=== PATIENT | female | born 2000 | race Caucasian/White ===

== ENCOUNTER 2022-08-25 10:37 | Emergency (ER) | payer OTHER, SELFPAY ==
[2022-08-25 10:38] VITALS: BP 126/92; PULSE 85; RESP 18; TEMP 36.5; O2SAT 100; BMI 42.9
[2022-08-25 10:46] VITALS: BMI 40.7
[2022-08-25 10:56] VITALS: BP 126/92; PULSE 77; O2SAT 99
[2022-08-25 11:07] LABS: Coronavirus 19, PCR Not Detected (NotDetected); Influenza A, PCR Not Detected (NotDetected); Influenza B, PCR Not Detected (NotDetected)
[2022-08-25 11:31] VITALS: BP 127/83; PULSE 64; O2SAT 98
--- NOTE | 2022-08-25 11:37 | PC.NURSE ---
DR. ADAMS AT BEDSIDE
--- NOTE | 2022-08-25 11:50 | XR_ITS ---
FINAL REPORT CLINICAL HISTORY: cough FINDINGS: PORTABLE CHEST The heart is normal in size. The mediastinum is unremarkable. The lungs are clear. There is no pneumothorax. IMPRESSION: No acute process. Reviewed, Interpreted and Dictated by Bola Kahn MD Transcribed by Jesusita Gama Authenticated and [facility]
--- NOTE | 2022-08-25 11:53 | HMH.EDGENADL ---
Discharge Plan Disposition Patient Disposition: Home, Self-Care Condition: Good Referrals Follow up/Referrals: Provider,Referral, [Primary Care Provider] - See instructions Activity Restrictions/Add. Instructions Additional Instructions/Restrictions: Tylenol or ibuprofen for pain or fever. Rest and drink plenty of fluids. Full respiratory panel result is pending, call back to the emergency department in 4 to 6 hours for results. Follow-up with primary care provider if not improving in 4 to 5 days. Clinical Impressions Clinical Impression: Upper respiratory infection, viral Stand Alone Forms Stand Alone Forms: Work/School Release Instructions Patient Instructions: DI for Viral Upper Respiratory Infection -- Adult Discharge ED Provider: Bijan Mccullough General Adult HPI General Chief complaint: Upper Respiratory Infection Stated complaint: Cough, fever Time Seen by Provider: 08/25/22 11:34 Mode of Arrival: Ambulatory Limitations: No Limitations Description of Symptoms (Recalled from ER Triage Doc. by RN): PT REPORTS COUGH, FEVER AND WATERY EYES THAT STARTED LAST NIGHT History of Present Illness HPI narrative: Patient states that she started getting sick last night. She has a cough which was mild initially but has worsened. She is coughing up some green mucus. She feels feverish, but has not taken her temperature. Has watery eyes. Sore throat only from coughing, no pain with swallowing. No earache. No body aches. Slight headache. Slight anterior chest pain. No shortness of breath. No vomiting or diarrhea. No known exposures. Related Data Allergies Allergy/AdvReac Type Severity Reaction Status Date / Time No Known Allergies Allergy Verified 08/25/22 10:51 [facility] Disclaimer: The information contained in this section may have been updated after the patient was seen, as this information can be updated by other users. Social History Smoking Status: Never smoker ROS Obtained: Yes Systems reviewed as appropriate & no additional complaints except as documented Constitutional Constitutional: Denies body ache, Reports fever(s) (Subjective), Reports headache(s) and Denies weakness ENT Ears, Nose, Mouth, and Throat: Reports headache(s), Denies nasal discharge and Reports sore throat (Only with cough) Cardiovascular Cardiovascular: Reports chest pain Respiratory Respiratory: Denies shortness of breath, Reports cough and Reports cough with sputum production Gastrointestinal Gastrointestingal: Denies abdominal pain, constipation, diarrhea or vomiting Genitourinary Female Genitourinary: Denies difficulty voiding, Denies dysuria and Denies flank pain Musculoskeletal Musculoskeletal: Denies numbness Neurologic Neurologic: Reports headache(s), Denies numbness and Denies weakness Physical Exam General General appearance: alert and in no apparent distress Head Head exam: atraumatic and normocephalic Eye Eye exam: Present normal appearance and EOMI ENT ENT exam: Present normal oropharynx, mucous membranes moist and TM's normal bilaterally Neck Neck exam: Present normal inspection and trachea midline Chest Chest inspection: Present normal inspection and symmetric chest wall rise Respiratory Respiratory exam: Present normal lung sounds bilaterally; Absent respiratory distress Cardiovascular Cardiovascular exam: Present regular rate, normal rhythm and normal heart sounds Abdominal Exam Abdominal exam: Present soft and normal bowel sounds; Absent distention, tenderness, guarding, rebound or rigidity Extremities Exam Extremities exam: Present normal inspection Neurological Exam Neurological exam: Present alert and oriented X3 Psychiatric Psychiatric exam: Present normal affect and normal mood Skin Skin exam: Present warm and dry Medical Decision Making Wilman Inquiry Pt receiving controlled substance: No Vital Signs: 08/25/22 10:38 08/25/22 10:56 08/25/22 11:31 Temperature 97.7 F
--- NOTE | 2022-08-25 11:57 | PC.NURSE ---
rad notified of xray order
[2022-08-25 12:08] LABS: Microscopic, Urine URINE MICROSCOPIC (MICROSCOPIC)
[2022-08-25 12:16] LABS: Urine Pregnancy, HCG Qual. Negative (Negative)
[2022-08-25 12:17] LABS: Appearance,Urine CLEAR (Clear); Bilirubin,Urine Negative (Negative); Blood, Urine 3+ (Negative); Color,Urine YELLOW (Yellow); Glucose,Urine (UA) Negative (Negative); Ketones,Urine Negative (Negative); Leukocyte Esterase,Urine 1+ (Negative); Nitrate,Urine Negative (Negative); Protein,Urine Negative (Negative); Specific Gravity, Urine 1.015 (1.005-1.030); Urobilinogen,Urine 0.2 EU/dl (0.2)
[2022-08-25 12:30] LABS: Bacteria,Urine 1+ /lpf
--- NOTE | 2022-08-25 12:37 | PC.NURSE ---
XR AT BEDSIDE
[2022-08-25 12:52] LABS: Adenovirus,PCR Not Detected (NotDetected); Bordetella Pertussis Not Detected (NotDetected); Chlamydophila Pneumoniae, PCR Not Detected (NotDetected); Coronavirus 19, PCR Not Detected (NotDetected); Coronavirus 229E Not Detected (NotDetected); Coronavirus NL63 Not Detected (NotDetected); Coronavirus OC43 Not Detected (NotDetected); Coronovirus HKU1,PCR Not Detected (NotDetected); Human Metapneumovirus Not Detected (NotDetected); Influenza A, PCR Not Detected (NotDetected); Influenza AH1, 2009 Not Detected (NotDetected); Influenza AH1, PCR Not Detected (NotDetected); Influenza AH3,PCR Not Detected (NotDetected); Influenza B, PCR Not Detected (NotDetected); Mycoplasma Pneumoniae, PCR Not Detected (NotDetected); Parainfluenza 1, PCR Not Detected (NotDetected); Parainfluenza 2, PCR Not Detected (NotDetected); Parainfluenza 3, PCR Not Detected (NotDetected); Parainfluenza 4, PCR Not Detected (NotDetected); Respiratory Syncytial Virus Not Detected (NotDetected); Rhinovirus/Enterovirus Not Detected (NotDetected)
[2022-08-25 13:05] VITALS: BP 108/65; PULSE 66; RESP 17; TEMP 37; O2SAT 100
== END 2022-08-25 13:05 | disposition home or self-care (01) ==
PROVIDERS: Emergency Provider Emergency Medicine
DX: J06.9 Acute upper respiratory infection, unspecified (principal); R50.9 Fever, unspecified; Z20.822 Contact with and (suspected) exposure to COVID-19
CPT/HCPCS: 71045; 81001; 81025; 87086; 87581; 87632; 87798; 99283; 99284; C9803; U0003; U0005

== ENCOUNTER 2022-10-25 21:30 | Emergency (ER) | payer OTHER, SELFPAY ==
[2022-10-25 21:31] VITALS: BP 130/87; PULSE 86; RESP 17; TEMP 36.8; O2SAT 98; BMI 45.4
[2022-10-25 21:39] VITALS: BP 130/87; PULSE 102; O2SAT 100
[2022-10-25 21:44] LABS: Coronavirus 19, PCR Not Detected (NotDetected); Influenza A, PCR Not Detected (NotDetected); Influenza B, PCR Not Detected (NotDetected)
--- NOTE | 2022-10-25 21:57 | HMH.EDGENADL ---
Discharge Plan Disposition Patient Disposition: Home, Self-Care Prescriptions Prescriptions: New cephalexin [cephalexin] 500 mg capsule 500 mg PO TID Qty: 21 0RF Referrals Follow up/Referrals: Provider,Referral, [Primary Care Provider] - See instructions Clinical Impressions Clinical Impression: Pharyngitis Instructions Patient Instructions: Sore Throat Discharge ED Provider: Montez BlackmonED)Fuad General Adult HPI General Chief complaint: PAIN Stated complaint: sore throat Time Seen by Provider: 10/25/22 21:57 Mode of Arrival: Ambulatory Source of Information: Patient and Medical Record Limitations: No Limitations Description of Symptoms (Recalled from ER Triage Doc. by RN): 21 F presents with a sore throat for 1 day. Denies fever, chills, or other cold like symptoms. History of Present Illness HPI narrative: sore throat with no cough or rash x 1 day Onset (ago): day(s) Severity: moderate Associated symptoms: denies other symptoms Related Data Previous Rx's Medication Instructions Recorded cephalexin 500 mg capsule 500 mg PO TID #21 caps 10/25/22 Allergies Allergy/AdvReac Type Severity Reaction Status Date / Time No Known Allergies Allergy Verified 08/25/22 10:51 [facility] Disclaimer: The information contained in this section may have been updated after the patient was seen, as this information can be updated by other users. Medical History (Updated 10/25/22 @ 22:18 by Fuad Herrmann (ED)MD) No significant past medical history Surgical History (Updated 10/25/22 @ 21:40 by Richard Mccartney RN) History of cholecystectomy History of tonsillectomy [place] teeth extracted Social History Smoking Status: Never smoker alcohol intake: never current occupational status: employed Travel in the last 8 weeks: None ROS Obtained: Yes All systems reviewed & no additional complaints except as documented Physical Exam General General appearance: alert Head Head exam: normocephalic Eye Eye exam: Present PERRL and EOMI; Absent scleral icterus ENT ENT exam: Present mucous membranes moist and TM's normal bilaterally Expanded ENT Exam Throat exam: Present tonsillar erythema; Absent tonsillar exudate, R peritonsillar mass, L peritonsillar mass or muffled voice Neck Neck exam: Present trachea midline; Absent meningismus Respiratory Respiratory exam: Absent respiratory distress Cardiovascular Cardiovascular exam: Present regular rate Extremities Exam Extremities exam: Present full ROM Neurological Exam Neurological exam: Present alert and CN II-XII intact Skin Skin exam: Absent rash Medical Decision Making Medical Records Medical records reviewed: Yes I reviewed the patient's medical records. Wilman Inquiry Pt receiving controlled substance: No Vital Signs: 10/25/22 21:31 10/25/22 21:39 10/25/22 22:00 Temperature 98.3 F Temperature Source Oral Pulse Rate 102 H 106 H Pulse Rate [Left] 86 Respiratory Rate 17 Blood Pressure 130/87 135/86 Blood Pressure [Right Arm] 130/87 Blood Pressure Mean [Right Arm] 101 Blood Pressure Source [Right Arm] Automatic Cuff Blood Pressure Position [Right Arm] Sitting 02 Sat by Pulse Oximetry 98 100 99 Oxygen Delivery Method Room Air Lab Data Lab results reviewed: Yes I reviewed the patient's lab results. Lab Results 10/25/22 21:38: Group A Strep Rapid Negative 10/25/22 21:38: SARS-CoV-2 (PCR) Not detected, Influenza A Untype (PCR) Not detected, Influenza Type B (PCR) Not detected Orders (Tests/Meds): ORDERS Category Date Time Status Rapid PCR Covid and Flu A/B Stat Lab 10/25/22 21:38 Completed Strep Scrn Group A (Rapid) Stat Lab 10/25/22 21:38 Completed Strep Screen Confirmation Stat Micro 10/25/22 21:38 Received Medical Decision Narrative: acute pharyngitis with no abscess or rash with neg screen Critical Care Time Critical Care Time Critical Care Time: No Attestati
[2022-10-25 21:58] LABS: Strep Scrn Group A (Rapid) Negative (Negative)
[2022-10-25 22:00] VITALS: BP 135/86; PULSE 106; O2SAT 99
[2022-10-25 22:53] VITALS: BP 134/82; PULSE 100; RESP 16; TEMP 36.8; O2SAT 100
== END 2022-10-25 22:54 | disposition home or self-care (01) ==
PROVIDERS: Emergency Provider Emergency Medicine
DX: J02.9 Acute pharyngitis, unspecified (principal); Z90.49 Acquired absence of other specified parts of digestive tract; Z20.822 Contact with and (suspected) exposure to COVID-19
CPT/HCPCS: 87430; 99283; 99284; C9803; U0003; U0005

== ENCOUNTER → 2023-02-25 16:43 | Outpatient (CLI) | payer OTHER, SELFPAY ==
[2023-02-25 12:12] LABS: Microscopic, Urine URINE MICROSCOPIC (MICROSCOPIC)
[2023-02-25 12:24] LABS: Basophils % 0.4 % (0.1-2.0); Eosinophils # 0.1 K/mm3 (0.0-0.4); Eosinophils % 1.6 % (0.1-12.0); Hematocrit 40.2 % (37.0-47.0); Hemoglobin 13.3 g/dL (12.2-16.2); Lymphocytes # 2.4 K/mm3 (0.7-4.5); Lymphocytes % 29.2 % (10-50); Mean Corpuscular Hemoglobin 26.5 pg (27.0-31.2); Mean Corpuscular Volume 80.2 fl (81-99); Mean Platelet Volume 8.7 fl (7.4-10.4); Monocytes # 0.3 K/mm3 (0.1-1.0); Monocytes % 3.7 % (1.7-9.3); Neutrophils # 5.4 K/mm3 (1.8-7.8); Neutrophils % 65.1 % (37.0-80.0); Platelet Count 340 K/mm3 (142-424); Red Blood Count 5.01 M/mm3 (4.20-5.40); Red Cell Distribution Width 14.4 % (11.5-17.5); White Blood Count 8.3 K/mm3 (4.8-10.8)
[2023-02-25 12:25] LABS: Appearance,Urine CLEAR (Clear); Blood, Urine 3+ (Negative); Color,Urine YELLOW (Yellow); Glucose,Urine (UA) Negative (Negative); Ketones,Urine Negative (Negative); Leukocyte Esterase,Urine TRACE (Negative); Nitrate,Urine Negative (Negative); PH,Urine 7.5 (5.0-8.5); Protein,Urine 1+ (Negative)
[2023-02-25 12:39] LABS: Bilirubin,Urine 1+ (Negative)
[2023-02-25 12:40] LABS: Bacteria,Urine Trace /lpf; RBC,Urine TNTC #/hpf (0-3); Squamous Epithelial Cell,Urine Occasional #/hpf (0-5); WBC,Urine Occasional #/hpf (0-3)
[2023-02-25 12:53] LABS: Alanine Aminotransferase 25 U/L (12-78); Albumin Level 4.7 g/dl (3.5-5.0); Albumin/Globulin Ratio 1.5 (1.1-1.8); Alkaline Phosphatase 99 U/L (38-126); Anion Gap 15.4 mEq/L (5-15); Aspartate Amino Transferase 26 U/L (14-36); Bilirubin,Total 0.6 mg/dl (0.2-1.3); Blood Urea Nitrogen 6 mg/dl (7-17); Calcium 9.5 mg/dl (8.4-10.2); Carbon Dioxide 25 mmol/L (22.0-30.0); Chloride 104 mmol/L (98-107); Chol/HDL Ratio 2.9 (1-3.5); Cholesterol 197 mg/dl (140-200); Estimated Glomerular Filt Rate 152 ml/min (>60); GFR (African American) 183 ML/MIN (>60); Globulin 3.1 g/dL (1.3-3.2); Glucose 83 mg/dl (74-100); HDL Cholesterol 68 mg/dl (40-60); Potassium 4.4 mmoL/L (3.5-5.1); Sodium 140 mmol/L (136-145); Total Protein,Serum 7.8 g/dl (6.3-8.2); Triglycerides 114 mg/dl (30-150); VLDL Cholesterol 23 mg/dL (0-40)
[2023-02-25 13:04] LABS: Direct LDL Cholesterol 96.79 mg/dL (100-129)
[2023-02-25 13:05] LABS: Hemoglobin A1C 5.6 % (4.0-6.0)
[2023-02-25 13:08] LABS: 25-OH Vitamin D, Total 18.7 ng/mL (30-100)
[2023-02-25 13:55] LABS: Vitamin B12 276 pg/mL (239-931)
[2023-02-26 20:10] LABS: Neisseria gonorrhoeae, NAA Negative (Negative)
== END ==
PROVIDERS: PCP Nurse Practitioner Family; Visit Provider Nurse Practitioner Family
DX: Z00.00 Encounter for general adult medical examination without abnormal findings (principal); R30.9 Painful micturition, unspecified; E55.9 Vitamin D deficiency, unspecified; R53.83 Other fatigue; E66.01 Morbid (severe) obesity due to excess calories; Z68.42 Body mass index [BMI] 45.0-49.9, adult; Z11.8 Encounter for screening for other infectious and parasitic diseases; Z13.1 Encounter for screening for diabetes mellitus; Z13.220 Encounter for screening for lipoid disorders
CPT/HCPCS: 80053; 80061; 81001; 82306; 82607; 83036; 84443; 85025; 87086; 87491; 87591

== ENCOUNTER 2023-03-11 19:01 | Emergency (ER) | payer OTHER, SELFPAY ==
[2023-03-11 19:04] VITALS: BP 145/109; PULSE 118; RESP 18; TEMP 36.8; O2SAT 98; BMI 46.3
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
[2023-03-11 19:54] VITALS: BP 134/91; PULSE 114; RESP 18; TEMP 36.8
== END 2023-03-11 20:07 | disposition home or self-care (01) ==
PROVIDERS: Emergency Provider Emergency Medicine; PCP Nurse Practitioner Family
DX: S16.1XXA Strain of muscle, fascia and tendon at neck level, initial encounter (principal); R51.9 Headache, unspecified; R11.0 Nausea; V43.62XA Car passenger injured in collision with other type car in traffic accident, initial encounter; F32.A Depression, unspecified
CPT/HCPCS: 99283

== ENCOUNTER → 2023-03-15 16:51 | Outpatient (CLI) | payer OTHER, SELFPAY ==
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
== END ==
PROVIDERS: PCP Nurse Practitioner Family; Visit Provider Nurse Practitioner Family
DX: M54.2 Cervicalgia (principal)
CPT/HCPCS: 72050

== ENCOUNTER → 2023-04-08 10:23 | Outpatient (CLI) | payer OTHER, SELFPAY ==
--- NOTE | 2023-04-08 10:34 | XR_ITS ---
FINAL REPORT CLINICAL HISTORY: Rt wrist pain COMPARISON: None FINDINGS: RIGHT WRIST Three views demonstrate no acute fracture or dislocation. The visualized joint spaces are normally aligned. The soft tissues are unremarkable. IMPRESSION: No acute bony abnormality. Reviewed, Interpreted and Dictated by Feliz Patrick III, MD Transcribed by Genoveva Holder Authenticated and [facility]
== END ==
PROVIDERS: PCP Nurse Practitioner Family; Visit Provider Orthopaedic Surgery
DX: M67.431 Ganglion, right wrist (principal)
CPT/HCPCS: 73110

== ENCOUNTER → 2023-05-24 23:15 | Outpatient (CLI) | payer OTHER, SELFPAY | PROVIDERS: PCP Nurse Practitioner Family; Visit Provider Nurse Practitioner Family | DX: J02.9 Acute pharyngitis, unspecified (principal) | CPT/HCPCS: 87070 ==

== ENCOUNTER → 2023-05-26 09:29 | Outpatient (CLI) | payer OTHER, SELFPAY ==
--- NOTE | 2023-05-26 09:42 | ECG_ITS ---
APPROVED REPORT Exam: Resting ECG HR:78 bpm ECG Measurements Heart Rate 78 AXES NM 144 P 25 QRSd 92 QRS 75 QT 357 T 37 QTc 390 Conclusion SINUS RHYTHM WITH SINUS ARRHYTHMIA NORMAL ECG UNCONFIRMED REPORT Electronically signed by : Last Recinos MD 05/27/2023 07:31:48
[2023-05-26 09:52] LABS: MANUAL DIFFERENTIAL MANUAL DIFFERENTIAL (MANUAL DIFF)
--- NOTE | 2023-05-26 10:01 | XR_ITS ---
FINAL REPORT CLINICAL HISTORY: congestion COMPARISON: 08/25/2022 FINDINGS: Two views of the chest were obtained. The heart size and pulmonary vascularity are within normal limits. The mediastinum is normal. No acute pulmonary abnormality is identified. There is no pneumothorax. The bony thorax is intact. IMPRESSION: No active cardiopulmonary disease. Reviewed, Interpreted and Dictated by Feliz Patrick III, MD Transcribed by Genoveva Holder Authenticated and . [facility]
[2023-05-26 10:12] LABS: Basophils % 0.3 % (0.1-2.0); Eosinophils # 0.1 K/mm3 (0.0-0.4); Eosinophils % 1.1 % (0.1-12.0); Hematocrit 41.8 % (37.0-47.0); Hemoglobin 13.6 g/dL (12.2-16.2); Lymphocytes # 3.1 K/mm3 (0.7-4.5); Mean Corpuscular HGB Conc 32.5 g/dL (31.8-35.4); Mean Corpuscular Hemoglobin 26.9 pg (27.0-31.2); Mean Corpuscular Volume 82.8 fl (81-99); Mean Platelet Volume 8.2 fl (7.4-10.4); Monocytes # 0.2 K/mm3 (0.1-1.0); Monocytes % 2.9 % (1.7-9.3); Neutrophils # 4.7 K/mm3 (1.8-7.8); Neutrophils % 57.7 % (37.0-80.0); Platelet Count 315 K/mm3 (142-424); Red Blood Count 5.05 M/mm3 (4.20-5.40); Red Cell Distribution Width 14.6 % (11.5-17.5); White Blood Count 8.1 K/mm3 (4.8-10.8)
[2023-05-26 10:47] LABS: Alanine Aminotransferase 33 U/L (12-78); Albumin Level 4.2 g/dl (3.5-5.0); Albumin/Globulin Ratio 1.4 (1.1-1.8); Alkaline Phosphatase 92 U/L (38-126); Anion Gap 12.4 mEq/L (5-15); Aspartate Amino Transferase 33 U/L (14-36); Bilirubin,Total 0.3 mg/dl (0.2-1.3); Blood Urea Nitrogen 14 mg/dl (7-17); Calcium 9.1 mg/dl (8.4-10.2); Carbon Dioxide 27 mmol/L (22.0-30.0); Chloride 103 mmol/L (98-107); Estimated Glomerular Filt Rate 123 ml/min (>60); GFR (African American) 149 ML/MIN (>60); Globulin 3.1 g/dL (1.3-3.2); Glucose 106 mg/dl (74-100); Potassium 4.4 mmoL/L (3.5-5.1); Sodium 138 mmol/L (136-145); Total Protein,Serum 7.3 g/dl (6.3-8.2)
[2023-05-26 11:36] LABS: Eosinophils % 1 % (0-3); Lymphocytes % 38 % (10-50); Monocytes % 5 % (2-9); Neutrophils % 55 % (42-76); Total Cells Counted 100
[2023-05-26 11:37] LABS: Platelet Estimate Normal; RBC Morphology Normal
== END ==
PROVIDERS: PCP Nurse Practitioner Family; Visit Provider Orthopaedic Surgery
DX: Z01.818 Encounter for other preprocedural examination (principal); M67.431 Ganglion, right wrist
CPT/HCPCS: 36415; 71046; 80053; 85007; 85014; 85018; 85048; 85049; 93005

== ENCOUNTER 2023-06-01 11:19 | Day surgery (SDC) | payer OTHER, SELFPAY ==
[2023-06-01] VITALS (8 sets, daily range): BP systolic 113–140; BP diastolic 68–89; PULSE 68–96; RESP 16–18; TEMP 36.4–36.6; O2SAT 97–100; BMI 46.5
[2023-06-01 11:43] LABS: Urine Pregnancy, HCG Qual. Negative (Negative)
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
--- NOTE | 2023-06-01 14:16 | P.OP_ITS ---
Date of procedure: 06/01/23 Pre-op Diagnosis:: Right wrist dorsal ganglion cyst Post-op Diagnosis:: Right wrist dorsal ganglion cyst Procedure performed:: Right wrist dorsal ganglion cyst excision Surgeon:: Madhu Calvin MD Hourly Caregiver(s):: None ICE DELIVERY DRIVER:: Other Anesthesia: local and LMA Estimated blood loss (mL): 0 Clinical Note:: Penelope is a pleasant 22-year-old female dealing with right dorsal wrist pain and swelling over the past couple months secondary to a ganglion cyst. A cortisone injection only helped for a few days. We discussed all the risks, benefits and alternatives to right wrist dorsal ganglion cyst excision and she agreed to proceed. Surgical consent form was signed. Operative findings:: Right wrist dorsal ganglion cyst off the scapholunate joint Operative note:: The patient was seen in the preoperative holding area. The right wrist was marked to confirm the correct operative site. She received Ancef 2 g IV prophylactic antibiotics within 1 hour of incision time. She was brought back to the OR. General anesthesia induced without difficulty. Nonsterile tourniquet applied to the right arm. Right upper extremity prepped and draped in the usual sterile fashion. Timeout formed to confirm right wrist dorsal ganglion cyst excision on patient Penelope Christina. The right extremity was exsanguinated with an Esmarch. Tourniquet was inflated to 250 mmHg. I made a horizontal incision with a 15 blade scalpel centered over the dorsal wrist ganglion cyst. This was carried down through subcutaneous tissue. The cyst was identified. Tenotomy scissors were used to dissected around the cyst along with Ragnell retractors. The cyst came off the scapholunate joint. Extensor tendons were protected with the Ragnell retractors. The cyst was excised off the dorsal aspect the scapholunate joint. About 1 x 1 cm in size. Consistent with a ganglion cyst in appearance so was not sent to pathology. Dorsal aspect of the scapholunate capsule where the cyst stalk came off was cauterized with bipolar electrocautery to help prevent cyst recurrence. Bipolar also used in the subcutaneous tissue to maintain adequate hemostasis. At this time with the wound was irrigated with sterile saline. We then proceeded with closure. The dermis was closed with interrupted 3-0 Vicryl suture. The skin was closed with a running 4-0 Monocryl subcuticular suture. We then applied Dermabond. Then a sterile dressing with 4 x 4, soft roll and a 3 inch J Carlos bandage. Tourniquet was deflated at 18 minutes. Transferred to recovery in stable condition. All sponge and needle counts correct x2. Postoperative plan: Plan to discharge home from recovery. Okay to remove the soft dressing in a few days but keep the dorsal wrist incision clean and dry until her follow-up appointment. Hydrocodone 5/325 mg to take as needed for pain. We will see her back in the office on 06/23. Tourniquet time (min): 18 Condition: stable Disposition: PACU Specimens:: Right dorsal wrist ganglion cyst. Not sent to pathology. Complications:: None
--- NOTE | 2023-06-01 14:26 | EXP.ANES.I ---
[facility] Anesthesia Record Part I Anesthesia Record I Intake, IV Amount: 500 Hydration: Adequate Estimated blood loss (mL): 5 Urine output (mL): 0 Blood Products used (#): none Blood Pressure: 140/78 SaO2: 98 Pulse Rate: 96 Airway Patency: Patent Respiratory Rate: 16 Temperature: 97.5 F Patient is:: Awake and Stable Stable to PACU at:: 14:22
--- NOTE | 2023-06-02 08:19 | EXP.ANES.II ---
[facility] Anesthesia Record Part II Anesthesia Record Part II Discharge Time: 14:47 Destination: Surgical Day Care (OP Surgery) PACU nurse assessment reviewed?: Yes Patient Condition:: Good Anesthesia Complications:: None Swallowing reflex intact?: Yes Airway Patency: Patent Cyanosis?: No Blood Pressure: 131/68 SaO2: 97 Respiratory Rate: 18 Pulse Rate: 74 Temperature: 97.5 F Mental Status: Alert & Oriented Pain level:: 0 Nausea and/or vomitting:: None Intake, IV Amount: 500 Hydration: Adequate
[2023-06-02 08:20] VITALS: BP 131/68; PULSE 74; RESP 18; TEMP 36.4; O2SAT 97
== END 2023-06-01 15:16 | disposition home or self-care (01) ==
PROVIDERS: PCP Nurse Practitioner Family; Visit Provider Orthopaedic Surgery
PROC: (CPT 25111; principal; 2023-06-01 13:00)
DX: M67.431 Ganglion, right wrist (principal); M25.531 Pain in right wrist
CPT/HCPCS: 25111; 81025; 96374; J2405

== ENCOUNTER → 2023-07-26 23:59 | Outpatient (CLI) | payer OTHER, SELFPAY ==
[2023-07-26 17:29] LABS: Adenovirus,PCR Not Detected (NotDetected); Coronavirus 19, PCR Not Detected (NotDetected); Coronavirus 229E Not Detected (NotDetected); Coronavirus NL63 Not Detected (NotDetected); Coronavirus OC43 Not Detected (NotDetected); Coronovirus HKU1,PCR Not Detected (NotDetected); Human Metapneumovirus Not Detected (NotDetected); Influenza A, PCR Not Detected (NotDetected); Influenza AH1, 2009 Not Detected (NotDetected); Influenza AH1, PCR Not Detected (NotDetected); Influenza AH3,PCR Not Detected (NotDetected); Influenza B, PCR Not Detected (NotDetected); Parainfluenza 1, PCR Not Detected (NotDetected); Parainfluenza 2, PCR Not Detected (NotDetected); Parainfluenza 3, PCR Not Detected (NotDetected); Parainfluenza 4, PCR Not Detected (NotDetected); Rhinovirus/Enterovirus Not Detected (NotDetected)
[2023-07-26 21:05] LABS: Respiratory Syncytial Virus Detected (NotDetected)
== END ==
PROVIDERS: PCP Nurse Practitioner Family; Visit Provider Nurse Practitioner Family
DX: R35.0 Frequency of micturition (principal); J02.9 Acute pharyngitis, unspecified; B95.0 Streptococcus, group A, as the cause of diseases classified elsewhere; B96.89 Other specified bacterial agents as the cause of diseases classified elsewhere; B97.4 Respiratory syncytial virus as the cause of diseases classified elsewhere
CPT/HCPCS: 87070; 87086; 87632; 87635

== ENCOUNTER 2023-10-08 09:15 | Emergency (ER) | payer OTHER, SELFPAY ==
[2023-10-08 09:15] VITALS: BP 147/90; PULSE 86; RESP 16; TEMP 36.6; O2SAT 97; BMI 48.2
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
[2023-10-08] MEDS: ONDANSETRON 4MG ODT 4 MG SL (09:40)
[2023-10-08 10:01] LABS: Coronavirus 19, PCR Not Detected (NotDetected); Influenza A, PCR Not Detected (NotDetected); Influenza B, PCR Not Detected (NotDetected)
[2023-10-08 10:01] LABS: Strep Scrn Group A (Rapid) Negative (Negative)
[2023-10-08 10:21] VITALS: BP 128/76; PULSE 84; RESP 14; TEMP 36.6
== END 2023-10-08 10:16 | disposition home or self-care (01) ==
PROVIDERS: Emergency Provider Emergency Medicine; PCP Nurse Practitioner Family
DX: R05.1 Acute cough (principal); R07.0 Pain in throat; R11.0 Nausea; Z20.818 Contact with and (suspected) exposure to other bacterial communicable diseases; Z20.828 Contact with and (suspected) exposure to other viral communicable diseases
CPT/HCPCS: 87430; 87636; 99283

== ENCOUNTER 2023-10-18 15:59 | Emergency (ER) | payer OTHER, SELFPAY ==
[2023-10-18 16:01] VITALS: BP 154/94; PULSE 105; RESP 16; TEMP 36.7; O2SAT 100; BMI 48.2
[2023-10-18] MEDS: IBUPROFEN 400 MG TABLET 800 MG PO (16:48)
[2023-10-18] MEDS: DEXAMETHASONE 4MG TABLET 10 MG PO (16:48)
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
[2023-10-18 16:52] LABS: Influenza A, PCR Not Detected (NotDetected); Influenza B, PCR Not Detected (NotDetected)
[2023-10-18 17:24] LABS: Coronavirus 19, PCR Detected (NotDetected)
[2023-10-18 17:29] VITALS: BP 140/86; PULSE 96; O2SAT 97
--- NOTE | 2023-10-18 17:53 | PC.NURSE ---
I called lab to check on the strep swab. Gerber states it will be done in two minutes.
[2023-10-18 17:54] LABS: Strep Scrn Group A (Rapid) Negative (Negative)
[2023-10-18 18:46] VITALS: BP 140/86; PULSE 96; RESP 18; TEMP 36.7; O2SAT 97
== END 2023-10-18 18:47 | disposition home or self-care (01) ==
PROVIDERS: Emergency Provider Student in an Organized Health Care Education/Training Program; PCP Nurse Practitioner Family
DX: U07.1 COVID-19 (principal); J02.9 Acute pharyngitis, unspecified; R50.9 Fever, unspecified; R05.9 Cough, unspecified
CPT/HCPCS: 87430; 87636; 99283

== ENCOUNTER 2024-04-19 12:57 | Outpatient (POV) | payer BC, OTHER, SELFPAY ==
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
[2024-04-19 14:39] VITALS: BP 134/86; PULSE 98; RESP 18; O2SAT 100; BMI 49.9
== END 2024-04-19 23:59 | disposition home or self-care (01) ==
PROVIDERS: PCP Nurse Practitioner Family; Visit Provider Nurse Practitioner Family
DX: M79.7 Fibromyalgia (principal); M54.50 Low back pain, unspecified; M54.2 Cervicalgia
CPT/HCPCS: 99202; G0463

== ENCOUNTER 2024-05-24 13:08 | Outpatient (CLI) | payer OTHER, SELFPAY ==
--- NOTE | 2024-05-24 13:17 | XR_ITS ---
FINAL REPORT CLINICAL HISTORY: left ankle pain and swelling COMPARISON: None FINDINGS: LEFT ANKLE Three views demonstrate no acute fracture or dislocation. The visualized joint spaces are normally aligned. The soft tissues are unremarkable. IMPRESSION: No acute bony abnormality. Reviewed, Interpreted and Dictated by Rodney Beth MD Transcribed by Genoveva Holder Authenticated and . [facility]
--- NOTE | 2024-05-24 13:17 | XR_ITS ---
FINAL REPORT TECHNIQUE: Chest PA & Lateral CLINICAL HISTORY: Shortness of breath x1 month COMPARISON: 05/26/2023 FINDINGS: 2 views of the chest were performed. The heart size is normal. The mediastinum is within normal limits. There is no acute cardiopulmonary process. There are no pleural effusions. There is no pneumothorax. The bony thorax appears intact. IMPRESSION: No acute cardiopulmonary process. Reviewed, Interpreted and Dictated by Rodney Beth MD Transcribed by Brittany Roach Authenticated and [facility]
[2024-05-24 13:49] LABS: Basophils # 0.1 K/mm3 (0-0.2); Basophils % 0.8 % (0.1-2.0); Eosinophils # 0.1 K/mm3 (0.0-0.4); Eosinophils % 1.2 % (0.1-12.0); Hematocrit 42.1 % (37.0-47.0); Hemoglobin 13.5 g/dL (12.2-16.2); Lymphocytes # 3.2 K/mm3 (0.7-4.5); Lymphocytes % 30.4 % (10-50); Mean Corpuscular HGB Conc 32.1 g/dL (31.8-35.4); Mean Corpuscular Hemoglobin 27.2 pg (27.0-31.2); Mean Corpuscular Volume 84.6 fl (81-99); Mean Platelet Volume 7.7 fl (7.4-10.4); Monocytes # 0.4 K/mm3 (0.1-1.0); Monocytes % 3.5 % (1.7-9.3); Neutrophils # 6.7 K/mm3 (1.8-7.8); Neutrophils % 64.1 % (37.0-80.0); Platelet Count 338 K/mm3 (142-424); Red Blood Count 4.97 M/mm3 (4.20-5.40); Red Cell Distribution Width 14.5 % (11.5-17.5); White Blood Count 10.5 K/mm3 (4.8-10.8)
[2024-05-24 14:48] LABS: Hemoglobin A1C 5.8 % (4.0-6.0)
[2024-05-24 20:18] LABS: Adenovirus,PCR Not Detected (NotDetected); Bordetella Pertussis Not Detected (NotDetected); Chlamydophila Pneumoniae, PCR Not Detected (NotDetected); Coronavirus 19, PCR Not Detected (NotDetected); Coronavirus 229E Not Detected (NotDetected); Coronavirus NL63 Not Detected (NotDetected); Coronavirus OC43 Not Detected (NotDetected); Coronovirus HKU1,PCR Not Detected (NotDetected); Human Metapneumovirus Not Detected (NotDetected); Influenza A, PCR Not Detected (NotDetected); Influenza AH1, 2009 Not Detected (NotDetected); Influenza AH1, PCR Not Detected (NotDetected); Influenza AH3,PCR Not Detected (NotDetected); Influenza B, PCR Not Detected (NotDetected); Microscopic, Urine URINE MICROSCOPIC (MICROSCOPIC); Mycoplasma Pneumoniae, PCR Not Detected (NotDetected); Parainfluenza 1, PCR Not Detected (NotDetected); Parainfluenza 2, PCR Not Detected (NotDetected); Parainfluenza 3, PCR Not Detected (NotDetected); Parainfluenza 4, PCR Not Detected (NotDetected); Respiratory Syncytial Virus Not Detected (NotDetected); Rhinovirus/Enterovirus Not Detected (NotDetected)
[2024-05-24 20:46] LABS: Alanine Aminotransferase 28 U/L (12-78); Albumin Level 4.5 g/dl (3.5-5.0); Albumin/Globulin Ratio 1.6 (1.1-1.8); Alkaline Phosphatase 82 U/L (38-126); Anion Gap 9.2 mEq/L (5-15); Aspartate Amino Transferase 29 U/L (14-36); Bilirubin,Total 0.7 mg/dl (0.2-1.3); Blood Urea Nitrogen 8 mg/dl (7-17); Calcium 9.7 mg/dl (8.4-10.2); Carbon Dioxide 29 mmol/L (22.0-30.0); Chloride 102 mmol/L (98-107); Chol/HDL Ratio 2.7 (1-3.5); Cholesterol 191 mg/dl (140-200); Estimated Glomerular Filt Rate 150 ml/min (>60); GFR (African American) 182 ML/MIN (>60); Globulin 2.9 g/dL (1.3-3.2); Glucose 79 mg/dl (74-100); HDL Cholesterol 72 mg/dl (40-60); Potassium 4.2 mmoL/L (3.5-5.1); Sodium 136 mmol/L (136-145); Total Protein,Serum 7.4 g/dl (6.3-8.2); Triglycerides 159 mg/dl (30-150); VLDL Cholesterol 32 mg/dL (0-40)
[2024-05-24 21:03] LABS: 25-OH Vitamin D, Total 26.1 ng/mL (30-100); Free T4 (Free Thyroxine) 1.06 ng/dl (0.78-2.19)
[2024-05-24 21:18] LABS: Thyroid Stimulating Hormone 1.13 uIU/mL (0.465-4.68)
[2024-05-24 21:37] LABS: Vitamin B12 339 pg/mL (239-931)
[2024-05-24 21:38] LABS: Appearance,Urine SL CLOUDY (Clear); Bilirubin,Urine Negative (Negative); Blood, Urine Negative (Negative); Color,Urine YELLOW (Yellow); Glucose,Urine (UA) Negative (Negative); Ketones,Urine Negative (Negative); Leukocyte Esterase,Urine Negative (Negative); Nitrate,Urine Negative (Negative); PH,Urine 8.5 (5.0-8.5); Protein,Urine Negative (Negative)
[2024-05-24 21:46] LABS: Bacteria,Urine 1+ /lpf; WBC,Urine Occasional #/hpf (0-3)
[2024-05-24 21:47] LABS: HIV (1&2) Antibody Rapid NONREACTIVE (NONREACTIVE)
[2024-05-24 22:16] LABS: Iron 57 ug/dL (37-170)
[2024-05-24 22:25] LABS: Total Iron Binding Capacity 400 ug/dL (265-497)
[2024-05-24 22:30] LABS: Direct LDL Cholesterol 87.01 mg/dL (100-129)
[2024-05-24 22:58] LABS: Ferritin 18.4 ng/ml (6.24-137)
== END 2024-05-24 23:59 | disposition home or self-care (01) ==
LOC: LAB 14:30
PROVIDERS: PCP Nurse Practitioner Family; Visit Provider Nurse Practitioner Family
DX: M25.472 Effusion, left ankle (principal); M25.572 Pain in left ankle and joints of left foot; R06.00 Dyspnea, unspecified; Z68.43 Body mass index [BMI] 50.0-59.9, adult; E55.9 Vitamin D deficiency, unspecified; B97.89 Other viral agents as the cause of diseases classified elsewhere; J98.8 Other specified respiratory disorders; R53.83 Other fatigue; Z13.1 Encounter for screening for diabetes mellitus; I10 Essential (primary) hypertension; R60.0 Localized edema; Z11.4 Encounter for screening for human immunodeficiency virus [HIV]; R42 Dizziness and giddiness; R51.9 Headache, unspecified; E61.1 Iron deficiency; R73.03 Prediabetes; M79.7 Fibromyalgia
CPT/HCPCS: 36415; 71046; 73610; 80050; 80053; 80061; 81001; 82306; 82607; 82728; 83036; 83540; 83550; 84439; 84443; 85025; 87086; 87265; 87389; 87486; 87581; 87632; 87635

== ENCOUNTER 2024-05-30 14:53 | Outpatient (CLI) | payer OTHER, SELFPAY | END 2024-05-30 23:59 | disposition home or self-care (01) | LOC: RT 14:54 | PROVIDERS: PCP Nurse Practitioner Family; Visit Provider Nurse Practitioner Family | DX: R06.00 Dyspnea, unspecified (principal) | CPT/HCPCS: 94060 ==

== ENCOUNTER 2024-09-12 14:27 | Outpatient (POV) | payer OTHER, SELFPAY ==
[2024-09-12 14:30] VITALS: BP 167/98; PULSE 98; RESP 16; O2SAT 96; BMI 48.4
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
== END 2024-09-12 23:59 | disposition home or self-care (01) ==
PROVIDERS: PCP Nurse Practitioner Family; Visit Provider Nurse Practitioner Family
DX: M79.7 Fibromyalgia (principal)
CPT/HCPCS: 99212; G0463

== ENCOUNTER 2024-10-11 14:56 | Outpatient (POV) | payer OTHER, SELFPAY ==
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
[2024-10-11 15:44] VITALS: BP 137/64; PULSE 85; RESP 18; O2SAT 96; BMI 48.4
== END 2024-10-11 23:59 | disposition home or self-care (01) ==
PROVIDERS: PCP Nurse Practitioner Family; Visit Provider Nurse Practitioner Family
DX: M79.7 Fibromyalgia (principal)
CPT/HCPCS: 99212; G0463

== ENCOUNTER 2024-10-25 16:44 | Outpatient (CLI) | payer OTHER, SELFPAY | END 2024-10-25 23:59 | disposition home or self-care (01) | LOC: LAB.DROPOF 16:45 | PROVIDERS: PCP Nurse Practitioner Family; Visit Provider Nurse Practitioner Family | DX: N39.0 Urinary tract infection, site not specified (principal) | CPT/HCPCS: 87086 ==

== ENCOUNTER 2024-11-08 16:53 | Emergency (ER) | payer OTHER, SELFPAY ==
[2024-11-08 17:10] VITALS: BP 123/82; PULSE 93; RESP 18; TEMP 36.4; O2SAT 100; BMI 44.1
[2024-11-08 17:45] VITALS: BP 128/78; PULSE 83; RESP 18; TEMP 36.6; O2SAT 98
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
[2024-11-08] MEDS: ONDANSETRON 4MG ODT 4 MG SL (18:32)
== END 2024-11-08 19:09 | disposition home or self-care (01) ==
PROVIDERS: Emergency Provider Emergency Medicine; PCP Nurse Practitioner Family
DX: R11.2 Nausea with vomiting, unspecified (principal); R19.7 Diarrhea, unspecified; R05.9 Cough, unspecified; Z20.828 Contact with and (suspected) exposure to other viral communicable diseases
CPT/HCPCS: 99283; Q0162

== ENCOUNTER 2024-11-10 08:28 | Outpatient (CLI) | payer OTHER, SELFPAY ==
--- NOTE | 2024-11-10 08:29 | FL_ITS ---
FINAL REPORT CLINICAL HISTORY: NAUSEA AND VOMITING FT: 1:46 153.50 MGY FINDINGS: UPPER GI EXAM HISTORY: Epigastric pain with nausea and vomiting PROCEDURE: The patient ingested barium. Effervescent crystals were also administered. 17 spot and overhead films were obtained. FINDINGS: No esophageal stricture is identified. There is no hiatal hernia. The patient is status post gastric bbypass. The gastric pouch empties appropriately. No obstruction or extravasation of contrast is identified. No gastroesophageal reflux was demonstrated during the exam. Fluoro time: 1 minute 46 seconds Radiation exposure in Reference air Kerma: 153.50 mGy. IMPRESSION: Postoperative changes of gastric bypass. Otherwise, unremarkable exam. Films reviewed , interpreted and dictated by Dr. Kahn. Transcribed by Pelon Morris PA-C. Reviewed, Interpreted and Dictated by Bola Kahn MD Transcribed by ANAIS Oreilly Authenticated and [facility]
[2024-11-10] MEDS: BARIUM SULFATE(LIQUID E-Z-PAQUE);355ML BOTTLE 355 ML PO (09:06)
[2024-11-10] MEDS: BARIUM SULFATE (E-Z-HD 340GM);135ML BOTTLE 135 ML PO (09:06)
== END 2024-11-10 23:59 | disposition home or self-care (01) ==
LOC: RAD 08:28
PROVIDERS: PCP Nurse Practitioner Family; Visit Provider Physician Assistant
DX: R11.2 Nausea with vomiting, unspecified (principal)
CPT/HCPCS: 74246

== ENCOUNTER 2024-12-14 10:45 | Emergency (ER) | payer OTHER, SELFPAY ==
[2024-12-14 10:55] VITALS: BP 136/86; PULSE 78; RESP 18; TEMP 36.9; O2SAT 98; BMI 41.5
--- OUTSIDE RECORDS SUMMARY | 2024-12-14 11:02 | XMS_ITS | Continuity of Care Document ---
Author Organization [facility] Phone Care Team Providers Care Senior Sales Associate Name Role Phone DEANNA BENSON Admitting DEANNA BENSON Primary Attending KARLOS CHESTER Primary Care Unavailable DEANNA BENSON Unavailable MARY JANE MAST Surgeon Unavailable DEANNA BENSON Surgeon ALLERGIES AND ADVERSE REACTIONS ALLERGIES AND ADVERSE REACTIONS Code System Allergy Substance Adverse Reaction Date Reaction (Severity) Comment Status Reported By Updated By No Known Allergies [id number] on October 16, 2024 12:35:39 PM UTC ASSESSMENTS Morbid obesity ; FAMILY HISTORY RELATION: Father Status: Cause of : Unknown Age at : Unknown SNOMED-CT Diagnosis Age At Onset Information not available RELATION: Mother Status: LIVING SNOMED-CT Diagnosis Age At Onset [id number] Chronic obstructive pulmonary di sease [id number] Asthma [id number] H/O: depression PROBLEMS PATIENT PROBLEMS Code Description/Comments Category Status Upda kinsey By [id number] Morbid obesity active [id number] on October 11, 2024 7:33:58 PM UTC RESULTS Patient: RENÉ Leavitt Date of : [birth year] 5 LABORATORY RESULTS ORDER 400: URINE T EST (LOINC: 2105-10) ORDER DATE: October 13, 2024 3:20:00 PM UTC Specimen Source: URINE Specimen Type: Urine specime n PERFORMING LAB: [address] [id number] Result Comment: Final Result Date: October 16, 2024 12:07:00 PM UTC (TECH: SHG) LOINC TEST FLAG RESULT REFERENCE RANGE UPDA KINSEY BY 2105-10 Choriogonadotropin ( test) [Presence] in Urine N NEGATIVE NEGATIVE October 16, 2024 12:07:00 PM UTC (TECH: SHG) 05581-1 Reagent Lot number N [id number] F ebruary 2024 12:07:00 PM UTC (TECH: SHG) 44859-9 Choriogonadotropin [Units/volume] in Serum or Plasma N --2024October 16, 2024 12:07:00 PM UTC (TECH: SHG) 34007-7 Internal control result N OK POSITI VE October 16, 2024 12:07:00 PM UTC (TECH: SHG) ORDER 500: GLUCOSE BEDSIDE T ESTING (LOINC: 74242-9) ORDER DATE: October 16, 2024 12:23:00 PM UTC Specimen Source: WHOLE BLOOD Specimen Type: Whole blood s ample PERFORMING LAB: [address] [id number] Result Comment: October 16, 2024 12:30:00 PM UTC Test performed by: [id number] ; Instrument: [id number] Final Result Date: October 16, 2024 12:30:00 PM UTC LOINC TEST FLAG RESULT [place] [address]-7 Glucose [Mass/volume] in Capillary blood by Glucometer H 107 mg/dl 70 mg/dl - 105 mg/dl October 16, 2024 12:30:00 PM UTC ORDER 1300: HGB AND HCT ([place] NC: 81809-6) ORDER DATE: October 16, 2024 12:38:00 PM UTC Specimen Source: EDTA Specimen Type: Blood specime n with EDTA PERFORMING LAB: [address] [id number] Result Comment: Final Result Date: October 16, 2024 6:08:00 PM UTC (TECH: KAC) LOINC TEST FLAG RESULT REFERENCE RANGE UPDA KINSEY BY 718-7 Hemoglobin [Mass/volume] in Blood N 12.9 gm/dl 12.5 gm/dl - 16.0 gm/dl October 16, 2024 6:08:00 PM UTC (TECH: KAC) 78037-7 Hematocrit [Volume Fraction] of Blood N 39.6 % 37.0 % - 47.0 % October 16, 2024 6:08:00 PM UTC (TECH: KAC) ORDER 1401: CBC AUTO W DIFF (LOINC: 45527-1) ORDER DATE: October 16, 2024 12:38:00 PM UTC Specimen Source: EDTA Specimen Type: Blood specime n with EDTA PERFORMING LAB: [facility] [address] [facility] [id number] Result Comment: Final Result Date: October 17, 2024 10:49:00 AM UTC (TECH: AAC) LOINC TEST FLAG RESULT REFERENCE RANGE UPDA KINSEY BY 6690-2 Leukocytes [#/volume] in Blood by Automated count N 10.5 K/ul 4.0 K/ul - 10.5 K/ul October 17, 2024 10:49:00 AM UTC (TECH: AAC) 789-8 Erythrocytes [#/volume] in Blood by Automated count N 4.6 M/mm3 4.2 M/mm3 - 6.4 M/mm3 October 17, 2024 10:49:00 AM UTC (TECH: AAC) 718-7 Hemoglobin [Mass/volume] in Blood N 12.9 gm/dl 12.5 gm/dl - 16.0 gm/dl October 17, 2024 10:49:00 AM UTC (TECH: AAC) 58197-1 Hematocrit [Volume Fraction] of Blood N 39.4 % 37.0 % - 47.0 % October 17, 2024 10:49:00 AM UTC (TECH: AAC) 787-2 Erythrocyte mean corpuscular volume [Entitic volume] by Automated count N 86.4 fl 78 fl - 100 fl October 17, 2024 10:49:00 AM UTC (TECH: AAC) 785-6 Erythrocyte mean corpuscular hemoglobin [Entitic mass] by Automated count N 28.3 pg 27 pg - 31 pg October 17, 2024 10:49:00 AM UTC (TECH: AAC) 786-4 Erythrocyte mean corpuscular hemoglobin concentration [Mass/volume] by Automated count N 32.7 g/dl 32 g/dl - 36 g/dl October 17, 2024 10:49:00 AM UTC (TECH: AAC) 52473-3 Erythrocyte distribution width [Ratio] H 14.4 % 11.5 % - 14.0 % October 17, 2024 10:49:00 AM UTC (TECH: AAC) 777-3 Platelets [#/volume] in Blood by Automated count N 240 K/ul 150 K/ul - 450 K/ul October 17, 2024 10:49:00 AM UTC (TECH: AAC) 66918-0 Platelet mean volume [Entitic volume] in Blood by Automated count H 11.7 fl 6 fl - 9.5 fl October 17, 2024 10:49:00 AM UTC (TECH: AAC) 34582-3 Neutrophils/100 leukocytes in Blood H 84.7 % 43 % - 65 % October 17, 2024 10:49:00 AM UTC (TECH: AAC) 736-9 Lymphocytes/100 leukocytes in Blood by Automated count L 9.4 % 20.5 % - 45.5 % October 17, 2024 10:49:00 AM UTC (TECH: AAC) 5905-5 Monocytes/100 leukocytes in Blood by Automated count L 4.7 % 5.5 % - 11.7 % October 17, 2024 10:49:00 AM UTC (TECH: AAC) 713-8 Eosinophils/100 leukocytes in Blood by Automated count L 0.8 % 0.9 % - 2.9 % October 17, 2024 10:49:00 AM UTC (TECH: AAC) 706-2 Basophils/100 leukocytes in Blood by Automated count L 0.1 % 0.2 % - 1.0 % October 17, 2024 10:49:00 AM UTC (TECH: AAC) 44175-2 Immature granulocytes/100 leukocytes in Blood by Automated count N 0.3 % 0.0 % - 0.8 % October 17, 2024 10:49:00 AM UTC (TECH: AAC) 72745-2 Nucleated cells [#/volume] in Blood N 0.0 % October 17, 2024 10:49:00 AM UTC (TECH: AAC) 77336-9 Neutrophils [#/volume] in Blood H 8.9 K/uL 2.2 K/uL - 4.8 K/uL October 17, 2024 10:49:00 AM UTC (TECH: AAC) 731-0 Lymphocytes [#/volume] in Blood by Automated count L 1.0 CELL/MCL 1.3 CELL/MCL - 2.9 CELL/MCL October 17, 2024 10:49:00 AM UTC (TECH: AAC) 742-7 Monocytes [#/volume] in Blood by Automated count N 0.5 CELL/MCL 0.3 CELL/MCL - 0.8 CELL/MCL October 17, 2024 10:49:00 AM UTC (TECH: AAC) 711-2 Eosinophils [#/volume] in Blood by Automated count N 0.1 CELL/MCL 0 CELL/MCL - 0.2 CELL/MCL October 17, 2024 10:49:00 AM [facility] (TECH: AAC) 704-7 Basophils [#/volume] in Blood by Automated count N 0.0 CELL/MCL 0.0 CELL/MCL - 1.0 CELL/MCL October 17, 2024 10:49:00 AM [place] (TECH: AAC) 58992-3 Immature granulocytes [#/volume] in Blood N 0.03 K/ul October 17, 2024 10:49:00 AM [place] (TECH: AAC) 84805-7 Nucleated cells [#/volume] in Blood N 0.00 K/uL October 17, 2024 10:49:00 AM [facility] (TECH: [employer]) 09725-5 Manual Differential panel - Blood N NO October 17, 2024 10:49:00 AM [facility] (TECH: [employer]) ORDER 1501: COMP METABOLIC P KATARINA (LOINC: 95109-5) ORDER DATE: October 16, 2024 12:38:00 PM [facility] Specimen Source: PLASMA Specimen Type: Plasma specim en PERFORMING LAB: [address] [id number] Result Comment: Final Result Date: October 17, 2024 11:10:00 AM [facility] (TECH: [employer]) LOINC TEST FLAG RESULT REFERENCE RANGE UPDA KINSEY BY 2951-2 Sodium [Moles/volume ] in Serum or Plasma N 138 mmol/L 136 mmol/L - 145 mmol/L October 17, 2024 11:10:00 AM [place] (TECH: SHG) 2823-3 Potassium [Moles/vol ume] in Serum or Plasma N 4.1 mmol/L 3.6 mmol/L - 5.0 mmol/L October 17, 2024 11:10:00 AM [place] (TECH: SHG) 5-0 Chloride [Moles/volu me] in Serum or Plasma N 102 mmol/L 98 mmol/L - 107 mmol/L October 17, 2024 11:10:00 AM [place] (TECH: SHG) 2027-9 Carbon dioxide, tota l [Moles/volume] in Serum or Plasma N 26.8 mmol/L 21.0 mmol/L - 32.0 mmol/L October 17, 2024 11:10:00 AM [place] (TECH: [employer]) 50759-7 Anion gap in Blood N 13.3 F ebruary 2024 11:10:00 AM UTC (TECH: [employer]) 2345-7 Glucose [Mass/volume ] in Serum or Plasma H 129 mg/dl 70 mg/dl - 120 mg/dl October 17, 2024 11:10:00 AM UTC (TECH: [employer]) 6299-2 Urea nitrogen [Mass/volume] in Blood N 7 mg/dL 7 mg/dL - 18 mg/dL 2024 11:10:00 AM [place] (TECH: [employer]) 78152-3 Creatinine [Moles/vo lume] in Blood N 0.6 mg/dL 0.6 mg/dL - 1.3 mg/dL October 17, 2024 11:10:00 AM [facility] ([employer] Keyboard: [employer]) 80569-2 Glomerular filtratio n rate/1.73 sq M.predicted by Creatinine-based formula (MDRD) N 128 mlpermin 60 mlpermin October 17, 2024 11:10:00 AM [facility] (TECH: [employer]) 2885-2 Protein [Mass/volume ] in Serum or Plasma N 6.9 g/dl 6.4 g/dl - 8.2 g/dl October 17, 2024 11:10:00 AM [facility] (TECH: [employer]) 1751-7 Albumin [Mass/volume ] in Serum or Plasma L 3.3 g/dl 3.4 g/dl - 5.0 g/dl October 17, 2024 11:10:00 AM UTC (TECH: [employer]) 2336-6 Globulin [Mass/volum e] in Serum N 3.6 October 17, 2024 11:10:00 AM [place] (TECH: [employer]) 1759-0 Albumin/Globulin [Ma ss Ratio] in Serum or Plasma N 0.9 0.7 - 2 2024 11:10:00 AM UTC (TECH: [employer]) 08508-0 Calcium [Mass/volume ] in Serum or Plasma N 9.3 mg/dl 8.5 mg/dl - 10.5 mg/dl October 17, 2024 11:10:00 AM [facility] ([employer]: [employer]) 1975-2 Bilirubin.total [Mass/volume] in Serum or Plasma N 0.80 mg/dL 0.10 mg/dL - 1.00 mg/dL October 17, 2024 11:10:00 AM [facility] ([employer]: [employer]) 1920-8 Aspartate aminotransferase [Enzymatic activity/volume] in Serum or Plasma H 55 U/L 0 U/L - 37 U/L October 17, 2024 11:10:00 AM [facility] ([employer]: [employer]) 1742-6 Alanine aminotransfe rase [Enzymatic activity/volume] in Serum or Plasma H 96 U/L 0 U/L - 65 U/L October 17, 2024 11:10:00 AM [facility] ([employer]: [employer]) 6768-6 Alkaline phosphatase [Enzymatic activity/volume] in Serum or Plasma N 61 U/L 46 U/L - 116 U/L October 17, 2024 11:10:00 AM [facility] ([employer]: [employer]) LABORATORY NARRATIVE RESULTS Information is not available RADIOLOGY RESULTS Information is not available PATHOLOGY NARRATIVE RESULTS ORDER 1800: PATHOLOGY SPECIM EN (LOINC: 94234-0) ORDER DATE: October 16, 2024 3:52:00 PM [place] Specimen Source: PATH Specimen Type: Refer to path ology laboratory PERFORMING LAB: [address] [id number] Final Result Date: October 18, 2024 5:02:00 PM UT TEST: PATHOLOGY SPECIMEN MICROBIOLOGY RESULTS No Micro Labs/Results Exist for Patient BLOOD ADMIN RESULTS Information is not available TREATMENT PLAN DISCHARGE MEDICATIONS Status RXNORM Medication Dose Route Frequency Dates Comments U pdated By Continued 798954 DULoxetine HCl Oral Capsule Delayed Release Particles 30 MG 1 TAB ORAL ONCE DAILY Prescribe d: October 17, 2024 1:06:22 PM [place] [id number] on October 17, 2024 1:06:22 PM [facility] Continued 504760 Omeprazole Oral Capsule Delayed Release 20 MG 20 MG ORAL ONCE DAILY Prescribe d: October 17, 2024 1:06:22 PM [facility] [id number] on October 17, 2024 1:06:22 PM [facility] Continued 984072 Vitamin D3 Oral Capsule 50 MCG (1999) 1 TAB ORAL ONCE DAILY Prescribe d: October 17, 2024 1:06:22 PM [facility] [id number] on October 17, 2024 1:06:22 PM [facility] Continued 226480 hydroCHLOROt hiazide Oral Tablet 12.5 MG 1 TAB ORAL ONCE DAILY Prescribe d: October 17, 2024 1:06:22 PM [facility] [id number] on October 17, 2024 1:06:22 PM [facility] Continued 523108 Iron (Ferrous Sulfate) Oral Tablet 325 (65 Fe) MG 1 TAB ORAL TWICE A DAY Prescribe d: October 17, 2024 1:06:22 PM [facility] [id number] on October 17, 2024 1:06:22 PM [facility] Continued 901356 Pregabalin Oral Capsule 50 MG 1 TAB ORAL TWICE A DAY Prescribe d: October 17, 2024 1:06:22 PM [facility] [id number] on October 17, 2024 1:06:22 PM [facility] Continued 5369262 Nurtec Oral Tablet Disintegrati ng 75 MG 1 TAB SUBLINGUAL NEEDED Prescribe d: October 17, 2024 1:06:22 PM [facility] [id number] on October 17, 2024 1:06:22 PM [facility] PATIENT OPEN ORDERS Code System Description Frequency Occurrences Priority Start Date Ordering Physician Updated By Patient open order informati on is not available. SCHEDULED PROCEDURES Code System Description Status Scheduled Date Upd ated By Patient scheduled procedure information is not available. MEDICATIONS HOME MEDICATIONS Status RXNORM [facility] Medication Dose Route Frequency Dates Comments Reported By Updated By Active 96950 40462 1 Vitamin D3 Oral Capsule 50 MCG (1999 UT) 1.0 TAB ORAL DAILY Last Dose: 2024 12:00: 00 PM [facility] PATIENT [id number] on October 16, 2024 12:53:20 PM [facility] Active 40222 97116 2 Iron (Ferrous Sulfate) Oral Tablet 325 (65 Fe) MG 1.0 TAB ORAL BID Last Dose: 2024 12:00: 00 PM [facility] PATIENT [id number] on October 16, 2024 12:52:45 PM [facility] Active 923031 80804 46798 1 hydroCHLOROt hiazide Oral Tablet 12.5 MG 1.0 TAB ORAL DAILY Last Dose: 2024 12:00: 00 PM [facility] PATIENT [id number] on October 16, 2024 12:52:35 PM [facility] Active 360554 17713 44202 5 DULoxetine HCl Oral Capsule Delayed Release Particles 30 MG 1.0 TAB ORAL DAILY Last Dose: 2024 12:00: 00 PM [facility] PATIENT [id number] on October 16, 2024 12:52:25 PM UT Active 0112065 01954 87992 2 Nurtec Oral Tablet Disintegrati ng 75 MG 1.0 TAB SUBLIN GUAL PRN Last Dose: 2024 12:00: 00 PM [facility] PATIENT [id number] on October 17, 2024 1:05:14 PM UT Active 582455 83541 19460 0 Pregabalin Oral Capsule 50 MG 1.0 TAB ORAL BID Last Dose: 2024 12:00: 00 PM [facility] PATIENT [id number] on October 16, 2024 12:53:11 PM [facility] DISCHARGE MEDICATIONS Status RXNORM [facility] Medication Dose Route Frequency Dates Comments Physician Updated By Continue d 575117 2763 8011 005 DULoxetine HCl Oral Capsule Delayed Release Particles 30 MG 1.0 TAB ORAL ONCE DAILY Prescr ibed: 2024 1:06:2 2 PM [facility] FITO MANZO [id number] on October 17, 2024 1:06:22 PM UTC Continue d 540819 6483 5011 832 Omeprazole Oral Capsule Delayed Release 20 MG 20.0 MG ORAL ONCE DAILY Prescr ibed: 2024 1:06:2 2 PM [facility] FITO MANZO [id number] on October 17, 2024 1:06:22 PM UTC Continue d 910001 5101 2017 621 Vitamin D3 Oral Capsule 50 MCG (1999 UT) 1.0 TAB ORAL ONCE DAILY Prescr ibed: 2024 1:06:2 2 PM [facility] FITO MANZO [id number] on October 17, 2024 1:06:22 PM UT Continue d 071931 9036 8282 011 hydroCHLORO thiazide Oral Tablet 12.5 MG 1.0 TAB ORAL ONCE DAILY Prescr ibed: 2024 1:06:2 2 PM [place] FITO MANZO [id number] on October 17, 2024 1:06:22 PM UTC Continue d 819714 8072 4004 252 Iron (Ferrous Sulfate) Oral Tablet 325 (65 Fe) MG 1.0 TAB ORAL TWICE A DAY Prescr ibed: 2024 1:06:2 2 PM UTC PILMilton William ANAIS [id number] on October 17, 2024 1:06:22 PM UTC Continue d 700806 4053 8029 290 Pregabalin Oral Capsule 50 MG 1.0 TAB ORAL TWICE A DAY Prescr ibed: 2024 1:06:2 2 PM UTC PILMiltno William ANAIS [id number] on October 17, 2024 1:06:22 PM UTC Continue d 2522340 7261 8300 002 Nurtec Oral Tablet Disintegrat ing 75 MG 1.0 TAB SUBLIN GUAL NEEDED Prescr ibed: 2024 1:06:2 2 PM UTC PILMilton William ANAIS [id number] on October 17, 2024 1:06:22 PM [place] INPATIENT MEDICATIONS Status RXNORM NDC Medication Dose Route Frequency Rat e Quantity Dates Comments Physician Updated By Kaleb inued 946623 7453 8011 704 LACTATED RINGERS SOLN 1000. 0 ML INTRAV ENOUS ONE TIME ADMINISTRA TION (UNSCHEDUL ED) 150.0 ML/HR Start: 2024 7:33:0 0 PM UTC End: 2024 5:08:1 6 PM UT OBIE HANEY SSTCLAIR on October 16, 2024 5:08:00 PM UTC Discont inued 8640428 0014 3914 025 ceFAZolin (ANCEF) 3 GM SOLR 3.0 GM INTRAV ENOUS ONE TIME ADMINISTRA TION (UNSCHEDUL ED) 200.0 ML/HR Start: 2024 7:33:0 0 PM UTC End: 2024 12:36: 21 PM UTC OBIE HANEY [id number] on October 16, 2024 12:36:00 PM UTC Discont inued 2733026 6279 9710 167 sodium chloride 0.9% SOLN 100.0 ML INTRAV ENOUS ONE TIME ADMINISTRA TION (UNSCHEDUL ED) 200.0 ML/HR Start: 2024 7:33:0 0 PM UTC End: 2024 12:36: 21 PM UTC OBIE EDWARD LYNDON [id number] on October 16, 2024 12:36:00 PM UTC Discont inued 390121 4862 8092 355 pantoprazol e (PROTONIX) 40 MG SOLR 40.0 MG INTRAV ENOUS ONE TIME ADMINISTRA TION (UNSCHEDUL ED) Start: 2024 7:33:0 0 PM UTC End: 2024 12:36: 21 PM UTC OBIE EDWARD LYNDON [id number] on October 16, 2024 12:36:00 PM UTC Discont inued 612811 [id number] 5854 9173 782 SCOPOLAMINE 1 MG/3DAYS PT72 1.0 MG TOPICA L ONE TIME ADMINISTRA TION (UNSCHEDUL ED) Start: 2024 7:33:0 0 PM UTC End: 2024 12:36: 21 PM UTC OBIE EDWARD LYNDON [id number] on October 16, 2024 12:36:00 PM UTC Discont inued 632920 5802 3081 210 simethicone (MYLICON) 80 MG CHEW 80.0 MG ORAL ONE TIME ADMINISTRA TION (UNSCHEDUL ED) Start: 2024 7:33:0 0 PM UTC End: 2024 12:36: 22 PM UTC OBIE EDWARD LYNDON [id number] on October 16, 2024 12:36:00 PM UTC Discont inued 073113 1356 5128 023 LOVENOX 40 MG/0.4 ML SOLN 40.0 MG SUBCUT ANEOUS ONE TIME ADMINISTRA TION (UNSCHEDUL ED) Start: 2024 7:33:0 0 PM UTC End: 2024 12:36: 20 PM UTC OBIE EDWARD LYNDON [id number] on October 16, 2024 12:36:00 PM UTC Discont inued 9907 3618 331 acetaminoph en (TYLENOL) 500 MG TABS 1000. 0 MG ORAL ONE TIME ADMINISTRA TION (UNSCHEDUL ED) Start: 2024 7:33:0 0 PM UTC End: 2024 12:36: 22 PM UTC OBIE HANEY [id number] on October 16, 2024 12:36:00 PM UTC Discont inued 901515 8738 3716 601 celeCOXIB (CeleBREX) 200 MG CAPS 400.0 MG ORAL ONE TIME ADMINISTRA TION (UNSCHEDUL ED) Start: Februa 2024 7:33:0 0 PM UTC End: Februa 2024 12:36: 22 PM UTC OBIE HANEY [id number] on October 16, 2024 12:36:00 PM UTC Discont inued 730116 0713 8011 704 LACTATED RINGERS SOLN 1000. 0 ML INTRAV ENOUS ONE TIME ADMINISTRA TION (UNSCHEDUL ED) 25.0 ML/HR Start: Februa 2024 1:55:0 0 PM UTC End: ua 2024 12:36: 22 PM UTC STACI Murdock [id number] on October 16, 2024 12:36:00 PM UTC Discont inued 289367 4978 8011 704 LACTATED RINGERS SOLN 1000. 0 ML INTRAV ENOUS ONE TIME ONLY (PACU) 25.0 ML/HR Start: ua 2024 1:55:0 0 PM UTC End: ua 2024 5:08:1 4 PM UTC STACI Murdock SSTCLAIR on October 16, 2024 5:08:00 PM UTC Discont inued 4981522 0040 9117 630 meperidine (DEMEROL) 25 MG/ML SOLN 12.5 MG INTRAV ENOUS NEEDED (PACU) Start: ua 2024 1:55:0 0 PM UTC End: Februa 2024 5:08:2 0 PM UTC STACI Murdock SSTCLAIR on October 16, 2024 5:08:00 PM UTC Discont inued 5590364 0040 9117 630 meperidine (DEMEROL) 25 MG/ML SOLN 25.0 MG INTRAV ENOUS NEEDED (PACU) Start: ua 2024 1:55:0 0 PM UTC End: Februa 2024 5:08:1 8 PM UTC STACI Murdock SSTCLAIR on October 16, 2024 5:08:00 PM UTC Discont inued 0467862 6332 3080 811 fentaNYL (SUBLIMAZE) 50 MCG/ML SOSY 25.0 MCG INTRAV ENOUS EVERY 5 MINUTES NEEDED (PACU) Start: ua 2024 1:55:0 0 PM UTC End: Februa 2024 5:08:1 0 PM UTC STACI Murdock SSTCLAIR on October 16, 2024 5:08:00 PM UTC Discont inued 8441619 6332 3080 811 fentaNYL (SUBLIMAZE) 50 MCG/ML SOSY 50.0 MCG INTRAV ENOUS EVERY 5 MINUTES NEEDED (PACU) Start: ua 2024 1:55:0 0 PM UTC End: Februa 2024 5:08:4 4 PM UTC STACI Murdock SSTCLAIR on October 16, 2024 5:08:00 PM UTC Discont inued 3969209 5575 9426 401 HYDROmorpho ne (DILAUDID) 0.5 MG/0.5ML SOLN 0.5 MG INTRAV ENOUS EVERY 10 MINUTES NEEDED (PACU) Start: 2024 1:55:0 0 PM UTC End: ua 2024 5:08:1 2 PM UTC STACI Murdock SSTCLAIR on October 16, 2024 5:08:00 PM UTC Discont inued 8035692 5854 9128 331 HYDROmorpho ne (DILAUDID) 1 MG/ML SOLN 1.0 MG INTRAV ENOUS EVERY 10 MINUTES NEEDED (PACU) Start: ua 2024 1:55:0 0 PM UTC End: ua 2024 5:08:1 1 PM UTC STACI Murdock SSTCLAIR on October 16, 2024 5:08:00 PM UTC Discont inued 7946886 4226 8016 250 PERCOCET 5-325 MG TABS 1.0 TAB ORAL ONE TIME ADMINISTRA TION (UNSCHEDUL ED) Start: 2024 1:55:0 0 PM UTC End: ua 2024 5:08:2 8 PM UTC STACI Murdock SSTCLAIR on October 16, 2024 5:08:00 PM UTC Discont inued 8170277 2741 8012 599 PERCOCET 5-325 MG TABS 2.0 TAB ORAL ONE TIME ADMINISTRA TION (UNSCHEDUL ED) Start: Februa 2024 1:55:0 0 PM UTC End: Februa 2024 5:08:2 7 PM UTC STACI Murdock SSTCLAIR on October 16, 2024 5:08:00 PM UTC Discont inued 4557359 6921 5613 000 ondansetron (ZOFRAN) INJ 4 MG/2 ML SOLN 4.0 MG INTRAV ENOUS NEEDED (PACU) Start: Februa 2024 1:55:0 0 PM UTC End: Februa 2024 5:08:2 5 PM UTC STACI Murdock SSTCLAIR on October 16, 2024 5:08:00 PM UTC Discont inued 9184191 0051 7970 201 droperidol (INAPSINE) 2.5 MG/ML SOLN 0.625 MG INTRAV ENOUS NEEDED (PACU) Start: Februa 2024 1:55:0 0 PM UTC End: Februa 2024 5:08:4 3 PM UTC STACI Murdock SSTCLAIR on October 16, 2024 5:08:00 PM UTC Discont inued 1786168 0051 7970 201 droperidol (INAPSINE) 2.5 MG/ML SOLN 1.25 MG INTRAV ENOUS NEEDED (PACU) Start: Februa 2024 1:55:0 0 PM UTC End: Februa 2024 5:08:4 1 PM UTC STACI Murdock SSTCLAIR on October 16, 2024 5:08:00 PM UTC Discont inued 7925092 9299 3041 112 midazolam (VERSED) 2 MG/2 ML SOLN 1.0 MG INTRAV ENOUS EVERY FIVE MINUTES NEEDED Start: Februa 2024 1:55:0 0 PM UTC End: Februa 2024 5:08:2 3 PM UTC STACI Murdock SSTCLAIR on October 16, 2024 5:08:00 PM UTC Discont inued 5811788 1907 3041 112 midazolam (VERSED) 2 MG/2 ML SOLN 2.0 MG INTRAV ENOUS NEEDED (PACU) Start: 2024 1:55:0 0 PM UTC End: 2024 5:08:2 2 PM UTC STACI Murdock SSTCLAIR on October 16, 2024 5:08:00 PM UTC Discont inued 058751 9828 1092 825 promethazin e (PHENERGAN) 25 MG/ML SOLN 12.5 MG INTRAV ENOUS NEEDED (PACU) Start: 2024 1:55:0 0 PM UTC End: 2024 5:08:3 6 PM UTC STACI Murdock SSTCLAIR on October 16, 2024 5:08:00 PM UTC Discont inued XXXX XXX0 011 promethazin e (PHENERGAN) 12.5 MG GEL 12.5 MG TOPICA L NEEDED (PACU) Start: 2024 1:55:0 0 PM UTC End: 2024 5:08:3 4 PM UTC STACI Murdock SSTCLAIR on October 16, 2024 5:08:00 PM UTC Discont inued 4326 4979 102 indocyanine green (IC GREEN) 25 MG SOLR 25.0 MG INTRAV ENOUS ONE TIME ONLY (SCHEDULED DOSE) Start: 2024 12:34: 00 PM UTC End: 2024 12:34: 00 PM UTC KELLEY Chen INTERFAC ED on October 16, 2024 12:35:00 PM UTC Discont inued 713567 2846 5038 281 DULoxetine (CYMBALTA) 30 MG CPEP 30.0 MG ORAL ONCE DAILY Start: 2024 1:06:2 2 PM UTC End: 2024 1:06:2 2 PM UTC AL William [id number] on October 17, 2024 5:58:00 PM UTC Discont inued [id number] 501 hydroCHLORO thiazide 12.5 MG TABS 12.5 MG ORAL ONCE DAILY Start: 2024 1:06:2 2 PM UTC End: 2024 1:06:2 2 PM UTC AL LACY M [id number] on October 17, 2024 5:58:00 PM UTC Discont inued [id number] 8011 704 LACTATED RINGERS SOLN 1000. 0 ML INTRAV ENOUS CONT 100.0 ML/HR Start: 2024 12:36: 00 PM UTC End: 2024 1:06:2 2 PM UTC AL LACY M [id number] on October 17, 2024 5:58:00 PM UTC Discont inued [id number] 546 sodium chloride 0.9% FLUSH 10 ML SOLN 10.0 ML INTRAV ENOUS NEEDED Start: 2024 12:36: 00 PM UTC End: 2024 1:06:2 2 PM UTC AL LACY M [id number] on October 17, 2024 5:58:00 PM UTC Discont inued [id number] [id number] 331 HYDROmorpho ne (DILAUDID) 1 MG/ML SOLN 1.0 MG INTRAV ENOUS EVERY TWO HOURS NEEDED Start: 2024 12:36: 00 PM UTC End: 2024 5:30:0 0 PM UTC AL LACY M [id number] on October 18, 2024 5:25:00 AM UTC Discont inued [id number] 061 acetaminoph en (TYLENOL) 500 MG TABS 500.0 MG ORAL EVERY SIX HOURS Start: 2024 9:00:0 0 PM UTC End: 2024 1:06:2 2 PM UTC AL LACY M [id number] on October 17, 2024 5:58:00 PM UTC Discont inued [id number] 2010 210 gabapentin (NEURONTIN) 300 MG CAPS 300.0 MG ORAL THREE TIMES A DAY Start: 2024 7:00:0 0 PM UTC End: 2024 1:06:2 2 PM UTC AL LACY M [id number] on October 17, 2024 5:58:00 PM UTC Discont inued [id number] 9147 3716 601 celeCOXIB (CeleBREX) 200 MG CAPS 200.0 MG ORAL TWICE A DAY Start: 2024 2:00:0 0 AM UTC End: 2024 1:06:2 2 PM UTC AL LACY M [id number] on October 17, 2024 5:58:00 PM UTC Discont inued [id number] [id number] 000 ondansetron (ZOFRAN) INJ 4 MG/2 ML SOLN 4.0 MG INTRAV ENOUS EVERY SIX HOURS NEEDED Start: 2024 12:36: 00 PM UTC End: 2024 1:06:2 2 PM UTC AL LACY M [id number] on October 17, 2024 5:58:00 PM UTC Discont inued [id number] 5022 442 prochlorper azine (COMPAZINE) 10 MG/2 ML SOLN 5.0 MG INTRAV ENOUS EVERY FOUR HOURS NEEDED Start: 2024 12:36: 00 PM UTC End: 2024 1:06:2 2 PM UTC AL LACY M [id number] on October 17, 2024 5:58:00 PM UTC Discont inued [id number] 0221 1092 825 promethazin e (PHENERGAN) 25 MG/ML SOLN 12.5 MG INTRAV ENOUS EVERY FOUR HOURS NEEDED Start: 2024 12:36: 00 PM UTC End: 2024 1:06:2 2 PM UTC AL LACY M [id number] on October 17, 2024 5:58:00 PM UTC Discont inued [id number] 4681 3016 501 dexamethaso ne (DECADRON) 4 MG/ML SOLN 4.0 MG INTRAV ENOUS EVERY SIX HOURS Start: 2024 10:00: 00 PM UTC End: 2024 1:06:2 2 PM UTC AL LACY M [id number] on October 18, 2024 5:25:00 AM UTC Discont inued [id number] 3854 023 LOVENOX 40 MG/0.4 ML SOLN 40.0 MG SUBCUT ANEOUS EVERY TWELVE HOURS Start: 2024 1:06:2 2 PM UTC End: 2024 1:06:2 2 PM UTC AL LACY M [id number] on October 17, 2024 5:58:00 PM UTC Discont inued [id number] 9326 7950 101 albuterol (VENTOLIN) 2.5 MG/3 ML NEBU 2.5 MG INHALE D EVERY SIX HOURS NEEDED (RESPIRATO RY) Start: 2024 12:36: 00 PM UTC End: 2024 1:06:2 2 PM UTC AL LACY M [id number] on October 17, 2024 5:58:00 PM UTC Discont inued [id number] 1159 8092 355 pantoprazol e (PROTONIX) 40 MG SOLR 40.0 MG INTRAV ENOUS EVERY 24 HOURS Start: 2024 12:30: 00 PM UTC End: 2024 1:06:2 2 PM UTC AL LACY M [id number] on October 17, 2024 5:58:00 PM UTC Discont inued [id number] 7591 3066 401 diphenhydrA MINE (BENADRYL) 50 MG/ML SOLN 25.0 MG INTRAV ENOUS EVERY FOUR HOURS NEEDED Start: 2024 12:36: 00 PM UTC End: 2024 1:06:2 2 PM UTC AL LACY M [id number] on October 17, 2024 5:58:00 PM UTC Discont inued [id number] 1294 7003 125 cyanocobala min (VITAMIN B-12) 1000 MCG/ML SOLN 1000. 0 MCG INTRAM USCULA R ONE TIME ADMINISTRA TION (UNSCHEDUL ED) Start: 2024 12:36: 00 PM UTC End: 2024 1:06:2 2 PM UTC AL LACY M [id number] on October 17, 2024 1:36:00 PM UTC Discont inued [id number] 8365 3061 401 hydrALAZINE (APRESOLINE ) 20 MG/ML SOLN 10.0 MG INTRAV ENOUS EVERY SIX HOURS NEEDED Start: 2024 12:36: 00 PM UTC End: 2024 1:06:2 2 PM UTC AL LACY M [id number] on October 17, 2024 5:58:00 PM UTC Discont inued XXXX XXX0 014 PATIENT SPECIFIC MEDICATION 1 EA MISC 1.0 DOS ORAL NEEDED Start: 2024 12:36: 00 PM UTC End: 2024 1:06:2 2 PM UTC AL LACY M [id number] on October 17, 2024 5:58:00 PM UTC Discont inued [id number] 4097 3913 925 ceFAZolin (ANCEF) 2 GM SOLR 2.0 GM INTRAV ENOUS EVERY EIGHT HOURS 100.0 ML/HR Start: 2024 10:00: 00 PM UTC End: 2024 1:06:2 2 PM UTC AL LACY M [id number] on October 18, 2024 5:25:00 AM UTC Discont inued [id number] 9287 8055 311 sodium chloride 0.9% MB+ SOLN 50.0 ML INTRAV ENOUS EVERY EIGHT HOURS 100.0 ML/HR Start: 2024 10:00: 00 PM UTC End: 2024 1:06:2 2 PM UTC AL LACY M [id number] on October 18, 2024 5:25:00 AM UTC Discont inued [id number] 4626 9909 332 PACU - fentaNYL (SUBLIMAZE) 100 MCG/2ML SOLN 100.0 MCG INTRAV ENOUS ONE TIME ONLY (SCHEDULED DOSE) Start: 2024 2:59:0 0 PM UTC End: 2024 2:59:0 0 PM UTC KELLEY Chen INTERFAC ED on October 16, 2024 3:01:00 PM UTC Discont inued [id number] 5515 0016 830 bupivacaine PF 0.25% SOLN 30.0 ML EPIDUR AL ONE TIME ONLY (SCHEDULED DOSE) Start: 2024 3:01:0 0 PM UTC End: 2024 3:01:0 0 PM UTC BENSON DEANNA F INTERFAC ED on October 16, 2024 3:02:00 PM UTC Discont inued [id number] 1732 3017 905 buprenorphi ne (BUPRENEX) 0.3 MG/ML SOLN 0.3 MG INTRAV ENOUS ONE TIME ONLY (SCHEDULED DOSE) Start: 2024 3:01:0 0 PM UTC End: 2024 3:01:0 0 PM UTC BENSON DEANNA F INTERFAC ED on October 16, 2024 3:02:00 PM UTC Discont inued [id number] 9846 6542 515 sugammadex (BRIDION) 500 MG/5ML SOLN 500.0 MG INTRAV ENOUS ONE TIME ONLY (SCHEDULED DOSE) Start: 2024 3:01:0 0 PM UTC End: 2024 3:01:0 0 PM UTC BENSON DEANNA F INTERFAC ED on October 16, 2024 3:02:00 PM UTC Discont inued [id number] 2733 9069 901 PROPOFOL 200 MG/20ML EMUL 400.0 MG INTRAV ENOUS ONE TIME ONLY (SCHEDULED DOSE) 16.667 MG/HR Start: 2024 8:46:0 0 PM UTC End: 2024 8:49:0 4 PM UTC BENSON DEANNA F [id number] on October 16, 2024 8:49:00 PM UTC Discont inued [id number] 3667 5615 000 ONDANSETRON HCL 4 MG/2ML SOLN 4.0 MG INTRAV ENOUS ONE TIME ONLY (SCHEDULED DOSE) 0.167 MG/HR Start: 2024 8:46:0 0 PM UTC End: 2024 8:49:0 4 PM UTC BENSON DEANNA F [id number] on October 16, 2024 8:49:00 PM UTC Discont inued [id number] 6085 3042 610 ROCURONIUM BROMIDE 100 MG/10ML 100.0 MG INTRAV ENOUS ONE TIME ONLY (SCHEDULED DOSE) 4.167 MG/HR Start: 2024 8:46:0 0 PM UTC End: 2024 8:49:0 4 PM UTC KELLEY HUERTA F [id number] on October 16, 2024 8:49:00 PM UTC Discont inued [id number] 2529 9622 902 QUELICIN 20 MG/ML SOLN 200.0 MG INTRAV ENOUS ONE TIME ONLY (SCHEDULED DOSE) 8.333 MG/HR Start: 2024 8:46:0 0 PM UTC End: 2024 8:49:0 4 PM UTC KELLEY HUERTA F [id number] on October 16, 2024 8:49:00 PM UTC Discont inued [id number] 5733 4230 202 LIDOCAINE HCL 2 % SOLN 2.0 ML ONE TIME ONLY (SCHEDULED DOSE) 0.083 ML/HR Start: 2024 8:47:0 0 PM UTC End: 2024 8:49:0 4 PM UTC KELLEY HUERTA F [id number] on October 16, 2024 8:49:00 PM UTC Discont inued [id number] 0788 5623 105 ceFAZolin (ANCEF) 2 GM SOLR 2.0 GM INTRAV ENOUS ONE TIME ONLY (SCHEDULED DOSE) Start: 2024 10:51: 00 PM UTC End: 2024 10:51: 00 PM UTC KELLEY DEANNA F INTERFAC ED on October 16, 2024 10:53:00 PM UTC Discont inued [id number] 0262 5623 105 ceFAZolin (ANCEF) 2 GM SOLR 2.0 GM INTRAV ENOUS ONE TIME ONLY (SCHEDULED DOSE) Start: 2024 5:20:0 0 AM UTC End: 2024 5:20:0 0 AM UTC KELLEY DEANNA F INTERFAC ED on October 17, 2024 5:21:00 AM UTC SOCIAL HISTORY SOCIAL HISTORY SNOMED-CT Social History Element Description Effective Dates Offered Cessation Comment UpdatedBy [id number] Historical Tobacco smoking status Never Smoked [id number] on September 11, 2024 8:11:26 PM UTC SOCIAL HISTORY - Gender Sex: Female SOCIAL HISTORY - Status : status i nformation is not available Intention in Next Year: intention information is not available SOCIAL HISTORY - Sexual Behavior Sexual Orientation Gender Identity SNOMED-CT Description SNO MED -CT Description Activity Level No of Partners Partner Type UpdatedBy Information is not available VITAL SIGNS PATIENT VITAL SIGNS This section displays the mo st recent value for each vital sign as of October 19, 2024 3:19:14 PM [place] Loinc Code [place] [address]-4 Blood glucose monitors October 16, 2024 12:50:00 PM UTC 107.0 mg/dL [id number] on October 16, 2024 12:51:08 PM UT 8302-2 Body height October 16 12:50:24 PM UTC 170.18 cm (67.0 in) [id number] on October 16, 2024 12:50:[place] [address]-3 Body mass index (BMI ) [Ratio] October 16, 2024 12:50:24 PM UTC 47.684 kg/m2 [id number] on October 16, 2024 12:50:24 PM UT 3140-1 Body Surface Area Derived From Formula October 16, 2024 12:50:24 PM UTC 2.4174 m2 [id number] on October 16, 2024 12:50:[place] [address]-5 Body weight Measured September 12:50:24 PM UTC 138.1 kg (304.0 lb) [id number] on October 16, 2024 12:50:24 PM UT 8462-4 Diastolic blood pressure October 17, 2024 1:10:00 PM UTC 84.0 mm[Hg] [id number] on October 17, 2024 1:46:53 PM UT 8867-4 Heart rate October 17 1:10:00 PM UTC 57 /min [id number] on October 17, 2024 1:46:53 PM UT 8478-0 Mean blood pressure October 17, 2024 4:56:00 AM UTC 66.0 mm[Hg] [id number] on October 17, 2024 4:57:[place] [address]-2 Oxygen saturation in Arterial blood by Pulse oximetry October 17, 2024 1:10:00 PM UT 98.0 % [id number] on October 17, 2024 1:46:53 PM UT 9279-1 Respiratory rate October 17 1:10:00 PM UTC 18 /min [id number] on October 17, 2024 1:46:53 PM UTC 8480-6 Systolic blood pressure October 17, 2024 1:10:00 PM UTC 132.0 mm[Hg] [id number] on October 17, 2024 1:46:53 PM UTC 34309-1 Vital capacity [Volume] Respiratory system by Spirometry October 17, 2024 9:21:00 AM UTC 1500.0 ml [id number] on October 17, 2024 9:23:53 AM UTC PEDIATRIC GROWTH CHART - VITAL SIGNS This section displays Head C ircumference Percentile, Weight for Length Percentile and BMI Percentile Loinc Code Pediatric Measure Age (Months) Result Updat ed By No Pediatric Growth Chart Pe rcentile Information Available. PROCEDURES PATIENT PROCEDURES CODE SYSTEM DESCRIPTION STATUS PERFORMED DATE UPD ATED BY [id number] SNOMED-CT Laparoscopic duo denal switch completed October 16, 2024 5:00:00 AM UTC [id number] on October 16, 2024 4:03:45 PM UTC PROCEDURE NOTE Note Title [facility] - Post Procedur e Note Date Of Service October 16, 2024 4: 03:30 PM UTC Created By [id number] on October 16, 2024 4:03:30 PM UTC Signed By [id number] on October 16, 2024 4:04:56 PM UTC Procedure / Surgery Performed Laparoscopic duodenal switch Robotic assisted Performed by KELLEY MOYA Pre-Procedure Diagnosis Morbid obesity Post- Procedure Diagnosis Morbid obesity Procedure Description / Findings NDICATIONS: This is a 23-year-old female , who has a history of a morbid obesity. They have elizabeth with morbid obesity for 7 years. They are current BMI is 49.8 with a height of 67 inand a weight of 318 lb. There coexisting comorbidities are hypertension. They are currently a nonsmoker, no current drug abuse and no current alcohol abuse. And age appropriate psychological consultation was completed. Nutritional evaluation, therapy and counseling have been completed. Including micronutrient measurements and treatment of insufficiencies and deficiencies. Initial comprehensive diet and exercise patterns with steps to modify problem eating behaviors have been completed. They currently have support from their primary care provider. The patient has undergone extensive Education and made aware of the process and the follow-up required and this has been documented. Preoperative evaluation and medical clearances have been obtained. Cardiac clearance was performed by Dr. Robles and low risk was assigned. Glycemic control evaluation has been completed. Pulmonary evaluation has been completed. PSG evaluations/sleep apnea evaluation has been completed. After all the appropriate steps were followed they were scheduled for Robotic-assisted duodenal switch. OPERATION: After all risks, complications, alternatives were explained to the patient, agreed upon. Written informed consent was obtained for the patient. The patient was properly identified in the preoperative holding area. The patient was taken to the operating room and placed in supine position for the induction of general endotracheal anesthesia. The patient was prepped and draped in a sterile fashion over the abdominal region. An 11-blade scalpel was used to make a small incision near the umbilicus and an Optiview trocar was used to gain direct access into the intraabdominal cavity. CO2 insufflation was initiated creating pneumoperitoneum. Then, the laparoscope was placed in the abdomen and accessory trocars were placed in a standard fashion under direct visualization. A Kelsey retractor was placed in the subxiphoid position and used to retract the liver in a cephalad direction and attached to the [employer] Building [employer] Superintendent at the bedside. The robot was brought in over the left side of the patient and docked in a standard fashion. I left the operative field and manned the operative console. I 1st looked down in the pelvis and identified the cecum and ileocecal junction. I grasped the terminal ileum and carefully measured 300 cm from the terminal ileum to determine the common channel. Once I reached this point 2-0 Vicryl was used to tack the loop of ileum to the gastrocolic ligament in 2 places to make sure that it would not twist and remain oriented appropriately. At this point Utilizing table motion, the patient was then placed in reverse Trendelenburg and slightly rotated to the right. A 40 albanian ViSiGi decompression tube was advanced along the lesser curve of the stomach down towards the pylorus stopping approximately 3-4 cm away from the pylorus and placed on suction and locked by Anesthesia. There was no gross evidence of hiatal hernia. The short vessels from the gastroepiploic swore divided with the vessel sealer mobilizing the greater curvature the stomach. I continued this all the way up to the angle of Hiss. Next, the short vessels on the greater curvature of the stomach were divided with a vessel sealer to enter the lesser sac. This was continued up toward the angle of His and carried down towards the pylorus. The remaining short gastrics and the phrenogastric vessels were divided as well to completely mobilize the posterior aspect of the upper portion of the stomach and expose the left cari. Next I focused my attention down towards the duodenum to complete the mobilization in preparation for the duodenal division. I divided the remaining short vessels coming off the gastroepiploic to allow the gastroepiploic vessel to fall down I continued dividing the attachments from the inferior edge of the pylorus and proximal duodenum off of the pancreas until I reached the area flush with the gastroduodenal artery coming down. I then could see the short duodenal branches coming off the lateral aspect of the GDA. Retracting the duodenum laterally in a right angle position allowed me to easily get in behind the short duodenal branches with short bursts of energy to seal and dividing these with the vessel sealer taking me up to the avascular window behind the super duodenal branches. I then confirmed my window by dissecting to the left and never posterior to prevent any iatrogenic injury to vital structures. Once I confirmed my window open I was able to proceed towards the sleeve. At this point I focused back to completing the sleeve I made sure that the visigi tube was in the appropriate location and there was no angulation at the angularis incisor up. The robotic SureForm stapler was used to create the sleeve with a combination of blue and white loads based on tissue assessment. There was adequate width at the area of the angularis incisura and the staple line was nice and straight and there was no kinking, torsing, or twisting of the staple line. After the specimen was set over to the side, a 2-0 absorbable V-Loc was used to imbricate the upper portion of the staple line and then used to buttress the omentum to this portion as well as remaining portion of the staple line to keep the sleeve nice and straight utilizing the omentum that had previously been removed. Now that the sleeve had been completed a white load sure Form was brought in placed in the window across the duodenum at least 3+ cm distal to the pylorus. It was closed I looked posteriorly to make sure I had not incorporated any posterior structures and inverted only and I had not. The stapler was fired transecting the duodenum distal to the pylorus. At this point I then reflected the cut proximal duodenum up sealed and divided the super duodenal branches and carefully worked up to the base of the right gastric artery once this was confirmed it was sealed and divided maintaining collateral flow to the entire specimen from the left gastric. This allowed the sleeve to straighten completely down towards the lower abdomen. Next I cut the 2 Vicryl sutures that was holding the loop of ileum up to the gastrocolic ligament and easily brought this up to meet the distal aspect of the transected duodenum. 3-0 6 in absorbable V lock was used to create a 2 layered hand-sewn anastomosis for the duodenoileostomy. The 1st layer incorporated the staple line of the duodenum to the posterior aspect of the loop of ileum I then utilized scissors and cautery and opened up the duodenum approximately 2 cm in size as well as at the apex of the loop of the ileum to become my anastomosis. Next the 3-0 absorbable V lock was used in a running fashion to approximate full-thickness posterior layer next another 3-0 absorbable V lock was used to reapproximate the anterior full-thickness layer and it was tied to the posterior suture. Finally the last 2-0 absorbable V lock was used in a seromuscular fashion to imbricate the anterior portion of the anastomosis and it was tied to the original 1st stitch completing the 2 layered hand-sewn anastomosis. And anti obstruction stitch was placed with the 2-0 Ethibond suturing the distal antrum to the biliopancreatic limb tacking it up to avoid food going into the wrong limb. At this point the tube was advanced per anesthesia with it off of suction down to just above the pylorus and previously mixed ICG with saline was injected via the tube for a total of 100 cc to rule out a leak at the anastomosis. Utilizing a Ray-Jim and checking the Ray-Jim afterwards to see if any dye had extravasated there was no evidence of anastomotic leak and the tube was placed on suction to remove the dye. The ViSiGi tube was removed at this time. A 3 g applicator of Jean Claude was placed along the staple line with good saturation. No evidence of bleed through. I scrubbed back in the operative field. The Kelsey retractor was removed. The stomach was removed from the stapler trocar site and that the fascial defect was closed with an 0 PDS utilizing a Rico-Kameron. A 4-0 Monocryl and Dermabond was used to close the skin at the remaining incisions. All sponge counts, needle counts, instrument counts were correct and patient was taken to recovery room in stable condition per Anesthesia. Anesthesia Type General anesthesia Specimens Portion of stomach Estimated Blood Loss Minimal Complications None Electronically signed by KELLEY MOYA on [facility] Problems Concern Status Health Concern problem infor mation not available. Smoking Status Status Years Used Consumed packs p er day Health Concern smoking histo ry information not available. Family History Concern Status Health Concern family histor y information not available. ENCOUNTERS ENCOUNTER INFORMATION Reason for Visit ROBOTIC DUODENAL SWI [facility] Admission October 16, 2024 11:34:[address] [id number] Discharge October 17, 2024 5:30:00 PM [facility] DISCHARGED TO HOME OR SELF CARE ENCOUNTER DIAGNOSES Notes information is not zohreh ilable. Code System Diagnosis Onset Date Diagnosis information is not available. ABSTRACT DIAGNOSES Code System Diagnosis Updated By E66.01 ICD10 MORBID (SEVERE) OBESITY DUE TO EXCESS CALORIES [id number] on October 19, 2024 3:17:53 PM [facility] E66.01 ICD10 MORBID (SEVERE) OBESITY DUE TO EXCESS CALORIES [id number] on October 19, 2024 3:17:53 PM [facility] Z68.42 ICD10 BODY MASS INDEX [BMI] 45.0-49.9, ADULT [id number] on October 19, 2024 3:17:53 PM [facility] I10 ICD10 ESSENTIAL (PRIMARY) HYPERTEN DUNIA [id number] on October 19, 2024 3:17:53 PM [facility] M79.7 ICD10 FIBROMYALGIA [id number] on 2024 3:17:53 PM [facility] G43.909 ICD10 MIGRAINE, UNSPEC IFIED, NOT INTRACTABLE, WITHOUT STATUS MIGRAINOSUS [id number] on October 19, 2024 3:17:53 PM [facility] F32.A ICD10 DEPRESSION, UNSPECIFIED [id number] on October 19, 2024 3:17:53 PM [facility] F41.9 ICD10 ANXIETY DISORDER, UNSPECIFIE D [id number] on October 19, 2024 3:17:53 PM [facility] R73.03 ICD10 PREDIABETES [id number] on 2024 3:17:53 PM [place] Z90.49 ICD10 ACQUIRED ABSENCE OF OTHER SPECIFIED PARTS OF DIGESTIVE TRACT [id number] on October 19, 2024 3:17:53 PM UT Z79.899 ICD10 OTHER HULL MOLDER (CURRENT) DRUG THERAPY [id number] on October 19, 2024 3:17:53 PM [place] CARE TEAM Care Senior Sales Associate Role DEANNA BENSON Admitting DEANNA BENSON Primary Attending KARLOS CHESTER Primary Care DEANNA BENSON Referring MARY JANE MAST Surgeon DEANNA BENSON Surgeon [facility] DISCHARGE INSTRUCTION DISCHARGE INSTRUCTION Encounter [id number] Admit Date October 16, 2024 11 :34:00 AM UT Discharge Date October 17, 2024 5: 30:00 PM [facility] PATIENT EDUCATION SUMMARY Patient/Visit Information: Patient Name: MOHINI MERRITT Diag: Attending Caregiver: KELLEY Chen Discharge Instruction Sheets Provided: BEFAST-Stroke Warning Signs COVID-19 CDC-EN Discharge Information Fall Prevention in Hospitals and in the Home [facility] Pain and Responsible Opioid (Pain Medication) Management [facility] - Bariatric Surgery [facility] - Stage I Diet KYNECT- HELP Medication Side Effects Suicide - Managing your Feelings Patient Instructions: Followup Appointments/Instructions: CONSULTATION NOTE CONSULTATION NOTE Note Title Nutrition Consult/Fo llow-up Progress Note Date Of Service October 17, 2024 1: 30:42 PM UT Created By [id number] on October 17, 2024 1:30:42 PM UTC Signed By [id number] on October 17, 2024 1:31:16 PM UT Nutritional Comments: RDN rounded on pt this AM s/p TORI-S. Pt reports doing well. Tolerating PO liquids. Ambulating often. Provided patient with stage 1 clear liquid diet and vitamins to start taking or purchase including: MVI, Fe, Ca, vitB complex, and dry Lali and D. Provided handout reminder about post-op class and f/u on Wednesday10/24/2024; was informed that class is 1 hour followed by visit with provider. Advised pt to continue clear liquids through POD#7 then begin full liquids on POD#8 continuing through POD#14. Encouraged to start tracking calories and protein with an dot or pen/paper. Advised to get 85 g protein/day and 64 oz. caffeine-free, un-carbonated beverages. RDN addressed pt questions. Verbally agreeable to recommendations. RDN available PRN for assistance. Electronically signed by BETTY Meza RD on 0831 CARE TEAM CARE interpreter for the deaf Role on Team Status Start Date End Date Update d By KEZIA HINTON CRNA Surgeon normal October 16, 2024 2:18:00 PM UTC October 17, 2024 5:30:00 PM UTC [id number] on October 19, 2024 3:18:35 PM UTC KELLEY MOYA Surgeon normal October 16, 2024 11:34:00 AM UTC October 17, 2024 5:30:00 PM UTC [id number] on October 19, 2024 3:18:35 PM UTC NEMO EVERETT PCP normal October 02 4:47:25 PM UTC October 17, 2024 5:30:00 PM UTC [id number] on October 19, 2024 3:18:35 PM UT KELLEY MOYA Referring normal October 02, 2024 4:47:25 PM UTC October 17, 2024 5:30:00 PM UTC [id number] on October 19, 2024 3:18:35 PM UT KELLEY MOYA Attending normal October 02, 2024 4:47:25 PM UTC October 17, 2024 5:30:00 PM UTC [id number] on October 19, 2024 3:18:35 PM UT KELLEY MOYA Admitting normal October 02, 2024 4:47:25 PM UTC October 17, 2024 5:30:00 PM UTC [id number] on October 19, 2024 3:18:35 PM UTC
--- OUTSIDE RECORDS SUMMARY | 2024-12-14 11:02 | XMS_ITS | Continuity of Care Document ---
Author Organization [place] - [facility] Address [address] [place] [address] Care Team Providers Care Cover Marker Name Role Phone KARLOS CHESTER Primary Care Provider Assessment Encounter Date Assessment Date Assessment LastModified by Organization Details LastModified Time 11/17/2024 11/17/2024 A total of 10 minutes was spent with the pt today. ??? Recommendations: 1. Try going to the dollar tree to find cheaper items to try 2. Add MVI to a spoonful of applesauce to get down 3. Try doing 1-2 bites of food every 1-2 hours to help reduce nausea and to get in calories and protein 4. Try to track foods that you are able to keep down 5. F/U as needed ??? Pt doing well overall. Addressed concerns today. Pt was reassured at today's visit. Pt verbally agreed to recommendations and goals. Denied further questions/concerns . Pt reports that social studies teacher did reach out to her but there are not any other options available in her area. Provided pt with some ensure clear samples because she can keep those down. ??? RDN will monitor weight loss, labs, meds, and lifestyle modifications. Will f/up as scheduled or PRN. [email or web address] Not available 11/17/2024 09:58:18 Plan of Treatment Reminders Order Date Submit Date Provider Last Modified By Organization Details Last Modified Time Details Appointments SURGERY 15 2024 11:45A M KALI HAMILTON MD Not available Not available Not available Lab None recorded . Referral None recorded . Procedures None recorded . Surgeries None recorded . Imaging None recorded . Medication Orders None recorded . Patient TargetsNo targets recorded. Patient InstructionsNo instructions recorded. Reason for Referral None Reported. Results Created Date Observation Date Name Description Value Unit Range Abnormal Flag Note LastModifiedBy Organization Detail LastModifiedTime 11/11/19 25 11/10/2024 RF, upper gastr ointe yadira l tract , w/ air, w/ contr ast PO No observ ation record ed. [facility] [address], [place], [address], 11/14/2024 15:11:14 11/11/19 25 11/10/2024 RF, upper gastr ointe yadira l tract , w/ air, w/ contr ast PO No observ ation record ed. [facility] (Scheduling) [address], [place], [address], 11/14/2024 15:11:15 11/11/19 25 11/10/2024 RF, upper gastr ointe yadira l tract , w/ air, w/ contr ast PO No observ ation record ed. [email or web address] [facility] (Scheduling) [address], [place], [address], 11/10/2024 14:58:54 Result Notes None recorded. Problems Name Problem SNOMED Code Status Onset Date Resolution Date Notes Provider Name and Address Organization Details Recorded Time Essential hypertensi on 77551033 Active 2023 RON Azar [address], [place], [address] , [place] [facility] & [place] 12:30:28 Obesity 262025764 Active [address], [place], [address] , [place] [facility] & [place] 12:30:50 Disorder of function of stomach 042877235 Active [address], [place], [address] , [place] [facility] & [place] 11/12/202 4 12:30:50 Impaired glucose tolerance 6413485 Active 2023 RON Azar [address], [place], [address] , [place] [facility] - [place] & [place] 4 12:31:02 Postoperat nicholas pain 813113250 Active 2024 RON Azar [address], [place], [address] , [place] [facility] - [place] & [place] 5 08:04:37 Contact dermatitis 20227201 Active 2024 RON Azar [address], [place], [address] , [place] [facility] - [place] & [place] 5 10:32:01 Nausea 635341985 Active 2024 RON Azar [address], [place], [address] , [place] [facility] [place] & [place] 5 09:06:20 Nausea and vomiting 22916637 Active 2024 RON Azar [address], [place], [address] , [place] [facility] [place] & [place] 5 10:19:41 Bilious vomiting 00406511 Active 2024 RON Azar [address], [place], [address] , [place] [facility] [place] & [place] 5 09:06:37 Mild dehydratio n 6999170368163 Active 2024 RON Azar [address], [place], [address] , [place] [facility] [place] & [place] 5 09:09:44 Intentiona l weight loss 347381226 Active 2024 RON Azar [address], [place], [address] , [place] [facility] [place] & [place] 5 09:06:38 Body mass index 40+ - severely obese 846133125 Active [address], [place], [address] , [place] [facility] [place] & [place] 5 09:07:05 Severe obesity 8392647205157 [address], [place], [address] , [place] [facility] & [place] 5 09:07:24 Nutritiona l deficiency state 81044217 Active [address], [place], [address] , [place] [facility] & [place] 5 10:04:26 Epigastric pain 93583793 Active [address], [place], [address] , [place] [facility] & [place] 5 10:16:35 Paresthesi a of upper limb 66235476 Active [address], [place], [address] , [place] [facility] & [place] 4 15:38:11 Problem Notes None recorded. Procedures Surgical History Date Name Laterality Status Provider Name and Address Organization Details Recorded Time 10/16/19 25 procedure on duodenum completed Parris GUHTRIE - [facility] & [place] 11/09/2024 08:47:34 12/09/19 24 EMG/ Nerve Conduction Study completed DO [address], [place], [address], [place] [facility] & [place] 12/09/2023 15:38:[address] completed [address], [place], [address], [place] [facility] & [place] 07/04/2024 12:57:53 extraction of wisdom tooth completed Parris Martinez [facility] & [place] 07/03/2024 15:07:44 Tonsillectomy completed Parris Torres [place] - [facility] & [place] 07/03/2024 15:07:52 procedure on ganglion cyst completed Stephanie Castro [place] - [facility] & [place] 10/04/2024 07:53:08 Imaging Results None recorded. Procedure Notes None recorded. Medical Equipment None Reported. Allergies No known drug allergies Medications Name Sig Start Date Stop Date Status Note LastModified by Organization Details LastModified Time amantadine HCl 100 mg tablet 07/04 completed Not Available Not Available Not Available amoxicillin 500 mg capsule TAKE 1 CAPSULE BY MOUTH TWICE DAILY FOR 7 DAYS 07/04 completed Not Available Not Available Not Available sucralfate 1 gram tablet TAKE 1 TABLET BY MOUTH 4 TIMES DAILY active Not Available Not Available No t Available ondansetron 8 mg disintegrat ing tablet DISSOLVE 1 TABLET IN MOUTH TWICE DAILY active Not Available Not Available No t Available thiamine HCl (vitamin B1) 100 mg/mL injection solution 200mg IM today in office 2024 active Not Available Not Available Not Avai lable Compazine 5 mg tablet Take 1 tablet 3 times a day by oral route. 2024 active Not Available Not Available Not Avai lable cyanocobala min (vit B-12) 1,000 mcg/mL injection solution 1ml IM in office today 2024 active Not Available Not Available Not Avai lable ferrous sulfate 325 mg (65 mg iron) tablet Take 1 tablet twice a day by oral route. active Not Available Not Available No t Available hydrochloro thiazide 12.5 mg capsule Take 1 capsule every day by oral route. 08/01 completed Not Available Not Available Not Available omeprazole 20 mg capsule,del ayed release TAKE 1 CAPSULE BY MOUTH ONCE DAILY active Not Available Not Available No t Available celecoxib 100 mg capsule TAKE 1 CAPSULE BY MOUTH TWICE DAILY FOR 7 DAYS 11/09 completed Not Available Not Available Not Available bromphenira mine-pseudo ephedrine-D M 2 mg-30 mg-10 mg/5 mL oral syrup TAKE 10 ML BY MOUTH EVERY 4 TO 6 HOURS NEEDED FOR COUGH 07/04 completed Not Available Not Available Not Available ondansetron 4 mg disintegrat ing tablet 12/01 completed Not Available Not Available Not Available oxycodone 5 mg tablet TAKE 1 TABLET BY MOUTH EVERY 6 HOURS NEEDED FOR SEVERE PAIN 07/04 completed Not Available Not Available Not Available nitrofurant oin monohydrate /macrocryst als 100 mg capsule 12/01 completed Not Available Not Available Not Available duloxetine 30 mg capsule,del ayed release active Not Available Not Available Not Available pregabalin 25 mg capsule TAKE 1 CAPSULE BY MOUTH TWICE DAILY 07/04 completed Not Available Not Available Not Available pregabalin 50 mg capsule TAKE 1 CAPSULE BY MOUTH TWICE DAILY 10/04 completed Not Available Not Available Not Available pregabalin 75 mg capsule active Not Available Not Available Not Available Vitamin D 50mcg qd 07/04 completed Not Available Not Available Not Available Vitamin D3 active Not Available Not Av ailable Not Available multivitami n active Not Available Not Available Not Available hydrochloro thiazide 12.5 mg tablet active Not Available Not Available Not Available cholecalcif pretty (vitamin D3) 1,250 mcg (50,000 unit) capsule 10/04 completed Not Available Not Available Not Available cholecalcif pretty (vitamin D3) 50 mcg (2,000 unit) capsule TAKE 1 CAPSULE BY MOUTH ONCE DAILY 07/04 completed Not Available Not Available Not Available Nurtec ODT 75 mg disintegrat ing tablet active Not Available Not Available N ot Available Vitals Date Recorded Body height Body mass index (BMI) Body weight Heart rate Body temperature Systolic blood pressure Diastolic blood pressure Provider Name and Address Organization Details Last Updated DateTime 5 170.18 cm 42.1 kg/m2 669304. 55 g 126 /min 97.7 [degF] 151 mm[Hg] 103 mm[Hg] Jessica Mcnally [facility] & [place] 5 09:02:32 Social History Question Answer Notes LastModified by Organizat ion Details LastModified Time Tobacco Smoking Status Never Smoker Parris neely, [facility] & [place] 07/03/2024 15:12:10 What Is Your Level Of Alcohol Consumption? Occasional [email or web address] Information not available 07/03/2024 What Is Your Level Of Caffeine Consumption? Occasional [email or web address] Information not available 07/04/2024 Do You Use Any Illicit Or Recreational Drugs? No [email or web address] Information not available 07/03/2024 Sex: Female Functional Status None recorded. Mental Status None recorded. Family History Relationship Description Onset Age of this Age Resolved Age Notes LastModified by Organization Details LastModified Time Father Hypertensive disorder [email or web address] Not available 06/2024 15:12:25 Father Hypercholest [email or web address] Not available 06/2024 15:12:51 Mother Hypertensive disorder [email or web address] Not available 06/2024 15:12:25 Mother Hypercholest erolemia [email or web address] Not available 06/2024 15:12:51 Mother Asthma [email or web address] Not availabl e 07/04/2024 13:49:15 Mother Chronic obstructive pulmonary disease [email or web address] Not available 06/2024 15:13:21 Maternal Grandmother Hypertensive disorder [email or web address] Not available 06/2024 15:12:25 Maternal Grandmother Chronic obstructive pulmonary disease [email or web address] Not available 06/2024 15:13:21 Maternal Grandfather Malignant tumor of lung [email or web address] Not available 06/23 13:49:15 Brother Asthma [email or web address] Not availab le 07/04/2024 13:49:15 Sister Asthma [email or web address] Not availabl e 07/04/2024 13:49:15 Medical History Condition Response Coronary Artery Disease N Other Y Depression Y Anxiety Disorder Y Headaches Y Kidney Disease N Bleeding Disorder N Pulmonary Embolism N Deep Vein Thrombosis N Liver Disease N Diabetes Y Reflux/GERD Y Heart Disease N Hypertension Y Gynecological HistoryNo gynecological history recorded. Obstetrics History GPAL:G 0 P 0 0 0 0 Past Encounters Encounter ID Performer Location Encounter Start Date Encounter Closed Date Diagnosis/Indication Diagnosis SNOMED-CT Code Diagnosis ICD10 Code Diagnosis Note [id number] [facility] [address] [place] [address] 10/24/2024 07:55:40 10/24/2024 10:33:45 History of gastrectomy 326759943 Z90.3 Encouraged patient to continue focus on intake of adequate protein and hydration. Advised minimum 70 g of protein and 800 calories. Patient is to continue incentive spirometer for another 5-7 days Encouraged ambulation Patient is to start bariatric approved vitamin Follow up 3 weeks Contact dermatitis 31344 004 L25.9 Likely from surgical glue. Patient advised to keep area clean. She may apply Benadryl cream or calamine lotion. Advised she take Zyrtec q.a.m. and Benadryl q.p.m.. Advised she avoid scratching these areas. She is report any worsening symptoms. [id number] RON Azar [facility] [address] [place] [address] 11/09/2024 08:34:40 11/09/2024 14:27:44 Nausea and vomiting 38050507 R11.2 Long discussion today regarding adherence to advise diet kami n. Would advise patient is spend the next 3-4 days on stage I and slowly progress into stage II IIIDiscuss ed very small amounts 2 oz at a time. We will have dietitian meet with patient again today for dietary education. Patient is to use Zofran to help with p.o. intake.Carmen thorne is advised to increase omeprazole to b.i.d.. We will add Carafate q.i.d.. Patient is instructed to crush these pills and makes slurryWe will order UGI to further evaluate - pt request [facility].Alexander bowen is advised to call or go to the ED for any acute worsening of abdominal symptoms.Alexander bowen is to keep scheduled follow-up 11/17/2024 Mild dehydration 1000356 119 108 E86.0 Patient will have to a L normal saline IV rehydratio n today in office. History of gastrectomy 510196130 Z90.3 s/p TORI-s 10/16/24 [id number] RON Azar [facility] [address] [place] [address] 11/17/2024 08:51:00 11/17/2024 09:41:49 Disorder of function of stomach 949859225 K31.89 Long discussion with patient regarding fatigue and nausea specifical ly related to caloric intake. I will refill Zofran. Patient advised she is to use this medication to facilitate p.o. intake. Advised 4 oz p.o. each hour. 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 Will have patient return to clinic 2 weeks. She is to call for any worsening symptoms Essential hypertension 62257439 I10 Stop monitor and discussed with PCP Impaired g lucose tolerance 1277911 R73.03 History of gastrectomy 827390344 Z90.3 We discussed diet and the importance of adequate protein. Encouraged patient to continue focus on adequate protein/ca lories/hyd ration. Advised minimum 800 to a 1000 calories and 70 g of protein.Ron benjamin is to see dietitian today for typical 1 month postoperat nicholas dietary support.Co ntinue PPI and vitamins.E ncouraged routine exercise. Advised exercising such that maintain target HR x 20 min 3dy/wkFoll ow-up 2wk Patient is status post bariatric surgery and at increased risk for vitamin deficienci es and malnutriti on. Bariatric vitamin panel ordered today. Patient will be contacted to correct any vitamin deficienci es. At [facility] ed risk of nutritional deficit 879580961 Z91.89 Severe obesity 798425661 1 [address]104 E66.813 E66.01 Z68.[id number] [facility] [address] [place] [address] 11/17/2024 09:37:00 11/17/2024 10:29:59 Diet education 59666771 Z71.3 Health Concerns Section Related Observation LastModified by Organization Detai ls LastModified Time None Recorded Concern Status LastModified by Organization Details LastModified Time None Recorded Payers Encounter Date Sequence Insurance Name Policy Number Policy Sanchez Covered Member ID Sanchez Member ID Guarantor Name 11/17/2024 1 [facility] ([place]AC[place] - [place]MO) MARY Christina [id number] [place] Christina Notes Date Note Type Note Provider Name and Address Organization Details Recorded Time 11/17/2024 text/html Patient presents today for one-month follow-up s/p Tori-s 10/16/24Se has been ill cough and body aches - daughter tested positive for flu. PT reports was struggling with nausea - she states she has been doing better but this am had dry heaves. She has been taking zofran. Reports 40-50g/dy protein intake and hydration- near 50oz. Daily Calories - not tracking but suspects less than 500. She reports fatigue. She reports concerns to return to work. 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 She states she has no money for different vitamins.Heartburn /gastroesophageal reflux: she is taking omeprazole.She reports constipation. Pt Denies : abdominal pain, prandial issues Nausea, Vomiting, bladder issuesTotal Weight loss 35lbElevated BP today - pt has not been taking HCTZ. She has not seen PCP since surgery. @11/09/24 Patient presents today as sick visit. She is s/p Tori-s 10/16/24Patient states she went to [facility] ED last night for nausea and vomiting. She states they did very little for her. She was given a prescription for Zofran. She tells me no fluids or imaging was done.She states she has been vomiting for 3-4 days. She does admit to eating grilled chicken in blood egg at the end of last week. This would have been week to postop and is ahead of advised diet progression schedule. Patient now feels like she is severely dehydrated. She is reporting dry mucosa and decreased urination. She is struggling to keep anything down including water. @ 1wk Patient is doing well. Tolerating PO intake w/out issue. Getting 40-50g/dy protein. Pt reports good hydration. -64 oz daily. She reports good urine output. She has had bowel movement and is having flatus. Taking recommended vitamins and PPI.Pt Denies : abdominal pain, prandial issues Nausea, Vomiting, bowel or bladder issuesShe does report erythema and itching at each incision site likely related to contact dermatitis from glue. She has been taking oral Benadryl and using Benadryl cream. She has removed glue from each incision.Path benign RON Azar [address], [place], [address], [facility] - [place] - [place] & [place] 11/17/2024 09:31:49 11/17/2024 text/html RDN met w/ pt fo r 1month f/up s/p TORI-Melany . Pt weight at MD Consult: 301.4#Current Weight: 268.5#Total Weight Change: -32.9# Notes on weight: desires continued weight loss at this time Signs/SymptomsN/V/ C/D: nausea, constipation and dry heaves - taking zofranwas previously having vomiting - came in last week for IV fluids Meds and labs reviewed.Notes - taking MVI with struggles with swallowing - has no money to purchase other vitamins Physical activity: none - has fatigue Tracking meal intakes: not tracking Est. daily kcal intake: unsure but probably < 500 Est. daily protein intake: 40-50 Est. daily fluid intake: 50 oz Meal Frequency/Pattern: tomato soup, any type of soup, potato soupdid like the ensure clear Drinks: water Foods Not Tolerated: chocolate flavor and cheese Additional notes/concerns: doesn't qualify for food stamps ISRAEL HERNÁNDEZ, RD [address], [place], [address], [place] [facility] - [place] & [place] 11/17/2024 09:58:38 OBGyn Episode No OBEpisode recorded.
--- OUTSIDE RECORDS SUMMARY | 2024-12-14 11:02 | XMS_ITS | Continuity of Care Document ---
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 Plan of Treatment Reminders Order Date Submit Date Provider Last Modified By Organization Details Last Modified Time Details Appointments SURGERY 15 2024 11:45A M KALI HAMILTON MD Not available Not available Not available Lab folate, serum 2024 025 [facility], [address], [address], [place], [address], 11/24/2024 18:36:58 prealbumi n, serum 2024 025 [facility], [address], [address], [place], [address], 11/24/2024 18:37:01 thiamine, QN, blood 2024 025 [facility], [address], [address], [place], [address], 11/24/2024 18:37:00 methylmal jeffrey, QN, serum or plasma 2024 025 [facility], [address], [address], [place], [address], 11/24/2024 18:37:00 CBC w/ auto diff 2024 025 [facility], [address], [address], [place], [address], 11/24/2024 18:36:56 CMP, serum or plasma 2024 025 [facility], [address], [address], [place], [address], 11/24/2024 18:36:57 iron + TIBC + ferritin, serum 2024 025 [facility], [address], [address], [place], [address], 11/24/2024 18:36:55 vitamin D, 25-hydrox y, total, serum 2024 025 [facility], [address], [address], [place], [address], 11/24/2024 18:36:59 vitamin E, serum 2024 025 [facility], [address], [address], [place], [address], 11/24/2024 18:36:57 vitamin A (retinol) , serum 2024 025 [facility], [address], [address], [place], [address], 11/24/2024 18:36:59 TSH + free T4, serum 2024 025 [facility], [address], [address], [place], [address], 11/24/2024 18:36:55 Referral None recorded. Procedures None recorded. Surgeries None recorded. Imaging None recorded. Medication Orders ondansetr on 8 mg disintegr ating tablet 2024 025 [facility], [address], [place], [address], 11/17/2024 09:24:21 Patient TargetsNo targets recorded. Patient InstructionsNo instructions recorded. Reason for Referral None Reported. Results Created Date Observation Date Name Description Value Unit Range Abnormal Flag Note LastModifiedBy Organization Detail LastModifiedTime 11/11/19 25 11/10/2024 RF, upper gastr ointe yadira l tract , w/ air, w/ contr ast PO No observ ation record ed. [facility] [address], [place], [address], 11/14/2024 15:11:14 11/11/19 25 11/10/2024 RF, upper gastr ointe yadira l tract , w/ air, w/ contr ast PO No observ ation record ed. [facility] (Scheduling) [address], [place], [address], 11/14/2024 15:11:15 11/11/19 25 11/10/2024 RF, upper gastr ointe yadira l tract , w/ air, w/ contr ast PO No observ ation record ed. [email or web address] [facility] (Scheduling) [address], [place], [address], 11/10/2024 14:58:54 Result Notes None recorded. Problems Name Problem SNOMED Code Status Onset Date Resolution Date Notes Provider Name and Address Organization Details Recorded Time Essential hypertensi on 63451491 Active [address], [place], [address] , [place] - [facility] - [place] & [place] 4 12:30:28 Obesity 703559895 Active [address], [place], [address] , [place] [facility] [place] & [place] 4 12:30:50 Disorder of function of stomach 137151812 Active 2023 [address], [place], [address] , [place] [facility] [place] & [place] 4 12:30:50 Impaired glucose tolerance 7278411 Active 2023 [address], [place], [address] , [place] [facility] [place] & [place] 4 12:31:02 Postoperat nicholas pain 813441616 Active 2024 [address] [facility], [place], [address] , [place] [facility] [place] & [place] 5 08:04:37 Contact dermatitis 65074252 Active 2024 R[address] Az[address] [facility], [place], [address] , [place] [facility] [place] & [place] 5 10:32:01 Nausea 913204893 Active 2024 [address] [facility], [place], [address] , [place] [facility] [place] & [place] 5 09:06:20 Nausea and vomiting 85939922 Active 2024 [address] [facility], [place], [address] , [place] [facility] [place] & [place] 5 10:19:41 Bilious vomiting 27231393 Active 2024 [address] [facility], [place], [address] , [place] [facility] [place] & [place] 5 09:06:37 Mild dehydratio n 7486351125285 Active 2024 [address] [facility], [place], [address] , [place] [facility] [place] & [place] 5 09:09:44 Intentiona l weight loss 633367519 Active [address], [place], [address] , [place] & [place] 5 09:06:38 Body mass index 40+ - severely obese 676003281 Active 2024 [address], [place], [address] , [place] [facility] & [place] 5 09:07:05 Severe obesity 1119770481077 4 Active [address], [place], [address] , [place] [facility] & [place] 5 09:07:24 Nutritiona l deficiency state 16040731 Active 2024 [address], [place], [address] , [place] [facility] & [place] 5 10:04:26 Epigastric pain 62942321 Active 2024 [address], [place], [address] , [place] [facility] & [place] 5 10:16:35 Paresthesi a of upper limb 81613186 Active 2023 Raquel Guillen DO [address] , [place], [address] , [place] & [place] 4 15:38:11 Problem Notes None recorded. Procedures Surgical History Date Name Laterality Status Provider Name and Address Organization Details Recorded Time 10/16/19 25 procedure on duodenum completed Parris Torres [place] & [place] 11/09/2024 08:47:34 12/09/19 24 EMG/ Nerve Conduction Study completed Raquel Guillen DO [address], [place], [address], [place] [facility] 12/09/2023 15:38:[address], [place], [address], [facility] & [place] 07/04/2024 12:57:53 extraction of wisdom tooth completed Parris Torres [place] [facility] & [place] 07/03/2024 15:07:44 Tonsillectomy completed Parris GUTHRIE [facility] & [place] 07/03/2024 15:07:52 procedure on ganglion cyst completed Stephanie Castro [facility] & [place] 10/04/2024 07:53:08 Imaging Results None recorded. Procedure [...] Updated DateTime 5 170.18 cm 42.1 kg/m2 835106. 55 g 126 /min 97.7 [degF] 151 mm[Hg] 103 mm[Hg] Jessica Mcnally [facility] & [place] 5 09:02:32 Social History Question Answer Notes LastModified by Organizat ion Details LastModified Time Tobacco Smoking Status Never Smoker Parris neely, [facility] & [place] 07/03/2024 15:12:10 What Is Your Level Of Alcohol Consumption? Occasional [email or web address] Information not available 07/03/2024 What Is Your Level Of Caffeine Consumption? Occasional [email or web address] Information not available 07/04/2024 Do You Use Any Illicit Or Recreational Drugs? No [email or web address] Information not available 07/03/2024 Sex: Female Functional Status None recorded. Mental Status None recorded. Family History Relationship Description Onset Age of this Age Resolved Age Notes LastModified by Organization Details LastModified Time Father Hypertensive disorder [email or web address] Not available 06/2024 15:12:25 Father Hypercholest erolemia [email or web address] Not available 06/2024 15:12:51 Mother Hypertensive disorder [email or web address] Not available 06/2024 15:12:25 Mother Hypercholest erolemia [email or web address] Not available 06/2024 15:12:51 Mother Asthma [email or web address] Not availabl e 07/04/2024 13:49:15 Mother Chronic obstructive pulmonary disease [email or web address] Not available 06/2024 15:13:21 Maternal Grandmother Hypertensive disorder [email or web address] Not available 06/2024 15:12:25 Maternal Grandmother Chronic obstructive pulmonary disease [email or web address] Not available 06/2024 15:13:21 Maternal Grandfather Malignant tumor of lung [email or web address] Not available 06/23 13:49:15 Brother Asthma Not availab le 07/04/2024 13:49:15 Sister Asthma [email or web address] Not availabl e 07/04/2024 13:49:15 Medical History Condition Response Diabetes Y Anxiety Disorder Y Coronary Artery Disease N Bleeding Disorder N Other Y Depression Y Reflux/GERD Y Liver Disease N Heart Disease N Pulmonary Embolism N Headaches Y Deep Vein Thrombosis N Hypertension Y Kidney Disease N Gynecological HistoryNo gynecological history recorded. Obstetrics History GPAL:G 0 P 0 0 0 0 Past Encounters Encounter ID Performer Location Encounter Start Date Encounter Closed Date Diagnosis/Indication Diagnosis SNOMED-CT Code Diagnosis ICD10 Code Diagnosis Note [id number] [facility] [address] [facility] [address] [place], [place] [address] 10/24/2024 07:55:40 10/24/2024 10:33:45 History of gastrectomy 456427670 Z90.3 Encouraged patient to continue focus on intake of adequate protein and hydration. Advised minimum 70 g of protein and 800 calories. Patient is to continue incentive spirometer for another 5-7 days Encouraged ambulation Patient is to start bariatric approved vitamin Follow up 3 weeks Contact dermatitis 21649 004 L25.9 Likely from surgical glue. Patient advised to keep area clean. She may apply Benadryl cream or calamine lotion. Advised she take Zyrtec q.a.m. and Benadryl q.p.m.. Advised she avoid scratching these areas. She is report any worsening symptoms. [id number] [facility] [address] [facility] [address] [facility] [place] [address] 11/09/2024 08:34:40 11/09/2024 14:27:44 Nausea and vomiting 44781323 R11.2 Long discussion today regarding adherence to advise diet gloriaio n. Would advise patient is spend the [...] UGI to further evaluate - pt request [facility].Alexander bowen is advised to call or go to the ED for any acute worsening of abdominal symptoms.Alexnader bowen is to keep scheduled follow-up 11/17/2024 Mild dehydration 2253683 119 108 E86.0 Patient will have to a L normal saline IV rehydratio n today in office. History of gastrectomy 837652974 Z90.3 s/p TORI-s 10/16/24 [id number] [facility] n [facility] [address] [facility] [address] [place] [address] 11/17/2024 08:51:00 11/17/2024 09:41:49 Disorder of function of stomach 511504987 K31.89 Long discussion with patient regarding fatigue [...] call for any worsening symptoms Essential hypertension 49770284 I10 Stop monitor and discussed with PCP Impaired g lucose tolerance 2206413 R73.03 History of gastrectomy 799524401 Z90.3 We discussed diet and the importance [...] any vitamin deficienci es. At [facility] ed risk of nutritional deficit 563100257 Z91.89 Severe obesity 959995182 1 9104 E66.813 E66.01 Z68.[id number] [facility] s and Adv Surg [address] [facility] [address] [place] [address] 11/17/2024 09:37:00 11/17/2024 10:29:59 Diet education 89002525 Z71.3 Health Concerns Section Related Observation LastModified by Organization Detai ls LastModified Time None Recorded Concern Status LastModified by Organization Details LastModified Time None Recorded Payers Encounter Date Sequence Insurance Name Policy Number Policy Sanchez Covered Member ID Sanchez Member ID Guarantor Name 11/17/2024 1 [facility] ([facility] [facility]PLAC[facility] - HMO) MARY Christina [id number] Penelope Christina Notes Date Note Type Note Provider [...] to return to work. 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 [...] incision.Path benign [facility] [address], [place], [address], [facility] & [place] 11/17/2024 09:31:49 11/17/2024 text/html RDN met w/ pt fo r 1month f/up s/p TORI-S . Pt weight at MD Consult: 301.4#Current [...] notes/concerns: doesn't qualify for food stamps [address], [place], [address], [facility] & [place] 11/17/2024 09:58:38 OBGyn Episode No OBEpisode recorded.
--- OUTSIDE RECORDS SUMMARY | 2024-12-14 11:02 | XMS_ITS | Data Portability ---
Author Organization [facility] Address [address] [place] [id number] Care Team Providers Care Filtering Machine Tender Name Role Phone KARLOS CHESTER Primary Care Provider Assessment Encounter Date Assessment Date Assessment LastModified by Organization Details LastModified Time 10/24/2024 10/24/2024 The patient is doing well. The patient is instructed to continue their vitamins as directed. They are to continue advancing their diet as directed. They may start exercising but keep lifting less than 25 pounds for 2 more weeks. I will see them back in 3 weeks or one month from surgery. We will order their first set of labs at that time. I summarized the expectations for the upcoming year. We will check labs at their one month visit from surgery, 3 months from surgery as well as at 6, 9, and 12 months from surgery. These labs will be ordered on the day of their appointment. They have the option to come to the appointment fasting and labs can be drawn that day at the hospital. If not, I expect these labs to be drawn within the week of ordering them. If they choose to have them drawn at another institution they are to make sure that the labs are sent to my office. These labs will be reviewed once received and the patient will be called with any significant abnormalities and how they should be addressed. If they would like a copy of their labs they are welcome to request these and we will send a copy to them. If they're labs and vitamin levels are adequate at 12 months then they will need lab checks every 6mth-12mth. They consent to understand this plan and agree to comply. [email or web address] Not available 10/24/2024 07:57:27 11/17/2024 11/17/2024 A total of 10 minutes [...] Denied further questions/concerns . Pt reports that director social welfare did reach out to her but there are not any other options available in her area. Provided pt with some ensure clear samples because she can keep those down. ??? RDN will monitor weight loss, labs, meds, and lifestyle modifications. Will f/up as scheduled or PRN. Not available 11/17/2024 09:58:18 Plan of Treatment Reminders Order Date Submit Date Provider Last Modified By Organization Details Last Modified Time Details Appointments SURGER Y 15 2024 11:45A M KALI RUBI MD Not available Not available Not available Lab magnes ium, serum or plasma 2024 025 [facility], [address] [place] [address], [id number], 12/08/2024 04:11:53 phosph orus, serum or plasma 2024 025 [facility], [address] [place] [address], [id number], 12/08/2024 04:11:53 CBC w/ auto diff 2024 025 [facility], [address], [address], [place], [address], 12/02/2024 03:38:32 CMP, serum or plasma 2024 025 [facility], [address], [address], [place], [address], 12/02/2024 03:38:33 folate , serum 2024 025 [facility], [address], [address], [place], [address], 11/24/2024 18:36:58 prealb umin, serum 2024 025 [facility], [address], [address], [place], [address], 11/24/2024 18:37:01 thiami ne, QN, blood 2024 025 [facility], [address], [address], [place], [address], 11/24/2024 18:37:00 methyl malona te, QN, serum or plasma 2024 025 [facility], [address], [address], [place], [address], 11/24/2024 18:37:00 CBC w/ auto diff 2024 025 [facility], [address], [address], [place], [address], 11/24/2024 18:36:56 CMP, serum or plasma 2024 025 [facility], [address], [address], [place], [address], 11/24/2024 18:36:57 iron + TIBC + ferrit in, serum 2024 025 [facility], [address], [address], [place], [address], 11/24/2024 18:36:55 vitami n D, 25-hyd maida, total, serum 2024 025 [facility], [address], [address], [place], [address], 11/24/2024 18:36:59 vitami n E, serum 2024 025 [facility], [address], [address], [place], [address], 11/24/2024 18:36:57 vitami n A (retin ol), serum 2024 025 [facility], [address], [address], [place], [address], 11/24/2024 18:36:59 TSH + free T4, serum 2024 025 [facility], [address], [address], [place], [address], 11/24/2024 18:36:55 Referral None record ed. Procedures None record ed. Surgeries esopha gogast roduod enosco py (SURG) 2024 025 Kali Rubi MD, [address], [address], [place], [address], 12/01/2024 13:23:56 Imaging RF, upper gastro intest inal tract, w/ air, w/ contra st PO 2024 025 [facility] (Scheduling), [address], [place], [address], 11/10/2024 12:55:13 Medication Orders thiami ne HCl (vitam in B1) 100 mg/mL inject ion soluti on 2024 025 [email or web address] Not available 12/01/2024 10:25:48 cyanoc obalam in (vit B-12) 1,000 mcg/mL inject ion soluti on 2024 025 [email or web address] Not available 12/01/2024 10:24:52 Compaz ine 5 mg tablet 2024 025 [facility], [address], [address], 12/01/2024 10:20:25 ondans etron 8 mg disint egrati ng tablet 2024 025 [facility], [address], [address], 11/17/2024 09:24:21 Carafa te 1 gram tablet 2024 025 [facility], [address], [address], 11/09/2024 09:15:26 Patient TargetsNo targets recorded. Patient InstructionsNo instructions recorded. Reason for Referral None Reported. Results Created Date Observation Date Name Description Value Unit Range Abnormal Flag Note LastModifiedBy Organization Detail LastModifiedTime 10/04/19 25 10/05/2024 CBC WITH DIFFE RENTI AL/PL ATELE T WBC 9.1 x10e3 /uL 3.4-10 .8 normal Not Available [facility] ([facility]) [address] [place], [address], 10/05/2024 06:37:27 10/04/19 25 10/05/2024 CBC WITH DIFFE RENTI AL/PL ATELE T RBC 5.31 x10e6 /uL 3.77-5 .28 above high normal Not Available [facility] ([facility]) [address] [place], [address], 10/05/2024 06:37:27 10/04/19 25 10/05/2024 CBC WITH DIFFE RENTI AL/PL ATELE T hemoglobin 14.5 g/dL 11.1-1 5.9 normal Not Available [facility] ([facility]) [address] [place], [address], 10/05/2024 06:37:27 10/04/19 25 10/05/2024 CBC WITH DIFFE RENTI AL/PL ATELE T hematocrit 44.7 % 34.0-4 6.6 normal Not Available [facility] ([facility]) [address] [place], [address], 10/05/2024 06:37:27 10/04/19 25 10/05/2024 CBC WITH DIFFE RENTI AL/PL ATELE T MCV 84 fL 79-97 normal Not Available [facility] ([facility]) [address] [facility], [place], [address], 10/05/2024 06:37:27 10/04/19 25 10/05/2024 CBC WITH DIFFE RENTI AL/PL ATELE T MCH 27.3 pg 26.6-3 3.0 normal Not Available [facility] ([facility]) [address] [facility], [place], [address], 10/05/2024 06:37:27 10/04/19 25 10/05/2024 CBC WITH DIFFE RENTI AL/PL ATELE T MCHC 32.4 g/dL 31.5-3 5.7 normal Not Available [facility] ([facility]) [address] [place], [address], 10/05/2024 06:37:27 10/04/19 25 10/05/2024 CBC WITH DIFFE RENTI AL/PL ATELE T RDW 13.5 % 11.7-1 5.4 Not Available [facility] ([facility]) [address] [place], [address], 10/05/2024 06:37:27 10/04/19 25 10/05/2024 CBC WITH DIFFE RENTI AL/PL ATELE T platelets 369 x10e3 /uL 150-45 0 normal Not Available [facility] ([facility]) [address] [place], [address], 10/05/2024 06:37:27 10/04/19 25 10/05/2024 CBC WITH DIFFE RENTI AL/PL ATELE T neutrophils 55 % not estab. normal Not Available [facility] ([facility]) [address] [facility], [place], [address], 10/05/2024 06:37:27 10/04/19 25 10/05/2024 CBC WITH DIFFE RENTI AL/PL ATELE T lymphs 39 % not estab. normal Not Available [facility] ([facility]) [address] [facility], [place], [address], 10/05/2024 06:37:27 10/04/19 25 10/05/2024 CBC WITH DIFFE RENTI AL/PL ATELE T monocytes 5 % not estab. normal Not Available [facility] ([facility]) [address] [place], [address], 10/05/2024 06:37:27 10/04/19 25 10/05/2024 CBC WITH DIFFE RENTI AL/PL ATELE T eos 1 % not estab. normal Not Available [facility] ([facility]) [address] [place], [address], 10/05/2024 06:37:27 10/04/19 25 10/05/2024 CBC WITH DIFFE RENTI AL/PL ATELE T basos 0 % not estab. normal Not Available [facility] ([facility]) [address] [facility], [place], [address], 10/05/2024 06:37:27 10/04/19 25 10/05/2024 CBC WITH DIFFE RENTI AL/PL ATELE T immature cells [employer] Not Available [facility] ([facility]) [address] [place], [address], 10/05/2024 06:37:27 10/04/19 25 10/05/2024 CBC WITH DIFFE RENTI AL/PL ATELE T neutrophils (absolute) 5.0 x10e3 /uL 1.4-7. 0 normal Not Available [facility] ([facility]) [address] [place], [address], 10/05/2024 06:37:27 10/04/19 25 10/05/2024 CBC WITH DIFFE RENTI AL/PL ATELE T lymphs (absolute) 3.5 x10e3 /uL 0.7-3. 1 above high normal Not Available [facility] ([facility]) [address] [place], [address], 10/05/2024 06:37:27 10/04/19 25 10/05/2024 CBC WITH DIFFE RENTI AL/PL ATELE T monocytes(ab solute) 0.4 x10e3 /uL 0.1-0. 9 normal Not Available [facility] ([facility]) [address] [place], [address], 10/05/2024 06:37:27 10/04/19 25 10/05/2024 CBC WITH DIFFE RENTI AL/PL ATELE T eos (absolute) 0.1 x10e3 /uL 0.0-0. 4 normal Not Available [facility] ([facility]) [address] [place], [address], 10/05/2024 06:37:27 10/04/19 25 10/05/2024 CBC WITH DIFFE RENTI AL/PL ATELE T baso (absolute) 0.0 x10e3 /uL 0.0-0. 2 normal Not Available [facility] ([facility]) [address] [place], [address], 10/05/2024 06:37:27 10/04/19 25 10/05/2024 CBC WITH DIFFE RENTI AL/PL ATELE T immature granulocytes 0 % not estab. Not Available [facility] ([facility]) [address] [place], [address], 10/05/2024 06:37:27 10/04/19 25 10/05/2024 CBC WITH DIFFE RENTI AL/PL ATELE T immature grans (abs) 0.0 x10e3 /uL 0.0-0. 1 Not Available [facility] ([facility]) [address] [facility], [place], [address], 10/05/2024 06:37:27 10/04/19 25 10/05/2024 CBC WITH DIFFE RENTI AL/PL ATELE T NRBC [employer] Not Available [facility] ([facility]) [address] [facility], [place], [address], 10/05/2024 06:37:27 10/04/19 25 10/05/2024 CBC WITH DIFFE RENTI AL/PL ATELE T hematology comments: [employer] Not Available [facility] ([facility]) [address] [facility], [place], [address], 10/05/2024 06:37:27 10/04/19 25 10/05/2024 COMP. METAB OLIC PANEL (14) glucose 87 mg/dL 70-99 normal Not Available [facility] ([facility]) [address] [place], [address], 10/05/2024 06:37:29 10/04/19 25 10/05/2024 COMP. METAB OLIC PANEL (14) BUN 8 mg/dL 6-20 normal Not Available [facility] ([facility]) [address] [place], [address], 10/05/2024 06:37:29 10/04/19 25 10/05/2024 COMP. METAB OLIC PANEL (14) creatinine 0.65 mg/dL 0.57-1 .00 normal Not Available [facility] ([facility]) [address] [facility], [place], [address], 10/05/2024 06:37:29 10/04/19 25 10/05/2024 COMP. METAB OLIC PANEL (14) eGFR 125 mL/mi n/1.7 3 >59 normal Not Available [facility] ([facility]) [address] [facility] [place], [address], 10/05/2024 06:37:29 10/04/19 25 10/05/2024 COMP. METAB OLIC PANEL (14) BUN/creatini ne ratio 12 9-23 normal Not Available [facility] ([facility]) [address] [facility] [place], [address], 10/05/2024 06:37:29 10/04/19 25 10/05/2024 COMP. METAB OLIC PANEL (14) sodium 140 mmol/ L 134-14 4 normal Not Available [facility] ([facility]) [address] [facility] [place], [address], 10/05/2024 06:37:29 10/04/19 25 10/05/2024 COMP. METAB OLIC PANEL (14) potassium 5.0 mmol/ L 3.5-5. 2 normal Not Available [facility] ([facility]) [address] [facility] [place], [address], 10/05/2024 06:37:29 10/04/19 25 10/05/2024 COMP. METAB OLIC PANEL (14) chloride 100 mmol/ L 96-106 normal Not Available [facility] ([facility]) [address] [facility] [place], [address], 10/05/2024 06:37:29 10/04/19 25 10/05/2024 COMP. METAB OLIC PANEL (14) carbon dioxide, total 23 mmol/ L 20-29 normal Not Available [facility] ([facility]) [address] [facility] [place], [address], 10/05/2024 06:37:29 10/04/19 25 10/05/2024 COMP. METAB OLIC PANEL (14) calcium 10.2 mg/dL 8.7-10 .2 normal Not Available [facility] ([facility]) [address] [facility], [place], [address], 10/05/2024 06:37:29 10/04/19 25 10/05/2024 COMP. METAB OLIC PANEL (14) protein, total 7.7 g/dL 6.0-8. 5 normal Not Available [facility] ([facility]) [address] [place], [address], 10/05/2024 06:37:29 10/04/19 25 10/05/2024 COMP. METAB OLIC PANEL (14) albumin 4.7 g/dL 4.0-5. 0 normal Not Available [facility] ([facility]) [address] [facility] [place], [address], 10/05/2024 06:37:29 10/04/19 25 10/05/2024 COMP. METAB OLIC PANEL (14) globulin, total 3.0 g/dL 1.5-4. 5 Not Available [facility] ([facility]) [address] [place], [address], 10/05/2024 06:37:29 10/04/19 25 10/05/2024 COMP. METAB OLIC PANEL (14) bilirubin, total 0.7 mg/dL 0.0-1. 2 normal Not Available [facility] ([facility]) [address] [facility] [place], [address], 10/05/2024 06:37:29 10/04/19 25 10/05/2024 COMP. METAB OLIC PANEL (14) alkaline phosphatase 94 IU/L 44-121 normal Not Available [facility] ([facility]) [address] [facility] [place], [address], 10/05/2024 06:37:29 10/04/19 25 10/05/2024 COMP. METAB OLIC PANEL (14) AST (SGOT) 18 IU/L 0-40 normal Not Available [facility] ([facility]) [address] [facility], [place], [address], 10/05/2024 06:37:29 10/04/19 25 10/05/2024 COMP. METAB OLIC PANEL (14) ALT (SGPT) 22 IU/L 0-32 normal Not Available [facility] ([facility]) [address] [facility], [place], [address], 10/05/2024 06:37:29 11/18/19 25 11/18/2024 FE+TI BC+FE R iron bind.cap.(TI BC) 310 ug/dL 250-45 0 normal Not Available [facility] ([facility]) [address] [facility], [place], [address], 11/24/2024 18:36:54 11/18/19 25 11/18/2024 FE+TI BC+FE R UIBC 230 ug/dL 131-42 5 normal Not Available [facility] ([facility]) [address] [facility], [place], [address], 11/24/2024 18:36:54 11/18/19 25 11/18/2024 FE+TI BC+FE R iron 80 ug/dL 27-159 normal Not Available [facility] ([facility]) [address] [place], [address], 11/24/2024 18:36:54 11/18/19 25 11/18/2024 FE+TI BC+FE R iron saturation 26 % 15-55 normal Not Available [facility] ([facility]) [address] [place], [address], 11/24/2024 18:36:54 11/18/19 25 11/18/2024 FE+TI BC+FE R ferritin 482 NG/mL 15-150 above high normal Not Available [facility] ([facility]) [address] [place], [address], 11/24/2024 18:36:54 11/18/19 25 11/18/2024 TSH+F REE T4 TSH 2.210 uIU/m L 0.450- 4.500 normal Not Available [facility] ([facility]) [address] [place], [address], 11/24/2024 18:36:55 11/18/1911/18/2024 TSH+F REE T4 T4,free(dire ct) 1.44 NG/dL 0.82-1 .77 normal Not Available [facility] ([facility]) [address] [place], [address], 11/24/2024 18:36:55 11/18/1911/18/2024 CBC WITH DIFFE RENTI AL/PL ATELE T WBC 5.0 x10e3 /uL 3.4-10 .8 normal Not Available [facility] ([facility]) [address] [place], [address], 11/24/2024 18:36:56 11/18/1911/18/2024 CBC WITH DIFFE RENTI AL/PL ATELE T RBC 5.41 x10e6 /uL 3.77-5 .28 above high normal Not Available [facility] ([facility]) [address] [place], [address], 11/24/2024 18:36:56 11/18/1911/18/2024 CBC WITH DIFFE RENTI AL/PL ATELE T hemoglobin 15.3 g/dL 11.1-1 5.9 normal Not Available [facility] ([facility]) [address] [place], [address], 11/24/2024 18:36:56 11/18/1911/18/2024 CBC WITH DIFFE RENTI AL/PL ATELE T hematocrit 45.0 % 34.0-4 6.6 normal Not Available [facility] ([facility]) [address] [place], [address], 11/24/2024 18:36:56 11/18/19 11/18/2024 CBC WITH DIFFE RENTI AL/PL ATELE T MCV 83 fL 79-97 normal Not Available [facility] ([facility]) [address] [place], [address], 11/24/2024 18:36:56 11/18/19 25 11/18/2024 CBC WITH DIFFE RENTI AL/PL ATELE T MCH 28.3 pg 26.6-3 3.0 normal Not Available [facility] ([facility]) [address] [place], [address], 11/24/2024 18:36:56 11/18/1911/18/2024 CBC WITH DIFFE RENTI AL/PL ATELE T MCHC 34.0 g/dL 31.5-3 5.7 normal Not Available [facility] ([facility]) [address] [place], [address], 11/24/2024 18:36:56 11/18/19 25 11/18/2024 CBC WITH DIFFE RENTI AL/PL ATELE T RDW 15.0 % 11.7-1 5.4 Not Available [facility] ([facility]) [address] [place], [address], 11/24/2024 18:36:56 11/18/19 25 11/18/2024 CBC WITH DIFFE RENTI AL/PL ATELE T platelets 168 x10e3 /uL 150-45 0 normal Not Available [facility] ([facility]) [address] [place], [address], 11/24/2024 18:36:56 11/18/19 25 11/18/2024 CBC WITH DIFFE RENTI AL/PL ATELE T neutrophils 58 % not estab. normal Not Available [facility] ([facility]) [address] [place], [address], 11/24/2024 18:36:56 11/18/19 25 11/18/2024 CBC WITH DIFFE RENTI AL/PL ATELE T lymphs 32 % not estab. normal Not Available [facility] ([facility]) [address] [place], [address], 11/24/2024 18:36:56 11/18/19 25 11/18/2024 CBC WITH DIFFE RENTI AL/PL ATELE T monocytes 9 % not estab. normal Not Available [facility] ([facility]) [address] [place], [address], 11/24/2024 18:36:56 11/18/19 25 11/18/2024 CBC WITH DIFFE RENTI AL/PL ATELE T eos 1 % not estab. normal Not Available [facility] ([facility]) [address] [facility], [place], [address], 11/24/2024 18:36:56 11/18/1911/18/2024 CBC WITH DIFFE RENTI AL/PL ATELE T basos 0 % not estab. normal Not Available [facility] ([facility]) [address] [place], [address], 11/24/2024 18:36:56 11/18/19 25 11/18/2024 CBC WITH DIFFE RENTI AL/PL ATELE T immature cells [employer] Not Available [facility] ([facility]) [address] [place], [address], 11/24/2024 18:36:56 11/18/1911/18/2024 CBC WITH DIFFE RENTI AL/PL ATELE T neutrophils (absolute) 2.9 x10e3 /uL 1.4-7. 0 normal Not Available [facility] ([facility]) [address] [place], [address], 11/24/2024 18:36:56 11/18/19 25 11/18/2024 CBC WITH DIFFE RENTI AL/PL ATELE T lymphs (absolute) 1.6 x10e3 /uL 0.7-3. 1 normal Not Available [facility] ([facility]) [address] [facility], [place], [address], 11/24/2024 18:36:56 11/18/19 25 11/18/2024 CBC WITH DIFFE RENTI AL/PL ATELE T monocytes(ab solute) 0.5 x10e3 /uL 0.1-0. 9 normal Not Available [facility] ([facility]) [address] [facility], [place], [address], 11/24/2024 18:36:56 11/18/19 25 11/18/2024 CBC WITH DIFFE RENTI AL/PL ATELE T eos (absolute) 0.0 x10e3 /uL 0.0-0. 4 normal Not Available [facility] ([facility]) [address] [facility], [place], [address], 11/24/2024 18:36:56 11/18/19 25 11/18/2024 CBC WITH DIFFE RENTI AL/PL ATELE T baso (absolute) 0.0 x10e3 /uL 0.0-0. 2 normal Not Available [facility] ([facility]) [address] [facility], [place], [address], 11/24/2024 18:36:56 11/18/19 25 11/18/2024 CBC WITH DIFFE RENTI AL/PL ATELE T immature granulocytes 0 % not estab. Not Available [facility] ([facility]) [address] [place], [address], 11/24/2024 18:36:56 11/18/19 25 11/18/2024 CBC WITH DIFFE RENTI AL/PL ATELE T immature grans (abs) 0.0 x10e3 /uL 0.0-0. 1 Not Available [facility] ([facility]) [address] [facility], [place], [address], 11/24/2024 18:36:56 11/18/19 25 11/18/2024 CBC WITH DIFFE RENTI AL/PL ATELE T NRBC [employer] Not Available [facility] ([facility]) [address] [facility], [place], [address], 11/24/2024 18:36:56 11/18/19 25 11/18/2024 CBC WITH DIFFE RENTI AL/PL ATELE T hematology comments: [employer] Not Available [facility] ([facility]) [address] [facility], [place], [address], 11/24/2024 18:36:56 11/18/19 25 11/18/2024 COMP. METAB OLIC PANEL (14) glucose 106 mg/dL 70-99 above high normal Not Available [facility] ([facility]) [address] [facility], [place], [address], 11/24/2024 18:36:57 11/18/19 25 11/18/2024 COMP. METAB OLIC PANEL (14) BUN 6 mg/dL 6-20 normal Not Available [facility] ([facility]) [address] [facility], [place], [address], 11/24/2024 18:36:57 11/18/19 25 11/18/2024 COMP. METAB OLIC PANEL (14) creatinine 0.56 mg/dL 0.57-1 .00 below low normal Not Available [facility] ([facility]) [address] [facility], [place], [address], 11/24/2024 18:36:57 11/18/19 25 11/18/2024 COMP. METAB OLIC PANEL (14) eGFR 129 mL/mi n/1.7 3 >59 normal Not Available [facility] ([facility]) [address] [place], [address], 11/24/2024 18:36:57 11/18/19 25 11/18/2024 COMP. METAB OLIC PANEL (14) BUN/creatini ne ratio 11 9-23 normal Not Available [facility] ([facility]) [address] [facility], [place], [address], 11/24/2024 18:36:57 11/18/19 25 11/18/2024 COMP. METAB OLIC PANEL (14) sodium 135 mmol/ L 134-14 4 normal Not Available [facility] ([facility]) [address] [facility] [place], [address], 11/24/2024 18:36:57 11/18/19 25 11/18/2024 COMP. METAB OLIC PANEL (14) potassium 3.7 mmol/ L 3.5-5. 2 normal Not Available [facility] ([facility]) [address] [facility] [place], [address], 11/24/2024 18:36:57 11/18/19 25 11/18/2024 COMP. METAB OLIC PANEL (14) chloride 98 mmol/ L 96-106 normal Not Available [facility] ([facility]) [address] [facility], [place], [address], 11/24/2024 18:36:57 11/18/19 25 11/18/2024 COMP. METAB OLIC PANEL (14) carbon dioxide, total 18 mmol/ L 20-29 below low normal Not Available [facility] ([facility]) [address] [facility] [place], [address], 11/24/2024 18:36:57 11/18/19 25 11/18/2024 COMP. METAB OLIC PANEL (14) calcium 9.6 mg/dL 8.7-10 .2 normal Not Available [facility] ([facility]) [address] [facility] [place], [address], 11/24/2024 18:36:57 11/18/19 25 11/18/2024 COMP. METAB OLIC PANEL (14) protein, total 7.1 g/dL 6.0-8. 5 normal Not Available [facility] ([facility]) [address] [facility] [place], [address], 11/24/2024 18:36:57 11/18/19 25 11/18/2024 COMP. METAB OLIC PANEL (14) albumin 4.3 g/dL 4.0-5. 0 normal Not Available [facility] ([facility] [address] [facility] [place], [address], 11/24/2024 18:36:57 11/18/19 25 11/18/2024 COMP. METAB OLIC PANEL (14) globulin, total 2.8 g/dL 1.5-4. 5 Not Available [facility] ([facility]) [address] [facility] [place], [address], 11/24/2024 18:36:57 11/18/19 25 11/18/2024 COMP. METAB OLIC PANEL (14) bilirubin, total 0.8 mg/dL 0.0-1. 2 normal Not Available [facility] ([facility]) [address] [facility] [place], [address], 11/24/2024 18:36:57 11/18/19 25 11/18/2024 COMP. METAB OLIC PANEL (14) alkaline phosphatase 91 IU/L 44-121 normal Not Available [facility] ([facility]) [address] [place] [place], [address], 11/24/2024 18:36:57 11/18/19 25 11/18/2024 COMP. METAB OLIC PANEL (14) AST (SGOT) 40 IU/L 0-40 normal Not Available [facility] [facility] [address] [place] [place], [address], 11/24/2024 18:36:57 11/18/19 25 11/18/2024 COMP. METAB OLIC PANEL (14) ALT (SGPT) 48 IU/L 0-32 above high normal Not Available [facility] ([facility]) [address] [facility] [place], [address], 11/24/2024 18:36:57 11/18/19 25 11/24/2024 VITAM IN E vitamin E(alpha tocopherol) 5.6 mg/L 5.9-19 .4 below low normal Not Available [facility] ([facility]) [address] [facility], [place], [address], 11/24/2024 18:36:57 11/18/19 25 11/24/2024 VITAM IN E vitamin E(gamma tocopherol) 1.7 mg/L 0.7-4. 9 Refer ence inter vals for alpha and gamma -toco phero l deter mined from [facility] tion Exami natio n Surve y, 2004- 2005. Indiv idual s with alpha -toco phero l level s less than 5.0 mg/L are consi dered vitam in E defic ient. Not Available [facility] ([facility]) [address] [facility], [place], [address], 11/24/2024 18:36:57 11/18/19 25 11/18/2024 FOLAT E (FOLI C ACID) , SERUM folate (folic acid), serum 6.5 NG/mL >3.0 normal A serum folat e matt ntrat ion of less than 3.1 ng/mL is consi dered to repre sent clini abby defic iency . Not Available [facility] ([facility]) [address] [facility], [place], [address], 11/24/2024 18:36:58 11/18/1911/24/2024 VITAM IN A, SERUM vitamin A 20.4 ug/dL 18.9-5 7.3 Refer ence inter vals for vitam in A deter mined from [facility] inter nal studi es. Indiv idual s with vitam in A less than 20 ug/dL are consi dered vitam in A defic ient and those with serum matt ntrat ions less than 10 ug/dL are consi dered sever tim defic ient. This test was devel oped and its perfo rmanc e irvin cteri stics deter mined by [facility]. It has not been clear ed or appro birgit by the Food and Drug Admin istra tion. Not Available [facility] ([facility]) [address] [facility], [place], [address], 11/24/2024 18:36:58 11/18/19 25 11/18/2024 VITAM IN D, 25-HY DROXY vitamin D, 25-hydroxy 35.7 NG/mL 30.0-1 00.0 Vitam in D defic iency has been defin ed by the Insti tute of Medic ine and an Endoc rine Socie ty pract ice guide line as a level of serum 25-OH vitam in D less than 20 ng/mL (1,2) . The Endoc rine Socie ty went on to furth er defin e vitam in D insuf ficie ncy as a level betwe en 21 and 29 ng/mL (2). 1. IOM (Inst itute of Medic ine). 2009. Dieta ry refer ence intak es for calci um and D. Lucretia pleitez [place]: The [facility] . 2. Reinaldo moreno MF, Eileen mccann [place], David off-F davina i LILLY, et al. Evalu ation , treat ment, and preve ntion of vitam in D defic iency : an Endoc rine Socie ty clini abby pract ice guide line. JCEM. 2010; 96(7) :1911 -30. Not Available [facility] ([facility]) [address] [facility], [place], [address], 11/24/2024 18:36:59 11/18/19 25 11/23/2024 VITAM IN B1 (THIA MINE) , BLOOD vit. B1, whole blood 82.0 nmol/ L 66.5-2 00.0 Not Available [facility] ([facility]) [address] [facility], [place], [address], 11/24/2024 18:37:00 11/18/19 25 11/22/2024 METHY LMALO JAREK ACID, SERUM methylmaloni c acid, serum 60 nmol/ L 0-378 Not Available [facility] ([facility]) [address] [place], [address], 11/24/2024 18:37:00 11/18/19 25 11/18/2024 PREAL BUMIN prealbumin 15 mg/dL 14-35 Not Available [facility] ([facility]) [address] [facility], [place], [address], 11/24/2024 18:37:01 12/02/19 25 12/02/2024 CBC WITH DIFFE RENTI AL/PL ATELE T WBC 8.4 x10e3 /uL 3.4-10 .8 normal Not Available [facility] ([facility]) [address] [place], [address], 12/02/2024 03:38:32 12/02/19 25 12/02/2024 CBC WITH DIFFE RENTI AL/PL ATELE T RBC 4.94 x10e6 /uL 3.77-5 .28 normal Not Available [facility] ([facility]) [address] [place], [address], 12/02/2024 03:38:32 12/02/19 25 12/02/2024 CBC WITH DIFFE RENTI AL/PL ATELE T hemoglobin 14.3 g/dL 11.1-1 5.9 normal Not Available [facility] ([facility]) [address] [place], [address], 12/02/2024 03:38:32 12/02/19 25 12/02/2024 CBC WITH DIFFE RENTI AL/PL ATELE T hematocrit 41.7 % 34.0-4 6.6 normal Not Available [facility] ([facility]) [address] [place], [address], 12/02/2024 03:38:32 12/02/19 25 12/02/2024 CBC WITH DIFFE RENTI AL/PL ATELE T MCV 84 fL 79-97 normal Not Available [facility] ([facility]) [address] [place], [address], 12/02/2024 03:38:32 12/02/19 25 12/02/2024 CBC WITH DIFFE RENTI AL/PL ATELE T MCH 28.9 pg 26.6-3 3.0 normal Not Available [facility] ([facility]) [address] [place], [address], 12/02/2024 03:38:32 12/02/19 25 12/02/2024 CBC WITH DIFFE RENTI AL/PL ATELE T MCHC 34.3 g/dL 31.5-3 5.7 normal Not Available [facility] ([facility]) [address] [facility], [place], [address], 12/02/2024 03:38:32 12/02/19 25 12/02/2024 CBC WITH DIFFE RENTI AL/PL ATELE T RDW 14.5 % 11.7-1 5.4 Not Available [facility] ([facility]) [address] [place], [address], 12/02/2024 03:38:32 12/02/19 25 12/02/2024 CBC WITH DIFFE RENTI AL/PL ATELE T platelets 171 x10e3 /uL 150-45 0 normal Not Available [facility] ([facility]) [address] [place], [address], 12/02/2024 03:38:32 12/02/19 25 12/02/2024 CBC WITH DIFFE RENTI AL/PL ATELE T neutrophils 72 % not estab. normal Not Available [facility] ([facility]) [address] [facility], [place], [address], 12/02/2024 03:38:32 12/02/19 25 12/02/2024 CBC WITH DIFFE RENTI AL/PL ATELE T lymphs 21 % not estab. normal Not Available [facility] ([facility]) [address] [place], [address], 12/02/2024 03:38:32 12/02/19 25 12/02/2024 CBC WITH DIFFE RENTI AL/PL ATELE T monocytes 6 % not estab. normal Not Available [facility] ([facility]) [address] [facility], [place], [address], 12/02/2024 03:38:32 12/02/19 25 12/02/2024 CBC WITH DIFFE RENTI AL/PL ATELE T eos 1 % not estab. normal Not Available [facility] ([facility]) [address] [facility], [place], [address], 12/02/2024 03:38:32 12/02/19 25 12/02/2024 CBC WITH DIFFE RENTI AL/PL ATELE T basos 0 % not estab. normal Not Available [facility] ([facility]) [address] [facility], [place], [address], 12/02/2024 03:38:32 12/02/19 25 12/02/2024 CBC WITH DIFFE RENTI AL/PL ATELE T immature cells [employer] Not Available [facility] ([facility]) [address] [place], [address], 12/02/2024 03:38:32 12/02/19 25 12/02/2024 CBC WITH DIFFE RENTI AL/PL ATELE T neutrophils (absolute) 6.0 x10e3 /uL 1.4-7. 0 normal Not Available [facility] ([facility]) [address] [place], [address], 12/02/2024 03:38:32 12/02/19 25 12/02/2024 CBC WITH DIFFE RENTI AL/PL ATELE T lymphs (absolute) 1.8 x10e3 /uL 0.7-3. 1 normal Not Available [facility] ([facility]) [address] [facility], [place], [address], 12/02/2024 03:38:32 12/02/19 25 12/02/2024 CBC WITH DIFFE RENTI AL/PL ATELE T monocytes(ab solute) 0.5 x10e3 /uL 0.1-0. 9 normal Not Available [facility] ([facility]) [address] [facility], [place], [address], 12/02/2024 03:38:32 12/02/19 25 12/02/2024 CBC WITH DIFFE RENTI AL/PL ATELE T eos (absolute) 0.1 x10e3 /uL 0.0-0. 4 normal Not Available [facility] ([facility]) [address] [facility], [place], [address], 12/02/2024 03:38:32 12/02/19 25 12/02/2024 CBC WITH DIFFE RENTI AL/PL ATELE T baso (absolute) 0.0 x10e3 /uL 0.0-0. 2 normal Not Available [facility] ([facility]) [address] [facility], [place], [address], 12/02/2024 03:38:32 12/02/19 25 12/02/2024 CBC WITH DIFFE RENTI AL/PL ATELE T immature granulocytes 0 % not estab. Not Available [facility] ([facility]) [address] [place], [address], 12/02/2024 03:38:32 12/02/19 25 12/02/2024 CBC WITH DIFFE RENTI AL/PL ATELE T immature grans (abs) 0.0 x10e3 /uL 0.0-0. 1 Not Available [facility] ([facility]) [address] [facility], [place], [address], 12/02/2024 03:38:32 12/02/19 25 12/02/2024 CBC WITH DIFFE RENTI AL/PL ATELE T NRBC [employer] Not Available [facility] ([facility]) [address] [facility], [place], [address], 12/02/2024 03:38:32 12/02/19 25 12/02/2024 CBC WITH DIFFE KLAUS AL/PL ATELE T hematology comments: [employer] Not Available [facility] ([facility]) [address] [facility], [place], [address], 12/02/2024 03:38:32 12/02/19 25 12/02/2024 COMP. METAB OLIC PANEL (14) glucose 96 mg/dL 70-99 normal Not Available [facility] ([facility]) [address] [facility] [place], [address], 12/02/2024 03:38:33 12/02/19 25 12/02/2024 COMP. METAB OLIC PANEL (14) BUN 5 mg/dL 6-20 below low normal Not Available [facility] ([facility]) [address] [facility], [place], [address], 12/02/2024 03:38:33 12/02/19 25 12/02/2024 COMP. METAB OLIC PANEL (14) creatinine 0.53 mg/dL 0.57-1 .00 below low normal Not Available [facility] ([facility]) [address] [facility] [place], [address], 12/02/2024 03:38:33 12/02/19 25 12/02/2024 COMP. METAB OLIC PANEL (14) eGFR 131 mL/mi n/1.7 3 >59 normal Not Available [facility] ([facility]) [address] [facility] [place], [address], 12/02/2024 03:38:33 12/02/19 25 12/02/2024 COMP. METAB OLIC PANEL (14) BUN/creatini ne ratio 9 9-23 normal Not Available [facility] ([facility]) [address] [place], [address], 12/02/2024 03:38:33 12/02/19 25 12/02/2024 COMP. METAB OLIC PANEL (14) sodium 136 mmol/ L 134-14 4 normal Not Available [facility] ([facility]) [address] [facility] [place], [address], 12/02/2024 03:38:33 12/02/19 25 12/02/2024 COMP. METAB OLIC PANEL (14) potassium 4.5 mmol/ L 3.5-5. 2 normal Not Available [facility] ([facility]) [address] [facility] [place], [address], 12/02/2024 03:38:33 12/02/19 25 12/02/2024 COMP. METAB OLIC PANEL (14) chloride 101 mmol/ L 96-106 normal Not Available [facility] ([facility]) [address] [facility], [place], [address], 12/02/2024 03:38:33 12/02/19 25 12/02/2024 COMP. METAB OLIC PANEL (14) carbon dioxide, total 20 mmol/ L 20-29 normal Not Available [facility] ([facility]) [address] [facility] [place], [address], 12/02/2024 03:38:33 12/02/19 25 12/02/2024 COMP. METAB OLIC PANEL (14) calcium 9.5 mg/dL 8.7-10 .2 normal Not Available [facility] ([facility]) [address] [facility] [place], [address], 12/02/2024 03:38:33 12/02/19 25 12/02/2024 COMP. METAB OLIC PANEL (14) protein, total 6.6 g/dL 6.0-8. 5 normal Not Available [facility] ([facility]) [address] [facility] [place], [address], 12/02/2024 03:38:33 12/02/19 25 12/02/2024 COMP. METAB OLIC PANEL (14) albumin 4.1 g/dL 4.0-5. 0 normal Not Available [facility] ([facility]) [address] [facility] [place], [address], 12/02/2024 03:38:33 12/02/19 25 12/02/2024 COMP. METAB OLIC PANEL (14) globulin, total 2.5 g/dL 1.5-4. 5 Not Available [facility] ([facility]) [address] [facility] [place], [address], 12/02/2024 03:38:33 12/02/19 25 12/02/2024 COMP. METAB OLIC PANEL (14) bilirubin, total 1.6 mg/dL 0.0-1. 2 above high normal Not Available [facility] ([facility]) [address] [facility] [place], [address], 12/02/2024 03:38:33 12/02/19 25 12/02/2024 COMP. METAB OLIC PANEL (14) alkaline phosphatase 83 IU/L 44-121 normal Not Available [facility] ([facility]) [address] [facility] [place], [address], 12/02/2024 03:38:33 12/02/19 25 12/02/2024 COMP. METAB OLIC PANEL (14) AST (SGOT) 46 IU/L 0-40 above high normal Not Available [facility] ([facility]) [address] [facility] [place], [address], 12/02/2024 03:38:33 12/02/19 25 12/02/2024 COMP. METAB OLIC PANEL (14) ALT (SGPT) 59 IU/L 0-32 above high normal Not Available [facility] ([facility]) [address] [facility] [place], [address], 12/02/2024 03:38:33 11/11/19 25 11/10/2024 RF, upper gastr ointe yadira l tract , w/ air, w/ contr ast PO No observ ation record ed. [facility] [address], [place], [address], 11/14/2024 15:11:14 11/11/19 25 11/10/2024 RF, upper gastr ointe yadira l tract , w/ air, w/ contr ast PO No observ ation record ed. [facility] (Scheduling) [address], [place], [address], 11/14/2024 15:11:15 11/11/19 25 11/10/2024 RF, upper gastr ointe yadira l tract , w/ air, w/ contr ast PO No observ ation record ed. [email or web address] [facility] (Scheduling) [address], [place], [address], 11/10/2024 14:58:54 Result Notes None recorded. Problems Name Problem SNOMED Code Status Onset Date Resolution Date Notes Provider Name and Address Organization Details Recorded Time Essential hypertensi on 47600505 Active [address], [place], [address] , [facility] - [facility] & [place] 4 12:30:28 Obesity 992005543 Active [address], [place], [address] , [place] - [facility] & [place] 4 12:30:50 Disorder of function of stomach 290113017 Active [address], [place], [address] , [place] - [facility] & [place] 4 12:30:50 Impaired glucose tolerance 0226373 Active [address], [place], [address] , [place] - [facility] - [place] & [place] 4 12:31:02 Postoperat nicholas pain 358002135 Active [address], [place], [address] , [place] - [facility] - [place] & [place] 5 08:04:37 Contact dermatitis 70268992 Active [address], [place], [address] , [place] - [facility] - [place] & [place] 5 10:32:01 Nausea 835631556 Active [address], [place], [address] , [place] - [facility] - [place] & [place] 5 09:06:20 Nausea and vomiting 19179810 Active [address], [place], [address] , [place] - [facility] - [place] & [place] 5 10:19:41 Bilious vomiting 94083753 Active [address], [place], [address] , [place] - [facility] - [place] & [place] 5 09:06:37 Mild dehydratio n 4695452250914 Active [address], [place], [address] , [place] - [facility] - [place] & [place] 5 09:09:44 Intentiona l weight loss 542720787 Active [address], [place], [address] , [place] - [facility] & [place] 5 09:06:38 Body mass index 40+ - severely obese 124287460 Active [address], [place], [address] , [place] - [facility] - [place] & [place] 5 09:07:05 Severe obesity 2677527226472 4 Active [address], [place], [address] , [place] - [facility] - [place] & [place] 5 09:07:24 Nutritiona l deficiency state 80489001 Active [address], [place], [address] , [place] - [facility] - [place] & [place] 5 10:04:26 Epigastric pain 27866077 Active [address], [place], [address] , [place] - [facility] - [place] & [place] 5 10:16:35 Paresthesi a of upper limb 69819857 Active [address], [place], [address] , [place] - [facility] - [place] & [place] 4 15:38:11 Problem Notes None recorded. Procedures Surgical History Date Name Laterality Status Provider Name and Address Organization Details Recorded Time 10/16/19 25 procedure on duodenum completed Parris GUTHRIE - [facility] & [place] 11/09/2024 08:47:34 12/09/19 24 EMG/ Nerve Conduction Study completed DO [address], [place], [address], [place] - [facility] - [place] & [place] 12/09/2023 15:38:04 [address] completed [address], [place], [address], [place] - [facility] - [place] & [place] 07/04/2024 12:57:53 extraction of wisdom tooth completed Parris GUTHRIE - [facility] & [place] 07/03/2024 15:07:44 Tonsillectomy completed Parris Martinez [facility] & [place] 07/03/2024 15:07:52 procedure on ganglion cyst completed Stephanie Castro [place] - [facility] - [place] & [place] 10/04/2024 07:53:08 Imaging Results Imaging Date Name Status LastModified by Organization Details LastModified Time 11/10/2024 RF, upper gastrointestinal tract, w/ air, w/ contrast PO completed [facility] [address], [place], [address], 11/14/2024 15:11:14 11/10/2024 RF, upper gastrointestinal tract, w/ air, w/ contrast PO completed [facility] (Scheduling) [address], [place], [place], [address], 11/14/2024 15:11:15 11/10/2024 RF, upper gastrointestinal tract, w/ air, w/ contrast PO completed [email or web address] [place] [address] (Scheduling) [address], [place], [address], 11/10/2024 14:58:54 Procedure Notes None recorded. Medical Equipment None [...] height Body mass index (BMI) Body weight Body temperature Heart rate Systolic blood pressure Diastolic blood pressure Provider Name and Address Organization Details Last Updated DateTime 5 170.18 cm 44.4 kg/m2 670843. 44 g 97.7 [degF] 125 /min 144 mm[Hg] 99 mm[Hg] Stephanie Castro [facility] & [place] 5 08:01:28 Date Recorded Body height Body mass index (BMI) Body weight Body temperature Heart rate Systolic blood pressure Diastolic blood pressure Provider Name and Address Organization Details Last Updated DateTime 5 170.18 cm 43 kg/m2 974975. 11 g 97.5 [degF] 92 /min 147 mm[Hg] 98 mm[Hg] Parris Torres [facility] & [place] 5 08:47:54 Date Recorded Body height Body mass index (BMI) Body weight Heart rate Body temperature Systolic blood pressure Diastolic blood pressure Provider Name and Address Organization Details Last Updated DateTime 5 170.18 cm 42.1 kg/m2 720236. 55 g 126 /min 97.7 [degF] 151 mm[Hg] 103 mm[Hg] Jessica Mcnally [facility] & [place] 5 09:02:32 Date Recorded Body height Body temperature Heart rate Body mass index (BMI) Body weight Systolic blood pressure Diastolic blood pressure Provider Name and Address Organization Details Last Updated DateTime 5 170.18 cm 97.3 [degF] 96 /min 41.5 kg/m2 889293. 98 g 120 mm[Hg] 84 mm[Hg] Lorne Presley litzy [facility] & [place] 5 09:49:02 Social History Question Answer Notes LastModified by Organizat ion Details LastModified Time Tobacco Smoking Status Never Smoker Parris Torres [facility] & [place] 07/03/2024 15:12:10 What Is Your Level Of Alcohol Consumption? Occasional [email or web address] Information not available 07/03/2024 What Is Your Level Of Caffeine Consumption? Occasional Information not available 07/04/2024 Do You Use Any Illicit Or Recreational Drugs? No [email or web address] Information not available 07/03/2024 Sex: Female Functional Status None recorded. Mental Status None recorded. Family History Relationship Description Onset Age of this Age Resolved Age Notes LastModified by Organization Details LastModified Time Father Hypertensive disorder [email or web address] Not available 06/2024 15:12:25 Father Hypercholest erolemia [email or web address] Not available 06/2024 15:12:51 Mother Hypertensive disorder Not available 06/2024 15:12:25 Mother Hypercholest erolemia [email or web address] Not available 06/2024 15:12:51 Mother Asthma [email or web address] Not availabl e 07/04/2024 13:49:15 Mother Chronic obstructive pulmonary disease [email or web address] Not available 06/2024 15:13:21 Maternal Grandmother Hypertensive disorder [email or web address] Not available 06/2024 15:12:25 Maternal Grandmother Chronic obstructive pulmonary disease [email or web address] Not available 06/2024 15:13:21 Maternal Grandfather Malignant tumor of lung [email or web address] Not available 06/23 13:49:15 Brother Asthma [email or web address] Not availab le 07/04/2024 13:49:15 Sister Asthma [email or web address] Not availabl e 07/04/2024 13:49:15 Medical History Condition Response Anxiety Disorder Y Diabetes Y Coronary Artery Disease N Other Y Bleeding Disorder N Depression Y Reflux/GERD Y Liver Disease N Heart Disease N Pulmonary Embolism N Deep Vein Thrombosis N Headaches Y Hypertension Y Kidney Disease N Gynecological HistoryNo gynecological history recorded. Obstetrics History GPAL:G 0 P 0 0 0 0 Past Encounters Encounter ID Performer Location Encounter Start Date Encounter Closed Date Diagnosis/Indication Diagnosis SNOMED-CT Code Diagnosis ICD10 Code Diagnosis Note [id number] DO [facility] [address] [place] [address] 12/09/2023 15:31:14 12/09/2023 16:01:57 Paresthesia of upper limb 46343337 R20.2 [id number] [facility] [address] [place] [address] 07/04/2024 11:29:18 07/04/2024 14:10:15 Obesity 977135734 E66.9 The patient will be scheduled for the following. Initial intake lab work, cardiac clearance, and EGD. All risks complicati ons and alternativ es of the upper endoscopy were discussed with the patient and agreed upon. These include but are not limited to, over sedation, bleeding, perforatio n. Patient will be educated by the surgical weight loss team regarding if any medical managed weight loss will be required and they will follow this according to their recommenda tions. patient will follow-up in office after all testing has been completed Disorder o f function of stomach 862390367 K31.89 Pre-surger y evaluation 004110955 Z01.818 Obesity screening 066342 005 Z13.89 Essential hypertension 62826789 I10 Impaired g lucose tolerance 8678374 R73.[id number] [facility] [address] [facility] [address] [place] [address] 07/04/2024 13:49:08 07/04/2024 14:22:02 Dietary management surveillance 521342548 Z71.3 Completed nutrition evaluation and education with patient. Education provided:- Importance of not skipping meals and eating every 2-4 hours.- Meeting protein goals based on recommende d surgery.-B egin reducing the amount of carbonated , caffeinate d, and sugary beverages consumed.- Encouraged getting in 64 oz. of fluids daily-Impo rtance of physical activity to help maintain muscle mass and to have successful weight loss-Impor tance of tracking calories and protein with a smartphone dot-Encour aged trying different protein shakes. Handouts provided: Surgical weight loss manual with nutrition education regarding protein, fruits, vegetables , grains, dairy, fats/oil, cooking methods, sample meal plan, and sample mix and match pairings, and exercise. Specific surgical manual provided to patient based on recommende d surgery. [id number] Forest Mena MD [facility] [address] [facility] [address] [place] [address] 08/01/2024 09:01:56 08/01/2024 09:49:38 Preoperative cardiovascular examination 031565344 Z01.810 23-year-ol d female sent for preoperati ve cardiovasc ular evaluation for weight loss surgery. She is physically active asymptomat ic can do more than 6 METs with no limitation s. EKG normal sinus rhythm. She can proceed with the surgery as low risk patient for moderate risk procedure from the cardiovasc ular standpoint . Obesity 111256438 E66.9 obesity body mass index 49.8. For weight loss surgery. Recommend sleep apnea evaluation . Essential hypertension 10764774 I10 hypertensi on on hydrochlor othiazide. Recommend switching to beta mathew because she is in the childbeari ng age. Patient declined at this time. She understand s the possible side effects of hydrochlor othiazide. [id number] [address] [facility] [address] [place] [address] [address] [place] [address] 08/08/2024 12:37:07 08/08/2024 13:20:53 Dietary management surveillance 478380213 Z71.3 [id number] KALI RUBI MD [facility] [address] [place] [address] [address] [place] [address] 10/04/2024 07:39:52 10/04/2024 14:13:26 Morbid obesity [id number] E66.01 Pre-surger y evaluation [id number] Z01.818 Postoperative pain 79175 9007 G89.18 pt will continue pregabalin post operativel y Essential hypertension 61442424 I10 Impaired g lucose tolerance 4881091 R73.03 [id number] RON Azar [facility] Bariatric s and Adv Surg [address] [place] [address] [address] [place] [address] 10/24/2024 07:55:40 10/24/2024 10:33:45 History of gastrectomy [id number] Z90.3 Encouraged patient to continue focus on intake of adequate protein and hydration. Advised minimum 70 g of protein and 800 calories. Patient is to continue incentive spirometer for another 5-7 days Encouraged ambulation Patient is to start bariatric approved vitamin Follow up 3 weeks Contact dermatitis 19187 004 L25.9 Likely from surgical glue. Patient advised to keep area clean. She may apply Benadryl cream or calamine lotion. Advised she take Zyrtec q.a.m. and Benadryl q.p.m.. Advised she avoid scratching these areas. She is report any worsening symptoms. [id number] RON Azar [facility] [address] [facility] [address] [place] [address] 11/09/2024 08:34:40 11/09/2024 14:27:44 Nausea and vomiting [id number] R11.2 Long discussion today regarding adherence to [...] UGI to further evaluate - pt request [facility].Alexander bowen is advised to call or go to the ED for any acute worsening of abdominal symptoms.Alexander bowen is to keep scheduled follow-up 11/17/2024 Mild dehydration 5624788 119 108 E86.0 Patient will have to a L normal saline IV rehydratio n today in office. History of gastrectomy [id number] Z90.3 s/p TORI-s 10/16/24 [id number] RON Azar [facility] Adv Surg [address] [facility] [address] [place] [address] 3 11/17/2024 08:51:00 11/17/2024 09:41:49 Disorder of function of stomach 938592896 K31.89 Long discussion with patient regarding fatigue [...] call for any worsening symptoms Essential hypertension 85322352 I10 Stop monitor and discussed with PCP Impaired g lucose tolerance 6711314 R73.03 History of gastrectomy 014796344 Z90.3 We discussed diet and the importance [...] to correct any vitamin deficienci es. At [facility] risk of nutritional deficit [id number] Z91.89 Severe obesity 453612029 1 9104 E66.813 E66.01 Z68.[id number] [facility] Bariatric s and Adv Surg [address] [place] [address] [address] [place] [address] 11/17/2024 09:37:00 11/17/2024 10:29:59 Diet education 35832183 Z71.3 [id number] RON Azar [facility] Bariatric s and Adv Surg [address] [place] [address] [address] [place] [address] 12/01/2024 09:40:04 12/01/2024 10:22:02 Nausea and vomiting 99063930 R11.2 Long discussion with patient regarding fatigue and nausea specifical ly related to caloric intake.Carmen thorne will be prescribed Compazine. Patient advised she is to use this medication to facilitate p.o. intake. Encouraged patient to continue focus on p.o. intake, constantly sip on fluids/abby ories/prot ein in order to get an minimal amounts.Ron benjamin is to continue vitamin supplement ation. We will give patient B1 and B12 injection today.We are checking labs today and will follow up patientPla n follow-up 2-3 weeks after EGD has been resulted Nutritiona l deficiency state [id number] E63.9 Encouraged patient see focus on p.o. intake. Advised she continue small frequent sips of protein drinks. History of gastrectomy [id number] Z90.3 s/p Tori-s 10/16/24 with continued struggles including nausea vomiting p.o. intake.Carmen thonre had upper GIPatient will be scheduled for upper endoscopy for further evaluation Epigastric pain 89461678 R10.13 Advised patient to continue omeprazole . We will increase this to b.i.d.. Patient is to open capsule intake on full of applesauce or yogurt. Encouraged patient to be diligent with q.i.d. Carafate intake. Advised she can crush this pill or dissolve in liquid. Explained this medication is to help with healing and is treatment for gastritis/ esophagiti s concerns Patient will be scheduled for upper endoscopy to further evaluate ongoing symptoms.A ll risks complicati ons alternativ es to upper endoscopy were discussed patient today. He is include but limited to over-sedat ion perforatio n bleeding. Patient agrees to proceed with EGDWe will follow up with patient after EGD has been resulted.P atient is advised to go to this [place] ED for any acute worsening symptoms Health Concerns Section Related Observation LastModified by Organization Detai ls LastModified Time None Recorded Concern Status LastModified by Organization Details LastModified Time None Recorded Advance Directives Directive None Recorded Payers Encounter Date Sequence Insurance Name Policy Number Policy Sanchez Covered Member ID Sanchez Member ID Guarantor Name 10/24/2024 1 [facility] [place] Penelope N Christina [id number] Penelope Christina 11/09/2024 1 [facility] [id number] Penelope N Christina [id number] Penelope Christina 11/17/2024 1 [facility] [place] Penelope N Christina [id number] Penelope Christina 11/17/2024 1 [facility] [employer] [place] Penelope N Christina [id number] Penleope Christina 12/01/2024 1 [facility] [place] Penelope N Christina [id number] Penelope Christina Notes Date Note Type Note Provider Name and Address Organization Details Recorded Time 10/24/2024 text/html Patient presents for 1wk Post-Op Check s/p Tori-s 10/16/24 Patient is doing well. Tolerating PO intake w/out issue. Getting 740-50g/dy protein. Pt reports good hydration. -64 oz [...] cream. She has removed glue from each incision.Shiva archuletaPt is happy with their quality of life after Weight loss Surgery. RON Azar [address], [place], [address], [facility] - [place] - [place] & [place] 10/24/2024 10:34:38 11/09/2024 text/html Patient presents today as sick visit. She is s/p Tori-s 10/16/24Patient states she went to [facility] ED last night for nausea [...] well. Tolerating PO intake w/out issue. Getting 740-50g/dy protein. Pt reports good hydration. -64 oz [...] cream. She has removed glue from each incision.RON Arshad [address], [place], [address], [place] - [place] - [place] & [place] 11/09/2024 13:41:24 11/17/2024 text/html Patient presents today for one-month [...] to return to work. 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 She states she has no money for different vitamins.Heartburn/ gastroesophageal reflux: she is taking omeprazole.She reports constipation. Pt Denies : abdominal pain, prandial issues Nausea, Vomiting, bladder issuesTotal Weight loss 35lbElevated BP today - pt has not been taking HCTZ. She has not seen PCP since surgery. @11/09/24 Patient presents today as sick visit. She is s/p Tori-s 10/16/24Patient states she went to [facility] ED last night for nausea [...] incision.Path benign RON Azar [address], [place], [address], [facility] & [place] 11/17/2024 09:31:49 11/17/2024 text/html RDN met w/ pt fo r 1month f/up s/p TORI-S . Pt weight at MD Consult: 301.4#Current Weight: 268.5#Total Weight Change: -32.9# Notes on weight: desires continued weight loss at this time Signs/SymptomsN/V/C /D: nausea, constipation and dry heaves - taking [...] doesn't qualify for food stamps ISRAEL HERNÁNDEZ, YAMINI [address], [place], [address], [facility] & [place] 11/17/2024 09:58:38 12/01/2024 text/html Patient presents today for sick visit s/p Tori-s 10/16// UGI (Read as ERIN [facility]OS[facility]) No stricture identified no hiatal hernia normal findings, no reflux seen.Patient returns to clinic today. She states she was doing well until approximately 2-3 days ago and started vomiting again She does tell me she tolerated peanut butter protein shake yogurt and cottage cheese yesterday. She did vomit last evening. She reports more vomiting at night. She does admits to eating right before going to bed. She is using Zofran and this helps sometimes and sometimes it does not. Patient reports epigastric pain and pressure and frequent eructation. She denies hematemesis. Patient states she has quit her job due to issues status post weight loss surgeryShe has not tracking carbs calories and protein. She is taking gummy multivitamin.Jade grullon has lost 36 lb since surgery. Current BMI is 41.5 @1mth post op - She has been ill cough and body aches [...] to return to work. 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 She states she has no money for different vitamins.Heartburn/ gastroesophageal reflux: she is taking omeprazole.She reports constipation. Pt Denies : abdominal pain, prandial issues Nausea, Vomiting, bladder issuesTotal Weight loss 35lbElevated BP today - pt has not been taking HCTZ. She has not seen PCP since surgery. @11/09/24 Patient presents today as sick visit. She is s/p Tori-s 10/16/24Patient states she went to [facility] ED last night for nausea [...] glue from each incision.Path benign RON Azar [address], [place], [address], [facility] - [facility] - [place] & [place] 12/01/2024 10:37:51 OBGyn Episode No OBEpisode recorded.
[2024-12-14 11:16] LABS: Urine Pregnancy, HCG Qual. Positive (Negative)
[2024-12-14 12:27] LABS: Microscopic, Urine URINE MICROSCOPIC (MICROSCOPIC)
[2024-12-14 12:29] LABS: Basophils % 0.2 % (0.1-2.0); Eosinophils % 0.6 % (0.1-12.0); Hematocrit 37.6 % (37.0-47.0); Lymphocytes # 1.9 K/mm3 (0.7-4.5); Lymphocytes % 29.6 % (10-50); Mean Corpuscular HGB Conc 34.6 g/dL (31.8-35.4); Mean Corpuscular Hemoglobin 29.3 pg (27.0-31.2); Mean Corpuscular Volume 84.7 fl (81-99); Mean Platelet Volume 12.1 fl (7.4-10.4); Monocytes # 0.4 K/mm3 (0.1-1.0); Monocytes % 5.5 % (1.7-9.3); Neutrophils % 63.9 % (37.0-80.0); Nucleated Red Blood Cells # 0 10^3/uL; Nucleated Red Blood Cells % 0 %; Platelet Count 204 K/mm3 (142-424); Red Blood Count 4.44 M/mm3 (4.20-5.40); Red Cell Distribution Width 15.1 % (11.5-17.5); Red Cell Distribution Width-SD 45.9 fL; White Blood Count 6.3 K/mm3 (4.8-10.8)
[2024-12-14 12:36] LABS: Appearance,Urine CLEAR (Clear); Blood, Urine Negative (Negative); Color,Urine YELLOW (Yellow); Glucose,Urine (UA) Negative (Negative); Ketones,Urine 1+ (Negative); Leukocyte Esterase,Urine TRACE (Negative); Nitrate,Urine POSITIVE (Negative); PH,Urine 5.5 (5.0-8.5); Protein,Urine TRACE (Negative); Specific Gravity, Urine >= 1.030 (1.005-1.030)
[2024-12-14 12:43] LABS: Alanine Aminotransferase 29 U/L (12-78); Albumin Level 3.7 g/dl (3.5-5.0); Albumin/Globulin Ratio 1.4 (1.1-1.8); Alkaline Phosphatase 70 U/L (38-126); Anion Gap 11.7 mEq/L (5-15); Aspartate Amino Transferase 28 U/L (14-36); Blood Urea Nitrogen 3 mg/dl (7-17); Calcium 9.1 mg/dl (8.4-10.2); Carbon Dioxide 22 mmol/L (22.0-30.0); Chloride 107 mmol/L (98-107); Creatinine Clearance Estimated 276 mL/min (50-200); Estimated Glomerular Filt Rate 269 ml/min (>60); GFR (African American) 325 ML/MIN (>60); Globulin 2.7 g/dL (1.3-3.2); Glucose 103 mg/dl (74-100); Hepatitis C Ab Qual. W/ RFX NEGATIVE (Negative); Potassium 3.7 mmoL/L (3.5-5.1); Sodium 137 mmol/L (136-145); Total Protein,Serum 6.4 g/dl (6.3-8.2)
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
[2024-12-14 12:52] LABS: Bilirubin,Urine 2+ (Negative)
[2024-12-14 12:53] LABS: Amorphous Sediment,Urine 4+ /lpf; Bacteria,Urine Trace /lpf; WBC,Urine Occasional #/hpf (0-3)
[2024-12-14 13:03] LABS: HCG,Quantitative 43793 mIU/ml (0-5.42)
[2024-12-14] MEDS: PRENATAL MULTIVITAMIN W/IRON 1 EACH PO (13:17)
[2024-12-14] MEDS: CEFDINIR 300MG CAPSULE 300 MG PO (13:17)
[2024-12-14 14:07] VITALS: BP 132/78; PULSE 80; RESP 18; TEMP 36.7; O2SAT 98
== END 2024-12-14 14:09 | disposition home or self-care (01) ==
PROVIDERS: Emergency Provider Emergency Medicine; PCP Nurse Practitioner Family
DX: O23.41 Unspecified infection of urinary tract in pregnancy, first trimester (principal); R11.2 Nausea with vomiting, unspecified; R19.7 Diarrhea, unspecified; Z3A.12 12 weeks gestation of pregnancy
CPT/HCPCS: 80053; 81001; 81025; 84702; 85025; 86803; 87086; 87088; 99284

== ENCOUNTER 2024-12-14 15:01 | Outpatient (CLI) | payer OTHER, SELFPAY ==
--- NOTE | 2024-12-14 14:45 | US_ITS ---
PROCEDURE INFORMATION: Exam: US First Trimester, Transabdominal and US , Transvaginal Exam date and time: 12/14/2024 3:10 PM Age: 24 years old Clinical indication: Screening exam; Other: Viability , vomiting; ; Additional info: Needs stat for dates and viability TECHNIQUE: Imaging protocol: Real-time transabdominal obstetrical ultrasound of the maternal pelvis and a first trimester , less than 14 weeks 0 days, with image documentation. Transvaginal imaging was used for better evaluation of the fetus, adnexa, and/or cervix. COMPARISON: No relevant prior studies available. FINDINGS: GESTATION: Gestation: Single intrauterine gestation. Yolk sac is nonvisualized.. Embryo/ cardiac activity (BPM): 174 bpm Extra-embryonic membranes/Placenta: Large complex fluid collection with internal septations and debris noted around the entire gestational sac suggesting subchorionic hemorrhage. This is difficult to measured due to the extensive nature. The largest component superiorly measures approximately 4.2 x 2.2 cm. Largest component anteriorly measures 5.1 x 1.2 cm. Largest component inferiorly measures 5.3 x 1.6 cm. Amniotic/Chorionic fluid: Amniotic and extra-amniotic fluid are normal for gestational age. BIOMETRY: Gestational age (AUA): 11 w 3 d Estimated due date (AUA): 07/02/2025 [place] rump length (CRL): 44.7 mm. EGA (CRL) is 11 w 3 d MATERNAL: Uterus: Unremarkable. Cervix: Unremarkable. Endocervical canal is closed. Right ovary/adnexa: Obscured by lack of adequate acoustic window. Left ovary/adnexa: Obscured by lack of adequate acoustic window. Intraperitoneal space: No intraperitoneal free fluid. IMPRESSION: 1. Single live IUP with ultrasound age of 11 weeks and 3 days with corresponding CAYLA 07/02/2025. 2. Large complex subchorionic hemorrhage extending around most of the gestational sac as detailed above. Advise follow-up to ensure resolution or assess for progression. 3. No other acute findings. Ovaries nonvisualized.
--- OUTSIDE RECORDS SUMMARY | 2024-12-14 15:04 | XMS_ITS | Continuity of Care Document ---
Author Organization [place] - [place] - [place] & [facility]urg Address [address] [place] [address] Care Team Providers Care Cake Puncher Name Role Phone KARLOS CHESTER Primary Care Provider Assessment No assessment recorded. Plan of Treatment Reminders Order Date Submit Date Provider Last Modified By Organization Details Last Modified Time Details Appointments SURGERY 15 2024 11:45A M KALI HAMILTON MD Not available Not available Not available Lab None recorded. Referral None recorded. Procedures None recorded. Surgeries None recorded. Imaging RF, upper gastroint estinal tract, w/ air, w/ contrast PO 2024 025 [facility] (Scheduling), [address], [place], [address], 11/10/2024 12:55:13 Medication Orders Carafate 1 gram tablet 2024 025 [facility], [address], [place], [address], 11/09/2024 09:15:26 Patient TargetsNo targets recorded. Patient InstructionsNo instructions recorded. Reason for Referral None Reported. Results Created Date Observation Date Name Description Value Unit Range Abnormal Flag Note LastModifiedBy Organization Detail LastModifiedTime 11/11/1911/10/2024 RF, upper gastr ointe yadira l tract , w/ air, w/ contr ast PO No observ ation record ed. [facility] [address], [place], [address], 11/14/2024 15:11:14 11/11/19 25 11/10/2024 RF, upper gastr ointe yadira l tract , w/ air, w/ contr ast PO No observ ation record ed. [facility] (Scheduling) [address], [place], [address], 11/14/2024 15:11:15 11/11/19 25 11/10/2024 RF, upper gastr ointe yadira l tract , w/ air, w/ contr ast PO No observ ation record ed. [email or web address] [facility] (Scheduling) [address], [place], [address], 11/10/2024 14:58:54 Result Notes None recorded. Problems Name Problem SNOMED Code Status Onset Date Resolution Date Notes Provider Name and Address Organization Details Recorded Time Essential hypertensi on 80959950 Active [address], [place], [address] , [place] - [facility] & [place] 4 12:30:28 Obesity 578070673 Active [address], [place], [address] , [place] [facility] & [place] 4 12:30:50 Disorder of function of stomach 959495055 Active [address], [place], [address] , [place] [facility] & [place] 4 12:30:50 Impaired glucose tolerance 9872679 Active [address], [place], [address] , [place] - [facility] & [place] 4 12:31:02 Postoperat nicholsa pain 605663480 Active [address], [place], [address] , [place] & [place] 5 08:04:37 Contact dermatitis 61824458 Active [address] , [place], [address] , [place] [facility] & [place] 5 10:32:01 Nausea 755841133 Active [address], [place], [address] , [place] [facility] [place] & [place] 5 09:06:20 Nausea and vomiting 45162229 Active [address], [place], [address] , [place] [facility] & [place] 5 10:19:41 Bilious vomiting 77051849 Active [address], [place], [address] , [place] [facility] & [place] 5 09:06:37 Mild dehydratio n 8589007566223 Active [address] , [place], [address] , [place] [facility] & [place] 5 09:09:44 Intentiona l weight loss 171580211 Active [address], [place], [address] , [place] [facility] & [place] 5 09:06:38 Body mass index 40+ - severely obese 642808263 Active [address], [place], [address] , [place] [facility] & [place] 5 09:07:05 Severe obesity 0720194024355 4 Active [address], [place], [address] , [place] [facility] & [place] 5 09:07:24 Nutritiona l deficiency state 43449748 Active [address], [place], [address] , [facility] - [facility] & [place] 5 10:04:26 Epigastric pain 31773342 Active [address], [place], [address] , [facility] - [facility] & [place] 5 10:16:35 Paresthesi a of upper limb 60247059 Active [address], [place], [address] , [facility] - [facility] & [place] 4 15:38:11 Problem Notes None recorded. Procedures Surgical History Date Name Laterality Status Provider Name and Address Organization Details Recorded Time 10/16/19 25 procedure on duodenum completed Parris Torres [facility] & [place] 11/09/2024 08:47:34 12/09/19 24 EMG/ Nerve Conduction Study completed DO [address], [place], [address], [facility] - [facility] & [place] 12/09/2023 15:38:04 Cholecystectomy completed [address], [place], [address], [facility] - [facility] & [place] 07/04/2024 12:57:53 extraction of wisdom tooth completed Parris Torres [place] - [facility] & [place] 07/03/2024 15:07:44 Tonsillectomy completed Parris Torres [facility] & [place] 07/03/2024 15:07:52 procedure on ganglion cyst completed Stephanie Castro [facility] & [place] 10/04/2024 07:53:08 Imaging Results None recorded. Procedure [...] Updated DateTime 5 170.18 cm 43 kg/m2 716085. 11 g 97.5 [degF] 92 /min 147 mm[Hg] 98 mm[Hg] Parris Torres [facility] & [place] 5 08:47:54 Social History Question Answer Notes LastModified by Organizat ion Details LastModified Time Tobacco Smoking Status Never Smoker Parris Torres [facility] & [place] 07/03/2024 15:12:10 What Is Your Level Of Alcohol Consumption? Occasional [email or web address] Information not available 07/03/2024 What Is Your Level Of Caffeine Consumption? Occasional [email or web address] Information not available 07/04/2024 Do You Use Any Illicit Or Recreational Drugs? No [email or web address] Information not available 07/03/2024 Sex: Female Functional Status None recorded. Mental Status None recorded. Family History Relationship Description Onset Age of this Age Resolved Age Notes LastModified by Organization Details LastModified Time Father Hypertensive disorder Not available 06/2024 15:12:25 Father Hypercholest erolemia [email or web address] Not available 06/2024 15:12:51 Mother Hypertensive disorder [email or web address] Not available 06/2024 15:12:25 Mother Hypercholest erolemia [email or web address] Not available 06/2024 15:12:51 Mother Asthma [email or web address] Not availabl e 07/04/2024 13:49:15 Mother Chronic obstructive pulmonary disease [email or web address] Not available 06/2024 15:13:21 Maternal Grandmother Hypertensive disorder [id number] Not available 06/2024 15:12:25 Maternal Grandmother Chronic obstructive pulmonary disease [email or web address] Not available 06/2024 15:13:21 Maternal Grandfather Malignant tumor of lung [email or web address] Not available 06/23 13:49:15 Brother Asthma [email or web address] Not availab le 07/04/2024 13:49:15 Sister Asthma [email or web address] Not availabl e 07/04/2024 13:49:15 Medical History [...] SNOMED-CT Code Diagnosis ICD10 Code Diagnosis Note [id number] ANAIS Azar [facility] [address] [facility] [address] [place] [address] 10/24/2024 07:55:40 10/24/2024 10:33:45 History of gastrectomy 069773038 Z90.3 Encouraged patient to continue focus on intake of adequate protein and hydration. Advised minimum 70 g of protein and 800 calories. Patient is to continue incentive spirometer for another 5-7 days Encouraged ambulation Patient is to start bariatric approved vitamin Follow up 3 weeks Contact dermatitis 98002 004 L25.9 Likely from surgical glue. Patient advised to keep area clean. She may apply Benadryl cream or calamine lotion. Advised she take Zyrtec q.a.m. and Benadryl q.p.m.. Advised she avoid scratching these areas. She is report any worsening symptoms. [id number] ANAIS Azar [facility] [address] [place] [address] 11/09/2024 08:34:40 11/09/2024 14:27:44 Nausea and vomiting 96160525 R11.2 Long discussion today regarding adherence to advise diet progressyamila n. Would advise patient is spend the [...] UGI to further evaluate - pt request [facility].Alexander bowen is advised to call or go to the ED for any acute worsening of abdominal symptoms.Alexander bowen is to keep scheduled follow-up 11/17/2024 Mild dehydration 1209812 119 108 E86.0 Patient will have to a L normal saline IV rehydratio n today in office. History of gastrectomy 206573005 Z90.3 s/p TORI-s 10/16/24 Health Concerns Section Related Observation LastModified by Organization Detai ls LastModified Time None Recorded Concern Status LastModified by Organization Details LastModified Time None Recorded Payers Encounter Date Sequence Insurance Name Policy Number Policy Sanchez Covered Member ID Sanchez Member ID Guarantor Name 11/09/2024 1 [facility] ([place] - [place] Penelope Chrisitna [id number] Penelope Christina Notes Date Note Type Note Provider Name and Address Organization Details Recorded Time 11/09/2024 text/html Patient presents today as sick visit. She is s/p Tori-s 10/16/24Patient states she went to [facility] ED last night for nausea and vomiting. [...] has removed glue from each incision.Path benign AyleenANAIS Darby [address], [place], [address], [facility] - [facility] - [place] & [place] 11/09/2024 13:41:24 OBGyn Episode No OBEpisode recorded.
--- OUTSIDE RECORDS SUMMARY | 2024-12-14 15:04 | XMS_ITS | Continuity of Care Document ---
Author Organization [place] - NT [facility] Address [address] [place] [address] Care Team Providers Care Logging Operations Inspector Name Role Phone KARLOS CHESTER Primary Care Provider Assessment No assessment recorded. Plan of Treatment Reminders Order Date Submit Date Provider Last Modified By Organization Details Last Modified Time Details Appointments SURGER Y 15 2024 11:45A M KALI RUBI MD Not available Not available Not available Lab magnes ium, serum or plasma 2024 025 [facility], [address] [place] [address], [address], 12/08/2024 04:11:53 phosph orus, serum or plasma 2024 025 [facility], [address] [place] [address], [address], 12/08/2024 04:11:53 CBC w/ auto diff 2024 025 [facility], [address], [address], [place], [address], 12/02/2024 03:38:32 CMP, serum or plasma 2024 025 [facility], [address], [address], [place], [address], 12/02/2024 03:38:33 Referral None record ed. Procedures None record ed. Surgeries esopha gogast roduod enosco py (SURG) 2024 025 [email or web address] Kali Rubi MD, [address], [facility] [address], [place], [address], 12/01/2024 13:23:56 Imaging None record ed. Medication Orders thiami ne HCl (vitam in B1) 100 mg/mL inject ion soluti on 2024 025 [email or web address] Not available 12/01/2024 10:25:48 cyanoc obalam in (vit B-12) 1,000 mcg/mL inject ion soluti on 2024 025 [email or web address] Not available 12/01/2024 10:24:52 Compaz ine 5 mg tablet [address] [facility]91, [address], [place], [address], 12/01/2024 10:20:25 Patient TargetsNo targets recorded. Patient InstructionsNo instructions recorded. Reason for Referral None Reported. Results Created Date Observation Date Name Description Value Unit Range Abnormal Flag Note LastModifiedBy Organization Detail LastModifiedTime 11/11/1911/10/2024 RF, upper gastr ointe yadira l tract , w/ air, w/ contr ast PO No observ ation record ed. [facility] [address], [place], [address], 11/14/2024 15:11:14 11/11/19 25 11/10/2024 RF, upper gastr ointe yadira l tract , w/ air, w/ contr ast PO No observ ation record ed. [facility] (Scheduling) [address], [place], [address], 11/14/2024 15:11:15 11/11/19 25 11/10/2024 RF, upper gastr ointe yadira l tract , w/ air, w/ contr ast PO No observ ation record ed. [email or web address] [facility]) [address], [place], [address], 11/10/2024 14:58:54 Result Notes None recorded. Problems Name Problem SNOMED Code Status Onset Date Resolution Date Notes Provider Name and Address Organization Details Recorded Time Essential hypertensi on 61483479 Active [address], [place], [address] , [place] - [facility] - [place] & [place] 4 12:30:28 Obesity 738565349 Active [address], [place], [address] , [place] - [facility] [place] & [place] 4 12:30:50 Disorder of function of stomach 706245440 Active [address], [place], [address] , [place] [facility] & [place] 4 12:30:50 Impaired glucose tolerance 1768619 Active [address], [place], [address] , [place] [facility] & [place] 4 12:31:02 Postoperat nicholas pain 368868830 Active [address], [place], [address] , [place] [facility] [place] & [place] 5 08:04:37 Contact dermatitis 34919483 Active [address], [place], [address] , [place] & [place] 5 10:32:01 Nausea 251519686 Active [address], [place], [address] , [place] & [place] 5 09:06:20 Nausea and vomiting 25343208 Active 2024 [address], [place], [address] , [place] [facility] & [place] 5 10:19:41 Bilious vomiting 24363504 Active 2024 [address], [place], [address] , [place] & [place] 5 09:06:37 Mild dehydratio n 2126477145532 Active [address], [place], [address] , [place] [facility] & [place] 5 09:09:44 Intentiona l weight loss 289615588 Active [address], [place], [address] , [place] & [place] 5 09:06:38 Body mass index 40+ - severely obese 196035743 Active [address], [place], [address] , [place] [facility] & [place] 5 09:07:05 Severe obesity 9636684323179 4 Active [address], [place], [address] , [place] [facility] 5 09:07:24 Nutritiona l deficiency state 94740905 Active [address], [place], [address] , [place] [facility] & [place] 5 10:04:26 Epigastric pain 56008907 Active [address], [place], [address] , [place] & [place] 10:16:35 Paresthesi a of upper limb 80986544 Active 2023 Raquel Guillen DO [address], [place], [address] , [facility] & [place] 15:38:11 Problem Notes None recorded. Procedures Surgical History Date Name Laterality Status Provider Name and Address Organization Details Recorded Time 10/16/19 procedure on duodenum completed Parris Torres [facility] & [place] 11/09/2024 08:47:34 12/09/19 24 EMG/ Nerve Conduction Study completed Raquel Guillen DO [address], [place], [address], [facility] & [place] 12/09/2023 15:38:04 Cholecystectomy completed RON Azar [address], [place], [address], [facility] & [place] 07/04/2024 12:57:53 extraction of wisdom tooth completed Parris Torres [facility] & [place] 07/03/2024 15:07:44 Tonsillectomy completed Parris Torres [facility] & [place] 07/03/2024 15:07:52 procedure on ganglion cyst completed Stephanie Castro [facility] & [place] 10/04/2024 07:53:08 Imaging Results None recorded. Procedure [...] completed Not Available Not Available Not Available [facility] ODT 75 mg disintegrat ing tablet active Not Available Not Available N ot Available Vitals Date Recorded Body height Body temperature Heart rate Body mass index (BMI) Body weight Systolic blood pressure Diastolic blood pressure Provider Name and Address Organization Details Last Updated DateTime 5 170.18 cm 97.3 [degF] 96 /min 41.5 kg/m2 893912. 98 g 120 mm[Hg] 84 mm[Hg] Lorne Sharp-Bec litzy [facility] & [place] 5 09:49:02 Social History Question Answer Notes LastModified by Organizat ion Details LastModified Time Tobacco Smoking Status Never Smoker Parris Torres [facility], [facility] & [place] 07/03/2024 15:12:10 What Is Your Level Of Alcohol Consumption? Occasional [email or web address] Information not available 07/03/2024 What Is Your Level Of Caffeine Consumption? Occasional Information not available 07/04/2024 Do You Use Any Illicit Or Recreational Drugs? No [email or web address] Information not available 07/03/2024 Sex: Female Functional Status None recorded. Mental Status None recorded. Family History Relationship Description Onset Age of this Age Resolved Age Notes LastModified by Organization Details LastModified Time Father Hypertensive disorder [email or web address] Not available 06/2024 15:12:25 Father Hypercholest erolemia [email or web address] Not available 06/2024 15:12:51 Mother Hypertensive disorder [email or web address] Not available 06/2024 15:12:25 Mother Hypercholest erolemia [id number] Not available 06/2024 15:12:51 Mother Asthma [email or web address] Not availabl e 07/04/2024 13:49:15 Mother Chronic obstructive pulmonary disease [email or web address] Not available 06/2024 15:13:21 Maternal Grandmother Hypertensive disorder Not available 06/2024 15:12:25 Maternal Grandmother Chronic obstructive pulmonary disease [email or web address] Not available 06/2024 15:13:21 Maternal Grandfather Malignant tumor of lung [email or web address] Not available 06/23 13:49:15 Brother Asthma [email or web address] Not availab le 07/04/2024 13:49:15 Sister Asthma [email or web address] Not availabl e 07/04/2024 13:49:15 Medical History [...] SNOMED-CT Code Diagnosis ICD10 Code Diagnosis Note [id number] RON Azar [facility] [address] [facility] [address] [place] [address] 11/09/2024 08:34:40 11/09/2024 14:27:44 Nausea and vomiting 68908777 R11.2 Long discussion today regarding adherence to advise diet progressio n. Would advise patient is spend the [...] UGI to further evaluate - pt request [facility].Alexander bowen is advised to call or go to the ED for any acute worsening of abdominal symptoms.Alexander bowen is to keep scheduled follow-up 11/17/2024 Mild dehydration 0255049 119 108 E86.0 Patient will have to a L normal saline IV rehydratio n today in office. History of gastrectomy 358639403 Z90.3 s/p TORI-s 10/16/24 [id number] RON [facility] [address] [facility] [address] [place] [address] 11/17/2024 08:51:00 11/17/2024 09:41:49 Disorder of function of stomach 715416640 K31.89 Long discussion with patient regarding fatigue [...] call for any worsening symptoms Essential hypertension 13527776 I10 Stop monitor and discussed with PCP Impaired g lucose tolerance 4554540 R73.03 History of gastrectomy 607739594 Z90.3 We discussed diet and the importance [...] any vitamin deficienci es. At [facility] ed risk of nutritional deficit 693027276 Z91.89 Severe obesity 970757091 1 [address]104 E66.813 E66.01 Z68.[id number] [facility] S[facility] [address] [facility] [address] [facility] [place], [place] [address] 11/17/2024 09:37:00 11/17/2024 10:29:59 Diet education 11080594 Z71.3 [id number] RON Azar [facility] [address] [facility] [address] [place], [place] [address] 12/01/2024 09:40:04 12/01/2024 10:22:02 Nausea and vomiting 64304345 R11.2 Long discussion with patient regarding fatigue [...] has been resulted Nutritiona l deficiency state 30903277 E63.9 Encouraged patient see focus on p.o. intake. Advised she continue small frequent sips of protein drinks. History of gastrectomy 931394498 Z90.3 s/p Tori-s 10/16/24 with continued struggles including nausea vomiting p.o. intake.Carmen thorne had upper GIPatient will be scheduled for upper endoscopy for further evaluation Epigastric pain 99949121 R10.13 Advised patient to continue omeprazole . [...] up with patient after EGD has been resulted.Alexander andrés is advised to go to this [place] ED for any acute worsening symptoms Health Concerns Section Related Observation LastModified by Organization Detai ls LastModified Time None Recorded Concern Status LastModified by Organization Details LastModified Time None Recorded Payers Encounter Date Sequence Insurance Name Policy Number Policy Sanchez Covered Member ID Sanchez Member ID Guarantor Name 12/01/[address] [facility] ([id number] Penelope Christina [id number] Penelope Christina Notes Date Note Type Note Provider Name and Address Organization Details Recorded Time 12/01/2024 text/html Patient presents today for sick visit s/p Tori-s 10/16// UGI (Read as [facility]) No stricture identified no hiatal hernia normal [...] to return to work. 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
--- OUTSIDE RECORDS SUMMARY | 2024-12-14 15:04 | XMS_ITS | Continuity of Care Document ---
Author Organization [place] - [facility] Bariatrics and Adv Surg Address [address] [place] [address] Care Team Providers Care Theatrical Dresser Name Role Phone KARLOS CHESTER Primary Care Provider [phone] Assessment Encounter Date Assessment Date Assessment LastModified [...] understand this plan and agree to comply. [email or web address] Not available 10/24/2024 07:57:27 Plan of Treatment Reminders Order Date Submit [...] ast PO No observ ation record ed. Psychiatric [address], [place], [address], 11/14/2024 15:11:14 11/11/19 25 11/10/2024 RF, upper gastr ointe yadira l tract , w/ air, w/ contr ast PO No observ ation record ed. [facility] (Scheduling) [address], [place], [address], 11/14/2024 15:11:15 11/11/19 25 11/10/2024 RF, upper gastr ointe yadira l tract , w/ air, w/ contr ast PO No observ ation record ed. [email or web address] [facility] (Scheduling) [address], [place], [address], 11/10/2024 14:58:54 Result Notes None recorded. Problems Name Problem SNOMED Code Status Onset Date Resolution Date Notes Provider Name and Address Organization Details Recorded Time Essential hypertensi on 44781871 Active 2023 ANAIS Azar [address], [place], [address] , [facility] & [place] 12:30:28 Obesity 022533641 Active [address], [place], [address] , [facility] & [place] 4 12:30:50 Disorder of function of stomach 581675245 Active [address], [place], [address] , [place] [facility] - [place] & [place] 4 12:30:50 Impaired glucose tolerance 0031521 Active [address], [place], [address] , [place] [facility] - [place] & [place] 4 12:31:02 Postoperat nicholas pain 997849975 Active [address], [place], [address] , [place] [facility] - [place] & [place] 5 08:04:37 Contact dermatitis 20111914 Active [address], [place], [address] , [place] [facility] [place] & [place] 5 10:32:01 Nausea 126794895 Active [address], [place], [address] , [place] [facility] [place] & [place] 5 09:06:20 Nausea and vomiting 82705898 Active [address], [place], [address] , [place] [facility] & [place] 5 10:19:41 Bilious vomiting 23122854 Active [address], [place], [address] , [place] [facility] [place] & [place] 5 09:06:37 Mild dehydratio n 1647571354227 Active [address], [place], [address] , [place] [facility] [place] & [place] 5 09:09:44 Intentiona l weight loss 951678930 Active 2024 ANAIS Azar [address], [place], [address] , [place] [facility] & [place] 5 09:06:38 Body mass index 40+ - severely obese 852887167 Active [address], [place], [address] , [place] [facility] & [place] 5 09:07:05 Severe obesity 8348334802206 4 [address], [place], [address] , [facility] - [facility] & [place] 5 09:07:24 Nutritiona l deficiency state 12839673 Active [address], [place], [address] , [place] [facility] & [place] 5 10:04:26 Epigastric pain 82916357 Active [address], [place], [address] , [facility] - [facility] & [place] 5 10:16:35 Paresthesi a of upper limb 68384738 Active [address], [place], [address] , [place] [facility] & [place] 4 15:38:11 Problem Notes None recorded. Procedures Surgical History Date Name Laterality Status Provider Name and Address Organization Details Recorded Time 10/16/19 25 procedure on duodenum completed Parris Torres [place] - [facility] & [place] 11/09/2024 08:47:34 12/09/19 24 EMG/ Nerve Conduction Study completed DO [address], [place], [address], [place] [facility] & [place] 12/09/2023 15:38:04 Cholecystectomy completed ANAIS Azar [address] [facility], [place], [address], [facility] - [facility] - [place] & [place] 07/04/2024 12:57:53 extraction of wisdom tooth completed Parris Torres [place] [facility] & [place] 07/03/2024 15:07:44 [place] [facility] [place] [facility] [place] 07/03/2024 15:07:52 procedure on ganglion cyst completed Stephanie Castro [place] - [facility] & [place] 10/04/2024 07:53:08 Imaging Results None recorded. Procedure [...] Updated DateTime 5 170.18 cm 44.4 kg/m2 241729. 44 g 97.7 [degF] 125 /min 144 mm[Hg] 99 mm[Hg] Stephanie Castro [place] - [facility] - [place] & [place] 5 08:01:28 Social History Question Answer Notes LastModified by Organizat ion Details LastModified Time Tobacco Smoking Status Never Smoker Parris Torres [facility], [place] - [facility] & [place] 07/03/2024 15:12:10 What Is Your Level Of Alcohol Consumption? Occasional [email or web address] Information not available 07/03/2024 What Is Your Level Of Caffeine Consumption? Occasional [email or web address] Information not available 07/04/2024 Do You Use Any Illicit Or Recreational Drugs? No [email or web address] Information not available 07/03/2024 Sex: Female Functional Status None recorded. Mental Status None recorded. Family History Relationship Description Onset Age of this Age Resolved Age Notes LastModified by Organization Details LastModified Time Father Hypertensive disorder [email or web address] Not available 06/2024 15:12:25 Father Hypercholest erolemia [email or web address] Not available 06/2024 15:12:51 Mother Hypertensive disorder Not available 06/2024 15:12:25 Mother Hypercholest [email or web address] Not available 06/2024 15:12:51 Mother Asthma [email or web address] Not availabl e 07/04/2024 13:49:15 Mother Chronic obstructive pulmonary disease [email or web address] Not available 06/2024 15:13:21 Maternal Grandmother Hypertensive disorder [email or web address] Not available 06/2024 15:12:25 Maternal Grandmother Chronic obstructive pulmonary disease [email or web address] Not available 06/2024 15:13:21 Maternal Grandfather Malignant tumor of lung [email or web address] Not available 06/23 13:49:15 Brother Asthma [email or web address] Not availab le 07/04/2024 13:49:15 Sister Asthma Not availabl e 07/04/2024 13:49:15 Medical History [...] SNOMED-CT Code Diagnosis ICD10 Code Diagnosis Note [id number] KALI HAMILTON MD [facility] n Bariatric s and Adv Surg [address] [place] [address] 10/04/2024 07:39:52 10/04/2024 14:13:26 Morbid obesity 301616425 E66.01 Pre-surger y evaluation 167783336 Z01.818 Postoperative pain 41911 9007 G89.18 pt will continue pregabalin post operativel y Essential hypertension 77830073 I10 Impaired g lucose tolerance 2837727 R73.03 [id number] ANAIS Azar [facility] Bariatric s and Adv Surg [address] [place] [address] 10/24/2024 07:55:40 10/24/2024 10:33:45 History of gastrectomy 603313078 Z90.3 Encouraged patient to continue focus on intake of adequate protein and hydration. Advised minimum 70 g of protein and 800 calories. Patient is to continue incentive spirometer for another 5-7 days Encouraged ambulation Patient is to start bariatric approved vitamin Follow up 3 weeks Contact dermatitis 55734 004 L25.9 Likely from surgical glue. Patient advised to keep area clean. She may apply Benadryl cream or calamine lotion. Advised she take Zyrtec q.a.m. and Benadryl q.p.m.. Advised she avoid scratching these areas. She is report any worsening symptoms. Health Concerns Section Related Observation LastModified by Organization Detai ls LastModified Time None Recorded Concern Status LastModified by Organization Details LastModified Time None Recorded Payers Encounter Date Sequence Insurance Name Policy Number Policy Sanchez Covered Member ID Sanchez Member ID Guarantor Name 10/24/2024 1 [facility] ([place] REPLAC[place] - HMO) MARY Christina [id number] Penelope Christina Notes Date Note Type Note Provider Name and Address Organization Details Recorded Time 10/24/2024 text/html Patient presents for 1wk Post-Op Check s/p Jem-s 10/16/24 Patient is doing well. Tolerating PO [...] quality of life after Weight loss Surgery. ANAIS Azar [address], [place], [address], [facility] - [place] - [place] & [place] 10/24/2024 10:34:38 OBGyn Episode No OBEpisode recorded.
== END 2024-12-14 23:59 | disposition home or self-care (01) ==
LOC: RAD 15:02
PROVIDERS: PCP Nurse Practitioner Family; Visit Provider Obstetrics & Gynecology
DX: O36.80X0 Pregnancy with inconclusive fetal viability, not applicable or unspecified (principal); O21.9 Vomiting of pregnancy, unspecified; Z3A.11 11 weeks gestation of pregnancy
CPT/HCPCS: 76801

== ENCOUNTER 2024-12-28 12:44 | Outpatient (CLI) | payer OTHER, SELFPAY ==
--- OUTSIDE RECORDS SUMMARY | 2024-12-28 12:46 | XMS_ITS | Data Portability ---
Author Organization [facility] - [facility] & MONA Berry ADMIN Address [address] [place] [id number] Care Team Providers Care Road Boss Name Role Phone KARLOS CHESTER Primary Care Provider Assessment Encounter Date Assessment Date Assessment LastModified by Organization Details LastModified Time 11/17/2024 11/17/2024 A total of 10 minutes was spent with the pt today. ??? Recommendations: 1. Try going to the [employer] tree to find cheaper items to try [...] Denied further questions/concerns . Pt reports that perinatal social worker did reach out to her but there are not any other options available in her area. Provided pt with some ensure clear samples because she can keep those down. ??? RDN will monitor weight loss, labs, meds, and lifestyle modifications. Will f/up as scheduled or PRN. [email or web address] Not available 11/17/2024 09:58:18 12/27/2024 12/27/2024 A total of 15 minutes was spent with the pt today. Total weight gain for BMI >30 11-18 lbs ??? Recommendations: 1. Eat fix to six small meals and snacks daily 2. Focus on getting a protein with each meal and snack 3. Add in 2 cups of cow's milk daily 4. No liquids with meals 5. Increase calories to 350 per day starting at week 14 6. Aim for 90+ grams of protein and 64 fluid oz, try to get in 2187-8071 calories starting now 7. Use [employer] dot to track 8. Take vitamins as directed by OB 9. Choose higher calorie protein supplements with 350 or 500 kcal 10. F/U every 6 weeks ??? Pt doing well overall. Addressed concerns today. Pt was reassured at today's visit. Pt verbally agreed to recommendations and goals. Denied further questions/concerns . ??? RDN will monitor weight loss, labs, meds, and lifestyle modifications. Will f/up as scheduled or PRN. [email or web address] Not available 12/27/2024 11:07:23 Plan of Treatment Reminders Order Date Submit Date Provider Last Modified By Organization Details Last Modified Time Details Appointments OV EST 20 2024 10:00A M RON Azar Not available Not available Not available OV EST 20 2024 10:20A M IS[address] Not available Not available Not available OV EST 20 2024 01:20P M RON Azar Not available Not available Not available OV EST 20 2024 01:40P M ISRAEL [address] RD Not available Not available Not available Lab magnesium , serum or plasma 2024 025 [facility], [address] [place] [address], [address], 12/08/2024 04:11:53 phosphoru s, serum or plasma 2024 025 [facility], [address] [place] [address], [address], 12/08/2024 04:11:53 CBC w/ auto diff 2024 025 [facility], [address], [address], [place], [address], 12/02/2024 03:38:32 CMP, serum or plasma 2024 025 [facility], [address], [address], [place], [address], 12/02/2024 03:38:33 folate, serum 2024 025 [facility], [address], [address], [place], [address], 11/24/2024 18:36:58 prealbumi n, serum 2024 025 [facility], [address], [address], [place], [address], 11/24/2024 18:37:01 thiamine, QN, blood 2024 025 [facility], [address], [address], [place], [address], 11/24/2024 18:37:00 methylmal jeffrey, QN, serum or plasma 2024 025 [facility], [address], [address], [place], [address], 11/24/2024 18:37:00 CBC w/ auto diff 2024 025 [facility], [address], [address], [place], [address], 11/24/2024 18:36:56 CMP, serum or plasma 2024 025 [facility], [address], [address], [place], [address], 11/24/2024 18:36:57 iron + TIBC + ferritin, serum 2024 025 [facility], [address], [address], [place], [address], 11/24/2024 18:36:55 vitamin D, 25-hydrox y, total, serum 2024 025 [facility], [address], [address], [place], [address], 11/24/2024 18:36:59 vitamin E, serum 2024 025 [facility], [address], [address], [place], [address], 11/24/2024 18:36:57 vitamin A (retinol) , serum 2024 025 [facility], [address], [address], [place], [address], 11/24/2024 18:36:59 TSH + free T4, serum 2024 025 [facility], [address], [address], [place], [address], 11/24/2024 18:36:55 Referral None recorded. Procedures None recorded. Surgeries esophagog astroduod enoscopy (SURG) 2024 025 earl Rubi MD, [address], [address], [place], [address], 12/15/2024 11:34:18 Imaging None recorded. Medication Orders thiamine HCl (vitamin B1) 100 mg/mL injection solution 2024 025 [email or web address] Not available 12/27/2024 09:50:37 cyanocoba yves (vit B-12) 1,000 mcg/mL injection solution 2024 025 [email or web address] Not available 12/27/2024 09:50:09 Compazine 5 mg tablet 2024 025 [facility] 595, [address], [address], 12/01/2024 10:20:25 ondansetr on 8 mg disintegr ating tablet 2024 025 [facility], [address], [place], [address], 11/17/2024 09:24:21 Patient TargetsNo targets recorded. Patient InstructionsNo instructions recorded. Reason for Referral None Reported. Results Created Date Observation Date Name Description Value Unit Range Abnormal Flag Note LastModifiedBy Organization Detail LastModifiedTime 11/18/1911/18/2024 FE+TI BC+FE R iron bind.cap.(TI BC) 310 ug/dL 250-45 0 normal Not Available [facility] ([facility]) [address] [place], [address], 11/24/2024 18:36:54 11/18/1911/18/2024 FE+TI BC+FE R UIBC 230 ug/dL 131-42 5 normal Not Available [facility] ([facility]) [address] [place], [address], 11/24/2024 18:36:54 11/18/1911/18/2024 FE+TI BC+FE R iron 80 ug/dL 27-159 normal Not Available [facility] ([facility]) [address] [place], [address], 11/24/2024 18:36:54 11/18/1911/18/2024 FE+TI BC+FE R iron saturation 26 % 15-55 normal Not Available [facility] ([facility]) [address] [place], [address], 11/24/2024 18:36:54 11/18/1911/18/2024 FE+TI BC+FE R ferritin 482 NG/mL 15-150 above high normal Not Available [facility] ([facility]) [address] [place], [address], 11/24/2024 18:36:54 11/18/1911/18/2024 TSH+F REE T4 TSH 2.210 uIU/m L 0.450- 4.500 normal Not Available [facility] ([facility]) [address] [place], [address], 11/24/2024 18:36:55 11/18/1911/18/2024 TSH+F REE T4 T4,free(dire ct) 1.44 NG/dL 0.82-1 .77 normal Not Available [facility] ([facility]) [address] [place], [address], 11/24/2024 18:36:55 11/18/1911/18/2024 CBC WITH DIFFE RENTI AL/PL ATELE T WBC 5.0 x10e3 /uL 3.4-10 .8 normal Not Available [facility] ([facility]) [address] [place], [address], 11/24/2024 18:36:56 11/18/1911/18/2024 CBC WITH DIFFE RENTI AL/PL ATELE T RBC 5.41 x10e6 /uL 3.77-5 .28 above high normal Not Available [facility] ([facility]) [address] [place], [address], 11/24/2024 18:36:56 11/18/1911/18/2024 CBC WITH DIFFE RENTI AL/PL ATELE T hemoglobin 15.3 g/dL 11.1-1 5.9 normal Not Available [facility] ([facility]) [address] [place], [address], 11/24/2024 18:36:56 11/18/1911/18/2024 CBC WITH DIFFE RENTI AL/PL ATELE T hematocrit 45.0 % 34.0-4 6.6 normal Not Available [facility] ([facility]) [address] [place], [address], 11/24/2024 18:36:56 11/18/19 25 11/18/2024 CBC WITH DIFFE RENTI AL/PL ATELE T MCV 83 fL 79-97 normal Not Available [facility] ([facility]) [address] [place], [address], 11/24/2024 18:36:56 11/18/19 25 11/18/2024 CBC WITH DIFFE RENTI AL/PL ATELE T MCH 28.3 pg 26.6-3 3.0 normal Not Available [facility] ([facility]) [address] [place], [address], 11/24/2024 18:36:56 11/18/19 25 11/18/2024 CBC WITH DIFFE RENTI AL/PL ATELE T MCHC 34.0 g/dL 31.5-3 5.7 normal Not Available [facility] ([facility]) [address] [place], [address], 11/24/2024 18:36:56 11/18/19 25 11/18/2024 CBC WITH DIFFE RENTI AL/PL ATELE T RDW 15.0 % 11.7-1 5.4 Not Available [facility] ([facility]) [address] [place], [address], 11/24/2024 18:36:56 11/18/19 25 11/18/2024 CBC WITH DIFFE RENTI AL/PL ATELE T platelets 168 x10e3 /uL 150-45 0 normal Not Available [facility] ([facility]) [address] [place], [address], 11/24/2024 18:36:56 11/18/19 25 11/18/2024 CBC WITH DIFFE RENTI AL/PL ATELE T neutrophils 58 % not estab. normal Not Available [facility] ([facility]) [address] [place], [address], 11/24/2024 18:36:56 11/18/19 25 11/18/2024 CBC WITH DIFFE RENTI AL/PL ATELE T lymphs 32 % not estab. normal Not Available [facility] ([facility]) [address] [place], [address], 11/24/2024 18:36:56 11/18/19 25 11/18/2024 CBC WITH DIFFE RENTI AL/PL ATELE T monocytes 9 % not estab. normal Not Available [facility] ([facility]) [address] [place], [address], 11/24/2024 18:36:56 11/18/19 25 11/18/2024 CBC WITH DIFFE RENTI AL/PL ATELE T eos 1 % not estab. normal Not Available [facility] ([facility]) [address] [facility], [place], [address], 11/24/2024 18:36:56 11/18/19 25 11/18/2024 CBC WITH DIFFE RENTI AL/PL ATELE T basos 0 % not estab. normal Not Available [facility] ([facility]) [address] [place], [address], 11/24/2024 18:36:56 11/18/19 25 11/18/2024 CBC WITH DIFFE RENTI AL/PL ATELE T immature cells MARQUETRY WORKER Not Available [facility] ([facility]) [address] [place], [address], 11/24/2024 18:36:56 11/18/19 25 11/18/2024 CBC WITH DIFFE RENTI AL/PL ATELE T neutrophils (absolute) 2.9 x10e3 /uL 1.4-7. 0 normal Not Available [facility] ([facility]) [address] [place], [address], 11/24/2024 18:36:56 11/18/19 25 11/18/2024 CBC WITH DIFFE RENTI AL/PL ATELE T lymphs (absolute) 1.6 x10e3 /uL 0.7-3. 1 normal Not Available [facility] ([facility]) [address] [facility], [place], [address], 11/24/2024 18:36:56 11/18/19 25 11/18/2024 CBC WITH DIFFE RENTI AL/PL ATELE T monocytes(ab solute) 0.5 x10e3 /uL 0.1-0. 9 normal Not Available [facility] ([facility]) [address] [facility], [place], [address], 11/24/2024 18:36:56 11/18/19 25 11/18/2024 CBC WITH DIFFE RENTI AL/PL ATELE T eos (absolute) 0.0 x10e3 /uL 0.0-0. 4 normal Not Available [facility] ([facility]) [address] [facility], [place], [address], 11/24/2024 18:36:56 11/18/19 25 11/18/2024 CBC WITH DIFFE RENTI AL/PL ATELE T baso (absolute) 0.0 x10e3 /uL 0.0-0. 2 normal Not Available [facility] ([facility]) [address] [facility], [place], [address], 11/24/2024 18:36:56 11/18/19 25 11/18/2024 CBC WITH DIFFE RENTI AL/PL ATELE T immature granulocytes 0 % not estab. Not Available [facility] ([facility]) [address] [facility], [place], [address], 11/24/2024 18:36:56 11/18/19 25 11/18/2024 CBC WITH DIFFE RENTI AL/PL ATELE T immature grans (abs) 0.0 x10e3 /uL 0.0-0. 1 Not Available [facility] ([facility]) [address] [facility], [place], [address], 11/24/2024 18:36:56 11/18/19 25 11/18/2024 CBC WITH DIFFE RENTI AL/PL ATELE T NRBC MARQUETRY WORKER Not Available [facility] ([facility]) [address] [facility], [place], [address], 11/24/2024 18:36:56 11/18/19 25 11/18/2024 CBC WITH DIFFE KLAUS BENDER/KELLE ATELE T hematology comments: MARQUETRY WORKER Not Available [facility] ([facility]) [address] [facility], [place], [address], 11/24/2024 18:36:56 11/18/19 25 11/18/2024 COMP. METAB OLIC PANEL (14) glucose 106 mg/dL 70-99 above high normal Not Available [facility] ([facility]) [address] [facility], [place], [address], 11/24/2024 18:36:57 11/18/19 25 11/18/2024 COMP. METAB OLIC PANEL (14) BUN 6 mg/dL 6-20 normal Not Available [facility] ([facility]) [address] [facility], [place], [address], 11/24/2024 18:36:57 11/18/19 25 11/18/2024 COMP. METAB OLIC PANEL (14) creatinine 0.56 mg/dL 0.57-1 .00 below low normal Not Available [facility] ([facility]) [address] [facility], [place], [address], 11/24/2024 18:36:57 11/18/19 25 11/18/2024 COMP. METAB OLIC PANEL (14) eGFR 129 mL/mi n/1.7 3 >59 normal Not Available [facility] ([facility]) [address] [facility] [place], [address], 11/24/2024 18:36:57 11/18/19 25 11/18/2024 COMP. METAB OLIC PANEL (14) BUN/creatini ne ratio 11 9-23 normal Not Available [facility] ([facility]) [address] [facility], [place], [address], 11/24/2024 18:36:57 11/18/19 25 11/18/2024 COMP. METAB OLIC PANEL (14) sodium 135 mmol/ L 134-14 4 normal Not Available [facility] ([facility]) [address] [place], [address], 11/24/2024 18:36:57 11/18/19 25 11/18/2024 COMP. METAB OLIC PANEL (14) potassium 3.7 mmol/ L 3.5-5. 2 normal Not Available [facility] ([facility]) [address] [place], [address], 11/24/2024 18:36:57 11/18/19 25 11/18/2024 COMP. METAB OLIC PANEL (14) chloride 98 mmol/ L 96-106 normal Not Available [facility] ([facility]) [address] [place], [address], 11/24/2024 18:36:57 11/18/19 25 11/18/2024 COMP. METAB OLIC PANEL (14) carbon dioxide, total 18 mmol/ L 20-29 below low normal Not Available [facility] ([facility]) [address] [place], [address], 11/24/2024 18:36:57 11/18/19 25 11/18/2024 COMP. METAB OLIC PANEL (14) calcium 9.6 mg/dL 8.7-10 .2 normal Not Available [facility] ([facility]) [address] [place], [address], 11/24/2024 18:36:57 11/18/19 25 11/18/2024 COMP. METAB OLIC PANEL (14) protein, total 7.1 g/dL 6.0-8. 5 normal Not Available [facility] ([facility]) [address] [place], [address], 11/24/2024 18:36:57 11/18/19 25 11/18/2024 COMP. METAB OLIC PANEL (14) albumin 4.3 g/dL 4.0-5. 0 normal Not Available [facility] ([facility]) [address] [facility] [place] [place], [address], 11/24/2024 18:36:57 11/18/19 25 11/18/2024 COMP. METAB OLIC PANEL (14) globulin, total 2.8 g/dL 1.5-4. 5 Not Available [facility] ([facility]) [address] [facility] [place] [place], [address], 11/24/2024 18:36:57 11/18/19 25 11/18/2024 COMP. METAB OLIC PANEL (14) bilirubin, total 0.8 mg/dL 0.0-1. 2 normal Not Available [facility] ([facility]) [address] [facility] [place] [place], [address], 11/24/2024 18:36:57 11/18/19 25 11/18/2024 COMP. METAB OLIC PANEL (14) alkaline phosphatase 91 IU/L 44-121 normal Not Available [facility] ([facility]) [address] [facility] [place], [address], 11/24/2024 18:36:57 11/18/19 25 11/18/2024 COMP. METAB OLIC PANEL (14) AST (SGOT) 40 IU/L 0-40 normal Not Available [facility] ([facility]) [address] [facility] [place], [address], 11/24/2024 18:36:57 11/18/19 25 11/18/2024 COMP. METAB OLIC PANEL (14) ALT (SGPT) 48 IU/L 0-32 above high normal Not Available [facility] ([facility]) [address] [facility] [place] [place], [address], 11/24/2024 18:36:57 11/18/19 25 11/24/2024 VITAM IN E vitamin E(alpha tocopherol) 5.6 mg/L 5.9-19 .4 below low normal Not Available [facility] ([facility]) [address] [facility], [place], [address], 11/24/2024 18:36:57 11/18/19 25 11/24/2024 VITAM IN [...] in E defic ient. Not Available [facility] ([facility]) [address] [facility], [place], [address], 11/24/2024 18:36:57 11/18/19 25 11/18/2024 FOLAT E (FOLI C ACID) , SERUM folate (folic acid), serum 6.5 NG/mL >3.0 normal A serum folat e matt ntrat ion of less than 3.1 ng/mL is consi dered to repre sent clini abby defic iency . Not Available [facility] ([facility]) [address] [facility], [place], [address], 11/24/2024 18:36:58 11/18/19 25 11/24/2024 VITAM IN A, SERUM vitamin A 20.4 [...] Drug Admin istra tion. Not Available [facility] ([facility]) [address] [facility], [place], [address], 11/24/2024 18:36:58 11/18/19 25 11/18/2024 VITAM IN [...] IOM (Inst itute of Medic ine). 2009. Brucea ry refer ence isabel es for calci um and D. Lucretia pleitez [place]: The [facility]ade [facility] Press . 2. Reinaldo moreno [place], Eileen mccann [place], David off-F errar i LILLY, et al. Evalu ation , treat ment, and preve ntion of vitam in D defic iency : an Endoc rine Socie ty clini abby pract ice guide line. JCEM. 2010; 96(7) :1911 -30. Not Available [facility] ([facility]) [address] [facility], [place], [address], 11/24/2024 18:36:59 11/18/19 25 11/23/2024 VITAM IN B1 (THIA MINE) , BLOOD vit. B1, whole blood 82.0 nmol/ L 66.5-2 00.0 Not Available [facility] ([facility]) [address] [facility], [place], [address], 11/24/2024 18:37:00 11/18/19 25 11/22/2024 METHY LMALO JAREK ACID, SERUM methylmaloni c acid, serum 60 nmol/ L 0-378 Not Available [facility] ([facility]) [address] [facility], [place], [address], 11/24/2024 18:37:00 11/18/19 25 11/18/2024 PREAL BUMIN prealbumin 15 mg/dL 14-35 Not Available [facility] ([facility]) [address] [facility], [place], [address], 11/24/2024 18:37:01 12/02/19 25 12/02/2024 CBC WITH DIFFE RENTI AL/PL ATELE T WBC 8.4 x10e3 /uL 3.4-10 .8 normal Not Available [facility] ([facility]) [address] [facility], [place], [address], 12/02/2024 03:38:32 12/02/19 25 12/02/2024 CBC WITH DIFFE RENTI AL/PL ATELE T RBC 4.94 x10e6 /uL 3.77-5 .28 normal Not Available [facility] ([facility]) [address] [place], [address], 12/02/2024 03:38:32 12/02/19 25 12/02/2024 CBC WITH DIFFE RENTI AL/PL ATELE T hemoglobin 14.3 g/dL 11.1-1 5.9 normal Not Available [facility] ([facility]) [address] [facility], [place], [address], 12/02/2024 03:38:32 12/02/19 25 12/02/2024 CBC WITH DIFFE RENTI AL/PL ATELE T hematocrit 41.7 % 34.0-4 6.6 normal Not Available [facility] ([facility]) [address] [place], [address], 12/02/2024 03:38:32 12/02/19 25 12/02/2024 CBC WITH DIFFE RENTI AL/PL ATELE T MCV 84 fL 79-97 normal Not Available [facility] ([facility]) [address] [facility], [place], [address], 12/02/2024 03:38:32 12/02/19 25 12/02/2024 CBC WITH DIFFE RENTI AL/PL ATELE T MCH 28.9 pg 26.6-3 3.0 normal Not Available [facility] ([facility]) [address] [facility], [place], [address], 12/02/2024 03:38:32 12/02/19 25 12/02/2024 CBC WITH DIFFE RENTI AL/PL ATELE T MCHC 34.3 g/dL 31.5-3 5.7 normal Not Available [facility] ([facility]) [address] [facility], [place], [address], 12/02/2024 03:38:32 12/02/19 25 12/02/2024 CBC WITH DIFFE RENTI AL/PL ATELE T RDW 14.5 % 11.7-1 5.4 Not Available [facility] ([facility]) [address] [place], [address], 12/02/2024 03:38:32 12/02/19 25 12/02/2024 CBC WITH DIFFE RENTI AL/PL ATELE T platelets 171 x10e3 /uL 150-45 0 normal Not Available [facility] ([facility]) [address] [place], [address], 12/02/2024 03:38:32 12/02/19 25 12/02/2024 CBC WITH DIFFE RENTI AL/PL ATELE T neutrophils 72 % not estab. normal Not Available [facility] ([facility]) [address] [place], [address], 12/02/2024 03:38:32 12/02/19 25 12/02/2024 CBC WITH DIFFE RENTI AL/PL ATELE T lymphs 21 % not estab. normal Not Available [facility] ([facility]) [address] [place], [address], 12/02/2024 03:38:32 12/02/19 25 12/02/2024 CBC WITH DIFFE RENTI AL/PL ATELE T monocytes 6 % not estab. normal Not Available [facility] ([facility]) [address] [facility], [place], [address], 12/02/2024 03:38:32 12/02/19 25 12/02/2024 CBC WITH DIFFE RENTI AL/PL ATELE T eos 1 % not estab. normal Not Available [facility] ([facility]) [address] [place], [address], 12/02/2024 03:38:32 12/02/19 25 12/02/2024 CBC WITH DIFFE RENTI AL/PL ATELE T basos 0 % not estab. normal Not Available [facility] ([facility]) [address] [facility], [place], [address], 12/02/2024 03:38:32 12/02/19 25 12/02/2024 CBC WITH DIFFE RENTI AL/PL ATELE T immature cells MARQUETRY WORKER Not Available [facility] ([facility]) [address] [place], [address], 12/02/2024 03:38:32 12/02/19 25 12/02/2024 CBC WITH DIFFE RENTI AL/PL ATELE T neutrophils (absolute) 6.0 x10e3 /uL 1.4-7. 0 normal Not Available [facility] ([facility]) [address] [place], [address], 12/02/2024 03:38:32 12/02/19 25 12/02/2024 CBC WITH DIFFE RENTI AL/PL ATELE T lymphs (absolute) 1.8 x10e3 /uL 0.7-3. 1 normal Not Available [facility] ([facility]) [address] [place], [address], 12/02/2024 03:38:32 12/02/19 25 12/02/2024 CBC WITH DIFFE RENTI AL/PL ATELE T monocytes(ab solute) 0.5 x10e3 /uL 0.1-0. 9 normal Not Available [facility] ([facility]) [address] [facility], [place], [address], 12/02/2024 03:38:32 12/02/19 25 12/02/2024 CBC WITH DIFFE RENTI AL/PL ATELE T eos (absolute) 0.1 x10e3 /uL 0.0-0. 4 normal Not Available [facility] ([facility]) [address] [place], [address], 12/02/2024 03:38:32 12/02/19 25 12/02/2024 CBC WITH DIFFE RENTI AL/PL ATELE T baso (absolute) 0.0 x10e3 /uL 0.0-0. 2 normal Not Available [facility] ([facility]) [address] [place], [address], 12/02/2024 03:38:32 12/02/19 25 12/02/2024 CBC WITH DIFFE RENTI AL/PL ATELE T immature granulocytes 0 % not estab. Not Available [facility] ([facility]) [address] [place], [address], 12/02/2024 03:38:32 12/02/19 25 12/02/2024 CBC WITH DIFFE RENTI AL/PL ATELE T immature grans (abs) 0.0 x10e3 /uL 0.0-0. 1 Not Available [facility] ([facility]) [address] [place], [address], 12/02/2024 03:38:32 12/02/19 25 12/02/2024 CBC WITH DIFFE RENTI AL/PL ATELE T NRBC MARQUETRY WORKER Not Available [facility] ([facility]) [address] [facility], [place], [address], 12/02/2024 03:38:32 12/02/19 25 12/02/2024 CBC WITH DIFFE KLAUS AL/KELLE ALVARES T hematology comments: MARQUETRY WORKER Not Available [facility] ([facility]) [address] [facility], [place], [address], 12/02/2024 03:38:32 12/02/19 25 12/02/2024 COMP. METAB OLIC PANEL (14) glucose 96 mg/dL 70-99 normal Not Available [facility] ([facility]) [address] [facility] [place] [place], [address], 12/02/2024 03:38:33 12/02/19 25 12/02/2024 COMP. METAB OLIC PANEL (14) BUN 5 mg/dL 6-20 below low normal Not Available [facility] ([facility]) [address] [facility], [place], [address], 12/02/2024 03:38:33 12/02/19 25 12/02/2024 COMP. METAB OLIC PANEL (14) creatinine 0.53 mg/dL 0.57-1 .00 below low normal Not Available [facility] ([facility]) [address] [facility], [place], [address], 12/02/2024 03:38:33 12/02/19 25 12/02/2024 COMP. METAB OLIC PANEL (14) eGFR 131 mL/mi n/1.7 3 >59 normal Not Available [facility] ([facility]) [address] [facility], [place], [address], 12/02/2024 03:38:33 12/02/19 25 12/02/2024 COMP. METAB OLIC PANEL (14) BUN/creatini ne ratio 9 9-23 normal Not Available [facility] ([facility]) [address] [facility], [place], [address], 12/02/2024 03:38:33 12/02/19 25 12/02/2024 COMP. METAB OLIC PANEL (14) sodium 136 mmol/ L 134-14 4 normal Not Available [facility] Lab) [address] [facility] [place], [address], 12/02/2024 03:38:33 12/02/19 25 12/02/2024 COMP. METAB OLIC PANEL (14) potassium 4.5 mmol/ L 3.5-5. 2 normal Not Available [facility] ([facility]) [address] [facility] [place], [address], 12/02/2024 03:38:33 12/02/19 25 12/02/2024 COMP. METAB OLIC PANEL (14) chloride 101 mmol/ L 96-106 normal Not Available [facility] ([facility]) [address] [facility] [place], [address], 12/02/2024 03:38:33 12/02/19 25 12/02/2024 COMP. METAB OLIC PANEL (14) carbon dioxide, total 20 mmol/ L 20-29 normal Not Available [facility] ([facility]) [address] [place], [address], 12/02/2024 03:38:33 12/02/19 25 12/02/2024 COMP. METAB OLIC PANEL (14) calcium 9.5 mg/dL 8.7-10 .2 normal Not Available [facility] ([facility]) [address] [place], [address], 12/02/2024 03:38:33 12/02/19 25 12/02/2024 COMP. METAB OLIC PANEL (14) protein, total 6.6 g/dL 6.0-8. 5 normal Not Available [facility] ([facility]) [address] [facility] [place], [address], 12/02/2024 03:38:33 12/02/19 25 12/02/2024 COMP. METAB OLIC PANEL (14) albumin 4.1 g/dL 4.0-5. 0 normal Not Available [facility] ([facility]) [address] [place], [address], 12/02/2024 03:38:33 12/02/19 25 12/02/2024 COMP. METAB OLIC PANEL (14) globulin, total 2.5 g/dL 1.5-4. 5 Not Available [facility] ([facility]) [address] [place], [address], 12/02/2024 03:38:33 12/02/19 25 12/02/2024 COMP. METAB OLIC PANEL (14) bilirubin, total 1.6 mg/dL 0.0-1. 2 above high normal Not Available [facility] ([facility]) [address] [place], [address], 12/02/2024 03:38:33 12/02/19 25 12/02/2024 COMP. METAB OLIC PANEL (14) alkaline phosphatase 83 IU/L 44-121 normal Not Available [facility] ([facility]) [address] [place], [address], 12/02/2024 03:38:33 12/02/19 25 12/02/2024 COMP. METAB OLIC PANEL (14) AST (SGOT) 46 IU/L 0-40 above high normal Not Available [facility] ([facility]) [address] [place], [address], 12/02/2024 03:38:33 12/02/19 25 12/02/2024 COMP. METAB OLIC PANEL (14) ALT (SGPT) 59 IU/L 0-32 above high normal Not Available [facility] ([facility]) [address] [place], [address], 12/02/2024 03:38:33 11/11/19 25 11/10/2024 RF, upper gastr ointe yadira l tract , w/ air, w/ contr ast PO No observ ation record ed. [facility] [address], [place], [address], 11/14/2024 15:11:14 11/11/19 25 11/10/2024 RF, upper gastr ointe yadira l tract , w/ air, w/ contr ast PO No observ ation record ed. [facility] (Scheduling) [address], [place], [address], 11/14/2024 15:11:15 11/11/19 25 11/10/2024 RF, upper gastr ointe yadira l tract , w/ air, w/ contr ast PO No observ ation record ed. [email or web address] [facility] (Scheduling) [address], [place], [address], 11/10/2024 14:58:54 Result Notes None recorded. Problems Name Problem SNOMED Code Status Onset Date Resolution Date Notes Provider Name and Address Organization Details Recorded Time Essential hypertStephen L. LaFrance Pharmacyi on 68177449 Active [address], [place], [address] , [facility] [place] 12:30:28 Obesity 477558939 Active [address], [place], [address] , [place] - [facility] [place] 4 12:30:50 Disorder of function of stomach 727607750 Active [address], [place], [address] , [place] - [facility] [place] 4 12:30:50 Impaired glucose tolerance 9590385 Active [address], [place], [address] , [place] [facility] [place] 4 12:31:02 Postoperat nichoals pain 692922791 Active [address], [place], [address] , [place] [facility] [place] [facility] [place] 5 08:04:37 Contact dermatitis 15128743 Active [address], [place], [address] , [place] [facility] [place] [facility] [place] 5 10:32:01 Nausea 140545454 Active [address], [place], [address] , [place] [facility] [place] [facility] [place] 5 09:06:20 Nausea and vomiting 46519666 Active [address], [place], [address] , [place] [facility] [place] [facility] [place] 5 10:19:41 Bilious vomiting 69110453 Active [address], [place], [address] , [place] [facility] [place] [facility] [place] 5 09:06:37 Mild dehydratio n 2259100477627 Active [address], [place], [address] , [place] [facility] [place] [facility] [place] 5 09:09:44 Intentiona l weight loss 333631299 Active [address], [place], [address] , [place] [facility] [place] [facility] [place] 5 09:06:38 Body mass index 40+ - severely obese 157765724 Active [address], [place], [address] , [place] [facility] [place] [facility] [place] 5 09:07:05 Severe obesity 1303801287258 4 Active [address], [place], [address] , [place] [facility] [place] 5 09:07:24 Nutritiona l deficiency state 18778200 Active [address], [place], [address] , [place] [facility] [place] 5 10:04:26 Epigastric pain 54843206 Active [address], [place], [address] , [place] [facility] [place] 5 10:16:35 Gestation period, 13 weeks 50993848 Active [address], [place], [address] , [facility] - [facility] [place] 5 10:26:24 Paresthesi a of upper limb 23918232 Active [address], [place], [address] , [facility] - [facility] [place] 4 15:38:11 Problem Notes None recorded. Procedures Surgical History Date Name Laterality Status Provider Name and Address Organization Details Recorded Time 10/16/19 25 procedure on duodenum completed Parris Torres CT - [facility] [place] 11/09/2024 08:47:34 12/09/19 24 EMG/ Nerve Conduction Study completed DO [address], [place], [address], [place] [facility] [place] 12/09/2023 15:38:04 [address] completed [address], [place], [address], [place] [facility] [place] 07/04/2024 12:57:53 extraction of wisdom tooth completed Parris Torres CT - [facility] [place] 07/03/2024 15:07:44 Tonsillectomy completed Parris Brian [facility] & [place] 07/03/2024 15:07:52 procedure on ganglion cyst completed Stephanie Castro [facility] [place] 10/04/2024 07:53:08 Imaging Results Imaging Date Name Status LastModified by Organization Details LastModified Time 11/10/2024 RF, upper gastrointestinal tract, w/ air, w/ contrast PO completed [facility] [address], [place], [address], 11/14/2024 15:11:14 11/10/2024 RF, upper gastrointestinal tract, w/ air, w/ contrast PO completed [facility] (Scheduling) [address], [place], [address], 11/14/2024 15:11:15 11/10/2024 RF, upper gastrointestinal tract, w/ air, w/ contrast PO completed [email or web address] [place] [address] (Scheduling) [address], [place], [address], 11/10/2024 14:58:54 Procedure Notes None recorded. Medical [...] 1 TABLET BY MOUTH 4 TIMES DAILY 12/27 completed Not Available Not Available Not Available metronidazo le 500 mg tablet TAKE 1 TABLET BY MOUTH TWICE DAILY FOR 7 DAYS 12/27 completed Not Available Not Available Not Available ondansetron 8 mg disintegrat ing tablet DISSOLVE 1 TABLET IN MOUTH TWICE DAILY active Not Available Not Available No t Available thiamine HCl (vitamin B1) 100 mg/mL injection solution 200mg IM today in office 12/27 completed Not Available Not Available Not Available Compazine 5 mg tablet Take 1 tablet 3 times a day by oral route. 2024 active Not Available Not Available Not Avai labmarcelino cyanocobala min (vit B-12) 1,000 mcg/mL injection solution 1ml IM in office today 12/27 completed Not Available Not Available Not Available ferrous sulfate 325 mg (65 mg iron) tablet Take 1 tablet twice a day by oral route. 12/27 completed Not Available Not Available Not Available hydrochloro thiazide 12.5 mg capsule Take [...] completed Not Available Not Available Not Available cefdinir 300 mg capsule TAKE 1 CAPSULE BY MOUTH TWICE DAILY FOR 7 DAYS 12/27 completed Not Available Not Available Not Available metoclopram barry 10 mg tablet TAKE 1 TABLET BY MOUTH EVERY 6 HOURS NEEDED FOR NAUSEA AND VOMITING 12/27 completed Not Available Not Available Not Available oxycodone 5 mg tablet TAKE 1 TABLET BY MOUTH EVERY 6 HOURS NEEDED FOR SEVERE PAIN 07/04 completed Not Available Not Available Not Available azithromyci n 500 mg tablet TAKE 2 TABLETS BY MOUTH A ONE TIME DOSE active Not Available Not Available No t Available nitrofurant oin monohydrate /macrocryst als 100 mg capsule 12/01 completed Not Available Not Available Not Available duloxetine 30 mg capsule,del ayed release 12/27 completed Not Available Not Available Not Available pregabalin 25 mg capsule TAKE 1 CAPSULE BY MOUTH TWICE DAILY 07/04 completed Not Available Not Available Not Available pregabalin 50 mg capsule TAKE 1 CAPSULE BY MOUTH TWICE DAILY 10/04 completed Not Available Not Available Not Available pregabalin 75 mg capsule 12/27 completed Not Available Not Available Not Available Vitamin D 50mcg qd 07/04 completed Not Available Not Available Not Available Vitamin D3 12/27 completed Not Available Not Available Not Available multivitami n active Not Available Not Available Not Available hydrochloro thiazide 12.5 mg tablet 12/27 completed Not Available Not Available Not Available cholecalcif pretty (vitamin D3) 1,250 mcg (50,000 unit) capsule 10/04 completed Not Available Not Available Not Available cholecalcif pretty (vitamin D3) 50 mcg (2,000 unit) capsule TAKE 1 CAPSULE BY MOUTH ONCE DAILY 07/04 completed Not Available Not Available Not Available Nurtec ODT 75 mg disintegrat ing tablet 12/27 completed Not Available Not Available Not Available Vitals Date Recorded Body height Body mass index (BMI) Body weight Heart rate Body temperature Systolic blood pressure Diastolic blood pressure Provider Name and Address Organization Details Last Updated DateTime 5 170.18 cm 42.1 kg/m2 919283. 55 g 126 /min 97.7 [degF] 151 mm[Hg] 103 mm[Hg] Jessica Mcnally [facility] [place] 5 09:02:32 Date Recorded Body height Body temperature Heart rate Body mass index (BMI) Body weight Systolic blood pressure Diastolic blood pressure Provider Name and Address Organization Details Last Updated DateTime 5 170.18 cm 97.3 [degF] 96 /min 41.5 kg/m2 335486. 98 g 120 mm[Hg] 84 mm[Hg] Lorne mcghee [facility] [place] 5 09:49:02 Date Recorded Body height Body temperature Heart rate Body mass index (BMI) Body weight Systolic blood pressure Diastolic blood pressure Provider Name and Address Organization Details Last Updated DateTime 5 170.18 cm 97.1 [degF] 91 /min 40.5 kg/m2 421510. 35 g 141 mm[Hg] 100 mm[Hg] Stephanie Castro [facility] [place] 5 09:49:04 Social History Question Answer Notes LastModified by Organizat ion Details LastModified Time Tobacco Smoking Status Never Smoker Parris Torres [facility], [place] - [facility] & [place] 07/03/2024 15:12:10 What Is Your Level Of Alcohol Consumption? Occasional [email or web address] Information not available 07/03/2024 What Is Your Level Of Caffeine Consumption? Occasional [email or web address] Information not available 07/04/2024 Do You Use Any Illicit Or Recreational Drugs? No [email or web address] Information not available 07/03/2024 Sex: Female Functional Status None recorded. Mental Status None recorded. Family History Relationship Description Onset Age of this Age Resolved Age Notes LastModified by Organization Details LastModified Time Father Hypertensive disorder [email or web address] Not available 06/2024 15:12:25 Father Hypercholest erolemia [email or web address] Not available 06/2024 15:12:51 Mother Hypertensive disorder [email or web address] Not available 06/2024 15:12:25 Mother Hypercholest erolemia [email or web address] Not available 06/2024 15:12:51 Mother Asthma [email or web address] Not availabl e 07/04/2024 13:49:15 Mother Chronic obstructive pulmonary disease Not available 06/2024 15:13:21 Maternal Grandmother Hypertensive disorder [email or web address] Not available 06/2024 15:12:25 Maternal Grandmother Chronic obstructive pulmonary disease [email or web address] Not available 06/2024 15:13:21 Maternal Grandfather Malignant neoplasm of lung [email or web address] Not available 06/23 13:49:15 Brother Asthma [email or web address] Not availab le 07/04/2024 13:49:15 Sister Asthma [email or web address] Not availabl e 07/04/2024 13:49:15 Medical History [...] SNOMED-CT Code Diagnosis ICD10 Code Diagnosis Note [id number] DO [facility] [address] [place] [address] 12/09/2023 15:31:14 12/09/2023 16:01:57 Paresthesia of upper limb 13623491 R20.2 [id number] RON Azar [facility] [address] [place] [address] [address] [place] [address] 07/04/2024 11:29:18 07/04/2024 14:10:15 Obesity 394007770 E66.9 The patient will be scheduled for [...] completed Disorder o f function of stomach 899467842 K31.89 Pre-surger y evaluation 068268552 Z01.818 Obesity screening 349359 005 Z13.89 Essential hypertension 44081680 I10 Impaired g lucose tolerance 9747231 R73.[id number] [facility] and Adv Surg [address] [facility] [address] [place] [address] 07/04/2024 13:49:08 07/04/2024 14:22:02 Dietary management surveillance 616126812 Z71.3 Completed nutrition evaluation and education with [...] to patient based on recommende d surgery. [id number] Forest Mena MD [facility] [address] [facility] [place] [address] 08/01/2024 09:01:56 08/01/2024 09:49:38 Preoperative cardiovascular examination 121363990 Z01.810 23-year-ol d female sent for preoperati ve cardiovasc ular evaluation for weight loss surgery. She is physically active asymptomat ic can do more than 6 METs with no limitation s. EKG normal sinus rhythm. She can proceed with the surgery as low risk patient for moderate risk procedure from the cardiovasc ular standpoint . Obesity 534360721 E66.9 obesity body mass index 49.8. For weight loss surgery. Recommend sleep apnea evaluation . Essential hypertension 49433555 I10 hypertensi on on hydrochlor othiazide. Recommend switching to beta mathew because she is in the childbeari ng age. Patient declined at this time. She understand s the possible side effects of hydrochlor othiazide. [id number] [address] [facility]ariat[facility] s and Adv Surg [address] [facility] [address] [place] [address] 08/08/2024 12:37:07 08/08/2024 13:20:53 Dietary management surveillance 268010030 Z71.3 [id number] KALI RUBI MD [facility]ariat[facility] and Adv Surg [address] [facility] [address] [place] [address] 10/04/2024 07:39:52 10/04/2024 14:13:26 Morbid obesity 427756686 E66.01 Pre-surger y evaluation 164236643 Z01.818 Postoperative pain 21626 9007 G89.18 pt will continue pregabalin post operativel y Essential hypertension 06200052 I10 Impaired g lucose tolerance 0852140 R73.03 [id number] RON Azar [facility] Bariatric s and Adv Surg [address] [facility] [address] [place] [address] 10/24/2024 07:55:40 10/24/2024 10:33:45 History of gastrectomy 801915535 Z90.3 Encouraged patient to continue focus on intake of adequate protein and hydration. Advised minimum 70 g of protein and 800 calories. Patient is to continue incentive spirometer for another 5-7 days Encouraged ambulation Patient is to start bariatric approved vitamin Follow up 3 weeks Contact dermatitis 29126 004 L25.9 Likely from surgical glue. Patient advised to keep area clean. She may apply Benadryl cream or calamine lotion. Advised she take Zyrtec q.a.m. and Benadryl q.p.m.. Advised she avoid scratching these areas. She is report any worsening symptoms. [id number] RON [facility] [facility] [address] [facility] [address] [place] [address] 11/09/2024 08:34:40 11/09/2024 14:27:44 Nausea and vomiting 29380734 R11.2 Long discussion today regarding adherence to [...] UGI to further evaluate - pt request [facility].Alexander bowen is advised to call or go to the ED for any acute worsening of abdominal symptoms.Alexander bowen is to keep scheduled follow-up 11/17/2024 Mild dehydration 8556221 119 108 E86.0 Patient will have to a L normal saline IV rehydratio n today in office. History of gastrectomy 652045152 Z90.3 s/p TORI-s 10/16/24 [id number] RON Azar n [facility] [address] [facility] [address] [place] [address] 11/17/2024 08:51:00 11/17/2024 09:41:49 Disorder of function of stomach 749114656 K31.89 Long discussion with patient regarding fatigue [...] call for any worsening symptoms Essential hypertension 59197734 I10 Stop monitor and discussed with PCP Impaired g lucose tolerance 0981020 R73.03 History of gastrectomy 535888716 Z90.3 We discussed diet and the importance [...] to correct any vitamin deficienci es. At [facility] risk of nutritional deficit 464359203 Z91.89 Severe obesity 467109496 1 [address]104 E66.813 E66.01 Z68.[id number] [facility] samira Bariatric s [facility] Adv Surg [address] [facility] [address] [place] [address] 11/17/2024 09:37:00 11/17/2024 10:29:59 Diet education 31660188 Z71.3 [id number] RON Azar [facility] [address] [facility] [address] [place] [address] 12/01/2024 09:40:04 12/01/2024 10:22:02 Nausea and vomiting 03069984 R11.2 Long discussion with patient regarding fatigue [...] checking labs today and will follow up patientJaquan n follow-up 2-3 weeks after EGD has been resulted Nutritiona l deficiency state 89643791 E63.9 Encouraged patient see focus on p.o. intake. Advised she continue small frequent sips of protein drinks. History of gastrectomy 785476807 Z90.3 s/p Tori-s 10/16/24 with continued struggles including nausea vomiting p.o. intake.Carmen thorne had upper GIPatient will be scheduled for upper endoscopy for further evaluation Epigastric pain 40882783 R10.13 Advised patient to continue omeprazole . [...] andrés is advised to go to this [place] ED for any acute worsening symptoms [id number] [address] [facility] [address] [facility] [address] [place] [address] 12/27/2024 09:45:05 12/27/2024 11:07:46 Diet education 24115653 Z71.3 [id number] [facility]ON Azar [facility] [address] [facility] [address] [place] [address] 12/27/2024 09:47:12 12/27/2024 12:24:19 Gestation period, 13 weeks 41271940 Z3A.[address] Guillen today.Advi sed to continue vitamins. Next labs due January 2025Pt has appt with bounty hunter today to discuss caloric need. Advise minimal 2863-4111 calories daily and 90 g proteinPt has high density finishing operator appt today in [place] to establish carePt given copy of recent labs to share with OB History of gastrectomy 193221261 Z90.3 s/p Tori-s 10/16/24Fol lowup with labs January 2025 Health Concerns Section Related Observation LastModified by Organization Detai ls LastModified Time None Recorded Concern Status LastModified by Organization Details LastModified Time None Recorded Advance Directives Directive None Recorded Payers Insurance Date Sequence Insurance Name Policy Number Policy Sanchez Covered Member ID Sanchez Member ID Guarantor Name 06/21/2024 1 [facility] [place] Penelope Samira Christina [id number] Penelope Hall Christina 11/06/2024 [facility] Penelope Samira Christina [id number] Penelope Hall [place] 06/21/2024 2 [place]) [id number] Penelope Christina [id number] Penelope Isabel Christina 08/01/2024 1 [facility] [place] Pen[place] Isabel Christina [id number] Penelope Christina 12/24/2024 1 [facility] Penelope Samira Christina [id number] Penelope Christina Notes Date Note Type Note [...] to return to work. 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 She states she has no money for different vitamins.Heartburn/g astroesophageal reflux: she is taking omeprazole.She reports constipation. Pt Denies : abdominal pain, prandial issues Nausea, Vomiting, bladder issuesTotal Weight loss 35lbElevated BP today - pt has not been taking HCTZ. She has not seen PCP since surgery. @11/09/24 Patient presents today as sick visit. She is s/p Ellen 10/16/24Patient states she went to [facility] ED last night for nausea [...] has removed glue from each incision.Path benign AyleenRON Darby [address], [place], [address], [place] - [facility] [place] [facility] [place] 11/17/2024 09:31:49 11/17/2024 text/html RDN met w/ pt fo r 1month f/up s/p ELLEN . Pt weight at MD Consult: 301.4#Current Weight: 268.5#Total Weight Change: -32.9# Notes on weight: desires continued weight loss at this time Signs/SymptomsN/V/C/ D: nausea, constipation and dry heaves - taking [...] for food stamps ISRAEL HERNÁNDEZ, RD [address], [place], [address], [place] [facility] [place] [facility] [place] 11/17/2024 09:58:38 12/01/2024 text/html Patient presents today for sick visit s/p Tori-s 10/16// UGI (Read as ERIN [facility]) No stricture identified no hiatal hernia [...] calories and protein. She is taking gummy multivitamin.Patient has lost 36 lb since surgery. Current [...] to return to work. 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 She states she has no money for different vitamins.Heartburn/g astroesophageal reflux: she is taking omeprazole.She reports constipation. Pt Denies : abdominal pain, prandial issues Nausea, Vomiting, bladder issuesTotal Weight loss 35lbElevated BP today - pt has not been taking HCTZ. She has not seen PCP since surgery. @11/09/24 Patient presents today as sick visit. She is s/p Tori-s 10/16/24Patient states she went to [facility] ED last night for nausea [...] glue from each incision.Path benign RON Azar [address], [place], [address], [place] [facility] [place] & [place] 12/01/2024 10:37:51 12/27/2024 text/html Patient presente d for EGD on 12/14/2024 and was found to be . Please see phone case documentation regarding this.Patient gives history of having issues with infertility requiring fertility treatments to become in the past. She did not feel like she could become . She reports unprotected intercourse 10/06/2024. Urine test was negative date of surgery 02/24/2025Patient reports she is now 11 with she did see OB and has been referred to high-risk OB. She has has appointment with high-risk OB later this afternoon.Patient has had some nausea she feels like is related to antibiotic use. She was prescribed antibiotic for UTI by OB. She reports 1 episode of vomiting. She has Zofran RXShe reports near 70g protein and 1200 calories.She is now on pre vitamins. Labs 11/18/23 show slight vit E def @12/01/24 OV -Patient presents today for sick visit s/p Tori-s 10/16/ UGI (Read as [facility]) No stricture identified no hiatal hernia [...] calories and protein. She is taking gummy multivitamin.Patient has lost 36 lb since surgery. Current [...] to return to work. 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 She states she has no money for different vitamins.Heartburn/g astroesophageal reflux: she is taking omeprazole.She reports constipation. Pt Denies : abdominal pain, prandial issues Nausea, Vomiting, bladder issuesTotal Weight loss 35lbElevated BP today - pt has not been taking HCTZ. She has not seen PCP since surgery. @11/09/24 Patient presents today as sick visit. She is s/p Tori-s 10/16/24Patient states she went to [facility] ED last night for nausea [...] glue from each incision.Path benign RON Azar [address], [place], [address], [facility] - [place] - [place] & [place] 12/27/2024 10:31:49 12/27/2024 text/html RDN met w/ pt fo r f/up s/p ELLEN. Pt is now 12 weeks . Pt weight at MD Consult: 301.4#Current Weight: 258.7#Total Weight Change: -42.7# Notes on weight: Signs/SymptomsN/V/C/ D: nausea and vomiting some, diarrhea some Meds and labs reviewed.Notes - Physical activity: none Tracking meal intakes: has not been tracking Est. daily kcal intake: unsure Est. daily protein intake: unsure Est. daily fluid intake: unsure Meal Frequency/Pattern: feels hungry every 30 minutes and eating once every hourmorning: sausage burritosnacklunchdin ner: 3 course mealprotein shakes sometimes - corepowerdoing regular chocolate milk Drinks: body armor, water, sprite zero to help nausea Foods Not Tolerated: none noted Additional notes/concerns: Able to get food stamps and getting WIC, KT[employer], housing assistance ISRAEL HERNÁNDEZ, [address], [place], [address], [facility] - [place] & [place] 12/27/2024 11:07:36 OBGyn Episode No OBEpisode recorded.
--- OUTSIDE RECORDS SUMMARY | 2024-12-28 12:46 | XMS_ITS | Continuity of Care Document ---
Author Organization [facility] Address [address] [place] [address] Care Team Providers Care Art Therapy Specialist Name Role Phone KARLOS CHESTER Primary Care Provider [phone] Assessment No assessment recorded. Plan of Treatment Reminders Order Date Submit Date Provider Last Modified By Organization Details Last Modified Time Details Appointments OV EST 025 10:00AM RON Azar Not available Not available Not available OV EST 025 10:20AM ISRAEL HERNÁNDEZ RD Not available Not available Not available OV EST 025 01:20PM RON Azar Not available Not available Not available OV EST 025 01:40PM ISRAEL HERNÁNDEZ RD Not available Not available Not available Lab None record ed. Referral None record ed. Procedures None record ed. Surgeries None record ed. Imaging None record ed. Medication Orders None record ed. Patient TargetsNo targets recorded. Patient InstructionsNo instructions recorded. Reason for Referral None Reported. Problems Name Problem SNOMED Code Status Onset Date Resolution Date Notes Provider Name and Address Organization Details Recorded Time Essential hypertensi on 24403601 Active 2023 RON Azar [address], [place], [address] , [facility] & [place] 4 12:30:28 Obesity 796381613 Active 2023 RON Azar [address], [place], [address] , [facility] & [place] 4 12:30:50 Disorder of function of stomach 058555352 Active 2023 RON Azar [address], [place], [address] , [place] - [facility] - [place] & [place] 4 12:30:50 Impaired glucose tolerance 2445995 Active 2023 RON Azar [address], [place], [address] , [place] [facility] - [place] & [place] 4 12:31:02 Postoperat nicholas pain 451089009 Active 2024 RON Azar [address], [place], [address] , [place] [facility] - [place] & [place] 5 08:04:37 Contact dermatitis 30046743 Active 2024 RON Azar [address], [place], [address] , [place] [facility] [place] & [place] 5 10:32:01 Nausea 052530628 Active 2024 RON Azar [address], [place], [address] , [place] [facility] - [place] & [place] 5 09:06:20 Nausea and vomiting 20964189 Active 2024 RON Azar [address], [place], [address] , [place] [facility] - [place] & [place] 5 10:19:41 Bilious vomiting 13733395 Active 2024 RON Azar [address], [place], [address] , [place] [facility] - [place] & [place] 5 09:06:37 Mild dehydratio n 0602345741097 Active 2024 RON Azar [address], [place], [address] , [place] [facility] - [place] & [place] 5 09:09:44 Intentiona l weight loss 152586989 Active 2024 RON Azar [address], [place], [address] , [place] - [facility] & [place] 5 09:06:38 Body mass index 40+ - severely obese 034949999 Active 2024 RON Azar [address], [place], [address] , [place] - [facility] & [place] 5 09:07:05 Severe obesity 1786038894043 4 Active 2024 RON Azar [address], [place], [address] , [place] [facility] & [place] 5 09:07:24 Nutritiona l deficiency state 23334178 Active 2024 RON Azar [address], [place], [address] , [place] [facility] & [place] 5 10:04:26 Epigastric pain 48328287 Active 2024 RON Azar [address], [place], [address] , [place] [facility] & [place] 5 10:16:35 Gestation period, 13 weeks 48594995 Active 2024 RON Azar [address], [place], [address] , [place] [facility] & [place] 5 10:26:24 Paresthesi a of upper limb 03136420 Active 2023 Raquel Guillen DO [address], [place], [address] , [place] - [facility] & [place] 4 15:38:11 Problem Notes None recorded. Procedures Surgical History Date Name Laterality Status Provider Name and Address Organization Details Recorded Time 10/16/19 25 procedure on duodenum completed Parris Torres [place] - [facility] & [place] 11/09/2024 08:47:34 12/09/19 24 EMG/ Nerve Conduction Study completed Raquel Guillen DO [address], [place], [address], [facility] & [place] 12/09/2023 15:38:04 Cholecystectomy completed RON Azar [address], [place], [address], [facility] & [place] 07/04/2024 12:57:53 extraction of wisdom tooth completed Parris Torres [facility] & [place] 07/03/2024 15:07:44 Tonsillectomy completed Parris Torres [facility] & [place] 07/03/2024 15:07:52 procedure on ganglion cyst completed Stephanie Castro [facility] & [place] 10/04/2024 07:53:08 Imaging Results [...] Center ODT 75 mg disintegrat ing tablet 12/27 completed Not Available Not Available Not Available Vitals Date Recorded Body height Body temperature Heart rate Body mass index (BMI) Body weight Systolic blood pressure Diastolic blood pressure Provider Name and Address Organization Details Last Updated DateTime 5 170.18 cm 97.1 [degF] 91 /min 40.5 kg/m2 244016. 35 g 141 mm[Hg] 100 mm[Hg] Stephanie Castro [facility] & [place] 5 09:49:04 Social History Question Answer Notes LastModified by Organizat ion Details LastModified Time Tobacco Smoking Status Never Smoker Parris Torres [facility] & [place] 07/03/2024 15:12:10 What Is Your Level Of Alcohol Consumption? Occasional [email or web address] Information not available 07/03/2024 What Is Your Level Of Caffeine Consumption? Occasional [email or web address] Information not available 07/04/2024 Do You Use Any Illicit Or Recreational Drugs? No [email or web address] Information not available 07/03/2024 Sex: Female Functional Status None recorded. Mental Status None recorded. Family History Relationship Description Onset Age of this Age Resolved Age Notes LastModified by Organization Details LastModified Time Father Hypertensive disorder [email or web address] Not available 06/2024 15:12:25 Father Hypercholest erolemia [email or web address] Not available 06/2024 15:12:51 Mother Hypertensive disorder [email or web address] Not available 06/2024 15:12:25 Mother Hypercholest erolemia [email or web address] Not available 06/2024 15:12:51 Mother Asthma [email or web address] Not availabl e 07/04/2024 13:49:15 Mother Chronic obstructive pulmonary disease [email or web address] Not available 06/2024 15:13:21 Maternal Grandmother Hypertensive disorder [email or web address] Not available 06/2024 15:12:25 Maternal Grandmother Chronic obstructive pulmonary disease Not available 06/2024 15:13:21 Maternal Grandfather Malignant neoplasm of lung [email or web address] Not available 06/23 13:49:15 Brother Asthma [email or web address] Not availab le 07/04/2024 13:49:15 Sister Asthma [email or web address] Not availabl e 07/04/2024 13:49:15 Medical History [...] SNOMED-CT Code Diagnosis ICD10 Code Diagnosis Note [id number] RON Azar [facility] [address] [facility] [address] [place] [address] 12/01/2024 09:40:04 12/01/2024 10:22:02 Nausea and vomiting 61724145 R11.2 Long discussion with patient regarding fatigue [...] has been resulted Nutritiona l deficiency state 71798181 E63.9 Encouraged patient see focus on p.o. intake. Advised she continue small frequent sips of protein drinks. History of gastrectomy 443658105 Z90.3 s/p Tori-s 10/16/24 with continued struggles including nausea vomiting p.o. intake.Carmen thorne had upper GIPatient will be scheduled for upper endoscopy for further evaluation Epigastric pain 82359398 R10.13 Advised patient to continue omeprazole . [...] atient is advised to go to this [place] ED for any acute worsening symptoms [id number] [address] [facility] [address] [facility] [address] [place] [address] 12/27/2024 09:45:05 12/27/2024 11:07:46 Diet education 61852690 Z71.3 [id number] RON Azar [facility] [address] [facility] [address] [place] [address] 12/27/2024 09:47:12 12/27/2024 12:24:19 Gestation period, 13 weeks 04959067 Z3A.[address] Guillen today.Advi sed to continue vitamins. Next labs due January 2025Pt has appt with emergency room technician today to discuss caloric need. Advise minimal 6281-7446 calories daily and 90 g proteinPt has high school professional appt today in [place] to establish carePt given copy of recent labs to share with OB History of gastrectomy 827031123 Z90.3 s/p Tori-s 10/16/24Fol lowup with labs January 2025 Health Concerns Section Related Observation LastModified by Organization Detai ls LastModified Time None Recorded Concern Status LastModified by Organization Details LastModified Time None Recorded Payers Encounter Date Sequence Insurance Name Policy Number Policy Sanchez Covered Member ID Sanchez Member ID Guarantor Name 12/27/2024 1 [facility] ([place] REPLAC[place] - [place]MO[place] KYNATHANIEL Christina [id number] Penelope Christina Notes Date Note Type Note Provider Name and Address Organization Details Recorded Time 12/27/2024 text/html Patient presente d for EGD on 12/14/2024 and was found to be . Please see phone case documentation regarding this.Patient gives history of having issues with infertility requiring fertility treatments to become in the past. She did not feel like she could become . She reports unprotected intercourse 10/06/2024. Urine test was negative date of surgery 10/16/2024Patient reports she is now 11 with she [...] Tori-s 10/16/ UGI (Read as ERIN HOPSON [facility]) No stricture identified no hiatal hernia [...] to return to work. 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 Pt is now 12 weeks . Pt [...] KTAP, housing assistance ISRAEL HERNÁNDEZ, [address], [place], [address], [facility] - [place] & [place] 12/27/2024 11:07:36 OBGyn Episode No OBEpisode recorded.
--- OUTSIDE RECORDS SUMMARY | 2024-12-28 12:46 | XMS_ITS | Continuity of Care Document ---
Author Organization [place] - [facility] Address [address] [facility] [address] [place] [address] Care Team Providers Care Clinical Project Leader Name Role Phone KARLOS CHESTER Primary Care Provider Assessment Encounter Date Assessment Date Assessment LastModified by Organization Details LastModified Time 12/27/2024 12/27/2024 A total of 15 minutes [...] 64 fluid oz, try to get in 3335-9296 calories starting now 7. Use [employer] dot to track 8. Take vitamins as [...] f/up as scheduled or PRN. Not available 12/27/2024 11:07:23 Plan of Treatment Reminders Order Date Submit Date Provider Last Modified By Organization Details Last Modified Time Details Appointments OV EST 20 025 10:00AM RON Azar Not available Not [...] Organization Details Recorded Time Essential hypertensi on 01372802 Active 2023 RON Azar [address], [place], [address] , [place] - [facility] - [place] & [place] 4 12:30:28 Obesity 259009449 Active 2023 RON Azar [address], [place], [address] , [place] - [facility] - [place] & [place] 4 12:30:50 Disorder of function of stomach 815767297 Active 2023 RON Azar [address], [place], [address] , [place] - [facility] - [place] & [place] 4 12:30:50 Impaired glucose tolerance 6929292 Active 2023 RON Azar [address], [place], [address] , [place] - [facility] - [place] & [place] 4 12:31:02 Postoperat nicholas pain 074395265 Active 2024 RON Azar [address], [place], [address] , [place] - [facility] - [place] & [place] 5 08:04:37 Contact dermatitis 62691018 Active 2024 RON Azar [address], [place], [address] , [place] - [facility] & [place] 5 10:32:01 Nausea 996082263 Active 2024 RON Azar [address], [place], [address] , [place] - [facility] - [place] & [place] 5 09:06:20 Nausea and vomiting 25551037 Active 2024 RON Azar [address], [place], [address] , [place] [facility] - [place] & [place] 5 10:19:41 Bilious vomiting 18072142 Active 2024 RON Azar [address], [place], [address] , [place] - [facility] - [place] & [place] 5 09:06:37 Mild dehydratio n 5355836435837 Active 2024 RON Azar [address], [place], [address] , [place] - [facility] - [place] & [place] 5 09:09:44 Intentiona l weight loss 249230543 Active 2024 RON Azar [address], [place], [address] , [place] - [facility] - [place] & [place] 5 09:06:38 Body mass index 40+ - severely obese 359345523 Active 2024 RON Azar [address], [place], [address] , [place] [facility] - [place] & [place] 5 09:07:05 Severe obesity 0696523983233 4 Active 2024 RON Azar [address], [place], [address] , [place] [facility] - [place] & [place] 5 09:07:24 Nutritiona l deficiency state 87759897 Active 2024 RON Azar [address], [place], [address] , [place] [facility] - [place] & [place] 5 10:04:26 Epigastric pain 46738282 Active 2024 RON Azar [address], [place], [address] , [facility] - [facility] & [place] 5 10:16:35 Gestation period, 13 weeks 83637607 Active 2024 RON Azar [address], [place], [address] , [facility] - [facility] & [place] 5 10:26:24 Paresthesi a of upper limb 16057041 Active 2023 Raquel Guillen DO [address], [place], [address] , [facility] - [facility] & [place] 4 15:38:11 Problem Notes None recorded. Procedures Surgical History Date Name Laterality Status Provider Name and Address Organization Details Recorded Time 10/16/19 25 [facility]enum [facility] & [place] 11/09/2024 08:47:34 12/09/19 24 EMG/ Nerve Conduction Study completed Raquel Guillen DO [address], [place], [address], [place] - [facility] & [place] 12/09/2023 15:38:04 Cholecystectomy completed RON Azar [address], [place], [address], [place] - [facility] & [place] 07/04/2024 12:57:53 extraction of wisdom tooth completed Parris GUTHRIE - [facility] & [place] 07/03/2024 15:07:44 Tonsillectomy completed Parris Martinez [facility] & [place] 07/03/2024 15:07:52 procedure on ganglion cyst completed Stephanie Castro [facility] & [place] 10/04/2024 07:53:08 Imaging Results None [...] cm 97.1 [degF] 91 /min 40.5 kg/m2 571198. 35 g 141 mm[Hg] 100 mm[Hg] Stephanie Castro [facility] & [place] 5 09:49:04 Social History Question Answer Notes LastModified by Organizat ion Details LastModified Time Tobacco Smoking Status Never Smoker Parris neely, [facility] & [place] 07/03/2024 15:12:10 What Is Your Level Of Alcohol Consumption? Occasional [email or web address] Information not available 07/03/2024 What Is Your Level Of Caffeine Consumption? Occasional Information not available 07/04/2024 Do You Use Any Illicit Or Recreational Drugs? No Information not available 07/03/2024 Sex: Female Functional Status None recorded. Mental Status None recorded. Family History Relationship Description Onset Age of this Age Resolved Age Notes LastModified by Organization Details LastModified Time Father Hypertensive disorder [email or web address] Not available 06/2024 15:12:25 Father Hypercholest erolemia [email or web address] Not available 06/2024 15:12:51 Mother Hypertensive disorder Not available 06/2024 15:12:25 Mother Hypercholest erolemia [email or web address] Not available 06/2024 15:12:51 Mother Asthma [email or web address] Not availabl e 07/04/2024 13:49:15 Mother Chronic obstructive pulmonary disease [email or web address] Not available 06/2024 15:13:21 Maternal Grandmother Hypertensive disorder [email or web address] Not available 06/2024 15:12:25 Maternal Grandmother Chronic obstructive pulmonary disease [email or web address] Not available 06/2024 15:13:21 Maternal Grandfather Malignant neoplasm of lung [email or web address] Not available 06/23 13:49:15 Brother Asthma [email or web address] Not availab le 07/04/2024 13:49:15 Sister Asthma [email or web address] Not availabl e 07/04/2024 13:49:15 Medical History Condition Response Coronary Artery Disease N Other Y Depression Y Deep Vein Thrombosis N Diabetes Y Anxiety Disorder Y Bleeding Disorder N Reflux/GERD Y Liver Disease N Heart Disease N Pulmonary Embolism N Headaches Y Hypertension Y Kidney Disease N Gynecological HistoryNo gynecological history recorded. Obstetrics History GPAL:G 0 P 0 0 0 0 Past Encounters Encounter ID Performer Location Encounter Start Date Encounter Closed Date Diagnosis/Indication Diagnosis SNOMED-CT Code Diagnosis ICD10 Code Diagnosis Note [id number] RON Azar [facility] [address] [facility] [address] [place] [address] 12/01/2024 09:40:04 12/01/2024 10:22:02 Nausea and vomiting 27708565 R11.2 Long discussion with patient regarding fatigue and nausea specifical ly related to caloric intake.Camren thorne will be prescribed Compazine. Patient advised [...] has been resulted Nutritiona l deficiency state 54204145 E63.9 Encouraged patient see focus on p.o. intake. Advised she continue small frequent sips of protein drinks. History of gastrectomy 099257754 Z90.3 s/p Tori-s 10/16/24 with continued struggles including nausea vomiting p.o. intake.Carmen thorne had upper GIPatient will be scheduled for upper endoscopy for further evaluation Epigastric pain 02480679 R10.13 Advised patient to continue omeprazole . [...] with patient after EGD has been resulted.P douglasient is advised to go to this [place] ED for any acute worsening symptoms [id number] YAMINI MILLERw n Bariatric s and Adv Surg [address] [facility] [address] [place] [address] 12/27/2024 09:45:05 12/27/2024 11:07:46 Diet education 27359001 Z71.3 [id number] RON Azar n [facility] [address] [facility] [address] [place] [address] 12/27/2024 09:47:12 12/27/2024 12:24:19 Gestation period, 13 weeks 70219398 Z3A.[address] Guillen today.Advi sed to continue vitamins. Next labs due January 2025Pt has appt with enterostomal nurse today to discuss caloric need. Advise minimal 1228-1063 calories daily and 90 g proteinPt has high school learning support teacher appt today in [place] to establish carePt given copy of recent labs to share with OB History of gastrectomy 872592634 Z90.3 s/p Tori-s 10/16/24Fol lowup with labs January 2025 Health Concerns Section Related Observation LastModified by Organization Detai ls LastModified Time None Recorded Concern Status LastModified by Organization Details LastModified Time None Recorded Payers Encounter Date Sequence Insurance Name Policy Number Policy Sanchez Covered Member ID Sanchez Member ID Guarantor Name 12/27/[address] [facility] ([place]AC[place] - [place]) [id number] Penelope Christina [id number] Penelope Christina Notes Date Note Type Note [...] and 1200 calories.She is now on pre debra vitamins. Labs 11/18/23 show slight vit E def @12/01/24 OV -Patient presents today for sick visit s/p Tori-s 10/16/ UGI (Read as ERIN HOPSON [facility]) No stricture identified no hiatal hernia normal [...] to return to work. 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
--- OUTSIDE RECORDS SUMMARY | 2024-12-28 12:46 | XMS_ITS | Continuity of Care Document ---
Author Organization [place] - [facility] & [facility] Surg Address [address] [facility] [facility] [address] [address] [place] [address] Care Team Providers Care Ceramics Engineer Name Role Phone KARLOS CHESTER Primary Care Provider [phone] Assessment Encounter Date Assessment Date Assessment LastModified [...] further questions/concerns . Pt reports that social sciences lecturer did reach out to her but there are not any other options available in her area. Provided pt with some ensure clear samples because she can keep those down. ??? RDN will monitor weight loss, labs, meds, and lifestyle modifications. Will f/up as scheduled or PRN. [email or web address] Not available 11/17/2024 09:58:18 Plan of Treatment Reminders Order Date Submit Date Provider Last Modified By Organization Details Last Modified Time Details Appointments OV EST 20 025 10:00AM RON Azar Not available Not available Not available OV EST 20 025 10:20AM [address]EL H[address]Z [address] Not available Not available Not available OV EST 20 025 01:20PM RON Azar Not available Not [...] ast PO No observ ation record ed. [facility] [address], [place], [address], 11/14/2024 15:11:14 11/11/19 25 11/10/2024 RF, upper gastr ointe yadira l tract , w/ air, w/ contr ast PO No observ ation record ed. [facility] (Scheduling) [address], [place], [address], 11/14/2024 15:11:15 11/11/19 25 11/10/2024 RF, upper gastr ointe yadira l tract , w/ air, w/ contr ast PO No observ ation record ed. [email or web address] (Scheduling) [address], [place], [address], 11/10/2024 14:58:54 Result Notes None recorded. Problems Name Problem SNOMED Code Status Onset Date Resolution Date Notes Provider Name and Address Organization Details Recorded Time Essential hypertensi on 77380344 Active 2023 RON Azar [address], [place], [address] , [facility] - [place] & [place] 12:30:28 Obesity 920674003 Active [address], [place], [address] , [place] - [facility] - [place] & [place] 4 12:30:50 Disorder of function of stomach 131699425 Active [address], [place], [address] , [place] [facility] & [place] 4 12:30:50 Impaired glucose tolerance 0675059 Active [address], [place], [address] , [place] [facility] & [place] 4 12:31:02 Postoperat nicholas pain 461555833 Active [address], [place], [address] , [place] - [facility] - [place] & [place] 5 08:04:37 Contact dermatitis 15434186 Active [address], [place], [address] , [place] [facility] & [place] 5 10:32:01 Nausea 798705659 Active [address], [place], [address] , [place] [facility] 5 09:06:20 Nausea and vomiting 99080696 Active [address], [place], [address] , [place] [facility] & [place] 5 10:19:41 Bilious vomiting 42808590 Active [address], [place], [address] , [place] [facility] [facility] & [place] 5 09:06:37 Mild dehydratio n 9783852763832 Active [address], [place], [address] , [place] & [place] 5 09:09:44 Intentiona l weight loss 521165733 Active 2024 RON Azar [address], [place], [address] , [place] [facility] [facility] & [place] 5 09:06:38 Body mass index 40+ - severely obese 050440337 Active [address], [place], [address] , [place] [facility] [facility] & [place] 5 09:07:05 Severe obesity 2012213646533 4 [address], [place], [address] , [place] [facility] [facility] & [place] 5 09:07:24 Nutritiona l deficiency state 33002070 Active 2024 RON Azar [address], [place], [address] , [place] [facility] [facility] & [place] 5 10:04:26 Epigastric pain 27793834 Active 2024 RON Azar [address], [place], [address] , [place] [facility] [facility] & [place] 5 10:16:35 Gestation period, 13 weeks 11217442 Active [address], [place], [address] , [place] [facility] [facility] & [place] 5 10:26:24 Paresthesi a of upper limb 16286337 Active 2023 Raquel Guillen DO [address], [place], [address] , [place] [facility] [facility] & [place] 4 15:38:11 Problem Notes None recorded. Procedures Surgical History Date Name Laterality Status Provider Name and Address Organization Details Recorded Time 10/16/19 25 procedure on duodenum completed Parris Torres [facility] & [place] 11/09/2024 08:47:34 12/09/19 24 EMG/ Nerve Conduction Study completed Raquel Guillen DO [address], [place], [address], [facility] & [place] 12/09/2023 15:38:04 Cholecystectomy completed RON Azar [address], [place], [address], [facility] & [place] 07/04/2024 12:57:53 extraction of wisdom tooth completed Parris Torres [facility] & [place] 07/03/2024 15:07:44 Tonsillectomy completed Parris Torres [facility] & [place] 07/03/2024 15:07:52 procedure on ganglion cyst completed Stephanie Castro [facility] & [place] 10/04/2024 07:53:08 Imaging Results None recorded. Procedure [...] completed Not Available Not Available Not Available [facility] mg disintegrat ing tablet 12/27 completed Not Available Not Available Not Available Vitals Date Recorded Body height Body mass index (BMI) Body weight Heart rate Body temperature Systolic blood pressure Diastolic blood pressure Provider Name and Address Organization Details Last Updated DateTime 170.18 cm 42.1 kg/m2 086470. 55 g 126 /min 97.7 [degF] 151 mm[Hg] 103 mm[Hg] Jessica Mcnally [facility] & [place] 09:02:32 Social History Question Answer Notes LastModified by Organizat ion Details LastModified Time Tobacco Smoking Status Never Smoker Parris Brian [facility], [facility] & [place] 07/03/2024 15:12:10 What Is Your Level Of Alcohol Consumption? Occasional [email or web address] Information not available 07/03/2024 What Is Your Level Of Caffeine Consumption? Occasional [email or web address] Information not available 07/04/2024 Do You Use Any Illicit Or Recreational Drugs? No [email or web address] Information not available 07/03/2024 Sex: Female Functional Status None recorded. Mental Status None recorded. Family History Relationship Description Onset Age of this Age Resolved Age Notes LastModified by Organization Details LastModified Time Father Hypertensive disorder [email or web address] Not available 06/2024 15:12:25 Father Hypercholest erolemia [email or web address] Not available 06/2024 15:12:51 Mother Hypertensive disorder [email or web address] Not available 06/2024 15:12:25 Mother Hypercholest erolemia [email or web address] Not available 06/2024 15:12:51 Mother Asthma [email or web address] Not availabl e 07/04/2024 13:49:15 Mother Chronic obstructive pulmonary disease Not available 06/2024 15:13:21 Maternal Grandmother Hypertensive disorder [email or web address] Not available 06/2024 15:12:25 Maternal Grandmother Chronic obstructive pulmonary disease Not available 06/2024 15:13:21 Maternal Grandfather Malignant neoplasm of lung [email or web address] Not available 06/23 13:49:15 Brother Asthma [email or web address] Not availab le 07/04/2024 13:49:15 Sister Asthma [email or web address] Not availabl e 07/04/2024 13:49:15 Medical History Condition Response Diabetes Y Anxiety Disorder Y Coronary Artery Disease N Other Y [...] SNOMED-CT Code Diagnosis ICD10 Code Diagnosis Note [id number] RON Azar [facility] [address] [place] [address] [address] [place] [address] 10/24/2024 07:55:40 10/24/2024 10:33:45 History of gastrectomy 373145744 Z90.3 Encouraged patient to continue focus on intake of adequate protein and hydration. Advised minimum 70 g of protein and 800 calories. Patient is to continue incentive spirometer for another 5-7 days Encouraged ambulation Patient is to start bariatric approved vitamin Follow up 3 weeks Contact dermatitis 29268 004 L25.9 Likely from surgical glue. Patient advised to keep area clean. She may apply Benadryl cream or calamine lotion. Advised she take Zyrtec q.a.m. and Benadryl q.p.m.. Advised she avoid scratching these areas. She is report any worsening symptoms. [id number] RON Azar [facility] [address] [facility] [address] [place] [address] 11/09/2024 08:34:40 11/09/2024 14:27:44 Nausea and vomiting 65249253 R11.2 Long discussion today regarding adherence to [...] UGI to further evaluate - pt request [facility].Alexander bowen is advised to call or go to the ED for any acute worsening of abdominal symptoms.Alexander bowen is to keep scheduled follow-up 11/17/2024 Mild dehydration 7227284 119 108 E86.0 Patient will have to a L normal saline IV rehydratio n today in office. History of gastrectomy 299200794 Z90.3 s/p TORI-s 10/16/24 [id number] RON Azar [facility] [address] [facility] [address] [place] [address] 11/17/2024 08:51:00 11/17/2024 09:41:49 Disorder of function of stomach 122921613 K31.89 Long discussion with patient regarding fatigue [...] call for any worsening symptoms Essential hypertension 82274913 I10 Stop monitor and discussed with PCP Impaired g lucose tolerance 8106546 R73.03 History of gastrectomy 360809416 Z90.3 We discussed diet and the importance [...] to correct any vitamin deficienci es. At [facility] risk of nutritional deficit 133375019 Z91.89 Severe obesity 384054236 1 [address]104 E66.813 E66.01 Z68.[id number] [facility] [address] [facility] [place] [address] 11/17/2024 09:37:00 11/17/2024 10:29:59 Diet education 92277710 Z71.3 Health Concerns Section Related Observation LastModified by Organization Detai ls LastModified Time None Recorded Concern Status LastModified by Organization Details LastModified Time None Recorded Payers Encounter Date Sequence Insurance Name Policy Number Policy Sanchez Covered Member ID Sanchez Member ID Guarantor Name 11/17/2024 1 [facility] ([place]PLAC[place] - [place]MO) MARY Christina [id number] Penelope Christina Notes Date Note Type Note [...] to return to work. 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
--- OUTSIDE RECORDS SUMMARY | 2024-12-28 12:47 | XMS_ITS | Continuity of Care Document ---
Author Organization [facility] Bariatrics and Adv Surg Address [address] [place] [address] Care Team Providers Care Primary Products Inspectors Name Role Phone KARLOS CHESTER Primary Care Provider Assessment No assessment recorded. Plan of Treatment Reminders Order Date Submit Date Provider Last Modified By Organization Details Last Modified Time Details Appointments OV EST 2024 10:00A M RON Azar Not available Not available Not available OV EST 20 2024 10:20A M [address] Not available Not available Not available OV EST 20 2024 01:20P M RON Azar Not available Not available Not available OV EST 20 2024 01:40P M [address] Not available Not available Not available Lab magnesium , serum or plasma 2024 025 [facility], [address] [place] [address], [address], 12/08/2024 04:11:53 phosphoru s, serum or plasma 2024 025 [facility], [address] [place] [address], [address], 12/08/2024 04:11:53 CBC w/ auto diff 2024 025 [facility], [address], [address], [place], [address], 12/02/2024 03:38:32 CMP, serum or plasma 2024 025 [facility], [address], [address], [place], [address], 12/02/2024 03:38:33 Referral None recorded. Procedures None recorded. Surgeries esophagog astroduod enoscopy (SURG) 2024 025 earl Rubi MD, [address], [place], [address], 12/15/2024 11:34:18 Imaging None recorded. Medication Orders thiamine HCl (vitamin B1) 100 mg/mL injection solution 2024 025 [email or web address] Not available 12/27/2024 09:50:37 cyanocoba yves (vit B-12) 1,000 mcg/mL injection solution 2024 025 [email or web address] Not available 12/27/2024 09:50:09 Compazine 5 mg tablet 2024 025 [facility], [address], [place], [address], 12/01/2024 10:20:25 Patient TargetsNo targets recorded. Patient InstructionsNo instructions recorded. Reason for Referral None Reported. Results Created Date Observation Date Name Description Value Unit Range Abnormal Flag Note LastModifiedBy Organization Detail LastModifiedTime 11/11/1911/10/2024 RF, upper gastr ointe yadira l tract , w/ air, w/ contr ast PO No observ ation record ed. [facility] [address], [place], [address], 11/14/2024 15:11:14 11/11/19 25 11/10/2024 RF, upper gastr ointe yadira l tract , w/ air, w/ contr ast PO No observ ation record ed. [facility] (Scheduling) [address], [place], [address], 11/14/2024 15:11:15 11/11/19 25 11/10/2024 RF, upper gastr ointe yadira l tract , w/ air, w/ contr ast PO No observ ation record ed. [email or web address] [facility] [address], [place], [address], 11/10/2024 14:58:54 Result Notes None recorded. Problems Name Problem SNOMED Code Status Onset Date Resolution Date Notes Provider Name and Address Organization Details Recorded Time Essential hypertensi on 96029047 Active [address], [place], [address] , [place] [facility] - [place] & [place] 4 12:30:28 Obesity 632627815 Active [address], [place], [address] , [place] [facility] & [place] 4 12:30:50 Disorder of function of stomach 293312719 Active [address], [place], [address] , [place] [facility] 4 12:30:50 Impaired glucose tolerance 7744866 Active [address], [place], [address] , [place] 4 12:31:02 Postoperat nicholas pain 393633875 Active [address], [place], [address] , [place] [facility] 5 08:04:37 Contact dermatitis 22924123 Active [address], [place], [address] , [place] [facility] 5 10:32:01 Nausea 999955633 Active 2024 RON Azar [address], [place], [address] , [place] 5 09:06:20 Nausea and vomiting 01134602 Active 2024 RON Az[address], [place], [address] , [place] 5 10:19:41 Bilious vomiting 96153408 Active 2024 RON Azar [address], [place], [address] , [place] 5 09:06:37 Mild dehydratio n 3981232736126 Active 2024 RON Azar [address], [place], [address] , [place] 5 09:09:44 Intentiona l weight loss 166800729 Active 2024 RON Azar [address], [place], [address] , [place] 5 09:06:38 Body mass index 40+ - severely obese 962534630 Active 2024 RON Azar [address], [place], [address] , [place] 5 09:07:05 Severe obesity 7159925511228 4 Active 2024 RON Azar [address], [place], [address] , [place] 5 09:07:24 Nutritiona l deficiency state 90641580 Active 2024 RON Azar [address], [place], [address] , [place] 5 10:04:26 Epigastric pain 32051802 Active 2024 RON Azar [address], [place], [address] , [facility] - [facility] & [place] 5 10:16:35 Gestation period, 13 weeks 69525726 Active 2024 RON Azar [address], [place], [address] , [facility] - [facility] & [place] 5 10:26:24 Paresthesi a of upper limb 38669019 Active 2023 Raquel Guillen DO [address], [place], [address] , [facility] - [facility] & [place] 4 15:38:11 Problem Notes None recorded. Procedures Surgical History Date Name Laterality Status Provider Name and Address Organization Details Recorded Time 10/16/19 25 procedure on duodenum completed Parris Torres [facility] & [place] 11/09/2024 08:47:34 12/09/19 24 EMG/ Nerve Conduction Study completed Raquel Guillen DO [address], [place], [address], [place] [facility] & [place] 12/09/2023 15:38:04 Cholecystectomy completed RON Azar [address], [place], [address], [place] [facility] & [place] 07/04/2024 12:57:53 extraction of wisdom tooth completed Parris GUTHRIE - [facility] & [place] 07/03/2024 15:07:44 Tonsillectomy completed Parris GUTHRIE - [facility] & [place] 07/03/2024 15:07:52 procedure on ganglion cyst completed Stephanie Castro [facility] & [place] 10/04/2024 07:53:08 Imaging Results None recorded. Procedure [...] cm 97.3 [degF] 96 /min 41.5 kg/m2 397756. 98 g 120 mm[Hg] 84 mm[Hg] Lorne mcghee [facility] & [place] 5 09:49:02 Social History Question Answer Notes LastModified by Organizat ion Details LastModified Time Tobacco Smoking Status Never Smoker Parris neely, [facility] & [place] 07/03/2024 15:12:10 What Is Your Level Of Alcohol Consumption? Occasional [email or web address] Information not available 07/03/2024 What Is Your Level Of Caffeine Consumption? Occasional [email or web address] Information not available 07/04/2024 Do You Use Any Illicit Or Recreational Drugs? No [email or web address] Information not available 07/03/2024 Sex: Female Functional Status None recorded. Mental Status None recorded. Family History Relationship Description Onset Age of this Age Resolved Age Notes LastModified by Organization Details LastModified Time Father Hypertensive disorder [email or web address] Not available 06/2024 15:12:25 Father Hypercholest erolemia [email or web address] Not available 06/2024 15:12:51 Mother Hypertensive disorder [email or web address] Not available 06/2024 15:12:25 Mother Hypercholest erolemia Not available 06/2024 15:12:51 Mother Asthma [email or web address] Not availabl e 07/04/2024 13:49:15 Mother Chronic obstructive pulmonary disease Not available 06/2024 15:13:21 Maternal Grandmother Hypertensive disorder [email or web address] Not available 06/2024 15:12:25 Maternal Grandmother Chronic obstructive pulmonary disease [email or web address] Not available 06/2024 15:13:21 Maternal Grandfather Malignant neoplasm of lung [email or web address] Not available 06/23 13:49:15 Brother Asthma [email or web address] Not availab le 07/04/2024 13:49:15 Sister Asthma [email or web address] Not availabl e 07/04/2024 13:49:15 Medical History [...] SNOMED-CT Code Diagnosis ICD10 Code Diagnosis Note [id number] RON Azar [facility] [address] [place] [address] 11/09/2024 08:34:40 11/09/2024 14:27:44 Nausea and vomiting 62599840 R11.2 Long discussion today regarding adherence to advise diet kami [place]. Would advise patient is spend the next [...] UGI to further evaluate - pt request [facility].Alexander bowen is advised to call or go to the ED for any acute worsening of abdominal symptoms.Alexander bowen is to keep scheduled follow-up 11/17/2024 Mild dehydration 1310711 119 108 E86.0 Patient will have to a L normal saline IV rehydratio n today in office. History of gastrectomy 087687274 Z90.3 s/p TORI-s 10/16/24 [id number] RON Azar [facility] [address] [place] [address] 11/17/2024 08:51:00 11/17/2024 09:41:49 Disorder of function of stomach 334694207 K31.89 Long discussion with patient regarding fatigue [...] call for any worsening symptoms Essential hypertension 09150733 I10 Stop monitor and discussed with PCP Impaired g lucose tolerance 3249420 R73.03 History of gastrectomy 185961746 Z90.3 We discussed diet and the importance [...] to correct any vitamin deficienci es. At [facility] risk of nutritional deficit 742416906 Z91.89 Severe obesity 733680307 1 9104 E66.813 E66.01 Z68.[id number] [facility] Adv Surg [address] [place] [address] [address] [place] [address] 11/17/2024 09:37:00 11/17/2024 10:29:59 Diet education 50848489 Z71.3 [id number] RNO Azar [facility] [address] [place] [address] [address] [place] [address] 12/01/2024 09:40:04 12/01/2024 10:22:02 Nausea and vomiting 24219500 R11.2 Long discussion with patient regarding fatigue [...] has been resulted Nutritiona l deficiency state 58546475 E63.9 Encouraged patient see focus on p.o. intake. Advised she continue small frequent sips of protein drinks. History of gastrectomy 311353835 Z90.3 s/p Tori-s 10/16/24 with continued struggles including nausea vomiting p.o. intake.Carmen thorne had upper GIPatient will be scheduled for upper endoscopy for further evaluation Epigastric pain 23997575 R10.13 Advised patient to continue omeprazole . [...] atient is advised to go to this [place] ED for any acute worsening symptoms Health Concerns Section Related Observation LastModified by Organization Detai ls LastModified Time None Recorded Concern Status LastModified by Organization Details LastModified Time None Recorded Payers Encounter Date Sequence Insurance Name Policy Number Policy Sanchez Covered Member ID Sanchez Member ID Guarantor Name 12/01/2024 1 [facility] (MEDICAID REPLACEMENT - [place]MO) [place] Penelope Valdov[place]oston [id number] Penelope Christina Notes Date Note Type Note Provider Name and Address Organization Details Recorded Time 12/01/2024 text/html Patient presents today for sick visit s/p Tori-s 10/16// UGI (Read as ERIN HOPSON [facility]) No stricture identified no hiatal hernia normal [...] to return to work. 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 [...] incision.Path benign RON Azar [address], [place], [address], [facility] - [place] - [place] & [place] 12/01/2024 10:37:51 OBGyn Episode No OBEpisode recorded.
--- OUTSIDE RECORDS SUMMARY | 2024-12-28 12:47 | XMS_ITS | Continuity of Care Document ---
Author Organization [facility] Address [address] [place] [address] Care Team Providers Care Security Checker Name Role Phone KARLOS CHESTER Primary Care [...] serum 2024 025 [facility], [address], [address], [place], [address], 11/24/2024 18:36:58 prealbumi n, serum 2024 025 [facility], [address], [address], [place], [address], 11/24/2024 18:37:01 thiamine, QN, blood 2024 025 [facility], [address], [address], [place], [address], 11/24/2024 18:37:00 methylmal jeffrey, QN, serum or plasma 2024 025 [facility], [address], [address], [place], [address], 11/24/2024 18:37:00 CBC w/ auto diff 2024 025 [facility], [address], [address], [place], [address], 11/24/2024 18:36:56 CMP, serum or plasma 2024 025 [facility], [address], [address], [place], [address], 11/24/2024 18:36:57 iron + TIBC + ferritin, serum 2024 025 [facility], [address], [address], [place], [address], 11/24/2024 18:36:55 vitamin D, 25-hydrox y, total, serum 2024 025 [facility], [address], [address], [place], [address], 11/24/2024 18:36:59 vitamin E, serum 2024 025 [facility], [address], [address], [place], [address], 11/24/2024 18:36:57 vitamin A (retinol) , serum 2024 025 [facility], [address], [address], [place], [address], 11/24/2024 18:36:59 TSH + free T4, serum 2024 025 [facility], [address], [address], [place], [address], 11/24/2024 18:36:55 Referral None recorded. Procedures None recorded. Surgeries None recorded. Imaging None recorded. Medication Orders ondansetr on 8 mg disintegr ating tablet 2024 025 [facility], [address], [place], [address], 11/17/2024 09:24:21 Patient TargetsNo targets recorded. Patient InstructionsNo instructions recorded. Reason for Referral None Reported. Results Created Date Observation Date Name Description Value Unit Range Abnormal Flag Note LastModifiedBy Organization Detail LastModifiedTime 11/11/1911/10/2024 RF, upper gastr ointe yadira l tract , w/ air, w/ contr ast PO No observ ation record ed. [facility] [address], [place], [address], 11/14/2024 15:11:14 11/11/19 25 11/10/2024 RF, upper gastr ointe yadira l tract , w/ air, w/ contr ast PO No observ ation record ed. [facility] (Scheduling) [address], [place], [address], 11/14/2024 15:11:15 11/11/19 25 11/10/2024 RF, upper gastr ointe yadira l tract , w/ air, w/ contr ast PO No observ ation record ed. [email or web address] [facility] (Scheduling) [address], [place], [address], 11/10/2024 14:58:54 Result Notes None recorded. Problems Name Problem SNOMED Code Status Onset Date Resolution Date Notes Provider Name and Address Organization Details Recorded Time Essential hypertensi on 65245006 Active 2023 RON Azar [address], [place], [address] , [facility] & [place] 11/12/202 4 12:30:28 Obesity 729893286 Active 2023 RON Azar [address], [place], [address] , [place] - [facility] [place] & [place] 4 12:30:50 Disorder of function of stomach 385738010 Active 2023 RON Azar [address], [place], [address] , [place] [facility] [place] & [place] 4 12:30:50 Impaired glucose tolerance 5444489 Active 2023 RON Azar [address], [place], [address] , [place] [facility] [place] & [place] 4 12:31:02 Postoperat nicholas pain 092487445 Active 2024 RON Azar [address], [place], [address] , [place] [facility] [place] & [place] 5 08:04:37 Contact dermatitis 56236503 Active 2024 RON Azar [address], [place], [address] , [place] [facility] [place] & [place] 5 10:32:01 Nausea 287408940 Active 2024 RON Azar [address], [place], [address] , [place] [facility] [place] & [place] 5 09:06:20 Nausea and vomiting 00888462 Active 2024 RON Azar [address], [place], [address] , [place] [facility] [place] & [place] 5 10:19:41 Bilious vomiting 29900135 Active [address], [place], [address] , [place] [facility] [place] & [place] 5 09:06:37 Mild dehydratio n 7962716983954 Active 2024 RON Azar [address], [place], [address] , [place] [facility] [place] & [place] 5 09:09:44 Intentiona l weight loss 666516342 Active 2024 RON Azar [address], [place], [address] , [place] [facility] [place] & [place] 5 09:06:38 Body mass index 40+ - severely obese 577087527 Active 2024 RON Azar [address], [place], [address] , [place] [facility] [place] & [place] 5 09:07:05 Severe obesity 3656021574301 4 Active 2024 RON Azar [address], [place], [address] , [place] [facility] [place] & [place] 5 09:07:24 Nutritiona l deficiency state 40525978 Active 2024 RON Azar [address], [place], [address] , [place] [facility] [place] & [place] 5 10:04:26 Epigastric pain 11723876 Active 2024 RON Azar [address], [place], [address] , [place] [facility] [place] & [place] 5 10:16:35 Gestation period, 13 weeks 50970611 Active 2024 RON Azar [address], [place], [address] , [place] [facility] [place] & [place] 5 10:26:24 Paresthesi a of upper limb 08929970 Active 2023 Raquel Guillen DO [address], [place], [address] , [place] [facility] [place] & [place] 15:38:11 Problem Notes None recorded. Procedures Surgical History Date Name Laterality Status Provider Name and Address Organization Details Recorded Time 10/16/19 procedure on duodenum completed Parris Torres [facility] & [place] 11/09/2024 08:47:34 12/09/19 24 EMG/ Nerve Conduction Study completed Raquel Guillen DO [address], [place], [address], [facility] & [place] 12/09/2023 15:38:04 Cholecystectomy completed RON Azar [address], [place], [address], [facility] & [place] 07/04/2024 12:57:53 extraction of wisdom tooth completed Parris Torres [facility] & [place] 07/03/2024 15:07:44 Tonsillectomy completed Parris Torres [facility] & [place] 07/03/2024 15:07:52 procedure on ganglion cyst completed Stephanie Castro [facility] & [place] 10/04/2024 07:53:08 Imaging Results None recorded. Procedure [...] completed Not Available Not Available Not Available [facility] ODT 75 mg disintegrat ing tablet 12/27 completed Not Available Not Available Not Available Vitals Date Recorded Body height Body mass index (BMI) Body weight Heart rate Body temperature Systolic blood pressure Diastolic blood pressure Provider Name and Address Organization Details Last Updated DateTime 170.18 cm 42.1 kg/m2 558029. 55 g 126 /min 97.7 [degF] 151 mm[Hg] 103 mm[Hg] [facility] 09:02:32 Social History Question Answer Notes LastModified by Organizat ion Details LastModified Time Tobacco Smoking Status Never Smoker Parris Torres [facility] & [place] 07/03/2024 15:12:10 What Is Your Level Of Alcohol Consumption? Occasional [email or web address] Information not available 07/03/2024 What Is Your Level Of Caffeine Consumption? Occasional [email or web address] Information not available 07/04/2024 Do You Use Any Illicit Or Recreational Drugs? No [email or web address] Information not available 07/03/2024 Sex: Female Functional Status None recorded. Mental Status None recorded. Family History Relationship Description Onset Age of this Age Resolved Age Notes LastModified by Organization Details LastModified Time Father Hypertensive disorder [email or web address] Not available 06/2024 15:12:25 Father Hypercholest erolemia [email or web address] Not available 06/2024 15:12:51 Mother Hypertensive disorder [email or web address] Not available 06/2024 15:12:25 Mother Hypercholest erolemia Not available 06/2024 15:12:51 Mother Asthma [email or web address] Not availabl e 07/04/2024 13:49:15 Mother Chronic obstructive pulmonary disease Not available 06/2024 15:13:21 Maternal Grandmother Hypertensive disorder [email or web address] Not available 06/2024 15:12:25 Maternal Grandmother Chronic obstructive pulmonary disease [email or web address] Not available 06/2024 15:13:21 Maternal Grandfather Malignant neoplasm of lung [email or web address] Not available 06/23 13:49:15 Brother Asthma [email or web address] Not availab le 07/04/2024 13:49:15 Sister Asthma [email or web address] Not availabl e 07/04/2024 13:49:15 Medical History [...] SNOMED-CT Code Diagnosis ICD10 Code Diagnosis Note [id number] RON [facility]arw n [facility] [address] [facility] [address] [facility] [place] [address] 10/24/2024 07:55:40 10/24/2024 10:33:45 History of gastrectomy 269465090 Z90.3 Encouraged patient to continue focus on intake of adequate protein and hydration. Advised minimum 70 g of protein and 800 calories. Patient is to continue incentive spirometer for another 5-7 days Encouraged ambulation Patient is to start bariatric approved vitamin Follow up 3 weeks Contact dermatitis 00505 004 L25.9 Likely from surgical glue. Patient advised to keep area clean. She may apply Benadryl cream or calamine lotion. Advised she take Zyrtec q.a.m. and Benadryl q.p.m.. Advised she avoid scratching these areas. She is report any worsening symptoms. [id number] RON zAar n [facility] [address] [facility] [address] [facility] [place] [address] 11/09/2024 08:34:40 11/09/2024 14:27:44 Nausea and vomiting 71242711 R11.2 Long discussion today regarding adherence to [...] UGI to further evaluate - pt request [facility].Alexander bowen is advised to call or go to the ED for any acute worsening of abdominal symptoms.Alexander bowen is to keep scheduled follow-up 11/17/2024 Mild dehydration 4262827 119 108 E86.0 Patient will have to a L normal saline IV rehydratio n today in office. History of gastrectomy 436216494 Z90.3 s/p TORI-s 10/16/24 [id number] RON Azar [facility] Bariatric s and Adv Surg [address] [place] [address] 11/17/2024 08:51:00 11/17/2024 09:41:49 Disorder of function of stomach 910594063 K31.89 Long discussion with patient regarding fatigue [...] call for any worsening symptoms Essential hypertension 75553618 I10 Stop monitor and discussed with PCP Impaired g lucose tolerance 8565414 R73.03 History of gastrectomy 693838833 Z90.3 We discussed diet and the importance [...] to correct any vitamin deficienci es. At [facility] risk of nutritional deficit 691385303 Z91.89 Severe obesity 925487909 1 [address]104 E66.813 E66.01 Z68.[id number] [facility] Bariat[facility] s and Adv Surg [address] [place] [address] 11/17/2024 09:37:00 11/17/2024 10:29:59 Diet education 87619352 Z71.3 Health Concerns Section Related Observation LastModified by Organization Detai ls LastModified Time None Recorded Concern Status LastModified by Organization Details LastModified Time None Recorded Payers Encounter Date Sequence Insurance Name Policy Number Policy Sanchez Covered Member ID Sanchez Member ID Guarantor Name 11/17/2024 1 [facility] (MEDICAID [facility]PLACEMENT - HMO) MARY Christina [id number] Penelope Christina Notes Date Note Type Note [...] to return to work. 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
--- OUTSIDE RECORDS SUMMARY | 2024-12-28 12:47 | XMS_ITS | Continuity of Care Document ---
Author Organization [place] - [place] [facility] Address [address] [place] [address] Care Team Providers Care Cadmium Burner Name Role Phone KARLOS CHESTER Primary Care Provider [phone] Assessment No assessment recorded. Plan of Treatment Reminders Order Date Submit Date Provider Last Modified By Organization Details Last Modified Time Details Appointments OV EST 2024 10:00A M ANAIS Azar Not available Not available Not available OV EST 2024 10:20A M [address] Not available Not available Not available OV EST 20 2024 01:20P M ANAIS Azar Not available Not available Not available OV EST 20 2024 01:40P M [address] Not available Not available Not available Lab None recorded. Referral None recorded. Procedures None recorded. Surgeries None recorded. Imaging RF, upper gastroint estinal tract, w/ air, w/ contrast PO 2024 025 [facility] ([facility] [address], [place], [address], 11/10/2024 12:55:13 Medication Orders Carafate [address] gram tablet [address] [facility], [address], [place], [address], 12/27/2024 09:50:53 Patient TargetsNo targets recorded. Patient InstructionsNo instructions recorded. Reason for Referral None Reported. Results Created Date Observation Date Name Description Value Unit Range Abnormal Flag Note LastModifiedBy Organization Detail LastModifiedTime 11/11/19 25 11/10/2024 RF, upper gastr ointe yadira l tract , w/ air, w/ contr ast PO No observ ation record ed. [facility] [address], [place], [address], 11/14/2024 15:11:14 11/11/19 25 11/10/2024 RF, upper gastr ointe yadira l tract , w/ air, w/ contr ast PO No observ ation record ed. [facility] (Scheduling) [address], [place], [address], 11/14/2024 15:11:15 11/11/19 25 11/10/2024 RF, upper gastr ointe yadira l tract , w/ air, w/ contr ast PO No observ ation record ed. [email or web address] [facility] (Scheduling) [address], [place], [address], 11/10/2024 14:58:54 Result Notes None recorded. Problems Name Problem SNOMED Code Status Onset Date Resolution Date Notes Provider Name and Address Organization Details Recorded Time Essential hypertensi on 23544299 Active [address], [place], [address] , [place] [facility] & [place] 4 12:30:28 Obesity 801716622 Active [address], [place], [address] , [place] - [facility] - [place] & [place] 4 12:30:50 Disorder of function of stomach 440666647 Active [address], [place], [address] , [place] [facility] [place] & [place] 4 12:30:50 Impaired glucose tolerance 9970383 Active [address], [place], [address] , [place] [facility] [place] & [place] 4 12:31:02 Postoperat nicholas pain 888555778 Active 2024 ANAIS Azar [address] [facility], [place], [address] , [place] [facility] [place] & [place] 5 08:04:37 Contact dermatitis 20914121 Active 2024 ANAIS Azar [address] [facility], [place], [address] , [place] [facility] [place] & [place] 5 10:32:01 Nausea 207042981 Active 2024 ANAIS Azar [facility], [place], [address] , [place] [facility] [place] & [place] 5 09:06:20 Nausea and vomiting 69466388 Active 2024 ANAIS Azar [address], [place], [address] , [place] [facility] [place] & [place] 5 10:19:41 Bilious vomiting 94595203 Active 2024 ANAIS Azar [address] [facility], [place], [address] , [place] [facility] [place] & [place] 5 09:06:37 Mild dehydratio n 1382687438861 [facility] [place], [address] , [place] [facility] - [place] & [place] 5 09:09:44 Intentiona l weight loss 796525127 [facility] [place], [address] , [place] [facility] - [place] & [place] 5 09:06:38 Body mass index 40+ - severely obese 264352624 Active [address], [place], [address] , [place] [facility] [place] & [place] 5 09:07:05 Severe obesity 4893910719713 4 Active 2024 ANAIS Azar [address], [place], [address] , [place] [facility] [place] & [place] 5 09:07:24 Nutritiona l deficiency state 06532516 Active 2024 ANAIS Azar [address], [place], [address] , [place] [facility] [place] & [place] 5 10:04:26 Epigastric pain 13799944 Active 2024 ANAIS Azar [address], [place], [address] , [place] [facility] [place] & [place] 5 10:16:35 Gestation period, 13 weeks 11279306 Active 2024 ANAIS Azar [address], [place], [address] , [place] [facility] [facility] & [place] 5 10:26:24 Paresthesi a of upper limb 96216898 Active 2023 Raquel Guillen DO [address] , [place], [address] , [place] [facility] [facility] & [place] 4 15:38:11 Problem Notes None recorded. Procedures Surgical History Date Name Laterality Status Provider Name and Address Organization Details Recorded Time 10/16/19 25 procedure on duodenum completed Parris Torres [place] [facility] [facility] & [place] 11/09/2024 08:47:34 12/09/19 24 EMG/ Nerve Conduction Study completed DO [address], [place], [address], [place] [facility] - [place] & [place] 12/09/2023 15:38:[address] completed [address], [place], [address], [facility] & [place] 07/04/2024 12:57:53 extraction of wisdom tooth completed Parris Torres [facility] & [place] 07/03/2024 15:07:44 Tonsillectomy completed Parris Torres [facility] & [place] 07/03/2024 15:07:52 procedure on ganglion cyst completed Stephanie Castro [facility] & [place] 10/04/2024 07:53:08 Imaging Results None [...] Nurtec ODT 75 mg disintegrat ing tablet 05/07 /2025 completed Not Available Not Available Not Available Vitals Date Recorded Body height Body mass index (BMI) Body weight Body temperature Heart rate Systolic blood pressure Diastolic blood pressure Provider Name and Address Organization Details Last Updated DateTime 5 170.18 cm 43 kg/m2 634983. 11 g 97.5 [degF] 92 /min 147 mm[Hg] 98 mm[Hg] Parris Torres [facility] & [place] 5 08:47:54 Social History Question Answer Notes LastModified by Organizat ion Details LastModified Time Tobacco Smoking Status Never Smoker Parris Torres null, [facility] & [place] 07/03/2024 15:12:10 What Is Your Level Of Alcohol Consumption? Occasional [email or web address] Information not available 07/03/2024 What Is Your Level Of Caffeine Consumption? Occasional [email or web address] Information not available 07/04/2024 Do You Use Any Illicit Or Recreational Drugs? No [email or web address] Information not available 07/03/2024 Sex: Female Functional Status None recorded. Mental Status None recorded. Family History Relationship Description Onset Age of this Age Resolved Age Notes LastModified by Organization Details LastModified Time Father Hypertensive disorder [email or web address] Not available 06/2024 15:12:25 Father Hypercholest erolemia [email or web address] Not available 06/2024 15:12:51 Mother Hypertensive disorder [email or web address] Not available 06/2024 15:12:25 Mother Hypercholest erolemia [email or web address] Not available 06/2024 15:12:51 Mother Asthma [email or web address] Not availabl e 07/04/2024 13:49:15 Mother Chronic obstructive pulmonary disease [email or web address] Not available 06/2024 15:13:21 Maternal Grandmother Hypertensive disorder [email or web address] Not available 06/2024 15:12:25 Maternal Grandmother Chronic obstructive pulmonary disease Not available 06/2024 15:13:21 Maternal Grandfather Malignant neoplasm of lung Not available 06/23 13:49:15 Brother Asthma [email or web address] Not availab le 07/04/2024 13:49:15 Sister Asthma [email or web address] Not availabl e 07/04/2024 13:49:15 Medical History [...] SNOMED-CT Code Diagnosis ICD10 Code Diagnosis Note [id number] ANAIS Azar [facility] Bariat[facility] s and Adv Surg [address] [place] [address] [address] [place] [address] 10/24/2024 07:55:40 10/24/2024 10:33:45 History of gastrectomy 607491654 Z90.3 Encouraged patient to continue focus on intake of adequate protein and hydration. Advised minimum 70 g of protein and 800 calories. Patient is to continue incentive spirometer for another 5-7 days Encouraged ambulation Patient is to start bariatric approved vitamin Follow up 3 weeks Contact dermatitis 39715 004 L25.9 Likely from surgical glue. Patient advised to keep area clean. She may apply Benadryl cream or calamine lotion. Advised she take Zyrtec q.a.m. and Benadryl q.p.m.. Advised she avoid scratching these areas. She is report any worsening symptoms. [id number] [facility] [address] [facility] [address] [place] [address] 11/09/2024 08:34:40 11/09/2024 14:27:44 Nausea and vomiting 14599791 R11.2 Long discussion today regarding adherence to [...] UGI to further evaluate - pt request [facility].P andrés is advised to call or go to the ED for any acute worsening of abdominal symptoms.Alexander bowen is to keep scheduled follow-up 11/17/2024 Mild dehydration 2106060 119 108 E86.0 Patient will have to a L normal saline IV rehydratio n today in office. History of gastrectomy 188092851 Z90.3 s/p TORI-s 10/16/24 Health Concerns Section Related Observation LastModified by Organization Detai ls LastModified Time None Recorded Concern Status LastModified by Organization Details LastModified Time None Recorded Payers Encounter Date Sequence Insurance Name Policy Number Policy Sanchez Covered Member ID Sanchez Member ID Guarantor Name 11/09/2024 1 [facility] (MED[place]ID REPLACEMENT - HMO) MARY [place] [id number] Penelope Christina Notes Date Note Type Note Provider Name and Address Organization Details Recorded Time 11/09/2024 text/html Patient presents today as sick visit. She is s/p Tori-s 10/16/24Patient states she went to [facility] ED last night for nausea [...] has removed glue from each incision.Path benign ANAIS Azar [address], [place], [address], [facility] - [place] & [place] 11/09/2024 13:41:24 OBGyn Episode No OBEpisode recorded.
--- NOTE | 2024-12-28 13:00 | US_ITS ---
PROCEDURE: US OB <= 14 WEEKS FETUS CLINICAL INDICATION: 2 weeks; growth and viability COMPARISON: US US OB <= 14 WEEKS FETUS from 12/14/2024 FINDINGS: Transvaginal sonographic images of the pelvis were obtained. From her last menstrual period she is 13weeks 2days. An intrauterine gestational sac is present with a pole with a crown-rump length of 7.27cm This correlates to a gestational age of 13weeks 3days. heart tones are present with an FHR of 158bpm. Yolk sac is no longer seen. Subchorionic hemorrhage is still seen and appear smaller in size. It no longer completely surrounds the gestational sac. There is ground-glass appearance to the subchorionic hemorrhage. It appears to be a resolving hematoma. It measures 5.0 cm by 2.8 cm. The ovaries are not visualized today. IMPRESSION: 1. Viable fetus within the uterine cavity. There has been good interval growth of the fetus over the last 2 weeks. 2. There continues to be a hematoma in the superior aspect of the uterus. The hematoma seems to be smaller and no longer completely surrounds a gestational sac. The fluid within the subchorionic hemorrhage has a ground-glass appearance consistent with a resolving hematoma. 3. Ovaries were not visualized today. 4. Suggest continued follow-up to see the resolution of this subchorionic hemorrhage. Dictated by: Gerber Mcgrath MD 12/29/2024 08:13 Gerber Mcgrath MD in OV 12/29/2024 08:13
== END 2024-12-28 23:59 | disposition home or self-care (01) ==
LOC: RAD 12:45
PROVIDERS: PCP Nurse Practitioner Family; Visit Provider Obstetrics & Gynecology
DX: Z36.89 Encounter for other specified antenatal screening (principal); Z33.1 Pregnant state, incidental; Z3A.13 13 weeks gestation of pregnancy
CPT/HCPCS: 76801

== ENCOUNTER 2024-12-31 00:13 | Emergency (ER) | payer OTHER, SELFPAY ==
--- OUTSIDE RECORDS SUMMARY | 2024-12-31 00:18 | XMS_ITS | Continuity of Care Document ---
Author Organization [place] - [facility] & [facility] Bariatrics and Adv Surg Address [address] [facility] [address] [place] [address] Care Team Providers Care Product Communications Manager Name Role Phone KARLOS CHESTER Primary Care [...] further questions/concerns . Pt reports that social media assistant did reach out to her but there [...] Modified Time Details Appointments OV EST 025 01:20PM RON Azar Not [...] ast PO No observ ation record ed. [facility] [address], [place], [address], 11/14/2024 15:11:14 11/11/19 25 11/10/2024 RF, upper gastr ointe yadira l tract , w/ air, w/ contr ast PO No observ ation record ed. [facility] (Scheduling) [address], [place], [address], 11/14/2024 15:11:15 11/11/19 25 11/10/2024 RF, upper gastr ointe yadira l tract , w/ air, w/ contr ast PO No observ ation record ed. [email or web address] [facility] (Scheduling) [address], [place], [address], 11/10/2024 14:58:54 Result Notes None recorded. Problems Name Problem SNOMED Code Status Onset Date Resolution Date Notes Provider Name and Address Organization Details Recorded Time Essential hypertensi on 87490426 Active [address], [place], [address] , [place] - [facility] & [place] 4 12:30:28 Obesity 015931542 Active [address], [place], [address] , [place] [facility] & [place] 4 12:30:50 Disorder of function of stomach 229720709 Active [address], [place], [address] , [place] [facility] & [place] 4 12:30:50 Impaired glucose tolerance 1228390 Active [address], [place], [address] , [place] [facility] & [place] 4 12:31:02 Postoperat nicholas pain 658291332 Active [address], [place], [address] , [place] [facility] & [place] 5 08:04:37 Contact dermatitis 24123920 Active [address], [place], [address] , [place] [facility] & [place] 5 10:32:01 Nausea 544575376 Active [address], [place], [address] , [place] [facility] & [place] 5 09:06:20 Nausea and vomiting 06998435 Active [address], [place], [address] , [place] [facility] & [place] 5 10:19:41 Bilious vomiting 06239359 Active [address], [place], [address] , [place] [facility] & [place] 5 09:06:37 Mild dehydratio n 7415117089277 Active [address], [place], [address] , [place] [facility] & [place] 5 09:09:44 Intentiona l weight loss 200472773 Active [address], [place], [address] , [place] [facility] & [place] 5 09:06:38 Body mass index 40+ - severely obese 472410278 Active 2024 [address], [place], [address] , [place] [facility] [place] & [place] 5 09:07:05 Severe obesity 0039183199669 4 Active 2024 [address], [place], [address] , [place] [facility] & [place] 5 09:07:24 Nutritiona l deficiency state 46521928 Active 2024 [address], [place], [address] , [place] [facility] & [place] 5 10:04:26 Epigastric pain 31651751 Active 2024 [address], [place], [address] , [place] [facility] & [place] 5 10:16:35 Gestation period, 13 weeks 90073065 Active 2024 [address], [place], [address] , [place] [facility] & [place] 5 10:26:24 Paresthesi a of upper limb 82464633 Active [address], [place], [address] , [place] [facility] [place] & [place] 4 15:38:11 Problem Notes None recorded. Procedures Surgical History Date Name Laterality Status Provider Name and Address Organization Details Recorded Time 10/16/19 25 procedure on duodenum completed Parris Torres [place] - [facility] - [place] & [place] 11/09/2024 08:47:34 12/09/19 24 EMG/ Nerve Conduction Study completed DO [address], [place], [address], [facility] & [place] 12/09/2023 15:38:04 Cholecystectomy completed RON Azar [address], [place], [address], [facility] & [place] 07/04/2024 12:57:53 extraction of wisdom tooth completed Parris Torres [facility] & [place] 07/03/2024 15:07:44 Tonsillectomy completed Parris Torres [facility] & [place] 07/03/2024 15:07:52 procedure on ganglion cyst completed Stephanie Castro [facility] & [place] 10/04/2024 07:53:08 Imaging Results None recorded. Procedure [...] completed Not Available Not Available Not Available [facility] ODT 75 mg disintegrat ing tablet 12/27 completed Not Available Not Available Not Available Vitals Date Recorded Body height Body mass index (BMI) Body weight Heart rate Body temperature Systolic blood pressure Diastolic blood pressure Provider Name and Address Organization Details Last Updated DateTime 5 170.18 cm 42.1 kg/m2 038662. 55 g 126 /min 97.7 [degF] 151 mm[Hg] 103 mm[Hg] Jessica Mcnally [facility] & [place] 5 09:02:32 Social History Question Answer Notes LastModified by Organizat ion Details LastModified Time Tobacco Smoking Status Never Smoker Parris Torres [facility], [facility] & [place] 07/03/2024 15:12:10 What Is Your Level Of Alcohol Consumption? Occasional [email or web address] Information not available 07/03/2024 What Is Your Level Of Caffeine Consumption? Occasional [email or web address] Information not available 07/04/2024 Do You Use Any Illicit Or Recreational Drugs? No [email or web address] Information not available 07/03/2024 Sex: Female Functional Status None recorded. Mental Status None recorded. Family History Relationship Description Onset Age of this Age Resolved Age Notes LastModified by Organization Details LastModified Time Father Hypertensive disorder [email or web address] Not available 06/2024 15:12:25 Father Hypercholest erolemia [email or web address] Not available 06/2024 15:12:51 Mother Hypertensive disorder [email or web address] Not available 06/2024 15:12:25 Mother Hypercholest erolemia Not available 06/2024 15:12:51 Mother Asthma [email or web address] Not availabl e 07/04/2024 13:49:15 Mother Chronic obstructive pulmonary disease [email or web address] Not available 06/2024 15:13:21 Maternal Grandmother Hypertensive disorder [email or web address] Not available 06/2024 15:12:25 Maternal Grandmother Chronic obstructive pulmonary disease [email or web address] Not available 06/2024 15:13:21 Maternal Grandfather Malignant neoplasm of lung Not available 06/23 13:49:15 Brother Asthma [email or web address] Not availab le 07/04/2024 13:49:15 Sister Asthma [email or web address] Not availabl e 07/04/2024 13:49:15 Medical History [...] SNOMED-CT Code Diagnosis ICD10 Code Diagnosis Note [id number] RON Azar [facility]ariat[facility] s and Adv Surg [address] [facility] [address] [place] [address] 10/24/2024 07:55:40 10/24/2024 10:33:45 History of gastrectomy 419023332 Z90.3 Encouraged patient to continue focus on intake of adequate protein and hydration. Advised minimum 70 g of protein and 800 calories. Patient is to continue incentive spirometer for another 5-7 days Encouraged ambulation Patient is to start bariatric approved vitamin Follow up 3 weeks Contact dermatitis 35975 004 L25.9 Likely from surgical glue. Patient advised to keep area clean. She may apply Benadryl cream or calamine lotion. Advised she take Zyrtec q.a.m. and Benadryl q.p.m.. Advised she avoid scratching these areas. She is report any worsening symptoms. [id number] RON Azar samira [facility]ariat[facility] s [facility] Adv Surg [address] [facility] [address] [place] [address] 11/09/2024 08:34:40 11/09/2024 14:27:44 Nausea and vomiting 08422450 R11.2 Long discussion today regarding adherence to [...] UGI to further evaluate - pt request James Perry.Alexander andrés is advised to call or go to the ED for any acute worsening of abdominal symptoms.Alexander bowen is to keep scheduled follow-up 11/17/2024 Mild dehydration 8672815 119 108 E86.0 Patient will have to a L normal saline IV rehydratio n today in office. History of gastrectomy 069769276 Z90.3 s/p TORI-s 10/16/24 [id number] RON Azar [facility] Adv S[facility] [address] [place] [address] 11/17/2024 08:51:00 11/17/2024 09:41:49 Disorder of function of stomach 287340334 K31.89 Long discussion with patient regarding fatigue [...] call for any worsening symptoms Essential hypertension 78817563 I10 Stop monitor and discussed with PCP Impaired g lucose tolerance 8837442 R73.03 History of gastrectomy 628151239 Z90.3 We discussed diet and the importance [...] to correct any vitamin deficienci es. At [facility] ed risk of nutritional deficit 629904240 Z91.89 Severe obesity 795935043 1 [address]104 E66.813 E66.01 Z68.[id number] [facility] Bariatric s and Adv Surg [address] [place] [address] 11/17/2024 09:37:00 11/17/2024 10:29:59 Diet education 14796266 Z71.3 Health Concerns Section Related Observation LastModified by Organization Detai ls LastModified Time None Recorded Concern Status LastModified by Organization Details LastModified Time None Recorded Payers Encounter Date Sequence Insurance Name Policy Number Policy Sanchez Covered Member ID Sanchez Member ID Guarantor Name 11/17/2024 1 [facility] (MEDICAID REPLACEMENT - HMO) [id number] Penelope Samira Christina [id number] Penelope Christina Notes Date Note Type Note [...] to return to work. 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
--- OUTSIDE RECORDS SUMMARY | 2024-12-31 00:18 | XMS_ITS | Continuity of Care Document ---
Author Organization [facility] & [facility] Bariatrics and Adv Surg Address [address] [place] [address] Care Team Providers Care Guide Tour Name Role Phone KARLOS CHESTER Primary Care [...] Organization Details Recorded Time Essential hypertensi on 19465229 Active 2023 RON [address], [place], [address] , [facility] & [place] 12:30:28 Obesity 851582064 Active 2023 RON [address], [place], [address] , [facility] & [place] 4 12:30:50 Disorder of function of stomach 262393039 Active 2023 [address], [place], [address] , [facility] - NT [facility] & [place] 4 12:30:50 Impaired glucose tolerance 6260444 Active 2023 RON [address], [place], [address] , [place] [facility] & [place] 4 12:31:02 Postoperat nicholas pain 888166742 Active [address], [place], [address] , [place] [facility] & [place] 5 08:04:37 Contact dermatitis 27154123 Active [address], [place], [address] , [place] [facility] & [place] 5 10:32:01 Nausea 404238594 Active [address], [place], [address] , [place] [facility] & [place] 5 09:06:20 Nausea and vomiting 41322810 Active [address], [place], [address] , [place] [facility] & [place] 5 10:19:41 Bilious vomiting 07780827 Active [address], [place], [address] , [place] [facility] & [place] 5 09:06:37 Mild dehydratio n 4119833461482 Active [address], [place], [address] , [place] [facility] & [place] 5 09:09:44 Intentiona l weight loss 965711962 Active [address], [place], [address] , [place] [facility] & [place] 5 09:06:38 Body mass index 40+ - severely obese 829103573 Active 2024 RON Azar [address], [place], [address] , [place] [facility] & [place] 5 09:07:05 Severe obesity 3941129642017 4 [address], [place], [address] , [place] [facility] [facility] & [place] 5 09:07:24 Nutritiona l deficiency state 74868503 Active [address], [place], [address] , [facility] - [facility] & [place] 5 10:04:26 Epigastric pain 91131286 Active [address], [place], [address] , [place] [facility] & [place] 5 10:16:35 Gestation period, 13 weeks 46591409 Active [address], [place], [address] , [place] [facility] [facility] & [place] 5 10:26:24 Paresthesi a of upper limb 85085874 Active [address], [place], [address] , [place] [facility] & [place] 4 15:38:11 Problem Notes None recorded. Procedures Surgical History Date Name Laterality Status Provider Name and Address Organization Details Recorded Time 10/16/19 25 procedure on duodenum completed Parris Torres [facility] & [place] 11/09/2024 08:47:34 12/09/19 24 EMG/ Nerve Conduction Study completed DO [address], [place], [address], [place] [facility] & [place] 12/09/2023 15:38:04 Cholecystectomy completed RON Azra [address] [facility], [place], [address], [facility] & [place] 07/04/2024 12:57:53 extraction of wisdom tooth completed Parris Torres [facility] & [place] 07/03/2024 15:07:44 Tonsillectomy completed Parris Torres [facility] & [place] 07/03/2024 15:07:52 procedure on ganglion cyst completed Stephanie Matthew [facility] & [place] 10/04/2024 07:53:08 Imaging [...] completed Not Available Not Available Not Available [facility] ODT 75 mg disintegrat ing tablet 12/27 completed Not Available Not Available Not Available Vitals Date Recorded Body height Body temperature Heart rate Body mass index (BMI) Body weight Systolic blood pressure Diastolic blood pressure Provider Name and Address Organization Details Last Updated DateTime 5 170.18 cm 97.1 [degF] 91 /min 40.5 kg/m2 953319. 35 g 141 mm[Hg] 100 mm[Hg] Stephanie Castro [facility] & [place] 5 09:49:04 Social History Question Answer Notes LastModified by Organizat ion Details LastModified Time Tobacco Smoking Status Never Smoker Parris Torres [facility] & [place] 07/03/2024 15:12:10 What Is Your Level Of Alcohol Consumption? Occasional [email or web address] Information not available 07/03/2024 What Is Your Level Of Caffeine Consumption? Occasional [email or web address] Information not available 07/04/2024 Do You Use Any Illicit Or Recreational Drugs? No [email or web address] Information not available 07/03/2024 Sex: Female Functional Status None recorded. Mental Status None recorded. Family History Relationship Description Onset Age of this Age Resolved Age Notes LastModified by Organization Details LastModified Time Father Hypertensive disorder [email or web address] Not available 06/2024 15:12:25 Father Hypercholest erolemia [email or web address] Not available 06/2024 15:12:51 Mother Hypertensive disorder [email or web address] Not available 06/2024 15:12:25 Mother Hypercholest erolemia [email or web address] Not available 06/2024 15:12:51 Mother Asthma [email or web address] Not availabl e 07/04/2024 13:49:15 Mother Chronic obstructive pulmonary disease [email or web address] Not available 06/2024 15:13:21 Maternal Grandmother Hypertensive disorder [email or web address] Not available 06/2024 15:12:25 Maternal Grandmother Chronic obstructive pulmonary disease Not available 06/2024 15:13:21 Maternal Grandfather Malignant neoplasm of lung [email or web address] Not available 06/23 13:49:15 Brother Asthma [email or web address] Not availab le 07/04/2024 13:49:15 Sister Asthma [email or web address] Not availabl e 07/04/2024 13:49:15 Medical History [...] SNOMED-CT Code Diagnosis ICD10 Code Diagnosis Note [id number] RON Azar [facility] Adv S[facility] [address] [facility] [address] [facility] [place] [address] 12/01/2024 09:40:04 12/01/2024 10:22:02 Nausea and vomiting 97186071 R11.2 Long discussion with patient regarding fatigue [...] has been resulted Nutritiona l deficiency state 78072484 E63.9 Encouraged patient see focus on p.o. intake. Advised she continue small frequent sips of protein drinks. History of gastrectomy 770867877 Z90.3 s/p Tori-s 10/16/24 with continued struggles including nausea vomiting p.o. intake.Carmen thorne had upper GIPatient will be scheduled for upper endoscopy for further evaluation Epigastric pain 75357366 R10.13 Advised patient to continue omeprazole . [...] atient is advised to go to this [facility] for any acute worsening symptoms [id number] [facility] Bariatric s and Adv Surg [address] [facility] [address] [place] [address] 12/27/2024 09:45:05 12/27/2024 11:07:46 Diet education 03218523 Z71.3 [id number] RON Azar [facility] Bariatric s and Adv Surg [address] [place] [address] 12/27/2024 09:47:12 12/27/2024 12:24:19 Gestation period, 13 weeks 74798485 Z3A.[address] Guillen today.Advi sed to continue vitamins. Next labs due January 2025Pt has appt with lead quality control technician today to discuss caloric need. Advise minimal 8679-5776 calories daily and 90 g proteinPt has electrical high tension tester appt today [place] to establish carePt given copy of recent labs to share with OB History of gastrectomy 080943112 Z90.3 s/p Tori-s 10/16/24Fol lowup with labs January 2025 Health Concerns Section Related Observation LastModified by Organization Detai ls LastModified Time None Recorded Concern Status LastModified by Organization Details LastModified Time None Recorded Payers Encounter Date Sequence Insurance Name Policy Number Policy Sanchez Covered Member ID Sanchez Member ID Guarantor Name 12/27/2024 1 [facility] ([place] - [place] MARY Christina [id number] Penelope Christina Notes Date Note Type Note [...] Tori-s 10/16/ UGI (Read as [facility]) No stricture identified no hiatal hernia [...] to return to work. 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 [...] s/p Tori-s 10/16/24Patient states she went to [facility] ED last night for nausea and [...] from each incision.Path benign RON Azar [address] [facility], [place], [address], [place] [facility] - [place] & [place] 12/27/2024 10:31:49 12/27/2024 text/html RDN met w/ [...] minutes and eating once every hourmorning: sausage burritovalentinadin ner: 3 course mealprotein shakes sometimes - corepowerdoing regular chocolate milk Drinks: body armor, water, sprite zero to help nausea Foods Not Tolerated: none noted Additional notes/concerns: Able to get food stamps and getting WIC, [place], housing assistance [address], [address], [place], [address], [facility] - [place] & [place] 12/27/2024 11:07:36 OBGyn Episode No OBEpisode recorded.
--- OUTSIDE RECORDS SUMMARY | 2024-12-31 00:19 | XMS_ITS | Continuity of Care Document ---
Author Organization [facility] Address [address] [facility] [place] [address] Care Team Providers Care Manager Utilization Management Name Role Phone KARLOS CHESTER Primary Care Provider Assessment No assessment recorded. Plan of Treatment Reminders Order Date Submit Date Provider Last Modified By Organization Details Last Modified Time Details Appointments OV EST 2024 01:20P M RON Azar Not available Not available Not available OV EST 2024 01:40P M [address] Not available Not available Not available Lab magnesium , serum or plasma 2024 025 [facility], [address] [place] [address], [id number], 12/08/2024 04:11:53 phosphoru s, serum or plasma 2024 025 [facility], [address] [place] [address], [address], 12/08/2024 04:11:53 CBC w/ auto diff 2024 025 [facility], [address], [place], [address], 12/02/2024 03:38:32 CMP, serum or plasma 2024 025 [facility], [address], [place], [address], 12/02/2024 03:38:33 Referral None recorded. Procedures None recorded. Surgeries esophagog astroduod enoscopy (SURG) 2024 025 earl Rubi MD, [address], [place], [address], 12/15/2024 11:34:18 Imaging None recorded. Medication Orders thiamine HCl (vitamin B1) 100 mg/mL injection solution 2024 025 [email or web address] Not available 12/27/2024 09:50:37 cyanocoba yves (vit B-12) 1,000 mcg/mL injection solution 2024 025 Not available 12/27/2024 09:50:09 Compazine 5 mg tablet 2024 025 [facility], [address], [place], [address], 12/01/2024 10:20:25 Patient TargetsNo targets recorded. Patient InstructionsNo instructions recorded. Reason for Referral None Reported. Results Created Date Observation Date Name Description Value Unit Range Abnormal Flag Note LastModifiedBy Organization Detail LastModifiedTime 11/11/1911/10/2024 RF, upper gastr ointe yadira l tract , w/ air, w/ contr ast PO No observ ation record ed. [facility] [address], [place], [address], 11/14/2024 15:11:14 11/11/19 25 11/10/2024 RF, upper gastr ointe yadira l tract , w/ air, w/ contr ast PO No observ ation record ed. [facility] (Scheduling) [address], [place], [address], 11/14/2024 15:11:15 11/11/19 25 11/10/2024 RF, upper gastr ointe yadira l tract , w/ air, w/ contr ast PO No observ ation record ed. [email or web address] [facility]) [address], [place], [address], 11/10/2024 14:58:54 Result Notes None recorded. Problems Name Problem SNOMED Code Status Onset Date Resolution Date Notes Provider Name and Address Organization Details Recorded Time Essential hypertensi on 94523749 Active [address], [place], [address] , [place] - [facility] - [place] & [place] 4 12:30:28 Obesity 331965897 Active [address], [place], [address] , [place] [facility] [place] & [place] 4 12:30:50 Disorder of function of stomach 148825830 Active [address], [place], [address] , [place] & [place] 4 12:30:50 Impaired glucose tolerance 7431117 Active [address], [place], [address] , [place] [facility] & [place] 4 12:31:02 Postoperat nicholas pain 004353299 Active [address], [place], [address] , [place] [facility] [place] & [place] 5 08:04:37 Contact dermatitis 57927793 Active [address], [place], [address] , [place] [facility] & [place] 5 10:32:01 Nausea 758714659 Active [address], [place], [address] , [place] & [place] 5 09:06:20 Nausea and vomiting 64252003 Active 2024 RON [address], [place], [address] , [place] & [place] 5 10:19:41 Bilious vomiting 84593769 Active 2024 RON [address], [place], [address] , [place] & [place] 5 09:06:37 Mild dehydratio n 9956677567114 Active [address], [place], [address] , [place] & [place] 5 09:09:44 Intentiona l weight loss 354372985 Active [address], [place], [address] , [place] 5 09:06:38 Body mass index 40+ - severely obese 953544618 Active 2024 RON [address], [place], [address] , [place] 5 09:07:05 Severe obesity 1191431376106 4 [address], [place], [address] , [place] & [place] 5 09:07:24 Nutritiona l deficiency state 27564791 Active [address], [place], [address] , [place] 5 10:04:26 Epigastric pain 29987742 Active [address], [place], [address] , [place] & [place] 5 10:16:35 Gestation period, 13 weeks 49520139 Active 2024 RON [address], [facility] [address] , [facility] & [place] 5 10:26:24 Paresthesi a of upper limb 77729559 Active 2023 Raquel Guillen DO [address], [facility] [address] , [facility] & [place] 4 15:38:11 Problem Notes None recorded. Procedures Surgical History Date Name Laterality Status Provider Name and Address Organization Details Recorded Time 10/16/19 25 procedure on duodenum completed Parris Torres [facility] & [place] 11/09/2024 08:47:34 12/09/19 24 EMG/ Nerve Conduction Study completed Raquel Guillen DO [address], [facility] [address], [facility] & [place] 12/09/2023 15:38:04 Cholecystectomy completed RON Azar [address], [facility] [address], [facility] & [place] 07/04/2024 12:57:53 extraction of wisdom tooth completed Parris Torres [facility] & [place] 07/03/2024 15:07:44 Tonsillectomy completed Parris GUTHRIE [facility] & [place] 07/03/2024 15:07:52 procedure on ganglion cyst completed Stephanie Castro [facility] & [place] 10/04/2024 07:53:08 Imaging Results None recorded. Procedure [...] cm 97.3 [degF] 96 /min 41.5 kg/m2 042705. 98 g 120 mm[Hg] 84 mm[Hg] Lorne Hernández-Bec litzy [facility][1] 5 09:49:02 Social History Question Answer Notes LastModified by Organizat ion Details LastModified Time Tobacco Smoking Status Never Smoker Parris neely, [facility] & [place] 07/03/2024 15:12:10 What Is Your Level Of Alcohol Consumption? Occasional [email or web address] Information not available 07/03/2024 What Is Your Level Of Caffeine Consumption? Occasional [email or web address] Information not available 07/04/2024 Do You Use Any Illicit Or Recreational Drugs? No [email or web address] Information not available 07/03/2024 Sex: Female Functional Status None recorded. Mental Status None recorded. Family History Relationship Description Onset Age of this Age Resolved Age Notes LastModified by Organization Details LastModified Time Father Hypertensive disorder [email or web address] Not available 06/2024 15:12:25 Father Hypercholest erolemia [email or web address] Not available 06/2024 15:12:51 Mother Hypertensive disorder [email or web address] Not available 06/2024 15:12:25 Mother Hypercholest erolemia [email or web address] Not available 06/2024 15:12:51 Mother Asthma [email or web address] Not availabl e 07/04/2024 13:49:15 Mother Chronic obstructive pulmonary disease [email or web address] Not available 06/2024 15:13:21 Maternal Grandmother Hypertensive disorder [email or web address] Not available 06/2024 15:12:25 Maternal Grandmother Chronic obstructive pulmonary disease [email or web address] Not available 06/2024 15:13:21 Maternal Grandfather Malignant neoplasm of lung [email or web address] Not available 06/23 13:49:15 Brother Asthma [email or web address] Not availab le 07/04/2024 13:49:15 Sister Asthma [email or web address] Not availabl e 07/04/2024 13:49:15 Medical History [...] SNOMED-CT Code Diagnosis ICD10 Code Diagnosis Note [id number] [facility] [address] [place], [place] [address] 11/09/2024 08:34:40 11/09/2024 14:27:44 Nausea and vomiting 67791258 R11.2 Long discussion today regarding adherence to advise diet progressio n. Would advise patient is spend the next 3-4 days on stage I and slowly progress into stage II IIIDiscuss ed very small amounts 2 oz at a time. We will have dietitian meet with patient again today for dietary education. Patient is to use Zofran to help with p.o. intake.Carmen mati is advised to increase omeprazole to b.i.d.. We will add Carafate q.i.d.. Patient is instructed to crush these pills and makes slurryWe will order UGI to further evaluate - pt request [facility].Alexander bowen is advised to call or go to the ED for any acute worsening of abdominal symptoms.Alexander bowen is to keep scheduled follow-up 11/17/2024 Mild dehydration 2035322 119 108 E86.0 Patient will have to a L normal saline IV rehydratio n today in office. History of gastrectomy 135265257 Z90.3 s/p TORI-s 10/16/24 [id number] RON Azar [facility] [address] [place] [address] 11/17/2024 08:51:00 11/17/2024 09:41:49 Disorder of function of stomach 939253720 K31.89 Long discussion with patient regarding fatigue [...] call for any worsening symptoms Essential hypertension 15356638 I10 Stop monitor and discussed with PCP Impaired g lucose tolerance 2122522 R73.03 History of gastrectomy 556148033 Z90.3 We discussed diet and the importance [...] to correct any vitamin deficienci es. At [facility] risk of nutritional deficit 573804536 Z91.89 Severe obesity 737780321 1 [address]104 E66.813 E66.01 Z68.[id number] [facility] [address] [facility] [address] [place] [address] 11/17/2024 09:37:00 11/17/2024 10:29:59 Diet education 17840127 Z71.3 [id number] RON Azar [facility] [address] [facility] [address] [place] [address] 12/01/2024 09:40:04 12/01/2024 10:22:02 Nausea and vomiting 44303674 R11.2 Long discussion with patient regarding fatigue [...] has been resulted Nutritiona l deficiency state 51107855 E63.9 Encouraged patient see focus on p.o. intake. Advised she continue small frequent sips of protein drinks. History of gastrectomy 866671434 Z90.3 s/p Tori-s 10/16/24 with continued struggles including nausea vomiting p.o. intake.Carmen thorne had upper GIPatient will be scheduled for upper endoscopy for further evaluation Epigastric pain 03862570 R10.13 Advised patient to continue omeprazole . [...] with patient after EGD has been resulted.P andrés is advised to go to this [place] ED for any acute worsening symptoms Health Concerns Section Related Observation LastModified by Organization Detai ls LastModified Time None Recorded Concern Status LastModified by Organization Details LastModified Time None Recorded Payers Encounter Date Sequence Insurance Name Policy Number Policy Sanchez Covered Member ID Sanchez Member ID Guarantor Name 12/01/2024 1 [facility] ([place]AC[place] - [place] [id number] Penelope Christina [id number] Penelope Jimenezle Christina Notes Date Note Type Note Provider Name and Address Organization Details Recorded Time 12/01/2024 text/html Patient presents today for sick visit s/p Tori-s 10/16// UGI (Read as ERIN HOPSON [facility]) No stricture identified no hiatal hernia [...] to return to work. 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 [...] incision.Path benign RON Azar [address], [place], [address], [place] [facility] [place] & [place] 12/01/2024 10:37:51 OBGyn Episode No OBEpisode recorded.
--- OUTSIDE RECORDS SUMMARY | 2024-12-31 00:19 | XMS_ITS | Continuity of Care Document ---
Author Organization [facility] Address [address] [place] [address] Care Team Providers Care Infrastructure Design Engineer Name Role Phone KARLOS CHESTER Primary Care Provider [phone] Assessment No assessment recorded. Plan of Treatment Reminders Order Date Submit Date Provider Last Modified By Organization Details Last Modified Time Details Appointments OV EST 2024 01:20P M RON Azar Not available Not available Not available OV EST 2024 01:40P M [address] Not available Not available Not available Lab folate, serum 2024 025 [place] [facility], [address], [address], [place], [address], 11/24/2024 18:36:58 prealbumi n, serum 2024 025 [place] [facility], [address], [address], [place], [address], 11/24/2024 18:37:01 thiamine, QN, blood 2024 025 [place] [facility], [address], [address], [place], [address], 11/24/2024 18:37:00 methylmal jeffrey, QN, serum or plasma 2024 025 [place] [facility], [address], [address], [place], [address], 11/24/2024 18:37:00 CBC w/ auto diff 2024 025 [place] [facility], [address], [address], [place], [address], 11/24/2024 18:36:56 CMP, serum or plasma 2024 025 [place] [facility], [address], [address], [place], [address], 11/24/2024 18:36:57 iron + TIBC + ferritin, serum 2024 025 [place] [facility], [address], [address], [place], [address], 11/24/2024 18:36:55 vitamin D, 25-hydrox y, total, serum 2024 025 [place] [facility], [address], [address], [place], [address], 11/24/2024 18:36:59 vitamin E, serum 2024 025 [place] [facility], [address], [address], [place], [address], 11/24/2024 18:36:57 vitamin A (retinol) , serum 2024 025 [place] [facility], [address], [address], [place], [address], 11/24/2024 18:36:59 TSH + free T4, serum 2024 025 [place] [facility], [address], [address], [place], [address], 11/24/2024 18:36:55 Referral None recorded. Procedures None recorded. Surgeries None recorded. Imaging None recorded. Medication Orders ondansetr on 8 mg disintegr ating tablet 2024 025 [facility], [address], [place], [address], 11/17/2024 09:24:21 Patient TargetsNo targets recorded. Patient InstructionsNo instructions recorded. Reason for Referral None Reported. Results Created Date Observation Date Name Description Value Unit Range Abnormal Flag Note LastModifiedBy Organization Detail LastModifiedTime 11/11/1911/10/2024 RF, upper gastr ointe yadira l tract , w/ air, w/ contr ast PO No observ ation record ed. [facility] [address], [place], [address], 11/14/2024 15:11:14 11/11/19 25 11/10/2024 RF, upper gastr ointe yadira l tract , w/ air, w/ contr ast PO No observ ation record ed. [facility] (Scheduling) [address], [place], [address], 11/14/2024 15:11:15 11/11/19 25 11/10/2024 RF, upper gastr ointe yadira l tract , w/ air, w/ contr ast PO No observ ation record ed. [email or web address] [facility] (Scheduling) [address], [place], [address], 11/10/2024 14:58:54 Result Notes None recorded. Problems Name Problem SNOMED Code Status Onset Date Resolution Date Notes Provider Name and Address Organization Details Recorded Time Essential hypertensi on 25055112 Active 2023 RON Azar [address], [place], [address] , [facility] & [place] 12:30:28 Obesity 004460602 Active [address], [place], [address] , [facility] & [place] 4 12:30:50 Disorder of function of stomach 467113280 Active 2023 RON Azar [address], [place], [address] , [place] [facility] - [place] & [place] 4 12:30:50 Impaired glucose tolerance 7760397 Active 2023 RON Azar [address], [place], [address] , [place] [facility] [place] & [place] 4 12:31:02 Postoperat nicholas pain 228981905 Active [address], [place], [address] , [place] [facility] [place] & [place] 5 08:04:37 Contact dermatitis 58742129 Active [address], [place], [address] , [place] [facility] & [place] 5 10:32:01 Nausea 029734400 Active [address], [place], [address] , [place] [facility] [place] & [place] 5 09:06:20 Nausea and vomiting 34885547 Active [address], [place], [address] , [place] [facility] & [place] 5 10:19:41 Bilious vomiting 87746603 Active [address], [place], [address] , [place] [facility] & [place] 5 09:06:37 Mild dehydratio n 3777649728439 Active [address], [place], [address] , [place] [facility] & [place] 5 09:09:44 Intentiona l weight loss 528385385 Active 2024 RON Azar [address], [place], [address] , [facility] - [facility] & [place] 5 09:06:38 Body mass index 40+ - severely obese 810847095 Active 2024 RON Azar [address], [place], [address] , [place] [facility] & [place] 5 09:07:05 Severe obesity 2694332598077 [address], [place], [address] , [facility] - [facility] & [place] 5 09:07:24 Nutritiona l deficiency state 07853803 Active 2024 RON Azar [address], [address] , [facility] - [facility] & [place] 5 10:04:26 Epigastric pain 51617908 Active 2024 RON Azar [address] [place], [address] , [facility] - [facility] & [place] 5 10:16:35 Gestation period, 13 weeks 08144632 Active 2024 RON Azar [address], [place], [address] , [facility] - [facility] & [place] 5 10:26:24 Paresthesi a of upper limb 83547616 Active 2023 Raquel Guillen DO [address], [place], [address] , [facility] - [facility] & [place] 4 15:38:11 Problem Notes None recorded. Procedures Surgical History Date Name Laterality Status Provider Name and Address Organization Details Recorded Time 10/16/19 25 procedure on duodenum completed [facility] [place] 11/09/2024 08:47:34 12/09/19 24 EMG/ Nerve Conduction Study completed Raquel Guillen DO [address], [place], [address], [facility] & [place] 12/09/2023 15:38:04 Cholecystectomy completed RON Azar [address], [place], [address], [facility] & [place] 07/04/2024 12:57:53 extraction of wisdom tooth completed Parris Torres [facility] & [place] 07/03/2024 15:07:44 Tonsillectomy completed Parris Torres [facility] & [place] 07/03/2024 15:07:52 procedure on ganglion cyst completed Stephanie Castro [facility] & [place] 10/04/2024 07:53:08 Imaging Results None recorded. Procedure [...] completed Not Available Not Available Not Available [facility] mg disintegrat ing tablet 12/27 completed Not Available Not Available Not Available Vitals Date Recorded Body height Body mass index (BMI) Body weight Heart rate Body temperature Systolic blood pressure Diastolic blood pressure Provider Name and Address Organization Details Last Updated DateTime 5 170.18 cm 42.1 kg/m2 046764. 55 g 126 /min 97.7 [degF] 151 mm[Hg] 103 mm[Hg] Jessica Mcnally [facility] & [place] 09:02:32 Social History Question Answer Notes LastModified by Organizat ion Details LastModified Time Tobacco Smoking Status Never Smoker Parris Torres [facility] & [place] 07/03/2024 15:12:10 What Is Your Level Of Alcohol Consumption? Occasional Information not available 07/03/2024 What Is Your Level Of Caffeine Consumption? Occasional [email or web address] Information not available 07/04/2024 Do You Use Any Illicit Or Recreational Drugs? No [email or web address] Information not available 07/03/2024 Sex: Female Functional Status None recorded. Mental Status None recorded. Family History Relationship Description Onset Age of this Age Resolved Age Notes LastModified by Organization Details LastModified Time Father Hypertensive disorder [email or web address] Not available 06/2024 15:12:25 Father Hypercholest erolemia [email or web address] Not available 06/2024 15:12:51 Mother Hypertensive disorder [email or web address] Not available 06/2024 15:12:25 Mother Hypercholest erolemia [email or web address] Not available 06/2024 15:12:51 Mother Asthma [email or web address] Not availabl e 07/04/2024 13:49:15 Mother Chronic obstructive pulmonary disease [email or web address] Not available 06/2024 15:13:21 Maternal Grandmother Hypertensive disorder [email or web address] Not available 06/2024 15:12:25 Maternal Grandmother Chronic obstructive pulmonary disease [email or web address] Not available 06/2024 15:13:21 Maternal Grandfather Malignant neoplasm of lung [email or web address] Not available 06/23 13:49:15 Brother Asthma [email or web address] Not availab le 07/04/2024 13:49:15 Sister Asthma [email or web address] Not availabl e 07/04/2024 13:49:15 Medical History Condition Response Coronary Artery Disease N Other Y Depression Y Deep Vein Thrombosis N Anxiety Disorder Y Liver Disease N Headaches Y Kidney Disease N Diabetes Y Bleeding Disorder N Reflux/GERD Y Heart Disease N Pulmonary Embolism N Hypertension Y Gynecological HistoryNo gynecological history recorded. Obstetrics History GPAL:G 0 P 0 0 0 0 Past Encounters Encounter ID Performer Location Encounter Start Date Encounter Closed Date Diagnosis/Indication Diagnosis SNOMED-CT Code Diagnosis ICD10 Code Diagnosis Note [id number] RON [facility] [address] [facility] [address] [facility] [place] [address] 10/24/2024 07:55:40 10/24/2024 10:33:45 History of gastrectomy 323270881 Z90.3 Encouraged patient to continue focus on intake of adequate protein and hydration. Advised minimum 70 g of protein and 800 calories. Patient is to continue incentive spirometer for another 5-7 days Encouraged ambulation Patient is to start bariatric approved vitamin Follow up 3 weeks Contact dermatitis 70437 004 L25.9 Likely from surgical glue. Patient advised to keep area clean. She may apply Benadryl cream or calamine lotion. Advised she take Zyrtec q.a.m. and Benadryl q.p.m.. Advised she avoid scratching these areas. She is report any worsening symptoms. [id number] [facility]ON [facility] [address] [facility] [address] [place] [address] 11/09/2024 08:34:40 11/09/2024 14:27:44 Nausea and vomiting 61827960 R11.2 Long discussion today regarding adherence to advise diet gloriaio n. Would advise patient is spend the next 3-4 days on stage I and slowly progress into stage II IIIDiscuss ed very small amounts 2 oz at a time. We will have dietitian meet with patient again today for dietary education. Patient is to use Zofran to help with p.o. intake.Carmen sarabjitrachelle is advised to increase omeprazole to b.i.d.. We will add Carafate q.i.d.. Patient is instructed to crush these pills and makes slurryWe will order UGI to further evaluate - pt request [facility].Alexander bowen is advised to call or go to the ED for any acute worsening of abdominal symptoms.Alexander bowen is to keep scheduled follow-up 11/17/2024 Mild dehydration 1798189 119 108 E86.0 Patient will have to a L normal saline IV rehydratio n today in office. History of gastrectomy 497422275 Z90.3 s/p TORI-s 10/16/24 [id number] RON Azarvarsha [facility] [address] [place] [place] [address] 11/17/2024 08:51:00 11/17/2024 09:41:49 Disorder of function of stomach 566948098 K31.89 Long discussion with patient regarding fatigue [...] call for any worsening symptoms Essential hypertension 11808834 I10 Stop monitor and discussed with PCP Impaired g lucose tolerance 4198447 R73.03 History of gastrectomy 308907204 Z90.3 We discussed diet and the importance [...] to correct any vitamin deficienci es. At [facility] risk of nutritional deficit 091631639 Z91.89 Severe obesity 352336961 1 [address]104 E66.813 E66.01 Z68.[id number] [facility] [address] [place] [address] 11/17/2024 09:37:00 11/17/2024 10:29:59 Diet education 75157538 Z71.3 Health Concerns Section Related Observation LastModified by Organization Detai ls LastModified Time None Recorded Concern Status LastModified by Organization Details LastModified Time None Recorded Payers Encounter Date Sequence Insurance Name Policy Number Policy Sanchez Covered Member ID Sanchez Member ID Guarantor Name 11/17/2024 1 [facility] (MEDICAID REPLACEMENT - HMO) [facility] Penelope Christina [id number] Penelope Christina Notes Date Note Type Note [...] to return to work. 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
--- OUTSIDE RECORDS SUMMARY | 2024-12-31 00:19 | XMS_ITS | Continuity of Care Document ---
Author Organization [place] [facility] Address [address] [facility] [place] [address] Care Team Providers Care Poured Concrete Wall Technician Name Role Phone KARLOS CHESTER Primary Care Provider [phone] Assessment Encounter Date Assessment Date Assessment LastModified [...] 64 fluid oz, try to get in 4697-0522 calories starting now 7. Use [employer] dot to track 8. Take vitamins as [...] modifications. Will f/up as scheduled or PRN. [email or web address] Not available 12/27/2024 11:07:23 Plan of Treatment [...] Organization Details Recorded Time Essential hypertensi on 08772587 Active [address], [place], [address] , [place] [facility] & [place] 4 12:30:28 Obesity 128254910 Active [address], [facility] [address] , [place] [facility] & [place] 4 12:30:50 Disorder of function of stomach 212002816 Active [address], [facility] [address] , [place] [facility] & [place] 4 12:30:50 Impaired glucose tolerance 4269362 Active [address], [place], [address] , [place] [facility] & [place] 4 12:31:02 Postoperat nicholas pain 741563113 Active [address], [place], [address] , [place] [facility] & [place] 5 08:04:37 Contact dermatitis 86297246 Active 2024 [place], [address] , [place] [facility] [facility] & [place] 5 10:32:01 Nausea 918514965 Active [address], [place], [address] , [place] [facility] [facility] & [place] 5 09:06:20 Nausea and vomiting 21871846 Active 2024 RON Azar [address], [place], [address] , [place] [facility] [place] & [place] 5 10:19:41 Bilious vomiting 47059190 Active [address], [place], [address] , [place] [facility] [place] & [place] 5 09:06:37 Mild dehydratio n 5047298328612 Active [address], [place], [address] , [place] [facility] [place] & [place] 5 09:09:44 Intentiona l weight loss 488601159 Active [address], [place], [address] , [place] [facility] [place] & [place] 5 09:06:38 Body mass index 40+ - severely obese 914911740 Active 2024 [place], [address] , [place] [facility] [place] & [place] 5 09:07:05 Severe obesity 5513046824240 [address], [place], [address] , [place] [facility] & [place] 5 09:07:24 Nutritiona l deficiency state 63228249 Active 2024 [place], [address] , [place] [facility] & [place] 5 10:04:26 Epigastric pain 42297470 Active [address], [place], [address] , [place] [facility] & [place] 5 10:16:35 Gestation period, 13 weeks 77904576 Active 2024 RON Azar [address], [facility] [address] , [facility] & [place] 5 10:26:24 Paresthesi a of upper limb 06730234 Active 2023 Raquel Guillen DO [address], [facility] [address] , [facility] & [place] 4 15:38:11 Problem Notes None recorded. Procedures Surgical History Date Name Laterality Status Provider Name and Address Organization Details Recorded Time 10/16/19 25 procedure on duodenum completed Parris Torres [facility] & [place] 11/09/2024 08:47:34 12/09/19 24 EMG/ Nerve Conduction Study completed Raquel Guillen DO [address], [facility] [address], [facility] & [place] 12/09/2023 15:38:04 Cholecystectomy completed RON Azar [address], [place], [address], [facility] & [place] 07/04/2024 12:57:53 extraction of wisdom tooth completed Parris Torres [facility] & [place] 07/03/2024 15:07:44 Tonsillectomy completed Parris Torres [facility] & [place] 07/03/2024 15:07:52 procedure on ganglion cyst completed Stephanie Castro [facility] & [place] 10/04/2024 07:53:08 Imaging Results None recorded. Procedure [...] cm 97.1 [degF] 91 /min 40.5 kg/m2 502764. 35 g 141 mm[Hg] 100 mm[Hg] Stephanie Castro [facility] 5 09:49:04 Social History Question Answer Notes LastModified by Organizat ion Details LastModified Time Tobacco Smoking Status Never Smoker Parris neely, [facility] & [place] 07/03/2024 15:12:10 What Is Your Level Of Alcohol Consumption? Occasional [email or web address] Information not available 07/03/2024 What Is Your Level Of Caffeine Consumption? Occasional [email or web address] Information not available 07/04/2024 Do You Use Any Illicit Or Recreational Drugs? No [email or web address] Information not available 07/03/2024 Sex: Female Functional Status None recorded. Mental Status None recorded. Family History Relationship Description Onset Age of this Age Resolved Age Notes LastModified by Organization Details LastModified Time Father Hypertensive disorder [email or web address] Not available 06/2024 15:12:25 Father Hypercholest erolemia [email or web address] Not available 06/2024 15:12:51 Mother Hypertensive disorder [email or web address] Not available 06/2024 15:12:25 Mother Hypercholest erolemia [email or web address] Not available 06/2024 15:12:51 Mother Asthma [email or web address] Not availabl e 07/04/2024 13:49:15 Mother Chronic obstructive pulmonary disease [email or web address] Not available 06/2024 15:13:21 Maternal Grandmother Hypertensive disorder [email or web address] Not available 06/2024 15:12:25 Maternal Grandmother Chronic obstructive pulmonary disease [email or web address] Not available 06/2024 15:13:21 Maternal Grandfather Malignant neoplasm of lung [email or web address] Not available 06/23 13:49:15 Brother Asthma [email or web address] Not availab le 07/04/2024 13:49:15 Sister Asthma [email or web address] Not availabl e 07/04/2024 13:49:15 Medical History [...] SNOMED-CT Code Diagnosis ICD10 Code Diagnosis Note [id number] [facility]ON [facility] [address] [facility] [address] [place] [address] 12/01/2024 09:40:04 12/01/2024 10:22:02 Nausea and vomiting 27600765 R11.2 Long discussion with patient regarding fatigue and nausea specifical ly related to caloric intake.Pat ient will be prescribed Compazine. Patient advised she is to use this medication to facilitate p.o. intake. Encouraged patient to continue focus on p.o. intake, constantly sip on fluids/abby ories/prot ein in order to get an minimal amounts.Ron benjamin is to continue vitamin supplement ation. We will give patient B1 and B12 injection today.We are checking labs today and will follow up Adelina [place] follow-up 2-3 weeks after EGD has been resulted Nutritiona l deficiency state 06009397 E63.9 Encouraged patient see focus on p.o. intake. Advised she continue small frequent sips of protein drinks. History of gastrectomy 161412209 Z90.3 s/p Tori-s 10/16/24 with continued struggles including nausea vomiting p.o. intake.Carmen thorne had upper GIPatient will be scheduled for upper endoscopy for further evaluation Epigastric pain 96364043 R10.13 Advised patient to continue omeprazole . [...] atient is advised to go to this [place] ED for any acute worsening symptoms [id number] [facility] [address] [address] [place] [address] 12/27/2024 09:45:05 12/27/2024 11:07:46 Diet education 38130650 Z71.3 [id number] RON Azar [facility] [address] [facility] [address] [place] [address] 12/27/2024 09:47:12 12/27/2024 12:24:19 Gestation period, 13 weeks 32400645 Z3A.[address] Guillen today.Advi sed to continue vitamins. Next labs due January 2025Pt has appt with cuprous chloride operator today to discuss caloric need. Advise minimal 4515-2233 calories daily and 90 g proteinPt has high scaler appt today in [place] to establish carePt given copy of recent labs to share with OB History of gastrectomy 108713026 Z90.3 s/p Tori-s 10/16/24Fol lowup with labs January 2025 Health Concerns Section Related Observation LastModified by Organization Detai ls LastModified Time None Recorded Concern Status LastModified by Organization Details LastModified Time None Recorded Payers Encounter Date Sequence Insurance Name Policy Number Policy Sanchez Covered Member ID Sanchez Member ID Guarantor Name 12/27/2024 1 [facility] ([place]EMENT - [place]) [place] Penelope [place] [employer] [id number] Penelope Christina Notes Date Note Type Note [...] Tori-s 10/16/ UGI (Read as [facility]) No stricture identified no hiatal [...] to return to work. 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 [...] has removed glue from each incision.Path benign Ayleen Ann, RON [address], [place], [address], [facility] & [place] 12/27/2024 10:31:49 12/27/2024 text/html RDN met w/ [...] [place], housing assistance ISRAEL HERN[address]Z [address], [place], [address], [facility] & [place] 12/27/2024 11:07:36 OBGyn Episode No OBEpisode recorded.
--- OUTSIDE RECORDS SUMMARY | 2024-12-31 00:19 | XMS_ITS | Data Portability ---
Author Organization [facility] - [facility] & MONA Berry ADMIN Address [address] [place] [id number] Care Team Providers Care Salesperson Neckties Name Role Phone KARLOS CHESTER Primary Care Provider Assessment Encounter Date Assessment Date Assessment LastModified by Organization Details LastModified Time 11/17/2024 11/17/2024 A total of 10 minutes was spent with the pt today. ??? Recommendations: 1. Try going to the [employer] tree to find cheaper items to try [...] further questions/concerns . Pt reports that social service liaison did reach out to her but there are not any other options available in her area. Provided pt with some ensure clear samples because she can keep those down. ??? RDN will monitor weight loss, labs, meds, and lifestyle modifications. Will f/up as scheduled or PRN. [email or web address] Not available 11/17/2024 09:58:18 12/27/2024 12/27/2024 A [...] 64 fluid oz, try to get in 4232-5572 calories starting now 7. Use [employer] dot to track 8. Take vitamins as [...] modifications. Will f/up as scheduled or PRN. [email or web address] Not available 12/27/2024 11:07:23 Plan of Treatment Reminders Order Date Submit Date Provider Last Modified By Organization Details Last Modified Time Details Appointments OV EST 2024 01:20P M RON Azar Not available Not available Not available OV EST 2024 01:40P M ISRAEL H[address]Z RD Not available Not available Not available Lab magnesium , serum or plasma 2024 025 [facility], [address] [place] [address], [address], 12/08/2024 04:11:53 phosphoru s, serum or plasma 2024 025 [facility], [address] [place] [address], [address], 12/08/2024 04:11:53 CBC w/ auto diff 2024 025 KE[facility] CANY[facility], [address], [address], [place], [address], 12/02/2024 03:38:32 CMP, serum or plasma 2024 025 KEAMS CANYON [facility], [address], [address], [place], [address], 12/02/2024 03:38:33 folate, serum 2024 025 KEAMS CANYON [facility], [address], [address], [place], [address], 11/24/2024 18:36:58 prealbumi n, serum 2024 025 [facility], [address], [address], [place], [address], 11/24/2024 18:37:01 thiamine, QN, blood 2024 025 [facility], [address], [address], [place], [address], 11/24/2024 18:37:00 methylmal jeffrey, QN, serum or plasma 2024 025 [facility], [address], [address], [place], [address], 11/24/2024 18:37:00 CBC w/ auto diff 2024 025 [facility], [address], [address], [place], [address], 11/24/2024 18:36:56 CMP, serum or plasma 2024 025 [facility], [address], [address], [place], [address], 11/24/2024 18:36:57 iron + TIBC + ferritin, serum 2024 025 [facility], [address], [address], [place], [address], 11/24/2024 18:36:55 vitamin D, 25-hydrox y, total, serum 2024 025 [facility], [address], [address], [place], [address], 11/24/2024 18:36:59 vitamin E, serum 2024 025 KEAMS CANYON [facility], [address], [address], [place], [address], 11/24/2024 18:36:57 vitamin A (retinol) , serum 2024 025 KEAMS CANYON [facility], [address], [address], [place], [address], 11/24/2024 18:36:59 TSH + free T4, serum 2024 025 KEAMS CANYON [facility], [address], [address], [place], [address], 11/24/2024 18:36:55 Referral None recorded. Procedures None recorded. Surgeries esophagog astroduod enoscopy (SURG) 2024 025 earl Rubi MD, [address] [place] [address], [address], [place], [address], 12/15/2024 11:34:18 Imaging None recorded. Medication Orders thiamine HCl (vitamin B1) 100 mg/mL injection solution 2024 025 [email or web address] Not available 12/27/2024 09:50:37 cyanocoba yves (vit B-12) 1,000 mcg/mL injection solution 2024 025 [email or web address] Not available 12/27/2024 09:50:09 Compazine 5 mg tablet 2024 025 [facility], [address] [place], [address], 12/01/2024 10:20:25 ondansetr on 8 mg disintegr ating tablet 2024 025 [facility], [address] [place], [address], 11/17/2024 09:24:21 Patient TargetsNo targets recorded. Patient InstructionsNo instructions recorded. Reason for Referral None Reported. Results Created Date Observation Date Name Description Value Unit Range Abnormal Flag Note LastModifiedBy Organization Detail LastModifiedTime 11/18/1911/18/2024 FE+TI BC+FE R iron bind.cap.(TI BC) 310 ug/dL 250-45 0 normal Not Available [facility] ([facility]) [address] [place], [address], 11/24/2024 18:36:54 11/18/1911/18/2024 FE+TI BC+FE R UIBC 230 ug/dL 131-42 5 normal Not Available [facility] ([facility]) [address] [place], [address], 11/24/2024 18:36:54 11/18/1911/18/2024 FE+TI BC+FE R iron 80 ug/dL 27-159 normal Not Available [facility] ([facility]) [address] [place], [address], 11/24/2024 18:36:54 11/18/1911/18/2024 FE+TI BC+FE R iron saturation 26 % 15-55 normal Not Available [facility] ([facility]) [address] [place], [address], 11/24/2024 18:36:54 11/18/1911/18/2024 FE+TI BC+FE R ferritin 482 NG/mL 15-150 above high normal Not Available [facility] ([facility]) [address] [place], [address], 11/24/2024 18:36:54 11/18/1911/18/2024 TSH+F REE T4 TSH 2.210 uIU/m L 0.450- 4.500 normal Not Available [facility] ([facility]) [address] [place], [address], 11/24/2024 18:36:55 11/18/19 25 11/18/2024 TSH+F REE T4 T4,free(dire ct) 1.44 NG/dL 0.82-1 .77 normal Not Available [facility] ([facility]) [address] [place], [address], 11/24/2024 18:36:55 11/18/19 25 11/18/2024 CBC WITH DIFFE RENTI AL/PL ATELE T WBC 5.0 x10e3 /uL 3.4-10 .8 normal Not Available [facility] ([facility]) [address] [place], [address], 11/24/2024 18:36:56 11/18/1911/18/2024 CBC WITH DIFFE RENTI AL/PL ATELE T RBC 5.41 x10e6 /uL 3.77-5 .28 above high normal Not Available [facility] ([facility]) [address] [place], [address], 11/24/2024 18:36:56 11/18/19 25 11/18/2024 CBC WITH DIFFE RENTI AL/PL ATELE T hemoglobin 15.3 g/dL 11.1-1 5.9 normal Not Available [facility] ([facility]) [address] [place], [address], 11/24/2024 18:36:56 11/18/1911/18/2024 CBC WITH DIFFE RENTI AL/PL ATELE T hematocrit 45.0 % 34.0-4 6.6 normal Not Available [facility] ([facility]) [address] [place], [address], 11/24/2024 18:36:56 11/18/19 25 11/18/2024 CBC WITH DIFFE RENTI AL/PL ATELE T MCV 83 fL 79-97 normal Not Available [facility] ([facility]) [address] [place], [address], 11/24/2024 18:36:56 11/18/19 25 11/18/2024 CBC WITH DIFFE RENTI AL/PL ATELE T MCH 28.3 pg 26.6-3 3.0 normal Not Available [facility] ([facility]) [address] [place], [address], 11/24/2024 18:36:56 11/18/19 25 11/18/2024 CBC WITH DIFFE RENTI AL/PL ATELE T MCHC 34.0 g/dL 31.5-3 5.7 normal Not Available [facility] ([facility]) [address] [place], [address], 11/24/2024 18:36:56 11/18/19 25 11/18/2024 CBC WITH DIFFE RENTI AL/PL ATELE T RDW 15.0 % 11.7-1 5.4 Not Available [facility] ([facility]) [address] [place], [address], 11/24/2024 18:36:56 11/18/19 25 11/18/2024 CBC WITH DIFFE RENTI AL/PL ATELE T platelets 168 x10e3 /uL 150-45 0 normal Not Available [facility] ([facility]) [address] [place], [address], 11/24/2024 18:36:56 11/18/19 25 11/18/2024 CBC WITH DIFFE RENTI AL/PL ATELE T neutrophils 58 % not estab. normal Not Available [facility] ([facility]) [address] [place], [address], 11/24/2024 18:36:56 11/18/19 25 11/18/2024 CBC WITH DIFFE RENTI AL/PL ATELE T lymphs 32 % not estab. normal Not Available [facility] ([facility]) [address] [place], [address], 11/24/2024 18:36:56 11/18/19 25 11/18/2024 CBC WITH DIFFE RENTI AL/PL ATELE T monocytes 9 % not estab. normal Not Available [facility] ([facility]) [address] [place], [address], 11/24/2024 18:36:56 11/18/19 25 11/18/2024 CBC WITH DIFFE RENTI AL/PL ATELE T eos 1 % not estab. normal Not Available [facility] ([facility]) [address] [place], [address], 11/24/2024 18:36:56 11/18/19 25 11/18/2024 CBC WITH DIFFE RENTI AL/PL ATELE T basos 0 % not estab. normal Not Available [facility] ([facility]) [address] [facility], [place], [address], 11/24/2024 18:36:56 11/18/19 25 11/18/2024 CBC WITH DIFFE RENTI AL/PL ATELE T immature cells CONGRESSIONAL REPRESENTATIVE Not Available [facility] ([facility]) [address] [place], [address], 11/24/2024 18:36:56 11/18/19 25 11/18/2024 CBC WITH DIFFE RENTI AL/PL ATELE T neutrophils (absolute) 2.9 x10e3 /uL 1.4-7. 0 normal Not Available [facility] ([facility]) [address] [place], [address], 11/24/2024 18:36:56 11/18/19 25 11/18/2024 CBC WITH DIFFE RENTI AL/PL ATELE T lymphs (absolute) 1.6 x10e3 /uL 0.7-3. 1 normal Not Available [facility] ([facility]) [address] [place], [address], 11/24/2024 18:36:56 11/18/19 25 11/18/2024 CBC WITH DIFFE RENTI AL/PL ATELE T monocytes(ab solute) 0.5 x10e3 /uL 0.1-0. 9 normal Not Available [facility] ([facility]) [address] [place], [address], 11/24/2024 18:36:56 11/18/19 25 11/18/2024 CBC WITH DIFFE RENTI AL/PL ATELE T eos (absolute) 0.0 x10e3 /uL 0.0-0. 4 normal Not Available [facility] ([facility]) [address] [facility], [place], [address], 11/24/2024 18:36:56 11/18/19 25 11/18/2024 CBC WITH DIFFE RENTI AL/PL ATELE T baso (absolute) 0.0 x10e3 /uL 0.0-0. 2 normal Not Available [facility] ([facility]) [address] [place], [address], 11/24/2024 18:36:56 11/18/19 25 11/18/2024 CBC WITH DIFFE RENTI AL/PL ATELE T immature granulocytes 0 % not estab. Not Available [facility] ([facility]) [address] [place], [address], 11/24/2024 18:36:56 11/18/19 25 11/18/2024 CBC WITH DIFFE RENTI AL/PL ATELE T immature grans (abs) 0.0 x10e3 /uL 0.0-0. 1 Not Available [facility] ([facility]) [address] [place], [address], 11/24/2024 18:36:56 11/18/19 25 11/18/2024 CBC WITH DIFFE RENTI AL/PL ATELE T NRBC CONGRESSIONAL REPRESENTATIVE Not Available [facility] ([facility]) [address] [place], [address], 11/24/2024 18:36:56 11/18/19 25 11/18/2024 CBC WITH DIFFE RENTI AL/PL ATELE T hematology comments: CONGRESSIONAL REPRESENTATIVE Not Available [facility] ([facility]) [address] [place], [address], 11/24/2024 18:36:56 11/18/19 25 11/18/2024 COMP. METAB OLIC PANEL (14) glucose 106 mg/dL 70-99 above high normal Not Available [facility] ([facility]) [address] [place], [address], 11/24/2024 18:36:57 11/18/19 25 11/18/2024 COMP. METAB OLIC PANEL (14) BUN 6 mg/dL 6-20 normal Not Available [facility] ([facility]) [address] [facility], [place], [address], 11/24/2024 18:36:57 11/18/19 25 11/18/2024 COMP. METAB OLIC PANEL (14) creatinine 0.56 mg/dL 0.57-1 .00 below low normal Not Available [facility] ([facility]) [address] [place], [address], 11/24/2024 18:36:57 11/18/19 25 11/18/2024 COMP. METAB OLIC PANEL (14) eGFR 129 mL/mi n/1.7 3 >59 normal Not Available [facility] ([facility]) [address] [place], [address], 11/24/2024 18:36:57 11/18/19 25 11/18/2024 COMP. METAB OLIC PANEL (14) BUN/creatini ne ratio 11 9-23 normal Not Available [facility] ([facility]) [address] [place], [address], 11/24/2024 18:36:57 11/18/19 25 11/18/2024 COMP. METAB OLIC PANEL (14) sodium 135 mmol/ L 134-14 4 normal Not Available [facility] ([facility]) [address] [place], [address], 11/24/2024 18:36:57 11/18/19 25 11/18/2024 COMP. METAB OLIC PANEL (14) potassium 3.7 mmol/ L 3.5-5. 2 normal Not Available [facility] ([facility]) [address] [place], [address], 11/24/2024 18:36:57 11/18/19 25 11/18/2024 COMP. METAB OLIC PANEL (14) chloride 98 mmol/ L 96-106 normal Not Available [facility] ([facility]) [address] [place], [address], 11/24/2024 18:36:57 11/18/19 25 11/18/2024 COMP. METAB OLIC PANEL (14) carbon dioxide, total 18 mmol/ L 20-29 below low normal Not Available [facility] ([facility]) [address] [place], [address], 11/24/2024 18:36:57 11/18/19 25 11/18/2024 COMP. METAB OLIC PANEL (14) calcium 9.6 mg/dL 8.7-10 .2 normal Not Available [facility] ([facility]) [address] [place], [address], 11/24/2024 18:36:57 11/18/19 25 11/18/2024 COMP. METAB OLIC PANEL (14) protein, total 7.1 g/dL 6.0-8. 5 normal Not Available [facility] ([facility]) [address] [facility] [place] [place], [address], 11/24/2024 18:36:57 11/18/19 25 11/18/2024 COMP. METAB OLIC PANEL (14) albumin 4.3 g/dL 4.0-5. 0 normal Not Available [facility] ([facility]) [address] [facility] [place], [address], 11/24/2024 18:36:57 11/18/19 25 11/18/2024 COMP. METAB OLIC PANEL (14) globulin, total 2.8 g/dL 1.5-4. 5 Not Available [facility] ([facility]) [address] [facility] [place], [address], 11/24/2024 18:36:57 11/18/19 25 11/18/2024 COMP. METAB OLIC PANEL (14) bilirubin, total 0.8 mg/dL 0.0-1. 2 normal Not Available [facility] ([facility]) [address] [facility] [place], [address], 11/24/2024 18:36:57 11/18/19 25 11/18/2024 COMP. METAB OLIC PANEL (14) alkaline phosphatase 91 IU/L 44-121 normal Not Available [facility] ([facility]) [address] [facility], [place], [address], 11/24/2024 18:36:57 11/18/19 25 11/18/2024 COMP. METAB OLIC PANEL (14) AST (SGOT) 40 IU/L 0-40 normal Not Available [facility] ([facility]) [address] [facility] [place], [address], 11/24/2024 18:36:57 11/18/19 25 11/18/2024 COMP. METAB OLIC PANEL (14) ALT (SGPT) 48 IU/L 0-32 above high normal Not Available [facility] ([facility]) [address] [facility] [place], [address], 11/24/2024 18:36:57 11/18/19 25 11/24/2024 VITAM IN E vitamin E(alpha tocopherol) 5.6 mg/L 5.9-19 .4 below low normal Not Available [facility] ([facility]) [address] [place], [address], 11/24/2024 18:36:57 11/18/19 25 11/24/2024 VITAM IN [...] in E defic ient. Not Available [facility] ([facility]) [address] [facility], [place], [address], 11/24/2024 18:36:57 11/18/19 25 11/18/2024 FOLAT E (FOLI C ACID) , SERUM folate (folic acid), serum 6.5 NG/mL >3.0 normal A serum folat e matt ntrat ion of less than 3.1 ng/mL is consi dered to repre sent clini abby defic iency . Not Available [facility] ([facility]) [address] [facility], [place], [address], 11/24/2024 18:36:58 11/18/19 25 11/24/2024 VITAM IN [...] Drug Admin istra tion. Not Available [facility] ([facility]) [address] [facility], [place], [address], 11/24/2024 18:36:58 11/18/19 25 11/18/2024 VITAM IN [...] Medic ine). 2009. Brucea ry refer ence intrani es for calci um and D. Lucretia pleitez [place]: [facility] . 2. Reinaldo moreno [place], Eileen mccann [place], David off-F errar i LILLY, et al. Evalu ation , treat ment, and preve ntion of vitam in D defic iency : an Endoc rine Socie ty clini abby pract ice guide line. JCEM. 2010; 96(7) :1911 -30. Not Available [facility] ([facility]) [address] [place], [address], 11/24/2024 18:36:59 11/18/19 25 11/23/2024 VITAM IN B1 (THIA MINE) , BLOOD vit. B1, whole blood 82.0 nmol/ L 66.5-2 00.0 Not Available [facility] ([facility]) [address] [place], [address], 11/24/2024 18:37:00 11/18/19 25 11/22/2024 METHY LMALO JAREK ACID, SERUM methylmaloni c acid, serum 60 nmol/ L 0-378 Not Available [facility] ([facility]) [address] [place], [address], 11/24/2024 18:37:00 11/18/19 25 11/18/2024 PREAL BUMIN prealbumin 15 mg/dL 14-35 Not Available [facility] ([facility]) [address] [place], [address], 11/24/2024 18:37:01 12/02/19 25 12/02/2024 CBC WITH DIFFE RENTI AL/PL ATELE T WBC 8.4 x10e3 /uL 3.4-10 .8 normal Not Available [facility] ([facility]) [address] [place], [address], 12/02/2024 03:38:32 12/02/19 25 12/02/2024 CBC WITH DIFFE RENTI AL/PL ATELE T RBC 4.94 x10e6 /uL 3.77-5 .28 normal Not Available [facility] ([facility]) [address] [place], [address], 12/02/2024 03:38:32 12/02/19 25 12/02/2024 CBC WITH DIFFE RENTI AL/PL ATELE T hemoglobin 14.3 g/dL 11.1-1 5.9 normal Not Available [facility] ([facility]) [address] [place], [address], 12/02/2024 03:38:32 12/02/19 25 12/02/2024 CBC WITH DIFFE RENTI AL/PL ATELE T hematocrit 41.7 % 34.0-4 6.6 normal Not Available [facility] ([facility]) [address] [place], [address], 12/02/2024 03:38:32 12/02/19 25 12/02/2024 CBC WITH DIFFE RENTI AL/PL ATELE T MCV 84 fL 79-97 normal Not Available [facility] ([facility]) [address] [place], [address], 12/02/2024 03:38:32 12/02/19 25 12/02/2024 CBC WITH DIFFE RENTI AL/PL ATELE T MCH 28.9 pg 26.6-3 3.0 normal Not Available [facility] ([facility]) [address] [facility], [place], [address], 12/02/2024 03:38:32 12/02/19 25 12/02/2024 CBC WITH DIFFE RENTI AL/PL ATELE T MCHC 34.3 g/dL 31.5-3 5.7 normal Not Available [facility] ([facility]) [address] [facility], [place], [address], 12/02/2024 03:38:32 12/02/19 25 12/02/2024 CBC WITH DIFFE RENTI AL/PL ATELE T RDW 14.5 % 11.7-1 5.4 Not Available [facility] ([facility]) [address] [facility], [place], [address], 12/02/2024 03:38:32 12/02/19 25 12/02/2024 CBC WITH DIFFE RENTI AL/PL ATELE T platelets 171 x10e3 /uL 150-45 0 normal Not Available [facility] ([facility]) [address] [facility], [place], [address], 12/02/2024 03:38:32 12/02/19 25 12/02/2024 CBC WITH DIFFE RENTI AL/PL ATELE T neutrophils 72 % not estab. normal Not Available [facility] ([facility]) [address] [facility], [place], [address], 12/02/2024 03:38:32 12/02/19 25 12/02/2024 CBC WITH DIFFE RENTI AL/PL ATELE T lymphs 21 % not estab. normal Not Available [facility] ([facility]) [address] [facility], [place], [address], 12/02/2024 03:38:32 12/02/19 25 12/02/2024 CBC WITH DIFFE RENTI AL/PL ATELE T monocytes 6 % not estab. normal Not Available [facility] ([facility]) [address] [place], [address], 12/02/2024 03:38:32 12/02/19 25 12/02/2024 CBC WITH DIFFE RENTI AL/PL ATELE T eos 1 % not estab. normal Not Available [facility] ([facility]) [address] [facility], [place], [address], 12/02/2024 03:38:32 12/02/19 25 12/02/2024 CBC WITH DIFFE RENTI AL/PL ATELE T basos 0 % not estab. normal Not Available [facility] ([facility]) [address] [facility], [place], [address], 12/02/2024 03:38:32 12/02/19 25 12/02/2024 CBC WITH DIFFE RENTI AL/PL ATELE T immature cells CONGRESSIONAL REPRESENTATIVE Not Available [facility] ([facility]) [address] [place], [address], 12/02/2024 03:38:32 12/02/19 25 12/02/2024 CBC WITH DIFFE RENTI AL/PL ATELE T neutrophils (absolute) 6.0 x10e3 /uL 1.4-7. 0 normal Not Available [facility] ([facility]) [address] [place], [address], 12/02/2024 03:38:32 12/02/19 25 12/02/2024 CBC WITH DIFFE RENTI AL/PL ATELE T lymphs (absolute) 1.8 x10e3 /uL 0.7-3. 1 normal Not Available [facility] ([facility]) [address] [place], [address], 12/02/2024 03:38:32 12/02/19 25 12/02/2024 CBC WITH DIFFE RENTI AL/PL ATELE T monocytes(ab solute) 0.5 x10e3 /uL 0.1-0. 9 normal Not Available [facility] ([facility]) [address] [facility], [place], [address], 12/02/2024 03:38:32 12/02/19 25 12/02/2024 CBC WITH DIFFE RENTI AL/PL ATELE T eos (absolute) 0.1 x10e3 /uL 0.0-0. 4 normal Not Available [facility] ([facility]) [address] [facility], [place], [address], 12/02/2024 03:38:32 12/02/19 25 12/02/2024 CBC WITH DIFFE RENTI AL/PL ATELE T baso (absolute) 0.0 x10e3 /uL 0.0-0. 2 normal Not Available [facility] ([facility]) [address] [facility], [place], [address], 12/02/2024 03:38:32 12/02/19 25 12/02/2024 CBC WITH DIFFE RENTI AL/PL ATELE T immature granulocytes 0 % not estab. Not Available [facility] ([facility]) [address] [facility], [place], [address], 12/02/2024 03:38:32 12/02/19 25 12/02/2024 CBC WITH DIFFE RENTI AL/PL ATELE T immature grans (abs) 0.0 x10e3 /uL 0.0-0. 1 Not Available [facility] ([facility]) [address] [facility], [place], [address], 12/02/2024 03:38:32 12/02/19 25 12/02/2024 CBC WITH DIFFE RENTI AL/PL ATELE T NRBC CONGRESSIONAL REPRESENTATIVE Not Available [facility] ([facility]) [address] [facility], [place], [address], 12/02/2024 03:38:32 12/02/19 25 12/02/2024 CBC WITH DIFFE RENTI AL/PL ATELE T hematology comments: CONGRESSIONAL REPRESENTATIVE Not Available [facility] ([facility]) [address] [facility] [place], [address], 12/02/2024 03:38:32 12/02/19 25 12/02/2024 COMP. METAB OLIC PANEL (14) glucose 96 mg/dL 70-99 normal Not Available [facility] ([facility]) [address] [facility] [place], [address], 12/02/2024 03:38:33 12/02/19 25 12/02/2024 COMP. METAB OLIC PANEL (14) BUN 5 mg/dL 6-20 below low normal Not Available [facility] ([facility]) [address] [facility] [place], [address], 12/02/2024 03:38:33 12/02/19 25 12/02/2024 COMP. METAB OLIC PANEL (14) creatinine 0.53 mg/dL 0.57-1 .00 below low normal Not Available [facility] ([facility]) [address] [facility] [place], [address], 12/02/2024 03:38:33 12/02/19 25 12/02/2024 COMP. METAB OLIC PANEL (14) eGFR 131 mL/mi n/1.7 3 >59 normal Not Available [facility] ([facility]) [address] [place], [address], 12/02/2024 03:38:33 12/02/19 25 12/02/2024 COMP. METAB OLIC PANEL (14) BUN/creatini ne ratio 9 9-23 normal Not Available [facility] ([facility]) [address] [place], [address], 12/02/2024 03:38:33 12/02/19 25 12/02/2024 COMP. METAB OLIC PANEL (14) sodium 136 mmol/ L 134-14 4 normal Not Available [facility] ([facility]) [address] [place], [address], 12/02/2024 03:38:33 12/02/19 25 12/02/2024 COMP. METAB OLIC PANEL (14) potassium 4.5 mmol/ L 3.5-5. 2 normal Not Available [facility] ([facility]) [address] [place], [address], 12/02/2024 03:38:33 12/02/19 25 12/02/2024 COMP. METAB OLIC PANEL (14) chloride 101 mmol/ L 96-106 normal Not Available [facility] ([facility]) [address] [place], [address], 12/02/2024 03:38:33 12/02/19 25 12/02/2024 COMP. METAB OLIC PANEL (14) carbon dioxide, total 20 mmol/ L 20-29 normal Not Available [facility] ([facility] [facility]) [address] [place], [address], 12/02/2024 03:38:33 12/02/19 25 12/02/2024 COMP. METAB OLIC PANEL (14) calcium 9.5 mg/dL 8.7-10 .2 normal Not Available [facility] ([facility]) [address] [facility] [place], [address], 12/02/2024 03:38:33 12/02/19 25 12/02/2024 COMP. METAB OLIC PANEL (14) protein, total 6.6 g/dL 6.0-8. 5 normal Not Available [facility] ([facility]) [address] [facility] [place], [address], 12/02/2024 03:38:33 12/02/19 25 12/02/2024 COMP. METAB OLIC PANEL (14) albumin 4.1 g/dL 4.0-5. 0 normal Not Available [facility] ([facility]) [address] [facility] [place], [address], 12/02/2024 03:38:33 12/02/19 25 12/02/2024 COMP. METAB OLIC PANEL (14) globulin, total 2.5 g/dL 1.5-4. 5 Not Available [facility] ([facility]) [address] [place], [address], 12/02/2024 03:38:33 12/02/19 25 12/02/2024 COMP. METAB OLIC PANEL (14) bilirubin, total 1.6 mg/dL 0.0-1. 2 above high normal Not Available [facility] ([facility]) [address] [place], [address], 12/02/2024 03:38:33 12/02/19 25 12/02/2024 COMP. METAB OLIC PANEL (14) alkaline phosphatase 83 IU/L 44-121 normal Not Available [facility] ([facility]) [address] [place], [address], 12/02/2024 03:38:33 12/02/19 25 12/02/2024 COMP. METAB OLIC PANEL (14) AST (SGOT) 46 IU/L 0-40 above high normal Not Available [facility] ([facility]) [address] [place], [address], 12/02/2024 03:38:33 12/02/19 25 12/02/2024 COMP. METAB OLIC PANEL (14) ALT (SGPT) 59 IU/L 0-32 above high normal Not Available [facility] ([facility]) [address] [place], [address], 12/02/2024 03:38:33 11/11/19 25 11/10/2024 RF, upper gastr ointe yadira l tract , w/ air, w/ contr ast PO No observ ation record ed. [facility] [address], [place], [address], 11/14/2024 15:11:14 11/11/19 25 11/10/2024 RF, upper gastr ointe yadira l tract , w/ air, w/ contr ast PO No observ ation record ed. [facility] (Scheduling) [address], [place], [address], 11/14/2024 15:11:15 11/11/19 25 11/10/2024 RF, upper gastr ointe yadira l tract , w/ air, w/ contr ast PO No observ ation record ed. [email or web address] [facility] (Scheduling) [address], [place], [address], 11/10/2024 14:58:54 Result Notes None recorded. Problems Name Problem SNOMED Code Status Onset Date Resolution Date Notes Provider Name and Address Organization Details Recorded Time Essential hypertensi on 15749913 Active [address], [place], [address] , [place] - [facility] & [place] 4 12:30:28 Obesity 353751622 Active [address], [place], [address] , [place] [facility] & [place] 4 12:30:50 Disorder of function of stomach 027335329 Active [address], [place], [address] , [place] [facility] & [place] 4 12:30:50 Impaired glucose tolerance 9713920 Active [address], [place], [address] , [place] [facility] & [place] 4 12:31:02 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 [address], [place], [address] , [place] [facility] - [place] & [place] 5 08:04:37 Contact dermatitis 70293070 Active [address] , [place], [address] , [place] [facility] [place] & [place] 5 10:32:01 Nausea 945053179 Active [address], [place], [address] , [place] [facility] & [place] 5 09:06:20 Nausea and vomiting 51421801 Active [address], [place], [address] , [place] [facility] [place] & [place] 5 10:19:41 Bilious vomiting 36531147 Active [address] [place], [address] , [place] [facility] & [place] 5 09:06:37 Mild dehydratio n 0760718100661 Active [address] [place], [address] , [place] [facility] [place] & [place] 5 09:09:44 Intentiona l weight loss 234150232 Active [address] [place], [address] , [place] [facility] & [place] 5 09:06:38 Body mass index 40+ - severely obese 669723270 Active [address] [place], [address] , [place] [facility] & [place] 5 09:07:05 Severe obesity 3251154005858 4 Active [address] [place], [address] , [place] [facility] & [place] 5 09:07:24 Nutritiona l deficiency state 75198502 Active [address], [place], [address] , [place] [facility] & [place] 5 10:04:26 Epigastric pain 02376727 Active [address], [place], [address] , [place] [facility] & [place] 5 10:16:35 Gestation period, 13 weeks 62616186 Active [address], [place], [address] , [place] [facility] & [place] 5 10:26:24 Paresthesi a of upper limb 89053395 Active [address], [place], [address] , [place] [facility] & [place] 4 15:38:11 Problem Notes None recorded. Procedures Surgical History Date Name Laterality Status Provider Name and Address Organization Details Recorded Time 10/16/19 25 procedure on duodenum completed Parris Torres [place] - [facility] & [place] 11/09/2024 08:47:34 12/09/19 24 EMG/ Nerve Conduction Study completed DO [address], [place], [address], [place] [facility] & [place] 12/09/2023 15:38:04 [address] completed [address], [place], [address], [place] [facility] & [place] 07/04/2024 12:57:53 extraction of wisdom tooth completed Parris GUTHRIE - [facility] & [place] 07/03/2024 15:07:44 Tonsillectomy completed Parris GUTHRIE - [facility] & [place] 07/03/2024 15:07:52 procedure on ganglion cyst completed Stephanie Castro [place] - [facility] - [place] & [place] 10/04/2024 07:53:08 Imaging Results Imaging Date Name Status LastModified by Organization Details LastModified Time 11/10/2024 RF, upper gastrointestinal tract, w/ air, w/ contrast PO completed [facility] [address], [place], [place], [address], 11/14/2024 15:11:14 11/10/2024 RF, upper gastrointestinal tract, w/ air, w/ contrast PO completed [facility] (Scheduling) [address], [place], [place], [address], 11/14/2024 15:11:15 11/10/2024 RF, upper gastrointestinal tract, w/ air, w/ contrast PO completed [id number] [place] [address] (Scheduling) [address], [place], [place], [address], 11/10/2024 14:58:54 Procedure Notes None recorded. Medical [...] completed Not Available Not Available Not Available [facility] disintegrat ing tablet 12/27 completed Not Available Not Available Not Available Vitals Date Recorded Body height Body mass index (BMI) Body weight Heart rate Body temperature Systolic blood pressure Diastolic blood pressure Provider Name and Address Organization Details Last Updated DateTime 5 170.18 cm 42.1 kg/m2 746233. 55 g 126 /min 97.7 [degF] 151 mm[Hg] 103 mm[Hg] Jessica Uli [facility] & [place] 5 09:02:32 Date Recorded Body height Body temperature Heart rate Body mass index (BMI) Body weight Systolic blood pressure Diastolic blood pressure Provider Name and Address Organization Details Last Updated DateTime 5 170.18 cm 97.3 [degF] 96 /min 41.5 kg/m2 825855. 98 g 120 mm[Hg] 84 mm[Hg] Lorne diazam [facility] & [place] 5 09:49:02 Date Recorded Body height Body temperature Heart rate Body mass index (BMI) Body weight Systolic blood pressure Diastolic blood pressure Provider Name and Address Organization Details Last Updated DateTime 5 170.18 cm 97.1 [degF] 91 /min 40.5 kg/m2 674082. 35 g 141 mm[Hg] 100 mm[Hg] Stephanie Castro [facility] & [place] 5 09:49:04 Social History Question Answer Notes LastModified by Organizat ion Details LastModified Time Tobacco Smoking Status Never Smoker Parris Torres [facility] & [place] 07/03/2024 15:12:10 What Is Your Level Of Alcohol Consumption? Occasional [email or web address] Information not available 07/03/2024 What Is Your Level Of Caffeine Consumption? Occasional Information not available 07/04/2024 Do You Use Any Illicit Or Recreational Drugs? No [email or web address] Information not available 07/03/2024 Sex: Female Functional Status None recorded. Mental Status None recorded. Family History Relationship Description Onset Age of this Age Resolved Age Notes LastModified by Organization Details LastModified Time Father Hypertensive disorder [email or web address] Not available 06/2024 15:12:25 Father Hypercholest erolemia [email or web address] Not available 06/2024 15:12:51 Mother Hypertensive disorder [email or web address] Not available 06/2024 15:12:25 Mother Hypercholest erolemia [email or web address] Not available 06/2024 15:12:51 Mother Asthma [email or web address] Not availabl e 07/04/2024 13:49:15 Mother Chronic obstructive pulmonary disease [email or web address] Not available 06/2024 15:13:21 Maternal Grandmother Hypertensive disorder [email or web address] Not available 06/2024 15:12:25 Maternal Grandmother Chronic obstructive pulmonary disease [email or web address] Not available 06/2024 15:13:21 Maternal Grandfather Malignant neoplasm of lung [email or web address] Not available 06/23 13:49:15 Brother Asthma [email or web address] Not availab le 07/04/2024 13:49:15 Sister Asthma [...] SNOMED-CT Code Diagnosis ICD10 Code Diagnosis Note [id number] DO RYAN Nugent [facility] Neurology [address] [place] [address] 12/09/2023 15:31:14 12/09/2023 16:01:57 Paresthesia of upper limb 57988854 R20.2 [id number] RON Azar [facility] Bariatric s and Adv Surg [address] [place] [address] 07/04/2024 11:29:18 07/04/2024 14:10:15 Obesity 126120277 E66.9 The patient will be scheduled for [...] completed Disorder o f function of stomach 452462679 K31.89 Pre-surger y evaluation 800425661 Z01.818 Obesity screening 794768 005 Z13.89 Essential hypertension 83950882 I10 Impaired g lucose tolerance 8465515 R73.[id number] [facility] Bariatric s and Adv Surg [address] [place] [address] 07/04/2024 13:49:08 07/04/2024 14:22:02 Dietary management surveillance 135580046 Z71.3 Completed nutrition evaluation and education with [...] to patient based on recommende d surgery. [id number] Forest Mena MD [place] [address] [facility] [place] [address] 08/01/2024 09:01:56 08/01/2024 09:49:38 Preoperative cardiovascular examination 381700119 Z01.810 23-year-ol d female sent for preoperati ve cardiovasc ular evaluation for weight loss surgery. She is physically active asymptomat ic can do more than 6 METs with no limitation s. EKG normal sinus rhythm. She can proceed with the surgery as low risk patient for moderate risk procedure from the cardiovasc ular standpoint . Obesity 105983170 E66.9 obesity body mass index 49.8. For weight loss surgery. Recommend sleep apnea evaluation . Essential hypertension 28901347 I10 hypertensi on on hydrochlor othiazide. Recommend switching to beta mathew because she is in the childbeari ng age. Patient declined at this time. She understand s the possible side effects of hydrochlor othiazide. [id number] [address] [facility] Bariatric s and Adv Surg [address] [place] [address] 08/08/2024 12:37:07 08/08/2024 13:20:53 Dietary management surveillance 514755267 Z71.3 [id number] KALI RUBI MD [facility] Bariatric s and Adv Surg [address] [place] [address] 10/04/2024 07:39:52 10/04/2024 14:13:26 Morbid obesity 331919765 E66.01 Pre-surger y evaluation 283578321 Z01.818 Postoperative pain 48154 9007 G89.18 pt will continue pregabalin post operativel y Essential hypertension 16125476 I10 Impaired g lucose tolerance 8048060 R73.03 [id number] RON Azar [facility] Bariatric s and Adv Surg [address] [place] [address] 10/24/2024 07:55:40 10/24/2024 10:33:45 History of gastrectomy 228312725 Z90.3 Encouraged patient to continue focus on intake of adequate protein and hydration. Advised minimum 70 g of protein and 800 calories. Patient is to continue incentive spirometer for another 5-7 days Encouraged ambulation Patient is to start bariatric approved vitamin Follow up 3 weeks Contact dermatitis 11921 004 L25.9 Likely from surgical glue. Patient advised to keep area clean. She may apply Benadryl cream or calamine lotion. Advised she take Zyrtec q.a.m. and Benadryl q.p.m.. Advised she avoid scratching these areas. She is report any worsening symptoms. [id number] RON Azar [place] [facility] [address] [facility] [address] [place] [address] 11/09/2024 08:34:40 11/09/2024 14:27:44 Nausea and vomiting 75367038 R11.2 Long discussion today regarding adherence to [...] UGI to further evaluate - pt request [facility].Alexander bowen is advised to call or go to the ED for any acute worsening of abdominal symptoms.Alexander bowen is to keep scheduled follow-up 11/17/2024 Mild dehydration 5675688 119 108 E86.0 Patient will have to a L normal saline IV rehydratio n today in office. History of gastrectomy 744877922 Z90.3 s/p TORI-s 10/16/24 [id number] RON Azar [facility] S[facility] [address] [facility] [address] [place] [address] 11/17/2024 08:51:00 11/17/2024 09:41:49 Disorder of function of stomach 378924821 K31.89 Long discussion with patient regarding fatigue [...] call for any worsening symptoms Essential hypertension 37676770 I10 Stop monitor and discussed with PCP Impaired g lucose tolerance 7378056 R73.03 History of gastrectomy 500892977 Z90.3 We discussed diet and the importance [...] to correct any vitamin deficienci es. At [facility] risk of nutritional deficit 253853713 Z91.89 Severe obesity 334910952 1 [address] E66.813 E66.01 Z68.[id number] [facility] Bariatric s and Adv Surg [address] [facility] [address] [place] [address] 11/17/2024 09:37:00 11/17/2024 10:29:59 Diet education 66402028 Z71.3 [id number] RON Azar [facility] Bariatric s and Adv Surg [address] [facility] [address] [place] [address] 12/01/2024 09:40:04 12/01/2024 10:22:02 Nausea and vomiting 88518387 R11.2 Long discussion with patient regarding fatigue [...] has been resulted Nutritiona l deficiency state 30149760 E63.9 Encouraged patient see focus on p.o. intake. Advised she continue small frequent sips of protein drinks. History of gastrectomy 005103213 Z90.3 s/p Tori-s 10/16/24 with continued struggles including nausea vomiting p.o. intake.Carmen thorne had upper GIPatient will be scheduled for upper endoscopy for further evaluation Epigastric pain 85954840 R10.13 Advised patient to continue omeprazole . [...] atient is advised to go to this [place] ED for any acute worsening symptoms [id number] [address] [facility] Bariatric [facility] and Adv Surg [address] [facility] [address] [facility] [address] 12/27/2024 09:45:05 12/27/2024 11:07:46 Diet education 97085130 Z71.3 [id number] RON Azar [facility] Bariat[facility] Adv Surg [address] [facility] [address] [place] [address] 12/27/2024 09:47:12 12/27/2024 12:24:19 Gestation period, 13 weeks 21952913 Z3A.[address] Guillen today.Advi sed to continue vitamins. Next labs due January 2025Pt has appt with white lead grinder today to discuss caloric need. Advise minimal 6634-1355 calories daily and 90 g proteinPt has junior high school principal appt today in [place] to establish carePt given copy of recent labs to share with OB History of gastrectomy 847544258 Z90.3 s/p Tori-s 10/16/24Fol lowup with labs January 2025 Health Concerns Section Related Observation LastModified by Organization Detai ls LastModified Time None Recorded Concern Status LastModified by Organization Details LastModified Time None Recorded Advance Directives Directive None Recorded Payers Insurance Date Sequence Insurance Name Policy Number Policy Sanchez Covered Member ID Sanchez Member ID Guarantor Name 06/21/2024 1 [facility] [place] Penelope N Christina [id number] Penelope Christina 11/06/2024 [facility] [id number] Penelope N Christina [id number] Penelope Christina 06/21/2024 2 [place] [id number] 1 Penelope Christina [id number] Penelope Isabel Christina 08/01/2024 1 [facility] [place] Penelope Valdov[place]oston [id number] Penelope Christina 12/24/2024 1 [facility] [place] Penelope N Christina [id number] Penelope Christina Notes Date Note Type Note [...] to return to work. 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 [...] s/p Tori-s 10/16/24Patient states she went to [facility] ED last night for nausea [...] glue from each incision.Path benign RON Azar [address], [place], [address], [facility] - [place] - [place] & [place] 11/17/2024 09:31:49 11/17/2024 text/html RDN [...] food stamps ISRAEL HERNÁNDEZ, RD [address], [place], [address], [facility] - [place] [facility] & [place] 11/17/2024 09:58:38 12/01/2024 text/html Patient presents today for sick visit s/p Tori-s 10/16// UGI (Read as ERIN HOPSON [facility]) No stricture identified no hiatal [...] to return to work. 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
--- OUTSIDE RECORDS SUMMARY | 2024-12-31 00:19 | XMS_ITS | Continuity of Care Document ---
Author Organization [place] - NT [facility] & [facility] Adv Surg Address [address] [place] [address] Care Team Providers Care Grain Roaster Name Role Phone KARLOS CHESTER Primary Care Provider [phone] Assessment No assessment recorded. Plan of Treatment Reminders Order Date Submit Date Provider Last Modified By Organization Details Last Modified Time Details Appointments OV EST 2024 01:20P M ANAIS Azar Not available Not available Not available OV EST 2024 01:40P M IS[address] Not available Not available Not available Lab None recorded. Referral None recorded. Procedures None recorded. Surgeries None recorded. Imaging RF, upper gastroint estinal tract, w/ air, w/ contrast PO 2024 025 [facility] ([facility]), [address], [place], [address], 11/10/2024 12:55:13 Medication Orders Carafate 1 gram tablet 2024 025 [facility], [address], [place], [address], 12/27/2024 09:50:53 Patient TargetsNo targets recorded. Patient InstructionsNo instructions recorded. Reason for Referral None Reported. Results Created Date Observation Date Name Description Value Unit Range Abnormal Flag Note LastModifiedBy Organization Detail LastModifiedTime 11/11/1911/10/2024 RF, upper gastr ointe yadira l tract , w/ air, w/ contr ast PO No observ ation record ed. [facility] [address], [place], [address], 11/14/2024 15:11:14 11/11/19 25 11/10/2024 RF, upper gastr ointe yadira l tract , w/ air, w/ contr ast PO No observ ation record ed. [facility] (Scheduling) [address], [place], [address], 11/14/2024 15:11:15 11/11/19 25 11/10/2024 RF, upper gastr ointe yadira l tract , w/ air, w/ contr ast PO No observ ation record ed. [email or web address] [facility] (Scheduling) [address], [place], [address], 11/10/2024 14:58:54 Result Notes None recorded. Problems Name Problem SNOMED Code Status Onset Date Resolution Date Notes Provider Name and Address Organization Details Recorded Time Essential hypertensi on 71083052 Active 2023 ANAIS Azar [address], [place], [address] , [place] - [facility] - [place] & [place] 4 12:30:28 Obesity 441480033 Active 2023 ANAIS Azar [address], [place], [address] , [place] - [facility] - [place] & [place] 4 12:30:50 Disorder of function of stomach 478369492 Active [address], [place], [address] , [place] - [facility] - [place] & [place] 4 12:30:50 Impaired glucose tolerance 0388045 Active [address], [place], [address] , [place] - [facility] - [place] & [place] 4 12:31:02 Postoperat nicholas pain 661769427 Active 2024 ANAIS Azar [address], [place], [address] , [place] [facility] [place] & [place] 5 08:04:37 Contact dermatitis 23432796 Active 2024 ANAIS Azar [address], [place], [address] , [place] [facility] [place] & [place] 5 10:32:01 Nausea 121837025 Active 2024 ANAIS Azar [address], [place], [address] , [place] [facility] - [place] & [place] 5 09:06:20 Nausea and vomiting 70000624 Active 2024 ANAIS Azar [address], [place], [address] , [place] - [facility] - [place] & [place] 5 10:19:41 Bilious vomiting 03594205 Active 2024 ANAIS Azar [address], [place], [address] , [place] - [facility] - [place] & [place] 5 09:06:37 Mild dehydratio n 0526330259409 Active 2024 ANAIS Azar [address] [facility], [place], [address] , [place] [facility] [place] & [place] 5 09:09:44 Intentiona l weight loss 111709095 Active 2024 ANAIS Azar [address], [place], [address] , [place] - [facility] - [place] & [place] 5 09:06:38 Body mass index 40+ - severely obese 277698880 Active 2024 ANAIS Azar [address], [place], [address] , [place] - [facility] - [place] & [place] 5 09:07:05 Severe obesity 3726800048046 4 Active 2024 ANAIS Azar [address], [place], [address] , [place] [facility] [place] & [place] 5 09:07:24 Nutritiona l deficiency state 56915386 Active 2024 ANAIS Azar [address], [place], [address] , [place] [facility] [place] & [place] 5 10:04:26 Epigastric pain 04371668 Active [address], [place], [address] , [place] [facility] & [place] 5 10:16:35 Gestation period, 13 weeks 84464514 Active [address], [place], [address] , [place] [facility] & [place] 5 10:26:24 Paresthesi a of upper limb 59668594 Active 2023 Raquel Guillen DO [address], [place], [address] , [place] - [facility] - [place] & [place] 4 15:38:11 Problem Notes None recorded. Procedures Surgical History Date Name Laterality Status Provider Name and Address Organization Details Recorded Time 10/16/19 25 procedure on duodenum completed Parris GUTHRIE - [facility] & [place] 11/09/2024 08:47:34 12/09/19 24 EMG/ Nerve Conduction Study completed DO [address], [place], [address], [place] - [facility] [place] & [place] 12/09/2023 15:38:[address] completed [address], [place], [address], [place] [facility] [place] & [place] 07/04/2024 12:57:53 extraction of wisdom tooth completed Parris GUTHRIE - [facility] - [place] & [place] 07/03/2024 15:07:44 Tonsillectomy completed Parris Torres [place] - [facility] & [place] 07/03/2024 15:07:52 procedure on ganglion cyst completed Stephanie Castro [facility] & [place] 10/04/2024 07:53:08 Imaging Results None recorded. Procedure [...] Updated DateTime 5 170.18 cm 43 kg/m2 619193. 11 g 97.5 [degF] 92 /min 147 mm[Hg] 98 mm[Hg] Parris Torres [facility] & [place] 08:47:54 Social History Question Answer Notes LastModified by Organizat ion Details LastModified Time Tobacco Smoking Status Never Smoker Parris Torres [facility], [facility] & [place] 07/03/2024 15:12:10 What Is Your Level Of Alcohol Consumption? Occasional [email or web address] Information not available 07/03/2024 What Is Your Level Of Caffeine Consumption? Occasional [email or web address] Information not available 07/04/2024 Do You Use Any Illicit Or Recreational Drugs? No [email or web address] Information not available 07/03/2024 Sex: Female Functional Status None recorded. Mental Status None recorded. Family History Relationship Description Onset Age of this Age Resolved Age Notes LastModified by Organization Details LastModified Time Father Hypertensive disorder [email or web address] Not available 06/2024 15:12:25 Father Hypercholest erolemia [email or web address] Not available 06/2024 15:12:51 Mother Hypertensive disorder [email or web address] Not available 06/2024 15:12:25 Mother Hypercholest erolemia [email or web address] Not available 06/2024 15:12:51 Mother Asthma [email or web address] Not availabl e 07/04/2024 13:49:15 Mother Chronic obstructive pulmonary disease [email or web address] Not available 06/2024 15:13:21 Maternal Grandmother Hypertensive disorder [id number] Not available 06/2024 15:12:25 Maternal Grandmother Chronic obstructive pulmonary disease [email or web address] Not available 06/2024 15:13:21 Maternal Grandfather Malignant neoplasm of lung [email or web address] Not available 06/23 13:49:15 Brother Asthma [email or web address] Not availab le 07/04/2024 13:49:15 Sister Asthma [email or web address] Not availabl e 07/04/2024 13:49:15 Medical History [...] SNOMED-CT Code Diagnosis ICD10 Code Diagnosis Note [id number] [facility] [address] [place] [address] 10/24/2024 07:55:40 10/24/2024 10:33:45 History of gastrectomy 334968389 Z90.3 Encouraged patient to continue focus on intake of adequate protein and hydration. Advised minimum 70 g of protein and 800 calories. Patient is to continue incentive spirometer for another 5-7 days Encouraged ambulation Patient is to start bariatric approved vitamin Follow up 3 weeks Contact dermatitis 15908 [id number] L25.9 Likely from surgical glue. Patient advised to keep area clean. She may apply Benadryl cream or calamine lotion. Advised she take Zyrtec q.a.m. and Benadryl q.p.m.. Advised she avoid scratching these areas. She is report any worsening symptoms. [id number] [facility] [address] [place] [address] 11/09/2024 08:34:40 11/09/2024 14:27:44 Nausea and vomiting 11238700 R11.2 Long discussion today regarding adherence to [...] UGI to further evaluate - pt request [facility].Alexander bowen is advised to call or go to the ED for any acute worsening of abdominal symptoms.P andrés is to keep scheduled follow-up 11/17/2024 Mild dehydration 0879578 119 108 E86.0 Patient will have to a L normal saline IV rehydratio n today in office. History of gastrectomy 668977256 Z90.3 s/p TORI-s 10/16/24 Health Concerns Section Related Observation LastModified by Organization Detai ls LastModified Time None Recorded Concern Status LastModified by Organization Details LastModified Time None Recorded Payers Encounter Date Sequence Insurance Name Policy Number Policy Sanchez Covered Member ID Sanchez Member ID Guarantor Name 11/09/2024 1 [facility] ([facility]ICAID REPLACEMENT - HMO) [id number] Penelope [place] Christina [id number] Penelope Christina Notes Date Note Type Note [...] glue from each incision.Path benign ANAIS Azar [address], [place], [address], [facility] - [facility] - [place] & [place] 11/09/2024 13:41:24 OBGyn Episode No OBEpisode recorded.
[2024-12-31 00:25] VITALS: BP 136/83; PULSE 105; RESP 16; TEMP 36.9; O2SAT 99; BMI 33.0
[2024-12-31 00:27] LABS: Appearance,Urine CLOUDY (Clear); Blood, Urine 3+ (Negative); Glucose,Urine (UA) Negative (Negative); Ketones,Urine 3+ (Negative); Leukocyte Esterase,Urine Negative (Negative); Microscopic, Urine URINE MICROSCOPIC (MICROSCOPIC); Nitrate,Urine Negative (Negative); PH,Urine 5.5 (5.0-8.5); Protein,Urine 2+ (Negative); Specific Gravity, Urine >= 1.030 (1.005-1.030)
[2024-12-31 00:28] LABS: Color,Urine Dark Yellow (Yellow)
[2024-12-31 00:30] LABS: Bilirubin,Urine 1+ (Negative)
[2024-12-31 00:38] LABS: Bacteria,Urine 1+ /lpf; RBC,Urine 50-100 #/hpf (0-3)
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
[2024-12-31 01:23] LABS: Basophils % 0.1 % (0.1-2.0); Eosinophils % 0.4 % (0.1-12.0); Hematocrit 37.3 % (37.0-47.0); Immature Granulocytes # 0.04 10^3uL; Immature Granulocytes % 0.4 %; Lymphocytes # 2.9 K/mm3 (0.7-4.5); Lymphocytes % 32.7 % (10-50); Mean Corpuscular HGB Conc 34.9 g/dL (31.8-35.4); Mean Corpuscular Volume 86.1 fl (81-99); Mean Platelet Volume 11.5 fl (7.4-10.4); Monocytes # 0.4 K/mm3 (0.1-1.0); Monocytes % 4.6 % (1.7-9.3); Neutrophils # 5.5 K/mm3 (1.8-7.8); Neutrophils % 61.8 % (37.0-80.0); Nucleated Red Blood Cells # 0 10^3/uL; Nucleated Red Blood Cells % 0 %; Platelet Count 219 K/mm3 (142-424); Red Blood Count 4.33 M/mm3 (4.20-5.40); Red Cell Distribution Width 14.5 % (11.5-17.5); Red Cell Distribution Width-SD 45.4 fL
[2024-12-31 01:34] LABS: Alanine Aminotransferase 54 U/L (12-78); Albumin Level 4.2 g/dl (3.5-5.0); Albumin/Globulin Ratio 1.4 (1.1-1.8); Alkaline Phosphatase 81 U/L (38-126); Anion Gap 9.7 mEq/L (5-15); Aspartate Amino Transferase 45 U/L (14-36); Bilirubin,Total 0.9 mg/dl (0.2-1.3); Blood Urea Nitrogen 6 mg/dl (7-17); Calcium 9.5 mg/dl (8.4-10.2); Carbon Dioxide 21 mmol/L (22.0-30.0); Chloride 107 mmol/L (98-107); Creatinine Clearance Estimated 313 mL/min (50-200); Estimated Glomerular Filt Rate 193 ml/min (>60); GFR (African American) 233 ML/MIN (>60); Globulin 2.9 g/dL (1.3-3.2); Glucose 86 mg/dl (74-100); Magnesium 1.9 mg/dl (1.6-2.3); Potassium 3.7 mmoL/L (3.5-5.1); Sodium 134 mmol/L (136-145); Total Protein,Serum 7.1 g/dl (6.3-8.2)
[2024-12-31 01:58] VITALS: BP 111/62; PULSE 62; RESP 14; TEMP 36.6; O2SAT 96
--- NOTE | 2025-01-03 10:51 | PC.NURSE ---
urine culture suggests contamination, ntd
== END 2024-12-31 02:03 | disposition home or self-care (01) ==
LOC: ER 00:17
PROVIDERS: Emergency Provider Emergency Medicine; PCP Nurse Practitioner Family
DX: O41.8X11 Other specified disorders of amniotic fluid and membranes, first trimester, fetus 1 (principal); O20.9 Hemorrhage in early pregnancy, unspecified; Z3A.13 13 weeks gestation of pregnancy
CPT/HCPCS: 80053; 81001; 83735; 85025; 86850; 87086; 99284

== ENCOUNTER 2025-01-02 15:36 | Outpatient (CLI) | payer OTHER, SELFPAY ==
--- OUTSIDE RECORDS SUMMARY | 2025-01-02 15:38 | XMS_ITS | Continuity of Care Document ---
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 Pt reports that social service assistant did reach out to her but there are not any other options available in her area. Provided pt with some ensure clear samples because she can keep those down. ??? RDN will monitor weight loss, labs, meds, and lifestyle modifications. Will f/up as scheduled or PRN. [email or web address] Not available 11/17/2024 09:58:18 Plan of Treatment [...] ast PO No observ ation record ed. [facility] [address], [place], [address], 11/14/2024 15:11:14 11/11/19 25 11/10/2024 RF, upper gastr ointe yadira l tract , w/ air, w/ contr ast PO No observ ation record ed. [facility] (Scheduling) [address], [place], [address], 11/14/2024 15:11:15 11/11/19 25 11/10/2024 RF, upper gastr ointe yadira l tract , w/ air, w/ contr ast PO No observ ation record ed. [email or web address] [facility] (Scheduling) [address], [place], [address], 11/10/2024 14:58:54 Result Notes None recorded. Problems Name Problem SNOMED Code Status Onset Date Resolution Date Notes Provider Name and Address Organization Details Recorded Time Essential hypertensi on 32455340 Active [address], [place], [address] , [place] [facility] & [place] 4 12:30:28 Obesity 158998027 Active [address], [place], [address] , [place] [facility] & [place] 4 12:30:50 Disorder of function of stomach 440304654 Active [address], [place], [address] , [place] [facility] & [place] 4 12:30:50 Impaired glucose tolerance 4987050 Active [address], [place], [address] , [place] [facility] & [place] 4 12:31:02 Postoperat nicholas pain 667898407 Active [address], [place], [address] , [place] [facility] & [place] 5 08:04:37 Contact dermatitis 39388905 Active [address], [place], [address] , [place] [facility] & [place] 5 10:32:01 Nausea 300904120 Active [address], [place], [address] , [place] [facility] [facility] & [place] 5 09:06:20 Nausea and vomiting 04932021 Active [address], [place], [address] , [place] [facility] [facility] & [place] 5 10:19:41 Bilious vomiting 13509186 Active [address], [place], [address] , [place] [facility] [facility] & [place] 5 09:06:37 Mild dehydratio n 3040798179031 Active [address], [place], [address] , [place] [facility] [facility] & [place] 5 09:09:44 Intentiona l weight loss 176191533 Active [address], [place], [address] , [place] [facility] 5 09:06:38 Body mass index 40+ - severely obese 134490321 Active 2024 [address], [place], [address] , [place] [facility] 5 09:07:05 Severe obesity 3779974604798 4 Active 2024 [address], [place], [address] , [place] [facility] 5 09:07:24 Nutritiona l deficiency state 51426019 Active [address]24 [address], [place], [address] , [place] [facility] 5 10:04:26 Epigastric pain 85494682 Active [address]24 [address], [place], [address] , [place] 5 10:16:35 Gestation period, 13 weeks 53314670 Active 2024 [address], [place], [address] , [place] [facility] 5 10:26:24 Paresthesi a of upper limb 53423846 Active [address], [place], [address] , [place] [facility] & [place] 4 15:38:11 Problem Notes None recorded. Procedures Surgical History Date Name Laterality Status Provider Name and Address Organization Details Recorded Time 10/16/19 25 procedure on duodenum completed Parris Torres [place] - [facility] - [place] & [place] 11/09/2024 08:47:34 12/09/19 24 EMG/ Nerve Conduction Study completed DO [address], [place], [address], [facility] & [place] 12/09/2023 15:38:04 Cholecystectomy completed RON Azar [address], [place], [address], [facility] & [place] 07/04/2024 12:57:53 extraction of wisdom tooth completed Parris Torres [facility] & [place] 07/03/2024 15:07:44 Tonsillectomy completed Parris Torres [facility] & [place] 07/03/2024 15:07:52 procedure on ganglion cyst completed Stephanie Castro [facility] & [place] 10/04/2024 07:53:08 Imaging Results None recorded. Procedure [...] completed Not Available Not Available [facility] mg disintegrat ing tablet 12/27 completed Not Available Not Available Not Available Vitals Date Recorded Body height Body mass index (BMI) Body weight Heart rate Body temperature Systolic blood pressure Diastolic blood pressure Provider Name and Address Organization Details Last Updated DateTime 5 170.18 cm 42.1 kg/m2 562773. 55 g 126 /min 97.7 [degF] 151 mm[Hg] 103 mm[Hg] Jessica Mcnally [facility] & [place] 5 09:02:32 Social History Question Answer Notes LastModified by Saavn Details LastModified Time Tobacco Smoking Status Never Smoker Parris Torres [facility], [facility] & [place] 07/03/2024 15:12:10 What Is Your Level Of Caffeine Consumption? Occasional [email or web address] Information not available 07/04/2024 Sex: Female Functional Status Question Answer Note LastModified by [employer] Details LastModified Time Do you use any illicit or recreational drugs? No [email or web address] Information not available 07/03/2024 What is your level of alcohol consumption? Occasional [email or web address] Information not available 07/03/2024 Mental Status None recorded. Family History Relationship Description Onset Age of this Age Resolved Age Notes LastModified by Organization Details LastModified Time Father Hypertensive disorder [email or web address] Not available 06/2024 15:12:25 Father Hypercholest erolemia Not available 06/2024 15:12:51 Mother Hypertensive disorder [email or web address] Not available 06/2024 15:12:25 Mother Hypercholest erolemia [email or web address] Not available 06/2024 15:12:51 Mother Asthma [email or web address] Not availabl e 07/04/2024 13:49:15 Mother Chronic obstructive pulmonary disease [email or web address] Not available 06/2024 15:13:21 Maternal Grandmother Hypertensive disorder Not available 06/2024 15:12:25 Maternal Grandmother Chronic obstructive pulmonary disease [email or web address] Not available 06/2024 15:13:21 Maternal Grandfather Malignant neoplasm of lung [email or web address] Not available 06/23 13:49:15 Brother Asthma [email or web address] Not availab le 07/04/2024 13:49:15 Sister Asthma [email or web address] Not availabl e 07/04/2024 13:49:15 Medical History [...] SNOMED-CT Code Diagnosis ICD10 Code [facility] [id number] [facility] [address] [place] [address] 10/24/2024 07:55:40 10/24/2024 10:33:45 History of gastrectomy 679303456 Z90.3 Encouraged patient to continue focus on intake of adequate protein and hydration. Advised minimum 70 g of protein and 800 calories. Patient is to continue incentive spirometer for another 5-7 days Encouraged ambulation Patient is to start bariatric approved vitamin Follow up 3 weeks Contact dermatitis 77772 004 L25.9 Likely from surgical glue. Patient advised to keep area clean. She may apply Benadryl cream or calamine lotion. Advised she take Zyrtec q.a.m. and Benadryl q.p.m.. Advised she avoid scratching these areas. She is report any worsening symptoms. [id number] [facility] [address] [place] [address] 11/09/2024 08:34:40 11/09/2024 14:27:44 Nausea and vomiting 35880129 R11.2 Long discussion today regarding adherence to [...] UGI to further evaluate - pt request [facility].Alexander bowen is advised to call or go to the ED for any acute worsening of abdominal symptoms.Alexander bowen is to keep scheduled follow-up 11/17/2024 Mild dehydration 1112585 119 108 E86.0 Patient will have to a L normal saline IV rehydratio n today in office. History of gastrectomy 451232682 Z90.3 s/p TORI-s 10/16/24 [id number] RON Azar [facility] Bariatric s and Adv Surg [address] [place] [address] 11/17/2024 08:51:00 11/17/2024 09:41:49 Disorder of function of stomach 631488518 K31.89 Long discussion with patient regarding fatigue [...] call for any worsening symptoms Essential hypertension 97123435 I10 Stop monitor and discussed with PCP Impaired g lucose tolerance 9330542 R73.03 History of gastrectomy 344947434 Z90.3 We discussed diet and the importance [...] to correct any vitamin deficienci es. At [facility] risk of nutritional deficit 143740539 Z91.89 Severe obesity 675796044 1 [address] E66.813 E66.01 Z68.[id number] [facility] samira Bariatric s and Adv Surg [address] [place] [address] 11/17/2024 09:37:00 11/17/2024 10:29:59 Diet education 19451374 Z71.3 Health Concerns Section Related Observation LastModified by Organization Detai ls LastModified Time None Recorded Concern Status LastModified by Organization Details LastModified Time None Recorded Payers Encounter Date Sequence Insurance Name Policy Number Policy Sanchez Covered Member ID Sanchez Member ID Guarantor Name 11/17/2024 1 [facility] ([place]ICA[place] REPLAC[place] - [place]MO[place] Penelope Christina [id number] Penelope Christina Notes Date Note Type Note [...] to return to work. 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
--- OUTSIDE RECORDS SUMMARY | 2025-01-02 15:39 | XMS_ITS | Continuity of Care Document ---
Author Organization [facility] & [facility] Bariatrics and Adv Surg Address [address] [place] [address] Care Team Providers Care Customer Services Coordinator Name Role Phone KARLOS CHESTER Primary Care [...] Organization Details Recorded Time Essential hypertensi on 12214241 Active [address]23 [address], [place], [address] , [facility] & [place] 12:30:28 Obesity 975603219 Active 2023 [address], [place], [address] , [facility] & [place] 4 12:30:50 Disorder of function of stomach 804581379 Active 2023 [address], [place], [address] , [facility] - [facility] & [place] 4 12:30:50 Impaired glucose tolerance 8483367 Active [address]23 [address], [place], [address] , [place] [facility] 4 12:31:02 Postoperat nicholas pain 996574909 Active [address], [place], [address] , [place] [facility] 5 08:04:37 Contact dermatitis 86621165 Active [address], [place], [address] , [place] [facility] 5 10:32:01 Nausea 413120515 Active [address], [place], [address] , [place] [facility] 5 09:06:20 Nausea and vomiting 57719167 Active [address], [place], [address] , [place] [facility] 5 10:19:41 Bilious vomiting 18015309 Active [address], [place], [address] , [place] [facility] 5 09:06:37 Mild dehydratio n 1398485111898 Active [address], [place], [address] , [place] [facility] 5 09:09:44 Intentiona l weight loss 235618477 Active [address], [place], [address] , [place] [facility] [facility] & [place] 5 09:06:38 Body mass index 40+ - severely obese 384389057 Active 2024 [address], [place], [address] , [place] [facility] [facility] & [place] 5 09:07:05 Severe obesity 6939680861710 4 Active [address], [place], [address] , [place] [facility] [facility] & [place] 5 09:07:24 Nutritiona l deficiency state 69537203 Active [address], [place], [address] , [facility] - [facility] & [place] 5 10:04:26 Epigastric pain 27459857 Active [address], [place], [address] , [place] [facility] [facility] & [place] 5 10:16:35 Gestation period, 13 weeks 78975306 Active [address], [place], [address] , [place] [facility] [facility] & [place] 5 10:26:24 Paresthesi a of upper limb 53943392 Active [address], [place], [address] , [place] [facility] [facility] & [place] 4 15:38:11 Problem Notes None recorded. Procedures Surgical History Date Name Laterality Status Provider Name and Address Organization Details Recorded Time 10/16/19 25 procedure on duodenum completed Parris Torres [facility] & [place] 11/09/2024 08:47:34 12/09/19 24 EMG/ Nerve Conduction Study completed DO [address], [place], [address], [place] [facility] & [place] 12/09/2023 15:38:04 Cholecystectomy completed RON [address]ar [address] [facility], [place], [address], [facility] & [place] 07/04/2024 12:57:53 extraction of wisdom tooth completed Parris Torres [facility] & [place] 07/03/2024 15:07:44 Tonsillectomy completed Parris Torres [facility] & [place] 07/03/2024 15:07:52 procedure on ganglion cyst completed Stephanie Matthew [facility] & [place] 10/04/2024 07:53:08 Imaging Results None [...] completed Not Available Not Available Not Available [facility] ODT 75 mg disintegrat ing tablet 12/27 completed Not Available Not Available Not Available Vitals Date Recorded Body height Body temperature Heart rate Body mass index (BMI) Body weight Systolic blood pressure Diastolic blood pressure Provider Name and Address Organization Details Last Updated DateTime 5 170.18 cm 97.1 [degF] 91 /min 40.5 kg/m2 163184. 35 g 141 mm[Hg] 100 mm[Hg] Stephanie Castro [facility] & [place] 5 09:49:04 Social History Question Answer Notes LastModified by [facility] Details LastModified Time Tobacco Smoking Status Never Smoker Parris Torres [facility], [facility] & [place] 07/03/2024 15:12:10 What Is Your Level Of Caffeine Consumption? Occasional [email or web address] Information not available 07/04/2024 Sex: Female Functional Status Question Answer Note LastModified by [facility] Details LastModified Time Do you use any illicit or recreational drugs? No [email or web address] Information not available 07/03/2024 What is your level of alcohol consumption? Occasional [email or web address] Information not available 07/03/2024 Mental Status None recorded. Family History Relationship Description Onset Age of this Age Resolved Age Notes LastModified by Organization Details LastModified Time Father Hypertensive disorder [email or web address] Not available 06/2024 15:12:25 Father Hypercholest erolemia [email or web address] Not available 06/2024 15:12:51 Mother Hypertensive disorder [id number] Not available 06/2024 15:12:25 Mother Hypercholest erolemia [email or web address] Not available 06/2024 15:12:51 Mother Asthma [email or web address] Not availabl e 07/04/2024 13:49:15 Mother Chronic obstructive pulmonary disease [email or web address] Not available 06/2024 15:13:21 Maternal Grandmother Hypertensive disorder [email or web address] Not available 06/2024 15:12:25 Maternal Grandmother Chronic obstructive pulmonary disease [id number] Not available 06/2024 15:13:21 Maternal Grandfather Malignant neoplasm of lung [email or web address] Not available 06/23 13:49:15 Brother Asthma [email or web address] Not availab le 07/04/2024 13:49:15 Sister Asthma [email or web address] Not availabl e 07/04/2024 13:49:15 Medical History [...] SNOMED-CT Code Diagnosis ICD10 Code Diagnosis Note [id number] RON Azar [facility]ariat[facility] and Adv Surg [address] [facility] [address] [place] [address] 12/01/2024 09:40:04 12/01/2024 10:22:02 Nausea and vomiting 80423847 R11.2 Long discussion with patient regarding fatigue [...] has been resulted Nutritiona l deficiency state 65866539 E63.9 Encouraged patient see focus on p.o. intake. Advised she continue small frequent sips of protein drinks. History of gastrectomy 689200684 Z90.3 s/p Tori-s 10/16/24 with continued struggles including nausea vomiting p.o. intake.Carmen thorne had upper GIPatient will be scheduled for upper endoscopy for further evaluation Epigastric pain 67831460 R10.13 Advised patient to continue omeprazole . [...] atient is advised to go to this [place] ED for any acute worsening symptoms [id number] [facility] Bariatric s and Adv Surg [address] [facility] [address] [place] [address] 12/27/2024 09:45:05 12/27/2024 11:07:46 Diet education 15949317 Z71.3 [id number] RON Azar [facility] Bariatric s and Adv Surg [address] [facility] [address] [place] [address] 12/27/2024 09:47:12 12/27/2024 12:24:19 Gestation period, 13 weeks 80314971 Z3A.[address] Guillen today.Advi sed to continue vitamins. Next labs due January 2025Pt has appt with track inspector today to discuss caloric need. Advise minimal 3179-9311 calories daily and [address] app[place] to establish carePt given copy of recent labs to share with OB History of gastrectomy 627235535 Z90.3 s/p Tori-s 10/16/24Fol lowup with labs January 2025 Health Concerns Section Related Observation LastModified by Organization Detai ls LastModified Time None Recorded Concern Status LastModified by Organization Details LastModified Time None Recorded Payers Encounter Date Sequence Insurance Name Policy Number Policy Sanchez Covered Member ID Sanchez Member ID Guarantor Name 12/27/2024 1 [facility] ([place] REPLACEMENT - HMO[place] MARY Christina [id number] Penelope Christina Notes Date Note Type Note [...] Tori-s 10/16/ UGI (Read as [facility]IN [facility]) No stricture identified no hiatal hernia [...] to return to work. 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 with [...] s/p Tori-s 10/16/24Patient states she went to [facility] ED last night for nausea and [...] from each incision.Path benign AyleenRON Darby [address], [place], [address], [place] [facility] [place] 12/27/2024 10:31:49 12/27/2024 text/html RDN [...] minutes and eating once every hourmorning: sausage jazmín ner: 3 course mealprotein shakes sometimes - corepowerdoing regular chocolate milk Drinks: body armor, water, sprite zero to help nausea Foods Not Tolerated: none noted Additional notes/concerns: Able to get food stamps and getting WIC, [place], housing assistance [address], [place], [address], [facility] [place] 12/27/2024 11:07:36 OBGyn Episode No OBEpisode recorded.
--- OUTSIDE RECORDS SUMMARY | 2025-01-02 15:39 | XMS_ITS | Continuity of Care Document ---
Author Organization [facility] Address [address] [place] [address] Care Team Providers Care Emergency Management Specialist Name Role Phone KARLOS CHESTER Primary [...] magnesium , serum or plasma 2024 025 [facility], [address] [place] [address], [id number], 12/08/2024 04:11:53 phosphoru s, serum or plasma 2024 025 [facility], [address] [place] [address], [id number], 12/08/2024 04:11:53 CBC w/ auto diff 2024 025 [facility], [address], [place], [address], 12/02/2024 03:38:32 CMP, serum or plasma 2024 025 [facility], [address], [place], [address], 12/02/2024 03:38:33 Referral None recorded. Procedures None recorded. Surgeries esophagog astroduod enoscopy (SURG) 2024 025 earl Rubi MD, [address], [place], [address], 12/15/2024 11:34:18 Imaging None recorded. Medication Orders thiamine HCl (vitamin B1) 100 mg/mL injection solution 2024 025 [email or web address] Not available 12/27/2024 09:50:37 cyanocoba yves (vit B-12) 1,000 mcg/mL injection solution 2024 025 [email or web address] Not available 12/27/2024 09:50:09 Compazine 5 mg tablet 2024 025 [facility], [address], [place], [address], 12/01/2024 10:20:25 Patient TargetsNo targets recorded. Patient InstructionsNo instructions recorded. Reason for Referral None Reported. Results Created Date Observation Date Name Description Value Unit Range Abnormal Flag Note LastModifiedBy Organization Detail LastModifiedTime 11/11/1911/10/2024 RF, upper gastr ointe yadira l tract , w/ air, w/ contr ast PO No observ ation record ed. [facility] [address], [place], [address], 11/14/2024 15:11:14 11/11/19 25 11/10/2024 RF, upper gastr ointe yadira l tract , w/ air, w/ contr ast PO No observ ation record ed. [facility] (Scheduling) [address], [place], [address], 11/14/2024 15:11:15 11/11/19 25 11/10/2024 RF, upper gastr ointe yadira l tract , w/ air, w/ contr ast PO No observ ation record ed. [email or web address] [facility]) [address], [place], [address], 11/10/2024 14:58:54 Result Notes None recorded. Problems Name Problem SNOMED Code Status Onset Date Resolution Date Notes Provider Name and Address Organization Details Recorded Time Essential hypertensi on 49516095 Active [address], [place], [address] , [place] - [facility] - [place] & [place] 4 12:30:28 Obesity 273432836 Active [address], [place], [address] , [place] [facility] [place] & [place] 4 12:30:50 Disorder of function of stomach 123235445 Active [address], [place], [address] , [place] [facility] [place] 4 12:30:50 Impaired glucose tolerance 8800404 Active [address], [place], [address] , [place] [facility] [place] 4 12:31:02 Postoperat nicholas pain 497601678 Active [address], [place], [address] , [place] [facility] [place] 5 08:04:37 Contact dermatitis 05441091 Active [address], [place], [address] , [place] [facility] [place] 5 10:32:01 Nausea 949574529 Active [address], [place], [address] , [place] [facility] [place] 5 09:06:20 Nausea and vomiting 15369847 Active [address], [place], [address] , [place] 5 10:19:41 Bilious vomiting 48600615 Active 2024 [address], [place], [address] , [place] [facility] [place] 5 09:06:37 Mild dehydratio n 6930005948308 Active [address], [place], [address] , [place] 5 09:09:44 Intentiona l weight loss 277846083 Active [address], [place], [address] , [place] 5 09:06:38 Body mass index 40+ - severely obese 066105709 Active 2024 [address], [place], [address] , [place] [facility] [place] 5 09:07:05 Severe obesity 8423001410432 4 [address], [place], [address] , [place] [facility] [place] 5 09:07:24 Nutritiona l deficiency state 58620936 Active [address], [place], [address] , [place] [facility] [place] 5 10:04:26 Epigastric pain 33140909 Active [address], [place], [address] , [place] 5 10:16:35 Gestation period, 13 weeks 40520792 Active 2024 [address], [facility] [address] , [facility] & [place] 5 10:26:24 Paresthesi a of upper limb 60058904 Active 2023 Raquel Guillen DO [address], [facility] [address] , [facility] & [place] 4 15:38:11 Problem Notes None recorded. Procedures Surgical History Date Name Laterality Status Provider Name and Address Organization Details Recorded Time 10/16/19 25 procedure on duodenum completed Parris Torres [facility] & [place] 11/09/2024 08:47:34 12/09/19 24 EMG/ Nerve Conduction Study completed Raquel Guillen DO [address], [facility] [address], [facility] & [place] 12/09/2023 15:38:04 Cholecystectomy completed RON Azar [address], [facility] [address], [facility] & [place] 07/04/2024 12:57:53 extraction of wisdom tooth completed Parris Torres [facility] & [place] 07/03/2024 15:07:44 Tonsillectomy completed Parris GUTHRIE [facility] & [place] 07/03/2024 15:07:52 procedure on ganglion cyst completed Stephanie Castro [facility] & [place] 10/04/2024 07:53:08 Imaging Results None recorded. Procedure [...] cm 97.3 [degF] 96 /min 41.5 kg/m2 808134. 98 g 120 mm[Hg] 84 mm[Hg] Lorne Hernández-Bec litzy [facility] 5 09:49:02 Social History Question Answer Notes LastModified by Organizat ion Details LastModified Time Tobacco Smoking Status Never Smoker Parris neely, [facility] 07/03/2024 15:12:10 What Is Your Level Of Caffeine Consumption? Occasional [email or web address] Information not available 07/04/2024 Sex: Female Functional Status Question Answer Note LastModified by Organizat ion Details LastModified Time Do you use any illicit or recreational drugs? No [email or web address] Information not available 07/03/2024 What is your level of alcohol consumption? Occasional [email or web address] Information not available 07/03/2024 Mental Status None recorded. Family History Relationship Description Onset Age of this Age Resolved Age Notes LastModified by Organization Details LastModified Time Father Hypertensive disorder [email or web address] Not available 06/2024 15:12:25 Father Hypercholest erolemia [email or web address] Not available 06/2024 15:12:51 Mother Hypertensive disorder [email or web address] Not available 06/2024 15:12:25 Mother Hypercholest erolemia [id number] Not available 06/2024 15:12:51 Mother Asthma Not availabl e 07/04/2024 13:49:15 Mother Chronic obstructive pulmonary disease [email or web address] Not available 06/2024 15:13:21 Maternal Grandmother Hypertensive disorder [email or web address] Not available 06/2024 15:12:25 Maternal Grandmother Chronic obstructive pulmonary disease [email or web address] Not available 06/2024 15:13:21 Maternal Grandfather Malignant neoplasm of lung [email or web address] Not available 06/23 13:49:15 Brother Asthma [email or web address] Not availab le 07/04/2024 13:49:15 Sister Asthma [email or web address] Not availabl e 07/04/2024 13:49:15 Medical History [...] SNOMED-CT Code Diagnosis ICD10 Code Diagnosis Note [id number] [facility] [address] [facility] [address] [place], [place] [address] 11/09/2024 08:34:40 11/09/2024 14:27:44 Nausea and vomiting 67382881 R11.2 Long discussion today regarding adherence to [...] further evaluate - pt request [facility].Alexander bowen is advised to call or go to the ED for any acute worsening of abdominal symptoms.Alexander bowen is to keep scheduled follow-up 11/17/2024 Mild dehydration 4930807 119 108 E86.0 Patient will have to a L normal saline IV rehydratio n today in office. History of gastrectomy 602415024 Z90.3 s/p TORI-s 10/16/24 [id number] [facility] [address] [facility] [address] [facility] [address] 11/17/2024 08:51:00 11/17/2024 09:41:49 Disorder of function of stomach 230602926 K31.89 Long discussion with patient regarding fatigue [...] call for any worsening symptoms Essential hypertension 28460998 I10 Stop monitor and discussed with PCP Impaired g lucose tolerance 9638546 R73.03 History of gastrectomy 073266441 Z90.3 We discussed diet and the importance [...] to correct any vitamin deficienci es. At [facility] risk of nutritional deficit 564501041 Z91.89 Severe obesity 004146075 1 [address]104 E66.813 E66.01 Z68.[id number] [facility] [address] [facility] [address] [place] [address] 11/17/2024 09:37:00 11/17/2024 10:29:59 Diet education 88287178 Z71.3 [id number] R[address] [facility] [address] [facility] [address] [place] [address] 12/01/2024 09:40:04 12/01/2024 10:22:02 Nausea and vomiting 27853391 R11.2 Long discussion with patient regarding fatigue [...] has been resulted Nutritiona l deficiency state 37764540 E63.9 Encouraged patient see focus on p.o. intake. Advised she continue small frequent sips of protein drinks. History of gastrectomy 382229849 Z90.3 s/p Tori-s 10/16/24 with continued struggles including nausea vomiting p.o. intake.Carmen thorne had upper GIPatient will be scheduled for upper endoscopy for further evaluation Epigastric pain 92289988 R10.13 Advised patient to continue omeprazole . [...] atient is advised to go to this [facility] ED for any acute worsening symptoms Health Concerns Section Related Observation LastModified by Organization Detai ls LastModified Time None Recorded Concern Status LastModified by Organization Details LastModified Time None Recorded Payers Encounter Date Sequence Insurance Name Policy Number Policy Sanchez Covered Member ID Sanchez Member ID Guarantor Name 12/01/2024 1 [facility] [id number] Penelope Christina [id number] Penelope Christina Notes Date Note Type Note Provider Name and Address Organization Details Recorded Time 12/01/2024 text/html Patient presents today for sick visit s/p Tori-s 10/16// UGI (Read as ERIN HOPSON [facility]) No stricture identified no hiatal [...] to return to work. 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 [...] glue from each incision.Path benign [address] [address], [place], [address], [place] [facility] [place] 12/01/2024 10:37:51 OBGyn Episode No OBEpisode recorded.
[2025-01-02 16:40] LABS: Basophils % 0.2 % (0.1-2.0); Eosinophils % 0.2 % (0.1-12.0); Hematocrit 38.1 % (37.0-47.0); Hemoglobin 13.1 g/dL (12.2-16.2); Immature Granulocytes # 0.06 10^3uL; Immature Granulocytes % 0.7 %; Lymphocytes # 2.5 K/mm3 (0.7-4.5); Lymphocytes % 31.3 % (10-50); Mean Corpuscular HGB Conc 34.4 g/dL (31.8-35.4); Mean Corpuscular Hemoglobin 29.6 pg (27.0-31.2); Mean Corpuscular Volume 86.2 fl (81-99); Mean Platelet Volume 11.2 fl (7.4-10.4); Monocytes # 0.4 K/mm3 (0.1-1.0); Monocytes % 5.2 % (1.7-9.3); Neutrophils % 62.4 % (37.0-80.0); Nucleated Red Blood Cells # 0 10^3/uL; Nucleated Red Blood Cells % 0 %; Platelet Count 245 K/mm3 (142-424); Red Blood Count 4.42 M/mm3 (4.20-5.40); Red Cell Distribution Width 14.6 % (11.5-17.5); Red Cell Distribution Width-SD 45.8 fL
[2025-01-02 17:48] LABS: HIV Combo NEGATIVE (Negative)
[2025-01-02 17:56] LABS: Hepatitis C Ab Qual. W/ RFX NEGATIVE (Negative)
[2025-01-03 08:24] LABS: Hepatitis B Surface Antigen Negative (Negative); Rubella Antibodies, IgG 4.81 index (Immune >0.99)
[2025-01-03 09:52] LABS: RPR W/RFX Titers Nonreactive (Nonreactive)
== END 2025-01-02 23:59 | disposition home or self-care (01) ==
LOC: LAB 15:37
PROVIDERS: PCP Nurse Practitioner Family; Visit Provider Obstetrics & Gynecology
DX: Z34.92 Encounter for supervision of normal pregnancy, unspecified, second trimester (principal); Z3A.14 14 weeks gestation of pregnancy; Z33.1 Pregnant state, incidental
CPT/HCPCS: 36415; 85025; 86592; 86762; 86803; 86850; 87340; 87389

== ENCOUNTER 2025-01-09 11:24 | Outpatient (CLI) | payer OTHER, SELFPAY ==
--- OUTSIDE RECORDS SUMMARY | 2025-01-09 11:26 | XMS_ITS | Continuity of Care Document ---
Author Organization [facility] Address [address] [place] [address] Care Team Providers Care Operations And Maintenance Supervisor Name Role Phone KARLOS CHESTER Primary Care Provider Assessment No assessment recorded. Plan of Treatment Reminders Order Date Submit Date Provider Last Modified By Organization Details Last Modified Time Details Appointments OV EST 2024 01:20P M RON Aazr Not available Not available Not available OV EST 2024 01:40P M IS[address]EL HERN[address]Z [address] Not available Not available Not available Lab folate, serum 2024 025 [facility], [address], [address], [place], [address], 11/24/2024 18:36:58 prealbumi n, serum 2024 025 [facility], [address], [address], [place], [address], 11/24/2024 18:37:01 thiamine, QN, blood 2024 025 [facility], [address], [address], [place], [address], 11/24/2024 18:37:00 methylmal jeffrey, QN, serum or plasma 2024 025 [facility], [address], [address], [place], [address], 11/24/2024 18:37:00 CBC w/ auto diff 2024 025 [facility], [address], [address], [place], [address], 11/24/2024 18:36:56 CMP, serum or plasma 2024 025 [facility], [address], [address], [place], [address], 11/24/2024 18:36:57 iron + TIBC + ferritin, serum 2024 025 [facility], [address], [address], [place], [address], 11/24/2024 18:36:55 vitamin D, 25-hydrox y, total, serum 2024 025 [facility], [address], [address], [place], [address], 11/24/2024 18:36:59 vitamin E, serum 2024 025 [facility], [address], [address], [place], [address], 11/24/2024 18:36:57 vitamin A (retinol) , serum 2024 025 [facility], [address], [address], [place], [address], 11/24/2024 18:36:59 TSH + free T4, serum 2024 025 [facility], [address], [address], [place], [address], 11/24/2024 18:36:55 Referral None recorded. Procedures None recorded. Surgeries None recorded. Imaging None recorded. Medication Orders ondansetr on 8 mg disintegr ating tablet 2024 025 [facility], [place], [address], 11/17/2024 09:24:21 Patient TargetsNo targets recorded. Patient InstructionsNo instructions recorded. Reason for Referral None Reported. Results Created Date Observation Date Name Description Value Unit Range Abnormal Flag Note LastModifiedBy Organization Detail LastModifiedTime 11/11/1911/10/2024 RF, upper gastr ointe yadira l tract , w/ air, w/ contr ast PO No observ ation record ed. [facility] [address], [place], [address], 11/14/2024 15:11:14 11/11/19 25 11/10/2024 RF, upper gastr ointe yadira l tract , w/ air, w/ contr ast PO No observ ation record ed. [facility] (Scheduling) [address], [place], [address], 11/14/2024 15:11:15 11/11/19 25 11/10/2024 RF, upper gastr ointe yadira l tract , w/ air, w/ contr ast PO No observ ation record ed. [facility] (Scheduling) [address], [place], [address], 11/10/2024 14:58:54 Result Notes None recorded. Problems Name Problem SNOMED Code Status Onset Date Resolution Date Notes Provider Name and Address Organization Details Recorded Time Essential hypertensi on 82014254 Active 2023 RON Azar [address], [place], [address] , [facility] & [place] 12:30:28 Obesity 779354783 Active [address], [place], [address] , [facility] & [place] 4 12:30:50 Disorder of function of stomach 579579421 Active 2023 RON Azar [address], [place], [address] , [place] [facility] [place] & [place] 4 12:30:50 Impaired glucose tolerance 3281636 Active 2023 RON Azar [address], [place], [address] , [place] [facility] [place] & [place] 4 12:31:02 Postoperat nicholas pain 665815662 Active [address], [place], [address] , [place] [facility] [place] & [place] 5 08:04:37 Contact dermatitis 13256082 Active [address], [place], [address] , [place] [facility] & [place] 5 10:32:01 Nausea 906736382 Active [address], [place], [address] , [place] [facility] [place] & [place] 5 09:06:20 Nausea and vomiting 68797278 Active [address], [place], [address] , [place] [facility] & [place] 5 10:19:41 Bilious vomiting 09052464 Active [address], [place], [address] , [place] [facility] & [place] 5 09:06:37 Mild dehydratio n 4517881168167 Active [address], [place], [address] , [place] [facility] & [place] 5 09:09:44 Intentiona l weight loss 951197139 Active 2024 RON Azar [address], [place], [address] , [facility] & [place] 5 09:06:38 Body mass index 40+ - severely obese 919751311 Active 2024 RON Azar [address], [place], [address] , [place] [facility] & [place] 5 09:07:05 Severe obesity 5759200615562 [address], [place], [address] , [facility] & [place] 5 09:07:24 Nutritiona l deficiency state 97952519 Active 2024 RON Azar [address], [address] , [facility] & [place] 5 10:04:26 Epigastric pain 93719362 Active 2024 RON Azar [address], [address] , [facility] & [place] 5 10:16:35 Gestation period, 13 weeks 68693484 Active 2024 RON Azar [address], [place], [address] , [facility] & [place] 5 10:26:24 Paresthesi a of upper limb 27152476 Active 2023 Raqule Guillen DO [address], [place], [address] , [facility] & [place] 4 15:38:11 Problem Notes None recorded. Procedures Surgical History Date Name Laterality Status Provider Name and Address Organization Details Recorded Time 10/16/19 25 procedure on duodenum completed Parris [facility] [place] 11/09/2024 08:47:34 12/09/19 24 EMG/ Nerve Conduction Study completed Raquel Guillen DO [address], [place], [address], [facility] & [place] 12/09/2023 15:38:04 Cholecystectomy completed RON Azar [address], [place], [address], [facility] & [place] 07/04/2024 12:57:53 extraction of wisdom tooth completed Parris Torres [facility] & [place] 07/03/2024 15:07:44 Tonsillectomy completed Parris Torres [facility] & [place] 07/03/2024 15:07:52 procedure on ganglion cyst completed Stephanie Castro [facility] & [place] 10/04/2024 07:53:08 Imaging Results None [...] Updated DateTime 5 170.18 cm 42.1 kg/m2 787529. 55 g 126 /min 97.7 [degF] 151 mm[Hg] 103 mm[Hg] Jessica Mcnally [facility] & [place] 5 09:02:32 Social History Question Answer Notes LastModified by [employer] Details LastModified Time Tobacco Smoking Status Never Smoker Parris Torres [facility], [facility] & [place] 07/03/2024 15:12:10 What Is Your Level Of Caffeine Consumption? Occasional [email or web address] Information not available 07/04/2024 Sex: Female Functional Status Question Answer Note LastModified by [employer] Details LastModified Time Do you use any illicit or recreational drugs? No [email or web address] Information not available 07/03/2024 What is your level of alcohol consumption? Occasional [email or web address] Information not available 07/03/2024 Mental Status None recorded. Family History Relationship Description Onset Age of this Age Resolved Age Notes LastModified by Organization Details LastModified Time Father Hypertensive disorder [email or web address] Not available 06/2024 15:12:25 Father Hypercholest erolemia [email or web address] Not available 06/2024 15:12:51 Mother Hypertensive disorder [email or web address] Not available 06/2024 15:12:25 Mother Hypercholest erolemia [id number] Not available 06/2024 15:12:51 Mother Asthma [email or web address] Not availabl e 07/04/2024 13:49:15 Mother Chronic obstructive pulmonary disease [email or web address] Not available 06/2024 15:13:21 Maternal Grandmother Hypertensive disorder [id number] Not available 06/2024 15:12:25 Maternal Grandmother Chronic obstructive pulmonary disease [email or web address] Not available 06/2024 15:13:21 Maternal Grandfather Malignant neoplasm of lung [id number] Not available 06/23 13:49:15 Brother Asthma [email or web address] Not availab le 07/04/2024 13:49:15 Sister Asthma [...] SNOMED-CT Code Diagnosis ICD10 Code Diagnosis Note [id number] [facility] [address] [place] [address] [address] [place] [address] 10/24/2024 07:55:40 10/24/2024 10:33:45 History of gastrectomy 668764665 Z90.3 Encouraged patient to continue focus on intake of adequate protein and hydration. Advised minimum 70 g of protein and 800 calories. Patient is to continue incentive spirometer for another 5-7 days Encouraged ambulation Patient is to start bariatric approved vitamin Follow up 3 weeks Contact dermatitis 76141 004 L25.9 Likely from surgical glue. Patient advised to keep area clean. She may apply Benadryl cream or calamine lotion. Advised she take Zyrtec q.a.m. and Benadryl q.p.m.. Advised she avoid scratching these areas. She is report any worsening symptoms. [id number] RON Azar [facility] [address] [place] [address] 11/09/2024 08:34:40 11/09/2024 14:27:44 Nausea and vomiting 21566378 R11.2 Long discussion today regarding adherence to [...] UGI to further evaluate - pt request [facility].Alexander bowen is advised to call or go to the ED for any acute worsening of abdominal symptoms.Alexander bowen is to keep scheduled follow-up 11/17/2024 Mild dehydration 3616549 119 108 E86.0 Patient will have to a L normal saline IV rehydratio n today in office. History of gastrectomy 026796262 Z90.3 s/p TORI-s 10/16/24 [id number] RON Azar [facility] [address] [address] [place] [address] 11/17/2024 08:51:00 11/17/2024 09:41:49 Disorder of function of stomach 043449108 K31.89 Long discussion with patient regarding fatigue [...] call for any worsening symptoms Essential hypertension 42994338 I10 Stop monitor and discussed with PCP Impaired g lucose tolerance 8194732 R73.03 History of gastrectomy 340369868 Z90.3 We discussed diet and the importance [...] correct any vitamin deficienci es. At [facility] risk of nutritional deficit 017285010 Z91.89 Severe obesity 847156021 1 [address]104 E66.813 E66.01 Z68.[id number] [facility] [address] [place] [address] 11/17/2024 09:37:00 11/17/2024 10:29:59 Diet education 08576037 Z71.3 Health Concerns Section Related Observation LastModified by Organization Detai ls LastModified Time None Recorded Concern Status LastModified by Organization Details LastModified Time None Recorded Payers Encounter Date Sequence Insurance Name Policy Number Policy Sanchez Covered Member ID Sanchez Member ID Guarantor Name 11/17/2024 1 [facility] ([place]PLAC[place] - [place]) [place] Penelope Christina [id number] Penelope Christina Notes Date Note Type Note [...] to return to work. 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
--- OUTSIDE RECORDS SUMMARY | 2025-01-09 11:27 | XMS_ITS | Continuity of Care Document ---
Author Organization [facility] Address [address] [facility] [address] [place] [address] Care Team Providers Care Brick Veneer Maker Name Role Phone KARLOS CHESTER Primary Care Provider [phone] Assessment No assessment recorded. Plan of Treatment Reminders Order Date Submit Date Provider Last Modified By Organization Details Last Modified Time Details Appointments OV EST 2024 01:20P M RON Azar Not available Not available Not available OV EST 2024 01:40P M ISRAEL HERNÁNDEZ RD Not available Not available Not available Lab magnesium , serum or plasma 2024 025 [facility], [address] [place] [address], [address], 12/08/2024 04:11:53 phosphoru s, serum or plasma 2024 025 [facility], [address] [place] [address], [address], 12/08/2024 04:11:53 CBC w/ auto diff 2024 025 [facility], [address], [place], [address], 12/02/2024 03:38:32 CMP, serum or plasma 2024 025 [facility], [address], [address], [place], [address], 12/02/2024 03:38:33 Referral None recorded. Procedures None recorded. Surgeries esophagog astroduod enoscopy (SURG) 2024 025 earl Rubi MD, [address], [address], [place], [address], 12/15/2024 11:34:18 Imaging None recorded. Medication Orders thiamine HCl (vitamin B1) 100 mg/mL injection solution 2024 025 [email or web address] Not available 12/27/2024 09:50:37 cyanocoba yves (vit B-12) 1,000 mcg/mL injection solution 2024 025 [email or web address] Not available 12/27/2024 09:50:09 Compazine 5 mg tablet 2024 025 [facility], [address], [place], [address], 12/01/2024 10:20:25 Patient TargetsNo targets recorded. Patient InstructionsNo instructions recorded. Reason for Referral None Reported. Results Created Date Observation Date Name Description Value Unit Range Abnormal Flag Note LastModifiedBy Organization Detail LastModifiedTime 11/11/1911/10/2024 RF, upper gastr ointe yadira l tract , w/ air, w/ contr ast PO No observ ation record ed. [facility] [address], [place], [address], 11/14/2024 15:11:14 11/11/19 25 11/10/2024 RF, upper gastr ointe yadira l tract , w/ air, w/ contr ast PO No observ ation record ed. [facility] (Scheduling) [address], [place], [address], 11/14/2024 15:11:15 11/11/19 25 11/10/2024 RF, upper gastr ointe yadira l tract , w/ air, w/ contr ast PO No observ ation record ed. [email or web address] [facility]) [address], [place], [address], 11/10/2024 14:58:54 Result Notes None recorded. Problems Name Problem SNOMED Code Status Onset Date Resolution Date Notes Provider Name and Address Organization Details Recorded Time Essential hypertensi on 06785090 Active [address], [place], [address] , [place] - [place] & [place] 4 12:30:28 Obesity 955521598 Active [address], [place], [address] , [place] 4 12:30:50 Disorder of function of stomach 903611180 Active [address], [place], [address] , [place] 4 12:30:50 Impaired glucose tolerance 8674961 Active [address], [place], [address] , [place] 4 12:31:02 Postoperat nicholas pain 953986801 Active [address], [place], [address] , [place] 5 08:04:37 Contact dermatitis 28878103 Active [address], [place], [address] , [place] 5 10:32:01 Nausea 128908226 Active [address], [place], [address] , [place] 5 09:06:20 Nausea and vomiting 67140543 Active 2024 RON Azar [address], [place], [address] , [place] 5 10:19:41 Bilious vomiting 47974659 Active 2024 RON Azar [address], [place], [address] , [place] 5 09:06:37 Mild dehydratio n 9970538800364 Active [address], [place], [address] , [place] 5 09:09:44 Intentiona l weight loss 979940582 Active [address], [place], [address] , [place] 5 09:06:38 Body mass index 40+ - severely obese 487884203 Active 2024 RON Azar [address], [place], [address] , [place] 5 09:07:05 Severe obesity 9398468297859 [address], [place], [address] , [place] 5 09:07:24 Nutritiona l deficiency state 46344915 Active [address], [place], [address] , [place] 5 10:04:26 Epigastric pain 72460974 Active [address], [place], [address] , [place] 5 10:16:35 Gestation period, 13 weeks 74075763 Active 2024 RON Azar [address], [facility] [address] , [facility] & [place] 5 10:26:24 Paresthesi a of upper limb 43287264 Active 2023 Raquel Guillen DO [address], [facility] [address] , [facility] & [place] 4 15:38:11 Problem Notes None recorded. Procedures Surgical History Date Name Laterality Status Provider Name and Address Organization Details Recorded Time 10/16/19 25 procedure on duodenum completed Parris Torres [facility] & [place] 11/09/2024 08:47:34 12/09/19 24 EMG/ Nerve Conduction Study completed Raquel Guillen DO [address], [facility] [address], [facility] & [place] 12/09/2023 15:38:04 Cholecystectomy completed RON Azar [address], [facility] [address], [facility] & [place] 07/04/2024 12:57:53 extraction of wisdom tooth completed Parris Torres [facility] & [place] 07/03/2024 15:07:44 Tonsillectomy completed Parris GUTHRIE [facility] & [place] 07/03/2024 15:07:52 procedure on ganglion cyst completed Stephanie Castro [facility] & [place] 10/04/2024 07:53:08 Imaging Results None recorded. Procedure [...] cm 97.3 [degF] 96 /min 41.5 kg/m2 788947. 98 g 120 mm[Hg] 84 mm[Hg] Lorne Hernández-Bec litzy [facility] 5 09:49:02 Social History Question Answer Notes LastModified by Organizat ion Details LastModified Time Tobacco Smoking Status Never Smoker Parris neely, [facility] 07/03/2024 15:12:10 What Is Your Level Of Caffeine Consumption? Occasional Information not available 07/04/2024 Sex: Female Functional Status Question Answer Note LastModified by Organizat ion Details LastModified Time Do you use any illicit or recreational drugs? No [email or web address] Information not available 07/03/2024 What is your level of alcohol consumption? Occasional [email or web address] Information not available 07/03/2024 Mental Status None recorded. Family History Relationship Description Onset Age of this Age Resolved Age Notes LastModified by Organization Details LastModified Time Father Hypertensive disorder Not available 06/2024 15:12:25 Father Hypercholest erolemia [email or web address] Not available 06/2024 15:12:51 Mother Hypertensive disorder [email or web address] Not available 06/2024 15:12:25 Mother Hypercholest erolemia [email or web address] Not available 06/2024 15:12:51 Mother Asthma [email or web address] Not availabl e 07/04/2024 13:49:15 Mother Chronic obstructive pulmonary disease [email or web address] Not available 06/2024 15:13:21 Maternal Grandmother Hypertensive disorder [id number] Not available 06/2024 15:12:25 Maternal Grandmother Chronic obstructive pulmonary disease [id number] Not available 06/2024 15:13:21 Maternal Grandfather Malignant neoplasm of lung [email or web address] Not available 06/23 13:49:15 Brother Asthma [email or web address] Not availab le 07/04/2024 13:49:15 Sister Asthma [email or web address] Not availabl e 07/04/2024 13:49:15 Medical History [...] SNOMED-CT Code Diagnosis ICD10 Code Diagnosis Note [id number] RON Azar [facility] [address] [facility] [address] [place], [place] [address] 11/09/2024 08:34:40 11/09/2024 14:27:44 Nausea and vomiting 16609333 R11.2 Long discussion today regarding adherence to [...] UGI to further evaluate - pt request [facility].Alexander bowen is advised to call or go to the ED for any acute worsening of abdominal symptoms.Alexander bowen is to keep scheduled follow-up 11/17/2024 Mild dehydration 5405337 119 108 E86.0 Patient will have to a L normal saline IV rehydratio n today in office. History of gastrectomy 321999542 Z90.3 s/p TORI-s 10/16/24 [id number] RON Azar [facility] [address] [facility] [address] [place] [address] 11/17/2024 08:51:00 11/17/2024 09:41:49 Disorder of function of stomach 125433752 K31.89 Long discussion with patient regarding fatigue [...] call for any worsening symptoms Essential hypertension 52707780 I10 Stop monitor and discussed with PCP Impaired g lucose tolerance 1092704 R73.03 History of gastrectomy 196072697 Z90.3 We discussed diet and the importance [...] any vitamin deficienci es. At [facility] risk of nutritional deficit 156922821 Z91.89 Severe obesity 395296223 1 [address]104 E66.813 E66.01 Z68.[id number] [facility] [address] [facility] [address] [place] [address] 11/17/2024 09:37:00 11/17/2024 10:29:59 Diet education 75462640 Z71.3 [id number] RON Azar [facility] [address] [facility] [address] [place] [address] 12/01/2024 09:40:04 12/01/2024 10:22:02 Nausea and vomiting 16885372 R11.2 Long discussion with patient regarding fatigue [...] has been resulted Nutritiona l deficiency state 88266082 E63.9 Encouraged patient see focus on p.o. intake. Advised she continue small frequent sips of protein drinks. History of gastrectomy 622224891 Z90.3 s/p Tori-s 10/16/24 with continued struggles including nausea vomiting p.o. intake.Carmen thorne had upper GIPatient will be scheduled for upper endoscopy for further evaluation Epigastric pain 21608571 R10.13 Advised patient to continue omeprazole . [...] atient is advised to go to this [place] ED for any acute worsening symptoms Health Concerns Section Related Observation LastModified by Organization Detai ls LastModified Time None Recorded Concern Status LastModified by Organization Details LastModified Time None Recorded Payers Encounter Date Sequence Insurance Name Policy Number Policy Sanchez Covered Member ID Sanchez Member ID Guarantor Name 12/01/2024 1 [facility] [place] (MED[place]PLAC[place] - [id number] Penelope Christina [id number] Penelope Christina Notes Date Note Type Note [...] to return to work. 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 ED last night for nausea and [...] glue from each incision.Path benign RON Azar [address], [place], [address], [place] 12/01/2024 10:37:51 OBGyn Episode No OBEpisode recorded.
[2025-01-09 12:17] LABS: Total Volume,Urine 240 mL (600-1600)
[2025-01-09 12:39] LABS: Total Protein 24 Hour,Urine 12 mg/24 hr (40-90); Total Protein,Urine Random < 5.0 mg/dL (0.0-12.0)
[2025-01-10 15:11] LABS: Protein, Total, Urine 17.9 mg/dL (Not Estab.)
== END 2025-01-09 23:59 | disposition home or self-care (01) ==
LOC: LAB 11:25
PROVIDERS: PCP Nurse Practitioner Family; Visit Provider Obstetrics & Gynecology
DX: O16.2 Unspecified maternal hypertension, second trimester (principal); Z3A.15 15 weeks gestation of pregnancy
CPT/HCPCS: 84155; 84156

== ENCOUNTER 2025-01-16 13:53 | Outpatient (CLI) | payer OTHER, SELFPAY ==
--- OUTSIDE RECORDS SUMMARY | 2025-01-16 13:55 | XMS_ITS | Continuity of Care Document ---
Author Organization [place] [facility] [facility] Address [address] [place] [address] Care Team Providers Care House Wirer Helper Name Role Phone KARLOS CHESTER Primary Care [...] Denied further questions/concerns . Pt reports that psychiatric social worker supervisor did reach out to her but there are not any other options available in her area. Provided pt with some ensure clear samples because she can keep those down. ??? RDN will monitor weight loss, labs, meds, and lifestyle modifications. Will f/up as scheduled or PRN. [email or web address] Not available 11/17/2024 09:58:18 Plan of Treatment [...] ast PO No observ ation record ed. [facility] [address], [place], [address], 11/14/2024 15:11:14 11/11/19 25 11/10/2024 RF, upper gastr ointe yadira l tract , w/ air, w/ contr ast PO No observ ation record ed. [facility] (Scheduling) [address], [place], [address], 11/14/2024 15:11:15 11/11/19 25 11/10/2024 RF, upper gastr ointe yadira l tract , w/ air, w/ contr ast PO No observ ation record ed. [email or web address] [facility] (Scheduling) [address], [place], [address], 11/10/2024 14:58:54 Result Notes None recorded. Problems Name Problem SNOMED Code Status Onset Date Resolution Date Notes Provider Name and Address Organization Details Recorded Time Essential hypertensi on 54154108 Active [address], [place], [address] , [place] [facility] & [place] 4 12:30:28 Obesity 119475024 Active [address], [place], [address] , [place] [facility] & [place] 4 12:30:50 Disorder of function of stomach 805560506 Active [address], [place], [address] , [place] 4 12:30:50 Impaired glucose tolerance 1570484 Active [address], [place], [address] , [place] 4 12:31:02 Postoperat nicholas pain 582562282 Active [address], [place], [address] , [place] 5 08:04:37 Contact dermatitis 01115222 Active [address], [place], [address] , [place] 5 10:32:01 Nausea 114594522 Active [address], [place], [address] , [place] [facility] & [place] 5 09:06:20 Nausea and vomiting 21240698 Active [address], [place], [address] , [place] [facility] & [place] 5 10:19:41 Bilious vomiting 44851877 Active [address], [place], [address] , [place] [facility] & [place] 5 09:06:37 Mild dehydratio n 5047211366665 Active [address], [place], [address] , [place] [facility] & [place] 5 09:09:44 Intentiona l weight loss 026217798 Active [address], [place], [address] , [place] 5 09:06:38 Body mass index 40+ - severely obese 521030193 Active 2024 [address], [place], [address] , [place] 5 09:07:05 Severe obesity 6425076246290 4 Active 2024 RON Azar [address], [place], [address] , [place] 5 09:07:24 Nutritiona l deficiency state 71845535 Active 2024 RON Azar [address], [place], [address] , [place] 5 10:04:26 Epigastric pain 34760180 Active 2024 RON [address], [place], [address] , [place] 5 10:16:35 Gestation period, 13 weeks 28478696 Active 2024 RON Az[address], [place], [address] , [place] 5 10:26:24 Paresthesi a of upper limb 00116858 Active [address], [place], [address] , [place] 4 15:38:11 Problem Notes None recorded. Procedures Surgical History Date Name Laterality Status Provider Name and Address Organization Details Recorded Time 10/16/19 25 procedure on duodenum completed Parris Torres [place] 11/09/2024 08:47:34 12/09/19 24 EMG/ Nerve Conduction Study completed DO [address], [place], [address], [facility] & [place] 12/09/2023 15:38:04 Cholecystectomy completed RON Azar [address], [place], [address], [facility] & [place] 07/04/2024 12:57:53 extraction of wisdom tooth completed Parris Torres [facility] & [place] 07/03/2024 15:07:44 Tonsillectomy completed Parris Torres [facility] & [place] 07/03/2024 15:07:52 procedure on ganglion cyst completed Stephanie Castro [facility] & [place] 10/04/2024 07:53:08 Imaging Results [...] completed Not Available Not Available Not Available [facility] ODT 75 mg disintegrat ing tablet 12/27 completed Not Available Not Available Not Available Vitals Date Recorded Body height Body mass index (BMI) Body weight Heart rate Body temperature Systolic And Diastolic Provider Name and Address Organization Details Last Updated DateTime 5 170.18 cm 42.1 kg/m2 000572. 55 g 126 /min 97.7 [degF] 151/103 mm[Hg] Jessica Mcnally [facility] & [place] 5 09:02:32 Social History Question Answer Notes LastModified by Pet[employer] Details LastModified Time Tobacco Smoking Status Never Smoker Parris Torres [facility], [facility] & [place] 07/03/2024 15:12:10 What Is Your Level Of Caffeine Consumption? Occasional [email or web address] Information not available 07/04/2024 Sex: Female Functional Status Question Answer Note LastModified by [employer] Details LastModified Time Do you use any illicit or recreational drugs? No [email or web address] Information not available 07/03/2024 What is your level of alcohol consumption? Occasional [email or web address] Information not available 07/03/2024 Mental Status None recorded. Family History Relationship Description Onset Age of this Age Resolved Age Notes LastModified by Organization Details LastModified Time Father Hypertensive disorder Not available 06/2024 15:12:25 Father Hypercholest erolemia [email or web address] Not available 06/2024 15:12:51 Mother Hypertensive disorder Not available 06/2024 15:12:25 Mother Hypercholest erolemia [email or web address] Not available 06/2024 15:12:51 Mother Asthma [email or web address] Not availabl e 07/04/2024 13:49:15 Mother Chronic obstructive pulmonary disease [email or web address] Not available 06/2024 15:13:21 Maternal Grandmother Hypertensive disorder [email or web address] Not available 06/2024 15:12:25 Maternal Grandmother Chronic obstructive pulmonary disease Not available 06/2024 15:13:21 Maternal Grandfather Malignant neoplasm of lung [email or web address] Not available 06/23 13:49:15 Brother Asthma [email or web address] Not availab le 07/04/2024 13:49:15 Sister Asthma [email or web address] Not availabl e 07/04/2024 13:49:15 Medical History [...] SNOMED-CT Code Diagnosis ICD10 Code Diagnosis [facility] [id number] [facility] [address] [facility] [address] [place] [address] 10/24/2024 07:55:40 10/24/2024 10:33:45 History of gastrectomy 037528333 Z90.3 Encouraged patient to continue focus on intake of adequate protein and hydration. Advised minimum 70 g of protein and 800 calories. Patient is to continue incentive spirometer for another 5-7 days Encouraged ambulation Patient is to start bariatric approved vitamin Follow up 3 weeks Contact dermatitis 28892 004 L25.9 Likely from surgical glue. Patient advised to keep area clean. She may apply Benadryl cream or calamine lotion. Advised she take Zyrtec q.a.m. and Benadryl q.p.m.. Advised she avoid scratching these areas. She is report any worsening symptoms. [id number] [facility] [address] [facility] [address] [place] [address] 11/09/2024 08:34:40 11/09/2024 14:27:44 Nausea and vomiting 00032582 R11.2 Long discussion today regarding adherence to [...] to keep scheduled follow-up 11/17/2024 Mild dehydration 4226201 119 108 E86.0 Patient will have to a L normal saline IV rehydratio n today in office. History of gastrectomy 351403794 Z90.3 s/p TORI-s 10/16/24 [id number] RON Azar [facility] [address] [place] [address] 11/17/2024 08:51:00 11/17/2024 09:41:49 Disorder of function of stomach 054988187 K31.89 Long discussion with patient regarding fatigue [...] call for any worsening symptoms Essential hypertension 71368573 I10 Stop monitor and discussed with PCP Impaired g lucose tolerance 9356440 R73.03 History of gastrectomy 384880210 Z90.3 We discussed diet and the importance [...] correct any vitamin deficienci es. At [facility] ed risk of nutritional deficit 718107126 Z91.89 Severe obesity 014923648 1 9104 E66.813 E66.01 Z68.41 [id number] YAMINI MILLER [facility] [address] [place], [place] [address] 11/17/2024 09:37:00 11/17/2024 10:29:59 Diet education 24046464 Z71.3 Health Concerns Section Related Observation LastModified by Organization Detai ls LastModified Time None Recorded Concern Status LastModified by Organization Details LastModified Time None Recorded Payers Encounter Date Sequence Insurance Name Policy Number Policy Sanchez Covered Member ID Sanchez Member ID Guarantor Name 11/17/2024 1 [facility] [id number] Penelope Christina [id number] Penelope Christina Notes Date Note Type Note [...] to return to work. 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
--- OUTSIDE RECORDS SUMMARY | 2025-01-16 13:55 | XMS_ITS | Continuity of Care Document ---
Author Organization [facility] Address [address] [place] [address] Care Team Providers Care Laborer [employer]arch [employer] Name Role Phone KARLOS CHESTER Primary Care [...] magnesium , serum or plasma 2024 025 [facility], [address] [place] [address], [address], 12/08/2024 04:11:53 phosphoru s, serum or plasma 2024 025 [facility], [address] [place] [address], [address], 12/08/2024 04:11:53 CBC w/ auto diff 2024 025 [facility], [address], [place], [address], 12/02/2024 03:38:32 CMP, serum or plasma 2024 025 [place], [address], [place], [address], 12/02/2024 03:38:33 Referral None recorded. Procedures None recorded. Surgeries esophagog astroduod enoscopy (SURG) 2024 025 earl Rubi MD, [address], [place], [address], 12/15/2024 11:34:18 Imaging None recorded. Medication Orders thiamine HCl (vitamin B1) 100 mg/mL injection solution 2024 025 [email or web address] Not available 12/27/2024 09:50:37 cyanocoba yves (vit B-12) 1,000 mcg/mL injection solution 2024 025 [email or web address] Not available 12/27/2024 09:50:09 Compazine 5 mg tablet 2024 025 [facility], [address], [place], [address], 12/01/2024 10:20:25 Patient TargetsNo targets recorded. Patient InstructionsNo instructions recorded. Reason for Referral None Reported. Results Created Date Observation Date Name Description Value Unit Range Abnormal Flag Note LastModifiedBy Organization Detail LastModifiedTime 11/11/1911/10/2024 RF, upper gastr ointe yadira l tract , w/ air, w/ contr ast PO No observ ation record ed. [facility] [address], [place], [address], 11/14/2024 15:11:14 11/11/19 25 11/10/2024 RF, upper gastr ointe yadira l tract , w/ air, w/ contr ast PO No observ ation record ed. [facility] (Scheduling) [address], [place], [address], 11/14/2024 15:11:15 11/11/19 25 11/10/2024 RF, upper gastr ointe yadira l tract , w/ air, w/ contr ast PO No observ ation record ed. [email or web address] [facility]) [address], [place], [address], 11/10/2024 14:58:54 Result Notes None recorded. Problems Name Problem SNOMED Code Status Onset Date Resolution Date Notes Provider Name and Address Organization Details Recorded Time Essential hypertensi on 59680820 Active [address], [place], [address] , [place] [facility] - [place] & [place] 4 12:30:28 Obesity 103440450 Active [address], [place], [address] , [place] [facility] [place] 4 12:30:50 Disorder of function of stomach 645699267 Active [address], [place], [address] , [place] [facility] [place] 4 12:30:50 Impaired glucose tolerance 7191700 Active [address], [place], [address] , [place] [place] 4 12:31:02 Postoperat nicholas pain 071054716 Active [address], [place], [address] , [place] [place] 5 08:04:37 Contact dermatitis 36636631 Active [address], [place], [address] , [place] [facility] [place] 5 10:32:01 Nausea 924746920 Active [address], [place], [address] , [place] 5 09:06:20 Nausea and vomiting 85305407 Active 2024 [address], [place], [address] , [place] [facility] 5 10:19:41 Bilious vomiting 06626434 Active 2024 [address], [place], [address] , [place] 5 09:06:37 Mild dehydratio n 1753703492420 Active [address], [place], [address] , [place] 5 09:09:44 Intentiona l weight loss 492364223 Active [address], [place], [address] , [place] 5 09:06:38 Body mass index 40+ - severely obese 024460769 Active 2024 [address], [place], [address] , [place] 5 09:07:05 Severe obesity 1616349933024 4 Active [address], [place], [address] , [place] 5 09:07:24 Nutritiona l deficiency state 54000907 Active [address], [place], [address] , [place] 5 10:04:26 Epigastric pain 62971444 Active [address], [place], [address] , [place] 5 10:16:35 Gestation period, 13 weeks 57775111 Active 2024 [address], [facility] [address] , [facility] & [place] 5 10:26:24 Paresthesi a of upper limb 17932621 Active 2023 Raquel Guillen DO [address], [facility] [address] , [facility] & [place] 4 15:38:11 Problem Notes None recorded. Procedures Surgical History Date Name Laterality Status Provider Name and Address Organization Details Recorded Time 10/16/19 25 procedure on duodenum completed Parris Torres [facility] & [place] 11/09/2024 08:47:34 12/09/19 24 EMG/ Nerve Conduction Study completed Raquel Guillen DO [address], [facility] [address], [facility] & [place] 12/09/2023 15:38:04 Cholecystectomy completed RON Azar [address], [facility] [address], [facility] & [place] 07/04/2024 12:57:53 extraction of wisdom tooth completed Parris Torres [facility] & [place] 07/03/2024 15:07:44 Tonsillectomy completed Parris GUTHRIE [facility] & [place] 07/03/2024 15:07:52 procedure on ganglion cyst completed Stephanie Castro [facility] & [place] 10/04/2024 07:53:08 Imaging [...] Body mass index (BMI) Body weight Systolic And Diastolic Provider Name and Address Organization Details Last Updated DateTime 5 170.18 cm 97.3 [degF] 96 /min 41.5 kg/m2 238312. 98 g 120/84 mm[Hg] Lorne Hernández-Bec litzy [facility] & [place] 5 09:49:02 Social History Question Answer Notes LastModified by Organizat ion Details LastModified Time Tobacco Smoking Status Never Smoker Parris [place]ely, [place] - [facility] & [place] 07/03/2024 15:12:10 What Is Your Level Of Caffeine Consumption? Occasional [email or web address] Information not available 07/04/2024 Sex: Female Functional Status Question Answer Note LastModified by Organizat ion Details LastModified Time Do you use any illicit or recreational drugs? No [email or web address] Information not available 07/03/2024 What is your level of alcohol consumption? Occasional [email or web address] Information not available 07/03/2024 Mental Status None recorded. Family History Relationship Description Onset Age of this Age Resolved Age Notes LastModified by Organization Details LastModified Time Father Hypertensive disorder [email or web address] Not available 06/2024 15:12:25 Father Hypercholest erolemia [email or web address] Not available 06/2024 15:12:51 Mother Hypertensive disorder [email or web address] Not available 06/2024 15:12:25 Mother Hypercholest erolemia [id number] Not available 06/2024 15:12:51 Mother Asthma [email or web address] Not availabl e 07/04/2024 13:49:15 Mother Chronic obstructive pulmonary disease [email or web address] Not available 06/2024 15:13:21 Maternal Grandmother Hypertensive disorder [email or web address] Not available 06/2024 15:12:25 Maternal Grandmother Chronic obstructive pulmonary disease [email or web address] Not available 06/2024 15:13:21 Maternal Grandfather Malignant neoplasm of lung [email or web address] Not available 06/23 13:49:15 Brother Asthma [email or web address] Not availab le 07/04/2024 13:49:15 Sister Asthma [email or web address] Not availabl e 07/04/2024 13:49:15 Medical History [...] SNOMED-CT Code Diagnosis ICD10 Code Diagnosis Note [id number] RON [facility] [address] [facility] [address] [place], [place] [address] 11/09/2024 08:34:40 11/09/2024 14:27:44 Nausea and vomiting 99590027 R11.2 Long discussion today regarding adherence to [...] UGI to further evaluate - pt request [facility].Alexander bowen is advised to call or go to the ED for any acute worsening of abdominal symptoms.Alexander bowen is to keep scheduled follow-up 11/17/2024 Mild dehydration 8643225 119 108 E86.0 Patient will have to a L normal saline IV rehydratio n today in office. History of gastrectomy 583283633 Z90.3 s/p TORI-s 10/16/24 [id number] RON [facility] [address] [facility] [place] [address] 11/17/2024 08:51:00 11/17/2024 09:41:49 Disorder of function of stomach 439041214 K31.89 Long discussion with patient regarding fatigue [...] call for any worsening symptoms Essential hypertension 91434991 I10 Stop monitor and discussed with PCP Impaired g lucose tolerance 4353288 R73.03 History of gastrectomy 685212508 Z90.3 We discussed diet and the importance [...] to correct any vitamin deficienci es. At [facility] risk of nutritional deficit 566964748 Z91.89 Severe obesity 963983796 1 [address] E66[address]813 E66.[address] Z68.[id number] [facility] [address] [place] [address] 11/17/2024 09:37:00 11/17/2024 10:29:59 Diet education 51402893 Z71.3 [id number] RON Azar [facility] [address] [facility] [place] [address] 12/01/2024 09:40:04 12/01/2024 10:22:02 Nausea and vomiting 39778928 R11.2 Long discussion with patient regarding fatigue [...] has been resulted Nutritiona l deficiency state 72825494 E63.9 Encouraged patient see focus on p.o. intake. Advised she continue small frequent sips of protein drinks. History of gastrectomy 716135009 Z90.3 s/p Tori-s 10/16/24 with continued struggles including nausea vomiting p.o. intake.Carmen thorne had upper GIPatient will be scheduled for upper endoscopy for further evaluation Epigastric pain 06918963 R10.13 Advised patient to continue omeprazole . [...] andrés is advised to go to this [place] ED for any acute worsening symptoms Health Concerns Section Related Observation LastModified by Organization Detai ls LastModified Time None Recorded Concern Status LastModified by Organization Details LastModified Time None Recorded Payers Encounter Date Sequence Insurance Name Policy Number Policy Sanchez Covered Member ID Sanchez Member ID Guarantor Name 12/01/2024 1 [facility] (MEDICAID REPLACEMENT - HMO) [id number] Penelope [place] Christina [id number] Penelope Christina Notes Date Note Type Note Provider Name and Address Organization Details Recorded Time 12/01/2024 text/html Patient presents today for sick visit s/p Tori-s 10/16// UGI (Read as ERIN HOPSON [facility]) No stricture identified no hiatal hernia [...] to return to work. 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 [...] incision.Path benign RON Az[address], [place], [address], [place] [facility] [place] 12/01/2024 10:37:51 OBGyn Episode No OBEpisode recorded.
--- OUTSIDE RECORDS SUMMARY | 2025-01-16 13:55 | XMS_ITS | Continuity of Care Document ---
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 Name Role Phone KARLOS CHESTER Primary Care [...] Organization Details Recorded Time Essential hypertensi on 00702906 Active 2023 [address], [place], [address] , [facility] & [place] 12:30:28 Obesity 313145569 Active 2023 [address], [place], [address] , [facility] & [place] 12:30:50 Disorder of function of stomach 642362914 Active 2023 [address], [place], [address] , [facility] - [facility] & [place] 4 12:30:50 Impaired glucose tolerance 4501859 Active 2023 [address], [place], [address] , [place] 4 12:31:02 Postoperat nicholas pain 155157221 Active [address], [place], [address] , [place] 5 08:04:37 Contact dermatitis 35589566 Active [address], [place], [address] , [place] 5 10:32:01 Nausea 464179745 Active [address], [place], [address] , [place] 5 09:06:20 Nausea and vomiting 47357028 Active [address], [place], [address] , [place] 5 10:19:41 Bilious vomiting 03050881 Active [address], [place], [address] , [place] 5 09:06:37 Mild dehydratio n 1653993170017 Active [address], [place], [address] , [place] 5 09:09:44 Intentiona l weight loss 653287949 Active [address], [place], [address] , [place] [facility] & [place] 5 09:06:38 Body mass index 40+ - severely obese 853495322 Active 2024 [address]ON [address], [place], [address] , [place] [facility] & [place] 5 09:07:05 Severe obesity 4982752314160 4 Active [address], [place], [address] , [place] [facility] & [place] 5 09:07:24 Nutritiona l deficiency state 62317866 Active [address], [place], [address] , [facility] - [facility] & [place] 5 10:04:26 Epigastric pain 69356276 Active [address], [place], [address] , [place] [facility] & [place] 5 10:16:35 Gestation period, 13 weeks 78615480 Active [address], [place], [address] , [place] [facility] [facility] & [place] 5 10:26:24 Paresthesi a of upper limb 74826543 Active [address], [place], [address] , [place] [facility] & [place] 4 15:38:11 Problem Notes None recorded. Procedures Surgical History Date Name Laterality Status Provider Name and Address Organization Details Recorded Time 10/16/19 25 procedure on duodenum completed Parris Torres [facility] & [place] 11/09/2024 08:47:34 12/09/19 24 EMG/ Nerve Conduction Study completed DO [address], [place], [address], [place] [facility] & [place] 12/09/2023 15:38:04 Cholecystectomy completed RON Azar [address] [facility], [place], [address], [facility] & [place] 07/04/2024 12:57:53 extraction of wisdom tooth completed Parris Torres [facility] & [place] 07/03/2024 15:07:44 Tonsillectomy completed Parris Torres [facility] & [place] 07/03/2024 15:07:52 procedure on ganglion cyst completed Stephanie Matthew [facility] & [place] 10/04/2024 07:53:08 Imaging Results None recorded. Procedure [...] completed Not Available Not Available Not Available [facility] ODT 75 mg disintegrat ing tablet 12/27 completed Not Available Not Available Not Available Vitals Date Recorded Body height Body temperature Heart rate Body mass index (BMI) Body weight Systolic And Diastolic Provider Name and Address Organization Details Last Updated DateTime 5 170.18 cm 97.1 [degF] 91 /min 40.5 kg/m2 067500. 35 g 141/100 mm[Hg] Stephanie Castro [facility] & [place] 5 09:49:04 Social History Question Answer Notes LastModified by [employer] Details LastModified Time Tobacco Smoking Status Never Smoker Parris Torres [facility], [facility] & [place] 07/03/2024 15:12:10 What Is Your Level Of Caffeine Consumption? Occasional [email or web address] Information not available 07/04/2024 Sex: Female Functional Status Question Answer Note LastModified by [employer] Details LastModified Time Do you use any illicit or recreational drugs? No [email or web address] Information not available 07/03/2024 What is your level of alcohol consumption? Occasional [email or web address] Information not available 07/03/2024 Mental Status None recorded. Family History Relationship Description Onset Age of this Age Resolved Age Notes LastModified by Organization Details LastModified Time Father Hypertensive disorder [email or web address] Not available 06/2024 15:12:25 Father Hypercholest erolemia [email or web address] Not available 06/2024 15:12:51 Mother Hypertensive disorder [email or web address] Not available 06/2024 15:12:25 Mother Hypercholest erolemia [email or web address] Not available 06/2024 15:12:51 Mother Asthma [email or web address] Not availabl e 07/04/2024 13:49:15 Mother Chronic obstructive pulmonary disease [email or web address] Not available 06/2024 15:13:21 Maternal Grandmother Hypertensive disorder [email or web address] Not available 06/2024 15:12:25 Maternal Grandmother Chronic obstructive pulmonary disease [email or web address] Not available 06/2024 15:13:21 Maternal Grandfather Malignant neoplasm of lung [email or web address] Not available 06/23 13:49:15 Brother Asthma [email or web address] Not availab le 07/04/2024 13:49:15 Sister Asthma [email or web address] Not availabl e 07/04/2024 13:49:15 Medical History [...] SNOMED-CT Code Diagnosis ICD10 Code Diagnosis Note [id number] RON [facility]ar [facility] [address] [facility] [address] [place] [address] 12/01/2024 09:40:04 12/01/2024 10:22:02 Nausea and vomiting 40909269 R11.2 Long discussion with patient regarding fatigue [...] has been resulted Nutritiona l deficiency state 77184297 E63.9 Encouraged patient see focus on p.o. intake. Advised she continue small frequent sips of protein drinks. History of gastrectomy 306371828 Z90.3 s/p Tori-s 10/16/24 with continued struggles including nausea vomiting p.o. intake.Carmen thorne had upper GIPatient will be scheduled for upper endoscopy for further evaluation Epigastric pain 74752058 R10.13 Advised patient to continue omeprazole . [...] atient is advised to go to this [place] ED for any acute worsening symptoms [id number] [facility] [address] [facility] [address] [place] [address] 12/27/2024 09:45:05 12/27/2024 11:07:46 Diet education 80168751 Z71.3 [id number] RON Azar [facility] [address] [facility] [address] [place] [address] 12/27/2024 09:47:12 12/27/2024 12:24:19 Gestation period, 13 weeks 36374252 Z3A.[address] Guillen today.Advi sed to continue vitamins. Next labs due January 2025Pt has appt with buyer renter today to discuss caloric need. Advise minimal 8391-0782 [address] daily and [address] app[place] to establish carePt given copy of recent labs to share with OB History of gastrectomy 296699690 Z90.3 s/p Tori-s 10/16/24Fol lowup with labs January 2025 Health Concerns Section Related Observation LastModified by Organization Detai ls LastModified Time None Recorded Concern Status LastModified by Organization Details LastModified Time None Recorded Payers Encounter Date Sequence Insurance Name Policy Number Policy Sanchez Covered Member ID Sanchez Member ID Guarantor Name 12/27/2024 1 [facility] (MEDICAID REPLACEMENT - HMO) MARY Christina [id number] Penelope Christina Notes Date Note Type Note [...] Tori-s 10/16/ UGI (Read as ERIN HOPSON [facility]) No stricture identified no hiatal hernia [...] to return to work. 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 [...] glue from each incision.Path benign RON Azar [address], [place], [address], [facility] - [place] - [place] & [place] 12/27/2024 10:31:49 12/27/2024 text/html RDN met w/ [...] 30 minutes and eating once every hourmorning: silvana noyola ner: 3 course mealprotein shakes sometimes - corepowerdoing regular chocolate milk Drinks: body armor, water, sprite zero to help nausea Foods Not Tolerated: none noted Additional notes/concerns: Able to get food stamps and getting WIC, [place], housing assistance [address]RAEL [address]ERN[address], [address], [place], [address], [facility] - [place] & [place] 12/27/2024 11:07:36 OBGyn Episode No OBEpisode recorded.
--- OUTSIDE RECORDS SUMMARY | 2025-01-16 13:55 | XMS_ITS | Data Portability ---
Author Organization [facility] - [facility] & MONA Berry ADMIN Address [address] [place] [id number] Care Team Providers Care Subassembly Supervisor Name Role Phone KARLOS CHESTER Primary Care Provider Assessment Encounter Date Assessment Date Assessment LastModified by Organization Details LastModified Time 11/17/2024 11/17/2024 A total of 10 minutes was spent with the pt today. ??? Recommendations: 1. Try going to the [employer] tree to find cheaper items to try [...] further questions/concerns . Pt reports that social welfare administrator did reach out to her but there are not any other options available in her area. Provided pt with some ensure clear samples because she can keep those down. ??? RDN will monitor weight loss, labs, meds, and lifestyle modifications. Will f/up as scheduled or PRN. [email or web address] Not available 11/17/2024 09:58:18 12/27/2024 12/27/2024 A [...] 64 fluid oz, try to get in 7194-4464 calories starting now 7. Use [employer] dot to track 8. Take vitamins as [...] modifications. Will f/up as scheduled or PRN. [email or web address] Not available 12/27/2024 11:07:23 Plan of Treatment Reminders Order Date Submit Date Provider Last Modified By Organization Details Last Modified Time Details Appointments OV EST 2024 01:20P M RON Azar Not available Not available Not available OV EST 2024 01:40P M IS[address]EL [address] Not available Not available Not available Lab magnesium , serum or plasma 2024 025 [facility], [address] [place] [address], [address], 12/08/2024 04:11:53 phosphoru s, serum or plasma 2024 025 [facility], [address] [place] [address], [address], 12/08/2024 04:11:53 CBC w/ auto diff 2024 025 [facility], [address], [address], [place], [address], 12/02/2024 03:38:32 CMP, serum or plasma 2024 025 [facility], [address], [address], [place], [address], 12/02/2024 03:38:33 folate, serum 2024 025 [facility], [address], [address], [place], [address], 11/24/2024 18:36:58 prealbumi n, serum 2024 025 [facility], [address], [address], [place], [address], 11/24/2024 18:37:01 thiamine, QN, blood 2024 025 [facility], [address], [address], [place], [address], 11/24/2024 18:37:00 methylmal jeffrey, QN, serum or plasma 2024 025 [facility], [address], [address], [place], [address], 11/24/2024 18:37:00 CBC w/ auto diff 2024 025 [facility], [address], [address], [place], [address], 11/24/2024 18:36:56 CMP, serum or plasma 2024 025 [facility], [address], [address], [place], [address], 11/24/2024 18:36:57 iron + TIBC + ferritin, serum 2024 025 [facility], [address], [address], [place], [address], 11/24/2024 18:36:55 vitamin D, 25-hydrox y, total, serum 2024 025 [facility], [address], [address], [place], [address], 11/24/2024 18:36:59 vitamin E, serum 2024 025 [facility], [address], [address], [place], [address], 11/24/2024 18:36:57 vitamin A (retinol) , serum 2024 025 [facility], [address], [address], [place], [address], 11/24/2024 18:36:59 TSH + free T4, serum 2024 025 [facility], [address], [address], [place], [address], 11/24/2024 18:36:55 Referral None recorded. Procedures None recorded. Surgeries esophagog astroduod enoscopy (SURG) 2024 025 earl Rubi MD, [address] [place] [address], [address], [place], [address], 12/15/2024 11:34:18 Imaging None recorded. Medication Orders thiamine HCl (vitamin B1) 100 mg/mL injection solution 2024 025 [email or web address] Not available 12/27/2024 09:50:37 cyanocoba yves (vit B-12) 1,000 mcg/mL injection solution 2024 025 [email or web address] Not available 12/27/2024 09:50:09 Compazine 5 mg tablet 2024 025 [facility], [address] [place], [address], 12/01/2024 10:20:25 ondansetr on 8 mg disintegr ating tablet 2024 025 [facility], [address] [place], [address], 11/17/2024 09:24:21 Patient TargetsNo targets recorded. Patient InstructionsNo instructions recorded. Reason for Referral None Reported. Results Created Date Observation Date Name Description Value Unit Range Abnormal Flag Note LastModifiedBy Organization Detail LastModifiedTime 11/18/1911/18/2024 FE+TI BC+FE R iron bind.cap.(TI BC) 310 ug/dL 250-45 0 normal Not Available [facility] ([facility]) [address] [place], [address], 11/24/2024 18:36:54 11/18/1911/18/2024 FE+TI BC+FE R UIBC 230 ug/dL 131-42 5 normal Not Available [facility] ([facility]) [address] [place], [address], 11/24/2024 18:36:54 11/18/1911/18/2024 FE+TI BC+FE R iron 80 ug/dL 27-159 normal Not Available [facility] ([facility]) [address] [place], [address], 11/24/2024 18:36:54 11/18/1911/18/2024 FE+TI BC+FE R iron saturation 26 % 15-55 normal Not Available [facility] ([facility]) [address] [place], [address], 11/24/2024 18:36:54 11/18/1911/18/2024 FE+TI BC+FE R ferritin 482 NG/mL 15-150 above high normal Not Available [facility] ([facility]) [address] [place], [address], 11/24/2024 18:36:54 11/18/1911/18/2024 TSH+F REE T4 TSH 2.210 uIU/m L 0.450- 4.500 normal Not Available [facility] ([facility]) [address] [place], [address], 11/24/2024 18:36:55 11/18/19 25 11/18/2024 TSH+F REE T4 T4,free(dire ct) 1.44 NG/dL 0.82-1 .77 normal Not Available [facility] ([facility]) [address] [place], [address], 11/24/2024 18:36:55 11/18/19 25 11/18/2024 CBC WITH DIFFE RENTI AL/PL ATELE T WBC 5.0 x10e3 /uL 3.4-10 .8 normal Not Available [facility] ([facility]) [address] [place], [address], 11/24/2024 18:36:56 11/18/1911/18/2024 CBC WITH DIFFE RENTI AL/PL ATELE T RBC 5.41 x10e6 /uL 3.77-5 .28 above high normal Not Available [facility] ([facility]) [address] [place], [address], 11/24/2024 18:36:56 11/18/19 25 11/18/2024 CBC WITH DIFFE RENTI AL/PL ATELE T hemoglobin 15.3 g/dL 11.1-1 5.9 normal Not Available [facility] ([facility]) [address] [place], [address], 11/24/2024 18:36:56 11/18/1911/18/2024 CBC WITH DIFFE RENTI AL/PL ATELE T hematocrit 45.0 % 34.0-4 6.6 normal Not Available [facility] ([facility]) [address] [place], [address], 11/24/2024 18:36:56 11/18/19 25 11/18/2024 CBC WITH DIFFE RENTI AL/PL ATELE T MCV 83 fL 79-97 normal Not Available [facility] ([facility]) [address] [place], [address], 11/24/2024 18:36:56 11/18/19 25 11/18/2024 CBC WITH DIFFE RENTI AL/PL ATELE T MCH 28.3 pg 26.6-3 3.0 normal Not Available [facility] ([facility]) [address] [place], [address], 11/24/2024 18:36:56 11/18/19 25 11/18/2024 CBC WITH DIFFE RENTI AL/PL ATELE T MCHC 34.0 g/dL 31.5-3 5.7 normal Not Available [facility] ([facility]) [address] [place], [address], 11/24/2024 18:36:56 11/18/19 25 11/18/2024 CBC WITH DIFFE RENTI AL/PL ATELE T RDW 15.0 % 11.7-1 5.4 Not Available [facility] ([facility]) [address] [place], [address], 11/24/2024 18:36:56 11/18/19 25 11/18/2024 CBC WITH DIFFE RENTI AL/PL ATELE T platelets 168 x10e3 /uL 150-45 0 normal Not Available [facility] ([facility]) [address] [place], [address], 11/24/2024 18:36:56 11/18/19 25 11/18/2024 CBC WITH DIFFE RENTI AL/PL ATELE T neutrophils 58 % not estab. normal Not Available [facility] ([facility]) [address] [place], [address], 11/24/2024 18:36:56 11/18/19 25 11/18/2024 CBC WITH DIFFE RENTI AL/PL ATELE T lymphs 32 % not estab. normal Not Available [facility] ([facility]) [address] [place], [address], 11/24/2024 18:36:56 11/18/19 25 11/18/2024 CBC WITH DIFFE RENTI AL/PL ATELE T monocytes 9 % not estab. normal Not Available [facility] ([facility]) [address] [place], [address], 11/24/2024 18:36:56 11/18/19 25 11/18/2024 CBC WITH DIFFE RENTI AL/PL ATELE T eos 1 % not estab. normal Not Available [facility] ([facility]) [address] [place], [address], 11/24/2024 18:36:56 11/18/19 25 11/18/2024 CBC WITH DIFFE RENTI AL/PL ATELE T basos 0 % not estab. normal Not Available [facility] ([facility]) [address] [facility], [place], [address], 11/24/2024 18:36:56 11/18/19 25 11/18/2024 CBC WITH DIFFE RENTI AL/PL ATELE T immature cells PHARMACY ACCOUNT DIRECTOR Not Available [facility] ([facility]) [address] [place], [address], 11/24/2024 18:36:56 11/18/19 25 11/18/2024 CBC WITH DIFFE RENTI AL/PL ATELE T neutrophils (absolute) 2.9 x10e3 /uL 1.4-7. 0 normal Not Available [facility] ([facility]) [address] [place], [address], 11/24/2024 18:36:56 11/18/19 25 11/18/2024 CBC WITH DIFFE RENTI AL/PL ATELE T lymphs (absolute) 1.6 x10e3 /uL 0.7-3. 1 normal Not Available [facility] ([facility]) [address] [place], [address], 11/24/2024 18:36:56 11/18/19 25 11/18/2024 CBC WITH DIFFE RENTI AL/PL ATELE T monocytes(ab solute) 0.5 x10e3 /uL 0.1-0. 9 normal Not Available [facility] ([facility]) [address] [place], [address], 11/24/2024 18:36:56 11/18/19 25 11/18/2024 CBC WITH DIFFE RENTI AL/PL ATELE T eos (absolute) 0.0 x10e3 /uL 0.0-0. 4 normal Not Available [facility] ([facility]) [address] [facility], [place], [address], 11/24/2024 18:36:56 11/18/19 25 11/18/2024 CBC WITH DIFFE RENTI AL/PL ATELE T baso (absolute) 0.0 x10e3 /uL 0.0-0. 2 normal Not Available [facility] ([facility]) [address] [place], [address], 11/24/2024 18:36:56 11/18/19 25 11/18/2024 CBC WITH DIFFE RENTI AL/PL ATELE T immature granulocytes 0 % not estab. Not Available [facility] ([facility]) [address] [place], [address], 11/24/2024 18:36:56 11/18/19 25 11/18/2024 CBC WITH DIFFE RENTI AL/PL ATELE T immature grans (abs) 0.0 x10e3 /uL 0.0-0. 1 Not Available [facility] ([facility]) [address] [place], [address], 11/24/2024 18:36:56 11/18/19 25 11/18/2024 CBC WITH DIFFE RENTI AL/PL ATELE T NRBC PHARMACY ACCOUNT DIRECTOR Not Available [facility] ([facility]) [address] [place], [address], 11/24/2024 18:36:56 11/18/19 25 11/18/2024 CBC WITH DIFFE RENTI AL/PL ATELE T hematology comments: PHARMACY ACCOUNT DIRECTOR Not Available [facility] ([facility]) [address] [place], [address], 11/24/2024 18:36:56 11/18/19 25 11/18/2024 COMP. METAB OLIC PANEL (14) glucose 106 mg/dL 70-99 above high normal Not Available [facility] ([facility]) [address] [place], [address], 11/24/2024 18:36:57 11/18/19 25 11/18/2024 COMP. METAB OLIC PANEL (14) BUN 6 mg/dL 6-20 normal Not Available [facility] ([facility]) [address] [facility], [place], [address], 11/24/2024 18:36:57 11/18/19 25 11/18/2024 COMP. METAB OLIC PANEL (14) creatinine 0.56 mg/dL 0.57-1 .00 below low normal Not Available [facility] ([facility]) [address] [place], [address], 11/24/2024 18:36:57 11/18/19 25 11/18/2024 COMP. METAB OLIC PANEL (14) eGFR 129 mL/mi n/1.7 3 >59 normal Not Available [facility] ([facility]) [address] [place], [address], 11/24/2024 18:36:57 11/18/19 25 11/18/2024 COMP. METAB OLIC PANEL (14) BUN/creatini ne ratio 11 9-23 normal Not Available [facility] ([facility]) [address] [place], [address], 11/24/2024 18:36:57 11/18/19 25 11/18/2024 COMP. METAB OLIC PANEL (14) sodium 135 mmol/ L 134-14 4 normal Not Available [facility] ([facility]) [address] [place], [address], 11/24/2024 18:36:57 11/18/19 25 11/18/2024 COMP. METAB OLIC PANEL (14) potassium 3.7 mmol/ L 3.5-5. 2 normal Not Available [facility] ([facility]) [address] [place], [address], 11/24/2024 18:36:57 11/18/19 25 11/18/2024 COMP. METAB OLIC PANEL (14) chloride 98 mmol/ L 96-106 normal Not Available [facility] ([facility]) [address] [place], [address], 11/24/2024 18:36:57 11/18/19 25 11/18/2024 COMP. METAB OLIC PANEL (14) carbon dioxide, total 18 mmol/ L 20-29 below low normal Not Available [facility] ([facility]) [address] [place], [address], 11/24/2024 18:36:57 11/18/19 25 11/18/2024 COMP. METAB OLIC PANEL (14) calcium 9.6 mg/dL 8.7-10 .2 normal Not Available [facility] ([facility]) [address] [place], [address], 11/24/2024 18:36:57 11/18/19 25 11/18/2024 COMP. METAB OLIC PANEL (14) protein, total 7.1 g/dL 6.0-8. 5 normal Not Available [facility] ([facility]) [address] [facility] [place], [address], 11/24/2024 18:36:57 11/18/19 25 11/18/2024 COMP. METAB OLIC PANEL (14) albumin 4.3 g/dL 4.0-5. 0 normal Not Available [facility] ([facility]) [address] [facility] [place], [address], 11/24/2024 18:36:57 11/18/19 25 11/18/2024 COMP. METAB OLIC PANEL (14) globulin, total 2.8 g/dL 1.5-4. 5 Not Available [facility] ([facility]) [address] [facility] [place], [address], 11/24/2024 18:36:57 11/18/19 25 11/18/2024 COMP. METAB OLIC PANEL (14) bilirubin, total 0.8 mg/dL 0.0-1. 2 normal Not Available [facility] ([facility]) [address] [facility] [place], [address], 11/24/2024 18:36:57 11/18/19 25 11/18/2024 COMP. METAB OLIC PANEL (14) alkaline phosphatase 91 IU/L 44-121 normal Not Available [facility] ([facility]) [address] [facility], [place], [address], 11/24/2024 18:36:57 11/18/19 25 11/18/2024 COMP. METAB OLIC PANEL (14) AST (SGOT) 40 IU/L 0-40 normal Not Available [facility] ([facility]) [address] [facility] [place], [address], 11/24/2024 18:36:57 11/18/19 25 11/18/2024 COMP. METAB OLIC PANEL (14) ALT (SGPT) 48 IU/L 0-32 above high normal Not Available [facility] ([facility]) [address] [facility] [place], [address], 11/24/2024 18:36:57 11/18/19 25 11/24/2024 VITAM IN E vitamin E(alpha tocopherol) 5.6 mg/L 5.9-19 .4 below low normal Not Available [facility] ([facility]) [address] [place], [address], 11/24/2024 18:36:57 11/18/19 25 11/24/2024 VITAM IN [...] E defic ient. Not Available [facility] ([facility]) [address] [facility], [place], [address], 11/24/2024 18:36:57 11/18/19 25 11/18/2024 FOLAT E (FOLI C ACID) , SERUM folate (folic acid), serum 6.5 NG/mL >3.0 normal A serum folat e matt ntrat ion of less than 3.1 ng/mL is consi dered to repre sent clini abby defic iency . Not Available [facility] ([facility]) [address] [facility], [place], [address], 11/24/2024 18:36:58 11/18/19 25 11/24/2024 VITAM IN [...] Admin istra tion. Not Available [facility] ([facility]) [address] [facility], [place], [address], 11/24/2024 18:36:58 11/18/19 25 11/18/2024 VITAM IN [...] um and D. Lucretia pleitez [place]: [facility] . 2. Reinaldo moreno MF, Eileen mccann [place], David off-F errar i LILLY, et al. Evalu ation , treat ment, and preve ntion of vitam in D defic iency : an Endoc rine Socie ty clini abby pract ice guide line. JCEM. 2010; 96(7) :1911 -30. Not Available [facility] ([facility]) [address] [place], [address], 11/24/2024 18:36:59 11/18/19 25 11/23/2024 VITAM IN B1 (THIA MINE) , BLOOD vit. B1, whole blood 82.0 nmol/ L 66.5-2 00.0 Not Available [facility] ([facility]) [address] [place], [address], 11/24/2024 18:37:00 11/18/19 25 11/22/2024 METHY LMALO JAREK ACID, SERUM methylmaloni c acid, serum 60 nmol/ L 0-378 Not Available [facility] ([facility]) [address] [place], [address], 11/24/2024 18:37:00 11/18/19 25 11/18/2024 PREAL BUMIN prealbumin 15 mg/dL 14-35 Not Available [facility] ([facility]) [address] [place], [address], 11/24/2024 18:37:01 12/02/19 25 12/02/2024 CBC WITH DIFFE RENTI AL/PL ATELE T WBC 8.4 x10e3 /uL 3.4-10 .8 normal Not Available [facility] ([facility]) [address] [place], [address], 12/02/2024 03:38:32 12/02/19 25 12/02/2024 CBC WITH DIFFE RENTI AL/PL ATELE T RBC 4.94 x10e6 /uL 3.77-5 .28 normal Not Available [facility] ([facility]) [address] [place], [address], 12/02/2024 03:38:32 12/02/19 25 12/02/2024 CBC WITH DIFFE RENTI AL/PL ATELE T hemoglobin 14.3 g/dL 11.1-1 5.9 normal Not Available [facility] ([facility]) [address] [place], [address], 12/02/2024 03:38:32 12/02/19 25 12/02/2024 CBC WITH DIFFE RENTI AL/PL ATELE T hematocrit 41.7 % 34.0-4 6.6 normal Not Available [facility] ([facility]) [address] [place], [address], 12/02/2024 03:38:32 12/02/19 25 12/02/2024 CBC WITH DIFFE RENTI AL/PL ATELE T MCV 84 fL 79-97 normal Not Available [facility] ([facility]) [address] [place], [address], 12/02/2024 03:38:32 12/02/19 25 12/02/2024 CBC WITH DIFFE RENTI AL/PL ATELE T MCH 28.9 pg 26.6-3 3.0 normal Not Available [facility] ([facility]) [address] [facility], [place], [address], 12/02/2024 03:38:32 12/02/19 25 12/02/2024 CBC WITH DIFFE RENTI AL/PL ATELE T MCHC 34.3 g/dL 31.5-3 5.7 normal Not Available [facility] ([facility]) [address] [facility], [place], [address], 12/02/2024 03:38:32 12/02/19 25 12/02/2024 CBC WITH DIFFE RENTI AL/PL ATELE T RDW 14.5 % 11.7-1 5.4 Not Available [facility] ([facility]) [address] [facility], [place], [address], 12/02/2024 03:38:32 12/02/19 25 12/02/2024 CBC WITH DIFFE RENTI AL/PL ATELE T platelets 171 x10e3 /uL 150-45 0 normal Not Available [facility] ([facility]) [address] [facility], [place], [address], 12/02/2024 03:38:32 12/02/19 25 12/02/2024 CBC WITH DIFFE RENTI AL/PL ATELE T neutrophils 72 % not estab. normal Not Available [facility] ([facility]) [address] [facility], [place], [address], 12/02/2024 03:38:32 12/02/19 25 12/02/2024 CBC WITH DIFFE RENTI AL/PL ATELE T lymphs 21 % not estab. normal Not Available [facility] ([facility]) [address] [facility], [place], [address], 12/02/2024 03:38:32 12/02/19 25 12/02/2024 CBC WITH DIFFE RENTI AL/PL ATELE T monocytes 6 % not estab. normal Not Available [facility] ([facility]) [address] [place], [address], 12/02/2024 03:38:32 12/02/19 25 12/02/2024 CBC WITH DIFFE RENTI AL/PL ATELE T eos 1 % not estab. normal Not Available [facility] ([facility]) [address] [facility], [place], [address], 12/02/2024 03:38:32 12/02/19 25 12/02/2024 CBC WITH DIFFE RENTI AL/PL ATELE T basos 0 % not estab. normal Not Available [facility] ([facility]) [address] [facility], [place], [address], 12/02/2024 03:38:32 12/02/19 25 12/02/2024 CBC WITH DIFFE RENTI AL/PL ATELE T immature cells PHARMACY ACCOUNT DIRECTOR Not Available [facility] ([facility]) [address] [place], [address], 12/02/2024 03:38:32 12/02/19 25 12/02/2024 CBC WITH DIFFE RENTI AL/PL ATELE T neutrophils (absolute) 6.0 x10e3 /uL 1.4-7. 0 normal Not Available [facility] ([facility]) [address] [place], [address], 12/02/2024 03:38:32 12/02/19 25 12/02/2024 CBC WITH DIFFE RENTI AL/PL ATELE T lymphs (absolute) 1.8 x10e3 /uL 0.7-3. 1 normal Not Available [facility] ([facility]) [address] [place], [address], 12/02/2024 03:38:32 12/02/19 25 12/02/2024 CBC WITH DIFFE RENTI AL/PL ATELE T monocytes(ab solute) 0.5 x10e3 /uL 0.1-0. 9 normal Not Available [facility] ([facility]) [address] [facility], [place], [address], 12/02/2024 03:38:32 12/02/19 25 12/02/2024 CBC WITH DIFFE RENTI AL/PL ATELE T eos (absolute) 0.1 x10e3 /uL 0.0-0. 4 normal Not Available [facility] ([facility]) [address] [facility], [place], [address], 12/02/2024 03:38:32 12/02/19 25 12/02/2024 CBC WITH DIFFE RENTI AL/PL ATELE T baso (absolute) 0.0 x10e3 /uL 0.0-0. 2 normal Not Available [facility] ([facility]) [address] [facility], [place], [address], 12/02/2024 03:38:32 12/02/19 25 12/02/2024 CBC WITH DIFFE RENTI AL/PL ATELE T immature granulocytes 0 % not estab. Not Available [facility] ([facility]) [address] [facility], [place], [address], 12/02/2024 03:38:32 12/02/19 25 12/02/2024 CBC WITH DIFFE RENTI AL/PL ATELE T immature grans (abs) 0.0 x10e3 /uL 0.0-0. 1 Not Available [facility] ([facility]) [address] [facility], [place], [address], 12/02/2024 03:38:32 12/02/19 25 12/02/2024 CBC WITH DIFFE RENTI AL/PL ATELE T NRBC PHARMACY ACCOUNT DIRECTOR Not Available [facility] ([facility]) [address] [facility], [place], [address], 12/02/2024 03:38:32 12/02/19 25 12/02/2024 CBC WITH DIFFE RENTI AL/PL ATELE T hematology comments: PHARMACY ACCOUNT DIRECTOR Not Available [facility] ([facility]) [address] [facility] [place], [address], 12/02/2024 03:38:32 12/02/19 25 12/02/2024 COMP. METAB OLIC PANEL (14) glucose 96 mg/dL 70-99 normal Not Available [facility] ([facility]) [address] [facility] [place], [address], 12/02/2024 03:38:33 12/02/19 25 12/02/2024 COMP. METAB OLIC PANEL (14) BUN 5 mg/dL 6-20 below low normal Not Available [facility] ([facility]) [address] [facility] [place], [address], 12/02/2024 03:38:33 12/02/19 25 12/02/2024 COMP. METAB OLIC PANEL (14) creatinine 0.53 mg/dL 0.57-1 .00 below low normal Not Available [facility] ([facility]) [address] [facility] [place], [address], 12/02/2024 03:38:33 12/02/19 25 12/02/2024 COMP. METAB OLIC PANEL (14) eGFR 131 mL/mi n/1.7 3 >59 normal Not Available [facility] ([facility]) [address] [place], [address], 12/02/2024 03:38:33 12/02/19 25 12/02/2024 COMP. METAB OLIC PANEL (14) BUN/creatini ne ratio 9 9-23 normal Not Available [facility] ([facility]) [address] [place], [address], 12/02/2024 03:38:33 12/02/19 25 12/02/2024 COMP. METAB OLIC PANEL (14) sodium 136 mmol/ L 134-14 4 normal Not Available [facility] ([facility]) [address] [facility] [place], [address], 12/02/2024 03:38:33 12/02/19 25 12/02/2024 COMP. METAB OLIC PANEL (14) potassium 4.5 mmol/ L 3.5-5. 2 normal Not Available [facility] ([facility]) [address] [place], [address], 12/02/2024 03:38:33 12/02/19 25 12/02/2024 COMP. METAB OLIC PANEL (14) chloride 101 mmol/ L 96-106 normal Not Available [facility] ([facility]) [address] [place], [address], 12/02/2024 03:38:33 12/02/19 25 12/02/2024 COMP. METAB OLIC PANEL (14) carbon dioxide, total 20 mmol/ L 20-29 normal Not Available [facility] ([facility]) [address] [place], [address], 12/02/2024 03:38:33 12/02/19 25 12/02/2024 COMP. METAB OLIC PANEL (14) calcium 9.5 mg/dL 8.7-10 .2 normal Not Available [facility] ([facility]) [address] [facility] [place], [address], 12/02/2024 03:38:33 12/02/19 25 12/02/2024 COMP. METAB OLIC PANEL (14) protein, total 6.6 g/dL 6.0-8. 5 normal Not Available [facility] ([facility]) [address] [facility] [place], [address], 12/02/2024 03:38:33 12/02/19 25 12/02/2024 COMP. METAB OLIC PANEL (14) albumin 4.1 g/dL 4.0-5. 0 normal Not Available [facility] ([facility]) [address] [facility] [place], [address], 12/02/2024 03:38:33 12/02/19 25 12/02/2024 COMP. METAB OLIC PANEL (14) globulin, total 2.5 g/dL 1.5-4. 5 Not Available [facility] ([facility]) [address] [place], [address], 12/02/2024 03:38:33 12/02/19 25 12/02/2024 COMP. METAB OLIC PANEL (14) bilirubin, total 1.6 mg/dL 0.0-1. 2 above high normal Not Available [facility] ([facility]) [address] [place], [address], 12/02/2024 03:38:33 12/02/19 25 12/02/2024 COMP. METAB OLIC PANEL (14) alkaline phosphatase 83 IU/L 44-121 normal Not Available [facility] ([facility]) [address] [place], [address], 12/02/2024 03:38:33 12/02/19 25 12/02/2024 COMP. METAB OLIC PANEL (14) AST (SGOT) 46 IU/L 0-40 above high normal Not Available [facility] ([facility]) [address] [place], [address], 12/02/2024 03:38:33 12/02/19 25 12/02/2024 COMP. METAB OLIC PANEL (14) ALT (SGPT) 59 IU/L 0-32 above high normal Not Available [facility] ([facility]) [address] [place], [address], 12/02/2024 03:38:33 11/11/19 25 11/10/2024 RF, upper gastr ointe yadira l tract , w/ air, w/ contr ast PO No observ ation record ed. [facility] [address], [place], [address], 11/14/2024 15:11:14 11/11/19 25 11/10/2024 RF, upper gastr ointe yadira l tract , w/ air, w/ contr ast PO No observ ation record ed. [facility] (Scheduling) [address], [place], [address], 11/14/2024 15:11:15 11/11/19 25 11/10/2024 RF, upper gastr ointe yadira l tract , w/ air, w/ contr ast PO No observ ation record ed. [email or web address] [facility] (Scheduling) [address], [place], [address], 11/10/2024 14:58:54 Result Notes None recorded. Problems Name Problem SNOMED Code Status Onset Date Resolution Date Notes Provider Name and Address Organization Details Recorded Time Essential hypertensi on 07812052 Active [address], [place], [address] , [place] - [facility] & [place] 4 12:30:28 Obesity 183718226 Active [address], [place], [address] , [place] [facility] [facility] & [place] 4 12:30:50 Disorder of function of stomach 305837232 Active [address], [place], [address] , [place] [facility] [facility] & [place] 4 12:30:50 Impaired glucose tolerance 7255218 Active [address], [place], [address] , [place] [facility] [facility] & [place] 4 12:31:02 Postoperat nicholas pain 448824599 Active [address], [place], [address] , [place] 5 08:04:37 Contact dermatitis 46567644 Active [address] , [place], [address] , [place] 5 10:32:01 Nausea 250076277 Active [address], [place], [address] , [place] [facility] & [place] 5 09:06:20 Nausea and vomiting 67809853 Active [address], [place], [address] , [place] 5 10:19:41 Bilious vomiting 83588787 Active [address] [place], [address] , [place] [facility] & [place] 5 09:06:37 Mild dehydratio n 7268634636396 Active [address] [place], [address] , [place] 5 09:09:44 Intentiona l weight loss 479358164 Active [address] [place], [address] , [place] [facility] & [place] 5 09:06:38 Body mass index 40+ - severely obese 493558567 Active [address] [place], [address] , [place] [facility] & [place] 5 09:07:05 Severe obesity 8175106409727 4 Active [address] [place], [address] , [place] [facility] [facility] & [place] 5 09:07:24 Nutritiona l deficiency state 67202522 Active [address], [place], [address] , [place] [facility] & [place] 5 10:04:26 Epigastric pain 11565591 Active [address], [place], [address] , [place] [facility] & [place] 5 10:16:35 Gestation period, 13 weeks 50815715 Active [address], [place], [address] , [place] [facility] & [place] 5 10:26:24 Paresthesi a of upper limb 62084316 Active [address], [place], [address] , [place] [facility] [facility] & [place] 4 15:38:11 Problem Notes None recorded. Procedures Surgical History Date Name Laterality Status Provider Name and Address Organization Details Recorded Time 10/16/19 25 procedure on duodenum completed Parris Torres CT - [facility] & [place] 11/09/2024 08:47:34 12/09/19 24 EMG/ Nerve Conduction Study completed DO [address], [place], [address], [place] [facility] & [place] 12/09/2023 15:38:04 [address] completed [address], [place], [address], [place] [facility] [facility] & [place] 07/04/2024 12:57:53 extraction of wisdom tooth completed Parris GUTHRIE - [facility] & [place] 07/03/2024 15:07:44 Tonsillectomy completed Parris GUTHRIE - [facility] & [place] 07/03/2024 15:07:52 procedure on ganglion cyst completed Stephanie Castro [place] - [facility] [place] 10/04/2024 07:53:08 Imaging Results [...] Updated DateTime 5 170.18 cm 42.1 kg/m2 873331. 55 g 126 /min 97.7 [degF] 151/103 mm[Hg] Jessica GUTHRIE - [facility] & [place] 5 09:02:32 Date Recorded Body height Body temperature Heart rate Body mass index (BMI) Body weight Systolic And Diastolic Provider Name and Address Organization Details Last Updated DateTime 5 170.18 cm 97.3 [degF] 96 /min 41.5 kg/m2 328001. 98 g 120/84 mm[Hg] Lorne [email or web address] [facility] & [place] 5 09:49:02 Date Recorded Body height Body temperature Heart rate Body mass index (BMI) Body weight Systolic And Diastolic Provider Name and Address Organization Details Last Updated DateTime 5 170.18 cm 97.1 [degF] 91 /min 40.5 kg/m2 455495. 35 g 141/100 mm[Hg] Stephanie Castro [facility] & [place] 5 09:49:04 Social History Question Answer Notes LastModified by [employer] Details LastModified Time Tobacco Smoking Status Never Smoker Parris Torres [facility], [facility] & [place] 07/03/2024 15:12:10 What Is Your Level Of Caffeine Consumption? Occasional [email or web address] Information not available 07/04/2024 Sex: Female Functional Status Question Answer Note LastModified by [employer] Details LastModified Time Do you use any illicit or recreational drugs? No [email or web address] Information not available 07/03/2024 What is your level of alcohol consumption? Occasional [email or web address] Information not available 07/03/2024 Mental Status None recorded. Family History Relationship Description Onset Age of this Age Resolved Age Notes LastModified by Organization Details LastModified Time Father Hypertensive disorder Not available 06/2024 15:12:25 Father Hypercholest erolemia [email or web address] Not available 06/2024 15:12:51 Mother Hypertensive disorder [email or web address] Not available 06/2024 15:12:25 Mother Hypercholest erolemia [email or web address] Not available 06/2024 15:12:51 Mother Asthma [email or web address] Not availabl e 07/04/2024 13:49:15 Mother Chronic obstructive pulmonary disease [email or web address] Not available 06/2024 15:13:21 Maternal Grandmother Hypertensive disorder [email or web address] Not available 06/2024 15:12:25 Maternal Grandmother Chronic obstructive pulmonary disease [email or web address] Not available 06/2024 15:13:21 Maternal Grandfather Malignant neoplasm of lung Not available 06/23 13:49:15 Brother Asthma [email or web address] Not availab le 07/04/2024 13:49:15 Sister Asthma [email or web address] Not availabl e 07/04/2024 13:49:15 Medical History [...] SNOMED-CT Code Diagnosis ICD10 Code Diagnosis Note [id number] DO Thao NugentZ [facility] [address] [facility],[address] [place] [address] 12/09/2023 15:31:14 12/09/2023 16:01:57 Paresthesia of upper limb 53535664 R20.2 [id number] RON Azar [facility] [address] [facility] [address] [place] [address] 07/04/2024 11:29:18 07/04/2024 14:10:15 Obesity 017784608 E66.9 The patient will be scheduled for [...] completed Disorder o f function of stomach 109365501 K31.89 Pre-surger y evaluation 125932875 Z01.818 Obesity screening 239278 005 Z13.89 Essential hypertension 48877538 I10 Impaired g lucose tolerance 2035623 R73.[id number] [facility] [address] [facility] [address] [place] [address] 07/04/2024 13:49:08 07/04/2024 14:22:02 Dietary management surveillance 234562317 Z71.3 Completed nutrition evaluation and education with [...] to patient based on recommende d surgery. [id number] Forest Mena MD [facility] [address] [place] [address] 08/01/2024 09:01:56 08/01/2024 09:49:38 Preoperative cardiovascular examination 034100000 Z01.810 23-year-ol d female sent for preoperati ve cardiovasc ular evaluation for weight loss surgery. She is physically active asymptomat ic can do more than 6 METs with no limitation s. EKG normal sinus rhythm. She can proceed with the surgery as low risk patient for moderate risk procedure from the cardiovasc ular standpoint . Obesity 978925394 E66.9 obesity body mass index 49.8. For weight loss surgery. Recommend sleep apnea evaluation . Essential hypertension 30592036 I10 hypertensi on on hydrochlor othiazide. Recommend switching to beta mathew because she is in the childbeari ng age. Patient declined at this time. She understand s the possible side effects of hydrochlor othiazide. [id number] [address] [facility] [address] [facility] [address] [place] [address] 08/08/2024 12:37:07 08/08/2024 13:20:53 Dietary management surveillance 899879075 Z71.3 [id number] KALI RUBI MD [facility] [address] [place] [address] [address] [place] [address] 10/04/2024 07:39:52 10/04/2024 14:13:26 Morbid obesity 898585726 E66.01 Pre-surger y evaluation 495905080 Z01.818 Postoperative pain 77992 9007 G89.18 pt will continue pregabalin post operativel y Essential hypertension 06568271 I10 Impaired g lucose tolerance 2680740 R73.03 [id number] RON Azar [facility] [address] [place] [address] [address] [place] [address] 10/24/2024 07:55:40 10/24/2024 10:33:45 History of gastrectomy 185407217 Z90.3 Encouraged patient to continue focus on intake of adequate protein and hydration. Advised minimum 70 g of protein and 800 calories. Patient is to continue incentive spirometer for another 5-7 days Encouraged ambulation Patient is to start bariatric approved vitamin Follow up 3 weeks Contact dermatitis 49134 004 L25.9 Likely from surgical glue. Patient advised to keep area clean. She may apply Benadryl cream or calamine lotion. Advised she take Zyrtec q.a.m. and Benadryl q.p.m.. Advised she avoid scratching these areas. She is report any worsening symptoms. [id number] RON Azar [facility] [address] [place] [address] [address] [place] [address] 11/09/2024 08:34:40 11/09/2024 14:27:44 Nausea and vomiting 57910985 R11.2 Long discussion today regarding adherence to [...] UGI to further evaluate - pt request [facility].Alexander bowen is advised to call or go to the ED for any acute worsening of abdominal symptoms.Alexander bowen is to keep scheduled follow-up 11/17/2024 Mild dehydration 4550484 119 108 E86.0 Patient will have to a L normal saline IV rehydratio n today in office. History of gastrectomy 281646905 Z90.3 s/p TORI-s 10/16/24 [id number] RON Azar [facility] [address] [place] [address] 11/17/2024 08:51:00 11/17/2024 09:41:49 Disorder of function of stomach 192173100 K31.89 Long discussion with patient regarding fatigue [...] call for any worsening symptoms Essential hypertension 26378199 I10 Stop monitor and discussed with PCP Impaired g lucose tolerance 3870935 R73.03 History of gastrectomy 001258129 Z90.3 We discussed diet and the importance [...] any vitamin deficienci es. At [facility] risk of nutritional deficit 936282799 Z91.89 Severe obesity 790942935 1 [address]104 E66.813 E66.01 Z68.[id number] [facility] [address] [place], [place] [address] 11/17/2024 09:37:00 11/17/2024 10:29:59 Diet education 22530351 Z71.3 [id number] RON Azar [facility] [address] [place], [place] [address] 12/01/2024 09:40:04 12/01/2024 10:22:02 Nausea and vomiting 34873994 R11.2 Long discussion with patient regarding fatigue [...] has been resulted Nutritiona l deficiency state 61088945 E63.9 Encouraged patient see focus on p.o. intake. Advised she continue small frequent sips of protein drinks. History of gastrectomy 494054560 Z90.3 s/p Tori-s 10/16/24 with continued struggles including nausea vomiting p.o. intake.Carmen thorne had upper GIPatient will be scheduled for upper endoscopy for further evaluation Epigastric pain 11234148 R10.13 Advised patient to continue omeprazole . [...] atient is advised to go to this [place] ED for any acute worsening symptoms [id number] [address] [facility] S[facility] [address] [place] [address] 12/27/2024 09:45:05 12/27/2024 11:07:46 Diet education 96742684 Z71.3 [id number] RON Azar [facility] [address] [place] [address] 12/27/2024 09:47:12 12/27/2024 12:24:19 Gestation period, 13 weeks 51644733 Z3A.[address] Guillen today.Advi sed to continue vitamins. Next labs due January 2025Pt has appt with inner tube inserter today to discuss caloric need. Advise minimal 8012-9940 calories daily and 90 g proteinPt has [employer] appt today in [place] to establish carePt given copy of recent labs to share with OB History of gastrectomy 291583717 Z90.3 s/p Tori-s 10/16/24Fol lowup with labs January 2025 Health Concerns Section Related Observation LastModified by Organization Detai ls LastModified Time None Recorded Concern Status LastModified by Organization Details LastModified Time None Recorded Advance Directives Directive None Recorded Payers Insurance Date Sequence Insurance Name Policy Number Policy Sanchez Covered Member ID Sanchez Member ID Guarantor Name 06/21/2024 1 [facility] Penelope Christina [id number] Penelope Christina 11/06/2024 [facility] (MED[place]AC[place] - [place]) [id number] Penelope Christina [id number] Penelope Christina 06/21/2024 2 [facility] [id number] 1 Penelope Christina [id number] Penelope Christina 08/01/2024 1 [facility] Penelope Christina [id number] Penelope Christina 12/24/2024 1 [facility] MARY Christina [id number] Penelope Christina Notes Date Note Type Note [...] to return to work. 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
--- NOTE | 2025-01-16 14:15 | US_ITS ---
PROCEDURE: US OB FOLLOW UP CLINICAL INDICATION: 3 weeks, growth; hematoma; cervical length COMPARISON: US US OB <= 14 WEEKS FETUS from 12/14/2024 US US OB <= 14 WEEKS FETUS from 12/28/2024 US from 12/31/2024 US US OB TRANSVAGINAL from 01/16/2025 FINDINGS: Transabdominal sonographic images of the pelvis were obtained. The following parameters are obtained: From her established due date she is 16weeks 1day Viable fetus in the cephalic presentation with a posterior placenta grade 1. A placental Molina is seen The the cervical measurements are seen in a separate ultrasound done earlier today. There appears to be a small separation of the amnion which is likely a resolving hematoma seen earlier in the . heart rate: 160bpm bpm. Average ultrasound age 16 weeks 2 days BPD: 16weeks 3days HC: 16weeks 1day AC: 16weeks 3days FL: 15weeks 6days HC/AC: 1.17 FL/BPD: 0.58 FL/AC: 0.19 Growth percentile: 36 Amniotic fluid: Subjectively appears normal No obvious anomalies evident. profile seen, stomach, bladder, kidneys, three-vessel cord, appear normal. IMPRESSION: 1. Viable fetus in the cephalic presentation with a posterior placenta grade 1. 2. From previous transvaginal ultrasound today the posterior placenta tip just covers the internal cervical os. 3. Subjectively the fluid appears within normal limits. 4. There has been good interval growth with the fetus currently 36 percentile. 5. There is a small resolving subchorionic hematoma. 6. Limited anatomical scan appears normal. Dictated by: Gerber Mcgrath MD 01/17/2025 07:13 Gerber Mcgrath MD in [place] 01/17/2025 07:13
--- NOTE | 2025-01-16 14:20 | US_ITS ---
PROCEDURE: US OB TRANSVAGINAL CLINICAL INDICATION: Cervical Check COMPARISON: US US OB <= 14 WEEKS FETUS from 12/14/2024 US US OB <= 14 WEEKS FETUS from 12/28/2024 FINDINGS: Transvaginal sonographic images of the cervix were obtained. The cervix measures 4.55 cm-4.73 cm The tip of the posterior placenta just covers the internal os. IMPRESSION: 1. The cervix is measured transvaginally and measures 4.55 cm-4.73 cm. 2. The placenta is posterior and just covers the internal os. 3. Suggest including a transvaginal ultrasound at the time of her anatomy scan. Dictated by: Gerber Mcgrath MD 01/17/2025 07:06 Gerber Mcgrath MD in [facility] 01/17/2025 07:06
== END 2025-01-16 23:59 | disposition home or self-care (01) ==
LOC: RAD 13:53
PROVIDERS: PCP Nurse Practitioner Family; Visit Provider Obstetrics & Gynecology
DX: O41.8X10 Other specified disorders of amniotic fluid and membranes, first trimester, not applicable or unspecified (principal); O09.291 Supervision of pregnancy with other poor reproductive or obstetric history, first trimester; O99.841 Bariatric surgery status complicating pregnancy, first trimester; O20.9 Hemorrhage in early pregnancy, unspecified; Z36.86 Encounter for antenatal screening for cervical length; Z3A.01 Less than 8 weeks gestation of pregnancy
CPT/HCPCS: 76816; 76817

== ENCOUNTER 2025-02-14 08:48 | Outpatient (CLI) | payer OTHER, SELFPAY ==
--- OUTSIDE RECORDS SUMMARY | 2017-04-29 08:24 | XMS_ITS | Continuity of Care Document ---
Author Organization [facility] Address [address] [place] [address] Phone Care Team Providers Care Evidence Technician Name Role Phone Bijan Jang DO Unavailable Unavailable Advance Directives Directive Yes / No Effective Date File Name No Information Encounters Encounter Description Practice Location Reason(s) For Visit Diagnoses Date Provider Providers Copied on Encounter [facility], [address], [place], [place], [id number], [place] tel:[phone] [address] [place] [address] No Information 7 Suhail Livingston. [address], [place], [address], [place]. tel:[phone] Family History Family Member Type Diagnosis Age At Onset No Information Immunizations Vaccine Date Status Comments Tdap (Adacel) administered Note: Tdap gi usha by [facility] ; Source: Other Registry Payers Payer name Insurance type Covered libertarian ID Authoriza tion(s) No Information Social History [...]
--- OUTSIDE RECORDS SUMMARY | 2025-02-14 08:50 | XMS_ITS | Continuity of Care Document ---
Author Organization [place] - NT [facility] Address [address] [facility] [place] [address] Care Team Providers Care Header Setup Operator Name Role Phone KARLOS CHESTER Primary Care Provider Assessment No assessment recorded. Plan of Treatment Reminders Order Date Submit Date Provider Last Modified By Organization Details Last Modified Time Details Appointments OV EST 20 2024 11:00A ANAIS Sinclair Not available Not available Not available Lab vitamin D, 25-hydro xy, total, serum 2024 025 [facility], [address], [address], [place], [address], 02/12/2025 04:16:31 copper, serum or plasma 2024 025 [facility], [address], [address], [place], [address], 02/12/2025 04:16:30 selenium , quantita tive, blood 2024 025 [facility], [address], [address], [place], [address], 02/12/2025 04:16:30 prealbum in, serum 2024 025 [facility], [address], [address], [place], [address], 02/12/2025 04:16:32 zinc, serum or plasma 2024 025 [facility], [address], [address], [place], [address], 02/12/2025 04:16:29 folate, serum 2024 025 [facility], [address], [address], [place], [address], 02/12/2025 04:16:29 thiamine , QN, blood 2024 025 [facility], [address], [address], [place], [address], 02/12/2025 04:16:29 methylma lonate, QN, serum or plasma 2024 025 [facility], [address], [address], [place], [address], 02/12/2025 04:16:29 iron + TIBC + ferritin , serum 2024 025 [facility], [address], [address], [place], [address], 02/12/2025 04:16:31 CBC w/ auto diff 2024 025 [facility], [address], [address], [place], [address], 02/12/2025 04:16:30 CMP, serum or plasma 2024 025 [facility], [address], [address], [place], [address], 02/12/2025 04:16:31 vitamin E, serum 2024 025 [facility], [address], [address], [place], [address], 02/12/2025 04:16:32 vitamin A (retinol ), serum 2024 025 [facility], [address], [address], [place], [address], 02/12/2025 04:16:32 TSH + free T4, serum 2024 025 [facility], [address], [address], [place], [address], 02/12/2025 04:16:32 Referral None recorded . Procedures None recorded . Surgeries None recorded . Imaging None recorded . Medication Orders None recorded . Patient TargetsNo targets recorded. Patient InstructionsNo instructions recorded. Reason for Referral None Reported. Problems Name Problem SNOMED Code Status Onset Date Resolution Date Notes Provider Name and Address Organization Details Recorded Time Essential hypertensi on 41732688 Active [address], [place], [address] , [place] [facility] [place] 4 12:30:28 Obesity 464357620 Active [address] , [place], [address] , [place] [facility] [place] 4 12:30:50 Disorder of function of stomach 359042951 Active [address], [place], [address] , [place] [facility] [place] 4 12:30:50 Impaired glucose tolerance 4053643 Active [address], [place], [address] , [place] [facility] [place] 4 12:31:02 Postoperat nicholas pain 746087142 Active [address] [place], [address] , [place] [facility] [place] [facility] [place] 5 08:04:37 Contact dermatitis 18894932 [facility] [place], [address] , [place] [facility] [facility] [place] 5 10:32:01 Nausea 830628682 Active 2024 [address] , [place], [address] , [place] [facility] [place] 5 09:06:20 Nausea and vomiting 06823749 Active 2024 [address] , [place], [address] , [place] [facility] [place] 5 10:19:41 Bilious vomiting 63001824 Active 20[place], [address] , [place] [facility] [place] 5 09:06:37 Mild dehydratio n 3986224239469 Active 20[place], [address] , [place] [facility] [place] 5 09:09:44 Intentiona l weight loss 321713596 Active [address], [address] , [place] [facility] [place] 5 09:06:38 Body mass index 40+ - severely obese 866131691 Active 20[place], [address] , [place] [facility] [place] 5 09:07:05 Severe obesity 0496440961652 4 Active [address] [place], [address] , [place] [facility] [place] 5 09:07:24 Nutritiona l deficiency state 31713872 Active 2024 [address], [place], [address] , [place] [facility] [place] 5 10:04:26 Epigastric pain 28726993 Active [address], [place], [address] , [place] [facility] [place] 5 10:16:35 Gestation period, 13 weeks 80257850 Active [address], [place], [address] , [place] [facility] [place] 5 10:26:24 Gestation period, 19 weeks 29370149 Active [address], [place], [address] , [place] [facility] [place] 5 13:38:05 Protein level - finding 970105683 Active 2024 ANA[address], [place], [address] , [place] [facility] [place] 5 13:39:22 Vitamin D deficiency 39181410 Active [address], [place], [address] , [place] [facility] [place] 5 13:40:16 Paresthesi a of upper limb 41372215 Active [address], [place], [address] , [place] [facility] [place] 4 15:38:11 Problem Notes None recorded. Procedures Surgical History Date Name Laterality Status Provider Name and Address Organization Details Recorded Time 10/16/19 25 procedure on duodenum completed Parris Torres [facility] & [place] 11/09/2024 08:47:34 12/09/19 24 EMG/ Nerve Conduction Study completed Raquel Guillen DO [address], [place], [address], [facility] & [place] 12/09/2023 15:38:04 Cholecystectomy completed ANAIS Azar [address], [place], [address], [facility] & [place] 07/04/2024 12:57:53 extraction of wisdom tooth completed Parris Torres [facility] & [place] 07/03/2024 15:07:44 Tonsillectomy completed Parris Torres [facility] & [place] 07/03/2024 15:07:52 procedure on ganglion cyst completed Stephanie Castro [facility] [place] 10/04/2024 07:53:08 Imaging Results None [...] TABLETS BY MOUTH A ONE TIME DOSE 02/05 completed Not Available Not Available Not Available [...] completed Not Available Not Available Not Available [facility] ODT 75 mg disintegrat ing tablet 12/27 completed Not Available Not Available Not Available Vitals Date Recorded Body height Body mass index (BMI) Body weight Body temperature Heart rate Systolic blood pressure Diastolic blood pressure Provider Name and Address Organization Details Last Updated DateTime 170.18 cm 38.1 kg/m2 753522. 66 g 97.9 [degF] 99 /min 134 mm[Hg] 89 mm[Hg] Parrisestrada Torres [facility] [place] 13:17:54 Social History Question Answer Notes LastModified by [employer] Details LastModified Time Tobacco Smoking Status Never Smoker Parris Torres [facility], [facility] & [place] 07/03/2024 15:12:10 What Is Your Level Of Caffeine Consumption? Occasional [email or web address] Information not available 07/04/2024 Sex: Female Functional Status Question Answer Note LastModified by [employer] Details LastModified Time Do you use any illicit or recreational drugs? No [email or web address] Information not available 07/03/2024 What is your level of alcohol consumption? Occasional Information not available 07/03/2024 Mental Status None recorded. Family History Relationship Description Onset Age of this Age Resolved Age Notes LastModified by Organization Details LastModified Time Father Hypertensive disorder [email or web address] Not available 06/2024 15:12:25 Father Hypercholest erolemia [id number] Not available 06/2024 15:12:51 Mother Hypertensive disorder [id number] Not available 06/2024 15:12:25 Mother Hypercholest erolemia [id number] Not available 06/2024 15:12:51 Mother Asthma Not availabl e 07/04/2024 13:49:15 Mother Chronic obstructive pulmonary disease [id number] Not available 06/2024 15:13:21 Maternal Grandmother Hypertensive disorder [id number] Not available 06/2024 15:12:25 Maternal Grandmother Chronic obstructive pulmonary disease [id number] Not available 06/2024 15:13:21 Maternal Grandfather Malignant neoplasm of lung [id number] Not available 06/23 13:49:15 Brother Asthma [email or web address] Not availab le 07/04/2024 13:49:15 Sister Asthma [email or web address] Not availabl e 07/04/2024 13:49:15 Medical History [...] SNOMED-CT Code Diagnosis ICD10 Code Diagnosis Note [id number] ANAIS Azar [facility] n Bariatric s and Adv Surg [address] [facility] [address] [place] [address] 02/05/2025 13:13:06 02/05/2025 13:59:10 Gestation period, 19 weeks 89551616 Z3A.19 is progressin g well. Patient has a follow-up with obstetrici an on 02/07/2025 We are drawing labs today and we shared these with her obstetrici an. Nausea 599514479 R11.0 Patient has prescripti on of Zofran. She is to use this as needed. Nutritiona l assessment 046333634 Z00.8 Encouraged patient track calories and protein. Advised 12-1500 calories and 80 g of protein daily.Evita ent declines dietitian visit todayPatie nt is to continue vitamin supplement ation. We are checking bariatric vitamin panel will contact patient to correct any deficienci es History of gastrectomy 416009342 Z90.3 Advised qid intake 50% protein 1584-6048 calories/d y less than 100 carbs/dy Patient is status post bariatric surgery and at increased risk for vitamin deficienci es and malnutriti on. Bariatric vitamin panel ordered today. Patient will be contacted to correct any vitamin deficienci es. [facility] risk of nutritional deficit 631101120 Z91.89 Protein le eugene - finding 379814812 R79.89 Vitamin D deficiency 347 38078 E55.9 Health Concerns Section Related Observation LastModified by Organization Billie sheehan LastModified Time None Recorded Concern Status LastModified by Organization Details LastModified Time None Recorded Payers Encounter Date Sequence Insurance Name Policy Number Policy Sanchez Covered Member ID Sanchez Member ID Guarantor Name 02/05/2025 1 [facility] ([place] Penelope Christina [id number] Penelope Christina Notes Date Note Type Note Provider Name and Address Organization Details Recorded Time 02/05/2025 text/html s/p Jem-s OB is Dr Faye Hartmann. 12/28/24 Ultrasound shows normally grown fetus with no abnormality seen. Single intrauterine with cardiac activity. Size consistent with dates. Amniotic fluid volume is normal. A large subchorionic hematoma is seen to extend from the leading edge of the placenta.Pt is off work due to high risk preg w/ large subchorionic hematoma TODAY: Overall patient states she is doing well. 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 OBS happy with current progressPatient states she has less nausea and is no longer vomiting. She has appetite and is eating approximately each hour. She reports over 1000 calories daily not truly tracking. She is likely not getting an enough protein. She reports good urine output. She is lost 15.5 lb since last office visit.She continues to take vitamins as recommended. Patient has previous history of vitamin-D deficiency. Recent labs show elevated ferritin. She is due for bariatric lab panel todayPatient continues to take omeprazolePatient does have frequent nausea. She states she has Zofran but takes this only in extreme cases as she does not want to take medication during . @12/27/24 OV -Patient presented for EGD on 12/14/2024 and was found [...] -Patient presents today for sick visit s/p Jem-s 10/16/ UGI (Read as [facility]) No stricture identified no hiatal [...] to return to work. 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 She states she has no money for different vitamins.Heartburn/gas troesophageal reflux: she is taking omeprazole.She reports constipation. Pt Denies : abdominal pain, prandial issues Nausea, Vomiting, bladder issuesTotal Weight loss 35lbElevated BP today - pt has not been taking HCTZ. She has not seen PCP since surgery. @11/09/24 Patient presents today as sick visit. She is s/p Jem-s 10/16/24[facility] [...] glue from each incision.Path benign ANAIS Azar [address], [place], [address], [place] [facility] & [place] 02/05/2025 13:49:27 OBGyn Episode No OBEpisode recorded.
--- OUTSIDE RECORDS SUMMARY | 2025-02-14 08:50 | XMS_ITS | Continuity of Care Document ---
Author Organization [place] [facility] Address [address] [place] [address] Care Team Providers Care Kosher Dietary Service Supervisor Name Role Phone KARLOS CHESTER Primary Care Provider [phone] Assessment Encounter Date Assessment Date Assessment LastModified by Organization Details LastModified Time 12/27/2024 12/27/2024 A total of 15 minutes was spent with the pt today. Total weight gain for BMI >30 11-18 lbs Recommendations: 1. Eat fix to six small meals and snacks daily 2. Focus on getting a protein with each meal and snack 3. Add in 2 cups of cow's milk daily 4. No liquids with meals 5. Increase calories to 350 per day starting at week 14 6. Aim for 90+ grams of protein and 64 fluid oz, try to get in 5351-2409 calories starting now 7. Use Beyond Verbal dot to track 8. Take vitamins as directed by OB 9. Choose higher calorie protein supplements with 350 or 500 kcal 10. F/U every 6 weeks Pt doing well overall. Addressed concerns today. Pt was reassured at today's visit. Pt verbally agreed to recommendations and goals. Denied further questions/concerns . RDN will monitor weight loss, labs, meds, and lifestyle modifications. Will f/up as scheduled or PRN. [email or web address] Not available 12/27/2024 11:07:23 Plan of Treatment Reminders Order Date Submit Date Provider Last Modified By Organization Details Last Modified Time Details Appointments OV EST 20 025 11:00AM RON Azar Not available Not available Not available Lab [...] Organization Details Recorded Time Essential hypertensi on 94306977 Active [address], [place], [address] , [place] [facility] [place] & [place] 4 12:30:28 Obesity 216412789 Active [address], [place], [address] , [place] [facility] [place] 4 12:30:50 Disorder of function of stomach 758831018 Active [address], [place], [address] , [place] [facility] [place] 4 12:30:50 Impaired glucose tolerance 5006144 Active [address], [place], [address] , [place] [facility] [place] 4 12:31:02 Postoperat nicholas pain 087680538 Active [address], [place], [address] , [place] [facility] [place] 5 08:04:37 Contact dermatitis 98588905 Active [address], [place], [address] , [place] [facility] [place] 5 10:32:01 Nausea 684717467 Active [address], [place], [address] , [place] [facility] [place] 5 09:06:20 Nausea and vomiting 63460893 Active [address], [place], [address] , [place] [facility] [place] & [place] 5 10:19:41 Bilious vomiting 77118965 Active 2024 RON Azar [address], [place], [address] , [place] [facility] [place] 5 09:06:37 Mild dehydratio n 5238494179783 Active 2024 RON Azar [address], [place], [address] , [place] [facility] [place] & [place] 5 09:09:44 Intentiona l weight loss 377417093 Active [address], [place], [address] , [place] [facility] [place] & [place] 5 09:06:38 Body mass index 40+ - severely obese 457937909 Active 2024 RON Azar [address], [place], [address] , [place] [facility] [place] 5 09:07:05 Severe obesity 8593305276154 4 Active 2024 RON Azar [address], [place], [address] , [place] [facility] [place] 5 09:07:24 Nutritiona l deficiency state 35042567 Active 2024 RON Az[address], [place], [address] , [place] [facility] [place] & [place] 5 10:04:26 Epigastric pain 52043656 Active 2024 RON Azar [address], [place], [address] , [place] [facility] [place] & [place] 5 10:16:35 Gestation period, 13 weeks 01368319 Active 2024 RON Azar [address], [place], [address] , [place] [facility] [place] 5 10:26:24 Gestation period, 19 weeks 91364097 Active 2024 RON Azar [address], [place], [address] , [place] [facility] [place] 5 13:38:05 Protein level - finding 228641053 Active 2024 RON Azar [address], [place], [address] , [place] [facility] [place] 13:39:22 Vitamin D deficiency 60646012 Active 2024 RON Azar [address], [place], [address] , [place] [facility] [place] 13:40:16 Paresthesi a of upper limb 76896095 Active 2023 Raquel Guillen DO [address] , [place], [address] , [place] [facility] [place] 15:38:11 Problem Notes None recorded. Procedures Surgical History Date Name Laterality Status Provider Name and Address Organization Details Recorded Time 10/16/19 25 procedure on duodenum completed Parris GUTHRIE - [facility] [place] 11/09/2024 08:47:34 12/09/19 24 EMG/ Nerve Conduction Study completed Raquel Guillen DO [address], [place], [address], [place] [facility] [place] 12/09/2023 15:38:[address], [place], [address], [place] [facility] [place] 07/04/2024 12:57:53 extraction of wisdom tooth completed Parris GUTHRIE - [facility] - [place] & [place] 07/03/2024 15:07:44 Tonsillectomy completed Parris Torres [place] [facility] [place] 07/03/2024 15:07:52 procedure on ganglion cyst completed Stephanie Castro [facility] & [place] 10/04/2024 07:53:08 Imaging Results None recorded. Procedure [...] Organization Details Last Updated DateTime 170.18 cm 97.1 [degF] 91 /min 40.5 kg/m2 098301. 35 g 141 mm[Hg] 100 mm[Hg] Stephanie Castro [facility] & [place] 09:49:04 Social History Question Answer Notes LastModified by Organizat ion Details LastModified Time Tobacco Smoking Status Never Smoker Parris Torres null, [facility] & [place] 07/03/2024 15:12:10 What Is Your Level Of Caffeine Consumption? Occasional [email or web address] Information not available 07/04/2024 Sex: Female Functional Status Question Answer Note LastModified by Organizat ion Details LastModified Time Do you use any illicit or recreational drugs? No [email or web address] Information not available 07/03/2024 What is your level of alcohol consumption? Occasional [email or web address] Information not available 07/03/2024 Mental Status None recorded. Family History Relationship Description Onset Age of this Age Resolved Age Notes LastModified by Organization Details LastModified Time Father Hypertensive disorder [email or web address] Not available 06/2024 15:12:25 Father Hypercholest erolemia [email or web address] Not available 06/2024 15:12:51 Mother Hypertensive disorder [email or web address] Not available 06/2024 15:12:25 Mother Hypercholest erolemia [email or web address] Not available 06/2024 15:12:51 Mother Asthma [email or web address] Not availabl e 07/04/2024 13:49:15 Mother Chronic obstructive pulmonary disease [email or web address] Not available 06/2024 15:13:21 Maternal Grandmother Hypertensive disorder [email or web address] Not available 06/2024 15:12:25 Maternal Grandmother Chronic obstructive pulmonary disease [email or web address] Not available 06/2024 15:13:21 Maternal Grandfather Malignant neoplasm of lung [email or web address] Not available 06/23 13:49:15 Brother Asthma [email or web address] Not availab le 07/04/2024 13:49:15 Sister Asthma [email or web address] Not availabl e 07/04/2024 13:49:15 Medical History [...] SNOMED-CT Code Diagnosis ICD10 Code Diagnosis Note [id number] [facility] [address] [place] [address] 12/01/2024 09:40:04 12/01/2024 10:22:02 Nausea and vomiting 92712302 R11.2 Long discussion with patient regarding fatigue [...] has been resulted Nutritiona l deficiency state 43828125 E63.9 Encouraged patient see focus on p.o. intake. Advised she continue small frequent sips of protein drinks. History of gastrectomy 694451832 Z90.3 s/p Tori-s 10/16/24 with continued struggles including nausea vomiting p.o. intake.Carmen thorne had upper GIPatient will be scheduled for upper endoscopy for further evaluation Epigastric pain 83835884 R10.13 Advised patient to continue omeprazole . [...] atient is advised to go to this [place] [facility] for any acute worsening symptoms [id number] [facility] [address] [place] [address] 12/27/2024 09:45:05 12/27/2024 11:07:46 Diet education 78420642 Z71.3 [id number] RON Azar [facility] [address] [facility] [place] [address] 12/27/2024 09:47:12 12/27/2024 12:24:19 Gestation period, 13 weeks [id number] Z3A.[address] Guillen today.Advi sed to continue vitamins. Next labs due January 2025Pt has appt with vp data today to discuss caloric need. Advise minimal 3977-1538 calories daily and 90 g proteinPt has high density talc coater operator app[place] to establish carePt given copy of recent labs to share with OB History of gastrectomy [id number] Z90.3 s/p Tori-s 10/16/24Fol lowup with labs January 2025 Health Concerns Section Related Observation LastModified by Organization Detai ls LastModified Time None Recorded Concern Status LastModified by Organization Details LastModified Time None Recorded Payers Encounter Date Sequence Insurance Name Policy Number Policy Sanchez Covered Member ID Sanchez Member ID Guarantor Name 12/27/2024 1 [facility] (MEDICAID REPLACEMENT - HMO) MARY Christina [id number] Penelope Christina Notes Date Note Type Note [...] Tori-s 10/16/ UGI (Read as ERIN HOP[facility]) No stricture identified no hiatal [...] to return to work. 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
--- OUTSIDE RECORDS SUMMARY | 2025-02-14 08:50 | XMS_ITS | Data Portability ---
Author Organization [facility] Address [address] [place] [id number] Care Team Providers Care Sound Engineer Audio Control Name Role Phone KARLOS CHESTER Primary Care Provider [phone] Assessment Encounter Date Assessment Date Assessment LastModified [...] 64 fluid oz, try to get in [id number] calories starting now 7. Use Cortexyme dot to track 8. Take vitamins as [...] Details Appointments OV EST 20 2024 11:00A M RON Azar Not available Not available Not available Lab vitamin D, 25-hydrox y, total, serum 2024 025 [facility], [address], [address], [place], [address], 02/12/2025 04:16:31 copper, serum or plasma 2024 025 [facility], [address], [address], [place], [address], 02/12/2025 04:16:30 selenium, quantitat nicholas, blood 2024 025 [facility], [address], [address], [place], [address], 02/12/2025 04:16:30 prealbumi n, serum 2024 025 [facility], [address], [address], [place], [address], 02/12/2025 04:16:32 zinc, serum or plasma 2024 025 [facility], [address], [address], [place], [address], 02/12/2025 04:16:29 folate, serum 2024 025 [facility], [address], [address], [place], [address], 02/12/2025 04:16:29 thiamine, QN, blood 2024 025 [facility], [address], [address], [place], [address], 02/12/2025 04:16:29 methylmal jeffrey, QN, serum or plasma 2024 025 [facility], [address], [address], [place], [address], 02/12/2025 04:16:29 iron + TIBC + ferritin, serum 2024 025 [facility], [address], [address], [place], [address], 02/12/2025 04:16:31 CBC w/ auto diff 2024 025 [facility], [address], [address], [place], [address], 02/12/2025 04:16:30 CMP, serum or plasma 2024 025 [facility], [address], [address], [place], [address], 02/12/2025 04:16:31 vitamin E, serum 2024 025 [facility], [address], [address], [place], [address], 02/12/2025 04:16:32 vitamin A (retinol) , serum 2024 025 [facility], [address], [address], [place], [address], 02/12/2025 04:16:32 TSH + free T4, serum 2024 025 [facility], [address], [address], [place], [address], 02/12/2025 04:16:32 magnesium , serum or plasma 2024 025 [facility], [address] [place] [address], [address], 12/08/2024 04:11:53 phosphoru s, serum or plasma 2024 025 [facility], [address] [place] [address], [address], 12/08/2024 04:11:53 CBC w/ auto diff 2024 025 [facility], [address], [address], [place], [address], 12/02/2024 03:38:32 CMP, serum or plasma 2024 025 [facility], [address], [address], [place], [address], 12/02/2024 03:38:33 folate, serum 2024 025 [facility], [address], [address], [place], [address], 11/24/2024 18:36:58 prealbumi n, serum 2024 025 [facility], [address], [address], [place], [address], 11/24/2024 18:37:01 thiamine, QN, blood 2024 025 [facility], [address], [address], [place], [address], 11/24/2024 18:37:00 methylmal jeffrey, QN, serum or plasma 2024 025 [facility], [address], [address], [place], [address], 11/24/2024 18:37:00 CBC w/ auto diff 2024 025 [facility], [address], [address], [place], [address], 11/24/2024 18:36:56 CMP, serum or plasma 2024 025 [facility], [address], [address], [place], [address], 11/24/2024 18:36:57 iron + TIBC + ferritin, serum 2024 025 [facility], [address], [address], [place], [address], 11/24/2024 18:36:55 vitamin D, 25-hydrox y, total, serum 2024 025 [facility], [address], [address], [place], [address], 11/24/2024 18:36:59 vitamin E, serum 2024 025 [facility], [address], [address], [place], [address], 11/24/2024 18:36:57 vitamin A (retinol) , serum 2024 025 [facility], [address], [address], [place], [address], 11/24/2024 18:36:59 TSH + free T4, serum 2024 025 [facility], [address], [address], [place], [address], 11/24/2024 18:36:55 Referral None recorded. Procedures None recorded. Surgeries esophagog astroduod enoscopy (SURG) 2024 025 earl Rubi MD, [address] [place] [address], [address], [place], [address], 12/15/2024 11:34:18 Imaging None recorded. Medication Orders thiamine HCl (vitamin B1) 100 mg/mL injection solution 2024 025 [email or web address] Not available 12/27/2024 09:50:37 cyanocoba yves (vit B-12) 1,000 mcg/mL injection solution 2024 025 Not available 12/27/2024 09:50:09 Compazine 5 mg tablet 2024 025 [facility], [address] [place], [address], 12/01/2024 10:20:25 ondansetr on 8 mg disintegr ating tablet 2024 025 [facility], [address] [place], [address], 11/17/2024 09:24:21 Patient TargetsNo targets recorded. Patient InstructionsNo instructions recorded. Reason for Referral None Reported. Results Created Date Observation Date Name Description Value Unit Range Abnormal Flag Note LastModifiedBy Organization Detail LastModifiedTime 11/18/1911/18/2024 FE+TI BC+FE R iron bind.cap.(TI BC) 310 ug/dL 250-45 0 normal Not Available [facility] ([facility]) [address] [place], [address], 11/24/2024 18:36:54 11/18/19 25 11/18/2024 FE+TI BC+FE R UIBC 230 ug/dL 131-42 5 normal Not Available [facility] ([facility]) [address] [place], [address], 11/24/2024 18:36:54 11/18/1911/18/2024 FE+TI BC+FE R iron 80 ug/dL 27-159 normal Not Available [facility] ([facility]) [address] [place], [address], 11/24/2024 18:36:54 11/18/19 25 11/18/2024 FE+TI BC+FE R iron saturation 26 % 15-55 normal Not Available [facility]) [address] [place], [address], 11/24/2024 18:36:54 11/18/1911/18/2024 FE+TI BC+FE R ferritin 482 NG/mL 15-150 above high normal Not Available [facility] ([facility]) [address] [place], [address], 11/24/2024 18:36:54 11/18/1911/18/2024 TSH+F REE T4 TSH 2.210 uIU/m L 0.450- 4.500 normal Not Available [facility] ([facility]) [address] [place], [address], 11/24/2024 18:36:55 11/18/1911/18/2024 TSH+F REE T4 T4,free(dire ct) 1.44 NG/dL 0.82-1 .77 normal Not Available [facility] ([facility]) [address] [place], [address], 11/24/2024 18:36:55 11/18/19 25 11/18/2024 CBC WITH DIFFE RENTI AL/PL ATELE T WBC 5.0 x10e3 /uL 3.4-10 .8 normal Not Available [facility] ([facility]) [address] [place], [address], 11/24/2024 18:36:56 11/18/1911/18/2024 CBC WITH DIFFE RENTI AL/PL ATELE T RBC 5.41 x10e6 /uL 3.77-5 .28 above high normal Not Available [facility] ([facility]) [address] [place], [address], 11/24/2024 18:36:56 11/18/1911/18/2024 CBC WITH DIFFE RENTI AL/PL ATELE T hemoglobin 15.3 g/dL 11.1-1 5.9 normal Not Available [facility] ([facility]) [address] [place], [address], 11/24/2024 18:36:56 11/18/1911/18/2024 CBC WITH DIFFE RENTI AL/PL ATELE T hematocrit 45.0 % 34.0-4 6.6 normal Not Available [facility] ([facility]) [address] [place], [address], 11/24/2024 18:36:56 11/18/19 25 11/18/2024 CBC WITH DIFFE RENTI AL/PL ATELE T MCV 83 fL 79-97 normal Not Available [facility] ([facility]) [address] [place], [address], 11/24/2024 18:36:56 11/18/1911/18/2024 CBC WITH DIFFE RENTI AL/PL ATELE T MCH 28.3 pg 26.6-3 3.0 normal Not Available [facility] ([facility]) [address] [place], [address], 11/24/2024 18:36:56 11/18/1911/18/2024 CBC WITH DIFFE RENTI AL/PL ATELE T MCHC 34.0 g/dL 31.5-3 5.7 normal Not Available [facility] ([facility]) [address] [place], [address], 11/24/2024 18:36:56 11/18/1911/18/2024 CBC WITH DIFFE RENTI AL/PL ATELE T RDW 15.0 % 11.7-1 5.4 Not Available [facility] ([facility]) [address] [place], [address], 11/24/2024 18:36:56 11/18/1911/18/2024 CBC WITH DIFFE RENTI AL/PL ATELE T platelets 168 x10e3 /uL 150-45 0 normal Not Available [facility] ([facility]) [address] [place], [address], 11/24/2024 18:36:56 11/18/19 25 11/18/2024 CBC WITH DIFFE RENTI AL/PL ATELE T neutrophils 58 % not estab. normal Not Available [facility] ([facility]) [address] [facility], [place], [address], 11/24/2024 18:36:56 11/18/19 25 11/18/2024 CBC WITH DIFFE RENTI AL/PL ATELE T lymphs 32 % not estab. normal Not Available [facility] ([facility]) [address] [facility], [place], [address], 11/24/2024 18:36:56 11/18/19 25 11/18/2024 CBC WITH DIFFE RENTI AL/PL ATELE T monocytes 9 % not estab. normal Not Available [facility] ([facility]) [address] [facility], [place], [address], 11/24/2024 18:36:56 11/18/19 25 11/18/2024 CBC WITH DIFFE RENTI AL/PL ATELE T eos 1 % not estab. normal Not Available [facility] ([facility]) [address] [facility], [place], [address], 11/24/2024 18:36:56 11/18/19 25 11/18/2024 CBC WITH DIFFE RENTI AL/PL ATELE T basos 0 % not estab. normal Not Available [facility] ([facility]) [address] [facility], [place], [address], 11/24/2024 18:36:56 11/18/19 25 11/18/2024 CBC WITH DIFFE RENTI AL/PL ATELE T immature cells SUMMER NANNY Not Available [facility] ([facility]) [address] [place], [address], 11/24/2024 18:36:56 11/18/19 25 11/18/2024 CBC WITH DIFFE RENTI AL/PL ATELE T neutrophils (absolute) 2.9 x10e3 /uL 1.4-7. 0 normal Not Available [facility] ([facility]) [address] [facility], [place], [address], 11/24/2024 18:36:56 11/18/19 25 11/18/2024 CBC WITH DIFFE RENTI AL/PL ATELE T lymphs (absolute) 1.6 x10e3 /uL 0.7-3. 1 normal Not Available [facility] ([facility]) [address] [facility], [place], [address], 11/24/2024 18:36:56 11/18/19 25 11/18/2024 CBC WITH DIFFE RENTI AL/PL ATELE T monocytes(ab solute) 0.5 x10e3 /uL 0.1-0. 9 normal Not Available [facility] ([facility]) [address] [facility], [place], [address], 11/24/2024 18:36:56 11/18/19 25 11/18/2024 CBC WITH DIFFE RENTI AL/PL ATELE T eos (absolute) 0.0 x10e3 /uL 0.0-0. 4 normal Not Available [facility] ([facility]) [address] [facility], [place], [address], 11/24/2024 18:36:56 11/18/19 25 11/18/2024 CBC WITH DIFFE RENTI AL/PL ATELE T baso (absolute) 0.0 x10e3 /uL 0.0-0. 2 normal Not Available [facility] ([facility]) [address] [place], [address], 11/24/2024 18:36:56 11/18/19 25 11/18/2024 CBC WITH DIFFE RENTI AL/PL ATELE T immature granulocytes 0 % not estab. Not Available [facility] ([facility]) [address] [place], [address], 11/24/2024 18:36:56 11/18/19 25 11/18/2024 CBC WITH DIFFE RENTI AL/PL ATELE T immature grans (abs) 0.0 x10e3 /uL 0.0-0. 1 Not Available [facility] ([facility]) [address] [facility], [place], [address], 11/24/2024 18:36:56 11/18/19 25 11/18/2024 CBC WITH DIFFE RENTI AL/PL ATELE T NRBC SUMMER NANNY Not Available [facility] ([facility]) [address] [facility], [place], [address], 11/24/2024 18:36:56 11/18/19 25 11/18/2024 CBC WITH DIFFE RENTI AL/PL ATELE T hematology comments: SUMMER NANNY Not Available [facility]) [address] [facility], [place], [address], 11/24/2024 18:36:56 11/18/19 25 11/18/2024 COMP. METAB OLIC PANEL (14) glucose 106 mg/dL 70-99 above high normal Not Available [facility] ([facility]) [address] [facility], [place], [address], 11/24/2024 18:36:57 11/18/19 25 11/18/2024 COMP. METAB OLIC PANEL (14) BUN 6 mg/dL 6-20 normal Not Available [facility] ([facility]) [address] [facility], [place], [address], 11/24/2024 18:36:57 11/18/19 25 11/18/2024 COMP. METAB OLIC PANEL (14) creatinine 0.56 mg/dL 0.57-1 .00 below low normal Not Available [facility] ([facility]) [address] [facility], [place], [address], 11/24/2024 18:36:57 11/18/19 25 11/18/2024 COMP. METAB OLIC PANEL (14) eGFR 129 mL/mi n/1.7 3 >59 normal Not Available [facility] ([facility]) [address] [place], [address], 11/24/2024 18:36:57 11/18/19 25 11/18/2024 COMP. METAB OLIC PANEL (14) BUN/creatini ne ratio 11 9-23 normal Not Available [facility]) [address] [facility] [place], [address], 11/24/2024 18:36:57 11/18/19 25 11/18/2024 COMP. METAB OLIC PANEL (14) sodium 135 mmol/ L 134-14 4 normal Not Available [facility] ([facility]) [address] [facility] [place], [address], 11/24/2024 18:36:57 11/18/19 25 11/18/2024 COMP. METAB OLIC PANEL (14) potassium 3.7 mmol/ L 3.5-5. 2 normal Not Available [facility] ([facility]) [address] [facility] [place], [address], 11/24/2024 18:36:57 11/18/19 25 11/18/2024 COMP. METAB OLIC PANEL (14) chloride 98 mmol/ L 96-106 normal Not Available [facility] ([facility]) [address] [facility] [place], [address], 11/24/2024 18:36:57 11/18/19 25 11/18/2024 COMP. METAB OLIC PANEL (14) carbon dioxide, total 18 mmol/ L 20-29 below low normal Not Available [facility] ([facility]) [address] [facility] [place], [address], 11/24/2024 18:36:57 11/18/19 25 11/18/2024 COMP. METAB OLIC PANEL (14) calcium 9.6 mg/dL 8.7-10 .2 normal Not Available [facility] ([facility]) [address] [facility], [place], [address], 11/24/2024 18:36:57 11/18/19 25 11/18/2024 COMP. METAB OLIC PANEL (14) protein, total 7.1 g/dL 6.0-8. 5 normal Not Available [facility] ([facility]) [address] [facility] [place], [address], 11/24/2024 18:36:57 11/18/19 25 11/18/2024 COMP. METAB OLIC PANEL (14) albumin 4.3 g/dL 4.0-5. 0 normal Not Available [facility] ([facility]) [address] [facility] [place], [address], 11/24/2024 18:36:57 11/18/19 25 11/18/2024 COMP. METAB OLIC PANEL (14) globulin, total 2.8 g/dL 1.5-4. 5 Not Available [facility] ([facility]) [address] [facility] [place], [address], 11/24/2024 18:36:57 11/18/19 25 11/18/2024 COMP. METAB OLIC PANEL (14) bilirubin, total 0.8 mg/dL 0.0-1. 2 normal Not Available [facility] ([facility]) [address] [facility] [place], [address], 11/24/2024 18:36:57 11/18/19 25 11/18/2024 COMP. METAB OLIC PANEL (14) alkaline phosphatase 91 IU/L 44-121 normal Not Available [facility] [address] [facility] [place], [address], 11/24/2024 18:36:57 11/18/19 25 11/18/2024 COMP. METAB OLIC PANEL (14) AST (SGOT) 40 IU/L 0-40 normal Not Available [facility] ([facility]) [address] [facility] [place], [address], 11/24/2024 18:36:57 11/18/19 25 11/18/2024 COMP. METAB OLIC PANEL (14) ALT (SGPT) 48 IU/L 0-32 above high normal Not Available [facility] ([facility]) [address] [facility], [place], [address], 11/24/2024 18:36:57 11/18/19 25 11/24/2024 VITAM IN E vitamin E(alpha tocopherol) 5.6 mg/L 5.9-19 .4 below low normal Not Available [facility] ([facility]) [address] [facility], [place], [address], 11/24/2024 18:36:57 11/18/19 25 11/24/2024 VITAM IN [...] in E defic ient. Not Available [facility] ([facility]) [address] [facility], [place], [address], 11/24/2024 18:36:57 11/18/19 25 11/18/2024 FOLAT E (FOLI C ACID) , SERUM folate (folic acid), serum 6.5 NG/mL >3.0 normal A serum folat e matt ntrat ion of less than 3.1 ng/mL is consi dered to repre sent clini abby defic iency . Not Available [facility] ([facility]) [address] [facility], [place], [address], 11/24/2024 18:36:58 11/18/19 25 11/24/2024 VITAM IN [...] Drug Admin istra tion. Not Available [facility] ([facility]) [address] [facility], [place], [address], 11/24/2024 18:36:58 11/18/1911/18/2024 VITAM IN D, 25-HY DROXY vitamin D, [...] um and D. Lucretia pleitez [place]: [facility] . 2. Reinaldo moreno [place], Eileen mccann [place], David off-F davina i LILLY, et al. Evalu ation , treat ment, and preve ntion of vitam in D defic iency : an Endoc rine Socie ty clini abby pract ice guide line. JCEM. 2010; 96(7) :1911 -30. Not Available [facility] ([facility]) [address] [facility], [place], [address], 11/24/2024 18:36:59 11/18/19 25 11/23/2024 VITAM IN B1 (THIA MINE) , BLOOD vit. B1, whole blood 82.0 nmol/ L 66.5-2 00.0 Not Available [facility] ([facility]) [address] [place], [address], 11/24/2024 18:37:00 11/18/19 25 11/22/2024 METHY LMALO JAREK ACID, SERUM methylmaloni c acid, serum 60 nmol/ L 0-378 Not Available [facility] ([facility]) [address] [place], [address], 11/24/2024 18:37:00 11/18/19 25 11/18/2024 PREAL BUMIN prealbumin 15 mg/dL 14-35 Not Available [facility] ([facility]) [address] [place], [address], 11/24/2024 18:37:01 12/02/19 25 12/02/2024 CBC WITH DIFFE RENTI AL/PL ATELE T WBC 8.4 x10e3 /uL 3.4-10 .8 normal Not Available [facility] ([facility]) [address] [place], [address], 12/02/2024 03:38:32 12/02/19 25 12/02/2024 CBC WITH DIFFE RENTI AL/PL ATELE T RBC 4.94 x10e6 /uL 3.77-5 .28 normal Not Available [facility] ([facility]) [address] [place], [address], 12/02/2024 03:38:32 12/02/19 25 12/02/2024 CBC WITH DIFFE RENTI AL/PL ATELE T hemoglobin 14.3 g/dL 11.1-1 5.9 normal Not Available [facility] ([facility]) [address] [place], [address], 12/02/2024 03:38:32 12/02/19 25 12/02/2024 CBC WITH DIFFE RENTI AL/PL ATELE T hematocrit 41.7 % 34.0-4 6.6 normal Not Available [facility] ([facility]) [address] [place], [address], 12/02/2024 03:38:32 12/02/19 25 12/02/2024 CBC WITH DIFFE RENTI AL/PL ATELE T MCV 84 fL 79-97 normal Not Available [facility] ([facility]) [address] [place], [address], 12/02/2024 03:38:32 12/02/19 25 12/02/2024 CBC WITH DIFFE RENTI AL/PL ATELE T MCH 28.9 pg 26.6-3 3.0 normal Not Available [facility] ([facility]) [address] [place], [address], 12/02/2024 03:38:32 12/02/19 25 12/02/2024 CBC WITH DIFFE RENTI AL/PL ATELE T MCHC 34.3 g/dL 31.5-3 5.7 normal Not Available [facility] ([facility]) [address] [place], [address], 12/02/2024 03:38:32 12/02/19 25 12/02/2024 CBC WITH DIFFE RENTI AL/PL ATELE T RDW 14.5 % 11.7-1 5.4 Not Available [facility] ([facility]) [address] [place], [address], 12/02/2024 03:38:32 12/02/19 25 12/02/2024 CBC WITH DIFFE RENTI AL/PL ATELE T platelets 171 x10e3 /uL 150-45 0 normal Not Available [facility] ([facility]) [address] [place], [address], 12/02/2024 03:38:32 12/02/19 25 12/02/2024 CBC WITH DIFFE RENTI AL/PL ATELE T neutrophils 72 % not estab. normal Not Available [facility] ([facility]) [address] [facility], [place], [address], 12/02/2024 03:38:32 12/02/19 25 12/02/2024 CBC WITH DIFFE RENTI AL/PL ATELE T lymphs 21 % not estab. normal Not Available [facility] ([facility]) [address] [facility], [place], [address], 12/02/2024 03:38:32 12/02/19 25 12/02/2024 CBC WITH DIFFE RENTI AL/PL ATELE T monocytes 6 % not estab. normal Not Available [facility] ([facility]) [address] [facility], [place], [address], 12/02/2024 03:38:32 12/02/19 25 12/02/2024 CBC WITH DIFFE RENTI AL/PL ATELE T eos 1 % not estab. normal Not Available [facility] ([facility]) [address] [facility], [place], [address], 12/02/2024 03:38:32 12/02/19 25 12/02/2024 CBC WITH DIFFE RENTI AL/PL ATELE T basos 0 % not estab. normal Not Available [facility] ([facility]) [address] [place], [address], 12/02/2024 03:38:32 12/02/19 25 12/02/2024 CBC WITH DIFFE RENTI AL/PL ATELE T immature cells SUMMER NANNY Not Available [facility] ([facility]) [address] [place], [address], 12/02/2024 03:38:32 12/02/19 25 12/02/2024 CBC WITH DIFFE RENTI AL/PL ATELE T neutrophils (absolute) 6.0 x10e3 /uL 1.4-7. 0 normal Not Available [facility] ([facility]) [address] [facility], [place], [address], 12/02/2024 03:38:32 12/02/19 25 12/02/2024 CBC WITH DIFFE RENTI AL/PL ATELE T lymphs (absolute) 1.8 x10e3 /uL 0.7-3. 1 normal Not Available [facility] ([facility]) [address] [facility], [place], [address], 12/02/2024 03:38:32 12/02/19 25 12/02/2024 CBC WITH DIFFE RENTI AL/PL ATELE T monocytes(ab solute) 0.5 x10e3 /uL 0.1-0. 9 normal Not Available [facility] ([facility]) [address] [facility], [place], [address], 12/02/2024 03:38:32 12/02/19 25 12/02/2024 CBC WITH DIFFE RENTI AL/PL ATELE T eos (absolute) 0.1 x10e3 /uL 0.0-0. 4 normal Not Available [facility] ([facility]) [address] [place], [address], 12/02/2024 03:38:32 12/02/19 25 12/02/2024 CBC WITH DIFFE RENTI AL/PL ATELE T baso (absolute) 0.0 x10e3 /uL 0.0-0. 2 normal Not Available [facility] ([facility]) [address] [place], [address], 12/02/2024 03:38:32 12/02/19 25 12/02/2024 CBC WITH DIFFE RENTI AL/PL ATELE T immature granulocytes 0 % not estab. Not Available [facility] ([facility]) [address] [facility], [place], [address], 12/02/2024 03:38:32 12/02/19 25 12/02/2024 CBC WITH DIFFE RENTI AL/PL ATELE T immature grans (abs) 0.0 x10e3 /uL 0.0-0. 1 Not Available [facility] ([facility]) [address] [facility], [place], [address], 12/02/2024 03:38:32 12/02/19 25 12/02/2024 CBC WITH DIFFE RENTI AL/PL ATELE T NRBC SUMMER NANNY Not Available [facility] ([facility]) [address] [facility], [place], [address], 12/02/2024 03:38:32 12/02/19 25 12/02/2024 CBC WITH DIFFE RENTI AL/PL ATELE T hematology comments: SUMMER NANNY Not Available [facility] [address] [facility], [place], [address], 12/02/2024 03:38:32 12/02/19 25 12/02/2024 COMP. METAB OLIC PANEL (14) glucose 96 mg/dL 70-99 normal Not Available [facility] ([facility]) [address] [facility], [place], [address], 12/02/2024 03:38:33 12/02/19 25 12/02/2024 COMP. METAB OLIC PANEL (14) BUN 5 mg/dL 6-20 below low normal Not Available [facility] ([facility]) [address] [place], [address], 12/02/2024 03:38:33 12/02/19 25 12/02/2024 COMP. METAB OLIC PANEL (14) creatinine 0.53 mg/dL 0.57-1 .00 below low normal Not Available [facility] ([facility]) [address] [place], [address], 12/02/2024 03:38:33 12/02/19 25 12/02/2024 COMP. METAB OLIC PANEL (14) eGFR 131 mL/mi n/1.7 3 >59 normal Not Available [facility] ([facility]) [address] [place], [address], 12/02/2024 03:38:33 12/02/19 25 12/02/2024 COMP. METAB OLIC PANEL (14) BUN/creatini ne ratio 9 9-23 normal Not Available [facility] ([facility]) [address] [place], [address], 12/02/2024 03:38:33 12/02/19 25 12/02/2024 COMP. METAB OLIC PANEL (14) sodium 136 mmol/ L 134-14 4 normal Not Available [facility] ([facility]) [address] [place], [address], 12/02/2024 03:38:33 12/02/19 25 12/02/2024 COMP. METAB OLIC PANEL (14) potassium 4.5 mmol/ L 3.5-5. 2 normal Not Available [facility] ([facility]) [address] [facility] [place], [address], 12/02/2024 03:38:33 12/02/19 25 12/02/2024 COMP. METAB OLIC PANEL (14) chloride 101 mmol/ L 96-106 normal Not Available [facility] ([facility]) [address] [facility] [place], [address], 12/02/2024 03:38:33 12/02/19 25 12/02/2024 COMP. METAB OLIC PANEL (14) carbon dioxide, total 20 mmol/ L 20-29 normal Not Available [facility] ([facility]) [address] [facility] [place], [address], 12/02/2024 03:38:33 12/02/19 25 12/02/2024 COMP. METAB OLIC PANEL (14) calcium 9.5 mg/dL 8.7-10 .2 normal Not Available [facility] ([facility]) [address] [facility] [place], [address], 12/02/2024 03:38:33 12/02/19 25 12/02/2024 COMP. METAB OLIC PANEL (14) protein, total 6.6 g/dL 6.0-8. 5 normal Not Available [facility] ([facility]) [address] [facility] [place], [address], 12/02/2024 03:38:33 12/02/19 25 12/02/2024 COMP. METAB OLIC PANEL (14) albumin 4.1 g/dL 4.0-5. 0 normal Not Available [facility] ([facility]) [address] [place], [address], 12/02/2024 03:38:33 12/02/19 25 12/02/2024 COMP. METAB OLIC PANEL (14) globulin, total 2.5 g/dL 1.5-4. 5 Not Available [facility] ([facility]) [address] [facility] [place], [address], 12/02/2024 03:38:33 12/02/19 25 12/02/2024 COMP. METAB OLIC PANEL (14) bilirubin, total 1.6 mg/dL 0.0-1. 2 above high normal Not Available [facility] ([facility]) [address] [facility] [place], [address], 12/02/2024 03:38:33 12/02/19 25 12/02/2024 COMP. METAB OLIC PANEL (14) alkaline phosphatase 83 IU/L 44-121 normal Not Available [facility]) [address] [facility] [place], [address], 12/02/2024 03:38:33 12/02/19 25 12/02/2024 COMP. METAB OLIC PANEL (14) AST (SGOT) 46 IU/L 0-40 above high normal Not Available [facility] ([facility]) [address] [facility] [place], [address], 12/02/2024 03:38:33 12/02/19 25 12/02/2024 COMP. METAB OLIC PANEL (14) ALT (SGPT) 59 IU/L 0-32 above high normal Not Available [facility] ([facility]) [address], [place], [address], 12/02/2024 03:38:33 11/11/19 25 11/10/2024 RF, upper gastr ointe yadira l tract , w/ air, w/ contr ast PO No observ ation record ed. [facility] [address], [place], [address], 11/14/2024 15:11:14 11/11/19 25 11/10/2024 RF, upper gastr ointe yadira l tract , w/ air, w/ contr ast PO No observ ation record ed. [facility] (Scheduling) [address], [place], [address], 11/14/2024 15:11:15 11/11/19 25 11/10/2024 RF, upper gastr ointe yadira l tract , w/ air, w/ contr ast PO No observ ation record ed. [email or web address] [facility] (Scheduling) [address], [place], [address], 11/10/2024 14:58:54 Result Notes None recorded. 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 2023 RON Azar [address], [place], [address] , [place] 4 12:30:50 Impaired glucose tolerance 8031995 Active 2023 RON Azar [address], [place], [address] , [place] 4 12:31:02 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 RON Azar [address], [place], [address] , [place] 5 08:04:37 Contact dermatitis 74770846 Active 2024 RON Azar [address] [facility], [place], [address] , [place] 5 10:32:01 Nausea 092451182 Active 2024 RON Azar [address] [facility], [place], [address] , [place] 5 09:06:20 Nausea and vomiting 36470933 Active 2024 RON Azar [address], [place], [address] , [place] 5 10:19:41 Bilious vomiting 07944406 Active 2024 RON Azar [address] [facility], [place], [address] , [place] 5 09:06:37 Mild dehydratio n 8815934949588 Active 2024 RON Azar [address] [facility], [place], [address] , [place] 5 09:09:44 Intentiona l weight loss 917185914 Active 2024 RON Azar [address], [place], [address] , [place] 5 09:06:38 Body mass index 40+ - severely obese 195398432 Active 2024 RON Azar [address], [place], [address] , [place] 5 09:07:05 Severe obesity 0835673708420 4 Active 2024 RON Azar [address], [place], [address] , [place] 5 09:07:24 Nutritiona l deficiency state 57776390 Active 2024 RON Azar [address], [place], [address] , [place] 5 10:04:26 Epigastric pain 77248846 Active 2024 RON Azar [address], [place], [address] , [place] 5 10:16:35 Gestation period, 13 weeks 41240130 Active 2024 RON Azar [address], [place], [address] , [place] 5 10:26:24 Gestation period, 19 weeks 03649024 Active 2024 RON Azar [address], [place], [address] , [place] 5 13:38:05 Protein level - finding 318013222 Active 2024 RON Azar [address], [place], [address] , [place] 5 13:39:22 Vitamin D deficiency 52857634 Active 2024 RON Azar [address], [place], [address] , [facility] & [place] 5 13:40:16 Paresthesi a of upper limb 47372511 Active 2023 Raquel Guillen DO [address] , [place], [address] , [facility] & [place] 15:38:11 Problem Notes None recorded. Procedures Surgical History Date Name Laterality Status Provider Name and Address Organization Details Recorded Time 10/16/19 25 procedure on duodenum completed Parris Torres [facility] & [place] 11/09/2024 08:47:34 12/09/19 24 EMG/ Nerve Conduction Study completed Raquel Guillen DO [address], [place], [address], [facility] & [place] 12/09/2023 15:38:04 Cholecystectomy completed RON Azar [address], [place], [address], [facility] & [place] 07/04/2024 12:57:53 extraction of wisdom tooth completed Parris Torres [facility] & [place] 07/03/2024 15:07:44 Tonsillectomy completed Parris Torres [facility] & [place] 07/03/2024 15:07:52 procedure on ganglion cyst completed Stephanie Castro [facility] & [place] 10/04/2024 07:53:08 Imaging Results None recorded. Procedure [...] Updated DateTime 5 170.18 cm 42.1 kg/m2 840894. 55 g 126 /min 97.7 [degF] 151 mm[Hg] 103 mm[Hg] Jessica Mcnally [facility] & [place] 5 09:02:32 Date Recorded Body height Body temperature Heart rate Body mass index (BMI) Body weight Systolic blood pressure Diastolic blood pressure Provider Name and Address Organization Details Last Updated DateTime 5 170.18 cm 97.3 [degF] 96 /min 41.5 kg/m2 515040. 98 g 120 mm[Hg] 84 mm[Hg] Lorne mcghee [facility] & [place] 5 09:49:02 Date Recorded Body height Body temperature Heart rate Body mass index (BMI) Body weight Systolic blood pressure Diastolic blood pressure Provider Name and Address Organization Details Last Updated DateTime 5 170.18 cm 97.1 [degF] 91 /min 40.5 kg/m2 703272. 35 g 141 mm[Hg] 100 mm[Hg] Stephanie Castro [facility] & [place] 5 09:49:04 Date Recorded Body height Body mass index (BMI) Body weight Body temperature Heart rate Systolic blood pressure Diastolic blood pressure Provider Name and Address Organization Details Last Updated DateTime 5 170.18 cm 38.1 kg/m2 748880. 66 g 97.9 [degF] 99 /min 134 mm[Hg] 89 mm[Hg] Parris Torres [facility] & [place] 5 13:17:54 Social History Question Answer Notes LastModified by [employer] Details LastModified Time Tobacco Smoking Status Never Smoker Parrisestrada Torres [facility] & [place] 07/03/2024 15:12:10 What Is Your Level Of Caffeine Consumption? Occasional [email or web address] Information not available 07/04/2024 Sex: Female Functional Status Question Answer Note LastModified by [email or web address] Details LastModified Time Do you use any illicit or recreational drugs? No Information not available 07/03/2024 What is your level of alcohol consumption? Occasional [email or web address] Information not available 07/03/2024 Mental Status None recorded. Family History Relationship Description Onset Age of this Age Resolved Age Notes LastModified by Organization Details LastModified Time Father Hypertensive disorder [email or web address] Not available 06/2024 15:12:25 Father Hypercholest erolemia [email or web address] Not available 06/2024 15:12:51 Mother Hypertensive disorder [email or web address] Not available 06/2024 15:12:25 Mother Hypercholest erolemia [email or web address] Not available 06/2024 15:12:51 Mother Asthma [email or web address] Not availabl e 07/04/2024 13:49:15 Mother Chronic obstructive pulmonary disease [email or web address] Not available 06/2024 15:13:21 Maternal Grandmother Hypertensive disorder Not available 06/2024 15:12:25 Maternal Grandmother Chronic obstructive pulmonary disease [email or web address] Not available 06/2024 15:13:21 Maternal Grandfather Malignant neoplasm of lung [email or web address] Not available 06/23 13:49:15 Brother Asthma [email or web address] Not availab le 07/04/2024 13:49:15 Sister Asthma [email or web address] Not availabl e 07/04/2024 13:49:15 Medical History [...] SNOMED-CT Code Diagnosis ICD10 Code Diagnosis Note [id number] Raquel DO Thao GuillenZ [facility] [address] [facility],[address] [place] [address] 12/09/2023 15:31:14 12/09/2023 16:01:57 Paresthesia of upper limb 02952438 R20.2 [id number] RON Azar [facility] [address] [place] [address] 07/04/2024 11:29:18 07/04/2024 14:10:15 Obesity 868565124 E66.9 The patient will be scheduled for [...] completed Disorder o f function of stomach 939768747 K31.89 Pre-surger y evaluation 950627020 Z01.818 Obesity screening 445060 005 Z13.89 Essential hypertension 97884244 I10 Impaired g lucose tolerance 0719831 R73.[id number] [facility] [address] [facility] [address] [place] [address] 07/04/2024 13:49:08 07/04/2024 14:22:02 Dietary management surveillance 171063798 Z71.3 Completed nutrition evaluation and education with [...] to patient based on recommende d surgery. [id number] Forest Mena MD [facility] [address] [facility] [address] [place] [address] 08/01/2024 09:01:56 08/01/2024 09:49:38 Preoperative cardiovascular examination 054531206 Z01.810 23-year-ol d female sent for preoperati ve cardiovasc ular evaluation for weight loss surgery. She is physically active asymptomat ic can do more than 6 METs with no limitation s. EKG normal sinus rhythm. She can proceed with the surgery as low risk patient for moderate risk procedure from the cardiovasc ular standpoint . Obesity 130781479 E66.9 obesity body mass index 49.8. For weight loss surgery. Recommend sleep apnea evaluation . Essential hypertension 10824769 I10 hypertensi on on hydrochlor othiazide. Recommend switching to beta mathew because she is in the childbeari ng age. Patient declined at this time. She understand s the possible side effects of hydrochlor othiazide. [id number] [address] [facility] [address] [facility] [address] [place] [address] 08/08/2024 12:37:07 08/08/2024 13:20:53 Dietary management surveillance 796254997 Z71.3 [id number] KALI RUBI MD [facility] [address] [place] [address] [address] [place] [address] 10/04/2024 07:39:52 10/04/2024 14:13:26 Morbid obesity 368106427 E66.01 Pre-surger y evaluation 454447990 Z01.818 Postoperative pain 70507 9007 G89.18 pt will continue pregabalin post operativel y Essential hypertension 49862699 I10 Impaired g lucose tolerance 1676523 R73.03 [id number] RON Azar [facility] [address] [place] [address] [address] [place] [address] 10/24/2024 07:55:40 10/24/2024 10:33:45 History of gastrectomy 801014521 Z90.3 Encouraged patient to continue focus on intake of adequate protein and hydration. Advised minimum 70 g of protein and 800 calories. Patient is to continue incentive spirometer for another 5-7 days Encouraged ambulation Patient is to start bariatric approved vitamin Follow up 3 weeks Contact dermatitis 69554 004 L25.9 Likely from surgical glue. Patient advised to keep area clean. She may apply Benadryl cream or calamine lotion. Advised she take Zyrtec q.a.m. and Benadryl q.p.m.. Advised she avoid scratching these areas. She is report any worsening symptoms. [id number] RON Azar [facility] [address] [place] [address] [address] [place] [address] 11/09/2024 08:34:40 11/09/2024 14:27:44 Nausea and vomiting 08372240 R11.2 Long discussion today regarding adherence to [...] to further evaluate - pt request [facility].Alexander bowen is advised to call or go to the ED for any acute worsening of abdominal symptoms.Alexander douglasmati is to keep scheduled follow-up 11/17/2024 Mild dehydration 6865993 119 108 E86.0 Patient will have to a L normal saline IV rehydratio n today in office. History of gastrectomy 004462504 Z90.3 s/p TORI-s 10/16/24 [id number] RON Azar [facility] [address] [facility] [place] [address] 11/17/2024 08:51:00 11/17/2024 09:41:49 Disorder of function of stomach 437917662 K31.89 Long discussion with patient regarding fatigue [...] call for any worsening symptoms Essential hypertension 06304878 I10 Stop monitor and discussed with PCP Impaired g lucose tolerance 0067837 R73.03 History of gastrectomy 078665317 Z90.3 We discussed diet and the importance [...] [facility] risk of nutritional deficit 934191465 Z91.89 Severe obesity 707802672 1 [address] E66.813 E66.01 Z68.[id number] [facility] [address] [facility] [address] [place] [address] 11/17/2024 09:37:00 11/17/2024 10:29:59 Diet education 58969871 Z71.3 [id number] RON Azar [facility] [address] [facility] [address] [facility] [place] [address] 12/01/2024 09:40:04 12/01/2024 10:22:02 Nausea and vomiting 29582109 R11.2 Long discussion with patient regarding fatigue [...] has been resulted Nutritiona l deficiency state 71693959 E63.9 Encouraged patient see focus on p.o. intake. Advised she continue small frequent sips of protein drinks. History of gastrectomy 366908883 Z90.3 s/p Tori-s 10/16/24 with continued struggles including nausea vomiting p.o. intake.Carmen thorne had upper GIPatient will be scheduled for upper endoscopy for further evaluation Epigastric pain 13358266 R10.13 Advised patient to continue omeprazole . [...] atient is advised to go to this [place] ED for any acute worsening symptoms [id number] [address] [facility] [address] [facility] [address] [facility] [place] [address] 12/27/2024 09:45:05 12/27/2024 11:07:46 Diet education 99972031 Z71.3 [id number] RON Azar [facility] [address] [facility] [address] [facility] [place] [address] 12/27/2024 09:47:12 12/27/2024 12:24:19 Gestation period, 13 weeks 46802090 Z3A.[address] Guillen today.Advi sed to continue vitamins. Next labs due January 2025Pt has appt with precision mechanical instrument maker today to discuss caloric need. Advise minimal 0749-5292 calories daily and 90 g proteinPt has high school music teacher appt today in [place] to establish carePt given copy of recent labs to share with OB History of gastrectomy 290936400 Z90.3 s/p Tori-s 10/16/24Fol lowup with labs January 2025 [id number] RON Azar [facility] [address] [facility] [address] [place] [address] 02/05/2025 13:13:06 02/05/2025 13:59:10 Gestation period, 19 weeks 17177728 Z3A.19 is progressin g well. Patient has a follow-up with obstetrici an on 02/07/2025 We are drawing labs today and we shared these with her obstetrici an. Nausea 768912432 R11.0 Patient has prescripti on of Zofran. She is to use this as needed. Nutritiona l assessment 177797563 Z00.8 Encouraged patient track calories and protein. Advised 12-1500 calories and 80 g of protein daily.Evita ent declines dietitian visit todayPatie nt is to continue vitamin supplement ation. We are checking bariatric vitamin panel will contact patient to correct any deficienci es History of gastrectomy 524990414 Z90.3 Advised qid intake 50% protein 3910-8850 calories/d y less than 100 carbs/dy Patient is status post bariatric surgery and at increased risk for vitamin deficienci es and malnutriti on. Bariatric vitamin panel ordered today. Patient will be contacted to correct any vitamin deficienci es. At [facility] risk of nutritional deficit 439170900 Z91.89 Protein le eugene - finding 408865302 R79.89 Vitamin D deficiency 347 41229 E55.9 Health Concerns Section Related Observation LastModified by Organization Detai ls LastModified Time None Recorded Concern Status LastModified by Organization Details LastModified Time None Recorded Advance Directives Directive None Recorded Payers Insurance Date Sequence Insurance Name Policy Number Policy Sanchez Covered Member ID Sanchez Member ID Guarantor Name 06/21/2024 1 [facility] [place] Penelope Christina [id number] Penelope Christina 11/06/2024 [place] Penelope Christina [id number] Penelope Christina 06/21/2024 2 [place] [id number] 1 Penelope Christina [id number] Penelope Christina 08/01/2024 1 [facility] [place] Penelope Christina [id number] Penelope Christina 02/02/2025 1 [facility] [place] Penelope Christina [id number] Penelope Christina Notes Date Note Type Note [...] to return to work. 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 Pt weight at MD Consult: 301.4#Current Weight: 268.5#Total Weight Change: -32.9# Notes on weight: desires continued weight loss at this time Signs/SymptomsN/V/C/D: nausea, constipation and dry heaves - taking [...] stamps ISRAEL HERNÁNDEZ, RD [address], [place], [address], [place] 11/17/2024 09:58:38 12/01/2024 text/html Patient presents today for sick visit s/p Tori-s 10/16// UGI (Read as ERIN HOPSON [facility]) No stricture identified no hiatal hernia [...] to return to work. 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 Pt is now 12 weeks . Pt weight at MD Consult: 301.4#Current Weight: 258.7#Total Weight Change: -42.7# Notes on weight: Signs/SymptomsN/V/C/D: nausea and vomiting some, diarrhea some Meds and labs reviewed.Notes - Physical activity: none Tracking meal intakes: has not been tracking Est. daily kcal intake: unsure Est. daily protein intake: unsure Est. daily fluid intake: unsure Meal Frequency/Pattern: feels hungry every 30 minutes and eating once every hourmorning: sausaadrian lara r: 3 course mealprotein shakes sometimes - corepowerdoing regular chocolate milk Drinks: body armor, water, sprite zero to help nausea Foods Not Tolerated: none noted Additional notes/concerns: Able to get food stamps and getting WIC, [employer], housing assistance ISRAEL HERNÁNDEZ, [address], [place], [address], [place] 12/27/2024 11:07:36 02/05/2025 text/html s/p Tori-s OB is Dr Faye Hartmann. 12/28/24 Ultrasound [...] she is doing well. She states her process description writer has her this the subchorionic hematoma is [...] presents today for sick visit s/p Tori-s / UGI (Read as ERIN HOPSON [facility]) No stricture identified no hiatal hernia [...] to return to work. 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
--- OUTSIDE RECORDS SUMMARY | 2025-02-14 08:50 | XMS_ITS | Encounter Summary ---
Author Organization [employer] P Address [facility] [place] [address] Phone Care Team Providers Care Cut In Station Operator Name Role Phone Karishma Torres MD Primary Care Provider [phone] Nola [place] MD Primary Care Provider Eben aBll MD Primary Care Provide r Encounter Details Date Type Department Care Team (Late st Contact Info) Description 04/19/2019 OB Documents [facility] [address], [place] [id number] [facility] [address] [place], [place] [address] Social History Tobacco Use Types Packs/Day Years Used Date Smoking Tobacco: Never Smokeless Tobacco: Never Alcohol Use Standard Drinks/Week Comments Never 0 (1 standard drink = 0.6 oz pur e alcohol) smirnoff ice twice per year Comments Yes Sex and Gender Information Value Date Recorded Sex Assigned at Not on file Legal Sex Female 1:44 PM EDT Gender Identity Female 07/21/2019 7:26 PM EST Sexual Orientation Not on file documented as of this encounter Plan of Treatment Not on file documented as of this encounter Visit Diagnoses Not on filedocumented in this encounter Additional Health Concerns Infection Onset Date Last Indicated Resolved Time COVID-19 Asymptomatic Screen 06/06/2020 06/06/2020 06/07/2020 8:29 AM EDT documented as of this encounter Care Teams Cut In Station Operator Relationship Specialty Start Date End Date Karishma Torres MD PCP - General Family Medicine 03/19/20 02/19/21 Nola [place] MD PCP - General Family Medicine 02/20/21 02/21/24 Eben Ball MD PCP - General Family Medicine 02/22/24 documented as of this encounter
--- OUTSIDE RECORDS SUMMARY | 2025-02-14 08:50 | XMS_ITS | Referral Summary ---
Author Organization [facility] Address [address] [place] [address] Phone Care Team Providers Care Hall Manager Name Role Phone Eben Ball MD Primary Care Provide r Allergies No known active allergies Medications Blood Pressure Monitoring (BLOOD PRESSURE MONITOR/L CUFF) [facility] Check blood pressure three times daily. Call if top number is equal or greater to 160 and/or bottom number is equal or greater to 100. 1 each 0 Active polyethylene glycol (MIRALAX) 17 GM/SCOOP POWD Take 17g in am and 17g in pm until stools are soft. May then reduce to 17g or 8g (1/2 scoop) daily to prevent constipation 578 g 1 1 Active Active Problems Problem Noted Date Diagnosed Date Low grade squamous intraepit helial lesion (LGSIL) on cervical Pap smear 02/08/2020 Overview (02/08/2020): Needs repeat co-testing January 2021 Contraception management 04/18/2019 Overview (10/11/2019): 10/11/2019-Pt declines control Morbid obesity with BMI of 40.0-44.9, adult 11/21 Overview (11/01/2019): 05/22/2019 discussed weight gain expectation 11-20lb this 11/01/2019 compliant with weekly BPP Resolved Problems Problem Noted Date Diagnosed Date Resolved Date examination follo wing vaginal delivery 12/20/2019 01/25/2020 Encounter for antepartum con sultation regarding 11/01/2019 12/20/2019 Constipation due to slow transit 10/11/2019 10/25/2019 Presence of lead-based paint in patient's environment 08/24/2019 10/25/2019 Overview (09/13/2019): 08/30/19 - Lead level normal Abdominal pain during pregna ncy in second trimester 07/21/2019 09/13/2019 Overview (07/21/2019): 07/21/2019 wet prep +BV - flagyl sent to pharmacy Not hydrating well- advised increase in hydration Nausea and vomiting 04/19/2019 09/13/19 Overview (05/22/2019): 04/19/2019-Pt c/o N/V 05/22/2019 still having N/V, has been taking B6, did not slat pickler Unisom bc no insurance, instructed pt to buy it OTC Supervision of high-risk pre gnancy, third trimester 04/18/2019 12/20/2019 Overview (11/20/2019): Candidate for centering? If yes, offered to patient? 04/19/2019-Information given, pt not given PNL: Blood type-B pos / Neg-ab , HIV-NR, TA-NR , HepB-NR , Rubella-IMM , UCx-MSF , UDS-Neg Pap / GCCT-Neg/Neg Aneuploidy/CF: Consents signed (date)-Pt had done with infertility. She will review the information GCT: 145 (3 hour GTT NL) GBS: Negative Tdap: 10/11/2019 Flu: denied 05/22/2019 Maternity consent signed (date): signed 10-26-19 Consent to blood transfusion: Delivery Plan: update route and timing by ~35wks ULTRASOUNDS: Dating by L=7 Anatomy: 20W6D, 440gm, C, 3VC, AP, MVP 5.3, Cx 32mm There is mild urinary dilation noted, with the left renal pelvis measuring 4.07 mm. There is no calyceal dilation noted. The renal parenchyma appears normal. There is no hydroureter noted. The bladder appears normal. Recommend a follow up scan at 34 weeks to reassess the renal anatomy and the need for imaging. There is mild urinary dilation noted, with the left renal pelvis measuring 4.07 mm. There is no calyceal dilation noted. The renal parenchyma appears normal. There is no hydroureter noted. The bladder appears normal. Recommend a follow up scan at 34 weeks to reassess the renal anatomy and the need for imaging. 10/24: 33w6d 2683(67) C 3VC AP MVP 7 BALDOMERO 21.6 BPP 10. No mention of abnormal renal anatomy Female infertility 12/05/2018 0 Overview (04/19/2019): 04/19/2019-Pt reports she has been going to an infertility specialist because she has been trying to conceive since she graduated . Elevated blood-pressure read ing, without diagnosis of hypertension 12/05/2018 12/20/2019 Overview (11/22/2019): 04/19/2019-Pt with elevated blood pressure. Retake 123/75 20: BP 153/88, 147/90: PE1 WNL, 24 hr TUP WNL 11/01/2019 130/78 11/15/19 129/91 and 126/86 11/22/19 139/88 Gestational hypertension wit hout significant proteinuria, affecting childbirth 2019 37 weeks gestation of 12/20/2019 Single live 12/20/2019 care and examinat ion immediately after delivery 12/20/2019 Immunizations Immunization Administration Dates Next Due Diphtheria, Tetanus and Pert ussis (DTaP), 5 antigens 09/02/2011,12/18/2002,07/06/2000,06/02,04/30/1999,02/03/1999 FLU VACCINE, 3 YRS AND OLDER 05/10/2013, 05/19/2012,06/12/2011,08/01,08/02/2008,08/04/2007 Hepatitis A, IM (19 and older) 12/08/2012,2011 Hepatitis B, Adult 07/24/1999,02/03/1999, 999 Hib PRP-T conjugate, IM (Act HIB, Hiberix) 05/11/2000,06/02/1999,04/30/1999,02/03 Human Papillomavirus 9-Karlie t (Gardasil 9) 12/08/2012,07/01/2012,05/31/2012 Influenza Whole, IM 06/05/2015,05/17/2014 Measles/Mumps/Rubella, SQ 12/18/2002,05/11/2000 Meningococcal Polysaccharide ACWY-135 DT-Conj (MENACTRA) 06/05/2015,05/31/2012 Poliovirus Inactivated, IM/SQ 12/18/2002 ,07/06/2000,04/30/1999,02/03 Tdap (Tetanus, Diphtheria & Pertussis) 5 Varicella, Live Attenuated (Varivax) 07/17/2009, 05/11/2000 Social History Tobacco Use Types Packs/Day Years Used Date Smoking Tobacco: Never Smokeless Tobacco: Never Tobacco Cessation:Counseling Given: No Alcohol Use Standard Drinks/Week Comments Yes 0 (1 standard drink = 0.6 oz pur e alcohol) smirnoff ice twice per year [place] Depression Scale Answer Date Recorded [place] Depression Scale Total 4 12/20/2019 The thought of harming myself has occurred to me . Never 12/20/2019 Food Insecurities Answer Date Recorded Worried about running out of food Not on file 09/12/2023 Food Bought Not on file 09/12/2023 Housing/Utilities Answer Date Recorded Worried about losing home Not on file 2023 Stayed outside house Not on file 09/12/2023 Unable to get utilities Not on file 09/12/19 Interpersonal Safety Answer Date Record ed Feel physically or emotionally unsafe where curr ently live Not on file 09/12/2023 Harm by anyone Not on file 09/12/2023 Emotionally Harmed Not on file 09/12/2023 Transportation Answer Date Recorded Worried about transportation Not on file Utilities Answer Date Recorded Worried about losing home Not on file 2023 Stayed outside house Not on file 12/25/2023 Unable to get utilities Not on file 12/25/19 24 Comments No Sex and Gender Information Value Date Recorded Sex Assigned at Not on file Legal Sex Female 1:44 PM EDT Gender Identity Female 07/21/2019 7:26 PM EST Sexual Orientation Not on file Last Filed Vital Signs Vital Sign Reading Time Taken Comments Blood Pressure 126/87 10/09/2021 2:12 PM EST Pulse 94 10/09/2021 2:12 PM EST Temperature 36.7 C (98 F) 10/09/2021 2:12 PM EST Respiratory Rate 18 10/09/2021 2:12 PM EST Oxygen Saturation 98% 12/04/2020 2:45 PM EDT Inhaled Oxygen Concentration - - Weight 130.6 kg (288 lb) 10/09/2021 2:12 PM EST Height 167.6 cm (5' 6 ) 10/09/2021 2:12 PM EST Body Mass Index 46.48 10/09/2021 2:12 PM EST Functional Status * Are you deaf or do you have serious difficulty hearing? Answer Date of Assessment Author No 06/05/2020 2:25 PM EDT Debbie Howell, Registered Nurse * Are you blind or do you have serious difficulty seeing, even when wearing glasses? Answer Date of Assessment Author No 06/05/2020 2:25 PM EDT Debbie Howell, Registered Nurse * Do you have serious difficulty walking or climbing stairs? (5 years old or older) Answer Date of Assessment Author No 06/05/2020 2:25 PM EDT Debbie Howell, Registered Nurse * Do you have difficulty dressing or bathing? (5 years old or older) Answer Date of Assessment Author No 06/05/2020 2:25 PM EDT Debbie Howell, Registered Nurse * Because of a physical, mental, or emotional condition, do you have difficulty doing errands alone such as visiting a doctor???s office or shopping? (15 years old or older) Answer Date of Assessment Author No 06/05/2020 2:25 PM EDT Debbie Howell, Registered Nurse Mental Status * Because of a physical, mental, or emotional condition, do you have serious difficulty concentrating, remembering, or making decisions? (5 years old or older) Answer Entry Date Author No 06/05/2020 2:25 PM EDT Debbie Howell, Registered Nurse Plan of Treatment Not on file Procedures Procedure Name Priority Date/Time Associated Diagnosis Comments CHLAMYDIA & GC RNA AMP Routine 10/09/2021 2:39 PM EST Vaginal itching CYTOLOGY BAKER BISCUIT Routine 01/25/2020 11:33 AM EDT Pap smear for cervical cancer screening from Last 3 Months or Most Recently Relevant to Health Maintenance Results * CHLAMYDIA & GC RNA AMP (10/09/2021 2:39 PM EST) SPECIMEN SOURCE Urine, Random CENTRAL RECEIVING SPECIMEN TYPE Urine CENTRA L RECEIVING C. TRACHOMATIS BY AMP RNA Not Detected Not Detected [facility] 2 N. GONORRHOEAE BY AMP RNA Not Detected Not Detected [facility] 2 Comment: (NOTE) Testing methodology is tile grinder mediated amplification (TMA) using the Aptima Combo 2 assay from [employer]. A negative result does not completely rule out a Chlamydia trachomatis or Neisseria gonorrhoeae infection due to potential inhibitors or levels present below the limit of detection by this assay. Results are dependent on proper collection and transport of specimen. This test is indicated for medical purposes only and should not be used for legal or forensic purposes. The performance characteristics of this assay were validated by the testing laboratory. This assay is FDA cleared to test the following specimens: clinician-collected endocervical, vaginal, male urethral swab specimens, rectal swabs, and throat/pharyngeal swabs; patient collected vaginal specimens within a clinic setting; Thin Prep Specimens in PreservCyt Solution; and first-stream, unpreserved male and female urine specimens. Detailed methodology is available upon request. Tested at: [facility], [address] [place] [address] Urine specimen (specimen) URINE SPECIMEN / Unknown 10/09/2021 2:39 PM EST 10/09/2021 8:49 PM EST Josué Silva Jr., MD BODY FLUIDS AND STOOLS ORDERABLES Final Result [facility] [address] [place] [address] [place] [id number] [place] [address] 2 * (ABNORMAL) CYTOLOGY BAKER BISCUIT (01/25/2020 11:33 AM EDT) CYTOLOGY-BAKER BISCUIT CYTOLOGY GYNECOLOGICAL REPORT Name: PENELOPE MERRITT#: [id number] Case #: [id number] Final Cytologic Diagnosis A. Cervical/Endocervic al thinprep pap: Adequacy: Satisfactory for evaluation, endocervical transformation zone component present. Interpretation: Epithelial cell abnormality: Low-grade squamous intraepithelial lesion. This specimen has been analyzed by the ThinPrep Imaging System ([employer] an automated imaging and review system, which assists the forensic anthropologist and/or pathologist in evaluation of cells on Thinprep Pap tests. Flavia Up Electronically Signed Out By Diana Guillen MD Source of Specimen(s) A: Cervical/Endocervic al thinprep pap Clinical History Date of Last Menstrual Period: 01/03/2020 Signed out at [facility], [address] [place] [address] [facility] Non-Formatted Report (A) [facility] 01/25/2020 11:3 3 AM EDT 01/26/2020 3:41 PM EDT Gordo Trejo MD PATHOLOGY/CYTOLOGY ORDERAB LES Final Result [facility] [address] [place] [address] from Last 3 Months or Most Recently Relevant to Health Maintenance Care Teams Hall Manager Relationship Specialty Start Date End Date Eben Ball MD PCP - General Family Medicine 02/22/24
--- OUTSIDE RECORDS SUMMARY | 2025-02-14 08:50 | XMS_ITS | Encounter Summary ---
Author Organization [facility] Address [facility] [place] [address] [address] Phone Care Team Providers Care Resin Maker Name Role Phone Karishma Torres MD Primary Care Provider [phone]- [phone] Nola Dowling MD Primary Care Provider Eben Ball MD Primary Care Provide r Encounter Details Date Type Department Care Team (Late st Contact Info) Description 11/04/2020 E-Visit [facility] [address] [facility] [address] [place] [address] Karishma [place] [id number] [place] [place] [address] RE: RE: Other Topic (See message) Social History Tobacco Use Types Packs/Day Years Used Date Smoking Tobacco: Never Smokeless Tobacco: Never Alcohol Use Standard Drinks/Week Comments Yes 0 (1 standard drink = 0.6 oz pur e alcohol) smirnoff ice twice per year [place] Depression Scale Answer Date Recorded [place] Depression Scale Total 4 12/20/2019 The thought of harming myself has occurred to me . Never 12/20/2019 Comments No Sex and Gender Information Value Date Recorded Sex Assigned at Not on file Legal Sex Female 1:44 PM EDT Gender Identity Female 07/21/2019 7:26 PM EST Sexual Orientation Not on file COVID-19 Exposure Response Date Recorded In the last month, have you been in contact with someone who was confirmed or suspected to have Coronavirus / COVID-19? Unable to assess 11/05/2020 11:21 AM EDT documented as of this encounter Functional Status * Are you deaf or do you have serious difficulty hearing? Answer Date of Assessment Author No 06/05/2020 2:25 PM EDT Debbie Howell Registered Nurse * Are you blind or do you have serious difficulty seeing, even when wearing glasses? Answer Date of Assessment Author No 06/05/2020 2:25 PM EDT Debbie Howell Registered Nurse * Do you have serious difficulty walking or climbing stairs? (5 years old or older) Answer Date of Assessment Author No 06/05/2020 2:25 PM EDT Debbie Howell Registered Nurse * Do you have difficulty dressing or bathing? (5 years old or older) Answer Date of Assessment Author No 06/05/2020 2:25 PM EDT Debbie Howell Registered Nurse * Because of a physical, mental, or emotional condition, do you have difficulty doing errands alone such as visiting a doctor???s office or shopping? (15 years old or older) Answer Date of Assessment Author No 06/05/2020 2:25 PM EDT Debbie Howell Registered Nurse documented as of this encounter Mental Status * Because of a physical, mental, or emotional condition, do you have serious difficulty concentrating, remembering, or making decisions? (5 years old or older) Answer Entry Date Author No 06/05/2020 2:25 PM EDT Debbie Howell Registered Nurse documented in this encounter Plan of Treatment Not on file documented as of this encounter Visit Diagnoses Not on filedocumented in this encounter Care Teams Resin Maker Relationship Specialty Start Date End Date Karishma Torres MD PCP - General Family Medicine 03/19/20 02/19/21 Nola Dowling MD PCP - General Family Medicine 02/20/21 02/21/24 Eben Ball MD PCP - General Family Medicine 02/22/24 documented as of this encounter
--- OUTSIDE RECORDS SUMMARY | 2025-02-14 08:50 | XMS_ITS | Clinical Summary ---
Author Organization [facility] Address [address] [place] [address] Phone Care Team Providers Care Process Environmental Technician Name Role Phone Eben Ball MD Primary Care Provide r Allergies No known active allergies Medications Blood Pressure Monitoring (BLOOD PRESSURE MONITOR/L CUFF) [facility] Check blood pressure three times daily. Call [...] N/V, has been taking B6, did not miner pick Unisom bc no insurance, instructed pt to [...] 5 Varicella, Live Attenuated (Varivax) 07/17/2009, 05/11/2000 Family History Medical History Relation Name Comments Asthma Brother Evaristo Dukes hypothyroidism Maternal Grandmother Depression Mother Laura Merritt Asthma Sister Charity Thomas Relation Name Status Comments Brother Evarsito Dukes Maternal Grandmother Mother Laura Merritt Sister Charity Thomas Social History Tobacco Use Types Packs/Day Years Used Date Smoking Tobacco: Never Smokeless Tobacco: Never Tobacco Cessation:Counseling Given: No Alcohol Use Standard Drinks/Week Comments Yes 0 (1 standard drink = 0.6 oz pur e alcohol) smirnoff ice twice per year [place] Depression Scale Answer Date Recorded [place] Depression Scale Total 4 12/20/2019 The thought [...] Mass Index 46.48 10/09/2021 2:12 PM EST Plan of Treatment Health Maintenance Due Date Last Done Comments Pap Screening 01/24/2023 01/25/2020 Influenza Vaccine (Season Ended) 2025 06/05/2015, 05/17/2014, 05/10/2013, Additional history exists DTap,Tdap,and Td (8 - Td or Tdap) 06/05/2025 06/05/2015, 09/02/2011, 09/02/2011, Additional history exists RSV Vaccine (60+ or ) (1 - 1-dose 75+ series) 2073 HPV Completed 12/08/2012, 11/0 04/2012, 05/31/2012 Meningococcal conjugate valent 4 (MCV4) Completed 06/05/2015, 05/31/2012 Chlamydia Screening Discontinued 10/09/2021, 12/04/2020, 01/25/2020, Additional history exists Meningococcal B (MenB) Aged Out No lo nger eligible based on patient's age to complete this topic Pneumococcal 0-49 Aged Out No longer eligible based on patient's age to complete this topic RSV Immunization (<20 months) Aged Out No longer eligible based on patient's age to complete this topic Procedures Procedure Name Priority Date/Time Associated Diagnosis Comments CHLAMYDIA & GC RNA AMP Routine 10/09/2021 2:39 PM EST Vaginal itching CYTOLOGY MASTER TECHNICIAN Routine 01/25/2020 11:33 AM EDT Pap smear for cervical cancer screening from Last 3 Months or Most Recently Relevant to Health Maintenance Results * CHLAMYDIA & GC RNA AMP (10/09/2021 2:39 PM EST) SPECIMEN SOURCE Urine, Random CENTRAL RECEIVING GS SPECIMEN TYPE Urine CENTRA L RECEIVING GS C. TRACHOMATIS BY AMP RNA Not Detected Not Detected [facility] 2 N. GONORRHOEAE BY AMP RNA Not Detected Not Detected [facility] 2 Comment: (NOTE) Testing methodology is integration analyst mediated amplification (TMA) using the Aptima Combo 2 assay from [employer]. A negative result does not completely rule [...] methodology is available upon request. Tested at: [facility], [address] [place] [address] Urine specimen (specimen) URINE SPECIMEN / Unknown 10/09/2021 2:39 PM EST 10/09/2021 8:49 PM EST us Josué Silva Jr., MD BODY FLUIDS AND STOOLS ORDERABLES Final Result [facility] [address] [place] [id number] [place] [address] 2 * (ABNORMAL) CYTOLOGY MASTER TECHNICIAN (01/25/2020 11:33 AM EDT) CYTOLOGY-MASTER TECHNICIAN CYTOLOGY GYNECOLOGICAL REPORT Name: PENELOPE MERRITT EPI#: [id number] Case #: [id number] Final Cytologic Diagnosis A. Cervical/Endocervic al thinprep pap: Adequacy: Satisfactory for evaluation, endocervical transformation zone component present. Interpretation: Epithelial cell abnormality: Low-grade squamous intraepithelial lesion. This specimen has been analyzed by the ThinPrep Imaging System ([employer] an automated imaging and review system, which assists the field pipe lines supervisor and/or pathologist in evaluation of cells on Thinprep Pap tests. Flavia Up Electronically Signed Out By Diana Guillen MD Source of Specimen(s) A: Cervical/Endocervic al thinprep pap Clinical History Date of Last Menstrual Period: 01/03/2020 Signed out at [facility], [address] [place] [address] [facility] Non-Formatted Report (A) [facility] 01/25/2020 11:3 3 AM EDT 01/26/2020 3:41 PM EDT Gordo Trejo MD PATHOLOGY/CYTOLOGY ORDERAB LES Final Result [facility] [address] [place] [id number] from Last 3 Months or Most Recently Relevant to Health Maintenance Advance Directives * Full Code (Latest Code Status on File) Date Activated Date Inactivated Comments 11/23/2019 12:21 AM 11/24/2019 2:14 PM * Full Code Date Activated Date Inactivated Comments 11/22/2019 10:21 AM 11/23/2019 12:20 AM Care Teams Process Environmental Technician Relationship Specialty Start Date End Date Eben Ball MD PCP - General Family Medicine 02/22/24
--- OUTSIDE RECORDS SUMMARY | 2025-02-14 08:50 | XMS_ITS | Encounter Summary ---
Author Organization [facility] Address [facility] [place] [address] Phone Care Team Providers Care Sparker And Patcher Name Role Phone Karishma Torres MD Primary Care Provider [phone]- [phone] Nola Dowling MD Primary Care Provider Eben Ball MD Primary Care Provide r Encounter Details Date Type Department Care Team (Late st Contact Info) Description 07/27/[address] [id number] Morgan Samaniego MD [facility] [id number] [place] [address] Social History Tobacco Use Types Packs/Day Years [...] documented as of this encounter Care Teams Sparker And Patcher Relationship Specialty Start Date End Date Karishma Torres MD PCP - General Family Medicine 03/19/20 02/19/21 Nola Dowling MD PCP - General Family Medicine 02/20/21 02/21/24 Eben Ball MD PCP - General Family Medicine 02/22/24 documented as of this encounter
--- OUTSIDE RECORDS SUMMARY | 2025-02-14 08:51 | XMS_ITS | Encounter Summary ---
Author Organization [facility] Address [facility] [place] [address] Phone Care Team Providers Care Lock Installer Name Role Phone Karishma Torres MD Primary Care Provider +1- [phone] Nola Dowling MD Primary Care Provider Eben Ball MD Primary Care Provide r Encounter Details Date Type Department Care Team (Late st Contact Info) Description 11/22/2019 OB Documents [facility] [address] [place], [place] [phone] [facility] [address] [place], [place] [id number] Social History Tobacco Use Types Packs/Day Years [...] or suspected to have Coronavirus / COVID-19? No / Unsure 11/23/2019 11:09 AM EDT documented as of this encounter Plan of Treatment Not on file documented as of this encounter Visit Diagnoses Not on filedocumented in this encounter Additional Health Concerns Infection Onset Date Last Indicated Resolved Time COVID-19 Asymptomatic Screen 06/06/2020 06/06/2020 06/07/2020 8:29 AM EDT documented as of this encounter Care Teams Lock Installer Relationship Specialty Start Date End Date Karishma Torres MD PCP - General Family Medicine 03/19/20 02/19/21 Nola Dowling MD PCP - General Family Medicine 02/20/21 02/21/24 Eben Ball MD PCP - General Family Medicine 02/22/24 documented as of this encounter
--- OUTSIDE RECORDS SUMMARY | 2025-02-14 08:51 | XMS_ITS | Continuity of Care Document ---
Author Organization [facility] & [facility]ariat[facility] and Adv Surg Address [address] [place] [address] Care Team Providers Care Day Trader Name Role Phone KARLOS CHESTER Primary Care [...] Organization Details Recorded Time Essential hypertensi on 93852890 Active 2023 RON Azar [address] , [place], [address] , [facility] & [place] 4 12:30:28 Obesity 662158411 Active 2023 RON Azar [address] , [place], [address] , [facility] [place] 4 12:30:50 Disorder of function of stomach 264977412 Active 2023 RON Azar [address], [place], [address] , [facility] [place] 4 12:30:50 Impaired glucose tolerance 0490031 Active 2023 RON Azar [address], [place], [address] , [place] [facility] [place] [facility] [place] 4 12:31:02 Postoperat nicholas pain 752121406 Active 2024 RON Azar [address], [place], [address] , [place] [facility] [place] [facility] [place] 5 08:04:37 Contact dermatitis 58117703 Active 2024 RON zAar [address], [place], [address] , [place] [facility] [place] [facility] [place] 5 10:32:01 Nausea 561468514 Active 2024 RON Azar [address], [place], [address] , [place] [facility] [place] [facility] [place] 5 09:06:20 Nausea and vomiting 68014675 Active 2024 RON Azar [address] , [place], [address] , [place] [facility] [place] [facility] [place] 5 10:19:41 Bilious vomiting 73264958 Active 2024 RON Azar [address] , [place], [address] , [place] [facility] [place] [facility] [place] 5 09:06:37 Mild dehydratio n 6586914695305 Active 2024 RON Azar [address] , [place], [address] , [place] [facility] [place] [facility] [place] 5 09:09:44 Intentiona l weight loss 001253402 Active 2024 RON Azar [address], [place], [address] , [place] [facility] [place] [facility] [place] 5 09:06:38 Body mass index 40+ - severely obese 710351424 Active 2024 RON Azar [address], [place], [address] , [place] [facility] [place] [facility] [place] 5 09:07:05 Severe obesity 9086977923158 4 Active 2024 RON Azar [address], [place], [address] , [place] [facility] [place] [facility] [place] 5 09:07:24 Nutritiona l deficiency state 01522939 Active 2024 RON Azar [address], [place], [address] , [place] [facility] [place] 5 10:04:26 Epigastric pain 36477036 Active 2024 RON Azar [address], [place], [address] , [place] [facility] [place] 5 10:16:35 Gestation period, 13 weeks 23133708 Active 2024 RON Azar [address], [place], [address] , [place] [facility] [place] 5 10:26:24 Gestation period, 19 weeks 29368091 Active 2024 RON Azar [address], [place], [address] , [place] [facility] [place] 5 13:38:05 Protein level - finding 749195359 Active 2024 RON Azar [address], [place], [address] , [place] [facility] [place] 5 13:39:22 Vitamin D deficiency 71908799 Active 2024 RON Azar [address], [place], [address] , [place] [facility] [place] 5 13:40:16 Paresthesi a of upper limb 10305885 Active 2023 Raquel Guillen DO [address], [place], [address] , [facility] & [place] 15:38:11 Problem Notes None recorded. Procedures Surgical History Date Name Laterality Status Provider Name and Address Organization Details Recorded Time 10/16/19 25 procedure on duodenum completed Parris Torres [facility] & [place] 11/09/2024 08:47:34 12/09/19 24 EMG/ Nerve Conduction Study completed Raquel Guillen DO [address], [place], [address], [facility] & [place] 12/09/2023 15:38:04 Cholecystectomy completed RNO Azar [address], [place], [address], [facility] & [place] 07/04/2024 12:57:53 extraction of wisdom tooth completed Parris Torres [facility] & [place] 07/03/2024 15:07:44 Tonsillectomy completed Parris Torres [facility] & [place] 07/03/2024 15:07:52 procedure on ganglion cyst completed Stephanie Castro [facility] [place] 10/04/2024 07:53:08 Imaging Results [...] active Not Available Not Available Not Avai clau cyanocobala min (vit B-12) 1,000 mcg/mL injection [...] cm 97.1 [degF] 91 /min 40.5 kg/m2 973336. 35 g 141 mm[Hg] 100 mm[Hg] Stephanie Castro [facility] 5 09:49:04 Social History Question Answer Notes LastModified by [employer] Details LastModified Time Tobacco Smoking Status Never Smoker Parris Torres [facility] 07/03/2024 15:12:10 What Is Your Level Of Caffeine Consumption? Occasional [email or web address] Information not available 07/04/2024 Sex: Female Functional Status Question Answer Note LastModified by Organizat [employer] Details LastModified Time Do you use any illicit or recreational drugs? No [email or web address] Information not available 07/03/2024 What is your level of alcohol consumption? Occasional [email or web address] Information not available 07/03/2024 Mental Status None recorded. Family History Relationship Description Onset Age of this Age Resolved Age Notes LastModified by Organization Details LastModified Time Father Hypertensive disorder [email or web address] Not available 06/2024 15:12:25 Father Hypercholest erolemia [email or web address] Not available 06/2024 15:12:51 Mother Hypertensive disorder [email or web address] Not available 06/2024 15:12:25 Mother Hypercholest erolemia [id number] Not available 06/2024 15:12:51 Mother Asthma [email or web address] Not availabl e 07/04/2024 13:49:15 Mother Chronic obstructive pulmonary disease [email or web address] Not available 06/2024 15:13:21 Maternal Grandmother Hypertensive disorder [email or web address] Not available 06/2024 15:12:25 Maternal Grandmother Chronic obstructive pulmonary disease [email or web address] Not available 06/2024 15:13:21 Maternal Grandfather Malignant neoplasm of lung [email or web address] Not available 06/23 13:49:15 Brother Asthma [email or web address] Not availab le 07/04/2024 13:49:15 Sister Asthma [...] SNOMED-CT Code Diagnosis ICD10 Code Diagnosis Note [id number] RON Azar [facility] [address] [place] [address] 12/01/2024 09:40:04 12/01/2024 10:22:02 Nausea and vomiting 48641105 R11.2 Long discussion with patient regarding fatigue [...] labs today and will follow up Adelina hogan follow-up 2-3 weeks after EGD has been resulted Nutritiona l deficiency state 15491583 E63.9 Encouraged patient see focus on p.o. intake. Advised she continue small frequent sips of protein drinks. History of gastrectomy 654792614 Z90.3 s/p Tori-s 10/16/24 with continued struggles including nausea vomiting p.o. intake.Carmen thorne had upper GIPatient will be scheduled for upper endoscopy for further evaluation Epigastric pain 71030908 R10.13 Advised patient to continue omeprazole . [...] atient is advised to go to this [facility] for any acute worsening symptoms [id number] [facility] Bariatric s and Adv Surg [address] [place] [address] [address] [place] [address] 12/27/2024 09:45:05 12/27/2024 11:07:46 Diet education 04480576 Z71.3 [id number] RON Azar [facility] Bariatric s and Adv Surg [address] [place] [address] [address] [place] [address] 12/27/2024 09:47:12 12/27/2024 12:24:19 Gestation period, 13 weeks 58180220 Z3A.[address] Guillen today.Advi sed to continue vitamins. Next labs due January 2025Pt has appt with eligibility manager today to discuss caloric need. Advise minimal 6784-7609 calories daily and 90 g proteinPt has high speed printer operator appt today [place] to establish carePt given copy of recent labs to share with OB History of gastrectomy 841019765 Z90.3 s/p Tori-s 10/16/24Fol lowup with labs January 2025 Health Concerns Section Related Observation LastModified by Organization Detai ls LastModified Time None Recorded Concern Status LastModified by Organization Details LastModified Time None Recorded Payers Encounter Date Sequence Insurance Name Policy Number Policy Sanchez Covered Member ID Sanchez Member ID Guarantor Name 12/27/2024 1 [facility] ([place] REPLAC[place] - [place]) [id number] Penelope Christina [id number] Penelope Christina Notes Date Note Type Note [...] Tori-s 10/16/ UGI (Read as ERIN HOP[facility]) No stricture identified no hiatal [...] to return to work. 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
--- OUTSIDE RECORDS SUMMARY | 2025-02-14 08:51 | XMS_ITS | Encounter Summary ---
Author Organization [facility] Address [facility] [place] [address] Phone Care Team Providers Care Mud Mill Tender Name Role Phone Karishma Torres MD Primary Care Provider [phone] Nola Dowling MD Primary Care Provider Eben Ball MD Primary Care Provide r Encounter Details Date Type Department Care Team (Late st Contact Info) Description 07/26/[address] [id number] Morgan Samaniego MD [facility] [id number] [place] [address] Social History Tobacco Use Types [...] documented as of this encounter Care Teams Mud Mill Tender Relationship Specialty Start Date End Date Karishma Torres MD PCP - General Family Medicine 03/19/20 02/19/21 Nola Dowling MD PCP - General Family Medicine 02/20/21 02/21/24 Eben Ball MD PCP - General Family Medicine 02/22/24 documented as of this encounter
--- OUTSIDE RECORDS SUMMARY | 2025-02-14 08:51 | XMS_ITS | Clinical Summary ---
Author Organization [facility] Address [address] [place] [address] Care Team Providers Care Service Desk Technician Name Role Phone [facility] Primary Care Provider Unav ailable Allergies No known active allergies Medications ibuprofen (ADVIL;MOTRIN) 400 MG tablet Take 1 tablet by mouth every 8 hours as needed for Pain 20 tablet 07/27/2021 Active Active Problems No known active problems Social History Tobacco Use Types Packs/Day Years Used Date Smoking Tobacco: Never Smokeless Tobacco: Never Alcohol Use Standard Drinks/Week Comments No 0 (1 standard drink = 0.6 oz pur e alcohol) Comments No Sex and Gender Information Value Date Recorded Sex Assigned at Not on file Legal Sex Female 7:28 PM EDT Gender Identity Not on file Sexual Orientation Not on file Last Filed Vital Signs Vital Sign Reading Time Taken Comments Blood Pressure 152/77 08/20/2021 1:37 PM EST Pulse 92 08/20/2021 1:37 PM EST Temperature 36.6 C (97.9 F) 08/20/2021 1:37 PM EST Respiratory Rate 18 08/20/2021 1:37 PM EST Oxygen Saturation 98% 08/20/2021 1:37 PM EST Inhaled Oxygen Concentration - - Weight 131.5 kg (290 lb) 08/20/2021 1:37 PM EST Height 170.2 cm (5' 7 ) 08/20/2021 1:37 PM EST Body Mass Index 45.42 08/20/2021 1:37 PM EST Plan of Treatment Not on file Insurance [facility] [place] Care Teams Service Desk Technician Relationship Specialty Start Date End Date [facility] PCP - General 07/29/21
--- NOTE | 2025-02-14 09:00 | US_ITS ---
PROCEDURE: US OB /MATERNAL DETAIL CLINICAL INDICATION: need in 4 wks; 20 week anatomy; placental location COMPARISON: US US OB <= 14 WEEKS FETUS from 12/14/2024 US US OB <= 14 WEEKS FETUS from 12/28/2024 US US OB TRANSVAGINAL from 01/16/2025 US OB FOLLOW UP from 01/16/2025 FINDINGS: Transabdominal sonographic images of the pelvis were obtained. From her established due date she is 20 weeks 2 days. Single viable intrauterine gestation. Cephalic position. Placenta: Posteriorplacenta grade 1. When measured transvaginally, the posterior placenta is 2.46 cm away from the internal os. The previously described subchorionic hemorrhage is now almost completely resolved There is an average amount of fluid. The cervix appears satisfactory. Closed and measuring 4.07 cm in length when measured transvaginally. Complete survey performed and was unremarkable on the submitted images as in PACS. No discrete anomalies identified on survey imaging by technologist. Active fetus. Three-vessel cord with satisfactory umbilical cord insertion. 4- chamber heart noted. Situs, aortic arch, LVOT not well visualized, RVOT, three-vessel view appear normal. Survey of brain & ventricles Unremarkable. Cerebellum, thalamus, choroid plexus, cisterna magna appear normal. Face and neck survey unremarkable. Profile, nasion, lips and nose appeared normal. Diaphragm and chest views unremarkable. Abdomen: Both kidneys noted and unremarkable. Stomach and bladder noted and satisfactory. Spine: Survey of the spine satisfactory with no anomalies identified nor imaged. Cervical, thoracic, lower spine appear normal. Both arms and legs noted. Amniotic Fluid: Adequate. MVP 3.12 cm Measurements: Average ultrasound age 20weeks 0 days. Estimated due date by ultrasound age 1107/04/2025. Estimated weight 330g BPD = 19weeks 4days HC = 19weeks 6days AC = 19weeks 6days FL = 20weeks 4days Growth Percentile= 70 Heart Rate = 150bpm Cerebellum = 20weeks 1day Humerus = 20weeks 2days HC/AC is 1.19 FL/BPD is 0.75 FL/AC is 0.23 IMPRESSION: 1. Viable fetus in the cephalic presentation with a posterior placenta grade 1. The placenta is 2.46 cm away from the internal os when seen transvaginally. 2. The fluid is within normal limits with an MVP 3.12 cm. 3. Anatomical scan appears normal. The LVOT was not well visualized and would suggest a repeat scan in 2-3 weeks. 4. There has been good growth with the fetus currently 78th percentile. Dictated by: Gerber Mcgrath MD 02/15/2025 03:29 Gerber Mcgrath MD in OV 02/15/2025 03:29
== END 2025-02-14 23:59 | disposition home or self-care (01) ==
LOC: RAD 08:48
PROVIDERS: PCP Nurse Practitioner Family; Visit Provider Obstetrics & Gynecology
DX: O16.2 Unspecified maternal hypertension, second trimester (principal); O99.842 Bariatric surgery status complicating pregnancy, second trimester; O43.892 Other placental disorders, second trimester; O09.292 Supervision of pregnancy with other poor reproductive or obstetric history, second trimester; O46.92 Antepartum hemorrhage, unspecified, second trimester; Z3A.20 20 weeks gestation of pregnancy
CPT/HCPCS: 76811; 76830

== ENCOUNTER 2025-03-07 15:56 | Outpatient (CLI) | payer OTHER, SELFPAY ==
--- OUTSIDE RECORDS SUMMARY | 2025-03-07 16:00 | XMS_ITS | Clinical Summary ---
Author Organization [facility] Address [address] [place] [address] Phone Care Team Providers Care Duco Polisher Name Role Phone Pcp, None MD Primary Care Provider Allergies No known active allergies Medications Blood Pressure Monitoring (BLOOD PRESSURE MONITOR/L CUFF) [facility] Check blood pressure three times daily. 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 No mention of abnormal renal anatomy Female infertility 12/05/2018 0 Overview (04/19/2019): 04/19/2019-Pt reports she has been going to an infertility specialist because she has been trying to conceive since she graduated . Elevated blood-pressure read ing, without diagnosis of hypertension 12/05/2018 12/20/2019 Overview (11/22/2019): 04/19/2019-Pt with elevated blood pressure. Retake 123/75 10-25-19: BP 153/88, 147/90: PE1 WNL, 24 hr [...] Charity Thomas Relation Name Status Comments Brother Evaristo Dukes Maternal Grandmother Mother Laura Merritt Sister Charity Thomas Social History Tobacco Use Types Packs/Day Years Used Date Smoking Tobacco: Never Smokeless Tobacco: Never Tobacco Cessation:Counseling Given: No Alcohol Use Standard Drinks/Week Comments Yes 0 (1 standard drink = 0.6 oz pur e alcohol) smirnoff ice twice per year Holden Depression Scale Answer Date Recorded Holden Depression Scale Total 4 12/20/2019 The thought [...] Comments Pap Screening 01/24/2023 01/25/2020 Influenza Vaccine (#1) 2025 5, 05/17/2014, 05/10/2013, Additional history exists DTap,Tdap,and Td [...] 10/09/2021 2:39 PM EST Vaginal itching CYTOLOGY COSTUMED CHARACTER ENTERTAINER Routine 01/25/2020 11:33 AM EDT Pap smear for cervical cancer screening from Last 3 Months or Most Recently Relevant to Health Maintenance Results * CHLAMYDIA & GC RNA AMP (10/09/2021 2:39 PM EST) SPECIMEN SOURCE Urine, Random CENTRAL RECEIVING SPECIMEN TYPE Urine CENTRA L RECEIVING C. TRACHOMATIS BY AMP RNA Not Detected Not Detected [facility] 2 N. GONORRHOEAE BY AMP RNA Not Detected Not Detected [facility] 2 Comment: (NOTE) Testing methodology is lead embedded software engineer mediated amplification (TMA) using the Aptima Combo 2 assay from [employer]. A negative result does not completely rule [...] methodology is available upon request. Tested at: [facility], [address] [place] [address] Urine specimen (specimen) URINE SPECIMEN / Unknown 10/09/2021 2:39 PM EST 10/09/2021 8:49 PM EST us Josué Silva Jr., MD BODY FLUIDS AND STOOLS ORDERABLES Final Result [facility] [id number] [place] [id number] [place] [address] 2 * (ABNORMAL) CYTOLOGY COSTUMED CHARACTER ENTERTAINER (01/25/2020 11:33 AM EDT) CYTOLOGY-COSTUMED CHARACTER ENTERTAINER CYTOLOGY GYNECOLOGICAL REPORT Name: PENELOPE MERRITT#: [id number] Case #: [id number] Final Cytologic Diagnosis A. Cervical/Endocervic al thinprep pap: Adequacy: Satisfactory for evaluation, endocervical transformation zone component present. Interpretation: Epithelial cell abnormality: Low-grade squamous intraepithelial lesion. This specimen has been analyzed by the ThinPrep Imaging System ([employer] an automated imaging and review system, which assists the hydrometer calibrator and/or pathologist in evaluation of cells on Thinprep Pap tests. Flavia Up Electronically Signed Out By Diana Guillen MD Source of Specimen(s) A: Cervical/Endocervic al thinprep pap Clinical History Date of Last Menstrual Period: 01/03/2020 Signed out at [facility], [address] [place] [address] [facility] Non-Formatted Report (A) [facility] 01/25/2020 11:3 3 AM EDT 01/26/2020 3:41 PM EDT Gordo Trejo MD PATHOLOGY/CYTOLOGY ORDERAB LES Final Result [facility] [address] [place], [place] [id number] from Last 3 Months or Most Recently Relevant to Health Maintenance Advance Directives * Full Code (Latest Code Status on File) Date Activated Date Inactivated Comments 11/23/2019 12:21 AM 11/24/2019 2:14 PM * Full Code Date Activated Date Inactivated Comments 11/22/2019 10:21 AM 11/23/2019 12:20 AM Care Teams Duco Polisher Relationship Specialty Start Date End Date Pcp, MD Nagi No Address [place], [place] PCP - General Internal Medicine 02/26/25
--- OUTSIDE RECORDS SUMMARY | 2025-03-07 16:00 | XMS_ITS | Encounter Summary ---
Author Organization [facility] Address [facility] [place] [address] Phone Care Team Providers Care Rabble Furnace Tender Name Role Phone Karishma Torres MD Primary Care Provider [phone]- [phone] Nola Dowling MD Primary Care Provider Eben Ball MD Primary Care Provide r Pcp, Nagi HERNANDEZ Primary Care Provider [phone] Encounter Details Date Type Department Care Team (Late st Contact Info) Description 07/26/[address] [address] Morgan Samaniego MD [address] [place], [place] [address]e [id number] [place] [address] Social History Tobacco Use Types [...] documented as of this encounter Care Teams Rabble Furnace Tender Relationship Specialty Start Date End Date Karishma Torres MD PCP - General Family Medicine 03/19/20 02/19/21 Nola Dowling MD PCP - General Family Medicine 02/20/21 02/21/24 Eben Ball MD PCP - General Family Medicine 02/22/24 02/25/25 PcpNagi MD No Address [place], [place] PCP - General Internal Medicine 02/26/25 documented as of this encounter
--- OUTSIDE RECORDS SUMMARY | 2025-03-07 16:00 | XMS_ITS | Continuity of Care Document ---
Author Organization [place] - [place] [facility] Address [address] [place] [address] Care Team Providers Care Edger Machine Setter Name Role Phone KARLOS CHESTER Primary Care Provider Assessment No assessment recorded. Plan of Treatment Reminders Order Date Submit Date Provider Last Modified By Organization Details Last Modified Time Details Appointments OV EST 20 2024 11:00A ANAIS Sinclair Not available Not available Not available Lab vitamin D, 25-hydro xy, total, serum 2024 025 [facility], [address], [address], [place], [address], 02/16/2025 18:37:46 copper, serum or plasma 2024 025 [facility], [address], [address], [place], [address], 02/16/2025 18:37:49 selenium , quantita tive, blood 2024 025 [facility], [address], [address], [place], [address], 02/16/2025 18:37:52 prealbum in, serum 2024 025 [facility], [address], [address], [place], [address], 02/16/2025 18:37:51 zinc, serum or plasma 2024 025 [facility], [address], [address], [place], [address], 02/16/2025 18:37:50 folate, serum 2024 025 [facility], [address], [address], [place], [address], 02/16/2025 18:37:44 thiamine , QN, blood 2024 025 [facility], [address], [address], [place], [address], 02/16/2025 18:37:47 methylma lonate, QN, serum or plasma 2024 025 [facility], [address], [address], [place], [address], 02/16/2025 18:37:48 iron + TIBC + ferritin , serum 2024 025 [facility], [address], [address], [place], [address], 02/16/2025 18:37:38 CBC w/ auto diff 2024 025 [facility], [address], [address], [place], [address], 02/16/2025 18:37:40 CMP, serum or plasma 2024 025 [facility], [address], [address], [place], [address], 02/16/2025 18:37:42 vitamin E, serum 2024 025 [facility], [address], [address], [place], [address], 02/16/2025 18:37:43 vitamin A (retinol ), serum 2024 025 [facility], [address], [address], [place], [address], 02/16/2025 18:37:45 TSH + free T4, serum 2024 025 [facility], [address], [address], [place], [address], 02/16/2025 18:37:39 Referral None recorded . Procedures None recorded . Surgeries None recorded . Imaging None recorded . Medication Orders None recorded . Patient TargetsNo targets recorded. Patient InstructionsNo instructions recorded. Reason for Referral None Reported. Problems Name Problem SNOMED Code Status Onset Date Resolution Date Notes Provider Name and Address Organization Details Recorded Time Essential hypertensi on 83665067 Active [address], [place], [address] , [place] [facility] [place] 4 12:30:28 Obesity 430408008 Active [address] , [place], [address] , [place] [facility] [facility] [place] 4 12:30:50 Disorder of function of stomach 246812119 Active [address], [place], [address] , [place] [facility] [facility] [place] 4 12:30:50 Impaired glucose tolerance 1375628 Active [address] [place], [address] , [place] [facility] [facility] [place] 4 12:31:02 Postoperat nicholas pain 011769456 Active [address], [address] , [place] [facility] [place] 5 08:04:37 Contact dermatitis 94869394 Active 2024 [address] [facility], [place], [address] , [place] [facility] [place] 5 10:32:01 Nausea 426211646 Active 2024 [address] , [place], [address] , [place] [facility] [facility] [place] 5 09:06:20 Nausea and vomiting 63190823 Active 2024 [address] , [place], [address] , [place] [facility] [facility] [place] 5 10:19:41 Bilious vomiting 86078009 Active 20[place], [address] , [place] [facility] [facility] [place] 5 09:06:37 Mild dehydratio n 7381990321570 Active 20[place], [address] , [place] [facility] [facility] [place] 5 09:09:44 Intentiona l weight loss 833771218 Active 20[place], [address] , [place] [facility] [place] 5 09:06:38 Body mass index 40+ - severely obese 355294522 Active 20[place], [address] , [place] [facility] [facility] [place] 5 09:07:05 Severe obesity 8624765533206 4 Active [address], [address] , [place] [facility] [facility] [place] 5 09:07:24 Nutritiona l deficiency state 33820316 Active 2024 A[address], [place], [address] , [place] [facility] [place] 5 10:04:26 Epigastric pain 78050933 Active [address], [place], [address] , [place] [facility] [place] 5 10:16:35 Gestation period, 13 weeks 04028240 Active [address], [place], [address] , [place] [facility] [place] 5 10:26:24 Gestation period, 19 weeks 97242443 Active [address], [place], [address] , [place] [facility] [place] 5 13:38:05 Protein level - finding 859586038 Active 2024 ANAIS [address], [place], [address] , [place] [facility] [place] 5 13:39:22 Vitamin D deficiency 64645694 Active [address], [place], [address] , [place] [facility] [place] 5 13:40:16 Paresthesi a of upper limb 03041680 Active [address], [place], [address] , [place] [facility] [facility] [place] 4 15:38:11 Problem Notes None recorded. Procedures Surgical History Date Name Laterality Status Provider Name and Address Organization Details Recorded Time 10/16/19 25 procedure on duodenum completed Parris Torres [facility] & [place] 11/09/2024 08:47:34 12/09/19 24 EMG/ Nerve Conduction Study completed Raquel Guillen DO [address], [place], [address], [facility] & [place] 12/09/2023 15:38:04 Cholecystectomy completed ANAIS Azar [address], [place], [address], [facility] & [place] 07/04/2024 12:57:53 extraction of wisdom tooth completed Parris Torres [facility] & [place] 07/03/2024 15:07:44 Tonsillectomy completed Parris Torres [facility] & [place] 07/03/2024 15:07:52 procedure on ganglion cyst completed Stephanie Castro [facility] & [place] 10/04/2024 07:53:08 Imaging [...] Body weight Body temperature Heart rate Systolic And Diastolic Provider Name and Address Organization Details Last Updated DateTime 170.18 cm 38.1 kg/m2 549266. 66 g 97.9 [degF] 99 /min 134/89 mm[Hg] Parrisestrada Torres [facility] [place] 13:17:54 Social History Question Answer Notes LastModified by [employer] Details LastModified Time Tobacco Smoking Status Never Smoker [facility]ris [facility], [facility] & [place] 07/03/2024 15:12:10 What Is Your Level Of Caffeine Consumption? Occasional [email or web address] Information not available 07/04/2024 Sex: Female Functional Status Question Answer Note LastModified by [employer] Details LastModified Time Do you use any illicit or recreational drugs? No [email or web address] Information not available 07/03/2024 What is your level of alcohol consumption? Occasional [email or web address] Information not available 07/03/2024 Mental Status None recorded. Family History Relationship Description Onset Age of this Age Resolved Age Notes LastModified by Organization Details LastModified Time Father Hypertensive disorder [email or web address] Not available 06/2024 15:12:25 Father Hypercholest erolemia [email or web address] Not available 06/2024 15:12:51 Mother Hypertensive disorder [email or web address] Not available 06/2024 15:12:25 Mother Hypercholest erolemia [email or web address] Not available 06/2024 15:12:51 Mother Asthma [email or web address] Not availabl e 07/04/2024 13:49:15 Mother Chronic obstructive pulmonary disease [email or web address] Not available 06/2024 15:13:21 Maternal Grandmother Hypertensive disorder [email or web address] Not available 06/2024 15:12:25 Maternal Grandmother Chronic obstructive pulmonary disease [email or web address] Not available 06/2024 15:13:21 Maternal Grandfather Malignant neoplasm of lung Not available 06/23 13:49:15 Brother Asthma [email or web address] Not availab le 07/04/2024 13:49:15 Sister Asthma [email or web address] Not availabl e 07/04/2024 13:49:15 Medical History [...] SNOMED-CT Code Diagnosis ICD10 Code Diagnosis Note [id number] ANAIS Azar [facility] Adv Surg [address] [place] [address] 02/05/2025 13:13:06 02/05/2025 13:59:10 Gestation period, 19 weeks 86350955 Z3A.19 is progressin g well. Patient has a follow-up with obstetrici an on 02/07/2025 We are drawing labs today and we shared these with her obstetrici an. Nausea 241051261 R11.0 Patient has prescripti on of Zofran. She is to use this as needed. Nutritiona l assessment 629358020 Z00.8 Encouraged patient track calories and protein. Advised 12-1500 calories and 80 g of protein daily.Evita ent declines dietitian visit todayPatie nt is to continue vitamin supplement ation. We are checking bariatric vitamin panel will contact patient to correct any deficienci es History of gastrectomy 323993956 Z90.3 Advised qid intake 50% protein 8754-0368 calories/d y less than 100 carbs/dy Patient is status post bariatric surgery and at increased risk for vitamin deficienci es and malnutriti on. Bariatric vitamin panel ordered today. Patient will be contacted to correct any vitamin deficienci es. At increas ed risk of nutritional deficit 760103370 Z91.89 Protein le eugene - finding 977083695 R79.89 Vitamin D deficiency 347 07598 E55.9 Health Concerns Section Related Observation LastModified by Organization Detai ls LastModified Time None Recorded Concern Status LastModified by Organization Details LastModified Time None Recorded Payers Encounter Date Sequence Insurance Name Policy Number Policy Sanchez Covered Member ID Sanchez Member ID Guarantor Name 02/05/2025 1 [facility] - [place] Penelope Christina [id number] Penelope Christina Notes Date Note Type Note [...] she is doing well. She states her assistant administrator has her this the subchorionic hematoma is [...] Jem-s 10/16/ UGI (Read as [facility]) No stricture identified no hiatal hernia [...] to return to work. 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
--- OUTSIDE RECORDS SUMMARY | 2025-03-07 16:00 | XMS_ITS | Encounter Summary ---
Author Organization [facility] Address [facility] [place] [address] [address] Phone Care Team Providers Care Tin Flopper Name Role Phone Karishma Torres MD Primary Care Provider [phone] Nola Dowling MD Primary Care Provider Eben Ball MD Primary Care Provide r Pcp, Nagi HERNANDEZ Primary Care Provider Encounter Details Date Type Department Care Team (Late st Contact Info) Description 07/27/[address] [address] Morgan Samaniego MD [address] [place], [place] [address]e [id number] [place] [address] Social History Tobacco Use Types [...] documented as of this encounter Care Teams Tin Flopper Relationship Specialty Start Date End Date Karishma Torres MD PCP - General Family Medicine 03/19/20 02/19/21 Nola Dowling MD PCP - General Family Medicine 02/20/21 02/21/24 Eben Ball MD PCP - General Family Medicine 02/22/24 02/25/25 PcpNagi MD No Address [place], [place] PCP - General Internal Medicine 02/26/25 documented as of this encounter
--- OUTSIDE RECORDS SUMMARY | 2025-03-07 16:00 | XMS_ITS | Encounter Summary ---
Author Organization [employer] [facility] Address [facility] [place] [address] Phone Care Team Providers Care Math And Science Instructor Name Role Phone Karishma Torres MD Primary Care Provider [phone] Nola Dowling MD Primary Care Provider Eben Ball MD Primary Care Provide r PcpNagi MD Primary Care Provider [phone] Encounter Details Date Type Department Care Team (Late st Contact Info) Description 11/22/2019 OB Documents [facility] Care Program [address] [place] [phone] [facility] [place] [address] Social History Tobacco Use Types Packs/Day Years [...] documented as of this encounter Care Teams Math And Science Instructor Relationship Specialty Start Date End Date Karishma Torres MD PCP - General Family Medicine 03/19/20 02/19/21 Nola Dowling MD PCP - General Family Medicine 02/20/21 02/21/24 Eben Ball MD PCP - General Family Medicine 02/22/24 02/25/25 Pcp, MD Nagi No Address [place], [place] PCP - General Internal Medicine 02/26/25 documented as of this encounter
--- OUTSIDE RECORDS SUMMARY | 2025-03-07 16:00 | XMS_ITS | Encounter Summary ---
Author Organization [facility] Address [facility] [place] [address] Phone Care Team Providers Care Rater Associate Name Role Phone Karishma Torres MD Primary Care Provider [phone]- [phone] Nola Dowling MD Primary Care Provider Eben Ball MD Primary Care Provide r PcpNagi MD Primary Care Provider [phone] Encounter Details Date Type Department Care Team (Late st Contact Info) Description 04/19/2019 OB Documents TH Care Program [address] [place] [phone] [facility], [facility] [place] [address] Social History Tobacco Use Types Packs/Day Years [...] documented as of this encounter Care Teams Rater Associate Relationship Specialty Start Date End Date Karishma Torres MD PCP - General Family Medicine 03/19/20 02/19/21 Nola Dowling MD PCP - General Family Medicine 02/20/21 02/21/24 Eben Ball MD PCP - General Family Medicine 02/22/24 02/25/25 PcpNagi MD No Address [place] PCP - General Internal Medicine 02/26/25 documented as of this encounter
--- OUTSIDE RECORDS SUMMARY | 2025-03-07 16:00 | XMS_ITS | Encounter Summary ---
Author Organization [facility] P Address [facility] [place] [address] Phone Care Team Providers Care Sawmilling Operator Name Role Phone Karishma Torres MD Primary Care Provider [phone]- [phone] Nola Dowling MD Primary Care Provider Eben Ball MD Primary Care Provide r Pcp, Nagi HERNANDEZ Primary Care Provider [phone] Encounter Details Date Type Department Care Team (Late st Contact Info) Description 11/04/2020 E-Visit [facility] - [address] [place] [address] [place] [id number] [place] [address] RE: RE: Other Topic (See message) Social History Tobacco Use Types Packs/Day Years Used Date Smoking Tobacco: Never Smokeless Tobacco: Never Alcohol Use Standard Drinks/Week Comments Yes 0 (1 standard drink = 0.6 oz pur e alcohol) smirnoff ice twice per year [place] Depression Scale Answer Date Recorded [place] Depression Scale Total 4 12/20/2019 The thought [...] 2:25 PM EDT Debbie Howell, Registered Nurse documented as of this encounter [...] on filedocumented in this encounter Care Teams Sawmilling Operator Relationship Specialty Start Date End Date Kraishma Torres MD PCP - General Family Medicine 03/19/20 02/19/21 Nola Dowling MD PCP - General Family Medicine 02/20/21 02/21/24 Eben Ball MD PCP - General Family Medicine 02/22/24 02/25/25 Pcp, MD Nagi No Address [place], [place] PCP - General Internal Medicine 02/26/25 documented as of this encounter
--- OUTSIDE RECORDS SUMMARY | 2025-03-07 16:00 | XMS_ITS | Clinical Summary ---
Author Organization [facility] Address [address] [place] [address] Care Team Providers Care Ceramics Artist Name Role Phone [facility] Primary Care Provider Unav ailable Allergies No [...] Plan of Treatment Not on file Insurance [facility] [place] Care Teams Ceramics Artist Relationship Specialty Start Date End Date [facility] PCP - General 07/29/21
--- OUTSIDE RECORDS SUMMARY | 2025-03-07 16:00 | XMS_ITS | Referral Summary ---
Author Organization [facility] Address [address] [place] [address] Phone Care Team Providers Care Field Artillery Cannoneer Name Role Phone Pcp, None MD Primary Care Provider [phone] Allergies No known active allergies Medications Blood Pressure Monitoring (BLOOD PRESSURE MONITOR/L CUFF) [place] Check blood pressure three times daily. Call [...] N/V, has been taking B6, did not hand picker [employer] bc no insurance, instructed pt to [...] e alcohol) smirnoff ice twice per year [place] Depression Scale Answer Date Recorded [place] Depression Scale Total 4 12/20/2019 The thought [...] 10/09/2021 2:39 PM EST Vaginal itching CYTOLOGY INVENTORY AND PRICING ASSOCIATE Routine 01/25/2020 11:33 AM EDT Pap smear for cervical cancer screening from Last 3 Months or Most Recently Relevant to Health Maintenance Results * CHLAMYDIA & GC RNA AMP (10/09/2021 2:39 PM EST) SPECIMEN SOURCE Urine, Random CENTRAL RECEIVING SPECIMEN TYPE Urine CENTRA L RECEIVING C. TRACHOMATIS BY AMP RNA Not Detected Not Detected [facility] 2 N. GONORRHOEAE BY AMP RNA Not Detected Not Detected [facility] 2 Comment: (NOTE) Testing methodology is audit tech mediated amplification (TMA) using the Aptima Combo 2 assay from [employer]. A negative result does not completely rule [...] upon request. Tested at: [facility], [address] [place] [address] Urine specimen (specimen) URINE SPECIMEN / Unknown 10/09/2021 2:39 PM EST 10/09/2021 8:49 PM EST Josué Silva Jr., MD BODY FLUIDS AND STOOLS ORDERABLES Final Result [facility] [address] [place] [address] CENTRAL RECEIVING [id number] [place] [address] 2 * (ABNORMAL) CYTOLOGY INVENTORY AND PRICING ASSOCIATE (01/25/2020 11:33 AM EDT) CYTOLOGY-INVENTORY AND PRICING ASSOCIATE CYTOLOGY GYNECOLOGICAL REPORT Name: EPNELOPE MERRITT#: [id number] Case #: [id number] Final Cytologic Diagnosis A. Cervical/Endocervic al thinprep pap: Adequacy: Satisfactory for evaluation, endocervical transformation zone component present. Interpretation: Epithelial cell abnormality: Low-grade squamous intraepithelial lesion. This specimen has been analyzed by the ThinPrep Imaging System ([employer] an automated imaging and review system, which assists the commissioning specialist and/or pathologist in evaluation of cells on Thinprep Pap tests. [facility] Electronically Signed Out By Diana Guillen MD Source of Specimen(s) A: Cervical/Endocervic al thinprep pap Clinical History Date of Last Menstrual Period: 01/03/2020 Signed out at [facility], [address] [place] [address] [facility] Non-Formatted Report (A) [facility] 01/25/2020 11:3 3 AM EDT 01/26/2020 3:41 PM EDT us Gordo Trejo MD PATHOLOGY/CYTOLOGY ORDERAB LES Final Result [facility] [address] [place] [address] from Last 3 Months or Most Recently Relevant to Health Maintenance Care Teams Field Artillery Cannoneer Relationship Specialty Start Date End Date Pcp, None, No Address [place], [place] PCP - General Internal Medicine 02/26/25
[2025-03-07 16:04] VITALS: BMI 38.0
[2025-03-07 16:10] VITALS: BP 116/72; PULSE 99; RESP 17; TEMP 37.2; O2SAT 100; BMI 37.9
[2025-03-07] MEDS: MVI, ADULT NO.1 WITH VIT K 10 ML, THIAMINE HCL 100 MG, MAGNESIUM SULFATE 2 GM in LACTAT... 125 ML IV (16:39)
[2025-03-07] MEDS: SODIUM CHLORIDE 0.9% 10ML FLUSH SYRINGE 10 ML IV (16:40)
[2025-03-07 16:54] LABS: Hematocrit 35.4 % (37.0-47.0); Hemoglobin 12.3 g/dL (12.2-16.2); Immature Granulocytes % 0.3 %; Mean Corpuscular HGB Conc 34.7 g/dL (31.8-35.4); Mean Corpuscular Hemoglobin 30.6 pg (27.0-31.2); Mean Corpuscular Volume 88.1 fl (81-99); Nucleated Red Blood Cells % 0 %; Platelet Count 243 K/mm3 (142-424); Red Blood Count 4.02 M/mm3 (4.20-5.40); Red Cell Distribution Width-SD 45.4 fL; White Blood Count 7.5 K/mm3 (4.8-10.8)
[2025-03-07 17:13] LABS: Albumin Level 3.9 g/dl (3.5-5.0); Albumin/Globulin Ratio 1.2 (1.1-1.8); Alkaline Phosphatase 77 U/L (38-126); Anion Gap 10.9 mEq/L (5-15); Bilirubin,Total 0.7 mg/dl (0.2-1.3); Blood Urea Nitrogen 6 mg/dl (7-17); Calcium 9.7 mg/dl (8.4-10.2); Carbon Dioxide 19 mmol/L (22.0-30.0); Chloride 108 mmol/L (98-107); Creatinine Clearance Estimated 360 mL/min (50-200); Creatinine,Serum 0.40 mg/dl (0.52-1.04); Estimated Glomerular Filt Rate 193 ml/min (>60); GFR (African American) 233 ML/MIN (>60); Globulin 3.2 g/dL (1.3-3.2); Glucose 96 mg/dl (74-100); Magnesium 1.6 mg/dl (1.6-2.3); Potassium 3.9 mmoL/L (3.5-5.1); Sodium 134 mmol/L (136-145); Total Protein,Serum 7.1 g/dl (6.3-8.2)
[2025-03-07 17:55] LABS: Alanine Aminotransferase 16 U/L (12-78); Aspartate Amino Transferase 32 U/L (14-36)
== END 2025-03-07 17:55 | disposition home or self-care (01) ==
LOC: OBOUT 15:58 → OB 15:58
PROVIDERS: PCP Nurse Practitioner Family; Visit Provider Obstetrics & Gynecology
DX: Z34.92 Encounter for supervision of normal pregnancy, unspecified, second trimester (principal); Z3A.23 23 weeks gestation of pregnancy
CPT/HCPCS: 80053; 83735; 85025; 96360; 99212; G0463; J3411; J3475; J7120

== ENCOUNTER 2025-03-08 14:23 | Outpatient (CLI) | payer OTHER, SELFPAY ==
--- OUTSIDE RECORDS SUMMARY | 2025-03-08 14:25 | XMS_ITS | Clinical Summary ---
Author Organization [facility] Address [address] [place] [address] Phone Care Team Providers Care Hospital Coder Name Role Phone Pcp, None MD Primary Care Provider [phone] Allergies No known active allergies Medications Blood Pressure Monitoring (BLOOD PRESSURE MONITOR/L CUFF) [facility] Check blood pressure three times daily. Call [...] e alcohol) smirnoff ice twice per year [place] Depression Scale Answer Date Recorded [place] Depression Scale Total 4 12/20/2019 The thought [...] 10/09/2021 2:39 PM EST Vaginal itching CYTOLOGY RESTORATION TECHNICIAN Routine 01/25/2020 11:33 AM EDT Pap smear for cervical cancer screening from Last 3 Months or Most Recently Relevant to Health Maintenance Results * CHLAMYDIA & GC RNA AMP (10/09/2021 2:39 PM EST) SPECIMEN SOURCE Urine, Random CENTRAL RECEIVING SPECIMEN TYPE Urine CENTRA L RECEIVING C. TRACHOMATIS BY AMP RNA Not Detected Not Detected [facility] 2 N. GONORRHOEAE BY AMP RNA Not Detected Not Detected [facility] 2 Comment: (NOTE) Testing methodology is cue worker mediated amplification (TMA) using the Aptima Combo 2 assay from [employer]. A negative result does not completely rule [...] methodology is available upon request. Tested at: [facility], [address] [place] [address] Urine specimen (specimen) URINE SPECIMEN / Unknown 10/09/2021 2:39 PM EST 10/09/2021 8:49 PM EST us Josué Silva Jr., MD BODY FLUIDS AND STOOLS ORDERABLES Final Result [facility] [address] [place] [id number] [place] [address] 2 * (ABNORMAL) CYTOLOGY RESTORATION TECHNICIAN (01/25/2020 11:33 AM EDT) CYTOLOGY-RESTORATION TECHNICIAN CYTOLOGY GYNECOLOGICAL REPORT Name: PENELOPE MERRITT#: [id number] Case #: [id number] Final Cytologic Diagnosis A. Cervical/Endocervic al thinprep pap: Adequacy: Satisfactory for evaluation, endocervical transformation zone component present. Interpretation: Epithelial cell abnormality: Low-grade squamous intraepithelial lesion. This specimen has been analyzed by the ThinPrep Imaging System ([employer] an automated imaging and review system, which assists the textile artist and/or pathologist in evaluation of cells on Thinprep Pap tests. Flavia Up Electronically Signed Out By Diana Guillen MD Source of Specimen(s) A: Cervical/Endocervic al thinprep pap Clinical History Date of Last Menstrual Period: 01/03/2020 Signed out at [facility], [address] [place] [address] [facility] Non-Formatted Report (A) [facility] 01/25/2020 11:3 3 AM EDT 01/26/2020 3:41 PM EDT Gordo Trejo MD PATHOLOGY/CYTOLOGY ORDERAB LES Final Result [facility] [address] [place], [place] [id number] from Last 3 Months or Most Recently Relevant to Health Maintenance Advance Directives * Full Code (Latest Code Status on File) Date Activated Date Inactivated Comments 11/23/2019 12:21 AM 11/24/2019 2:14 PM * Full Code Date Activated Date Inactivated Comments 11/22/2019 10:21 AM 11/23/2019 12:20 AM Care Teams Hospital Coder Relationship Specialty Start Date End Date Pcp, MD Nagi No Address [place], [place] PCP - General Internal Medicine 02/26/25
--- OUTSIDE RECORDS SUMMARY | 2025-03-08 14:25 | XMS_ITS | Encounter Summary ---
Author Organization [facility] SBO AND TP P Address [facility] [address] [place] [address] Phone Care Team Providers Care Diesel Engineer Name Role Phone Karishma Torres MD Primary Care Provider [phone] Nola Dowling MD Primary Care Provider Eben Ball MD Primary Care Provide r PcpNagi MD Primary Care Provider [phone] Encounter Details Date Type Department Care Team (Late st Contact Info) Description 11/22/2019 OB Documents [facility] Care Program [address] [place] [address] [phone] [facility] [place] [address] Social History Tobacco Use Types Packs/Day Years [...] documented as of this encounter Care Teams Diesel Engineer Relationship Specialty Start Date End Date Karishma Torres MD PCP - General Family Medicine 03/19/20 02/19/21 Nola Dowling MD PCP - General Family Medicine 02/20/21 02/21/24 Eben Ball MD PCP - General Family Medicine 02/22/24 02/25/25 Pcp, MD Nagi No Address [place], [place] PCP - General Internal Medicine 02/26/25 documented as of this encounter
--- OUTSIDE RECORDS SUMMARY | 2025-03-08 14:25 | XMS_ITS | Encounter Summary ---
Author Organization [facility] SBO AND TP P Address [facility] [place] [address] Phone Care Team Providers Care Floor Worker Name Role Phone Karishma Torres MD Primary Care Provider [phone] Nola Dowling MD Primary Care Provider Eben Ball MD Primary Care Provide r Pcp, Nagi HERNANDEZ Primary Care Provider Encounter Details Date Type Department Care Team (Late st Contact Info) Description 07/26/[address] [address] Morgan Samaniego MD [address] [place], [place] [address]e [id number] [place] [address] Social History Tobacco Use Types [...] documented as of this encounter Care Teams Floor Worker Relationship Specialty Start Date End Date Karishma Torres MD PCP - General Family Medicine 03/19/20 02/19/21 Nola Dowling MD PCP - General Family Medicine 02/20/21 02/21/24 Eben Ball MD PCP - General Family Medicine 02/22/24 02/25/25 PcpNagi MD No Address [place], [place] PCP - General Internal Medicine 02/26/25 documented as of this encounter
--- OUTSIDE RECORDS SUMMARY | 2025-03-08 14:25 | XMS_ITS | Encounter Summary ---
Author Organization [employer] SBO AND TP P Address [facility] [place] [address] Phone Care Team Providers Care Lock Stitch Channeler Name Role Phone Karishma Torres MD Primary Care Provider [phone] Nola Dowling MD Primary Care Provider Eben Ball MD Primary Care Provide r PcpNagi MD Primary Care Provider [phone] Encounter Details Date Type Department Care Team (Late st Contact Info) Description 04/19/2019 OB Documents TH Care Program [address] [place] [address] [phone] [facility], [facility] [place] [address] Social History Tobacco Use Types Packs/Day Years [...] as of this encounter Care Teams Lock Stitch Channeler Relationship Specialty Start Date End Date Karishma Torres MD PCP - General Family Medicine 03/19/20 02/19/21 Nola Dowling MD PCP - General Family Medicine 02/20/21 02/21/24 Eben Ball MD PCP - General Family Medicine 02/22/24 02/25/25 PcpNagi MD No Address [place], [place] PCP - General Internal Medicine 02/26/25 documented as of this encounter
--- OUTSIDE RECORDS SUMMARY | 2025-03-08 14:25 | XMS_ITS | Encounter Summary ---
Author Organization [facility] SBO AND TP P Address [facility] [place] [address] Phone Care Team Providers Care Farm Boss Name Role Phone Karishma Torres MD Primary Care Provider [phone] Nola Dowling MD Primary Care Provider Eben Ball MD Primary Care Provide r Pcp, Nagi HERNANDEZ Primary Care Provider [phone] Encounter Details Date Type Department Care Team (Late st Contact Info) Description 11/04/2020 E-Visit [facility] [address] [place] [address] [place] [id number] [place] [address] RE: RE: Other Topic (See message) Social History Tobacco Use Types Packs/Day Years Used Date Smoking Tobacco: Never Smokeless Tobacco: Never Alcohol Use Standard Drinks/Week Comments Yes 0 (1 standard drink = 0.6 oz pur e alcohol) smirnoff ice twice per year [place] Depression Scale Answer Date Recorded [place] Depression Scale Total 4 12/20/2019 The thought [...] on filedocumented in this encounter Care Teams Farm Boss Relationship Specialty Start Date End Date Karishma Torres MD PCP - General Family Medicine 03/19/20 02/19/21 Nola Dowling MD PCP - General Family Medicine 02/20/21 02/21/24 Eben Ball MD PCP - General Family Medicine 02/22/24 02/25/25 Pcp, MD Nagi No Address [place], [place] PCP - General Internal Medicine 02/26/25 documented as of this encounter
--- OUTSIDE RECORDS SUMMARY | 2025-03-08 14:25 | XMS_ITS | Encounter Summary ---
Author Organization [facility] SBO AND TP P Address [facility] [place] [address] Phone Care Team Providers Care Forepart Reducer Name Role Phone Karishma Torres MD Primary Care Provider [phone] Nola Dowling MD Primary Care Provider Eben Ball MD Primary Care Provide r Pcp, Nagi HERNANDEZ Primary Care Provider [phone] Encounter Details Date Type Department Care Team (Late st Contact Info) Description 07/27/[address] [address] Morgan Samaniego MD [address] [place], [place] [address]e [id number] [place] [address] Social History Tobacco Use Types [...] documented as of this encounter Care Teams Forepart Reducer Relationship Specialty Start Date End Date Karishma Torres MD PCP - General Family Medicine 03/19/20 02/19/21 Nola Dowling MD PCP - General Family Medicine 02/20/21 02/21/24 Eben Ball MD PCP - General Family Medicine 02/22/24 02/25/25 PcpNagi MD No Address [place], [place] PCP - General Internal Medicine 02/26/25 documented as of this encounter
--- OUTSIDE RECORDS SUMMARY | 2025-03-08 14:25 | XMS_ITS | Referral Summary ---
Author Organization [facility] Address [address] [place] [address] Phone Care Team Providers Care Group Marketing Vp Name Role Phone Pcp, None MD Primary Care Provider [phone] Allergies No known active allergies Medications Blood Pressure Monitoring (BLOOD PRESSURE MONITOR/L CUFF) [facility] Check blood pressure three times daily. 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 TRACHOMATIS BY AMP RNA Not Detected Not Detected [facility] 2 N. GONORRHOEAE BY AMP RNA Not Detected Not Detected [facility] 2 Comment: (NOTE) Testing methodology is plant director mediated amplification (TMA) using the Aptima Combo 2 assay from [employer]. A negative result does not completely rule [...] upon request. Tested at: [facility], [address] [place] [address] Urine specimen (specimen) URINE SPECIMEN / Unknown 10/09/2021 2:39 PM EST 10/09/2021 8:49 PM EST Josué Silva Jr., MD BODY FLUIDS AND STOOLS ORDERABLES Final Result [facility] [address] [place] [address] CENTRAL RECEIVING [id number] [place] [address] 2 * (ABNORMAL) CYTOLOGY SEX WORKER OR ESCORT (01/25/2020 11:33 AM EDT) CYTOLOGY-SEX WORKER OR ESCORT CYTOLOGY GYNECOLOGICAL REPORT Name: PENELOPE MERRITT#: [id number] Case #: [id number] Final Cytologic Diagnosis A. Cervical/Endocervic al thinprep pap: Adequacy: Satisfactory for evaluation, endocervical transformation zone component present. Interpretation: Epithelial cell abnormality: Low-grade squamous intraepithelial lesion. This specimen has been analyzed by the ThinPrep Imaging System ([employer] an automated imaging and review system, which assists the mobile home mechanic and/or pathologist in evaluation of cells on Thinprep Pap tests. Flavia Up Electronically Signed Out By Diana Guillen MD Source of Specimen(s) A: Cervical/Endocervic al thinprep pap Clinical History Date of Last Menstrual Period: 01/03/2020 Signed out at [facility], [address] [place] [address] [facility] Non-Formatted Report (A) [facility] 01/25/2020 11:3 3 AM EDT 01/26/2020 3:41 PM EDT us Gordo Trejo MD PATHOLOGY/CYTOLOGY ORDERAB LES Final Result [facility] [address] [place] [address] from Last 3 Months or Most Recently Relevant to Health Maintenance Care Teams Group Marketing Vp Relationship Specialty Start Date End Date Pcp, None, No Address [place], [place] PCP - General Internal Medicine 02/26/25
--- OUTSIDE RECORDS SUMMARY | 2025-03-08 14:26 | XMS_ITS | Clinical Summary ---
Author Organization [facility] Address [address], [address] [place] [address] Care Team Providers Care Costume Shop Manager Name Role Phone [facility] Primary Care Provider Unav ailable Allergies No [...] Plan of Treatment Not on file Insurance [facility] [place] Care Teams Costume Shop Manager Relationship Specialty Start Date End Date [facility] PCP - General 07/29/21
--- NOTE | 2025-03-08 14:30 | US_ITS ---
PROCEDURE: US OB FOLLOW UP CLINICAL INDICATION: cardiac views COMPARISON: US US OB <= 14 WEEKS FETUS from 12/14/2024 US US OB <= 14 WEEKS FETUS from 12/28/2024 US US OB TRANSVAGINAL from 01/16/2025 US US OB /MATERNAL DETAIL from 02/14/2025 FINDINGS: Transabdominal sonographic images of the pelvis were obtained. The following parameters are obtained: From her established due date she is 23weeks 3days Viable fetus in the breech presentation with a posterior placenta grade 1. The cervix measures 3.07 cm heart rate: 143bpm bpm. Average ultrasound age 23 weeks 1 day. Estimated weight 556 grams, 1 lb 4 oz. BPD: 22weeks 5days HC: 23weeks 2days AC: 23weeks 2days FL: 22weeks 6days HC/AC: 1.15 FL/BPD: 0.73 FL/AC: 0.21 Growth percentile: 24 Amniotic fluid: MVP 4.64 cm No obvious anomalies evident. profile seen, stomach, bladder, kidneys, three-vessel cord, four chamber heart appear normal. heart: LVOT, RVOT, three-vessel view and four-chamber view appear normal. IMPRESSION: 1. Viable fetus in the breech presentation with posterior placenta grade 1. 2. The fluid is within normal limits with an MVP 4.64 cm. 3. There has been good interval growth with the fetus currently 24th percentile. 4. Cardiac views are still difficult to obtain due to position but RVOT, LVOT, three-vessel view and four-chamber heart appear to be normal. 5. The rest of the limited anatomical scan appears normal. Dictated by: Gerber Mcgrath MD 03/08/2025 15:31 Gerber Mcgrath MD in OV 03/08/2025 15:31
[2025-03-08 17:04] LABS: Iron 72 ug/dL (37-170); Total Protein,Serum 6.1 g/dl (6.3-8.2)
[2025-03-08 17:08] LABS: Total Iron Binding Capacity 344 ug/dL (265-497)
[2025-03-08 17:35] LABS: Ferritin 99.8 ng/ml (6.24-137)
[2025-03-08 18:02] LABS: Vitamin B12 231 pg/mL (239-931)
[2025-03-08 18:24] LABS: Folate 3.21 ng/mL
[2025-03-09 18:25] LABS: Calcium, Ionized 5.1 mg/dL (4.5-5.6)
[2025-03-13 03:36] LABS: 1,25 Dihydroxy Vitamin D 187 pg/mL (.); 1,25-Dihydroxy, Vitamin D-2 <10 pg/mL (.); 1,25-Dihydroxy, Vitamin D-3 186 pg/mL (.)
== END 2025-03-08 23:59 | disposition home or self-care (01) ==
PROVIDERS: PCP Nurse Practitioner Family; Visit Provider Obstetrics & Gynecology
DX: O09.292 Supervision of pregnancy with other poor reproductive or obstetric history, second trimester (principal); O99.842 Bariatric surgery status complicating pregnancy, second trimester; O32.1XX0 Maternal care for breech presentation, not applicable or unspecified; O46.8X2 Other antepartum hemorrhage, second trimester; O99.212 Obesity complicating pregnancy, second trimester; O99.282 Endocrine, nutritional and metabolic diseases complicating pregnancy, second trimester; E66.01 Morbid (severe) obesity due to excess calories; E61.1 Iron deficiency; E55.9 Vitamin D deficiency, unspecified; R19.7 Diarrhea, unspecified; R11.10 Vomiting, unspecified; R73.03 Prediabetes; Z3A.23 23 weeks gestation of pregnancy
CPT/HCPCS: 36415; 76816; 82330; 82607; 82652; 82728; 82746; 83540; 83550; 84155; 84446; 84590; 84597

== ENCOUNTER 2025-04-09 07:52 | Outpatient (CLI) | payer OTHER, SELFPAY ==
--- OUTSIDE RECORDS SUMMARY | 2017-04-29 08:24 | XMS_ITS | Continuity of Care Document ---
Author Organization [facility] Address [address] [place] [address] Phone Care Team Providers Care Production Maintenance Technician Name Role Phone Bijan Jang DO Unavailable Unavailable Advance Directives Directive Yes / No Effective Date File Name No Information Encounters Encounter Description Practice Location Reason(s) For Visit Diagnoses Date Provider Providers Copied on Encounter [facility], [address], [place], [place], [id number], [place] tel:[phone] [address] [place] [address] No Information 7 Suhail Livingston. [address], [place], [address], [place]. tel:[phone] Family History Family Member Type Diagnosis Age At Onset No Information Immunizations Vaccine Date Status Comments Tdap (Adacel) administered Note: Tdap gi usha by [facility] ; Source: Other Registry Payers Payer name [...]
--- OUTSIDE RECORDS SUMMARY | 2025-02-12 13:37 | XMS_ITS | Encounter Summary ---
Author Organization [facility] Address [address] [place] [address] Care Team Providers Care Curtain Worker Name Role Phone Felipa Her APRN Primary Care Provider Reason for Referral * Diagnostic Imaging (Routine) - Closed Specialty Diagnoses / Procedures Referred By Contac t Referred To Contact Radiology Diagnoses Subchorionic hematoma, antepartum, single or unspecified fetus , unspecified gestational age Previous delivery affecting Status post bariatric surgery Morbid obesity with BMI of 40.0-44.9, adult Procedures [facility] [place] Charly Mckinney MD [address] [place] [address] Phone: tel: fax: Referral ID Status Reason Start Date Expiration Date Visits Re quested Visits Authorized [id number] Closed 12/27/2024 03/28/2026 1 1 Reason for Visit * Diagnostic Imaging (Routine) - Closed Specialty Diagnoses / Procedures Referred By Contac t Referred To Contact Radiology Diagnoses Subchorionic hematoma, antepartum, single or unspecified fetus , unspecified gestational age Previous delivery affecting Status post bariatric surgery Morbid obesity with BMI of 40.0-44.9, adult Procedures [facility] [place] Charly Mckinney MD [address] [facility] [address] Phone: tel: fax: Referral ID Status Reason Start Date Expiration Date Visits Re quested Visits Authorized [id number] Closed 12/27/2024 03/28/2026 1 1 Encounter Details Date Type Department Care Team (Late st Contact Info) Description 02/12/2025 1:37 PM EDT - 02/12/2025 11:59 PM EDT Hospital Encounter [facility] [address] [place] [id number] Charly Mckinney MD [address] [facility] [place] [address] [place] [id number] Subchorionic hematoma, antepartum, single or unspecified fetus; , unspecified gestational age; Previous delivery affecting ; Status post bariatric surgery; Morbid obesity with BMI of 40.0-44.9, adult Discharge Disposition: Home or Self Care Social History Tobacco Use Types Packs/Day Years Used Date Smoking Tobacco: Never Passive Smoke Exposure: Never Smokeless Tobacco: Never Alcohol Use Standard Drinks/Week Comments Never 0 (1 standard drink = 0.6 oz pur e alcohol) PHQ-2 Answer Date Recorded Retired PHQ-9: Brief Depression Severity Measure Score 13 03/15/2024 Estimated Date of Delivery Comme nts Yes 07/02/2025 Date entered milka or to episode creation Sex and Gender Information Value Date Recorded Sex Assigned at Female 12/27/2024 10:29 AM EDT Legal Sex Female 9:22 AM EST Gender Identity Not on file Sexual Orientation Straight 12/27/2024 10 :29 AM EDT documented as of this encounter Medications at Time of Discharge Cholecalciferol (Vitamin D3) 1.25 MG (04439 UT) capsule TAKE ONE CAPSULE BY MOUTH ONCE A WEEK FOR 8 WEEKS. TAKE ON THE SAME DAY EACH WEEK. 01/28/2024 EQ Aspirin Low Dose 81 MG EC tablet Take 1 tablet by mouth Daily. 01/05/2025 EQ Miconazole 7 2 % vaginal cream Insert 1 applicator into the vagina Every Night. 12/24/2024 hydroCHLOROthiazide (HYDRODIURIL) 12.5 MG tablet 1 tablet. 03/30/2023 metoclopramide (REGLAN) 10 MG tablet Take 1 tablet by mouth Every 6 (Six) Hours As Needed. 12/14/2024 metroNIDAZOLE (FLAGYL) 500 MG tablet Take 1 tablet by mouth Every 12 (Twelve) Hours. 12/22/2024 ondansetron ODT (ZOFRAN-ODT) [address] 1 tablet on the tongue Every 6 (Six) Hours As Needed. 11/08/2024 pregabalin (LYRICA) 50 MG capsuleIndications: Fibromyalgia Take 1 capsule by mouth 2 (Two) Times a Day. 60 capsule 2 03/15/2024 MV & Min w/FA-DHA ( GUMMIES PO) Take by mouth Daily. documented as of this encounter Plan of Treatment Not on file documented as of this encounter Procedures Procedure Name Priority Date/Time Associated Diagnosis Comments [facility] Routine 02/12/2025 2:38 PM EDT Subchorionic hematoma, antepartum, single or unspecified fetus , unspecified gestational age Previous delivery affecting Status post bariatric surgery Morbid obesity with BMI of 40.0-44.9, adult documented in this encounter Results * [facility] (02/12/2025 2:38 PM EDT) Anatomical Region Laterality Modality Ultrasound 02/12/2025 1:50 PM EDT Narrative 02/12/2025 2:44 PM EDT PAT NAME: PENELOPE MERRITT MED REC#: [id number] DA: [id number] PAT GEND: F PAT TYPE: O EXAM PATRICK: [id number] REF PHYS [place] Comparison Studies The findings of this study are compared to the prior ultrasound study dated 12/27/24 Patient Status Outpatient Indication ======== subchorionic hemorrhage. Morbid obesity. H/O gestational hypertension. H/O bariatric surgery Maternal Assessment Height 168 cm Height (ft) 5 ft Height (in) 6 in Weight 109 kg Weight (lb) 240 lb BMI 38.62 kg/m Method ======= Transabdominal ultrasound examination. View: Suboptimal view: limited by maternal body habitus ========= Herrera . Number of fetuses: 1 Dating ====== GA by prior assessment 20 w + 0 d CAYLA by prior assessment: 07/02/2025 Ultrasound examination on: 02/12/2025 GA by U/S based upon: AC, BPD, Femur, HC GA by U/S 19 w + 2 d CAYLA by U/S: 07/07/2025 Method of dating: Restore dating from previous exam Previous dating: based on stated CAYLA, selected on 12/27/2024 Agreed CAYLA of previous datin07/02/2025 Assigned: based on stated CAYLA, selected on 12/27/2024 Assigned GA 20 w + 0 d Assigned CAYLA: 07/02/2025 length 280 d Biometry Standard BPD 45.4 mm 19w 5d 38% Hadlock OFD 60.0 mm 20w 5d 76% Meagan HC 168.5 mm 19w 3d 20% Hadlock Cerebellum tr 21.1 mm 20w 0d 77% Hill Nuchal fold 3.1 mm AC 140.2 mm 19w 3d 25% Hadlock Femur 27.7 mm 18w 3d 5% Hadlock Humerus 30.9 mm 20w 2d 64% Meagan HC / AC 1.20 74% Hadlock EFW 271 g 19w 0d 8% Hadlock EFW (lb) 0 lb EFW (oz) 10 oz EFW by: Hadlock (MUR-HR-SS-FL) Extended Tibia 27.3 mm 19w 6d 54% Meagan Fibula 26.7 mm 19w 2d 38% Meagan Foot 30.3 mm 17% Chitty Radius 27.0 mm 20w 0d 53% Meagan Ulna 25.4 mm 19w 1d 14% Meagan Cav. septi pel. tr 5.0 mm Photograph Printer 6.7 mm CM 4.5 mm 33% Nicolaides Nasal bone 5.6 mm Rt Renal pelvis ap 3.9 mm Lt Renal pelvis ap 2.6 mm Head / Face / Neck Cephalic index 0.76 18% Nicolaides Extremities / Bony Struc FL / BPD 0.61 1% Hadlock FL / HC 0.16 <1% Hadlock FL / AC 0.20 6% Hadlock Other Structures FHR 159 bpm General Evaluation Cardiac activity present. FHR 159 bpm. movements present. Presentation breech. Placenta Placental site: posterior. Subchorionic hemorrhage (Size 50.0 mm x 10.0 mm x 24.0 mm). on the anterior wall. Umbilical cord Cord vessels: 3 vessel cord. Insertion site: placental insertion: normal. Amniotic fluid Amount of AF: normal. MVP 4.5 cm. Anatomy Cranium: Appears normal Midline falx: Appears normal Cavum septi pellucidi: Appears normal Cerebellum: Appears normal Cisterna magna: Appears normal Head / Neck Rt lateral ventricle: Appears normal Lt lateral ventricle: Appears normal Rt choroid plexus: Appears normal Lt choroid plexus: Appears normal Vermis: Appears normal Neck: Appears normal Nuchal fold: Appears normal Lips: suboptimal Profile: suboptimal Nose: Appears normal Face Profile: Due to position and MBH Nose: Nasal bone present Palate: suboptimal Orbits: Appears normal Lens: Normal 4-chamber view: Appears normal RVOT view: Appears normal LVOT view: Appears normal Heart / Thorax Aortic arch view: suboptimal Ductal arch view: suboptimal SVC: normal IVC: normal 3-vessel view: Appears normal 8-oftzqk-dzhwyfn view: Appears normal Rt lung: Appears normal Lt lung: normal Diaphragm: Appears normal Diaphragm: Intact Cord insertion: Appears normal Stomach: Appears normal Bladder: Appears normal Abdomen Rt kidney: normal Lt kidney: normal Liver: normal Small bowel: normal Large bowel: normal Cervical spine: Appears normal Thoracic spine: Appears normal Lumbar spine: Appears normal Sacral spine: Appears normal Arms: Appears normal Legs: Appears normal Rt upper arm: Appears normal Rt forearm: Appears normal Rt hand: Appears normal Lt upper arm: Appears normal Lt forearm: Appears normal Lt hand: Appears normal Rt upper leg: Appears normal Rt lower leg: Appears normal Rt foot: Appears normal Lt upper leg: Appears normal Lt lower leg: Appears normal Lt foot: Appears normal Gender: male Wants to know gender: yes Maternal Structures Uterus / Cervix Cervix: Visualized Approach: Transabdominal Cervical length 42.1 mm Ovaries / Tubes / Adnexa Rt ovary: Visualized Lt ovary: Visualized Impression Penelope presents for a anatomic survey. On today's exam, SIUP is noted in breech presentation with biometry measuring consistent with dates. There is a normal amount of amniotic fluid. Placenta is posterior. Small residual anterior DENISE is noted with measurements noted above. Cervical length appears adequate. Limited but normal appearing anatomy is visualized. Additional face and heart views are needed to complete the survey. Recommendation Follow-up scheduled in 4-6wks to complete the anatomic survey. PTL and PPROM precautions reviewed. Coding ======= Description: [id number] Detailed Parts Salesperson: Jacinda Velazquez RDMS Physician: Karolyn Keen MD Electronically signed by: Karolyn Keen MD at: 14:44 Procedure Note Karolyn Keen MD - 02/12/2025 PAT NAME: PENELOPE MERRITT MED REC#: [id number] DA: [id number] PAT GEND: F PAT TYPE: O EXAM PATRICK: [id number] REF PHYS LIS[place]TE OLIVEROS Comparison Studies The findings of this study are compared to the prior ultrasound studydated 12/27/24 Patient Status Outpatient Indication ======== subchorionic hemorrhage. Morbid obesity. H/O gestational hypertension. H/Obariatric surgery Maternal Assessment [id number] cm Height (ft)5 ft Height (in)6 in [id number] kg Weight (lb)240 lb BMI38.62 kg/m Method ======= Transabdominal ultrasound examination. View: Suboptimal view: limited bymaternal body habitus ========= Herrera . Number of fetuses: 1 Dating ====== GA by prior [id number] w + 0 d CAYLA by prior assessment:07/02/2025 Ultrasound examination on:02/12/2025 GA by U/S based upon:AC, BPD, Femur, HC GA by U/S19 w + 2 d CAYLA by U/S:07/07/2025 Method of dating:Restore dating from previous exam Previous dating:based on stated CAYLA, selected on 12/27/2024 Agreed CAYLA of previous datin07/02/2025 Assigned:based on stated CAYLA, selected on 12/27/2024 Assigned GA20 w + 0 d Assigned CAYLA:07/02/2025 d Biometry Standard BPD45.4 mm 19w 5d 38% Hadlock OFD60.0 mm 20w 5d 76% Meagan HC168.5 mm 19w 3d 20% Hadlock Cerebellum tr21.1 mm 20w 0d 77% Hill Nuchal fold3.1 mm AC140.2 mm 19w 3d 25% Hadlock Femur27.7 mm 18w 3d 5% Hadlock Hkvogrg21.9 mm 20w 2d 64% Meagan HC / AC1.20 74% Hadlock [id number] g 19w 0d 8% Hadlock EFW (lb)0 lb EFW (oz)10 oz EFW by:Hadlock (RNG-CF-UY-FL) Extended Tibia27.3 mm 19w 6d 54% Meagan Rtwpyd53.7 mm 19w 2d 38% Meagan Foot30.3 mm 17% Chitty Dblrhe65.0 mm 20w 0d 53% Meagan Ulna25.4 mm 19w 1d 14% Meagan Cav. septi pel. tr5.0 mm Vp6.7 mm CM4.5 mm 33% Nicolaides Nasal bone5.6 mm Rt Renal pelvis ap3.9 mm Lt Renal pelvis ap2.6 mm Head / Face / Neck Cephalic index0.76 18% Nicolaides Extremities / Bony Struc FL / BPD0.61 1% Hadlock FL / HC0.16 <1% Hadlock FL / AC0.20 6% Hadlock Other Structures [id number] bpm General Evaluation Cardiac activity present. FHR 159 bpm. movements present. Presentation breech. Placenta Placental site: posterior. Subchorionic hemorrhage (Size 50.0 mmx 10.0 mm x 24.0 mm). on the anterior wall. Umbilical cord Cord vessels: 3 vessel cord. Insertion site: placentalinsertion: normal. Amniotic fluid Amount of AF: normal. MVP 4.5 cm. Anatomy Cranium:Appears normal Midline falx:Appears normal Cavum septi pellucidi:Appears normal Cerebellum:Appears normal Cisterna magna:Appears normal Head / Neck Rt lateral ventricle:Appears normal Lt lateral ventricle:Appears normal Rt choroid plexus:Appears normal Lt choroid plexus:Appears normal Vermis:Appears normal Neck:Appears normal Nuchal fold:Appears normal Lips:suboptimal Profile:suboptimal Nose:Appears normal Face Profile:Due to position and MBH Nose:Nasal bone present Palate:suboptimal Orbits:Appears normal Lens:Normal 4-chamber view:Appears normal RVOT view:Appears normal LVOT view:Appears normal Heart / Thorax Aortic arch view:suboptimal Ductal arch view:suboptimal SVC:normal IVC:normal 3-vessel view:Appears normal 1-ymmprh-hssxlnt view:Appears normal Rt lung:Appears normal Lt lung:normal Diaphragm:Appears normal Diaphragm:Intact Cord insertion:Appears normal Stomach:Appears normal Bladder:Appears normal Abdomen Rt kidney:normal Lt kidney:normal Liver:normal Small bowel:normal Large bowel:normal Cervical spine:Appears normal Thoracic spine:Appears normal Lumbar spine:Appears normal Sacral spine:Appears normal Arms:Appears normal Legs:Appears normal Rt upper arm:Appears normal Rt forearm:Appears normal Rt hand:Appears normal Lt upper arm:Appears normal Lt forearm:Appears normal Lt hand:Appears normal Rt upper leg:Appears normal Rt lower leg:Appears normal Rt foot:Appears normal Lt upper leg:Appears normal Lt lower leg:Appears normal Lt foot:Appears normal Gender:male Wants to know gender:yes Maternal Structures Uterus / Cervix Cervix:Visualized Approach:Transabdominal Cervical .1 mm Ovaries / Tubes / Adnexa Rt ovary:Visualized Lt ovary:Visualized Impression Penelope presents for a anatomic survey. On today's exam, SIUP is noted in breech presentation with biometrymeasuring consistent with dates. There is a normal amount of amnioticfluid. Placenta is posterior. Small residual anterior DENISE is noted with measurements noted above.Cervical length appears adequate. Limited but normal appearing anatomy is visualized. Additional face andheart views are needed to complete the survey. Recommendation Follow-up scheduled in 4-6wks to complete the anatomic survey. PTL and PPROM precautions reviewed. Coding ======= Description:[id number] Detailed Parts Salesperson: Jacinda Velazquez RDMS Physician: Karolyn Keen MD Electronically signed by: Karolyn Keen MD at: 14:44 us Charly Mckinney MD IMG US ORDERABLES Final Re sult documented in this encounter Visit Diagnoses Diagnosis Subchorionic hematoma, antepartum, single or unspecified fetus , unspecified gestational age Previous delivery affecting Previous delivery, unspecified as to episode of care or not applicable Status post bariatric surgery Bariatric surgery status Morbid obesity with BMI of 40.0-44.9, adult documented in this encounter Additional Health Concerns Assessment Noted Time PHQ-2 Depression Total Score: 5 03/15/20 24 2:17 PM EDT documented as of this encounter Care Teams Curtain Worker Relationship Specialty Start Date End Date Felipa Her APRN [address] [place] [address] PCP - General Nurse Practitioner 08/10/23 documented as of this encounter
--- OUTSIDE RECORDS SUMMARY | 2025-02-12 13:45 | XMS_ITS | Encounter Summary ---
Author Organization [facility] Address [address] [place] [address] Care Team Providers Care Managing Partner Name Role Phone Felipa Her APRN Primary Care Provider [phone] Reason for Referral * Diagnostic Imaging (Routine) - Closed Specialty Diagnoses / Procedures Referred By Contact Referred To Contact Obstetrics and Gynecology Diagnoses Previous delivery affecting Status post bariatric surgery Subchorionic hematoma, antepartum, single or unspecified fetus Procedures [facility] Karolyn Keen MD [address] [facility] [address] [place] [address] Phone: tel: fax: [facility] [address] [facility] [address] [place] [phone] Phone: tel: fax: Referral ID Status Reason Start Date Expiration Date Visits Re quested Visits Authorized [id number] Closed 02/12/2025 05/14/2026 1 1 Reason for Visit * Reason Comments large DENISE; hx GHTN; s/p bariatric surger y Encounter Details Date Type Department Care Team (Late st Contact Info) Description 02/12/2025 1:45 PM EDT Office Visit [facility] [address] [facility] [address] [place] [phone] Karolyn Keen MD [address] [facility] [address] [place] [id number] Previous delivery affecting (Primary Dx); Status post bariatric surgery; Subchorionic hematoma, antepartum, single or unspecified fetus; 20 weeks gestation of Social History Tobacco Use Types Packs/Day Years [...] AM EDT documented as of this encounter Last Filed Vital Signs Vital Sign Reading Time Taken Comments Blood Pressure 114/73 02/12/2025 1:44 PM EDT Pulse - - Temperature - - Respiratory Rate - - Oxygen Saturation - - Inhaled Oxygen Concentration - - Weight 109 kg (241 lb) 02/12/2025 1:44 PM EDT Height - - Body Mass Index 38.32 12/27/2024 1:17 PM EDT documented in this encounter Progress Notes * Lyn Ordoñez RN - 02/12/2025 1:45 PM EDT Patient denies any leaking of fluid, vaginal bleeding, or contractions. NIPT negative per patient. Patient reports next follow-up appointment with Dr. Christina's office is 02/27. * Karolyn Keen MD - 02/12/2025 1:45 PM EDT Patient seen in Maternal Medicine clinic today. Please see full note in under imaging tab of patient chart in [facility] (Viewpoint report). Karolyn Keen MD documented in this encounter Plan of Treatment Not on file documented as of this encounter Results * [facility] (03/09/2025 9:29 AM EDT) Anatomical Region Laterality Modality Ultrasound 03/09/2025 9:07 AM EDT Narrative 03/13/2025 4:51 PM EDT PAT NAME: PENELOPE MERRITT MED REC#: [id number] DA: [id number] PAT GEND: F PAT TYPE: O EXAM PATRICK: [id number] REF PHYS LISSETTE CHRISTINA Comparison Studies The findings of this study are compared to the prior ultrasound study dated Patient Status Outpatient Indication ======== subchorionic hemorrhage. Obesity BMI 39. H/O gestational hypertension. H/O bariatric surgery Maternal Assessment Height 168 cm Height (ft) 5 ft Height (in) 6 in Weight 109 kg Weight (lb) 240 lb BMI 38.57 kg/m Method ======= Transabdominal ultrasound examination. View: Good view ========= Herrera . Number of fetuses: 1 Dating ====== Method of dating: based on stated CAYLA GA by prior assessment 23 w + 4 d CAYLA by prior assessment: 07/02/2025 Ultrasound examination on: 03/09/2025 GA by U/S based upon: AC, BPD, Femur, HC GA by U/S 23 w + 0 d CAYLA by U/S: 07/06/2025 Previous dating: based on stated CAYLA, selected on 12/27/2024 Agreed CAYLA of previous datin07/02/2025 Assigned: based on stated CAYLA, selected on 03/09/2025 Assigned GA 23 w + 4 d Assigned CAYLA: 07/02/2025 length 280 d Biometry Standard BPD 54.5 mm 22w 4d 13% Hadlock OFD 74.2 mm 24w 4d 79% Meagan HC 206.6 mm 22w 5d 10% Hadlock Cerebellum tr 26.6 mm 23w 6d 79% Hill AC 184.6 mm 23w 2d 32% Hadlock Femur 41.2 mm 23w 3d 31% Hadlock Humerus 38.8 mm 23w 5d 45% Meagan HC / AC 1.12 EFW 574 g 23w 0d 27% Hadlock EFW (lb) 1 lb EFW (oz) 4 oz EFW by: Hadlock ([id number]-[id number]-FL) Extended Cav. septi pel. tr 4.6 mm Acid Crane Operator 6.8 mm CM 8.7 mm 98% Nicolaides Head / Face / Neck Cephalic index 0.73 7% Nicolaides Extremities / Bony Struc FL / BPD 0.76 FL / HC 0.20 FL / AC 0.22 Other Structures FHR 147 bpm General Evaluation Cardiac activity present. FHR 147 bpm. movements present. Presentation cephalic. Placenta Placental site: posterior, low lying. Umbilical cord Cord vessels: 3 vessel cord. Amniotic fluid Amount of AF: normal. MVP 6.2 cm. Anterior DENISE measuring 3.07 x 0.93 cm. Anatomy Cranium: Normal Cavum septi pellucidi: Normal Cerebellum: Normal Cisterna magna: Normal Head / Neck Rt lateral ventricle: Normal Lt lateral ventricle: Normal Lips: Appear normal Profile: Appears normal Nose: Appears normal Face Palate: visualized 4-chamber view: Appears normal RVOT view: Appears normal LVOT view: Appears normal Heart / Thorax Aortic arch view: Appears normal Ductal arch view: Appears normal SVC: Appears Normal IVC: Appears Normal 3-vessel view: Appears normal 9-pojlcr-pwcwtwo view: Appears normal Cord insertion: Normal Stomach: Appears normal Kidneys: Appears normal Bladder: Appears normal Gender: male Wants to know gender: yes Maternal Structures Uterus / Cervix Cervix: Visualized Approach: Transabdominal Cervical length 53.0 mm Impression Cephalic S=D Normal appearing limited anatomy Small anterior DENISE Normal fluid Low lying placenta (posterior) Recommendation Follow up as clinically indicated Bleeding precautions reviewed Coding ======= Description: 91860-14 Follow Up Charter Representative: RT Roxanne Dawson , [facility] Physician: Elvira Wang MD, FACOG Electronically signed by: Elvira Wang MD, FACOG at: 16:51 Procedure Note Elvira Wang MD - 03/13/2025 PAT NAME: PENELOPE MERRITT MED REC#: [id number] DA: 2000 PAT GEND: F PAT TYPE: O EXAM PATRICK: [id number] REF PHYS LISSETTE CHRISTINA Comparison Studies The findings of this study are compared to the prior ultrasound studydated Patient Status Outpatient Indication ======== subchorionic hemorrhage. Obesity BMI 39. H/O gestational hypertension. H/Obariatric surgery Maternal Assessment Jinmnh767 cm Height (ft)5 ft Height (in)6 in Lxnoxu214 kg Weight (lb)240 lb BMI38.57 kg/m Method ======= Transabdominal ultrasound examination. View: Good view ========= Herrera . Number of fetuses: 1 Dating ====== Method of dating:based on stated CAYLA GA by prior [id number] w + 4 d CAYLA by prior assessment:07/02/2025 Ultrasound examination on:03/09/2025 GA by U/S based upon:AC, BPD, Femur, HC GA by U/S23 w + 0 d CAYLA by U/S:07/06/2025 Previous dating:based on stated CAYLA, selected on 12/27/2024 Agreed CAYLA of previous datin07/02/2025 Assigned:based on stated CAYLA, selected on 03/09/2025 Assigned GA23 w + 4 d Assigned CAYLA:07/02/2025 d Biometry Standard BPD54.5 mm 22w 4d 13% Hadlock OFD74.2 mm 24w 4d 79% Meagan HC206.6 mm 22w 5d 10% Hadlock Cerebellum tr26.6 mm 23w 6d 79% Hill AC184.6 mm 23w 2d 32% Hadlock Femur41.2 mm 23w 3d 31% Hadlock Rgcfenv07.8 mm 23w 5d 45% Meagan HC / AC1.12 KOS661 g 23w 0d 27% Hadlock EFW (lb)1 lb EFW (oz)4 oz EFW by:Hadlock (IMG-SV-[id number]-FL) Extended Cav. septi pel. tr4.6 mm Vp6.8 mm CM8.7 mm 98% Nicolaides Head / Face / Neck Cephalic index0.73 7% Nicolaides Extremities / Bony Struc FL / BPD0.76 FL / HC0.20 FL / AC0.22 Other Structures VJX944 bpm General Evaluation Cardiac activity present. FHR 147 bpm. movements present. Presentation cephalic. Placenta Placental site: posterior, low lying. Umbilical cord Cord vessels: 3 vessel cord. Amniotic fluid Amount of AF: normal. MVP 6.2 cm. Anterior DENISE measuring 3.07 x 0.93 cm. Anatomy Cranium:Normal Cavum septi pellucidi:Normal Cerebellum:Normal Cisterna magna:Normal Head / Neck Rt lateral ventricle:Normal Lt lateral ventricle:Normal Lips:Appear normal Profile:Appears normal Nose:Appears normal Face Palate:visualized 4-chamber view:Appears normal RVOT view:Appears normal LVOT view:Appears normal Heart / Thorax Aortic arch view:Appears normal Ductal arch view:Appears normal SVC:Appears Normal IVC:Appears Normal 3-vessel view:Appears normal 8-dfofiw-ayevewh view:Appears normal Cord insertion:Normal Stomach:Appears normal Kidneys:Appears normal Bladder:Appears normal Gender:male Wants to know gender:yes Maternal Structures Uterus / Cervix Cervix:Visualized Approach:Transabdominal Cervical kykraw70.0 mm Impression Cephalic S=D Normal appearing limited anatomy Small anterior DENISE Normal fluid Low lying placenta (posterior) Recommendation Follow up as clinically indicated Bleeding precautions reviewed Coding ======= Description:50131-36 Follow Up Charter Representative: RT Roxanne Dawson , [facility] Physician: Elvira Wang MD, FACOG Electronically signed by: Elvira Wang MD, FACOG at: :51 us Karolyn Keen MD IMG US ORDERABLES Final Res ult documented in this encounter Visit Diagnoses Diagnosis Previous delivery affecting - Primary Previous delivery, unspecified as to episode of care or not applicable Status post bariatric surgery Bariatric surgery status Subchorionic hematoma, antepartum, single or unspecified fetus 20 weeks gestation of Previous delivery affecting Previous delivery, unspecified as to episode of care or not applicable Status post bariatric surgery Bariatric surgery status Subchorionic hematoma, antepartum, single or unspecified fetus documented in this encounter Additional Health Concerns Assessment Noted Time PHQ-2 Depression Total Score: 5 03/15/20 24 2:17 PM EDT documented as of this encounter Care Teams Managing Partner Relationship Specialty Start Date End Date Felipa Her APRN [address] [place] [address] [place] [id number] PCP - General Nurse Practitioner 08/10/23 documented as of this encounter
--- OUTSIDE RECORDS SUMMARY | 2025-03-09 08:55 | XMS_ITS | Encounter Summary ---
Author Organization [facility] Address [address] [place] 1639799 Care Team Providers Care Proof Tester Name Role Phone Felipa Her APRN Primary Care Provider [phone] Reason for Referral * Diagnostic Imaging (Routine) - Closed Specialty Diagnoses / Procedures Referred By Contact Referred To Contact Obstetrics and Gynecology Diagnoses Previous delivery affecting Status post bariatric surgery Subchorionic hematoma, antepartum, single or unspecified fetus Procedures [facility] Karolyn Keen MD [address] [place] [address] Phone: tel: fax: [facility] [address] [address] Phone: tel: fax: Referral ID Status Reason Start Date Expiration Date Visits Re quested Visits Authorized [id number] Closed 02/12/2025 05/14/2026 1 1 Reason for Visit * Diagnostic Imaging (Routine) - Closed Specialty Diagnoses / Procedures Referred By Contact Referred To Contact Obstetrics and Gynecology Diagnoses Previous delivery affecting Status post bariatric surgery Subchorionic hematoma, antepartum, single or unspecified fetus Procedures [facility] [place] Karolyn Keen MD [address] [address] Phone: tel: fax: [facility] [address] [facility] [address] [place] [address] Phone: tel: fax: Referral ID Status Reason Start Date Expiration Date Visits Re quested Visits Authorized [id number] Closed 02/12/2025 05/14/2026 1 1 Encounter Details Date Type Department Care Team (Late st Contact Info) Description 03/09/2025 8:55 AM EDT - 03/09/2025 11:59 PM EDT Hospital Encounter [facility] US PER DIAG [facility] [address] [place] [address] Karolyn Keen MD [address] [facility] [address] [place] [address] Previous delivery affecting ; Status post bariatric [...] of Discharge Cholecalciferol (Vitamin D3) 1.25 MG (52778 UT) capsule TAKE ONE CAPSULE BY MOUTH [...] Procedure Name Priority Date/Time Associated Diagnosis Comments [facility] Routine 03/09/2025 9:29 AM EDT Previous delivery affecting Status post bariatric surgery Subchorionic hematoma, antepartum, single or unspecified fetus documented in this encounter Results * [facility] (03/09/2025 9:29 AM EDT) Anatomical Region Laterality Modality Ultrasound 03/09/2025 9:07 AM EDT Narrative 03/13/2025 4:51 PM EDT PAT NAME: PENELOPE MERRITT [facility] REC#: [id number] DA: [id number] PAT GEND: F PAT TYPE: O EXAM PATRICK: [id number] REF PHYS LISSETTE OLIVEROS Comparison Studies The [...] EFW (oz) 4 oz EFW by: Hadlock ([id number]-[id number]-FL) Extended Cav. septi pel. tr 4.6 mm Top Waddy 6.8 mm CM 8.7 mm 98% Nicolaides [...] IVC: Appears Normal 3-vessel view: Appears normal 8-mhshju-ulrfmen view: Appears normal Cord insertion: Normal Stomach: Appears normal Kidneys: Appears normal Bladder: Appears normal Gender: male Wants to know gender: yes Maternal Structures Uterus / Cervix Cervix: Visualized Approach: Transabdominal Cervical length 53.0 mm Impression Cephalic S=D Normal appearing limited anatomy Small anterior DENISE Normal fluid Low lying placenta (posterior) Recommendation Follow up as clinically indicated Bleeding precautions reviewed Coding ======= Description: 67708-35 Follow Up Remediation Consultant: RT Roxanne Dawson , [facility] Physician: Elvira Wang MD, FACOG Electronically signed by: Elvira Wang MD, FACOG at: 16:51 Procedure Note Elvira Wang MD - 03/13/2025 PAT NAME: PENELOPE MERRITT MED REC#: [id number] DA: [id number] PAT GEND: F PAT TYPE: O EXAM PATRICK: [id number] REF PHYS LISSETTE OLIVEROS Comparison Studies The findings of this study are compared to the prior ultrasound studydated Patient Status Outpatient Indication ======== subchorionic hemorrhage. Obesity BMI 39. H/O gestational hypertension. H/Obariatric surgery Maternal Assessment Vuwppy369 cm Height (ft)5 ft Height (in)6 in Omkeib155 kg Weight (lb)240 lb BMI38.57 kg/m Method ======= Transabdominal ultrasound examination. View: Good view ========= Herrera . Number of fetuses: 1 Dating ====== Method of dating:based on stated CAYLA GA by prior weadqrtzmf75 w + 4 d CAYLA by prior [...] Hadlock Femur41.2 mm 23w 3d 31% Hadlock Fyqotju72.8 mm 23w 5d 45% Meagan HC / AC1.12 EFU359 g 23w 0d 27% Hadlock EFW (lb)1 lb EFW (oz)4 oz EFW by:Hadlock (NEC-SO-CH-FL) Extended Cav. septi pel. tr4.6 mm Vp6.8 mm CM8.7 mm 98% Nicolaides Head / Face / Neck Cephalic index0.73 7% Nicolaides Extremities / Bony Struc FL / BPD0.76 FL / HC0.20 FL / AC0.22 Other Structures PVJ331 bpm General Evaluation Cardiac activity present. FHR [...] SVC:Appears Normal IVC:Appears Normal 3-vessel view:Appears normal 8-vgdkql-ifgdelb view:Appears normal Cord insertion:Normal Stomach:Appears normal Kidneys:Appears normal Bladder:Appears normal Gender:male Wants to know gender:yes Maternal Structures Uterus / Cervix Cervix:Visualized Approach:Transabdominal Cervical .0 mm Impression Cephalic S=D Normal appearing limited anatomy Small anterior DENISE Normal fluid Low lying placenta (posterior) Recommendation Follow up as clinically indicated Bleeding precautions reviewed Coding ======= Description:02503-84 Follow Up Remediation Consultant: RT Roxanne Dawson , [facility] Physician: Elvira Wang MD, FACOG Electronically signed [...] documented as of this encounter Care Teams Proof Tester Relationship Specialty Start Date End Date Felipa Her APRN [address] [place] [address] PCP - General Nurse Practitioner 08/10/23 documented as of this encounter
--- OUTSIDE RECORDS SUMMARY | 2025-03-09 09:15 | XMS_ITS | Encounter Summary ---
Author Organization [facility] Address [address] [place] [address] Care Team Providers Care Account Information Clerk Name Role Phone HerFelipa APRN Primary Care Provider [phone] Reason for Visit * Reason Comments large DENISE; hx GHTN; s/p bariatric surger y; CF carrier Encounter Details Date Type Department Care Team (Late st Contact Info) Description 03/09/2025 9:15 AM EDT Office Visit [facility] MATERNAL MEDICINE [address] [place] [id number] Elvira Wang MD [address] [place] [address] Subchorionic hematoma, antepartum, single or unspecified fetus (Primary Dx) Social History Tobacco Use Types Packs/Day Years [...] Sign Reading Time Taken Comments Blood Pressure 126/74 03/09/2025 9:05 AM EDT Pulse - - Temperature - - Respiratory Rate - - Oxygen Saturation - - Inhaled Oxygen Concentration - - Weight 109 kg (240 lb 12.8 oz) 03/09/2025 9:05 A M EDT Height - - Body Mass Index 38.28 12/27/2024 1:17 PM EDT documented in this encounter Progress Notes * Lyn Ordoñez RN - 03/09/2025 9:15 AM EDT Patient denies any leaking of fluid, vaginal bleeding, or contractions. NIPT low risk. Patient reports next follow-up appointment with Dr. Christina's office is in 4 weeks. * Elvira Wang MD - 03/09/2025 9:15 AM EDT Patient seen in Diagnostic Center today for ultrasound. Please see ultrasound report under imaging tab of patient chart in [facility] (Viewpoint report). Elvira Wang MD documented in this encounter Plan of Treatment Not on file documented as of this encounter Visit Diagnoses Diagnosis Subchorionic hematoma, antepartum, single or unspecified fetus- Primary documented in this encounter Additional Health Concerns Assessment Noted Time PHQ-2 Depression Total Score: 5 03/15/20 24 2:17 PM EDT documented as of this encounter Care Teams Account Information Clerk Relationship Specialty Start Date End Date Felipa Her APRN [address] [place] [address] PCP - General Nurse Practitioner 08/10/23 documented as of this encounter
--- OUTSIDE RECORDS SUMMARY | 2025-04-09 07:53 | XMS_ITS | Encounter Summary ---
Author Organization [facility] Address [facility] [place] [address] Phone Care Team Providers Care Physician Scientist Name Role Phone Karishma Torres MD Primary Care Provider [phone] Nola Dowling MD Primary Care Provider Eben Ball MD Primary Care Provide r Pcp, Nagi HERNANDEZ Primary Care Provider Encounter Details Date Type Department Care Team (Late st Contact Info) Description 11/04/2020 E-Visit [facility] [address] [place], [place] [address] [address] [place] [address] [place] [id number] [place] [address] RE: RE: Other Topic (See message) Social History Tobacco Use Types Packs/Day Years Used Date Smoking Tobacco: Never Smokeless Tobacco: Never Alcohol Use Standard Drinks/Week Comments Yes 0 (1 standard drink = 0.6 oz pur e alcohol) smirnoff ice twice per year [place] Depression Scale Answer Date Recorded [place] Depression Scale Total 4 12/20/2019 The thought [...] on filedocumented in this encounter Care Teams Physician Scientist Relationship Specialty Start Date End Date Karishma Torres MD PCP - General Family Medicine 03/19/20 02/19/21 Nola Dowling MD PCP - General Family Medicine 02/20/21 02/21/24 Eben Ball MD PCP - General Family Medicine 02/22/24 02/25/25 Pcp, MD Nagi No Address [place], [place] PCP - General Internal Medicine 02/26/25 documented as of this encounter
--- OUTSIDE RECORDS SUMMARY | 2025-04-09 07:53 | XMS_ITS | Referral Summary ---
Author Organization [facility] Address [address] [place] [address] Phone Care Team Providers Care Elevator Attendant Name Role Phone Pcp, None MD Primary Care Provider [phone] Allergies No known active allergies Medications Blood Pressure Monitoring (BLOOD PRESSURE MONITOR/L CUFF) [facility] Check blood pressure three times daily. [...] N/V, has been taking B6, did not continuous pickling line pickler Unisom bc no insurance, instructed pt [...] e alcohol) smirnoff ice twice per year [place] Depression Scale Answer Date Recorded [place] Depression Scale Total 4 12/20/2019 The thought [...] Author No 06/05/2020 2:25 PM EDT Debbie oHwell, Registered Nurse * Because of a physical, [...] 10/09/2021 2:39 PM EST Vaginal itching CYTOLOGY ERP DEVELOPER Routine 01/25/2020 11:33 AM EDT Pap smear for cervical cancer screening from Last 3 Months or Most Recently Relevant to Health Maintenance Results * CHLAMYDIA & GC RNA AMP (10/09/2021 2:39 PM EST) SPECIMEN SOURCE Urine, Random CENTRAL RECEIVING SPECIMEN TYPE Urine CENTRA L RECEIVING C. TRACHOMATIS BY AMP RNA Not Detected Not Detected [facility] 2 N. GONORRHOEAE BY AMP RNA Not Detected Not Detected [facility] 2 Comment: (NOTE) Testing methodology is neurophysiologist mediated amplification (TMA) using the Aptima Combo 2 assay from [employer] A negative result does not completely rule [...] upon request. Tested at: [facility], [address] [place] [address] Urine specimen (specimen) URINE SPECIMEN / Unknown 10/09/2021 2:39 PM EST 10/09/2021 8:49 PM EST Josué Silva Jr., MD BODY FLUIDS AND STOOLS ORDERABLES Final Result [facility] [address] [place] [address] CENTRAL RECEIVING [id number] [place] [address] 2 * (ABNORMAL) CYTOLOGY ERP DEVELOPER (01/25/2020 11:33 AM EDT) CYTOLOGY-ERP DEVELOPER CYTOLOGY GYNECOLOGICAL REPORT Name: PENELOPE MERRITT#: [id number] Case #: [id number] Final Cytologic Diagnosis A. Cervical/Endocervic al thinprep pap: Adequacy: Satisfactory for evaluation, endocervical transformation zone component present. Interpretation: Epithelial cell abnormality: Low-grade squamous intraepithelial lesion. This specimen has been analyzed by the ThinPrep Imaging System ([employer] an automated imaging and review system, which assists the sales representative wire rope and/or pathologist in evaluation of cells on Thinprep Pap tests. Flavia Up Electronically Signed Out By Diana Guillen MD Source of Specimen(s) A: Cervical/Endocervic al thinprep pap Clinical History Date of Last Menstrual Period: 01/03/2020 Signed out at [facility], [address] [place] [address] [facility] Non-Formatted Report (A) [facility] 01/25/2020 11:3 3 AM EDT 01/26/2020 3:41 PM EDT us Gordo Trejo MD PATHOLOGY/CYTOLOGY ORDERAB LES Final Result [facility] [address] [place] [address] from Last 3 Months or Most Recently Relevant to Health Maintenance Care Teams Elevator Attendant Relationship Specialty Start Date End Date Pcp, None, No Address [place], [place] PCP - General Internal Medicine 02/26/25
--- OUTSIDE RECORDS SUMMARY | 2025-04-09 07:54 | XMS_ITS | Encounter Summary ---
Author Organization [facility] Address [address] [place] [address] Care Team Providers Care Leak Gang Supervisor Name Role Phone Felipa Her APRN Primary Care Provider [phone] Encounter Details Date Type Department Care Team (Latest Contact Info) Description 02/12/2025 Travel Social History Tobacco Use Types Packs/Day Years [...] filedocumented in this encounter Additional Health Concerns Assessment Noted Time PHQ-2 Depression Total Score: 5 03/15/20 24 2:17 PM EDT documented as of this encounter Care Teams Leak Gang Supervisor Relationship Specialty Start Date End Date Felipa Her APRN [address] [place] PCP - General Nurse Practitioner 08/10/23 documented as of this encounter
--- OUTSIDE RECORDS SUMMARY | 2025-04-09 07:54 | XMS_ITS | Clinical Summary ---
Author Organization [facility] Address [address] [place] [address] Phone Care Team Providers Care Tanker Service Attendant Name Role Phone Pcp, None MD Primary Care Provider [phone] Allergies No known active allergies Medications Blood Pressure Monitoring (BLOOD PRESSURE MONITOR/L CUFF) [facility] Check blood pressure three times daily. Call [...] N/V, has been taking B6, did not meat pickler Unisom bc no insurance, instructed pt [...] e alcohol) smirnoff ice twice per year [place] Depression Scale Answer Date Recorded [place] Depression Scale Total 4 12/20/2019 The thought [...] 10/09/2021 2:39 PM EST Vaginal itching CYTOLOGY AUTOMOTIVE SOFTWARE ENGINEER Routine 01/25/2020 11:33 AM EDT Pap smear for cervical cancer screening from Last 3 Months or Most Recently Relevant to Health Maintenance Results * CHLAMYDIA & GC RNA AMP (10/09/2021 2:39 PM EST) SPECIMEN SOURCE Urine, Random CENTRAL RECEIVING SPECIMEN TYPE Urine CENTRA L RECEIVING C. TRACHOMATIS BY AMP RNA Not Detected Not Detected [facility] 2 N. GONORRHOEAE BY AMP RNA Not Detected Not Detected [facility] 2 Comment: (NOTE) Testing methodology is drying equipment operator mediated amplification (TMA) using the Aptima Combo 2 assay from [employer]. A negative result does not completely rule [...] methodology is available upon request. Tested at: [facility], [address] [place] [address] Urine specimen (specimen) URINE SPECIMEN / Unknown 10/09/2021 2:39 PM EST 10/09/2021 8:49 PM EST us Josué Silva Jr., MD BODY FLUIDS AND STOOLS ORDERABLES Final Result [facility] [address] [place] [id number] [place] [address] 2 * (ABNORMAL) CYTOLOGY AUTOMOTIVE SOFTWARE ENGINEER (01/25/2020 11:33 AM EDT) CYTOLOGY-AUTOMOTIVE SOFTWARE ENGINEER CYTOLOGY GYNECOLOGICAL REPORT Name: PENELOPE MERRITT#: [id number] Case #: [id number] Final Cytologic Diagnosis A. Cervical/Endocervic al thinprep pap: Adequacy: Satisfactory for evaluation, endocervical transformation zone component present. Interpretation: Epithelial cell abnormality: Low-grade squamous intraepithelial lesion. This specimen has been analyzed by the ThinPrep Imaging System ([employer] an automated imaging and review system, which assists the operations supervisor chemical cleaning and/or pathologist in evaluation of cells on Thinprep Pap tests. Flavia Up Electronically Signed Out By Diana Guillen MD Source of Specimen(s) A: Cervical/Endocervic al thinprep pap Clinical History Date of Last Menstrual Period: 01/03/2020 Signed out at [facility], [address] [place] [address] [facility] Non-Formatted Report (A) [facility] 01/25/2020 11:3 3 AM EDT 01/26/2020 3:41 PM EDT Gordo Trejo MD PATHOLOGY/CYTOLOGY ORDERAB LES Final Result [facility] [address] [place], [place] [id number] from Last 3 Months or Most Recently Relevant to Health Maintenance Advance Directives * Full Code (Latest Code Status on File) Date Activated Date Inactivated Comments 11/23/2019 12:21 AM 11/24/2019 2:14 PM * Full Code Date Activated Date Inactivated Comments 11/22/2019 10:21 AM 11/23/2019 12:20 AM Care Teams Tanker Service Attendant Relationship Specialty Start Date End Date Pcp, MD Nagi No Address [place], [place] PCP - General Internal Medicine 02/26/25
--- OUTSIDE RECORDS SUMMARY | 2025-04-09 07:54 | XMS_ITS | Encounter Summary ---
Author Organization [facility] Address [facility] [place] [address] Phone Care Team Providers Care Chief Design Branch Name Role Phone Karishma Torres MD Primary Care Provider [phone] Nola Dowling MD Primary Care Provider Eben Ball MD Primary Care Provide r Pcp, Nagi HERNANDEZ Primary Care Provider Encounter Details Date Type Department Care Team (Late st Contact Info) Description 07/27/[address] [address] Morgan Samaniego MD [address] [place] [address] [address] [place] [address] Social History Tobacco Use Types [...] documented as of this encounter Care Teams Chief Design Branch Relationship Specialty Start Date End Date Karishma Torres MD PCP - General Family Medicine 03/19/20 02/19/21 Nola Dowling MD PCP - General Family Medicine 02/20/21 02/21/24 Eben Ball MD PCP - General Family Medicine 02/22/24 02/25/25 PcpNagi MD No Address [place], [place] PCP - General Internal Medicine 02/26/25 documented as of this encounter
--- OUTSIDE RECORDS SUMMARY | 2025-04-09 07:54 | XMS_ITS | Clinical Summary ---
Author Organization [facility] Address [address] [place] [address] Care Team Providers Care Data Management Analyst Name Role Phone Felipa Her APRN Primary Care Provider [phone] Allergies No known active allergies Medications hydroCHLOROthiazid e (HYDRODIURIL) 12.5 MG tablet 1 tablet. 03/30/20 23 Active Cholecalciferol (Vitamin D3) 1.25 MG (51568 UT) capsule TAKE ONE CAPSULE BY MOUTH ONCE A WEEK FOR 8 WEEKS. TAKE ON THE SAME DAY EACH WEEK. 01/28/20 24 Active pregabalin (LYRICA) 50 MG capsuleIndications :Fibromyalgia Take 1 capsule by mouth 2 (Two) Times a Day. 60 capsule 2 03/15/20 24 Active Additional Information Patient not taking.Reported on 03/09/2025 metroNIDAZOLE (FLAGYL) 500 MG tablet Take 1 tablet by mouth Every 12 (Twelve) Hours. 12/23/19 25 Active metoclopramide (REGLAN) 10 MG tablet Take 1 tablet by mouth Every 6 (Six) Hours As Needed. 12/15/19 25 Active EQ Miconazole 7 2 % vaginal cream Insert 1 applicator into the vagina Every Night. 12/25/19 25 Active ondansetron ODT (ZOFRAN-ODT) [address] 1 tablet on the tongue Every 6 (Six) Hours As Needed. 11/09/19 25 Active MV & Min w/FA-DHA ( GUMMIES PO) Take by mouth Daily. Active EQ Aspirin Low Dose 81 MG EC tablet Take 1 tablet by mouth Daily. 01/06/20 25 Active Active Problems Problem Noted Date Diagnosed Date Status post bariatric surgery 12/27/2024 Previous delivery affecting 0 12/27/2024 12/27/2024 Subchorionic hematoma, antepartum 12/27/2024 Assessment & Plan (12/27/2024 1:50 PM EDT): Patient referred for complicated by a large subchorionic hematoma noted in her primary OB office. Patient has had spotting for several weeks and reports continued spotting currently. Additionally patient underwent bariatric surgery approximately 6 weeks ago. Patient reports that she had a negative urine test before her surgery. Additionally patient reports that she did not receive to her knowledge any anticoagulation associated with the surgery or the postop.. Patient currently is not taking any nonsteroidal anti-inflammatories or other anticoagulant medications. Ultrasound today demonstrates a normally grown fetus with no abnormality seen. Nasal bone is present and nuchal translucency is normal. Amniotic fluid volume is normal. A large subchorionic hematoma is seen to extend from the leading edge of the placenta nearly completely or around the excluding the placental site. There is some sonolucent material in the subchorionic hematoma consistent with blood. Cervical length is normal. Patient was informed of the finding of a large subchorionic hematoma. We noted that there appears to be nothing that she has done that cause this. We discussed the variable outcomes with large subchorionic hematomas. Some of them will resolve spontaneously other ones would lead to rupture membranes at a previable age and miscarriage. At the current time it is not possible to predict what will happen in this . We additionally discussed her bariatric surgery that was performed while she was . Fortunately this was performed during the all or none periodOf embryo issac. Consequently the should not be an increased risk of congenital anomalies related to the surgery. Most likely her surgery was not associated with her bariatric surgery as she reports no pelvic trauma that she is aware of. Additionally she has had no anticoagulation that she is aware of. Patient was counseled signs and symptoms of rupture membranes and/or miscarriage. She will contact her provider if she notices any signs or symptoms. We will rescan the patient again in 6 weeks time to assess anatomy and resolution of the subchorionic hematoma. We recommend the patient not work with this large subchorionic hematoma. Morbid obesity with BMI of 40.0-44.9, adult 02/2025 Estimated Date of Delivery Comme nts Yes 07/02/2025 Date entered milka or to episode creation Encounters Date Type Department Care Team Description 03/09/2025 9:15 AM EDT Office Visit [facility] [address] [facility] [address] [place] [phone] Elvira Wang MD Subchorionic hematoma, antepartum, single or unspecified fetus (Primary Dx) 03/09/2025 8:55 AM EDT - 03/09/2025 11:59 PM EDT Hospital Encounter [facility] [address] [place] [phone] Karolyn Keen MD Previous delivery affecting ; Status post bariatric surgery; Subchorionic hematoma, antepartum, single or unspecified fetus Discharge Disposition: Home or Self Care 03/09/2025 Travel 02/12/2025 1:45 PM EDT Office Visit [facility] [address] [phone] Karolyn Keen MD Previous delivery affecting (Primary Dx); Status post bariatric surgery; Subchorionic hematoma, antepartum, single or unspecified fetus; 20 weeks gestation of 02/12/2025 1:37 PM EDT - 02/12/2025 11:59 PM EDT Hospital Encounter [facility] [address] [place] [phone] Charly Mckinney MD Subchorionic hematoma, antepartum, single or unspecified fetus; , unspecified gestational age; Previous delivery affecting ; Status post bariatric surgery; Morbid obesity with BMI of 40.0-44.9, adult Discharge Disposition: Home or Self Care 02/12/2025 Telephone [facility] [address] [facility] [address] [place] [phone] Lyn Ordoñez, RN 02/12/2025 Travel from Last 3 Months Immunizations Immunization Administration Dates Next Due DTaP 5 09/02/2011,06/02/1999,04/30/1999 ,02/03/1999 DTaP, Unspecified 12/18/2002,07/06/2000 Hepatitis A 12/08/2012,05/31/2012 Hepatitis B Adult/Adolescent IM 07/24/1999,02/03,1998 Hib (PRP-OMP) 05/11/2000 Hib (PRP-T) 06/02/1999,04/30/1999,02/03/1999 Hpv9 12/08/2012,07/01/2012,05/31/2012 IPV 12/18/2002,07/06/2000,04/30/1999 ,02/03/1999 Influenza Seasonal Injectable 05/10/2013 ,05/19/2012,06/12/2011,08/01/2009, 08/02/2008,08/04/2007 Influenza Whole 06/05/2015,05/17/2014 MMR 12/18/2002,05/11/2000 Meningococcal MCV4P (Menactra) 06/05/2015,2011 Tdap 06/05/2015 Varicella 07/17/2009,05/11/2000 Social History Tobacco Use Types Packs/Day Years Used Date Smoking Tobacco: Never Passive Smoke Exposure: Never Smokeless Tobacco: Never Tobacco Cessation:Counseling Given: Not Answered Alcohol Use Standard Drinks/Week Comments Never 0 [...] Orientation Straight 12/27/2024 10 :29 AM EDT Last Filed Vital Signs Vital Sign Reading Time Taken Comments Blood Pressure 126/74 03/09/2025 9:05 AM EDT Pulse - - Temperature 36.2 C (97.1 F) 09/22/2023 10:12 AM EST Respiratory Rate - - Oxygen Saturation - - Inhaled Oxygen Concentration - - Weight 109 kg (240 lb 12.8 oz) 03/09/2025 9:05 A M EDT Height 168.9 cm (5' 6.5 ) 12/27/2024 1:17 PM EDT Body Mass Index 38.28 12/27/2024 1:17 PM EDT Plan of Treatment Health Maintenance Due Date Last Done Comments Annual Gynecologic Pelvic and Breast Exam 1998 PAP SMEAR 11/12/2019 ANNUAL PHYSICAL 08/18/2023 HEPATITIS C SCREENING 08/18/2023 COVID-19 Vaccine ( season) 2024 RSV Vaccine - Adults (1 - Risk 1-dose series) 05/07/2025 INFLUENZA VACCINE 05/23/2025 06/05/2015, , 05/10/2013, Additional history exists TDAP/TD VACCINES (2 - Td or Tdap) 06/05/2025 06/05/2015 HPV VACCINES Completed 12/08/2012, 11/0 04/2012, 05/31/2012 Pneumococcal Vaccine 0-49 Aged Out No longer eligible based on patient's age to complete this topic Procedures Procedure Name Priority Date/Time Associated Diagnosis Comments [facility] Routine 03/09/2025 9:29 AM EDT Previous delivery affecting Status post bariatric surgery Subchorionic hematoma, antepartum, single or unspecified fetus [facility] Routine 02/12/2025 2:38 PM EDT Subchorionic hematoma, antepartum, single or unspecified fetus , unspecified gestational age Previous delivery affecting Status post bariatric surgery Morbid obesity with BMI of 40.0-44.9, adult from Last 3 Months Results * [facility] (03/09/2025 9:29 AM EDT) Only the most recent of2 resultswithin the time period is included. Anatomical Region Laterality Modality Ultrasound 03/09/2025 9:07 AM EDT Narrative 03/13/2025 4:51 PM EDT PAT NAME: PENELOPE MERRITT MED REC#: [id number] DA: 2000 PAT GEND: F PAT TYPE: O EXAM PATRICK: [id number] REF PHYS LISSETTE OLIVEROS Comparison Studies The [...] EFW (oz) 4 oz EFW by: Hadlock ([id number]-[id number]-FL) Extended Cav. septi pel. tr 4.6 mm Java Websphere Developer 6.8 mm CM 8.7 mm 98% Nicolaides [...] IVC: Appears Normal 3-vessel view: Appears normal 1-gooljh-kaoaoug view: Appears normal Cord insertion: Normal Stomach: Appears normal Kidneys: Appears normal Bladder: Appears normal Gender: male Wants to know gender: yes Maternal Structures Uterus / Cervix Cervix: Visualized Approach: Transabdominal Cervical length 53.0 mm Impression Cephalic S=D Normal appearing limited anatomy Small anterior DENISE Normal fluid Low lying placenta (posterior) Recommendation Follow up as clinically indicated Bleeding precautions reviewed Coding ======= Description: [id number] Follow Up Electric Screw Driver Operator: RT Roxanne Dawson , RDMS Physician: Elvira Wang MD, FACOG Electronically signed by: Elvira Wang MD, FACOG at: 16:51 Procedure Note Elvira Wang MD - 03/13/2025 [facility] REC#: [id number] DA: 2000 PAT GEND: F PAT TYPE: O EXAM PATRICK: [id number] REF PHYS LISSETTE OLIVEROS Comparison Studies The findings of this study are compared to the prior ultrasound studydated Patient Status Outpatient Indication ======== subchorionic hemorrhage. Obesity BMI 39. H/O gestational hypertension. H/Obariatric surgery Maternal Assessment Pknzuw667 cm Height (ft)5 ft Height (in)6 in Hdcvli664 kg Weight (lb)240 lb BMI38.57 kg/m Method ======= Transabdominal ultrasound examination. View: Good view ========= Herrera . Number of fetuses: 1 Dating ====== Method of dating:based on stated CAYLA GA by prior [email or web address] w + 4 d CAYLA by prior assessment:07/02/2025 Ultrasound examination on:03/09/2025 GA by U/S based upon:AC, BPD, Femur, HC GA by U/S23 w + 0 d CAYLA by U/S:07/06/2025 Previous dating:based on stated CAYLA, selected on 12/27/2024 Agreed CAYLA of previous datin07/02/2025 Assigned:based on stated CAYLA, selected on 03/09/2025 Assigned GA23 w + 4 d Assigned CAYLA:07/02/2025 [id number] d Biometry Standard BPD54.5 mm 22w 4d 13% Hadlock OFD74.2 mm 24w 4d 79% Meagan HC206.6 mm 22w 5d 10% Hadlock Cerebellum tr26.6 mm 23w 6d 79% Hill AC184.6 mm 23w 2d 32% Hadlock Femur41.2 mm 23w 3d 31% Hadlock Fmcawfe57.8 mm 23w 5d 45% Meagan HC / AC1.12 XZW311 g 23w 0d 27% Hadlock EFW (lb)1 lb EFW (oz)4 oz EFW by:Hadlock (IFR-ML-TA-FL) Extended Cav. septi pel. tr4.6 mm Vp6.8 mm CM8.7 mm 98% Nicolaides Head / Face / Neck Cephalic index0.73 7% Nicolaides Extremities / Bony Struc FL / BPD0.76 FL / HC0.20 FL / AC0.22 Other Structures [id number] bpm General Evaluation Cardiac activity present. FHR [...] SVC:Appears Normal IVC:Appears Normal 3-vessel view:Appears normal 8-coxaae-dqdjvfm view:Appears normal Cord insertion:Normal Stomach:Appears normal Kidneys:Appears normal Bladder:Appears normal Gender:male Wants to know gender:yes Maternal Structures Uterus / Cervix Cervix:Visualized Approach:Transabdominal Cervical .0 mm Impression Cephalic S=D Normal appearing limited anatomy Small anterior DENISE Normal fluid Low lying placenta (posterior) Recommendation Follow up as clinically indicated Bleeding precautions reviewed Coding ======= Description:[id number] Follow Up Electric Screw Driver Operator: RT Roxanne Dawson , [facility] Physician: Elvira Wang MD, FACOG Electronically signed by: Elvira Wang MD, FACOG at: 6:51 Karolyn Keen MD IMG US ORDERABLES Final Res ult from Last [address] [facility] Care Teams Data Management Analyst Relationship Specialty Start Date End Date Felipa Her APRN [address] [place] [id number] PCP - General Nurse Practitioner 08/10/23
--- OUTSIDE RECORDS SUMMARY | 2025-04-09 07:54 | XMS_ITS | Encounter Summary ---
Author Organization [employer] [facility] Address [facility] [place] [address] Phone Care Team Providers Care Director Clinical Pharmacology Name Role Phone Karishma Torres MD Primary Care Provider [phone] Nola Dowling MD Primary Care Provider Eben Ball MD Primary Care Provide r PcpNagi MD Primary Care Provider [phone] Encounter Details Date Type Department Care Team (Late st Contact Info) Description 11/22/2019 OB Documents [facility] Care Program [address] [place] [phone] [facility] [place] [address] Social History Tobacco Use Types Packs/Day Years [...] documented as of this encounter Care Teams Director Clinical Pharmacology Relationship Specialty Start Date End Date Karishma Torres MD PCP - General Family Medicine 03/19/20 02/19/21 Nola Dowling MD PCP - General Family Medicine 02/20/21 02/21/24 Eben Ball MD PCP - General Family Medicine 02/22/24 02/25/25 Nagi Rodriguez MD No Address [place], [place] PCP - General Internal Medicine 02/26/25 documented as of this encounter
--- OUTSIDE RECORDS SUMMARY | 2025-04-09 07:54 | XMS_ITS | Encounter Summary ---
Author Organization [facility] Address [address] [place] [address] Care Team Providers Care Machine Rigger Name Role Phone Felipa Her APRN Primary Care Provider [phone] Encounter Details Date Type Department Care Team (Latest Contact Info) Description 03/09/2025 Travel Social History Tobacco Use Types Packs/Day [...] documented as of this encounter Care Teams Machine Rigger Relationship Specialty Start Date End Date Felipa Her APRN [address] [place] PCP - General Nurse Practitioner 08/10/23 documented as of this encounter
--- OUTSIDE RECORDS SUMMARY | 2025-04-09 07:54 | XMS_ITS | Clinical Summary ---
Author Organization [facility] Address [address] [facility] [address] [address] [place] [address] Care Team Providers Care Logistics Associate Name Role Phone Wilmer Niya Ellis NP Primary Care Provider Allergies No known active allergies Medications No known medications Active Problems Problem Noted Date Diagnosed Date Body mass index 40+ - severely obese 12/05/2018 Overview (04/09/2022): 05/22/2019 discussed weight gain expectation 11-20lb this 11/01/2019 compliant with weekly BPP Family History Medical History Relation Name Comments Asthma Brother Evaristo ochoa COPD Maternal Grandmother Sarah Paula Anxiety disorder Mother Laura hernandez Asthma Mother Laura hernandez Depression Mother Laura hernandez Hypertension Mother Laura hernandez Miscarriages / Stillbirths Mother Laura hernandez Anxiety disorder Sister Charity marin Asthma Sister Charity marin Depression Sister Charity marin Miscarriages / Stillbirths Sister Charity stidha m Relation Name Status Comments Brother Evaristo ochoa Maternal Grandmother Sarah Paula Mother Laura hernandez Sister Charity marin Social History Tobacco Use Types Packs/Day Years Used Date Smoking Tobacco: Never Smokeless Tobacco: Never Alcohol Use Standard Drinks/Week Comments Yes 7 (1 standard drink = 0.6 oz pur e alcohol) Maybe twice a year Comments Unknown Sex and Gender Information Value Date Recorded Sex Assigned at Female 04/04/2022 10:36 PM EDT Legal Sex Female 1:45 PM EDT Gender Identity Female 04/04/2022 10:36 PM EDT Sexual Orientation Straight 04/04/2022 10 :36 PM EDT 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 - [employer] Not on file Not on file Not on file Last Filed Vital Signs Vital Sign Reading Time Taken Comments Blood Pressure 102/60 05/19/2022 2:12 PM EDT Pulse 88 04/09/2022 10:15 AM EDT Temperature 36.2 C (97.1 F) 05/19/2022 2:12 PM EDT Respiratory Rate - - Oxygen Saturation - - Inhaled Oxygen Concentration - - Weight 125 kg (275 lb) 05/19/2022 2:12 PM EDT Height 170.2 cm (5' 7 ) 05/19/2022 2:12 PM EDT Body Mass Index 43.07 05/19/2022 2:12 PM EDT Plan of Treatment Health Maintenance Due Date Last Done Comments HIV Screening 1998 Hepatitis C Screening 1998 MMR Vaccines (1 of 1 - Standard series) 11/12/1999 Varicella Vaccines (1 of 2 - 13+ 2-dose series) 11/12/2011 HPV Vaccines (1 - 3-dose series) 2013 Hepatitis B Screening 2016 DTaP/Tdap/Td Vaccines (1 - Tdap) 2017 Hepatitis B Vaccines (1 of 3 - 19+ 3-dose series) 2017 Pap Smear 11/12/2019 COVID-19 Vaccine (1 - season) 2024 Depression Risk Screening 08/23/2024 SDOH Screening 08/23/2024 Influenza Vaccine (#1) 2025 5, 05/17/2014, 05/10/2013, Additional history exists Zoster Vaccines (1 of 2) 2048 HIB Vaccines Aged Out No longer eligi ble based on patient's age to complete this topic Hepatitis A Vaccines Aged Out No long er eligible based on patient's age to complete this topic IPV Vaccines Aged Out No longer eligi ble based on patient's age to complete this topic Meningococcal B Vaccine Aged Out No l onger eligible based on patient's age to complete this topic Meningococcal Vaccine Aged Out No robson eric eligible based on patient's age to complete this topic Pneumococcal Vaccine Aged Out No long er eligible based on patient's age to complete this topic Rotavirus Vaccines Aged Out No longer eligible based on patient's age to complete this topic [place] [facility] Care Teams Logistics Associate Relationship Specialty Start Date End Date Niya Guillen NP [address] [place] [address], [address] [place] [address] PCP - General Family Medicine 03/31/22
--- OUTSIDE RECORDS SUMMARY | 2025-04-09 07:54 | XMS_ITS | Encounter Summary ---
Author Organization [facility] Address [address] [place] [address] Care Team Providers Care Cleaner And Preparer Name Role Phone Arden Felipa NANY Primary Care Provider [phone] Encounter Details Date Type Department Care Team (Late st Contact Info) Description 02/12/2025 Telephone [facility] MAT[facility]NAL MEDICINE [address] [facility] [address] [place] [address] Lyn Ordoñez, RN Social History Tobacco Use Types Packs/Day Years [...] AM EDT documented as of this encounter Miscellaneous Notes * Telephone Encounter - Lyn Ordoñez, RN - 02/12/2025 2:18 PM EDT Called to request NIPT results. Neetu states she will fax results. documented in this encounter Plan of Treatment Not on file documented as of this encounter Visit Diagnoses Not on filedocumented in this encounter Additional Health Concerns Assessment Noted Time PHQ-2 Depression Total Score: 5 03/15/20 24 2:17 PM EDT documented as of this encounter Care Teams Cleaner And Preparer Relationship Specialty Start Date End Date Felipa Her APRN [address] [place] [address] PCP - General Nurse Practitioner 08/10/23 documented as of this encounter
--- OUTSIDE RECORDS SUMMARY | 2025-04-09 07:54 | XMS_ITS | Encounter Summary ---
Author Organization [facility] Address [facility] [place] [address] Phone Care Team Providers Care Unit Manager Convenience Stores Name Role Phone Karishma Torres MD Primary Care Provider [phone] Nola Dowling MD Primary Care Provider Eben Ball MD Primary Care Provide r Pcp, Nagi HERNANDEZ Primary Care Provider [phone] Encounter Details Date Type Department Care Team (Late st Contact Info) Description 07/26/[address] [address] Morgan Samaniego MD [address] [place] [address] [address] [place] [address] Social History Tobacco Use Types [...] documented as of this encounter Care Teams Unit Manager Convenience Stores Relationship Specialty Start Date End Date Karishma Torres MD PCP - General Family Medicine 03/19/20 02/19/21 Nola Dowling MD PCP - General Family Medicine 02/20/21 02/21/24 Eben Ball MD PCP - General Family Medicine 02/22/24 02/25/25 PcpNagi MD No Address [place], [place] PCP - General Internal Medicine 02/26/25 documented as of this encounter
--- OUTSIDE RECORDS SUMMARY | 2025-04-09 07:54 | XMS_ITS | Clinical Summary ---
Author Organization [facility] Address [address], [address] [place] [address] Care Team Providers Care Animal Trainer Name Role Phone [facility] Primary Care Provider Unav ailable Allergies No [...] Plan of Treatment Not on file Insurance [facility] [place] Care Teams Animal Trainer Relationship Specialty Start Date End Date [facility] PCP - General 07/29/21
--- OUTSIDE RECORDS SUMMARY | 2025-04-09 07:54 | XMS_ITS | Encounter Summary ---
Author Organization [employer] [facility] Address [facility] [place] [address] Phone Care Team Providers Care Qc Tech Name Role Phone Karishma Torres MD Primary Care Provider [phone] Nola Dowling MD Primary Care Provider Eben Ball MD Primary Care Provide r PcpNagi MD Primary Care Provider [phone] Encounter Details Date Type Department Care Team (Late st Contact Info) Description 04/19/2019 OB Documents [facility] Care Program [address] [place] [phone] [facility], MD allison [facility] [place] [address] Social History Tobacco Use Types Packs/Day Years [...] documented as of this encounter Care Teams Qc Tech Relationship Specialty Start Date End Date Karishma Torres MD PCP - General Family Medicine 03/19/20 02/19/21 Nola Dowling MD PCP - General Family Medicine 02/20/21 02/21/24 Eben Ball MD PCP - General Family Medicine 02/22/24 02/25/25 PcpNagi MD No Address [place], [place] PCP - General Internal Medicine 02/26/25 documented as of this encounter
[2025-04-09 09:16] LABS: Hematocrit 32.0 % (37.0-47.0); Hemoglobin 10.9 g/dL (12.2-16.2); Immature Granulocytes % 0.3 %; Mean Corpuscular HGB Conc 34.1 g/dL (31.8-35.4); Mean Corpuscular Hemoglobin 31.1 pg (27.0-31.2); Mean Corpuscular Volume 91.2 fl (81-99); Nucleated Red Blood Cells % 0 %; Platelet Count 221 K/mm3 (142-424); Red Blood Count 3.51 M/mm3 (4.20-5.40); Red Cell Distribution Width-SD 49.1 fL; White Blood Count 6.4 K/mm3 (4.8-10.8)
[2025-04-09 09:32] LABS: Glucose 1 Hour 71 mg/dL (74-100)
[2025-04-10 15:31] LABS: RPR W/RFX Titers Nonreactive (Nonreactive)
== END 2025-04-09 23:59 | disposition home or self-care (01) ==
LOC: LAB 07:52
PROVIDERS: PCP Nurse Practitioner Family; Visit Provider Obstetrics & Gynecology
DX: Z34.83 Encounter for supervision of other normal pregnancy, third trimester (principal); Z3A.00 Weeks of gestation of pregnancy not specified
CPT/HCPCS: 36415; 82947; 85025; 86592

== ENCOUNTER 2025-04-17 09:17 | Outpatient (CLI) | payer OTHER, SELFPAY ==
--- OUTSIDE RECORDS SUMMARY | 2025-03-09 08:55 | XMS_ITS | Encounter Summary ---
Author Organization [facility] Address [address] [place] [id number] Care Team Providers Care Furniture Sprayer Name Role Phone Felipa Her APRN Primary Care Provider [phone] Reason for Referral * Diagnostic Imaging (Routine) - Closed Specialty Diagnoses / Procedures Referred By Contact Referred To Contact Obstetrics and Gynecology Diagnoses Previous delivery affecting Status post bariatric surgery Subchorionic hematoma, antepartum, single or unspecified fetus Procedures [facility] Karolyn Keen MD [address] [place] [address] Phone: tel: fax: [facility] [address] [address] Phone: tel: fax: Referral ID Status Reason Start Date Expiration Date Visits Re quested Visits Authorized [id number] Closed 02/12/2025 05/14/2026 1 1 Reason for Visit * Diagnostic Imaging (Routine) - Closed Specialty Diagnoses / Procedures Referred By Contact Referred To Contact Obstetrics and Gynecology Diagnoses Previous delivery affecting Status post bariatric surgery Subchorionic hematoma, antepartum, single or unspecified fetus Procedures [facility] [place] Karolyn Keen MD [address] [address] Phone: tel: fax: [facility] [address] [facility] [address] [place] [address] Phone: tel: fax: Referral ID Status Reason Start Date Expiration Date Visits Re quested Visits Authorized [id number] Closed 02/12/2025 05/14/2026 1 1 Encounter Details Date Type Department Care Team (Late st Contact Info) Description 03/09/2025 8:55 AM EDT - 03/09/2025 11:59 PM EDT Hospital Encounter [facility] US PER DIAG CTR [address] [place] [address] Karolyn Keen MD [address] [facility] [address] [place] [address] Previous delivery affecting ; Status post bariatric surgery; Subchorionic hematoma, antepartum, single or unspecified fetus Discharge Disposition: Home or Self Care Social [...] of Discharge Cholecalciferol (Vitamin D3) 1.25 MG (08827 UT) capsule TAKE ONE CAPSULE BY MOUTH [...] Procedure Name Priority Date/Time Associated Diagnosis Comments [facility] Routine 03/09/2025 9:29 AM EDT Previous delivery affecting Status post bariatric surgery Subchorionic hematoma, antepartum, single or unspecified fetus documented in this encounter Results * [facility] (03/09/2025 9:29 AM EDT) Anatomical Region Laterality Modality Ultrasound 03/09/2025 9:07 AM EDT Narrative 03/13/2025 4:51 PM EDT PAT NAME: PENELOPE MERRITT [facility] REC#: [id number] DA: [id number] PAT GEND: F PAT TYPE: O EXAM PATRICK: [id number] REF PHYS LISSETTE OLIVEROS Comparison Studies The [...] EFW (oz) 4 oz EFW by: Hadlock ([id number]-LW-[id number]-FL) Extended Cav. septi pel. tr 4.6 mm Trial Consultant 6.8 mm CM 8.7 mm 98% Nicolaides [...] IVC: Appears Normal 3-vessel view: Appears normal 2-vcquel-yrcbsgz view: Appears normal Cord insertion: Normal Stomach: Appears normal Kidneys: Appears normal Bladder: Appears normal Gender: male Wants to know gender: yes Maternal Structures Uterus / Cervix Cervix: Visualized Approach: Transabdominal Cervical length 53.0 mm Impression Cephalic S=D Normal appearing limited anatomy Small anterior DENISE Normal fluid Low lying placenta (posterior) Recommendation Follow up as clinically indicated Bleeding precautions reviewed Coding ======= Description: 60189-26 Follow Up Maintenance Craftsman: RT Roxanne Dawson , [facility] Physician: Elvira Wang MD, FACOG Electronically signed by: Elvira Wang MD, FACOG at: 16:51 Procedure Note Elvira Wang MD - 03/13/2025 PAT NAME: PENELOPE MERRITT MED REC#: [id number] DA: [id number] PAT GEND: F PAT TYPE: O EXAM PATRICK: [id number] REF PHYS LISSETTE OLIVEROS Comparison Studies The findings of this study are compared to the prior ultrasound studydated Patient Status Outpatient Indication ======== subchorionic hemorrhage. Obesity BMI 39. H/O gestational hypertension. H/Obariatric surgery Maternal Assessment Jjconx671 cm Height (ft)5 ft Height (in)6 in Ofvtsh512 kg Weight (lb)240 lb BMI38.57 kg/m Method ======= Transabdominal ultrasound examination. View: Good view ========= Herrera . Number of fetuses: 1 Dating ====== Method of dating:based on stated CAYLA GA by prior popmhhclhj39 w + 4 d CAYLA by prior [...] Hadlock Femur41.2 mm 23w 3d 31% Hadlock Chwrury21.8 mm 23w 5d 45% Meagan HC / AC1.12 NCN832 g 23w 0d 27% Hadlock EFW (lb)1 lb EFW (oz)4 oz EFW by:Hadlock (VZH-[id number]-KV-FL) Extended Cav. septi pel. tr4.6 mm Vp6.8 mm CM8.7 mm 98% Nicolaides Head / Face / Neck Cephalic index0.73 7% Nicolaides Extremities / Bony Struc FL / BPD0.76 FL / HC0.20 FL / AC0.22 Other Structures AQR948 bpm General Evaluation Cardiac activity present. FHR [...] SVC:Appears Normal IVC:Appears Normal 3-vessel view:Appears normal 8-dfeoss-kuankzs view:Appears normal Cord insertion:Normal Stomach:Appears normal Kidneys:Appears normal Bladder:Appears normal Gender:male Wants to know gender:yes Maternal Structures Uterus / Cervix Cervix:Visualized Approach:Transabdominal Cervical ibnpll95.0 mm Impression Cephalic S=D Normal appearing limited anatomy Small anterior DENISE Normal fluid Low lying placenta (posterior) Recommendation Follow up as clinically indicated Bleeding precautions reviewed Coding ======= Description:69847-36 Follow Up Maintenance Craftsman: RT Roxanne Dawson , [facility] Physician: Elvira Wang MD, FACOG Electronically signed by: Elvira Wang MD, FACOG at: 6:51 us Karolyn Keen MD IMG US ORDERABLES Final Res ult documented in this encounter Visit Diagnoses Diagnosis Previous delivery affecting Previous delivery, unspecified as to episode of care or not applicable Status post bariatric surgery Bariatric surgery status Subchorionic hematoma, antepartum, single or unspecified fetus documented in this encounter Additional Health Concerns Assessment Noted Time PHQ-2 Depression Total Score: 5 03/15/ 24 2:17 PM EDT documented as of this encounter Care Teams Furniture Sprayer Relationship Specialty Start Date End Date Felipa Her APRN [address] [place] [address] PCP - General Nurse Practitioner 08/10/23 documented as of this encounter
--- OUTSIDE RECORDS SUMMARY | 2025-03-09 09:15 | XMS_ITS | Encounter Summary ---
Author Organization [facility] Address [address] [place] [address] Care Team Providers Care Contact Acid Plant Operator Name Role Phone HerFelipa APRN Primary Care Provider [phone] Reason for Visit * Reason Comments large DENISE; hx GHTN; s/p bariatric surger y; CF carrier Encounter Details Date Type Department Care Team (Late st Contact Info) Description 03/09/2025 9:15 AM EDT Office [facility] MATERNAL MEDICINE [address] [place] [phone] Elvira Wang MD [address] [place] [address] Subchorionic hematoma, antepartum, single or unspecified fetus [...] under imaging tab of patient chart in [facility] (Viewpoint report). Elvira Wang MD documented in this encounter Plan of Treatment Not on file documented as of this encounter Visit Diagnoses Diagnosis Subchorionic hematoma, antepartum, single or unspecified fetus- Primary documented in this encounter Additional Health Concerns Assessment Noted Time PHQ-2 Depression Total Score: 5 03/15/20 24 2:17 PM EDT documented as of this encounter Care Teams Contact Acid Plant Operator Relationship Specialty Start Date End Date Felipa Her APRN [address] [place] [address] PCP - General Nurse Practitioner 08/10/23 documented as of this encounter
--- OUTSIDE RECORDS SUMMARY | 2025-04-17 09:21 | XMS_ITS | Referral Summary ---
Author Organization [facility] Address [address] [place] [address] Phone Care Team Providers Care Sample Steamer Name Role Phone Pcp, None MD Primary Care Provider [phone] Allergies No known active allergies Medications Blood Pressure Monitoring (BLOOD PRESSURE MONITOR/L CUFF) [facility] Check blood pressure three times daily. 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 TRACHOMATIS BY AMP RNA Not Detected Not Detected [facility] 2 N. GONORRHOEAE BY AMP RNA Not Detected Not Detected [facility] 2 Comment: (NOTE) Testing methodology is corporate tutor mediated amplification (TMA) using the Aptima Combo 2 assay from [employer]. A negative result does not completely rule [...] upon request. Tested at: [facility], [address] [place] [address] Urine specimen (specimen) URINE SPECIMEN / Unknown 10/09/2021 2:39 PM EST 10/09/2021 8:49 PM EST Josué Silva Jr., MD BODY FLUIDS AND STOOLS ORDERABLES Final Result [facility] [address] [place] [address] CENTRAL RECEIVING [id number] [place] [address] 2 * (ABNORMAL) CYTOLOGY AVIATION MAINTENANCE TECHNICIAN (01/25/2020 11:33 AM EDT) CYTOLOGY-AVIATION MAINTENANCE TECHNICIAN CYTOLOGY GYNECOLOGICAL REPORT Name: PENELOPE MERRITT#: [id number] Case #: [id number] Final Cytologic Diagnosis A. Cervical/Endocervic al thinprep pap: Adequacy: Satisfactory for evaluation, endocervical transformation zone component present. Interpretation: Epithelial cell abnormality: Low-grade squamous intraepithelial lesion. This specimen has been analyzed by the ThinPrep Imaging System ([employer] an automated imaging and review system, which assists the broom builder and/or pathologist in evaluation of cells on Thinprep Pap tests. Flavia Up Electronically Signed Out By Diana Guillen MD Source of Specimen(s) A: Cervical/Endocervic al thinprep pap Clinical History Date of Last Menstrual Period: 01/03/2020 Signed out at [facility], [address] [place] [address] [facility] Non-Formatted Report (A) [facility] 01/25/2020 11:3 3 AM EDT 01/26/2020 3:41 PM EDT us Gordo Trejo MD PATHOLOGY/CYTOLOGY ORDERAB LES Final Result [facility] [address] [place] [address] from Last 3 Months or Most Recently Relevant to Health Maintenance Care Teams Sample Steamer Relationship Specialty Start Date End Date Pcp, None, No Address [place], [place] PCP - General Internal Medicine 02/26/25
--- OUTSIDE RECORDS SUMMARY | 2025-04-17 09:21 | XMS_ITS | Encounter Summary ---
Author Organization [employer] [facility] Address [facility] [place] [address] Phone Care Team Providers Care Commissary Steward Name Role Phone Karishma Torres MD Primary Care Provider [phone] Nola Dowling MD Primary Care Provider Eben Ball MD Primary Care Provide r PcpNagi MD Primary Care Provider [phone] Encounter Details Date Type Department Care Team (Late st Contact Info) Description 11/22/2019 OB Documents TH Care Program [address] [place] [address] [id number] [facility] [place] [address] Social History Tobacco Use Types Packs/Day Years [...] documented as of this encounter Care Teams Commissary Steward Relationship Specialty Start Date End Date Karishma Torres MD PCP - General Family Medicine 03/19/20 02/19/21 Nola Dowling MD PCP - General Family Medicine 02/20/21 02/21/24 Eben Ball MD PCP - General Family Medicine 02/22/24 02/25/25 Nagi Rodriguez MD No Address [place], [place] PCP - General Internal Medicine 02/26/25 documented as of this encounter
--- OUTSIDE RECORDS SUMMARY | 2025-04-17 09:21 | XMS_ITS | Clinical Summary ---
Author Organization [facility] Address [address] [place] [address] Care Team Providers Care Rehabilitation Caseworker Name Role Phone [place] Niya Ellis NP [...] patient's age to complete this topic Insurance [place] MEDICAID [facility] Care Teams Rehabilitation Caseworker Relationship Specialty Start Date End Date Niya Guillen NP [address] [place] [address], [address] [place] [address] PCP - General Family Medicine 03/31/22
--- OUTSIDE RECORDS SUMMARY | 2025-04-17 09:21 | XMS_ITS | Encounter Summary ---
Author Organization [facility] Address [facility] [place] [address] Phone Care Team Providers Care Water System Operator Name Role Phone Karishma Torres MD Primary Care Provider [phone] Nola Dowling MD Primary Care Provider Eben Ball MD Primary Care Provide r Pcp, Nagi HERNANDEZ Primary Care Provider [phone] Encounter Details Date Type Department Care Team (Late st Contact Info) Description 07/27/[address] [address] Morgan Samaniego MD [address] [place] [address] [address] [place] [address] Social History Tobacco Use Types [...] documented as of this encounter Care Teams Water System Operator Relationship Specialty Start Date End Date Karishma Torres MD PCP - General Family Medicine 03/19/20 02/19/21 Nola Dowling MD PCP - General Family Medicine 02/20/21 02/21/24 Eben Ball MD PCP - General Family Medicine 02/22/24 02/25/25 PcpNagi MD No Address [place], [place] PCP - General Internal Medicine 02/26/25 documented as of this encounter
--- OUTSIDE RECORDS SUMMARY | 2025-04-17 09:21 | XMS_ITS | Clinical Summary ---
Author Organization [facility] Address [address] [place] [address] Care Team Providers Care Television Anchor Name Role Phone Felipa Her APRN Primary Care Provider [phone] Allergies No known active allergies Medications hydroCHLOROthiazid e (HYDRODIURIL) 12.5 MG tablet 1 tablet. 03/30/20 23 Active Cholecalciferol (Vitamin D3) 1.25 MG (29941 UT) capsule TAKE ONE CAPSULE BY MOUTH [...] Description 03/09/2025 9:15 AM EDT Office Visit [facility] [address] [facility] [address] [place] [phone] Elvira Wang MD Subchorionic hematoma, antepartum, single or unspecified fetus (Primary Dx) 03/09/2025 8:55 AM EDT - 03/09/2025 11:59 PM EDT Hospital Encounter [facility] PER [facility] [address] [place] [phone] Karolyn Keen MD Previous delivery affecting ; Status post bariatric surgery; Subchorionic hematoma, antepartum, single or unspecified fetus Discharge Disposition: Home or Self Care 03/09/2025 Travel 02/12/2025 1:45 PM EDT Office Visit [facility] [address] [phone] Karolyn Keen MD Previous delivery affecting (Primary Dx); Status post bariatric surgery; Subchorionic hematoma, antepartum, single or unspecified fetus; 20 weeks gestation of 02/12/2025 1:37 PM EDT - 02/12/2025 11:59 PM EDT Hospital Encounter [facility] [address] [place] [phone] Charly Mckinney MD Subchorionic hematoma, antepartum, single or unspecified fetus; , unspecified gestational age; Previous delivery affecting ; Status post bariatric surgery; Morbid obesity with BMI of 40.0-44.9, adult Discharge Disposition: Home or Self Care 02/12/2025 Telephone [facility] [address] [facility] [address] [place] [phone] Lyn Ordoñez, RN 02/12/2025 Travel from Last [...] Procedure Name Priority Date/Time Associated Diagnosis Comments [facility] Routine 03/09/2025 9:29 AM EDT Previous delivery affecting Status post bariatric surgery Subchorionic hematoma, antepartum, single or unspecified fetus [facility] Routine 02/12/2025 2:38 PM EDT Subchorionic hematoma, antepartum, single or unspecified fetus , unspecified gestational age Previous delivery affecting Status post bariatric surgery Morbid obesity with BMI of 40.0-44.9, adult from Last 3 Months Results * [facility] (03/09/2025 9:29 AM EDT) Only the most recent of2 resultswithin the time period is included. Anatomical Region Laterality Modality Ultrasound 03/09/2025 9:07 AM EDT Narrative 03/13/2025 4:51 PM EDT PAT NAME: PENELOPE MERRITT MED REC#: [id number] DA: 2000 PAT GEND: F PAT TYPE: O EXAM PATRICK: [id number] REF PHYS LISSETTE OLIVEROS Comparison Studies The [...] EFW (oz) 4 oz EFW by: Hadlock (CYA-AP-MH-FL) Extended Cav. septi pel. tr 4.6 mm Furniture Duster 6.8 mm CM 8.7 mm 98% Nicolaides [...] IVC: Appears Normal 3-vessel view: Appears normal 6-pbajky-yzctvme view: Appears normal Cord insertion: Normal Stomach: Appears normal Kidneys: Appears normal Bladder: Appears normal Gender: male Wants to know gender: yes Maternal Structures Uterus / Cervix Cervix: Visualized Approach: Transabdominal Cervical length 53.0 mm Impression Cephalic S=D Normal appearing limited anatomy Small anterior DENISE Normal fluid Low lying placenta (posterior) Recommendation Follow up as clinically indicated Bleeding precautions reviewed Coding ======= Description: 38124-52 Follow Up Glass Forming Engineer: RT Roxanne Dawson , RDMS Physician: Elvira Wang MD, FACOG Electronically signed by: Elvira Wang MD, FACOG at: 16:51 Procedure Note Elvira Wang MD - 03/13/2025 PAT [facility] REC#: [id number] DA: 2000 PAT GEND: F PAT TYPE: O EXAM PATRICK: [id number] REF PHYS LISSETTE OLIVEROS Comparison Studies The findings of this study are compared to the prior ultrasound studydated Patient Status Outpatient Indication ======== subchorionic hemorrhage. Obesity BMI 39. H/O gestational hypertension. H/Obariatric surgery Maternal Assessment Upswfk080 cm Height (ft)5 ft Height (in)6 in Egspbm738 kg Weight (lb)240 lb BMI38.57 kg/m Method ======= Transabdominal ultrasound examination. View: Good view ========= Herrera . Number of fetuses: 1 Dating ====== Method of dating:based on stated CAYLA GA by prior ojvvupvyia96 w + 4 d CAYLA by prior assessment:07/02/2025 Ultrasound examination on:03/09/2025 GA by U/S based upon:AC, BPD, Femur, HC GA by U/S23 w + 0 d CAYLA by U/S:07/06/2025 Previous dating:based on stated CAYLA, selected on 12/27/2024 Agreed CAYLA of previous datin07/02/2025 Assigned:based on stated CAYLA, selected on 03/09/2025 Assigned GA23 w + 4 d Assigned CAYLA:07/02/2025 [id number] d Biometry Standard BPD54.5 mm 22w 4d 13% Hadlock OFD74.2 mm 24w 4d 79% Meagan HC206.6 mm 22w 5d 10% Hadlock Cerebellum tr26.6 mm 23w 6d 79% Hill AC184.6 mm 23w 2d 32% Hadlock Femur41.2 mm 23w 3d 31% Hadlock Stqxxhl39.8 mm 23w 5d 45% Meagan HC / AC1.12 SDP079 g 23w 0d 27% Hadlock EFW (lb)1 lb EFW (oz)4 oz EFW by:Hadlock (MPA-VA-PF-FL) Extended Cav. septi pel. tr4.6 mm Vp6.8 mm CM8.7 mm 98% Nicolaides Head / Face / Neck Cephalic index0.73 7% Nicolaides Extremities / Bony Struc FL / BPD0.76 FL / HC0.20 FL / AC0.22 Other Structures SYQ815 bpm General Evaluation Cardiac activity present. FHR [...] SVC:Appears Normal IVC:Appears Normal 3-vessel view:Appears normal 0-sowzih-swoqbln view:Appears normal Cord insertion:Normal Stomach:Appears normal Kidneys:Appears normal Bladder:Appears normal Gender:male Wants to know gender:yes Maternal Structures Uterus / Cervix Cervix:Visualized Approach:Transabdominal Cervical sgytzd21.0 mm Impression Cephalic S=D Normal appearing limited anatomy Small anterior DENISE Normal fluid Low lying placenta (posterior) Recommendation Follow up as clinically indicated Bleeding precautions reviewed Coding ======= Description:42822-21 Follow Up Glass Forming Engineer: RT Roxanne Dawson , [facility] Physician: Elvira Wang MD, FACOG Electronically signed by: Elvira Wang MD, FACOG at: 6:51 Karolyn Keen MD IMG US ORDERABLES Final Res ult from Last 3 Months Insurance [facility] Care Teams Television Anchor Relationship Specialty Start Date End Date Felipa Her APRN [address] [place] [address] [place] [id number] PCP - General Nurse Practitioner 08/10/23
--- OUTSIDE RECORDS SUMMARY | 2025-04-17 09:21 | XMS_ITS | Encounter Summary ---
Author Organization [employer] [facility] Address [facility] [place] [address] Phone Care Team Providers Care Assembly Leader Name Role Phone Karishma Torres MD Primary Care Provider [phone] Nola Dowling MD Primary Care Provider Eben Ball MD Primary Care Provide r PcpNagi MD Primary Care Provider [phone] Encounter Details Date Type Department Care Team (Late st Contact Info) Description 04/19/2019 OB Documents TH Care Program [address] [place] [phone] [facility], [place] [facility] [place] [address] Social History Tobacco Use Types Packs/Day Years [...] documented as of this encounter Care Teams Assembly Leader Relationship Specialty Start Date End Date Karishma Torres MD PCP - General Family Medicine 03/19/20 02/19/21 Nola Dowling MD PCP - General Family Medicine 02/20/21 02/21/24 Eben Ball MD PCP - General Family Medicine 02/22/24 02/25/25 PcpNagi MD No Address [place] PCP - General Internal Medicine 02/26/25 documented as of this encounter
--- OUTSIDE RECORDS SUMMARY | 2025-04-17 09:21 | XMS_ITS | Encounter Summary ---
Author Organization [facility] Address [facility] [place] [address] Phone Care Team Providers Care Line Fixer Name Role Phone Karishma Torres MD Primary Care Provider [phone] Nola Dowling MD Primary Care Provider Eben Ball MD Primary Care Provide r Pcp, Nagi HERNANDEZ Primary Care Provider Encounter Details Date Type Department Care Team (Late st Contact Info) Description 11/04/2020 E-Visit [facility] [address] [place], [place] [address] [address] [place] [address] [place] [id number] [place] [address] RE: RE: Other Topic (See message) Social History Tobacco Use Types Packs/Day Years Used Date Smoking Tobacco: Never Smokeless Tobacco: Never Alcohol Use Standard Drinks/Week Comments Yes 0 (1 standard drink = 0.6 oz pur e alcohol) smirnoff ice twice per year Tarrs Depression Scale Answer Date Recorded Tarrs Depression Scale Total 4 12/20/2019 The thought [...] on filedocumented in this encounter Care Teams Line Fixer Relationship Specialty Start Date End Date Karishma Torres MD PCP - General Family Medicine 03/19/20 02/19/21 Nola Dowling MD PCP - General Family Medicine 02/20/21 02/21/24 Eben Ball MD PCP - General Family Medicine 02/22/24 02/25/25 Pcp, MD Nagi No Address [place], [place] PCP - General Internal Medicine 02/26/25 documented as of this encounter
--- OUTSIDE RECORDS SUMMARY | 2025-04-17 09:21 | XMS_ITS | Clinical Summary ---
Author Organization [facility] Address [address] [place] [address] Phone Care Team Providers Care Liturgical Music Director Name Role Phone Pcp, None MD Primary Care Provider [phone] Allergies No known active allergies Medications Blood Pressure Monitoring (BLOOD PRESSURE MONITOR/L CUFF) [facility] Check blood pressure three times daily. 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 TRACHOMATIS BY AMP RNA Not Detected Not Detected [facility] 2 N. GONORRHOEAE BY AMP RNA Not Detected Not Detected [facility] 2 Comment: (NOTE) Testing methodology is cosmetologist apprentice mediated amplification (TMA) using the Aptima Combo 2 assay from [employer]. A negative result does not completely rule [...] methodology is available upon request. Tested at: [facility], [address] [place] [address] Urine specimen (specimen) URINE SPECIMEN / Unknown 10/09/2021 2:39 PM EST 10/09/2021 8:49 PM EST us Josué Silva Jr., MD BODY FLUIDS AND STOOLS ORDERABLES Final Result [facility] [address] [place] [id number] [place] [address] 2 * (ABNORMAL) CYTOLOGY RODBUSTER (01/25/2020 11:33 AM EDT) CYTOLOGY-RODBUSTER CYTOLOGY GYNECOLOGICAL REPORT Name: PENELOPE MERRITT#: [id number] Case #: [id number] Final Cytologic Diagnosis A. Cervical/Endocervic al thinprep pap: Adequacy: Satisfactory for evaluation, endocervical transformation zone component present. Interpretation: Epithelial cell abnormality: Low-grade squamous intraepithelial lesion. This specimen has been analyzed by the ThinPrep Imaging System ([employer] an automated imaging and review system, which assists the histology teacher and/or pathologist in evaluation of cells on Thinprep Pap tests. Flavia Up Electronically Signed Out By Diana Guillen MD Source of Specimen(s) A: Cervical/Endocervic al thinprep pap Clinical History Date of Last Menstrual Period: 01/03/2020 Signed out at [facility], [address] [place] [address] [facility] Non-Formatted Report (A) [facility] 01/25/2020 11:3 3 AM EDT 01/26/2020 3:41 PM EDT Gordo Trejo MD PATHOLOGY/CYTOLOGY ORDERAB LES Final Result [facility] [address] [place], [place] [id number] from Last 3 Months or Most Recently Relevant to Health Maintenance Advance Directives * Full Code (Latest Code Status on File) Date Activated Date Inactivated Comments 11/23/2019 12:21 AM 11/24/2019 2:14 PM * Full Code Date Activated Date Inactivated Comments 11/22/2019 10:21 AM 11/23/2019 12:20 AM Care Teams Liturgical Music Director Relationship Specialty Start Date End Date Pcp, MD Nagi No Address [place], [place] PCP - General Internal Medicine 02/26/25
--- OUTSIDE RECORDS SUMMARY | 2025-04-17 09:22 | XMS_ITS | Clinical Summary ---
Author Organization [facility] Address [address] [facility] [address], [address] [place] [address] Care Team Providers Care Bottling Machine Operator Name Role Phone [facility] Primary Care Provider Unav ailable Allergies [...] Plan of Treatment Not on file Insurance [facility] [place] Care Teams Bottling Machine Operator Relationship Specialty Start Date End Date [facility] PCP - General 07/29/21
--- OUTSIDE RECORDS SUMMARY | 2025-04-17 09:22 | XMS_ITS | Encounter Summary ---
Author Organization [facility] Address [address] [place] [address] Care Team Providers Care Sizing Sponger Name Role Phone Felipa Her APRN Primary Care Provider [phone] Encounter Details Date Type Department Care Team [...] documented as of this encounter Care Teams Sizing Sponger Relationship Specialty Start Date End Date Felipa Her APRN [address] [place] PCP - General Nurse Practitioner 08/10/23 documented as of this encounter
--- OUTSIDE RECORDS SUMMARY | 2025-04-17 09:22 | XMS_ITS | Encounter Summary ---
Author Organization [facility] Address [facility] [place] [address] Phone Care Team Providers Care Wind Field Service Manager Name Role Phone Karishma Torres MD Primary Care Provider [phone] Nola Dowling MD Primary Care Provider Eben Ball MD Primary Care Provide r Pcp, Nagi HERNANDEZ Primary Care Provider Encounter Details Date Type Department Care Team (Late st Contact Info) Description 07/26/[address] [address] Morgan Samaniego MD [address] [place] [address] [address] [place] [address] Social History Tobacco Use Types [...] documented as of this encounter Care Teams Wind Field Service Manager Relationship Specialty Start Date End Date Karishma Torres MD PCP - General Family Medicine 03/19/20 02/19/21 Nola Dowling MD PCP - General Family Medicine 02/20/21 02/21/24 Eben Ball MD PCP - General Family Medicine 02/22/24 02/25/25 PcpNagi MD No Address [place], [place] PCP - General Internal Medicine 02/26/25 documented as of this encounter
[2025-04-17 10:48] LABS: Ferritin 64.3 ng/ml (6.24-137)
== END 2025-04-17 23:59 | disposition home or self-care (01) ==
LOC: LAB 09:18
PROVIDERS: PCP Nurse Practitioner Family; Visit Provider Obstetrics & Gynecology
DX: O99.844 Bariatric surgery status complicating childbirth (principal); O09.299 Supervision of pregnancy with other poor reproductive or obstetric history, unspecified trimester; Z3A.00 Weeks of gestation of pregnancy not specified
CPT/HCPCS: 36415; 82728

== ENCOUNTER 2025-04-18 10:52 | Outpatient (CLI) | payer OTHER, SELFPAY ==
--- OUTSIDE RECORDS SUMMARY | 2017-04-29 08:24 | XMS_ITS | Continuity of Care Document ---
Author Organization [facility] Address [address] [place] [address] Phone Care Team Providers Care Curriculum And Instruction Director Name Role Phone Bijan Jang DO Unavailable Unavailable Advance Directives Directive Yes / No Effective Date File Name No Information Encounters Encounter Description Practice Location Reason(s) For Visit Diagnoses Date Provider Providers Copied on Encounter [facility], [address], [place], [place], [id number], [place] tel:[phone] [address] [place] [address] No Information 7 Suhail Livingston. [address], [place], [address], [place]. tel:[phone] Family History Family Member Type Diagnosis Age At Onset No Information Immunizations Vaccine Date Status Comments Tdap (Adacel) administered Note: Tdap gi [facility] by [facility] ; Source: Other Registry Payers Payer name Insurance type Covered alliance party ID Authoriza tion(s) No Information Social History Type Description Quantity Date Captured Comments Sex Female Smoking Status No Information Chief Complaint And Reason For Visit No Information Reason For Referral Reason For Referral No Information History Of Present Illness Encounter Date Complaint History Of Prese nt Illness No Information Functional Status Date Functional Assessmen t No Information Instructions Date Instruction Additional Infor mation No Information Assessments Type Assessment Date No Information Patient Care Teams Name Effective Dates (start - stop) Status Members No Information
--- OUTSIDE RECORDS SUMMARY | 2025-03-09 08:55 | XMS_ITS | Encounter Summary ---
Author Organization [facility] Address [address] [place] [address] Care Team Providers Care Short Order Cook Name Role Phone Felipa Her APRN Primary Care Provider [phone] Reason for Referral * Diagnostic Imaging (Routine) - Closed Specialty Diagnoses / Procedures Referred By Contact Referred To Contact Obstetrics and Gynecology Diagnoses Previous delivery affecting Status post bariatric surgery Subchorionic hematoma, antepartum, single or unspecified fetus Procedures [facility] Karolyn Keen MD [address] [place] [address] Phone: tel: fax: [facility] MATERNAL MEDICINE [address] [address] Phone: tel: fax: Referral ID Status Reason Start Date Expiration Date Visits Re quested Visits Authorized [id number] Closed 02/12/2025 05/14/2026 1 1 Reason for Visit * Diagnostic Imaging (Routine) - Closed Specialty Diagnoses / Procedures Referred By Contact Referred To Contact Obstetrics and Gynecology Diagnoses Previous delivery affecting Status post bariatric surgery Subchorionic hematoma, antepartum, single or unspecified fetus Procedures [facility] Karolyn Keen MD [address] [address] Phone: tel: fax: [facility] MATERNAL MEDICINE [address] [facility] [address] [place] [address] Phone: tel: fax: Referral ID Status Reason Start Date Expiration Date Visits Re quested Visits Authorized [id number] Closed 02/12/2025 05/14/2026 1 1 Encounter Details Date Type Department Care Team (Late st Contact Info) Description 03/09/2025 8:55 AM EDT - 03/09/2025 11:59 PM EDT Hospital Encounter [facility] [address] [place] [address] Karolyn Keen MD [address] [facility] [address] [place] [address] Previous delivery affecting ; Status post bariatric [...] of Discharge Cholecalciferol (Vitamin D3) 1.25 MG (31740 UT) capsule TAKE ONE CAPSULE BY MOUTH [...] Procedure Name Priority Date/Time Associated Diagnosis Comments [facility] Routine 03/09/2025 9:29 AM EDT Previous delivery affecting Status post bariatric surgery Subchorionic hematoma, antepartum, single or unspecified fetus documented in this encounter Results * [facility] (03/09/2025 9:29 AM EDT) Anatomical Region Laterality Modality Ultrasound 03/09/2025 9:07 AM EDT Narrative 03/13/2025 4:51 PM EDT PAT NAME: PENELOPE MERRITT [facility] REC#: [id number] DA: [id number] PAT GEND: F PAT TYPE: O EXAM PATRICK: [id number] REF PHYS LISSETTE OLIVEROS Comparison Studies The [...] EFW (oz) 4 oz EFW by: Hadlock ([id number]) Extended Cav. septi pel. tr 4.6 mm Multimedia Project Manager 6.8 mm CM 8.7 mm 98% Nicolaides [...] IVC: Appears Normal 3-vessel view: Appears normal 5-uwzfdv-tsnvvsi view: Appears normal Cord insertion: Normal Stomach: Appears normal Kidneys: Appears normal Bladder: Appears normal Gender: male Wants to know gender: yes Maternal Structures Uterus / Cervix Cervix: Visualized Approach: Transabdominal Cervical length 53.0 mm Impression Cephalic S=D Normal appearing limited anatomy Small anterior DENISE Normal fluid Low lying placenta (posterior) Recommendation Follow up as clinically indicated Bleeding precautions reviewed Coding ======= Description: 06773-65 Follow Up Reprographics Technician: RT Roxanne Dawson , [facility] [place] Physician: Elvira Wang MD, FACOG Electronically signed by: Elvira Wang MD, FACOG at: 16:51 Procedure Note Elvira Wang MD - 03/13/2025 PAT NAME: PENELOPE MERRITT MED REC#: [id number] DA: [id number] PAT GEND: F PAT TYPE: O EXAM PATRICK: [id number] REF PHYS LISSETTE OLIVEROS Comparison Studies The findings of this study are compared to the prior ultrasound studydated Patient Status Outpatient Indication ======== subchorionic hemorrhage. Obesity BMI 39. H/O gestational hypertension. H/Obariatric surgery Maternal Assessment Bjywvp418 cm Height (ft)5 ft Height (in)6 in Wsmpbi579 kg Weight (lb)240 lb BMI38.57 kg/m Method ======= Transabdominal ultrasound examination. View: Good view ========= Herrera . Number of fetuses: 1 Dating ====== Method of dating:based on stated CAYLA GA by prior [id number] w + 4 d CAYLA by prior assessment:07/02/2025 Ultrasound examination on:03/09/2025 GA by U/S based upon:AC, BPD, Femur, HC GA by U/S23 w + 0 d CAYLA by U/S:07/06/2025 Previous dating:based on stated CAYLA, selected on 12/27/2024 Agreed CAYLA of previous datin07/02/2025 Assigned:based on stated CAYLA, selected on 03/09/2025 Assigned GA23 w + 4 d Assigned CAYLA:07/02/2025 [id number] d Biometry Standard BPD54.5 mm 22w 4d 13% Hadlock OFD74.2 mm 24w 4d 79% Meagan HC206.6 mm 22w 5d 10% Hadlock Cerebellum tr26.6 mm 23w 6d 79% Hill AC184.6 mm 23w 2d 32% Hadlock Femur41.2 mm 23w 3d 31% Hadlock Bxxcdls01.8 mm 23w 5d 45% Meagan HC / AC1.12 GVN876 g 23w 0d 27% Hadlock EFW (lb)1 lb EFW (oz)4 oz EFW by:Hadlock ([id number]) Extended Cav. septi pel. tr4.6 mm Vp6.8 mm CM8.7 mm 98% Nicolaides Head / Face / Neck Cephalic index0.73 7% Nicolaides Extremities / Bony Struc FL / BPD0.76 FL / HC0.20 FL / AC0.22 Other Structures [id number] bpm General Evaluation Cardiac activity present. FHR [...] SVC:Appears Normal IVC:Appears Normal 3-vessel view:Appears normal 0-oqsurg-rnglawv view:Appears normal Cord insertion:Normal Stomach:Appears normal Kidneys:Appears normal Bladder:Appears normal Gender:male Wants to know gender:yes Maternal Structures Uterus / Cervix Cervix:Visualized Approach:Transabdominal Cervical veoimk35.0 mm Impression Cephalic S=D Normal appearing limited anatomy Small anterior DENISE Normal fluid Low lying placenta (posterior) Recommendation Follow up as clinically indicated Bleeding precautions reviewed Coding ======= Description:63512-64 Follow Up Reprographics Technician: RT Roxanne Dawson , [facility] [place] Physician: Elvira Wang MD, FACOG Electronically signed [...] documented as of this encounter Care Teams Short Order Cook Relationship Specialty Start Date End Date Felipa Her APRN [address] [place] [address] PCP - General Nurse Practitioner 08/10/23 documented as of this encounter
--- OUTSIDE RECORDS SUMMARY | 2025-03-09 09:15 | XMS_ITS | Encounter Summary ---
Author Organization [facility] Address [address] [place] [address] Care Team Providers Care Flute Teacher Name Role Phone HerFelipa APRN Primary Care Provider [phone] Reason for Visit * Reason Comments large DENISE; hx GHTN; s/p bariatric surger y; CF carrier Encounter Details Date Type Department Care Team (Late st Contact Info) Description 03/09/2025 9:15 AM EDT Office Visit [facility] MATERNAL MEDICINE [address] [place] [phone] Elvira Wang MD [address] [place] [address] Subchorionic hematoma, antepartum, single or unspecified fetus [...] under imaging tab of patient chart in [facility] (Viewpoint report). Elvira Wang MD documented in this encounter Plan of Treatment Not on file documented as of this encounter Visit Diagnoses Diagnosis Subchorionic hematoma, antepartum, single or unspecified fetus- Primary documented in this encounter Additional Health Concerns Assessment Noted Time PHQ-2 Depression Total Score: 5 03/15/20 24 2:17 PM EDT documented as of this encounter Care Teams Flute Teacher Relationship Specialty Start Date End Date Felipa Her APRN [address] [place] [address] PCP - General Nurse Practitioner 08/10/23 documented as of this encounter
--- OUTSIDE RECORDS SUMMARY | 2025-04-18 11:01 | XMS_ITS | Clinical Summary ---
Author Organization [facility] Address [address], [address] [place] [address] Care Team Providers Care Dairy Hand Name Role Phone [facility] Primary Care Provider Unav ailable Allergies No [...] Plan of Treatment Not on file Insurance [facility] [place] Care Teams Dairy Hand Relationship Specialty Start Date End Date [facility] PCP - General 07/29/21
--- OUTSIDE RECORDS SUMMARY | 2025-04-18 11:01 | XMS_ITS | Clinical Summary ---
Author Organization [facility] Address [address] [place] [address] Care Team Providers Care Watch Supervisor Name Role Phone Wilmer Niya Ellis NP [...] patient's age to complete this topic Insurance [place] MEDICAID [facility] Care Teams Watch Supervisor Relationship Specialty Start Date End Date Niya Guillen NP [address] [place] [address], [address] [place] [address] PCP - General Family Medicine 03/31/22
--- OUTSIDE RECORDS SUMMARY | 2025-04-18 11:01 | XMS_ITS | Encounter Summary ---
Author Organization [facility] Address [address] [place] [address] Care Team Providers Care Flyer Repairer Name Role Phone Felipa Her APRN Primary Care Provider [phone] Encounter Details Date Type Department Care Team [...] documented as of this encounter Care Teams Flyer Repairer Relationship Specialty Start Date End Date Felipa Her APRN [address] [place] PCP - General Nurse Practitioner 08/10/23 documented as of this encounter
--- OUTSIDE RECORDS SUMMARY | 2025-04-18 11:01 | XMS_ITS | Clinical Summary ---
Author Organization [facility] Address [address] [place] [address] Care Team Providers Care Distribution Operation Supervisor Name Role Phone Felipa Her APRN Primary Care Provider [phone] Allergies No known active allergies Medications hydroCHLOROthiazid e (HYDRODIURIL) 12.5 MG tablet 1 tablet. 03/30/20 23 Active Cholecalciferol (Vitamin D3) 1.25 MG (37704 UT) capsule TAKE ONE CAPSULE BY MOUTH [...] Description 03/09/2025 9:15 AM EDT Office Visit [facility] MATERNAL MEDICINE [address] [facility] [address] [place] [phone] Elvira Wang MD Subchorionic hematoma, antepartum, single or unspecified fetus (Primary Dx) 03/09/2025 8:55 AM EDT - 03/09/2025 11:59 PM EDT Hospital Encounter [facility] US PER DIAG CTR [address] [place] [phone] Karolyn Keen MD Previous delivery affecting ; Status post bariatric surgery; Subchorionic hematoma, antepartum, single or unspecified fetus Discharge Disposition: Home or Self Care 03/09/2025 Travel 02/12/2025 1:45 PM EDT Office Visit [facility] MATERNAL MEDICINE [address] [phone] Karolyn Keen MD Previous delivery affecting (Primary Dx); Status post bariatric surgery; Subchorionic hematoma, antepartum, single or unspecified fetus; 20 weeks gestation of 02/12/2025 1:37 PM EDT - 02/12/2025 11:59 PM EDT Hospital Encounter [facility] US PER DIAG CTR [address] [place] [phone] Charly Mckinney MD Subchorionic hematoma, antepartum, single or unspecified fetus; , unspecified gestational age; Previous delivery affecting ; Status post bariatric surgery; Morbid obesity with BMI of 40.0-44.9, adult Discharge Disposition: Home or Self Care 02/12/2025 Telephone [facility] MAT[facility]NAL MEDICINE [address] [facility] [address] [place] [phone] Lyn Ordoñez, RN 02/12/2025 Travel from Last [...] Procedure Name Priority Date/Time Associated Diagnosis Comments [facility] Routine 03/09/2025 9:29 AM EDT Previous delivery affecting Status post bariatric surgery Subchorionic hematoma, antepartum, single or unspecified fetus [facility] Routine 02/12/2025 2:38 PM EDT Subchorionic hematoma, antepartum, single or unspecified fetus , unspecified gestational age Previous delivery affecting Status post bariatric surgery Morbid obesity with BMI of 40.0-44.9, adult from Last 3 Months Results * [facility] (03/09/2025 9:29 AM EDT) Only the most recent of2 resultswithin the time period is included. Anatomical Region Laterality Modality Ultrasound 03/09/2025 9:07 AM EDT Narrative 03/13/2025 4:51 PM EDT PAT NAME: PENELOPE MERRITT MED REC#: [id number] DA: 2000 PAT GEND: F PAT TYPE: O EXAM PATRICK: [id number] REF PHYS LISSETTE OLIVEROS Comparison Studies The [...] EFW (oz) 4 oz EFW by: Hadlock (AFM-N[place]-[id number]-FL) Extended Cav. septi pel. tr 4.6 mm Cpa Tax 6.8 mm CM 8.7 mm 98% Nicolaides [...] IVC: Appears Normal 3-vessel view: Appears normal 3-framcj-imbnpke view: Appears normal Cord insertion: Normal Stomach: Appears normal Kidneys: Appears normal Bladder: Appears normal Gender: male Wants to know gender: yes Maternal Structures Uterus / Cervix Cervix: Visualized Approach: Transabdominal Cervical length 53.0 mm Impression Cephalic S=D Normal appearing limited anatomy Small anterior DENISE Normal fluid Low lying placenta (posterior) Recommendation Follow up as clinically indicated Bleeding precautions reviewed Coding ======= Description: 12108-51 Follow Up Cord Cutter: RT Roxanne Dawson , RDMS Physician: Elvira Wang MD, FACOG Electronically signed by: Elvira Wang MD, FACOG at: 16:51 Procedure Note Elvira Wang MD - 03/13/2025 [facility] REC#: [id number] DA: 2000 PAT GEND: F PAT TYPE: O EXAM PATRICK: [id number] REF PHYS LISSETTE OLIVEROS Comparison Studies The findings of this study are compared to the prior ultrasound studydated Patient Status Outpatient Indication ======== subchorionic hemorrhage. Obesity BMI 39. H/O gestational hypertension. H/Obariatric surgery Maternal Assessment Pghdmy409 cm Height (ft)5 ft Height (in)6 in Kxgkpy423 kg Weight (lb)240 lb BMI38.57 kg/m Method ======= Transabdominal ultrasound examination. View: Good view ========= Herrera . Number of fetuses: 1 Dating ====== Method of dating:based on stated CAYLA GA by prior [email or web address] w + 4 d CAYLA by prior assessment:07/02/2025 Ultrasound examination on:03/09/2025 GA by U/S based upon:AC, BPD, Femur, HC GA by U/S23 w + 0 d CAYLA by U/S:07/06/2025 Previous dating:based on stated CAYLA, selected on 12/27/2024 Agreed CAYLA of previous datin07/02/2025 Assigned:based on stated CAYLA, selected on 03/09/2025 Assigned GA23 w + 4 d Assigned CAYLA:07/02/2025 [id number] d Biometry Standard BPD54.5 mm 22w 4d 13% Hadlock OFD74.2 mm 24w 4d 79% Meagan HC206.6 mm 22w 5d 10% Hadlock Cerebellum tr26.6 mm 23w 6d 79% Hill AC184.6 mm 23w 2d 32% Hadlock Femur41.2 mm 23w 3d 31% Hadlock Ddzrmzf88.8 mm 23w 5d 45% Meagan HC / AC1.12 RHF625 g 23w 0d 27% Hadlock EFW (lb)1 lb EFW (oz)4 oz EFW by:Hadlock (FGM-AL-UY-FL) Extended Cav. septi pel. tr4.6 mm Vp6.8 mm CM8.7 mm 98% Nicolaides Head / Face / Neck Cephalic index0.73 7% Nicolaides Extremities / Bony Struc FL / BPD0.76 FL / HC0.20 FL / AC0.22 Other Structures WDH734 bpm General Evaluation Cardiac activity present. FHR [...] SVC:Appears Normal IVC:Appears Normal 3-vessel view:Appears normal 6-seubue-lohzbip view:Appears normal Cord insertion:Normal Stomach:Appears normal Kidneys:Appears normal Bladder:Appears normal Gender:male Wants to know gender:yes Maternal Structures Uterus / Cervix Cervix:Visualized Approach:Transabdominal Cervical jsmnem31.0 mm Impression Cephalic S=D Normal appearing limited anatomy Small anterior DENISE Normal fluid Low lying placenta (posterior) Recommendation Follow up as clinically indicated Bleeding precautions reviewed Coding ======= Description:68983-82 Follow Up Cord Cutter: RT Roxanne Dawson , [facility] Physician: Elvira Wang MD, FACOG Electronically signed by: Elvira Wang MD, FACOG at: 6:51 Karolyn Keen MD IMG US ORDERABLES Final Res ult from Last 3 Months Insurance [facility] PL[facility] Care Teams Distribution Operation Supervisor Relationship Specialty Start Date End Date Felipa Her APRN [address] [place] [address] PCP - General Nurse Practitioner 08/10/23
[2025-04-18 11:25] LABS: Hematocrit 33.8 % (37.0-47.0); Hemoglobin 11.4 g/dL (12.2-16.2); Immature Granulocytes % 0.3 %; Mean Corpuscular HGB Conc 33.7 g/dL (31.8-35.4); Mean Corpuscular Hemoglobin 31.0 pg (27.0-31.2); Mean Corpuscular Volume 91.8 fl (81-99); Nucleated Red Blood Cells % 0 %; Platelet Count 215 K/mm3 (142-424); Red Blood Count 3.68 M/mm3 (4.20-5.40); Red Cell Distribution Width-SD 50.4 fL; White Blood Count 6.8 K/mm3 (4.8-10.8)
--- NOTE | 2025-04-18 13:30 | US_ITS ---
PROCEDURE: US OB BIOPHYSICAL PROFILE CLINICAL INDICATION: Needs for LGA/DENISE w/ BALDOMERO COMPARISON: US US OB <= 14 WEEKS FETUS from 12/14/2024 US US OB <= 14 WEEKS FETUS from 12/28/2024 US OB TRANSVAGINAL from 01/16/2025 US OB FOLLOW UP from 01/16/2025 US OB /MATERNAL DETAIL from 02/14/2025 US OB FOLLOW UP from 03/08/2025 FINDINGS: Transabdominal sonographic images of the uterus were obtained. From her established due date she is 29weeks 2days. The following parameters are obtained: Viable Fetus in the cephalic presentation with a posterior placenta grade 1. No evidence of subchorionic hemorrhage. Average ultrasound age is 29weeks 4days Estimated weight 1,296g, 2 lb 14 oz The cervix measures 3.5 cm-4.0 cm in length. Measurements: heart Rate = 139bpm BPD = 30weeks 1day, 63 percentile HC = 30weeks 2days, 43 percentile AC = 28weeks 2days, 17 percentile FL = 29weeks 1day, 30 percentile HC/AC is 1.15 FL/BPD is 0.74 FL/AC is 0.23 23 percentile Amniotic fluid index: 13.13cm, MVP 4.11 cm. Qualitative AFV:2 Breathing movements: 2 Gross Body Movements: 2 Tone: 2 Biophysical profile score: 8 No obvious anomalies evident.Kidneys, stomach, bladder, lips, nose, four-chamber heart, three-vessel cord appear normal. IMPRESSION: 1. Viable fetus in the cephalic presentation with a posterior placenta grade 1. The previously described subchorionic hemorrhage has completely resolved. 2. The fluid is within normal limits with an amniotic fluid index 13.13 cm, MVP 4.11 cm. 3. Biophysical profile is 8/8 with good breathing movement and movement seen. 4. There has been good interval growth with the fetus currently 23rd percentile. 5. Limited anatomical scan appears normal. Dictated by: Gerber Mcgrath MD 04/18/2025 16:11 Gerber Mcgrath MD in OV 04/18/2025 16:11
[2025-04-18 13:46] LABS: Albumin Level 3.3 g/dl (3.5-5.0); Chloride 107 mmol/L (98-107)
[2025-04-18 13:47] LABS: Potassium 3.9 mmoL/L (3.5-5.1); Sodium 134 mmol/L (136-145)
[2025-04-18 13:49] LABS: Alanine Aminotransferase 14 U/L (12-78); Alkaline Phosphatase 75 U/L (38-126); Anion Gap 7.9 mEq/L (5-15); Aspartate Amino Transferase 27 U/L (14-36); Bilirubin,Total 0.6 mg/dl (0.2-1.3); Blood Urea Nitrogen 7 mg/dl (7-17); Carbon Dioxide 23 mmol/L (22.0-30.0); Creatinine,Serum 0.40 mg/dl (0.52-1.04); Estimated Glomerular Filt Rate 193 ml/min (>60); GFR (African American) 233 ML/MIN (>60)
[2025-04-18 13:50] LABS: Albumin/Globulin Ratio 1.3 (1.1-1.8); Calcium 8.7 mg/dl (8.4-10.2); Globulin 2.5 g/dL (1.3-3.2); Glucose 76 mg/dl (74-100); Total Protein,Serum 5.8 g/dl (6.3-8.2)
== END 2025-04-18 23:59 | disposition home or self-care (01) ==
LOC: RAD 10:52
PROVIDERS: PCP Nurse Practitioner Family; Visit Provider Obstetrics & Gynecology
DX: O16.3 Unspecified maternal hypertension, third trimester (principal); O99.843 Bariatric surgery status complicating pregnancy, third trimester; O09.293 Supervision of pregnancy with other poor reproductive or obstetric history, third trimester; O23.43 Unspecified infection of urinary tract in pregnancy, third trimester; O46.8X3 Other antepartum hemorrhage, third trimester; O99.213 Obesity complicating pregnancy, third trimester; N39.0 Urinary tract infection, site not specified; E66.01 Morbid (severe) obesity due to excess calories; Z3A.29 29 weeks gestation of pregnancy; Z86.32 Personal history of gestational diabetes; O36.63X0 Maternal care for excessive fetal growth, third trimester, not applicable or unspecified
CPT/HCPCS: 36415; 76816; 76819; 80053; 85025; 87086

== ENCOUNTER 2025-05-14 12:54 | Outpatient (CLI) | payer OTHER, SELFPAY ==
--- OUTSIDE RECORDS SUMMARY | 2025-05-14 12:57 | XMS_ITS | Patient Health Record ---
[facility] Address [address] [place] [id number] Care Team Providers Care Supervisor Ski Production Name Role Phone Thor May Primary Care Provider Unavail able Roxanne Dillon Unavailable [phone] Reason For Referral No Information Medications Medication SIG (Take, Route, Frequency, Duration) Notes Start Date End Date Status A TUSS DM 1/ 1 TSP PO QID; Duration: PRN *Please review for potential replacement for e-prescription and drug interaction check* Active Plan Of Treatment No Information Medical (General) History Surgical History Surgery Date(Month/Year) adnoidectomy tonsillectomy
--- OUTSIDE RECORDS SUMMARY | 2025-05-14 12:57 | XMS_ITS | Clinical Summary ---
Author Organization [facility] Address [address], [address] [place] [address] Care Team Providers Care Finger Buffs Assembler Name Role Phone [facility] Primary Care Provider Unav ailable Allergies No [...] Plan of Treatment Not on file Insurance [facility] [place] Care Teams Finger Buffs Assembler Relationship Specialty Start Date End Date [facility] PCP - General 07/29/21
--- OUTSIDE RECORDS SUMMARY | 2025-05-14 12:57 | XMS_ITS | Clinical Summary ---
Author Organization [facility] Address [address] [place] [address] Care Team Providers Care Cutter And Presser Name Role Phone Felipa Her APRN Primary Care Provider [phone] Allergies No known active allergies Medications hydroCHLOROthiazid e (HYDRODIURIL) 12.5 MG tablet 1 tablet. 03/30/20 23 Active Cholecalciferol (Vitamin D3) 1.25 MG (75228 UT) capsule TAKE ONE CAPSULE BY MOUTH [...] Description 03/09/2025 9:15 AM EDT Office Visit [facility] MATERNAL MEDICINE [address] [facility] [address] [place] [phone] Elvira Wang MD Subchorionic hematoma, antepartum, single or unspecified fetus (Primary Dx) 03/09/2025 8:55 AM EDT - 03/09/2025 11:59 PM EDT Hospital Encounter [facility] US PER DIAG CTR [address] [place] [phone] Karolyn Keen MD Previous delivery affecting ; Status post bariatric surgery; Subchorionic hematoma, antepartum, single or unspecified fetus Discharge Disposition: Home or Self Care 03/09/2025 Travel 02/12/2025 1:45 PM EDT Office Visit [facility] MATERNAL MEDICINE [address] [phone] Karolyn Keen MD Previous delivery affecting (Primary Dx); Status post bariatric surgery; Subchorionic hematoma, antepartum, single or unspecified fetus; 20 weeks gestation of 02/12/2025 1:37 PM EDT - 02/12/2025 11:59 PM EDT Hospital Encounter [facility] US PER DIAG CTR [address] [place] [phone] Charly Mckinney MD Subchorionic hematoma, antepartum, single or unspecified fetus; , unspecified gestational age; Previous delivery affecting ; Status post bariatric surgery; Morbid obesity with BMI of 40.0-44.9, adult Discharge Disposition: Home or Self Care 02/12/2025 Telephone [facility] MATERNAL MEDICINE [address] [facility] [address] [place] [phone] Lyn Ordoñez, RN 02/12/2025 Travel from Last [...] ANNUAL PHYSICAL 08/18/2023 HEPATITIS C SCREENING 08/18/2023 INFLUENZA VACCINE 03/23/2025 06/05/2015, , 05/10/2013, Additional history exists RSV Vaccine - Adults (1 - Risk 1-dose series) 05/07/2025 TDAP/TD VACCINES (2 - Td or Tdap) 06/05/2025 06/05/2015 HPV VACCINES Completed 12/08/2012, 110 04/2012, 05/31/2012 Pneumococcal Vaccine 0-49 Aged Out No longer eligible based on patient's age to complete this topic Procedures Procedure Name Priority Date/Time Associated Diagnosis Comments [facility] Routine 03/09/2025 9:29 AM EDT Previous delivery affecting Status post bariatric surgery Subchorionic hematoma, antepartum, single or unspecified fetus [facility] Routine 02/12/2025 2:38 PM EDT Subchorionic hematoma, antepartum, single or unspecified fetus , unspecified gestational age Previous delivery affecting Status post bariatric surgery Morbid obesity with BMI of 40.0-44.9, adult from Last 3 Months Results * [facility] (03/09/2025 9:29 AM EDT) Only the most recent of2 resultswithin the time period is included. Anatomical Region Laterality Modality Ultrasound 03/09/2025 9:07 AM EDT Narrative 03/13/2025 4:51 PM EDT PAT NAME: PENELOPE MERRITT MED REC#: [id number] DA: 2000 PAT GEND: F PAT TYPE: O EXAM PATRICK: [id number] REF PHYS ANA OLIVEROSLEY Comparison Studies The [...] EFW (oz) 4 oz EFW by: Hadlock (YMI-PI-KQ-FL) Extended Cav. septi pel. tr 4.6 mm Natural Resource Officer 6.8 mm CM 8.7 mm 98% Nicolaides [...] IVC: Appears Normal 3-vessel view: Appears normal 0-miiqzq-papjsju view: Appears normal Cord insertion: Normal Stomach: Appears normal Kidneys: Appears normal Bladder: Appears normal Gender: male Wants to know gender: yes Maternal Structures Uterus / Cervix Cervix: Visualized Approach: Transabdominal Cervical length 53.0 mm Impression Cephalic S=D Normal appearing limited anatomy Small anterior DENISE Normal fluid Low lying placenta (posterior) Recommendation Follow up as clinically indicated Bleeding precautions reviewed Coding ======= Description: 27960-46 Follow Up Customer Success Associate: RT Roxanne Dawson , [facility] Physician: Elvira Wang MD, FACOG Electronically signed by: Elvira Wang MD, FACOG at: 16:51 Procedure Note Elvira Wang MD - 03/13/2025 PAT NAME: [facility] REC#: [id number] DA: 2000 PAT GEND: F PAT TYPE: O EXAM PATRICK: [id number] REF PHYS LISSETTE OLIVEROS Comparison Studies The findings of this study are compared to the prior ultrasound studydated Patient Status Outpatient Indication ======== subchorionic hemorrhage. Obesity BMI 39. H/O gestational hypertension. H/Obariatric surgery Maternal Assessment Vqchwh867 cm Height (ft)5 ft Height (in)6 in Ynrzat738 kg Weight (lb)240 lb BMI38.57 kg/m Method ======= Transabdominal ultrasound examination. View: Good view ========= Herrera . Number of fetuses: 1 Dating ====== Method of dating:based on stated CAYLA GA by prior [email or web address] w + 4 d CAYLA by prior assessment:07/02/2025 Ultrasound examination on:03/09/2025 GA by U/S based upon:AC, BPD, Femur, HC GA by U/S23 w + 0 d CAYLA by U/S:07/06/2025 Previous dating:based on stated CAYLA, selected on 12/27/2024 Agreed CAYLA of previous datin07/02/2025 Assigned:based on stated CAYLA, selected on 03/09/2025 Assigned GA23 w + 4 d Assigned CAYLA:07/02/2025 [id number] d Biometry Standard BPD54.5 mm 22w 4d 13% Hadlock OFD74.2 mm 24w 4d 79% Meagan HC206.6 mm 22w 5d 10% Hadlock Cerebellum tr26.6 mm 23w 6d 79% Hill AC184.6 mm 23w 2d 32% Hadlock Femur41.2 mm 23w 3d 31% Hadlock Lxlddko54.8 mm 23w 5d 45% Meagan HC / AC1.12 IGU036 g 23w 0d 27% Hadlock EFW (lb)1 lb EFW (oz)4 oz EFW by:Hadlock (BUU-CI-OT-FL) Extended Cav. septi pel. tr4.6 mm Vp6.8 mm CM8.7 mm 98% Nicolaides Head / Face / Neck Cephalic index0.73 7% Nicolaides Extremities / Bony Struc FL / BPD0.76 FL / HC0.20 FL / AC0.22 Other Structures RNU702 bpm General Evaluation Cardiac activity present. FHR [...] SVC:Appears Normal IVC:Appears Normal 3-vessel view:Appears normal 9-qcpdab-zokgjdz view:Appears normal Cord insertion:Normal Stomach:Appears normal Kidneys:Appears normal Bladder:Appears normal Gender:male Wants to know gender:yes Maternal Structures Uterus / Cervix Cervix:Visualized Approach:Transabdominal Cervical nyainb81.0 mm Impression Cephalic S=D Normal appearing limited anatomy Small anterior DENISE Normal fluid Low lying placenta (posterior) Recommendation Follow up as clinically indicated Bleeding precautions reviewed Coding ======= Description:20300-30 Follow Up Customer Success Associate: RT Roxanne Dawson , [facility] Physician: Elvira Wang MD, FACOG Electronically signed by: Elvira Wang MD, FACOG at: 6:51 us Karolyn Keen MD IMG US ORDERABLES Final Res ult from Last 3 Months Insurance [facility] PLAN [facility] Care Teams Cutter And Presser Relationship Specialty Start Date End Date Felipa Her APRN [address] [place] [address] PCP - General Nurse Practitioner 08/10/23
--- OUTSIDE RECORDS SUMMARY | 2025-05-14 12:57 | XMS_ITS | Clinical Summary ---
Author Organization [facility] Address [address] [place] [address] Care Team Providers Care Fur Blender Name Role Phone Wilmer Niya Ellis NP [...] 19+ 3-dose series) 2017 Pap Smear 11/12/2019 Depression Risk Screening 08/23/2024 SDOH Screening 08/23/2024 COVID-19 Vaccine ( - season) 2025 Influenza Vaccine (#1) 2025 5, 05/17/2014, 05/10/2013, [...] patient's age to complete this topic Insurance [place] MEDICAID [facility] Care Teams Fur Blender Relationship Specialty Start Date End Date Niya Guillen NP [address] [place] [address], [address] [place] [address] PCP - General Family Medicine 03/31/22
--- NOTE | 2025-05-14 13:00 | US_ITS ---
PROCEDURE: US OB FOLLOW UP CLINICAL INDICATION: Repeat growth scan COMPARISON: US US OB <= 14 WEEKS FETUS from 12/14/2024 US US OB <= 14 WEEKS FETUS from 12/28/2024 US from 12/31/2024 US US OB TRANSVAGINAL from 01/16/2025 US US OB FOLLOW UP from 01/16/2025 US US OB /MATERNAL DETAIL from 02/14/2025 US US OB FOLLOW UP from 03/08/2025 US US OB BIOPHYSICAL PROFILE from 04/18/2025 FINDINGS: Transabdominal sonographic images of the pelvis were obtained. The following parameters are obtained: From her established due date she is 33weeks 0 days Viable fetus in the cephalic presentation with a posterior placenta grade 2. The cervix measures 3.34 cm heart rate: 142bpm bpm. Average ultrasound age 32 weeks 2 days Estimated weight 1862 grams, 4 lb 2 oz BPD: 32weeks 3days, 24 percentile HC: 33weeks 0 days, 14 percentile AC: 31weeks 5days, 16 percentile FL: 31weeks 6days, 12 percentile HC/AC: 1.08 FL/BPD: 0.76 FL/AC: 0.22 Growth percentile: 14 Amniotic fluid index: 19.15cm, MVP 6.34 cm No obvious anomalies evident. lips and nose seen, stomach, bladder, kidneys, three-vessel cord, four chamber heart appear normal. IMPRESSION: 1. Viable fetus in the cephalic presentation with a posterior placenta grade 2. 2. The fluid is within normal limits with an amniotic fluid index 19.15 cm, MVP 6.34 cm. 3. There has been good interval growth with the fetus currently 14th percentile. (Previously 23rd percentile ) 4. The fetus is active. 5. Limited anatomical scan appears normal. Dictated by: Gerber Mcgrath MD 05/15/2025 07:04 Gerber Mcgrath MD in OV 05/15/2025 07:04
== END 2025-05-14 23:59 | disposition home or self-care (01) ==
LOC: RAD 12:55
PROVIDERS: PCP Nurse Practitioner Family; Visit Provider Obstetrics & Gynecology
DX: O16.3 Unspecified maternal hypertension, third trimester (principal); O09.293 Supervision of pregnancy with other poor reproductive or obstetric history, third trimester; O99.843 Bariatric surgery status complicating pregnancy, third trimester; O46.8X3 Other antepartum hemorrhage, third trimester; Z3A.33 33 weeks gestation of pregnancy
CPT/HCPCS: 76816

== ENCOUNTER 2025-05-18 13:38 | Outpatient (CLI) | payer OTHER, SELFPAY ==
--- OUTSIDE RECORDS SUMMARY | 2017-04-29 08:24 | XMS_ITS | Continuity of Care Document ---
Author Organization [facility] Address [address] [place] [address] Phone Care Team Providers Care Burn Center Nurse Name Role Phone Bijan Jang DO Unavailable Unavailable Advance Directives Directive Yes / No Effective Date File Name No Information Encounters Encounter Description Practice Location Reason(s) For Visit Diagnoses Date Provider Providers Copied on Encounter [facility], [address], [place], [place], [id number], [place] tel:[phone] [address] [place] [address] No Information 7 Suhail Livingston. [address], [place], [address], [place]. tel:[phone] Family History Family Member Type Diagnosis Age At Onset No Information Immunizations Vaccine Date Status Comments Tdap (Adacel) administered Note: Tdap gi usha by [facility] ; Source: Other Registry Payers Payer name [...]
--- OUTSIDE RECORDS SUMMARY | 2025-05-21 10:51 | XMS_ITS | Encounter Summary ---
Author Organization [facility] Address [facility] [place] [address] Phone Care Team Providers Care Park Interpretive Specialist Name Role Phone Karishma Torres MD Primary Care Provider [phone] Nola Dowling MD Primary Care Provider Eben Ball MD Primary Care Provide r Pcp, Nagi HERNANDEZ Primary Care Provider Encounter Details Date Type Department Care Team (Late st Contact Info) Description 11/04/2020 E-Visit [facility] [address] [place], [place] [address]e [address] [place] [address] [place] Torres [place] [id number] [place] [address] RE: RE: Other Topic (See message) Social History Tobacco Use Types Packs/Day Years Used Date Smoking Tobacco: Never Smokeless Tobacco: Never Alcohol Use Standard Drinks/Week Comments Yes 0 (1 standard drink = 0.6 oz pur e alcohol) smirnoff ice twice per year [place] Depression Scale Answer Date Recorded [place] Depression Scale Total 4 12/20/2019 The thought [...] on filedocumented in this encounter Care Teams Park Interpretive Specialist Relationship Specialty Start Date End Date Karishma Torres MD PCP - General Family Medicine 03/19/20 02/19/21 Nola Dowling MD PCP - General Family Medicine 02/20/21 02/21/24 Eben Ball MD PCP - General Family Medicine 02/22/24 02/25/25 Pcp, MD Nagi No Address [place], [place] PCP - General Internal Medicine 02/26/25 documented as of this encounter
--- OUTSIDE RECORDS SUMMARY | 2025-05-21 10:51 | XMS_ITS | Encounter Summary ---
Author Organization [employer] [facility] Address [facility] [place] [address] Phone Care Team Providers Care Industrial Spray Painter Name Role Phone Karishma Torres MD Primary Care Provider [phone] Nola Dowling MD Primary Care Provider Eben Ball MD Primary Care Provide r PcpNagi MD Primary Care Provider Encounter Details Date Type Department Care Team (Late st Contact Info) Description 04/19/2019 OB Documents [facility] [address] [place] [phone] [facility], MD allison [facility] [place] [address] Social History Tobacco Use Types Packs/Day Years [...] documented as of this encounter Care Teams Industrial Spray Painter Relationship Specialty Start Date End Date Karishma Torres MD PCP - General Family Medicine 03/19/20 02/19/21 Nola Dowling MD PCP - General Family Medicine 02/20/21 02/21/24 Eben Ball MD PCP - General Family Medicine 02/22/24 02/25/25 PcpNagi MD No Address [place], [place] PCP - General Internal Medicine 02/26/25 documented as of this encounter
--- OUTSIDE RECORDS SUMMARY | 2025-05-21 10:51 | XMS_ITS | Clinical Summary ---
Author Organization [facility] Address [address] [place] [address] Care Team Providers Care Airline Hostess Name Role Phone Wilmer Niya Ellis NP Primary Care Provider [phone] Allergies No known active allergies Medications No [...] patient's age to complete this topic Insurance [place] MEDICAID [facility] Care Teams Airline Hostess Relationship Specialty Start Date End Date Niya Guillen NP [address] [place] [address], [address] [place] [address] PCP - General Family Medicine 03/31/22
--- OUTSIDE RECORDS SUMMARY | 2025-05-21 10:51 | XMS_ITS | Encounter Summary ---
Author Organization [facility] Address [facility] [place] [address] [address] Phone Care Team Providers Care Stamp Press Operator Name Role Phone Karishma Torres MD Primary Care Provider [phone] Nola Dowling MD Primary Care Provider Eben Ball MD Primary Care Provide r Pcp, Nagi HERNANDEZ Primary Care Provider Encounter Details Date Type Department Care Team (Late st Contact Info) Description 07/27/[address] [address] Morgan Samaniego MD [address] [place] [address] [address] [place] [address] Social History Tobacco Use Types [...] documented as of this encounter Care Teams Stamp Press Operator Relationship Specialty Start Date End Date Karishma Torres MD PCP - General Family Medicine 03/19/20 02/19/21 Nola Dowling MD PCP - General Family Medicine 02/20/21 02/21/24 Eben Ball MD PCP - General Family Medicine 02/22/24 02/25/25 PcpNagi MD No Address [place], [place] PCP - General Internal Medicine 02/26/25 documented as of this encounter
--- OUTSIDE RECORDS SUMMARY | 2025-05-21 10:51 | XMS_ITS | Continuity of Care Document ---
Author Organization [facility] & [facility] Bariatrics and Adv Surg Address [address] [facility] [address] [place] [address] Care Team Providers Care Figure Skater Name Role Phone KAROLS CHESTER Primary Care Provider Assessment No assessment recorded. Plan of Treatment Reminders Order Date Submit Date Provider Last Modified By Organization Details Last Modified Time Details Appointments OV EST 20 025 11:20AM RON Azar Not available Not available Not [...] Name and Address Organization Details Recorded Time Paresthesi a of upper limb 21341366 Active 2023 Raquel Guillen DO [address] , [place], [address] , [facility] [place] 4 15:38:11 Essential hypertensi on 22323661 Active 2023 RON Azar [address] , [place], [address] , [facility] & [place] 4 12:30:28 Obesity 684704097 Active 2023 RON Azar [address], [place], [address] , [facility] & [place] 4 12:30:50 Disorder of function of stomach 513625212 Active 2023 RON Azar [address], [place], [address] , [place] [facility] [place] [facility] [place] 4 12:30:50 Impaired glucose tolerance 2519315 Active 2023 RON Azar [address], [place], [address] , [place] [facility] [facility] [place] 4 12:31:02 Postoperat nicholas pain 861428897 Active 2024 RON Azar [address], [place], [address] , [place] [facility] [facility] [place] 5 08:04:37 Contact dermatitis 24391880 Active 2024 RON Azar [address], [place], [address] , [place] [facility] 5 10:32:01 Nausea 852116960 Active 2024 RON Azar [address] , [place], [address] , [place] 5 09:06:20 Nausea and vomiting 74540032 Active 2024 RON Azar [address], [place], [address] , [place] [facility] [facility] [place] [facility] [place] 5 10:19:41 Bilious vomiting 10996998 Active 2024 RON Azar [address], [place], [address] , [place] 5 09:06:37 Mild dehydratio n 6819502595289 Active 2024 RON Azar [address], [place], [address] , [place] 5 09:09:44 Intentiona l weight loss 921351776 Active 2024 RON Azar [address], [place], [address] , [place] 5 09:06:38 Body mass index 40+ - severely obese 358785184 Active 2024 RON Azar [address], [place], [address] , [place] 5 09:07:05 Severe obesity 9059521576158 4 Active 2024 RON Azar [address], [place], [address] , [place] 5 09:07:24 Nutritiona l deficiency state 09536679 Active 2024 RON Azar [address], [place], [address] , [place] 5 10:04:26 Epigastric pain 38069372 Active 2024 RON Azar [address], [place], [address] , [place] [facility] & [place] 5 10:16:35 Gestation period, 13 weeks 58348047 Active 2024 RON Azar [address], [place], [address] , [place] 5 10:26:24 Gestation period, 19 weeks 09824766 Active 2024 RON Azar [address], [place], [address] , [place] [facility] & [place] 5 13:38:05 Protein level - finding 950375439 Active 2024 RON Azar [address], [place], [address] , [place] [facility] & [place] 5 13:39:22 Vitamin D deficiency 52686458 Active 2024 RON Azar [address], [place], [address] , [facility] & [place] 13:40:16 Heartburn 85901784 Active 2024 RON Azar [address] , [place], [address] , [facility] & [place] 11:23:29 Problem Notes None recorded. Procedures Surgical History Date Name Laterality Status Provider Name and Address Organization Details Recorded Time 10/16/19 25 procedure on duodenum completed Parris Torres [facility] & [place] 11/09/2024 08:47:34 12/09/19 24 EMG/ Nerve Conduction Study completed Raquel Guillen DO [address], [place], [address], [facility] & [place] 12/09/2023 15:38:04 Cholecystectomy completed RON Azar [address], [place], [address], [facility] & [place] 07/04/2024 12:57:53 extraction of wisdom tooth completed Parris Torres [facility] & [place] 07/03/2024 15:07:44 Tonsillectomy completed Parris Torres [facility] & [place] 07/03/2024 15:07:52 procedure on ganglion cyst completed Stephanie Castro [facility] & [place] 10/04/2024 07:53:08 Imaging Results [...] completed Not Available Not Available Not Available famotidine 20 mg tablet TAKE 1 TABLET BY MOUTH TWICE DAILY 05/11 completed Not Available Not Available Not Available Compazine 5 mg tablet Take 1 tablet 3 times a day by oral route. 05/11 completed Not Available Not Available Not Available cyanocobala min (vit B-12) 1,000 mcg/mL injection [...] Available omeprazole 20 mg capsule,del ayed release Take 1 capsule every day by oral route for 30 days. 05/11 completed Not Available Not Available Not Available celecoxib 100 mg capsule TAKE 1 [...] 6 HOURS NEEDED FOR NAUSEA AND VOMITING 05/11 completed Not Available Not Available Not Available [...] completed Not Available Not Available Not Available aspirin active Not Available Not Avail able Not Available Vitamin D 50mcg qd 07/04 completed Not Available Not Available Not Available Vitamin D3 12/27 completed Not Available Not Available Not Available active Not Available Not Avai lable Not Available multivitami n 05/11 completed Not Available Not Available Not Available hydrochloro thiazide 12.5 mg tablet 12/27 completed Not Available Not Available Not Available cholecalcif pretty (vitamin D3) 1,250 mcg (50,000 unit) capsule 10/04 completed Not Available Not Available Not Available cholecalcif pretty (vitamin D3) 50 mcg (2,000 unit) capsule TAKE 1 CAPSULE BY MOUTH ONCE DAILY 07/04 completed Not Available Not Available Not Available [facility] 75 mg disintegrat ing tablet 12/27 completed Not Available Not Available Not Available Vitals Date Recorded Body height Body mass index (BMI) Body weight Body temperature Oxygen saturation Oxygen saturation in Arterial blood by Pulse oximetry Heart rate Systolic And Diastolic Provider Name and Address Organization Details Last Updated DateTime 5 170.18 cm 35.9 kg/m2 165121. 45 g 97.4 [degF] 99 % 99 % 80 /min 112/78 mm[Hg] Flora Becerril [facility] & [place] 5 11:14:40 Social History Question Answer Notes LastModified by Organizat ion Details LastModified Time Tobacco Smoking Status Never Smoker Parris neely, [facility] & [place] 07/03/2024 15:12:10 What Is Your Level Of Caffeine Consumption? Occasional [email or web address] Information not available 07/04/2024 Sex: Female Functional Status Question Answer Note LastModified by Organizat ion Details LastModified Time Do you use any illicit or recreational drugs? No [email or web address] Information not available 07/03/2024 What is your level of alcohol consumption? Occasional [email or web address] Information not available 07/03/2024 Mental Status None recorded. Family History Relationship Description Onset Age of this Age Resolved Age Notes LastModified by Organization Details LastModified Time Father Hypertensive disorder [email or web address] Not available 06/2024 15:12:25 Father Hypercholest erolemia [email or web address] Not available 06/2024 15:12:51 Mother Hypertensive disorder [id number] Not available 06/2024 15:12:25 Mother Hypercholest erolemia [email or web address] Not available 06/2024 15:12:51 Mother Asthma [email or web address] Not availabl e 07/04/2024 13:49:15 Mother Chronic obstructive pulmonary disease [email or web address] Not available 06/2024 15:13:21 Maternal Grandmother Hypertensive disorder Not available 06/2024 15:12:25 Maternal Grandmother Chronic obstructive pulmonary disease [id number] Not available 06/2024 15:13:21 Maternal Grandfather Malignant neoplasm of lung [email or web address] Not available 06/23 13:49:15 Brother Asthma [email or web address] Not availab le 07/04/2024 13:49:15 Sister Asthma [...] Diagnosis SNOMED-CT Code Diagnosis ICD10 Code Diagnosis IMO Codes Diagnosis Note [id number] RON Azar [facility] [address] [facility] [address] [place] [address] 05/11/2025 11:05:40 05/11/2025 11:31:29 Heartburn 02912511 R12 63566 heartburn is to be expected with . Patient is to continue Tums as needed. She is to call for any worsening heartburn Normal 1768806 2 Z34.93 [id number] patient is now 32 weeks gravid. she is to continue to follow up with her obstetrici an.Discuss ed healthy nutrition to support . Encouraged patient to continue focus on protein fruits and vegetables . Small frequent meals Advised.Ron benjamin is to meet with our dietitian today. History of gastrectomy 510321238 Z90.3 086937 Patient is status post bariatric surgery and at increased risk for vitamin deficienci es and malnutriti on. Patient is to continue vitamin supplement ation. We will recheck vitamin levels at next office visit [id number] [facility] Bariatric s and Adv Surg [address] [facility] [address] [place] [address] 05/11/2025 11:30:41 05/11/2025 12:10:39 Diet education 01399547 Z71.3 915315 Health Concerns Section Related Observation LastModified by Organization Detai ls LastModified Time None Recorded Concern Status LastModified by Organization Details LastModified Time None Recorded Payers Encounter Date Sequence Insurance Name Policy Number Policy Sanchez Covered Member ID Sanchez Member ID Guarantor Name 05/11/2025 1 [facility] ([facility]PLAC[facility] - [place]MO) MARY Christina [id number] Penelope Christina Notes Date Note Type Note Provider Name and Address Organization Details Recorded Time 05/11/2025 text/html ROS as noted in the HPI s/p Tori-s 10/16/24EGD on 12/14/2024 and was found to be . OB is Dr Faye Hartmann. Patient presents the office today for routine follow-up status post bariatric surgery.Pt is now 32 wks gravid. . She is having baby boy. she states everything is going well. 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 She has a growth scan for baby on Wednesday.patient tells me she has had further imaging for subchorionic hematoma and this has resolved.She does report significant hunger and states she is eating every hour. She has lost 14 lb since last office visit.Taking routine vitamins as advised. January labs show minimal vitamin D deficiency. Patient does continue to take vitamins. She states she had recent labs with her produce production team member approximately 2 weeks ago and they were happy with results.Heartburn/bernard roesophageal reflux: Patient does state reflux is significant. She stopped omeprazole because she felt like it was not helping. She is using Tums as needed.Pt Denies : abdominal pain, prandial issues Nausea, Vomiting, bowel or bladder issues @ 02/05/25 Followup12/28/24 Ultrasound shows normally grown fetus with no abnormality seen. Single intrauterine with cardiac activity. Size consistent with dates. Amniotic fluid volume is normal. A large subchorionic hematoma is seen to extend from the leading edge of the placenta.Pt is off work due to high risk preg w/ large subchorionic hematomaOverall patient states she is doing well. She states her produce production team member has her this the subchorionic hematoma is resolving. OBS happy with current progress Patient states she has less nausea and is [...] not want to take medication during . RON Azar [address], [place], [address], [place] [facility] [facility] [place] 05/11/2025 12:11:51 05/11/2025 text/html RDN met w/ pt for f/up s/p TORI-S. Pt is now 32 weeks . 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 daily kcal intake: 3865-2952 Est. daily protein intake: 70-90 Est. daily fluid intake: 50+ oz Meal Frequency/Pattern: eating almost every hour and doing protein focusedprotein shakes in the morning, protein spaghetti, eggs, adding in more beans, tuna, oikos drinks Drinks: body armor water Foods Not Tolerated: none noted Additional notes/concerns: Able to get food stamps and getting WIC, [place], housing assistance [address], RD [address], [place], [address], [facility] & [place] 05/11/2025 11:50:26 OBGyn Episode No OBEpisode recorded.
--- OUTSIDE RECORDS SUMMARY | 2025-05-21 10:51 | XMS_ITS | Clinical Summary ---
Author Organization [facility] Address [address] [place] [address] Phone Care Team Providers Care Audio/Video Engineer Name Role Phone Pcp, None MD Primary Care Provider [phone] Allergies No known active allergies Medications Blood Pressure Monitoring (BLOOD PRESSURE MONITOR/L CUFF) [facility] Check blood pressure three times daily. Call [...] e alcohol) smirnoff ice twice per year Dewitt Depression Scale Answer Date Recorded Dewitt Depression Scale Total 4 12/20/2019 The thought [...] 10/09/2021 2:39 PM EST Vaginal itching CYTOLOGY AUDIO OPERATOR Routine 01/25/2020 11:33 AM EDT Pap smear for cervical cancer screening from Last 3 Months or Most Recently Relevant to Health Maintenance Results * CHLAMYDIA & GC RNA AMP (10/09/2021 2:39 PM EST) SPECIMEN SOURCE Urine, Random CENTRAL RECEIVING SPECIMEN TYPE Urine CENTRA L RECEIVING C. TRACHOMATIS BY AMP RNA Not Detected Not Detected [facility] 2 N. GONORRHOEAE BY AMP RNA Not Detected Not Detected [facility] 2 Comment: (NOTE) Testing methodology is interlibrary loan specialist mediated amplification (TMA) using the Aptima Combo 2 assay from [employer]. A negative result does not completely rule [...] methodology is available upon request. Tested at: [facility], [address] [place] [address] Urine specimen (specimen) URINE SPECIMEN / Unknown 10/09/2021 2:39 PM EST 10/09/2021 8:49 PM EST us Josué Silva Jr., MD BODY FLUIDS AND STOOLS ORDERABLES Final Result [facility] [address] [place] [id number] [place] [address] 2 * (ABNORMAL) CYTOLOGY AUDIO OPERATOR (01/25/2020 11:33 AM EDT) CYTOLOGY-AUDIO OPERATOR CYTOLOGY GYNECOLOGICAL REPORT Name: PENELOPE MERRITT#: [id number] Case #: [id number] Final Cytologic Diagnosis A. Cervical/Endocervic al thinprep pap: Adequacy: Satisfactory for evaluation, endocervical transformation zone component present. Interpretation: Epithelial cell abnormality: Low-grade squamous intraepithelial lesion. This specimen has been analyzed by the ThinPrep Imaging System ([employer] an automated imaging and review system, which assists the phone counselor and/or pathologist in evaluation of cells on Thinprep Pap tests. Flavia Up Electronically Signed Out By Diana Guillen MD Source of Specimen(s) A: Cervical/Endocervic al thinprep pap Clinical History Date of Last Menstrual Period: 01/03/2020 Signed out at [facility], [address] [place] [address] [facility] Non-Formatted Report (A) [facility] 01/25/2020 11:3 3 AM EDT 01/26/2020 3:41 PM EDT Gordo Trejo MD PATHOLOGY/CYTOLOGY ORDERAB LES Final Result [facility] [address] [place], [place] [id number] from Last 3 Months or Most Recently Relevant to Health Maintenance Advance Directives * Full Code (Latest Code Status on File) Date Activated Date Inactivated Comments 11/23/2019 12:21 AM 11/24/2019 2:14 PM * Full Code Date Activated Date Inactivated Comments 11/22/2019 10:21 AM 11/23/2019 12:20 AM Care Teams Audio/Video Engineer Relationship Specialty Start Date End Date Pcp, MD Nagi No Address [place], [place] PCP - General Internal Medicine 02/26/25
--- OUTSIDE RECORDS SUMMARY | 2025-05-21 10:52 | XMS_ITS | Clinical Summary ---
Author Organization [facility] Address [address] [place] [address] Care Team Providers Care Motorcycle Maker Name Role Phone Felipa Her APRN Primary Care Provider [phone] Allergies No known active allergies Medications hydroCHLOROthiazid e (HYDRODIURIL) 12.5 MG tablet 1 tablet. 03/30/20 23 Active Cholecalciferol (Vitamin D3) 1.25 MG (40326 UT) capsule TAKE ONE CAPSULE BY MOUTH [...] Description 03/09/2025 9:15 AM EDT Office Visit [facility] MEDICAL [facility] MATERNAL MEDICINE [address] [place] [address] Elvira Wang MD Subchorionic hematoma, antepartum, single or unspecified fetus (Primary Dx) 03/09/2025 8:55 AM EDT - 03/09/2025 11:59 PM EDT Hospital Encounter [facility] US PER DI[facility] [address] [place] [address] Karolyn Keen MD Previous delivery affecting ; Status post bariatric surgery; Subchorionic hematoma, antepartum, single or unspecified fetus Discharge Disposition: Home or Self Care 03/09/2025 Travel from Last 3 Months Immunizations Immunization [...] Procedure Name Priority Date/Time Associated Diagnosis Comments [facility] Routine 03/09/2025 9:29 AM EDT Previous delivery affecting Status post bariatric surgery Subchorionic hematoma, antepartum, single or unspecified fetus from Last 3 Months Results * [facility] (03/09/2025 9:29 AM EDT) Anatomical Region Laterality Modality Ultrasound 03/09/2025 9:07 AM EDT Narrative 03/13/2025 4:51 PM EDT PAT NAME: PENELOPE MERRITT MED REC#: [id number] DA: [id number] PAT GEND: F PAT TYPE: O EXAM PATRICK: [id number] REF PHYS LISSETTE OLIVEROS Comparison Studies The [...] EFW (oz) 4 oz EFW by: Hadlock ([id number]-[id number]-FL) Extended Cav. septi pel. tr 4.6 mm Serging Machine Operator Automatic 6.8 mm CM 8.7 mm 98% Nicolaides [...] IVC: Appears Normal 3-vessel view: Appears normal 0-bytqai-geqjuti view: Appears normal Cord insertion: Normal Stomach: Appears normal Kidneys: Appears normal Bladder: Appears normal Gender: male Wants to know gender: yes Maternal Structures Uterus / Cervix Cervix: Visualized Approach: Transabdominal Cervical length 53.0 mm Impression Cephalic S=D Normal appearing limited anatomy Small anterior DENISE Normal fluid Low lying placenta (posterior) Recommendation Follow up as clinically indicated Bleeding precautions reviewed Coding ======= Description: 11821-28 Follow Up Metal Machine Setter: RT Roxanne Dawson , [place] Physician: Elvira Wang MD, FACOG Electronically signed by: Elvira Wang MD, GAELOG at: 16:51 Procedure Note Elvira Wang MD - 03/13/2025 PAT NAME: PENELOPE MERRITT MED REC#: [id number] DA: 2000 PAT GEND: F PAT TYPE: O EXAM PATRICK: [id number] REF PHYS LISSETTE OLIVEROS Comparison Studies The findings of this study are compared to the prior ultrasound studydated Patient Status Outpatient Indication ======== subchorionic hemorrhage. Obesity BMI 39. H/O gestational hypertension. H/Obariatric surgery Maternal Assessment Azyjkj555 cm Height (ft)5 ft Height (in)6 in Sxogym696 kg Weight (lb)240 lb BMI38.57 kg/m Method ======= Transabdominal ultrasound examination. View: Good view ========= Herrera . Number of fetuses: 1 Dating ====== Method of dating:based on stated CAYLA GA by prior [id number] w + 4 d CAYLA by prior [...] Hadlock Femur41.2 mm 23w 3d 31% Hadlock Dvlfpqi04.8 mm 23w 5d 45% Meagan HC / AC1.12 TWC745 g 23w 0d 27% Hadlock EFW (lb)1 lb EFW (oz)4 oz EFW by:Hadlock ([place]-LP-PE-FL) Extended Cav. septi pel. tr4.6 mm Vp6.8 mm CM8.7 mm 98% Nicolaides Head / Face / Neck Cephalic index0.73 7% Nicolaides Extremities / Bony Struc FL / BPD0.76 FL / HC0.20 FL / AC0.22 Other Structures RXL551 bpm General Evaluation Cardiac activity present. FHR [...] SVC:Appears Normal IVC:Appears Normal 3-vessel view:Appears normal 4-znyvek-zzwnunn view:Appears normal Cord insertion:Normal Stomach:Appears normal Kidneys:Appears normal Bladder:Appears normal Gender:male Wants to know gender:yes Maternal Structures Uterus / Cervix Cervix:Visualized Approach:Transabdominal Cervical yxexpn00.0 mm Impression Cephalic S=D Normal appearing limited anatomy Small anterior DENISE Normal fluid Low lying placenta (posterior) Recommendation Follow up as clinically indicated Bleeding precautions reviewed Coding ======= Description:65463-00 Follow Up Metal Machine Setter: Genoveva North RT R , [facility] Physician: Elvira Wang MD, FACOG Electronically signed by: Elvira Wang MD, FACOG at: :51 us Karolyn Keen MD IMG US ORDERABLES Final Res ult from Last 3 Months Insurance [facility] Care Teams Motorcycle Maker Relationship Specialty Start Date End Date Felipa Her APRN [address] [place] [address] [place] [address] PCP - General Nurse Practitioner 08/10/23
--- OUTSIDE RECORDS SUMMARY | 2025-05-21 10:52 | XMS_ITS | Encounter Summary ---
Author Organization [facility] Address [facility] [place] [address] Phone Care Team Providers Care Film Coater Name Role Phone Karishma Torres MD Primary Care Provider [phone] Nola Dowling MD Primary Care Provider Eben Ball MD Primary Care Provide r PcpNagi MD Primary Care Provider [phone] Encounter Details Date Type Department Care Team (Late st Contact Info) Description 11/22/2019 OB Documents [facility] [address] [place] [phone] [facility] [place] [address] Social History Tobacco Use Types Packs/Day Years [...] documented as of this encounter Care Teams Film Coater Relationship Specialty Start Date End Date Karishma Torres MD PCP - General Family Medicine 03/19/20 02/19/21 Nola Dowling MD PCP - General Family Medicine 02/20/21 02/21/24 Eben Ball MD PCP - General Family Medicine 02/22/24 02/25/25 Nagi Rodriguez MD No Address [place], [place] PCP - General Internal Medicine 02/26/25 documented as of this encounter
--- OUTSIDE RECORDS SUMMARY | 2025-05-21 10:52 | XMS_ITS | Patient Health Record ---
Author Organization [facility] Address [address] [place] [id number] Care Team Providers Care Debt Recovery Officer Name Role Phone Thor May Primary Care Provider Unavail able Roxanne Dillon Unavailable [phone] Reason For Referral No Information Medications Medication SIG (Take, Route, Frequency, Duration) Notes Start Date End Date Status A TUSS DM 1/ 1 TSP PO QID; Duration: PRN *Please review for potential replacement for e-prescription and drug interaction check* Active Plan Of Treatment No Information Medical (General) History Surgical History Surgery Date(Month/Year) adnoidectomy tonsillectomy
--- OUTSIDE RECORDS SUMMARY | 2025-05-21 10:52 | XMS_ITS | Continuity of Care Document ---
Author Organization [place] - [facility] & [facility] Bariatrics and Adv Surg Address [address] [place] [address] Care Team Providers Care Medical Insurance Coding Specialist Name Role Phone KARLOS CHESTER Primary Care Provider [phone] Assessment Encounter Date Assessment Date Assessment LastModified by Organization Details LastModified Time 05/11/2025 05/11/2025 A total of 5 minutes was spent with the pt today. Total weight gain for BMI >30 11-18 lbs Recommendations: 1. Continue with current eating regimen, vitamin regimen 2. Continue to increase fluids 3. F/U with RD after the baby is here Pt doing well overall. Addressed concerns today. Pt was reassured at today's visit. Pt verbally agreed to recommendations and goals. Denied further questions/concerns . RDN will monitor weight loss, labs, meds, and lifestyle modifications. Will f/up as scheduled or PRN. [email or web address] Not available 05/11/2025 11:50:11 Plan of Treatment Reminders Order Date Submit [...] Recorded Time Paresthesi a of upper limb 65813985 Active 2023 Raquel Guillen, DO [address], [place], [address] , [place] - [facility] - [place] & [place] 4 15:38:11 Essential hypertensi on 42773633 Active [address], [place], [address] , [place] - [facility] [place] [facility] [place] 4 12:30:28 Obesity 868387258 Active [address], [place], [address] , [place] - [facility] [place] [facility] [place] 4 12:30:50 Disorder of function of stomach 881283806 Active [address], [place], [address] , [place] - [facility] [place] [facility] [place] 4 12:30:50 Impaired glucose tolerance 0585932 Active [address], [place], [address] , [place] [facility] [place] 4 12:31:02 Postoperat nicholas pain 560553984 Active [address], [place], [address] , [place] [facility] [place] [facility] [place] 5 08:04:37 Contact dermatitis 75459044 Active [address], [place], [address] , [place] [facility] [place] 5 10:32:01 Nausea 026996875 Active [address], [place], [address] , [place] [facility] [place] [facility] [place] 5 09:06:20 Nausea and vomiting 36563261 Active [address], [place], [address] , [place] [facility] [place] 5 10:19:41 Bilious vomiting 25283356 Active [address], [place], [address] , [place] [facility] [place] 5 09:06:37 Mild dehydratio n 3431178911944 Active [address], [place], [address] , [place] [facility] [place] [facility] [place] 5 09:09:44 Intentiona l weight loss 051676125 Active [address], [place], [address] , [place] - [facility] & [place] 5 09:06:38 Body mass index 40+ - severely obese 294059296 Active [address], [place], [address] , [place] [facility] & [place] 5 09:07:05 Severe obesity 8701867438234 4 Active [address], [place], [address] , [place] [facility] & [place] 5 09:07:24 Nutritiona l deficiency state 70143941 Active [address], [place], [address] , [place] [facility] & [place] 5 10:04:26 Epigastric pain 88390506 Active [address], [place], [address] , [place] [facility] [place] 5 10:16:35 Gestation period, 13 weeks 50997310 Active [address], [place], [address] , [place] [facility] [place] 10:26:24 Gestation period, 19 weeks 92848915 Active [address], [place], [address] , [place] [facility] [place] 13:38:05 Protein level - finding 326607480 Active [address], [place], [address] , [place] [facility] & [place] 13:39:22 Vitamin D deficiency 48548785 Active [address], [place], [address] , [place] [facility] & [place] 13:40:16 Heartburn 16704850 Active [address], [place], [address] , [place] [facility] & [place] 11:23:29 Problem Notes None recorded. Procedures Surgical History Date Name Laterality Status Provider Name and Address Organization Details Recorded Time 10/16/19 25 procedure on duodenum completed Parris Torres PA - [facility] & [place] 11/09/2024 08:47:34 12/09/19 24 EMG/ Nerve Conduction Study completed DO [address], [place], [address], [place] - [facility] & [place] 12/09/2023 15:38:04 [address] completed [address], [place], [address], [place] - [facility] & [place] 07/04/2024 12:57:53 extraction of wisdom tooth completed Parris GUTHRIE - [facility] & [place] 07/03/2024 15:07:44 Tonsillectomy completed Parris GUTHRIE - [facility] & [place] 07/03/2024 15:07:52 procedure on ganglion cyst completed Stephanie Castro [place] - [facility] - [place] [facility] [place] 10/04/2024 07:53:08 Imaging Results None recorded. Procedure [...] Organization Details Last Updated DateTime 170.18 cm 35.9 kg/m2 690428. 45 g 97.4 [degF] 99 % 99 % 80 /min 112/78 mm[Hg] Flora Becerril [facility] & [place] 11:14:40 Social History Question Answer Notes LastModified by [employer] Details LastModified Time Tobacco Smoking Status Never Smoker Parris Torres null, [facility] & [place] 07/03/2024 15:12:10 What Is Your Level Of Caffeine Consumption? Occasional Information not available 07/04/2024 Sex: Female Functional Status Question Answer Note LastModified by [employer] Details LastModified Time Do you use any illicit or recreational drugs? No [email or web address] Information not available 07/03/2024 What is your level of alcohol consumption? Occasional [email or web address] Information not available 07/03/2024 Mental Status None recorded. Family History Relationship Description Onset Age of this Age Resolved Age Notes LastModified by Organization Details LastModified Time Father Hypertensive disorder [email or web address] Not available 06/2024 15:12:25 Father Hypercholest erolemia [email or web address] Not available 06/2024 15:12:51 Mother Hypertensive disorder [email or web address] Not available 06/2024 15:12:25 Mother Hypercholest erolemia [email or web address] Not available 06/2024 15:12:51 Mother Asthma [email or web address] Not availabl e 07/04/2024 13:49:15 Mother Chronic obstructive pulmonary disease Not available 06/2024 15:13:21 Maternal Grandmother Hypertensive disorder [id number] Not available 06/2024 15:12:25 Maternal Grandmother Chronic obstructive pulmonary disease [email or web address] Not available 06/2024 15:13:21 Maternal Grandfather Malignant neoplasm of lung [email or web address] Not available 06/23 13:49:15 Brother Asthma [email or web address] Not availab le 07/04/2024 13:49:15 Sister Asthma [email or web address] Not availabl e 07/04/2024 13:49:15 Medical History [...] ICD10 Code Diagnosis IMO Codes Diagnosis Note [id number] [address] [facility] Bariatric s and Adv Surg [address] [place] [address] 05/11/2025 11:05:40 05/11/2025 11:31:29 Heartburn 78075285 R12 18947 heartburn is to be expected with . Patient is to continue Tums as needed. She is to call for any worsening heartburn Normal 5989682 2 Z34.93 [id number] patient is now 32 weeks gravid. she is to continue to follow up with her obstetrici an.Discuss ed healthy nutrition to support . Encouraged patient to continue focus on protein fruits and vegetables . Small frequent meals Advised.Ron benjamin is to meet with our dietitian today. History of gastrectomy 463294507 Z90.3 [id number] Patient is status post bariatric surgery and at increased risk for vitamin deficienci es and malnutriti on. Patient is to continue vitamin supplement ation. We will recheck vitamin levels at next office visit [id number] [facility] Bariatric s and Adv Surg [address] [place] [address] 05/11/2025 11:30:41 05/11/2025 12:10:39 Diet education 38010565 Z71.3 [id number] Health Concerns Section Related Observation LastModified by Organization Detai ls LastModified Time None Recorded Concern Status LastModified by Organization Details LastModified Time None Recorded Payers Encounter Date Sequence Insurance Name Policy Number Policy Sanchez Covered Member ID Sanchez Member ID Guarantor Name 05/11/2025 1 [facility] (MEDICAID REPLACEMENT - HMO) MARY Christina [id number] Penelope Christina Notes Date Note Type Note [...] she states everything is going well. 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 She [...] states she had recent labs with her soldering machine operator approximately 2 weeks ago and they were [...] she is doing well. She states her soldering machine operator has her this the subchorionic hematoma is [...] to take medication during . [address], [place], [address], [facility] & [place] 05/11/2025 12:11:51 05/11/2025 text/html RDN met w/ pt for f/up s/p TORI-S. Pt is now 32 weeks . 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 daily kcal intake: 0842-1212 Est. daily protein intake: 70-90 Est. daily fluid intake: 50+ oz Meal Frequency/Pattern: eating almost every hour and doing protein focusedprotein shakes in the morning, protein spaghetti, eggs, adding in more beans, tuna, oikos drinks Drinks: body armor water Foods Not Tolerated: none noted Additional notes/concerns: Able to get food stamps and getting WIC, [employer], housing assistance [address], [place], [address], [facility] - [facility] & [place] 05/11/2025 11:50:26 OBGyn Episode No OBEpisode recorded.
--- OUTSIDE RECORDS SUMMARY | 2025-05-21 10:52 | XMS_ITS | Data Portability ---
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 Use [facility] dot to track 8. Take vitamins as [...] scheduled or PRN. Not available 12/27/2024 11:07:23 05/11/2025 05/11/2025 A total of 5 minutes [...] modifications. Will f/up as scheduled or PRN. [email or web address] Not available 05/11/2025 11:50:11 Plan of Treatment Reminders Order Date Submit Date Provider Last Modified By Organization Details Last Modified Time Details Appointments OV EST 20 2024 11:20A RON Sinclair Not available Not available Not available Lab vitamin D, 25-hydro xy, total, serum 2024 025 [facility], [address], [address], [place], [address], 02/16/2025 18:37:46 copper, serum or plasma 2024 025 [facility], [address], [address], [place], [address], 02/16/2025 18:37:49 selenium , quantita tive, blood 2024 025 [facility], [address], [address], [place], [address], 02/16/2025 18:37:52 prealbum in, serum 2024 025 [facility], [address], [address], [place], [address], 02/16/2025 18:37:51 zinc, serum or plasma 2024 025 [facility], [address], [address], [place], [address], 02/16/2025 18:37:50 folate, serum 2024 025 [facility], [address], [address], [place], [address], 02/16/2025 18:37:44 thiamine , QN, blood 2024 025 [facility], [address], [address], [place], [address], 02/16/2025 18:37:47 methylma lonate, QN, serum or plasma 2024 025 [facility], [address], [address], [place], [address], 02/16/2025 18:37:48 iron + TIBC + ferritin , serum 2024 025 [facility], [address], [address], [place], [address], 02/16/2025 18:37:38 CBC w/ auto diff 2024 025 [facility], [address], [address], [place], [address], 02/16/2025 18:37:40 CMP, serum or plasma 2024 025 [facility], [address], [address], [place], [address], 02/16/2025 18:37:42 vitamin E, serum 2024 025 [facility], [address], [address], [place], [address], 02/16/2025 18:37:43 vitamin A (retinol ), serum 2024 025 [facility], [address], [address], [place], [address], 02/16/2025 18:37:45 TSH + free T4, serum 2024 025 [facility], [address], [address], [place], [address], 02/16/2025 18:37:39 Referral None recorded . Procedures None recorded . Surgeries None recorded . Imaging None recorded . Medication Orders None recorded . Patient TargetsNo targets recorded. Patient InstructionsNo instructions recorded. Reason for Referral None Reported. Results Created Date Observation Date Name Description Value Unit Range Abnormal Flag Note LastModifiedBy Organization Detail LastModifiedTime 12/02/1912/02/2024 CBC WITH DIFFE RENTI AL/PL ATELE T WBC 8.4 x10e3 /uL 3.4-10 .8 normal Not Available [facility] ([facility]) [address] [place], [address], 12/02/2024 03:38:32 12/02/1912/02/2024 CBC WITH DIFFE RENTI AL/PL ATELE T RBC 4.94 x10e6 /uL 3.77-5 .28 normal Not Available [facility] ([facility]) [address] [place], [address], 12/02/2024 03:38:32 12/02/19 25 12/02/2024 CBC WITH DIFFE RENTI AL/PL ATELE T hemoglobin 14.3 g/dL 11.1-1 5.9 normal Not Available [facility] ([facility]) [address] [place], [address], 12/02/2024 03:38:32 12/02/1912/02/2024 CBC WITH DIFFE RENTI AL/PL ATELE T hematocrit 41.7 % 34.0-4 6.6 normal Not Available [facility] ([facility]) [address] [place], [address], 12/02/2024 03:38:32 12/02/19 25 12/02/2024 CBC WITH DIFFE RENTI AL/PL ATELE T MCV 84 fL 79-97 normal Not Available [facility] ([facility]) [address] [place], [address], 12/02/2024 03:38:32 04/11/20 25 12/02/2024 CBC WITH DIFFE RENTI AL/PL ATELE T MCH 28.9 pg 26.6-3 3.0 normal Not Available [facility] ([facility]) [address] [facility], [place], [address], 12/02/2024 03:38:32 12/02/19 25 12/02/2024 CBC WITH DIFFE RENTI AL/PL ATELE T MCHC 34.3 g/dL 31.5-3 5.7 normal Not Available [facility] ([facility]) [address] [facility], [place], [address], 12/02/2024 03:38:32 12/02/19 25 12/02/2024 CBC WITH DIFFE RENTI AL/PL ATELE T RDW 14.5 % 11.7-1 5.4 Not Available [facility] ([facility]) [address] [facility], [place], [address], 12/02/2024 03:38:32 12/02/19 25 12/02/2024 CBC WITH DIFFE RENTI AL/PL ATELE T platelets 171 x10e3 /uL 150-45 0 normal Not Available [facility] ([facility]) [address] [facility], [place], [address], 12/02/2024 03:38:32 12/02/19 25 12/02/2024 CBC WITH DIFFE RENTI AL/PL ATELE T neutrophils 72 % not estab. normal Not Available [facility] ([facility]) [address] [facility], [place], [address], 12/02/2024 03:38:32 12/02/19 25 12/02/2024 CBC WITH DIFFE RENTI AL/PL ATELE T lymphs 21 % not estab. normal Not Available [facility] ([facility]) [address] [place], [address], 12/02/2024 03:38:32 12/02/19 25 12/02/2024 CBC WITH DIFFE RENTI AL/PL ATELE T monocytes 6 % not estab. normal Not Available [facility] ([facility]) [address] [facility], [place], [address], 12/02/2024 03:38:32 12/02/19 25 12/02/2024 CBC WITH DIFFE RENTI AL/PL ATELE T eos 1 % not estab. normal Not Available [facility] ([facility]) [address] [facility], [place], [address], 12/02/2024 03:38:32 12/02/19 25 12/02/2024 CBC WITH DIFFE RENTI AL/PL ATELE T basos 0 % not estab. normal Not Available [facility] ([facility]) [address] [facility], [place], [address], 12/02/2024 03:38:32 12/02/19 25 12/02/2024 CBC WITH DIFFE RENTI AL/PL ATELE T immature cells PRODUCT SCIENTIST Not Available [facility] ([facility]) [address] [place], [address], 12/02/2024 03:38:32 12/02/19 25 12/02/2024 CBC WITH DIFFE RENTI AL/PL ATELE T neutrophils (absolute) 6.0 x10e3 /uL 1.4-7. 0 normal Not Available [facility] ([facility]) [address] [facility], [place], [address], 12/02/2024 03:38:32 12/02/19 25 12/02/2024 CBC WITH DIFFE RENTI AL/PL ATELE T lymphs (absolute) 1.8 x10e3 /uL 0.7-3. 1 normal Not Available [facility] ([facility]) [address] [place], [address], 12/02/2024 03:38:32 12/02/19 25 12/02/2024 CBC WITH DIFFE RENTI AL/PL ATELE T monocytes(ab solute) 0.5 x10e3 /uL 0.1-0. 9 normal Not Available [facility] ([facility]) [address] [place], [address], 12/02/2024 03:38:32 12/02/19 25 12/02/2024 CBC WITH DIFFE RENTI AL/PL ATELE T eos (absolute) 0.1 x10e3 /uL 0.0-0. 4 normal Not Available [facility] ([facility]) [address] [facility], [place], [address], 12/02/2024 03:38:32 12/02/19 25 12/02/2024 CBC WITH DIFFE RENTI AL/PL ATELE T baso (absolute) 0.0 x10e3 /uL 0.0-0. 2 normal Not Available [facility] ([facility]) [address] [place], [address], 12/02/2024 03:38:32 12/02/19 25 12/02/2024 CBC WITH DIFFE RENTI AL/PL ATELE T immature granulocytes 0 % not estab. Not Available [facility] ([facility]) [address] [place], [address], 12/02/2024 03:38:32 12/02/19 25 12/02/2024 CBC WITH DIFFE RENTI AL/PL ATELE T immature grans (abs) 0.0 x10e3 /uL 0.0-0. 1 Not Available [facility] ([facility]) [address] [place], [address], 12/02/2024 03:38:32 12/02/19 25 12/02/2024 CBC WITH DIFFE RENTI AL/PL ATELE T NRBC PRODUCT SCIENTIST Not Available [facility] ([facility]) [address] [place], [address], 12/02/2024 03:38:32 12/02/19 25 12/02/2024 CBC WITH DIFFE KLAUS AL/PL DIA T hematology comments: PRODUCT SCIENTIST Not Available [facility] ([facility]) [address] [facility], [place], [address], 12/02/2024 03:38:32 12/02/19 25 12/02/2024 COMP. METAB OLIC PANEL (14) glucose 96 mg/dL 70-99 normal Not Available [facility] ([facility]) [address] [facility], [place], [address], 12/02/2024 03:38:33 12/02/19 25 12/02/2024 COMP. METAB OLIC PANEL (14) BUN 5 mg/dL 6-20 below low normal Not Available [facility] ([facility]) [address] [facility], [place], [address], 12/02/2024 03:38:33 12/02/19 25 12/02/2024 COMP. METAB OLIC PANEL (14) creatinine 0.53 mg/dL 0.57-1 .00 below low normal Not Available [facility] ([facility]) [address] [place], [address], 12/02/2024 03:38:33 12/02/19 25 12/02/2024 COMP. METAB OLIC PANEL (14) eGFR 131 mL/mi n/1.7 3 >59 normal Not Available [facility] ([facility]) [address] [place], [address], 12/02/2024 03:38:33 12/02/19 25 12/02/2024 COMP. METAB OLIC PANEL (14) BUN/creatini ne ratio 9 9-23 normal Not Available [facility] ([facility]) [address] [place], [address], 12/02/2024 03:38:33 12/02/19 25 12/02/2024 COMP. METAB OLIC PANEL (14) sodium 136 mmol/ L 134-14 4 normal Not Available [facility] ([facility]) [address] [place], [address], 12/02/2024 03:38:33 12/02/19 25 12/02/2024 COMP. METAB OLIC PANEL (14) potassium 4.5 mmol/ L 3.5-5. 2 normal Not Available [facility] ([facility]) [address] [facility] [place], [address], 12/02/2024 03:38:33 12/02/19 25 12/02/2024 COMP. METAB OLIC PANEL (14) chloride 101 mmol/ L 96-106 normal Not Available [facility] ([facility]) [address] [facility] [place], [address], 12/02/2024 03:38:33 12/02/19 25 12/02/2024 COMP. METAB OLIC PANEL (14) carbon dioxide, total 20 mmol/ L 20-29 normal Not Available [facility] ([facility]) [address] [facility] [place], [address], 12/02/2024 03:38:33 12/02/19 25 12/02/2024 COMP. METAB OLIC PANEL (14) calcium 9.5 mg/dL 8.7-10 .2 normal Not Available [facility] ([facility]) [address] [facility] [place], [address], 12/02/2024 03:38:33 12/02/19 25 12/02/2024 COMP. METAB OLIC PANEL (14) protein, total 6.6 g/dL 6.0-8. 5 normal Not Available [facility] ([facility]) [address] [facility] [place], [address], 12/02/2024 03:38:33 12/02/19 25 12/02/2024 COMP. METAB OLIC PANEL (14) albumin 4.1 g/dL 4.0-5. 0 normal Not Available [facility] ([facility]) [address] [place], [address], 12/02/2024 03:38:33 12/02/19 25 12/02/2024 COMP. METAB OLIC PANEL (14) globulin, total 2.5 g/dL 1.5-4. 5 Not Available [facility] ([facility]) [address] [place], [address], 12/02/2024 03:38:33 12/02/19 25 12/02/2024 COMP. METAB OLIC PANEL (14) bilirubin, total 1.6 mg/dL 0.0-1. 2 above high normal Not Available [facility] ([facility]) [address] [place], [address], 12/02/2024 03:38:33 12/02/19 25 12/02/2024 COMP. METAB OLIC PANEL (14) alkaline phosphatase 83 IU/L 44-121 normal Not Available [facility] ([facility]) [address] [place], [address], 12/02/2024 03:38:33 12/02/19 25 12/02/2024 COMP. METAB OLIC PANEL (14) AST (SGOT) 46 IU/L 0-40 above high normal Not Available [facility] ([facility]) [address] [place], [address], 12/02/2024 03:38:33 12/02/19 25 12/02/2024 COMP. METAB OLIC PANEL (14) ALT (SGPT) 59 IU/L 0-32 above high normal Not Available [facility] ([facility]) [address] [place], [address], 12/02/2024 03:38:33 02/06/20 25 02/06/2025 FE+TI BC+FE R iron bind.cap.(TI BC) 357 ug/dL 250-45 0 normal Not Available [facility] ([facility]) [address] [place], [address], 02/16/2025 18:37:38 02/06/20 25 02/06/2025 FE+TI BC+FE R UIBC 292 ug/dL 131-42 5 normal Not Available [facility] ([facility]) [address] [facility], [place], [address], 02/16/2025 18:37:38 02/06/20 25 02/06/2025 FE+TI BC+FE R iron 65 ug/dL 27-159 normal Not Available [facility] ([facility]) [address] [facility], [place], [address], 02/16/2025 18:37:38 02/06/20 25 02/06/2025 FE+TI BC+FE R iron saturation 18 % 15-55 normal Not Available [facility] ([facility]) [address] [place], [address], 02/16/2025 18:37:38 02/06/20 25 02/06/2025 FE+TI BC+FE R ferritin 256 NG/mL 15-150 above high normal Not Available [facility] ([facility]) [address] [place], [address], 02/16/2025 18:37:38 02/06/20 25 02/06/2025 TSH+F REE T4 TSH 0.967 uIU/m L 0.450- 4.500 normal Not Available [facility] ([facility]) [address] [place], [address], 02/16/2025 18:37:39 02/06/20 25 02/06/2025 TSH+F REE T4 T4,free(dire ct) 0.82 NG/dL 0.82-1 .77 normal Not Available [facility] ([facility]) [address] [place], [address], 02/16/2025 18:37:39 02/06/20 25 02/06/2025 CBC WITH DIFFE RENTI AL/PL ATELE T WBC 6.1 x10e3 /uL 3.4-10 .8 normal Not Available [facility] ([facility]) [address] [place], [address], 02/16/2025 18:37:40 02/06/20 25 02/06/2025 CBC WITH DIFFE RENTI AL/PL ATELE T RBC 4.12 x10e6 /uL 3.77-5 .28 normal Not Available [facility] ([facility]) [address] [place], [address], 02/16/2025 18:37:40 02/06/20 25 02/06/2025 CBC WITH DIFFE RENTI AL/PL ATELE T hemoglobin 12.5 g/dL 11.1-1 5.9 normal Not Available [facility] ([facility]) [address] [place], [address], 02/16/2025 18:37:40 02/06/20 25 02/06/2025 CBC WITH DIFFE RENTI AL/PL ATELE T hematocrit 37.6 % 34.0-4 6.6 normal Not Available [facility] ([facility]) [address] [place], [address], 02/16/2025 18:37:40 02/06/20 25 02/06/2025 CBC WITH DIFFE RENTI AL/PL ATELE T MCV 91 fL 79-97 normal Not Available [facility] ([facility]) [address] [place], [address], 02/16/2025 18:37:40 02/06/20 25 02/06/2025 CBC WITH DIFFE RENTI AL/PL ATELE T MCH 30.3 pg 26.6-3 3.0 normal Not Available [facility] ([facility]) [address] [place], [address], 02/16/2025 18:37:40 02/06/20 25 02/06/2025 CBC WITH DIFFE RENTI AL/PL ATELE T MCHC 33.2 g/dL 31.5-3 5.7 normal Not Available [facility] ([facility]) [address] [facility], [place], [address], 02/16/2025 18:37:40 02/06/20 25 02/06/2025 CBC WITH DIFFE RENTI AL/PL ATELE T RDW 14.0 % 11.7-1 5.4 Not Available [facility] ([facility]) [address] [facility], [place], [address], 02/16/2025 18:37:40 02/06/20 25 02/06/2025 CBC WITH DIFFE RENTI AL/PL ATELE T platelets 230 x10e3 /uL 150-45 0 normal Not Available [facility] ([facility]) [address] [facility], [place], [address], 02/16/2025 18:37:40 02/06/20 25 02/06/2025 CBC WITH DIFFE RENTI AL/PL ATELE T neutrophils 67 % not estab. normal Not Available [facility] ([facility]) [address] [facility], [place], [address], 02/16/2025 18:37:40 02/06/20 25 02/06/2025 CBC WITH DIFFE RENTI AL/PL ATELE T lymphs 27 % not estab. normal Not Available [facility] ([facility]) [address] [facility], [place], [address], 02/16/2025 18:37:40 02/06/20 25 02/06/2025 CBC WITH DIFFE RENTI AL/PL ATELE T monocytes 5 % not estab. normal Not Available [facility] ([facility]) [address] [facility], [place], [address], 02/16/2025 18:37:40 02/06/20 25 02/06/2025 CBC WITH DIFFE RENTI AL/PL ATELE T eos 1 % not estab. normal Not Available [facility] ([facility]) [address] [facility], [place], [address], 02/16/2025 18:37:40 02/06/20 25 02/06/2025 CBC WITH DIFFE RENTI AL/PL ATELE T basos 0 % not estab. normal Not Available [facility] ([facility]) [address] [facility], [place], [address], 02/16/2025 18:37:40 02/06/20 25 02/06/2025 CBC WITH DIFFE RENTI AL/PL ATELE T immature cells PRODUCT SCIENTIST Not Available [facility] ([facility]) [address] [facility], [place], [address], 02/16/2025 18:37:40 02/06/20 25 02/06/2025 CBC WITH DIFFE RENTI AL/PL ATELE T neutrophils (absolute) 4.1 x10e3 /uL 1.4-7. 0 normal Not Available [facility] ([facility]) [address] [place], [address], 02/16/2025 18:37:40 02/06/20 25 02/06/2025 CBC WITH DIFFE RENTI AL/PL ATELE T lymphs (absolute) 1.7 x10e3 /uL 0.7-3. 1 normal Not Available [facility] ([facility]) [address] [place], [address], 02/16/2025 18:37:40 02/06/20 25 02/06/2025 CBC WITH DIFFE RENTI AL/PL ATELE T monocytes(ab solute) 0.3 x10e3 /uL 0.1-0. 9 normal Not Available [facility] ([facility]) [address] [place], [address], 02/16/2025 18:37:40 02/06/20 25 02/06/2025 CBC WITH DIFFE RENTI AL/PL ATELE T eos (absolute) 0.0 x10e3 /uL 0.0-0. 4 normal Not Available [facility] ([facility]) [address] [place], [address], 02/16/2025 18:37:40 02/06/20 25 02/06/2025 CBC WITH DIFFE RENTI AL/PL ATELE T baso (absolute) 0.0 x10e3 /uL 0.0-0. 2 normal Not Available [facility] ([facility]) [address] [place], [address], 02/16/2025 18:37:40 02/06/20 25 02/06/2025 CBC WITH DIFFE RENTI AL/PL ATELE T immature granulocytes 0 % not estab. Not Available [facility] ([facility]) [address] [place], [address], 02/16/2025 18:37:40 02/06/20 25 02/06/2025 CBC WITH DIFFE RENTI AL/PL ATELE T immature grans (abs) 0.0 x10e3 /uL 0.0-0. 1 Not Available [facility] ([facility]) [address] [place], [address], 02/16/2025 18:37:40 02/06/20 25 02/06/2025 CBC WITH DIFFE RENTI AL/PL ATELE T NRBC PRODUCT SCIENTIST Not Available [facility] ([facility]) [address] [place], [address], 02/16/2025 18:37:40 02/06/20 25 02/06/2025 CBC WITH DIFFE RENTI AL/PL ATELE T hematology comments: PRODUCT SCIENTIST Not Available [facility] ([facility]) [address] [place], [address], 02/16/2025 18:37:40 02/06/20 25 02/06/2025 COMP. METAB OLIC PANEL (14) glucose 89 mg/dL 70-99 normal Not Available [facility] ([facility]) [address] [place], [address], 02/16/2025 18:37:42 02/06/20 25 02/06/2025 COMP. METAB OLIC PANEL (14) BUN 7 mg/dL 6-20 normal Not Available [facility] ([facility]) [address] [place], [address], 02/16/2025 18:37:42 02/06/20 25 02/06/2025 COMP. METAB OLIC PANEL (14) creatinine 0.43 mg/dL 0.57-1 .00 below low normal Not Available [facility] ([facility]) [address] [place], [address], 02/16/2025 18:37:42 02/06/20 25 02/06/2025 COMP. METAB OLIC PANEL (14) eGFR 137 mL/mi n/1.7 3 >59 normal Not Available [facility] ([facility]) [address] [place], [address], 02/16/2025 18:37:42 02/06/20 25 02/06/2025 COMP. METAB OLIC PANEL (14) BUN/creatini ne ratio 16 9-23 normal Not Available [facility] ([facility]) [address] [place], [address], 02/16/2025 18:37:42 02/06/20 25 02/06/2025 COMP. METAB OLIC PANEL (14) sodium 136 mmol/ L 134-14 4 normal Not Available [facility] ([facility]) [address] [place], [address], 02/16/2025 18:37:42 02/06/20 25 02/06/2025 COMP. METAB OLIC PANEL (14) potassium 4.5 mmol/ L 3.5-5. 2 normal Not Available [facility] ([facility]) [address] [facility] [place], [address], 02/16/2025 18:37:42 02/06/20 25 02/06/2025 COMP. METAB OLIC PANEL (14) chloride 105 mmol/ L 96-106 normal Not Available [facility] ([facility]) [address] [place], [address], 02/16/2025 18:37:42 02/06/20 25 02/06/2025 COMP. METAB OLIC PANEL (14) carbon dioxide, total 17 mmol/ L 20-29 below low normal Not Available [facility] ([facility]) [address] [place], [address], 02/16/2025 18:37:42 02/06/20 25 02/06/2025 COMP. METAB OLIC PANEL (14) calcium 9.7 mg/dL 8.7-10 .2 normal Not Available [facility] ([facility]) [address] [place], [id number], 02/16/2025 18:37:42 02/06/20 25 02/06/2025 COMP. METAB OLIC PANEL (14) protein, total 6.2 g/dL 6.0-8. 5 normal Not Available [facility] ([facility]) [address] [place], [id number], 02/16/2025 18:37:42 02/06/20 25 02/06/2025 COMP. METAB OLIC PANEL (14) albumin 3.8 g/dL 4.0-5. 0 below low normal Not Available [facility] ([facility] [address] [facility] [place], [address], 02/16/2025 18:37:42 02/06/20 25 02/06/2025 COMP. METAB OLIC PANEL (14) globulin, total 2.4 g/dL 1.5-4. 5 Not Available [facility] ([facility]) [address] [place], [address], 02/16/2025 18:37:42 02/06/20 25 02/06/2025 COMP. METAB OLIC PANEL (14) bilirubin, total 0.5 mg/dL 0.0-1. 2 normal Not Available [facility] ([facility]) [address] [place], [address], 02/16/2025 18:37:42 02/06/20 25 02/06/2025 COMP. METAB OLIC PANEL (14) alkaline phosphatase 85 IU/L 44-121 normal Not Available [facility] ([facility]) [address] [place], [address], 02/16/2025 18:37:42 02/06/20 25 02/06/2025 COMP. METAB OLIC PANEL (14) AST (SGOT) 22 IU/L 0-40 normal Not Available [facility] ([facility]) [address] [place], [address], 02/16/2025 18:37:42 02/06/20 25 02/06/2025 COMP. METAB OLIC PANEL (14) ALT (SGPT) 22 IU/L 0-32 normal Not Available [facility] ([facility]) [address] [place], [address], 02/16/2025 18:37:42 02/06/20 25 02/16/2025 VITAM IN E vitamin E(alpha tocopherol) 13.7 mg/L 5.9-19 .4 Not Available [facility] ([facility]) [address] [place], [address], 02/16/2025 18:37:43 02/06/20 25 02/16/2025 VITAM IN E vitamin E(gamma tocopherol) 2.6 mg/L 0.7-4. 9 Refer ence inter vals for alpha and gamma -toco phero l deter mined from [facility] Nutri tion Exami natio n Surve y, 2004- 2005. Indiv idual s with alpha -toco phero l level s less than 5.0 mg/L are consi dered vitam in E defic ient. Not Available [facility] ([facility]) [address] [facility], [place], [address], 02/16/2025 18:37:43 02/06/20 25 02/06/2025 FOLAT E (FOLI C ACID) , SERUM folate (folic acid), serum 4.2 NG/mL >3.0 normal A serum folat e matt ntrat ion of less than 3.1 ng/mL is consi dered to repre sent clini abby defic iency . Not Available [facility] ([facility]) [address] [facility], [place], [address], 02/16/2025 18:37:44 02/06/20 25 02/16/2025 VITAM IN A, SERUM vitamin A 25.2 ug/dL 18.9-5 7.3 Refer ence inter vals [...] Drug Admin istra tion. Not Available [facility] ([facility]) [address] [facility], [place], [address], 02/16/2025 18:37:45 02/06/20 25 02/06/2025 VITAM IN D, 25-HY DROXY vitamin D, 25-hydroxy 28.5 NG/mL 30.0-1 00.0 below low normal Vitam in D defic iency has been [...] 1. IOM (Inst itute of Medic ine). 2010. Dieta ry refer ence intak es for calci um and D. Lucretia pleitez [place]: [facility] . 2. Reinaldo moreno MF, Eileen mccann [place], David off-F errar i LILLY, et al. Evalu ation , treat ment, and preve ntion of vitam in D defic iency : an Endoc rine Socie ty clini abby pract ice guide line. JCEM. 2010; 96(7) :1911 -30. Not Available [facility] ([facility]) [address] [place], [address], 02/16/2025 18:37:46 02/06/20 25 02/08/2025 VITAM IN B1 (THIA MINE) , BLOOD vit. B1, whole blood 85.2 nmol/ L 66.5-2 00.0 Not Available [facility] ([facility]) [address] [place], [address], 02/16/2025 18:37:47 02/06/20 25 02/08/2025 METHY LMALO JAREK ACID, SERUM methylmaloni c acid, serum 79 nmol/ L 0-378 Not Available [facility] ([facility]) [address] [place], [address], 02/16/2025 18:37:48 02/06/20 25 02/09/2025 COPPE R, SERUM OR PLASM A copper, serum or plasma 188 ug/dL 80-158 above high normal Detec tion Limit = 5 Not Available [facility] ([facility]) [address] [place], [address], 02/16/2025 18:37:49 02/06/20 25 02/09/2025 ZINC, PLASM A OR SERUM zinc, plasma or serum 46 ug/dL 44-115 normal Detec tion Limit = 5 Not Available [facility] ([facility]) [address] [facility] [place], [place], [address], 02/16/2025 18:37:50 02/06/20 25 02/06/2025 PREAL BUMIN prealbumin 16 mg/dL 14-35 Not Available [facility] ([facility]) [address] [facility] [place], [place], [address], 02/16/2025 18:37:51 02/06/20 25 02/07/2025 SELEN IUM, BLOOD selenium, blood 125 ug/L 100-34 0 Detec tion Limit = 10 Not Available [facility] ([facility]) [address] [facility] [place], [place], [address], 02/16/2025 18:37:52 Result Notes None recorded. Problems Name Problem SNOMED Code Status Onset Date Resolution Date Notes Provider Name and Address Organization Details Recorded Time Paresthesi a of upper limb 12643408 Active 2023 Raquel Guillen, [address], [place], [address] , [place] [facility] & [place] 4 15:38:11 Essential hypertensi on 11714780 Active 2023 RON Azar [address] , [place], [address] , [place] - [facility] & [place] 4 12:30:28 Obesity 420586715 Active 2023 RON Azar [address] , [place], [address] , [place] [facility] & [place] 4 12:30:50 Disorder of function of stomach 958589268 Active 2023 RON Azar [address] , [place], [address] , [place] - [facility] & [place] 4 12:30:50 Impaired glucose tolerance 5018624 Active 2023 RON Azar [address], [place], [address] , [place] [facility] 4 12:31:02 Postoperat nicholas pain 970126117 Active 2024 RON Azar [address] , [place], [address] , [place] [facility] 5 08:04:37 Contact dermatitis 69425763 Active 2024 RON Azar [address] , [place], [address] , [place] 5 10:32:01 Nausea 642738875 Active 2024 RON Azar [address] , [place], [address] , [place] 5 09:06:20 Nausea and vomiting 70712332 Active 2024 RON Azar [address] , [place], [address] , [place] 5 10:19:41 Bilious vomiting 21627850 Active 2024 RON Azar [address] , [place], [address] , [place] 5 09:06:37 Mild dehydratio n 8219684307434 Active 2024 RON Azar [address], [place], [address] , [place] [facility] & [place] 5 09:09:44 Intentiona l weight loss 788627307 Active [address], [place], [address] , [place] [facility] & [place] 5 09:06:38 Body mass index 40+ - severely obese 907523986 Active 2024 RON Azar [address], [place], [address] , [place] 5 09:07:05 Severe obesity 4065158491109 4 Active 2024 RON Azar [address], [place], [address] , [place] 5 09:07:24 Nutritiona l deficiency state 35270450 Active 2024 RON Azar [address], [place], [address] , [place] 5 10:04:26 Epigastric pain 45094098 Active 2024 RON Azar [address], [place], [address] , [place] 5 10:16:35 Gestation period, 13 weeks 37355678 Active 2024 RON Azar [address], [place], [address] , [place] 5 10:26:24 Gestation period, 19 weeks 86934582 Active 2024 RON Azar [address], [place], [address] , [place] 5 13:38:05 Protein level - finding 444318935 Active 2024 RON Azar [address], [place], [address] , [place] 5 13:39:22 Vitamin D deficiency 74771757 Active 2024 RON Azar [address], [place], [address] , [place] 5 13:40:16 Heartburn 48756127 Active 2024 RON Azar [address], [place], [address] , [facility] & [place] 11:23:29 Problem Notes None recorded. Procedures Surgical History Date Name Laterality Status Provider Name and Address Organization Details Recorded Time 10/16/19 25 procedure on duodenum completed Parris Torres [facility] & [place] 11/09/2024 08:47:34 12/09/19 24 EMG/ Nerve Conduction Study completed Raquel Guillen DO [address], [place], [address], [facility] & [place] 12/09/2023 15:38:04 Cholecystectomy completed RON Azar [address], [place], [address], [facility] & [place] 07/04/2024 12:57:53 extraction of wisdom tooth completed Parris Torres [facility] & [place] 07/03/2024 15:07:44 Tonsillectomy completed Parris Torres [facility] & [place] 07/03/2024 15:07:52 procedure on ganglion cyst completed Stephanie Castro [facility] & [place] 10/04/2024 07:53:08 Imaging Results None [...] cm 97.1 [degF] 91 /min 40.5 kg/m2 684361. 35 g 141/100 mm[Hg] Stephanie Castro [facility] 5 09:49:04 Date Recorded Body height Body mass index (BMI) Body weight Body temperature Heart rate Systolic And Diastolic Provider Name and Address Organization Details Last Updated DateTime 5 170.18 cm 38.1 kg/m2 988853. 66 g 97.9 [degF] 99 /min 134/89 mm[Hg] Parris Torres [facility] 5 13:17:54 Date Recorded Body height Body mass index (BMI) Body weight Body temperature Oxygen saturation Oxygen saturation in Arterial blood by Pulse oximetry Heart rate Systolic And Diastolic Provider Name and Address Organization Details Last Updated DateTime 5 170.18 cm 35.9 kg/m2 652308. 45 g 97.4 [degF] 99 % 99 % 80 /min 112/78 mm[Hg] Flora Becerril [facility] & [place] 5 11:14:40 Social History Question Answer Notes LastModified by Organizethority Details LastModified Time Tobacco Smoking Status Never Smoker Parris Torres [facility], [facility] & [place] 07/03/2024 15:12:10 What Is Your Level Of Caffeine Consumption? Occasional [email or web address] Information not available 07/04/2024 Sex: Female Functional Status Question Answer Note LastModified by Organizethority Details LastModified Time Do you use any illicit or recreational drugs? No [email or web address] Information not available 07/03/2024 What is your level of alcohol consumption? Occasional [email or web address] Information not available 07/03/2024 Mental Status None recorded. Family History Relationship Description Onset Age of this Age Resolved Age Notes LastModified by Organization Details LastModified Time Father Hypertensive disorder [email or web address] Not available 06/2024 15:12:25 Father Hypercholest erolemia [email or web address] Not available 06/2024 15:12:51 Mother Hypertensive disorder [email or web address] Not available 06/2024 15:12:25 Mother Hypercholest erolemia [email or web address] Not available 06/2024 15:12:51 Mother Asthma [email or web address] Not availabl e 07/04/2024 13:49:15 Mother Chronic obstructive pulmonary disease [email or web address] Not available 06/2024 15:13:21 Maternal Grandmother Hypertensive disorder [email or web address] Not available 06/2024 15:12:25 Maternal Grandmother Chronic obstructive pulmonary disease Not available 06/2024 15:13:21 Maternal Grandfather Malignant neoplasm of lung [email or web address] Not available 06/23 13:49:15 Brother Asthma [email or web address] Not availab le 07/04/2024 13:49:15 Sister Asthma [email or web address] Not availabl e 07/04/2024 13:49:15 Medical History [...] ICD10 Code Diagnosis IMO Codes Diagnosis Note [id number] Raquel Guillen, ZZ [facility] [address] [facility] [place] [address] 12/09/2023 15:31:14 12/09/2023 16:01:57 Paresthesia of upper limb 99282732 R20.2 [id number] RON Azar [facility] [address] [facility] [address] [place] [address] 07/04/2024 11:29:18 07/04/2024 14:10:15 Obesity 063309246 E66.9 The patient will be scheduled for [...] completed Disorder o f function of stomach 497223287 K31.89 Pre-surger y evaluation 887743747 Z01.818 Obesity screening 398377 005 Z13.89 Essential hypertension 46640331 I10 Impaired g lucose tolerance 5289825 R73.[id number] [facility] [address] [facility] [address] [place] [address] 07/04/2024 13:49:08 07/04/2024 14:22:02 Dietary management surveillance 297521572 Z71.3 Completed nutrition evaluation and education with [...] to patient based on recommende d surgery. [id number] Forest Mena MD [facility] [address] [address] [place] [address] 08/01/2024 09:01:56 08/01/2024 09:49:38 Preoperative cardiovascular examination 872673972 Z01.810 23-year-ol d female sent for preoperati ve cardiovasc ular evaluation for weight loss surgery. She is physically active asymptomat ic can do more than 6 METs with no limitation s. EKG normal sinus rhythm. She can proceed with the surgery as low risk patient for moderate risk procedure from the cardiovasc ular standpoint . Obesity 575375077 E66.9 obesity body mass index 49.8. For weight loss surgery. Recommend sleep apnea evaluation . Essential hypertension 69028380 I10 hypertensi on on hydrochlor othiazide. Recommend switching to beta mathew because she is in the childbeari ng age. Patient declined at this time. She understand s the possible side effects of hydrochlor othiazide. [id number] [address] [facility] [address] [facility] [address] [place] [address] 08/08/2024 12:37:07 08/08/2024 13:20:53 Dietary management surveillance 195759356 Z71.3 [id number] KALI HAMILTON MD [facility] [address] [facility] [address] [place] [address] 10/04/2024 07:39:52 10/04/2024 14:13:26 Morbid obesity 602743280 E66.01 Pre-surger y evaluation 941509369 Z01.818 Postoperative pain 64864 9007 G89.18 pt will continue pregabalin post operativel y Essential hypertension 27559990 I10 Impaired g lucose tolerance 5963567 R73.03 [id number] RON Azar [facility] [address] [facility] [address] [place] [address] 10/24/2024 07:55:40 10/24/2024 10:33:45 History of gastrectomy 939572255 Z90.3 Encouraged patient to continue focus on intake of adequate protein and hydration. Advised minimum 70 g of protein and 800 calories. Patient is to continue incentive spirometer for another 5-7 days Encouraged ambulation Patient is to start bariatric approved vitamin Follow up 3 weeks Contact dermatitis 52854 004 L25.9 Likely from surgical glue. Patient advised to keep area clean. She may apply Benadryl cream or calamine lotion. Advised she take Zyrtec q.a.m. and Benadryl q.p.m.. Advised she avoid scratching these areas. She is report any worsening symptoms. [id number] RON Azar [facility] [address] [place] [address] [address] [place] [address] 11/09/2024 08:34:40 11/09/2024 14:27:44 Nausea and vomiting 59626833 R11.2 3310329467 Long discussion today regarding adherence to advise [...] UGI to further evaluate - pt request [facility].Alexander bowen is advised to call or go to the ED for any acute worsening of abdominal symptoms.Alexander bowen is to keep scheduled follow-up 11/17/2024 Mild dehydration 6252514 119 108 E86.0 302747 Patient will have to a L normal saline IV rehydratio n today in office. History of gastrectomy 831871640 Z90.3 685808 s/p TORI-s 10/16/24 [id number] RON Azar [facility] [address] [place], [place] [address] 11/17/2024 08:51:00 11/17/2024 09:41:49 Disorder of function of stomach 260130480 K31.89 Long discussion with patient regarding fatigue [...] call for any worsening symptoms Essential hypertension 38130385 I10 Stop monitor and discussed with PCP Impaired g lucose tolerance 1925912 R73.03 History of gastrectomy 196028606 Z90.3 We discussed diet and the importance [...] of [place] risk of nutritional deficit 772555710 Z91.89 Severe obesity 183609553 1 9104 E66.813 E66.01 Z68.41 3492917158 [id number] [facility] [address] [facility] [address] [place], [place] [address] 11/17/2024 09:37:00 11/17/2024 10:29:59 Diet education 95824938 Z71.3 343407 [id number] RON Azar [facility] [address] [place] [address] 12/01/2024 09:40:04 12/01/2024 10:22:02 Nausea and vomiting 15659137 R11.2 7605933619 Long discussion with patient regarding fatigue and nausea specifical ly related to caloric intake.Carmen thorne will be prescribed Compazine. Patient advised she is to use this medication to facilitate p.o. intake. Encouraged patient to continue focus on p.o. intake, constantly sip on fluids/abby ories/prot ein in order to get an minimal amounts.Ron benjamni is to continue vitamin supplement ation. We will give patient B1 and B12 injection today.We are checking labs today and will follow up patientPla n follow-up 2-3 weeks after EGD has been resulted Nutritiona l deficiency state 31898020 E63.9 29140 Encouraged patient see focus on p.o. intake. Advised she continue small frequent sips of protein drinks. History of gastrectomy 189589360 Z90.3 s/p Tori-s 10/16/24 with continued struggles including nausea vomiting p.o. intake.Carmen thorne had upper GIPatient will be scheduled for upper endoscopy for further evaluation Epigastric pain 28489361 R10.13 07886 Advised patient to continue omeprazole . We [...] atient is advised to go to this [place] ED for any acute worsening symptoms [id number] [address] [facility] [address] [facility] [address] [place] [address] 12/27/2024 09:45:05 12/27/2024 11:07:46 Diet education 65621972 Z71.3 828853 [id number] RON Azar [facility] [address] [facility] [address] [place] [address] 12/27/2024 09:47:12 12/27/2024 12:24:19 Gestation period, 13 weeks 91700276 Z3A.13 6770079 Pt seen with Dr Guillen today.Advi sed to continue vitamins. Next labs due January 2025Pt has appt with factory representative today to discuss caloric need. Advise minimal 6148-2911 calories daily and [address] appt today [place] to establish carePt given copy of recent labs to share with OB History of gastrectomy 399623147 Z90.3 236287 s/p Tori-s 10/16/24Fol lowup with labs January 2025 [id number] RON Azar [facility] [address] [facility] [address] [place] [address] 02/05/2025 13:13:06 02/05/2025 13:59:10 Gestation period, 19 weeks 13625626 Z3A.19 9440703 is progressin g well. Patient has a follow-up with obstetrici an on 02/07/2025 We are drawing labs today and we shared these with her obstetrici an. Nausea 352958535 R11.0 17949543 Patient has prescripti on of Zofran. She is to use this as needed. Nutritiona l assessment 414728697 Z00.8 226391 Encouraged patient track calories and protein. Advised 12-1500 calories and 80 g of protein daily.Evita ent declines dietitian visit todayPatie nt is to continue vitamin supplement ation. We are checking bariatric vitamin panel will contact patient to correct any deficienci es History of gastrectomy 244332276 Z90.3 Advised qid intake 50% protein 8682-5852 calories/d y less than 100 carbs/dy Patient is status post bariatric surgery and at increased risk for vitamin deficienci es and malnutriti on. Bariatric vitamin panel ordered today. Patient will be contacted to correct any vitamin deficienci es. [facility] 656834539 Z91.89 Protein le eugene - finding 462731926 R79.89 125016 Vitamin D deficiency 347 00710 E55.9 59040 [id number] RON Azar [facility] [address] [facility] [address] [place] [address] 05/11/2025 11:05:40 05/11/2025 11:31:29 Heartburn 42440782 R12 73511 heartburn is to be expected with . Patient is to continue Tums as needed. She is to call for any worsening heartburn Normal 6889324 2 Z34.93 62353314 patient is now 32 weeks gravid. she is to continue to follow up with her obstetrici an.Discuss ed healthy nutrition to support . Encouraged patient to continue focus on protein fruits and vegetables . Small frequent meals Advised.Ron benjamin is to meet with our dietitian today. History of gastrectomy 253361970 Z90.3 387582 Patient is status post bariatric surgery and at increased risk for vitamin deficienci es and malnutriti on. Patient is to continue vitamin supplement ation. We will recheck vitamin levels at next office visit [id number] [facility] [address] [facility] [address] [place] [address] 05/11/2025 11:30:41 05/11/2025 12:10:39 Diet education 77094845 Z71.3 [id number] Health Concerns Section Related Observation LastModified by Organization Detai ls LastModified Time None Recorded Concern Status LastModified by Organization Details LastModified Time None Recorded Advance Directives Directive None Recorded Payers Insurance Date Sequence Insurance Name Policy Number Policy Sanchez Covered Member ID Sanchez Member ID Guarantor Name 06/21/2024 1 [facility] [place] Penelope Christina [id number] Penelope Christina 11/06/2024 [facility] [id number] Penelope Christina [id number] Penelope Christina 06/21/2024 2 [facility] [id number] 1 Penelope Christina [id number] Penelope Christina 08/01/2024 1 [facility] Penelope Christina [id number] Penelope Christina 05/14/2025 1 [facility] [place] - [place] [facility] Penelope Christina [id number] Penelope Christina Notes Date Note Type Note Provider Name and Address Organization Details Recorded Time 12/27/2024 text/html ROS as noted in the HPI Patient presented for EGD on 12/14/2024 and was [...] visit s/p Tori-s 10/16/ UGI (Read as [facility]) No stricture identified no hiatal [...] to return to work. 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 Pt is now 12 [...] minutes and eating once every hourmorning: sausage burritosnacklunchdinne r: 3 course mealprotein shakes sometimes - corepowerdoing regular chocolate milk Drinks: body armor, water, sprite zero to help nausea Foods Not Tolerated: none noted Additional notes/concerns: Able to get food stamps and getting WIC, [employer], housing assistance ISRAEL HERNÁNDEZ, RD [address] [facility], [place], [address], [place] - [place] [facility] & [place] 12/27/2024 11:07:36 02/05/2025 text/html ROS as noted in the HPI s/p Tori-s 10/16/24OB is Dr Faye Hartmann. 12/28/24 Ultrasound shows [...] she is doing well. She states her [employer] consultant has her this the subchorionic hematoma is [...] Tori-s 10/16/ UGI (Read as [facility]) No stricture identified no hiatal [...] to return to work. 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 OB is Dr Faye Hartmann. Patient presents the office today for routine follow-up status post bariatric surgery.Pt is now 32 wks gravid. . She is having baby boy. she states everything is going well. Her [employer] consultant seems to be happy with things. She [...] states she had recent labs with her [employer] consultant approximately 2 weeks ago and they were [...] she is doing well. She states her [employer] consultant has her this the subchorionic hematoma is [...] to take medication during . RON Azar [address], [place], [address], [facility] - [place] & [place] 05/11/2025 12:11:51 05/11/2025 text/html RDN met w/ pt for f/up s/p TORI-S. Pt is now 32 weeks . 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 daily kcal intake: 6701-9415 Est. daily protein intake: 70-90 Est. daily fluid intake: 50+ oz Meal Frequency/Pattern: eating almost every hour and doing protein focusedprotein shakes in the morning, protein spaghetti, eggs, adding in more beans, tuna, oikos drinks Drinks: body armor water Foods Not Tolerated: none noted Additional notes/concerns: Able to get food stamps and getting WIC, [employer], housing assistance ISRAEL HERNÁNDEZ, [address], [place], [address], [facility] - [place] & [place] 05/11/2025 11:50:26 OBGyn Episode No OBEpisode recorded.
--- OUTSIDE RECORDS SUMMARY | 2025-05-21 10:52 | XMS_ITS | Encounter Summary ---
Author Organization [facility] P Address [facility] [place] [address] Phone Care Team Providers Care Billing Analyst Name Role Phone Karishma Torres MD Primary Care Provider [phone] Nola Dowling MD Primary Care Provider Eben Ball MD Primary Care Provide r Pcp, Nagi HERNANDEZ Primary Care Provider Encounter Details Date Type Department Care Team (Late st Contact Info) Description 07/26/[address] [address] Morgan Samaniego MD [address] [place] [address] [address] [place] [address] Social History Tobacco Use Types [...] documented as of this encounter Care Teams Billing Analyst Relationship Specialty Start Date End Date Karishma Torres MD PCP - General Family Medicine 03/19/20 02/19/21 Nola Dowling MD PCP - General Family Medicine 02/20/21 02/21/24 Eben Ball MD PCP - General Family Medicine 02/22/24 02/25/25 PcpNagi MD No Address [place], [place] PCP - General Internal Medicine 02/26/25 documented as of this encounter
--- OUTSIDE RECORDS SUMMARY | 2025-05-21 10:52 | XMS_ITS | Clinical Summary ---
Author Organization [facility] Address [address], [address] [place] [address] Care Team Providers Care Failure Analysis Engineer Name Role Phone [facility] Primary Care Provider Unav ailable Allergies No [...] Plan of Treatment Not on file Insurance [facility] [place] Care Teams Failure Analysis Engineer Relationship Specialty Start Date End Date [facility] PCP - General 07/29/21
== END 2025-05-18 23:59 ==
LOC: LAB.DROPOF 05-21 10:47
PROVIDERS: PCP Obstetrics & Gynecology; Visit Provider Obstetrics & Gynecology
DX: O16.1 Unspecified maternal hypertension, first trimester (principal); O09.291 Supervision of pregnancy with other poor reproductive or obstetric history, first trimester; Z3A.00 Weeks of gestation of pregnancy not specified
CPT/HCPCS: 87086; 87088; 87186

== ENCOUNTER 2025-05-28 15:30 | Outpatient (CLI) | payer OTHER, SELFPAY ==
--- OUTSIDE RECORDS SUMMARY | 2025-05-29 01:42 | XMS_ITS | Clinical Summary ---
Author Organization [facility] Address [address] [place] [address] Care Team Providers Care Store Sales Consultant Name Role Phone Felipa Her APRN Primary Care Provider [phone] Allergies No known active allergies Medications hydroCHLOROthiazid e (HYDRODIURIL) 12.5 MG tablet 1 tablet. 03/30/20 23 Active Cholecalciferol (Vitamin D3) 1.25 MG (09438 UT) capsule TAKE ONE CAPSULE BY MOUTH [...] Description 03/09/2025 9:15 AM EDT Office Visit [facility] [address] [place] [id number] Elvira Wang MD Subchorionic hematoma, antepartum, single or unspecified fetus (Primary Dx) 03/09/2025 8:55 AM EDT - 03/09/2025 11:59 PM EDT Hospital Encounter [facility] US PER [facility] [address] [place] [address] Karolyn Keen MD Previous delivery [...] fetus from Last 3 Months Results * [facility] (03/09/2025 9:29 AM EDT) Anatomical Region Laterality Modality Ultrasound 03/09/2025 9:07 AM EDT Narrative 03/13/2025 4:51 PM EDT PAT NAME: PENELOPE MERRITT MED REC#: [id number] DA: [id number] PAT GEND: F PAT TYPE: O EXAM PATRICK: [id number] REF PHYS LISSETTE OLIVEROS Comparison Studies The [...] EFW (oz) 4 oz EFW by: Hadlock ([id number]) Extended Cav. septi pel. tr 4.6 mm Case Finishing Machine Adjuster 6.8 mm CM 8.7 mm 98% Nicolaides [...] IVC: Appears Normal 3-vessel view: Appears normal 3-ttbtwn-hnpedoc view: Appears normal Cord insertion: Normal Stomach: Appears normal Kidneys: Appears normal Bladder: Appears normal Gender: male Wants to know gender: yes Maternal Structures Uterus / Cervix Cervix: Visualized Approach: Transabdominal Cervical length 53.0 mm Impression Cephalic S=D Normal appearing limited anatomy Small anterior DENISE Normal fluid Low lying placenta (posterior) Recommendation Follow up as clinically indicated Bleeding precautions reviewed Coding ======= Description: 67739-63 Follow Up Freight Booker: RT Roxanne Dawson , [place] Physician: Elvira Wang MD, FACOG Electronically signed by: Elvira Wang MD, GAELOG at: 16:51 Procedure Note Elvira Wang MD - 03/13/2025 PAT NAME: PENELOPE MERRITT MED REC#: [id number] DA: 2000 PAT GEND: F PAT TYPE: O EXAM PATRICK: [id number] REF PHYS LISSETTE OLIVEROS Comparison Studies The findings of this study are compared to the prior ultrasound studydated Patient Status Outpatient Indication ======== subchorionic hemorrhage. Obesity BMI 39. H/O gestational hypertension. H/Obariatric surgery Maternal Assessment Sbgaij405 cm Height (ft)5 ft Height (in)6 in Dgkvgo267 kg Weight (lb)240 lb BMI38.57 kg/m Method ======= Transabdominal ultrasound examination. View: Good view ========= Herrera . Number of fetuses: 1 Dating ====== Method of dating:based on stated CAYLA GA by prior fvxdetppac77 w + 4 d CAYLA by prior assessment:07/02/2025 Ultrasound examination on:03/09/2025 GA by U/S based upon:AC, BPD, Femur, HC GA by U/S23 w + 0 d CAYLA by U/S:07/06/2025 Previous dating:based on stated CAYLA, selected on 12/27/2024 Agreed CAYLA of previous datin07/02/2025 Assigned:based on stated CAYLA, selected on 03/09/2025 Assigned GA23 w + 4 d Assigned CAYLA:07/02/2025 [id number] d Biometry Standard BPD54.5 mm 22w 4d 13% Hadlock OFD74.2 mm 24w 4d 79% Meagan HC206.6 mm 22w 5d 10% Hadlock Cerebellum tr26.6 mm 23w 6d 79% Hill AC184.6 mm 23w 2d 32% Hadlock Femur41.2 mm 23w 3d 31% Hadlock Pjhjjmr88.8 mm 23w 5d 45% Meagan HC / AC1.12 BEV208 g 23w 0d 27% Hadlock EFW (lb)1 lb EFW (oz)4 oz EFW by:Hadlock ([id number]) Extended Cav. septi pel. tr4.6 mm Vp6.8 mm CM8.7 mm 98% Nicolaides Head / Face / Neck Cephalic index0.73 7% Nicolaides Extremities / Bony Struc FL / BPD0.76 FL / HC0.20 FL / AC0.22 Other Structures ARY406 bpm General Evaluation Cardiac activity present. FHR [...] SVC:Appears Normal IVC:Appears Normal 3-vessel view:Appears normal 6-egmzhx-nzxfbqw view:Appears normal Cord insertion:Normal Stomach:Appears normal Kidneys:Appears normal Bladder:Appears normal Gender:male Wants to know gender:yes Maternal Structures Uterus / Cervix Cervix:Visualized Approach:Transabdominal Cervical kknxog29.0 mm Impression Cephalic S=D Normal appearing limited anatomy Small anterior DENISE Normal fluid Low lying placenta (posterior) Recommendation Follow up as clinically indicated Bleeding precautions reviewed Coding ======= Description:[id number] Follow Up Freight Booker: Genoveva North RT R , [facility] Physician: Elvira Wang MD, FACOG Electronically signed by: Elvira Wang MD, FACOG at: :51 us Karolyn Keen MD IMG US ORDERABLES Final Res ult from Last 3 Months Insurance [facility] Care Teams Store Sales Consultant Relationship Specialty Start Date End Date Felipa Her APRN [address] [place] [address] [place] [id number] PCP - General Nurse Practitioner 08/10/23
--- OUTSIDE RECORDS SUMMARY | 2025-05-29 01:42 | XMS_ITS | Patient Health Record ---
[facility] Address [address] [place] [id number] Care Team Providers Care Sleeping Bag Filler Name Role Phone Thor May Primary Care Provider Unavail able Roxanne Dillon Unavailable [phone] Reason For Referral No Information Medications Medication SIG (Take, Route, Frequency, Duration) Notes Start Date End Date Status A TUSS DM 1/ 1 TSP PO QID; Duration: PRN *Please review for potential replacement for e-prescription and drug interaction check* Active Plan Of Treatment No Information Medical (General) History Surgical History Surgery Date(Month/Year) adnoidectomy tonsillectomy
--- OUTSIDE RECORDS SUMMARY | 2025-05-29 01:42 | XMS_ITS | Data Portability ---
Author Organization [place] [facility] AD[facility] Address [address] [place] [id number] Care Team Providers Care Bench Lay Out Technician Name Role Phone KARLOS CHESTER Primary Care Provider [phone] Assessment Encounter Date Assessment Date Assessment LastModified [...] 64 fluid oz, try to get in 6157-7648 calories starting now 7. Use [employer] dot to track 8. Take vitamins as [...] modifications. Will f/up as scheduled or PRN. [email or web address] Not available 12/27/2024 11:07:23 05/11/2025 05/11/2025 A [...] f/up as scheduled or PRN. Not available 05/11/2025 11:50:11 Plan of Treatment Reminders Order Date Submit Date Provider Last Modified By Organization Details Last Modified Time Details Appointments OV EST 20 2024 11:20A RON Sinclair Not available Not available Not available Lab vitamin D, 25-hydro xy, total, serum 2024 025 [facility], [address], [address], [place], [address], 02/16/2025 18:37:46 copper, serum or plasma 2024 025 [facility], [address], [address], [place], [address], 02/16/2025 18:37:49 selenium , quantita tive, blood 2024 025 [facility], [address], [address], [place], [address], 02/16/2025 18:37:52 prealbum in, serum 2024 025 [facility], [address], [address], [place], [address], 02/16/2025 18:37:51 zinc, serum or plasma 2024 025 [facility], [address], [address], [place], [address], 02/16/2025 18:37:50 folate, serum 2024 025 [facility], [address], [address], [place], [address], 02/16/2025 18:37:44 thiamine , QN, blood 2024 025 [facility], [address], [address], [place], [address], 02/16/2025 18:37:47 methylma lonate, QN, serum or plasma 2024 025 [facility], [address], [address], [place], [address], 02/16/2025 18:37:48 iron + TIBC + ferritin , serum 2024 025 [facility], [address], [address], [place], [address], 02/16/2025 18:37:38 CBC w/ auto diff 2024 025 [facility], [address], [address], [place], [address], 02/16/2025 18:37:40 CMP, serum or plasma 2024 025 [facility], [address], [address], [place], [address], 02/16/2025 18:37:42 vitamin E, serum 2024 025 [facility], [address], [address], [place], [address], 02/16/2025 18:37:43 vitamin A (retinol ), serum 2024 025 [facility], [address], [address], [place], [address], 02/16/2025 18:37:45 TSH + free T4, serum 2024 025 [facility], [address], [address], [place], [address], 02/16/2025 18:37:39 Referral None recorded . Procedures [...] /uL 3.4-10 .8 normal Not Available [facility] ([facility]) [address] [place], [address], 12/02/2024 03:38:32 12/02/1912/02/2024 CBC WITH DIFFE RENTI AL/PL ATELE T RBC 4.94 x10e6 /uL 3.77-5 .28 normal Not Available [facility] ([facility]) [address] [place], [address], 12/02/2024 03:38:32 12/02/19 25 12/02/2024 CBC WITH DIFFE RENTI AL/PL ATELE T hemoglobin 14.3 g/dL 11.1-1 5.9 normal Not Available [facility] ([facility]) [address] [place], [address], 12/02/2024 03:38:32 12/02/1912/02/2024 CBC WITH DIFFE RENTI AL/PL ATELE T hematocrit 41.7 % 34.0-4 6.6 normal Not Available [facility] ([facility]) [address] [place], [address], 12/02/2024 03:38:32 12/02/19 25 12/02/2024 CBC WITH DIFFE RENTI AL/PL ATELE T MCV 84 fL 79-97 normal Not Available [facility] ([facility]) [address] [place], [address], 12/02/2024 03:38:32 04/11/20 25 12/02/2024 CBC WITH DIFFE RENTI AL/PL ATELE T MCH 28.9 pg 26.6-3 3.0 normal Not Available [facility] ([facility]) [address] [facility], [place], [address], 12/02/2024 03:38:32 12/02/19 25 12/02/2024 CBC WITH DIFFE RENTI AL/PL ATELE T MCHC 34.3 g/dL 31.5-3 5.7 normal Not Available [facility] ([facility]) [address] [facility], [place], [address], 12/02/2024 03:38:32 12/02/19 25 12/02/2024 CBC WITH DIFFE RENTI AL/PL ATELE T RDW 14.5 % 11.7-1 5.4 Not Available [facility] ([facility]) [address] [facility], [place], [address], 12/02/2024 03:38:32 12/02/19 25 12/02/2024 CBC WITH DIFFE RENTI AL/PL ATELE T platelets 171 x10e3 /uL 150-45 0 normal Not Available [facility] ([facility]) [address] [facility], [place], [address], 12/02/2024 03:38:32 12/02/19 25 12/02/2024 CBC WITH DIFFE RENTI AL/PL ATELE T neutrophils 72 % not estab. normal Not Available [facility] ([facility]) [address] [facility], [place], [address], 12/02/2024 03:38:32 12/02/19 25 12/02/2024 CBC WITH DIFFE RENTI AL/PL ATELE T lymphs 21 % not estab. normal Not Available [facility] ([facility]) [address] [place], [address], 12/02/2024 03:38:32 12/02/19 25 12/02/2024 CBC WITH DIFFE RENTI AL/PL ATELE T monocytes 6 % not estab. normal Not Available [facility] ([facility]) [address] [facility], [place], [address], 12/02/2024 03:38:32 12/02/19 25 12/02/2024 CBC WITH DIFFE RENTI AL/PL ATELE T eos 1 % not estab. normal Not Available [facility] ([facility]) [address] [facility], [place], [address], 12/02/2024 03:38:32 12/02/19 25 12/02/2024 CBC WITH DIFFE RENTI AL/PL ATELE T basos 0 % not estab. normal Not Available [facility] ([facility]) [address] [facility], [place], [address], 12/02/2024 03:38:32 12/02/19 25 12/02/2024 CBC WITH DIFFE RENTI AL/PL ATELE T immature cells SENIOR ADVISOR Not Available [facility] ([facility]) [address] [place], [address], 12/02/2024 03:38:32 12/02/19 25 12/02/2024 CBC WITH DIFFE RENTI AL/PL ATELE T neutrophils (absolute) 6.0 x10e3 /uL 1.4-7. 0 normal Not Available [facility] ([facility]) [address] [facility], [place], [address], 12/02/2024 03:38:32 12/02/19 25 12/02/2024 CBC WITH DIFFE RENTI AL/PL ATELE T lymphs (absolute) 1.8 x10e3 /uL 0.7-3. 1 normal Not Available [facility] ([facility]) [address] [place], [address], 12/02/2024 03:38:32 12/02/19 25 12/02/2024 CBC WITH DIFFE RENTI AL/PL ATELE T monocytes(ab solute) 0.5 x10e3 /uL 0.1-0. 9 normal Not Available [facility] ([facility]) [address] [place], [address], 12/02/2024 03:38:32 12/02/19 25 12/02/2024 CBC WITH DIFFE RENTI AL/PL ATELE T eos (absolute) 0.1 x10e3 /uL 0.0-0. 4 normal Not Available [facility] ([facility]) [address] [facility], [place], [address], 12/02/2024 03:38:32 12/02/19 25 12/02/2024 CBC WITH DIFFE RENTI AL/PL ATELE T baso (absolute) 0.0 x10e3 /uL 0.0-0. 2 normal Not Available [facility] ([facility]) [address] [place], [address], 12/02/2024 03:38:32 12/02/19 25 12/02/2024 CBC WITH DIFFE RENTI AL/PL ATELE T immature granulocytes 0 % not estab. Not Available [facility] ([facility]) [address] [place], [address], 12/02/2024 03:38:32 12/02/19 25 12/02/2024 CBC WITH DIFFE RENTI AL/PL ATELE T immature grans (abs) 0.0 x10e3 /uL 0.0-0. 1 Not Available [facility] ([facility]) [address] [place], [address], 12/02/2024 03:38:32 12/02/19 25 12/02/2024 CBC WITH DIFFE RENTI AL/PL ATELE T NRBC SENIOR ADVISOR Not Available [facility] ([facility]) [address] [place], [address], 12/02/2024 03:38:32 12/02/19 25 12/02/2024 CBC WITH DIFFE KLAUS AL/PL DIA T hematology comments: SENIOR ADVISOR Not Available [facility] ([facility]) [address] [facility], [place], [address], 12/02/2024 03:38:32 12/02/19 25 12/02/2024 COMP. METAB OLIC PANEL (14) glucose 96 mg/dL 70-99 normal Not Available [facility] ([facility]) [address] [facility], [place], [address], 12/02/2024 03:38:33 12/02/19 25 12/02/2024 COMP. METAB OLIC PANEL (14) BUN 5 mg/dL 6-20 below low normal Not Available [facility] ([facility]) [address] [facility], [place], [address], 12/02/2024 03:38:33 12/02/19 25 12/02/2024 COMP. METAB OLIC PANEL (14) creatinine 0.53 mg/dL 0.57-1 .00 below low normal Not Available [facility] ([facility]) [address] [place], [address], 12/02/2024 03:38:33 12/02/19 25 12/02/2024 COMP. METAB OLIC PANEL (14) eGFR 131 mL/mi n/1.7 3 >59 normal Not Available [facility] ([facility]) [address] [place], [address], 12/02/2024 03:38:33 12/02/19 25 12/02/2024 COMP. METAB OLIC PANEL (14) BUN/creatini ne ratio 9 9-23 normal Not Available [facility] ([facility]) [address] [place], [address], 12/02/2024 03:38:33 12/02/19 25 12/02/2024 COMP. METAB OLIC PANEL (14) sodium 136 mmol/ L 134-14 4 normal Not Available [facility] ([facility]) [address] [place], [address], 12/02/2024 03:38:33 12/02/19 25 12/02/2024 COMP. METAB OLIC PANEL (14) potassium 4.5 mmol/ L 3.5-5. 2 normal Not Available [facility] ([facility]) [address] [facility] [place], [address], 12/02/2024 03:38:33 12/02/19 25 12/02/2024 COMP. METAB OLIC PANEL (14) chloride 101 mmol/ L 96-106 normal Not Available [facility] ([facility]) [address] [facility] [place], [address], 12/02/2024 03:38:33 12/02/19 25 12/02/2024 COMP. METAB OLIC PANEL (14) carbon dioxide, total 20 mmol/ L 20-29 normal Not Available [facility] ([facility]) [address] [facility] [place], [address], 12/02/2024 03:38:33 12/02/19 25 12/02/2024 COMP. METAB OLIC PANEL (14) calcium 9.5 mg/dL 8.7-10 .2 normal Not Available [facility] ([facility]) [address] [facility] [place], [address], 12/02/2024 03:38:33 12/02/19 25 12/02/2024 COMP. METAB OLIC PANEL (14) protein, total 6.6 g/dL 6.0-8. 5 normal Not Available [facility] ([facility]) [address] [facility] [place], [address], 12/02/2024 03:38:33 12/02/19 25 12/02/2024 COMP. METAB OLIC PANEL (14) albumin 4.1 g/dL 4.0-5. 0 normal Not Available [facility] ([facility]) [address] [place], [address], 12/02/2024 03:38:33 12/02/19 25 12/02/2024 COMP. METAB OLIC PANEL (14) globulin, total 2.5 g/dL 1.5-4. 5 Not Available [facility] ([facility]) [address] [place], [address], 12/02/2024 03:38:33 12/02/19 25 12/02/2024 COMP. METAB OLIC PANEL (14) bilirubin, total 1.6 mg/dL 0.0-1. 2 above high normal Not Available [facility] ([facility]) [address] [place], [address], 12/02/2024 03:38:33 12/02/19 25 12/02/2024 COMP. METAB OLIC PANEL (14) alkaline phosphatase 83 IU/L 44-121 normal Not Available [facility] ([facility]) [address] [place], [address], 12/02/2024 03:38:33 12/02/19 25 12/02/2024 COMP. METAB OLIC PANEL (14) AST (SGOT) 46 IU/L 0-40 above high normal Not Available [facility] ([facility]) [address] [place], [address], 12/02/2024 03:38:33 12/02/19 25 12/02/2024 COMP. METAB OLIC PANEL (14) ALT (SGPT) 59 IU/L 0-32 above high normal Not Available [facility] ([facility]) [address] [place], [address], 12/02/2024 03:38:33 02/06/20 25 02/06/2025 FE+TI BC+FE R iron bind.cap.(TI BC) 357 ug/dL 250-45 0 normal Not Available [facility] ([facility]) [address] [place], [address], 02/16/2025 18:37:38 02/06/20 25 02/06/2025 FE+TI BC+FE R UIBC 292 ug/dL 131-42 5 normal Not Available [facility] ([facility]) [address] [facility], [place], [address], 02/16/2025 18:37:38 02/06/20 25 02/06/2025 FE+TI BC+FE R iron 65 ug/dL 27-159 normal Not Available [facility] ([facility]) [address] [facility], [place], [address], 02/16/2025 18:37:38 02/06/20 25 02/06/2025 FE+TI BC+FE R iron saturation 18 % 15-55 normal Not Available [facility] ([facility]) [address] [place], [address], 02/16/2025 18:37:38 02/06/20 25 02/06/2025 FE+TI BC+FE R ferritin 256 NG/mL 15-150 above high normal Not Available [facility] ([facility]) [address] [place], [address], 02/16/2025 18:37:38 02/06/20 25 02/06/2025 TSH+F REE T4 TSH 0.967 uIU/m L 0.450- 4.500 normal Not Available [facility] ([facility]) [address] [place], [address], 02/16/2025 18:37:39 02/06/20 25 02/06/2025 TSH+F REE T4 T4,free(dire ct) 0.82 NG/dL 0.82-1 .77 normal Not Available [facility] ([facility]) [address] [place], [address], 02/16/2025 18:37:39 02/06/20 25 02/06/2025 CBC WITH DIFFE RENTI AL/PL ATELE T WBC 6.1 x10e3 /uL 3.4-10 .8 normal Not Available [facility] ([facility]) [address] [place], [address], 02/16/2025 18:37:40 02/06/20 25 02/06/2025 CBC WITH DIFFE RENTI AL/PL ATELE T RBC 4.12 x10e6 /uL 3.77-5 .28 normal Not Available [facility] ([facility]) [address] [place], [address], 02/16/2025 18:37:40 02/06/20 25 02/06/2025 CBC WITH DIFFE RENTI AL/PL ATELE T hemoglobin 12.5 g/dL 11.1-1 5.9 normal Not Available [facility] ([facility]) [address] [place], [address], 02/16/2025 18:37:40 02/06/20 25 02/06/2025 CBC WITH DIFFE RENTI AL/PL ATELE T hematocrit 37.6 % 34.0-4 6.6 normal Not Available [facility] ([facility]) [address] [place], [address], 02/16/2025 18:37:40 02/06/20 25 02/06/2025 CBC WITH DIFFE RENTI AL/PL ATELE T MCV 91 fL 79-97 normal Not Available [facility] ([facility]) [address] [place], [address], 02/16/2025 18:37:40 02/06/20 25 02/06/2025 CBC WITH DIFFE RENTI AL/PL ATELE T MCH 30.3 pg 26.6-3 3.0 normal Not Available [facility] ([facility]) [address] [place], [address], 02/16/2025 18:37:40 02/06/20 25 02/06/2025 CBC WITH DIFFE RENTI AL/PL ATELE T MCHC 33.2 g/dL 31.5-3 5.7 normal Not Available [facility] ([facility]) [address] [facility], [place], [address], 02/16/2025 18:37:40 02/06/20 25 02/06/2025 CBC WITH DIFFE RENTI AL/PL ATELE T RDW 14.0 % 11.7-1 5.4 Not Available [facility] ([facility]) [address] [facility], [place], [address], 02/16/2025 18:37:40 02/06/20 25 02/06/2025 CBC WITH DIFFE RENTI AL/PL ATELE T platelets 230 x10e3 /uL 150-45 0 normal Not Available [facility] ([facility]) [address] [facility], [place], [address], 02/16/2025 18:37:40 02/06/20 25 02/06/2025 CBC WITH DIFFE RENTI AL/PL ATELE T neutrophils 67 % not estab. normal Not Available [facility] ([facility]) [address] [facility], [place], [address], 02/16/2025 18:37:40 02/06/20 25 02/06/2025 CBC WITH DIFFE RENTI AL/PL ATELE T lymphs 27 % not estab. normal Not Available [facility] ([facility]) [address] [facility], [place], [address], 02/16/2025 18:37:40 02/06/20 25 02/06/2025 CBC WITH DIFFE RENTI AL/PL ATELE T monocytes 5 % not estab. normal Not Available [facility] ([facility]) [address] [facility], [place], [address], 02/16/2025 18:37:40 02/06/20 25 02/06/2025 CBC WITH DIFFE RENTI AL/PL ATELE T eos 1 % not estab. normal Not Available [facility] ([facility]) [address] [facility], [place], [address], 02/16/2025 18:37:40 02/06/20 25 02/06/2025 CBC WITH DIFFE RENTI AL/PL ATELE T basos 0 % not estab. normal Not Available [facility] ([facility]) [address] [facility], [place], [address], 02/16/2025 18:37:40 02/06/20 25 02/06/2025 CBC WITH DIFFE RENTI AL/PL ATELE T immature cells SENIOR ADVISOR Not Available [facility] ([facility]) [address] [facility], [place], [address], 02/16/2025 18:37:40 02/06/20 25 02/06/2025 CBC WITH DIFFE RENTI AL/PL ATELE T neutrophils (absolute) 4.1 x10e3 /uL 1.4-7. 0 normal Not Available [facility] ([facility]) [address] [place], [address], 02/16/2025 18:37:40 02/06/20 25 02/06/2025 CBC WITH DIFFE RENTI AL/PL ATELE T lymphs (absolute) 1.7 x10e3 /uL 0.7-3. 1 normal Not Available [facility] ([facility]) [address] [place], [address], 02/16/2025 18:37:40 02/06/20 25 02/06/2025 CBC WITH DIFFE RENTI AL/PL ATELE T monocytes(ab solute) 0.3 x10e3 /uL 0.1-0. 9 normal Not Available [facility] ([facility]) [address] [place], [address], 02/16/2025 18:37:40 02/06/20 25 02/06/2025 CBC WITH DIFFE RENTI AL/PL ATELE T eos (absolute) 0.0 x10e3 /uL 0.0-0. 4 normal Not Available [facility] ([facility]) [address] [place], [address], 02/16/2025 18:37:40 02/06/20 25 02/06/2025 CBC WITH DIFFE RENTI AL/PL ATELE T baso (absolute) 0.0 x10e3 /uL 0.0-0. 2 normal Not Available [facility] ([facility]) [address] [place], [address], 02/16/2025 18:37:40 02/06/20 25 02/06/2025 CBC WITH DIFFE RENTI AL/PL ATELE T immature granulocytes 0 % not estab. Not Available [facility] ([facility]) [address] [place], [address], 02/16/2025 18:37:40 02/06/20 25 02/06/2025 CBC WITH DIFFE RENTI AL/PL ATELE T immature grans (abs) 0.0 x10e3 /uL 0.0-0. 1 Not Available [facility] ([facility]) [address] [place], [address], 02/16/2025 18:37:40 02/06/20 25 02/06/2025 CBC WITH DIFFE RENTI AL/PL ATELE T NRBC SENIOR ADVISOR Not Available [facility] ([facility]) [address] [place], [address], 02/16/2025 18:37:40 02/06/20 25 02/06/2025 CBC WITH DIFFE RENTI AL/PL ATELE T hematology comments: SENIOR ADVISOR Not Available [facility] ([facility]) [address] [place], [address], 02/16/2025 18:37:40 02/06/20 25 02/06/2025 COMP. METAB OLIC PANEL (14) glucose 89 mg/dL 70-99 normal Not Available [facility] ([facility]) [address] [place], [address], 02/16/2025 18:37:42 02/06/20 25 02/06/2025 COMP. METAB OLIC PANEL (14) BUN 7 mg/dL 6-20 normal Not Available [facility] ([facility]) [address] [place], [address], 02/16/2025 18:37:42 02/06/20 25 02/06/2025 COMP. METAB OLIC PANEL (14) creatinine 0.43 mg/dL 0.57-1 .00 below low normal Not Available [facility] ([facility]) [address] [place], [address], 02/16/2025 18:37:42 02/06/20 25 02/06/2025 COMP. METAB OLIC PANEL (14) eGFR 137 mL/mi n/1.7 3 >59 normal Not Available [facility] ([facility]) [address] [place], [address], 02/16/2025 18:37:42 02/06/20 25 02/06/2025 COMP. METAB OLIC PANEL (14) BUN/creatini ne ratio 16 9-23 normal Not Available [facility] ([facility]) [address] [place], [address], 02/16/2025 18:37:42 02/06/20 25 02/06/2025 COMP. METAB OLIC PANEL (14) sodium 136 mmol/ L 134-14 4 normal Not Available [facility] ([facility]) [address] [place], [address], 02/16/2025 18:37:42 02/06/20 25 02/06/2025 COMP. METAB OLIC PANEL (14) potassium 4.5 mmol/ L 3.5-5. 2 normal Not Available [facility] ([facility]) [address] [facility] [place], [address], 02/16/2025 18:37:42 02/06/20 25 02/06/2025 COMP. METAB OLIC PANEL (14) chloride 105 mmol/ L 96-106 normal Not Available [facility] ([facility]) [address] [place], [address], 02/16/2025 18:37:42 02/06/20 25 02/06/2025 COMP. METAB OLIC PANEL (14) carbon dioxide, total 17 mmol/ L 20-29 below low normal Not Available [facility] ([facility]) [address] [place], [address], 02/16/2025 18:37:42 02/06/20 25 02/06/2025 COMP. METAB OLIC PANEL (14) calcium 9.7 mg/dL 8.7-10 .2 normal Not Available [facility] ([facility]) [address] [place], [address], 02/16/2025 18:37:42 02/06/20 25 02/06/2025 COMP. METAB OLIC PANEL (14) protein, total 6.2 g/dL 6.0-8. 5 normal Not Available [facility] ([facility]) [address] [place], [address], 02/16/2025 18:37:42 02/06/20 25 02/06/2025 COMP. METAB OLIC PANEL (14) albumin 3.8 g/dL 4.0-5. 0 below low normal Not Available [facility] ([facility] [address] [facility] [place], [address], 02/16/2025 18:37:42 02/06/20 25 02/06/2025 COMP. METAB OLIC PANEL (14) globulin, total 2.4 g/dL 1.5-4. 5 Not Available [facility] ([facility]) [address] [place], [address], 02/16/2025 18:37:42 02/06/20 25 02/06/2025 COMP. METAB OLIC PANEL (14) bilirubin, total 0.5 mg/dL 0.0-1. 2 normal Not Available [facility] ([facility]) [address] [place], [address], 02/16/2025 18:37:42 02/06/20 25 02/06/2025 COMP. METAB OLIC PANEL (14) alkaline phosphatase 85 IU/L 44-121 normal Not Available [facility] ([facility]) [address] [place], [address], 02/16/2025 18:37:42 02/06/20 25 02/06/2025 COMP. METAB OLIC PANEL (14) AST (SGOT) 22 IU/L 0-40 normal Not Available [facility] ([facility]) [address] [place], [address], 02/16/2025 18:37:42 02/06/20 25 02/06/2025 COMP. METAB OLIC PANEL (14) ALT (SGPT) 22 IU/L 0-32 normal Not Available [facility] ([facility]) [address] [place], [address], 02/16/2025 18:37:42 02/06/20 25 02/16/2025 VITAM IN E vitamin E(alpha tocopherol) 13.7 mg/L 5.9-19 .4 Not Available [facility] ([facility]) [address] [place], [address], 02/16/2025 18:37:43 02/06/20 25 02/16/2025 VITAM IN [...] in E defic ient. Not Available [facility] ([facility]) [address] [facility], [place], [address], 02/16/2025 18:37:43 02/06/20 25 02/06/2025 FOLAT E (FOLI C ACID) , SERUM folate (folic acid), serum 4.2 NG/mL >3.0 normal A serum folat e matt ntrat ion of less than 3.1 ng/mL is consi dered to repre sent clini abby defic iency . Not Available [facility] ([facility]) [address] [facility], [place], [address], 02/16/2025 18:37:44 02/06/20 25 02/16/2025 VITAM IN [...] Drug Admin istra tion. Not Available [facility] ([facility]) [address] [facility], [place], [address], 02/16/2025 18:37:45 02/06/20 25 02/06/2025 VITAM IN [...] um and D. Lucretia pleitez [place]: [facility] . 2. Reinaldo moreno [place], Eileen mccann [place], David off-F errar i LILLY, et al. Evalu ation , treat ment, and preve ntion of vitam in D defic iency : an Endoc rine Socie ty clini abby pract ice guide line. JCEM. 2010; 96(7) :1911 -30. Not Available [facility] ([facility]) [address] [place], [address], 02/16/2025 18:37:46 02/06/20 25 02/08/2025 VITAM IN B1 (THIA MINE) , BLOOD vit. B1, whole blood 85.2 nmol/ L 66.5-2 00.0 Not Available [facility] ([facility]) [address] [place], [address], 02/16/2025 18:37:47 02/06/20 25 02/08/2025 METHY LMALO JAREK ACID, SERUM methylmaloni c acid, serum 79 nmol/ L 0-378 Not Available [facility] ([facility]) [address] [place], [address], 02/16/2025 18:37:48 02/06/20 25 02/09/2025 COPPE R, SERUM OR PLASM A copper, serum or plasma 188 ug/dL 80-158 above high normal Detec tion Limit = 5 Not Available [facility] ([facility]) [address] [place], [address], 02/16/2025 18:37:49 02/06/20 25 02/09/2025 ZINC, PLASM A OR SERUM zinc, plasma or serum 46 ug/dL 44-115 normal Detec tion Limit = 5 Not Available [facility] ([facility]) [address] [facility], [place], [address], 02/16/2025 18:37:50 02/06/20 25 02/06/2025 PREAL BUMIN prealbumin 16 mg/dL 14-35 Not Available [facility] ([facility]) [address] [facility], [place], [address], 02/16/2025 18:37:51 02/06/20 25 02/07/2025 SELEN IUM, BLOOD selenium, blood 125 ug/L 100-34 0 Detec tion Limit = 10 Not Available [facility] ([facility]) [address] [facility], [place], [address], 02/16/2025 18:37:52 Result Notes None recorded. Problems Name Problem SNOMED Code Status Onset Date Resolution Date Notes Provider Name and Address Organization Details Recorded Time [facility] [id number] Active 2023 Raquel Guillen, [address], [place], [address] , [facility] & [place] 4 15:38:11 Essential hypertensi on 46733368 Active 2023 RON Azar [address] , [place], [address] , [facility] & [place] 4 12:30:28 Obesity 985170020 Active 2023 RON Azar [address] , [place], [address] , [place] 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 RON Azar [address] , [place], [address] , [place] 5 08:04:37 Contact dermatitis 59532238 Active 2024 RON Azar [address] , [place], [address] , [place] 5 10:32:01 Nausea 546831669 Active 2024 RON Azar [address] , [place], [address] , [place] [facility] 5 09:06:20 Nausea and vomiting 14368047 Active 2024 RON Azar [address] , [place], [address] , [place] 5 10:19:41 Bilious vomiting 46688029 Active 2024 RON Azar [address] , [place], [address] , [place] 5 09:06:37 Mild dehydratio n 7865019086369 Active 2024 RON Azar [address], [place], [address] , [place] [facility] [place] 5 09:09:44 Intentiona l weight loss 907965530 Active [address], [place], [address] , [place] [facility] [facility] [place] 5 09:06:38 Body mass index 40+ - severely obese 412188138 Active 2024 RON Azar [address], [place], [address] , [place] 5 09:07:05 Severe obesity 5234728288798 4 Active 2024 RON Azar [address], [place], [address] , [place] 5 09:07:24 Nutritiona l deficiency state 04704562 Active 2024 RON Azar [address], [place], [address] , [place] 5 10:04:26 Epigastric pain 88574737 Active 2024 RON Azar [address], [place], [address] , [place] 5 10:16:35 Gestation period, 13 weeks 87305293 Active 2024 RON Azar [address], [place], [address] , [place] 5 10:26:24 Gestation period, 19 weeks 59635082 Active 2024 RON Azar [address], [place], [address] , [place] 5 13:38:05 Protein level - finding 186403834 Active 2024 RON Azar [address], [place], [address] , [place] 5 13:39:22 Vitamin D deficiency 88460338 Active 2024 RON Azar [address], [place], [address] , [place] 5 13:40:16 Heartburn 55296123 Active 2024 RON Azar [address], [place], [address] , [facility] & [place] 11:23:29 Problem Notes None recorded. Procedures Surgical History Date Name Laterality Status Provider Name and Address Organization Details Recorded Time 10/16/19 25 procedure on duodenum completed Parris Torres [facility] & [place] 11/09/2024 08:47:34 12/09/19 24 EMG/ Nerve Conduction Study completed Raquel Guillen DO [address], [place], [address], [facility] & [place] 12/09/2023 15:38:04 Cholecystectomy completed RON Azar [address], [place], [address], [facility] & [place] 07/04/2024 12:57:53 extraction of wisdom tooth completed Parris Torres [facility] & [place] 07/03/2024 15:07:44 Tonsillectomy completed Parris Torres [facility] & [place] 07/03/2024 15:07:52 procedure on ganglion cyst completed Stephanie Castro [facility] & [place] 10/04/2024 07:53:08 Imaging Results None recorded. Procedure [...] cm 97.1 [degF] 91 /min 40.5 kg/m2 482435. 35 g 141/100 mm[Hg] Stephanie Castro [facility] 5 09:49:04 Date Recorded Body height Body mass index (BMI) Body weight Body temperature Heart rate Systolic And Diastolic Provider Name and Address Organization Details Last Updated DateTime 5 170.18 cm 38.1 kg/m2 287510. 66 g 97.9 [degF] 99 /min 134/89 mm[Hg] Parris Torres [facility] 5 13:17:54 Date Recorded Body height Body mass index (BMI) Body weight Body temperature Oxygen saturation Oxygen saturation in Arterial blood by Pulse oximetry Heart rate Systolic And Diastolic Provider Name and Address Organization Details Last Updated DateTime 5 170.18 cm 35.9 kg/m2 685496. 45 g 97.4 [degF] 99 % 99 % 80 /min 112/78 mm[Hg] Flora Becerril [facility] & [place] 5 11:14:40 Social History Question Answer Notes LastModified by OrganizKey Ring Details LastModified Time Tobacco Smoking Status Never Smoker Parris Torres [facility], [facility] & [place] 07/03/2024 15:12:10 What Is Your Level Of Caffeine Consumption? Occasional [email or web address] Information not available 07/04/2024 Sex: Female Functional Status Question Answer Note LastModified by OrganizKey Ring Details LastModified Time Do you use any illicit or recreational drugs? No [email or web address] Information not available 07/03/2024 What is your level of alcohol consumption? Occasional [email or web address] Information not available 07/03/2024 Mental Status None recorded. Family History Relationship Description Onset Age of this Age Resolved Age Notes LastModified by Organization Details LastModified Time Father Hypertensive disorder Not available 06/2024 15:12:25 Father Hypercholest erolemia [email or web address] Not available 06/2024 15:12:51 Mother Hypertensive disorder Not available 06/2024 15:12:25 Mother Hypercholest erolemia [email or web address] Not available 06/2024 15:12:51 Mother Asthma [email or web address] Not availabl e 07/04/2024 13:49:15 Mother Chronic obstructive pulmonary disease [email or web address] Not available 06/2024 15:13:21 Maternal Grandmother Hypertensive disorder [email or web address] Not available 06/2024 15:12:25 Maternal Grandmother Chronic obstructive pulmonary disease [email or web address] Not available 06/2024 15:13:21 Maternal Grandfather Malignant neoplasm of lung [email or web address] Not available 06/23 13:49:15 Brother Asthma [email or web address] Not availab le 07/04/2024 13:49:15 Sister Asthma [email or web address] Not availabl e 07/04/2024 13:49:15 Medical History [...] ICD10 Code Diagnosis IMO Codes Diagnosis Note [id number] Raquel Guillen, ZZ [facility] Neurology [address] [facility] [address] [place] [address] 12/09/2023 15:31:14 12/09/2023 16:01:57 Paresthesia of upper limb 58923920 R20.2 [id number] RON Azar [facility] Bariatric s and Adv Surg [address] [place] [address] [address] [place] [address] 07/04/2024 11:29:18 07/04/2024 14:10:15 Obesity 146860443 E66.9 The patient will be scheduled for [...] completed Disorder o f function of stomach 279569097 K31.89 Pre-surger y evaluation 012279661 Z01.818 Obesity screening 406159 005 Z13.89 Essential hypertension 39019113 I10 Impaired g lucose tolerance 7403458 R73.[id number] [facility] Bariatric s and Adv Surg [address] [facility] [address] [place] [address] 07/04/2024 13:49:08 07/04/2024 14:22:02 Dietary management surveillance 747412368 Z71.3 Completed nutrition evaluation and education with [...] to patient based on recommende d surgery. [id number] Forest Mena MD [facility] [address] [facility] [address] [place] [address] 08/01/2024 09:01:56 08/01/2024 09:49:38 Preoperative cardiovascular examination 846685640 Z01.810 23-year-ol d female sent for preoperati ve cardiovasc ular evaluation for weight loss surgery. She is physically active asymptomat ic can do more than 6 METs with no limitation s. EKG normal sinus rhythm. She can proceed with the surgery as low risk patient for moderate risk procedure from the cardiovasc ular standpoint . Obesity 176028877 E66.9 obesity body mass index 49.8. For weight loss surgery. Recommend sleep apnea evaluation . Essential hypertension 76730263 I10 hypertensi on on hydrochlor othiazide. Recommend switching to beta mathew because she is in the childbeari ng age. Patient declined at this time. She understand s the possible side effects of hydrochlor othiazide. [id number] [address] [facility] Bariatric s and Adv Surg [address] [facility] [address] [place] [address] 08/08/2024 12:37:07 08/08/2024 13:20:53 Dietary management surveillance 167597161 Z71.3 [id number] KALI HAMILTON MD [facility] Bariatric s and Adv Surg [address] [facility] [address] [place] [address] 10/04/2024 07:39:52 10/04/2024 14:13:26 Morbid obesity 236060789 E66.01 Pre-surger y evaluation 282204299 Z01.818 Postoperative pain 82888 9007 G89.18 pt will continue pregabalin post operativel y Essential hypertension 46894652 I10 Impaired g lucose tolerance 7272580 R73.03 [id number] RON Azar [facility] Bariatric s and Adv Surg [address] [facility] [address] [place] [address] 10/24/2024 07:55:40 10/24/2024 10:33:45 History of gastrectomy 098716453 Z90.3 Encouraged patient to continue focus on intake of adequate protein and hydration. Advised minimum 70 g of protein and 800 calories. Patient is to continue incentive spirometer for another 5-7 days Encouraged ambulation Patient is to start bariatric approved vitamin Follow up 3 weeks Contact dermatitis 81623 004 L25.9 Likely from surgical glue. Patient advised to keep area clean. She may apply Benadryl cream or calamine lotion. Advised she take Zyrtec q.a.m. and Benadryl q.p.m.. Advised she avoid scratching these areas. She is report any worsening symptoms. [id number] RON Azar [facility] Bariatric s and Adv Surg [address] [place] [address] [address] [place] [address] 11/09/2024 08:34:40 11/09/2024 14:27:44 Nausea and vomiting 37634411 R11.2 3936513760 Long discussion today regarding adherence to advise [...] UGI to further evaluate - pt request [facility].Alexander bowen is advised to call or go to the ED for any acute worsening of abdominal symptoms.Alexander bowen is to keep scheduled follow-up 11/17/2024 Mild dehydration 9685290 119 108 E86.0 063596 Patient will have to a L normal saline IV rehydratio n today in office. History of gastrectomy 278265656 Z90.3 [id number] s/p TORI-s 10/16/24 [id number] RON Azar [facility] Bariatric s and Adv Surg [address] [place], [place] [address] 11/17/2024 08:51:00 11/17/2024 09:41:49 Disorder of function of stomach 309235600 K31.89 Long discussion with patient regarding fatigue [...] call for any worsening symptoms Essential hypertension 24042742 I10 Stop monitor and discussed with PCP Impaired g lucose tolerance 6241875 R73.03 History of gastrectomy 990992698 Z90.3 We discussed diet and the importance [...] to correct any vitamin deficienci es. At [facility] risk of nutritional deficit 225386968 Z91.89 Severe obesity 085082513 1 9104 E66.813 E66.01 Z68.41 1345268148 [id number] [address] [facility] Bariatric s and Adv Surg [address] [facility] [address] [place] [place], [place] [address] 11/17/2024 09:37:00 11/17/2024 10:29:59 Diet education 01819474 Z71.3 158139 [id number] RON Azar [facility] Bariatric s and Adv Surg [address] [place] [address] 12/01/2024 09:40:04 12/01/2024 10:22:02 Nausea and vomiting 18813812 R11.2 6675055055 Long discussion with patient regarding fatigue and [...] has been resulted Nutritiona l deficiency state 81503072 E63.9 84893 Encouraged patient see focus on p.o. intake. Advised she continue small frequent sips of protein drinks. History of gastrectomy 173972863 Z90.3 s/p Tori-s 10/16/24 with continued struggles including nausea vomiting p.o. intake.Carmen thorne had upper GIPatient will be scheduled for upper endoscopy for further evaluation Epigastric pain 43795354 R10.13 21096 Advised patient to continue omeprazole . We [...] atient is advised to go to this [place] ED for any acute worsening symptoms [id number] [address] [facility] Bariatric s and Adv Surg [address] [facility] [address] [place] [address] 12/27/2024 09:45:05 12/27/2024 11:07:46 Diet education 66423375 Z71.3 806014 [id number] RON Azar [facility] Bariatric s and Adv Surg [address] [facility] [address] [place] [address] 12/27/2024 09:47:12 12/27/2024 12:24:19 Gestation period, 13 weeks 61772751 Z3A.13 [id number] Pt seen with Dr Guillen today.Advi sed to continue vitamins. Next labs due January 2025Pt has appt with rug weaver today to discuss caloric need. Advise minimal 3483-3986 calories daily and 90 g proteinPt has high school sports coach appt today in [place] to establish carePt given copy of recent labs to share with OB History of gastrectomy 607092665 Z90.3 [id number] s/p Tori-s 10/16/24Fol lowup with labs January 2025 [id number] RON Azar [facility] Bariatric s and Adv Surg [address] [facility] [address] [place] [address] 02/05/2025 13:13:06 02/05/2025 13:59:10 Gestation period, 19 weeks 97208905 Z3A.19 [id number] is progressin g well. Patient has a follow-up with obstetrici an on 02/07/2025 We are drawing labs today and we shared these with her obstetrici an. Nausea 274312765 R11.0 46070313 Patient has prescripti on of Zofran. She is to use this as needed. Nutritiona l assessment 024482714 Z00.8 046353 Encouraged patient track calories and protein. Advised 12-1500 calories and 80 g of protein daily.Evita ent declines dietitian visit todayPatie nt is to continue vitamin supplement ation. We are checking bariatric vitamin panel will contact patient to correct any deficienci es History of gastrectomy 034384872 Z90.3 Advised qid intake 50% protein 0765-8158 calories/d y less than 100 carbs/dy Patient is status post bariatric surgery and at increased risk for vitamin deficienci es and malnutriti on. Bariatric vitamin panel ordered today. Patient will be contacted to correct any vitamin deficienci es. [facility] 273363504 Z91.89 Protein le eugene - finding 117100326 R79.89 076595 Vitamin D deficiency 347 83663 E55.9 61935 [id number] RON Azar [facility] Bariatric s and Adv Surg [address] [facility] [address] [place] [address] 05/11/2025 11:05:40 05/11/2025 11:31:29 Heartburn 52561500 R12 16468 heartburn is to be expected with . Patient is to continue Tums as needed. She is to call for any worsening heartburn Normal 1868032 2 Z34.93 [id number] patient is now 32 weeks gravid. she is to continue to follow up with her obstetrici an.Discuss ed healthy nutrition to support . Encouraged patient to continue focus on protein fruits and vegetables . Small frequent meals Advised.Ron benjamin is to meet with our dietitian today. History of gastrectomy 509742770 Z90.3 409240 Patient is status post bariatric surgery and at increased risk for vitamin deficienci es and malnutriti on. Patient is to continue vitamin supplement ation. We will recheck vitamin levels at next office visit [id number] [facility] Bariatric s and Adv Surg [address] [facility] [address] [place] [address] 05/11/2025 11:30:41 05/11/2025 12:10:39 Diet education 73438544 Z71.3 [id number] Health Concerns Section Related Observation LastModified by Organization Detai ls LastModified Time None Recorded Concern Status LastModified by Organization Details LastModified Time None Recorded Advance Directives Directive None Recorded Payers Insurance Date Sequence Insurance Name Policy Number Policy Sanchez Covered Member ID Sanchez Member ID Guarantor Name 06/21/2024 1 [facility] [place] Penelope Christina [id number] Penelope Christina 11/06/2024 [facility] COMM[place] - [id number] Penelope Christina [id number] Penelope Christina 06/21/2024 2 [facility] ([place] [id number] 1 Penelope Christina [id number] Penelope Christina 08/01/2024 1 [facility] Penelope Christina [id number] Penelope Christina 05/14/2025 1 [facility] [place] ([place] - [place]) [facility] Penelope Christina [id number] Penelope Christina Notes Date Note Type Note [...] Tori-s 10/16/ UGI (Read as [facility]) No stricture identified no hiatal [...] to return to work. 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 [place] 12/27/2024 10:31:49 12/27/2024 text/html RDN met w/ [...] housing assistance ISRAEL HERN[address]Z, RD [address] [facility], [place], [address], [facility] - NT [facility] & [place] 12/27/2024 11:07:36 02/05/2025 text/html ROS as noted [...] she is doing well. She states her trauma director has her this the subchorionic hematoma is [...] Tori-s 10/16/ UGI (Read as [facility]) No stricture identified no hiatal [...] to return to work. 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 OB is Dr Faye Hartmann. Patient presents the office today for routine follow-up status post bariatric surgery.Pt is now 32 wks gravid. . She is having baby boy. she states everything is going well. Her trauma director seems to be happy with things. She [...] states she had recent labs with her trauma director approximately 2 weeks ago and they were [...] she is doing well. She states her trauma director has her this the subchorionic hematoma is [...] to take medication during . RON Azar [address], [place], [address], [facility] - [place] & [place] 05/11/2025 12:11:51 05/11/2025 text/html RDN met w/ pt for f/up s/p TORI-S. Pt is now 32 weeks . 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 daily kcal intake: 8960-3460 Est. daily protein intake: 70-90 Est. daily fluid intake: 50+ oz Meal Frequency/Pattern: eating almost every hour and doing protein focusedprotein shakes in the morning, protein spaghetti, eggs, adding in more beans, tuna, oikos drinks Drinks: body armor water Foods Not Tolerated: none noted Additional notes/concerns: Able to get food stamps and getting WIC, [employer], housing assistance ISRAEL HERNÁNDEZ, [address], [place], [address], [facility] - [place] & [place] 05/11/2025 11:50:26 OBGyn Episode No OBEpisode recorded.
--- OUTSIDE RECORDS SUMMARY | 2025-05-29 01:42 | XMS_ITS | Clinical Summary ---
Author Organization [facility] Address [address], [address] [place] [address] Care Team Providers Care Skin Fitter Name Role Phone [facility] Primary Care Provider Unav ailable Allergies No [...] Plan of Treatment Not on file Insurance [facility] [place] Care Teams Skin Fitter Relationship Specialty Start Date End Date [facility] PCP - General 07/29/21
--- OUTSIDE RECORDS SUMMARY | 2025-05-29 01:42 | XMS_ITS | Clinical Summary ---
Author Organization [facility] Address [address] [facility] [facility] [address] [place] [address] Care Team Providers Care Roasterman Name Role Phone Wilmer Niya Ellis NP [...] to complete this topic Insurance [place] MEDICA[place] [facility] Care Teams Roasterman Relationship Specialty Start Date End Date Niya Guillen NP [address] [place] [address], [address] [place] [address] PCP - General Family Medicine 03/31/22
--- OUTSIDE RECORDS SUMMARY | 2025-05-29 01:42 | XMS_ITS | Encounter Summary ---
Author Organization [facility] Address [facility] [address] [place] [address] Phone Care Team Providers Care Performance Solutions Specialist Name Role Phone Karishma Torres MD Primary Care Provider +1- [phone] Nola Dowling MD Primary Care Provider Eben Ball MD Primary Care Provide r Pcp, Nagi HERNANDEZ Primary Care Provider Encounter Details Date Type Department Care Team (Late st Contact Info) Description 11/04/2020 E-Visit [facility] [address] [place], [place] [address] [address] [place] [address] [place] [id number] [place] [address] RE: RE: Other Topic (See message) Social History Tobacco Use Types Packs/Day Years Used Date Smoking Tobacco: Never Smokeless Tobacco: Never Alcohol Use Standard Drinks/Week Comments Yes 0 (1 standard drink = 0.6 oz pur e alcohol) smirnoff ice twice per year [place] Depression Scale Answer Date Recorded [place] Depression Scale Total 4 12/20/2019 The thought [...] on filedocumented in this encounter Care Teams Performance Solutions Specialist Relationship Specialty Start Date End Date Karishma Torres MD PCP - General Family Medicine 03/19/20 02/19/21 Nola Dowling MD PCP - General Family Medicine 02/20/21 02/21/24 Eben Ball MD PCP - General Family Medicine 02/22/24 02/25/25 Pcp, MD Nagi No Address [place], [place] PCP - General Internal Medicine 02/26/25 documented as of this encounter
--- OUTSIDE RECORDS SUMMARY | 2025-05-29 01:42 | XMS_ITS | Encounter Summary ---
Author Organization [facility] Address [facility] [place] [address] Phone Care Team Providers Care Aqueduct And Reservoir Keeper Name Role Phone Karishma Torres MD Primary Care Provider +1- [phone] Nola Dowling MD Primary Care Provider Eben Ball MD Primary Care Provide r Pcp, Nagi HERNANDEZ Primary Care Provider Encounter Details Date Type Department Care Team (Late st Contact Info) Description 07/27/[address] [address] Morgan Samaniego MD [address] [place], [place] [address] [id number] [place] [address] Social History Tobacco Use Types [...] documented as of this encounter Care Teams Aqueduct And Reservoir Keeper Relationship Specialty Start Date End Date Karishma Torres MD PCP - General Family Medicine 03/19/20 02/19/21 Nola Dowling MD PCP - General Family Medicine 02/20/21 02/21/24 Eben Ball MD PCP - General Family Medicine 02/22/24 02/25/25 PcpNagi MD No Address [place], [place] PCP - General Internal Medicine 02/26/25 documented as of this encounter
--- OUTSIDE RECORDS SUMMARY | 2025-05-29 01:42 | XMS_ITS | Encounter Summary ---
Author Organization [employer] [facility] TP P Address [facility] [place] [address] Phone Care Team Providers Care Gas And Oil Servicer Name Role Phone Karishma Torres MD Primary Care Provider [phone]- [phone] Nola Dowling MD Primary Care Provider Eben Ball MD Primary Care Provide r PcpNagi MD Primary Care Provider [phone] Encounter Details Date Type Department Care Team (Late st Contact Info) Description 04/19/2019 OB Documents TH Care Program [address] [place] [address] [phone] Clinic-[facility], MD allison [facility] [place] [address] Social History Tobacco Use Types Packs/Day Years [...] documented as of this encounter Care Teams Gas And Oil Servicer Relationship Specialty Start Date End Date Karishma Torres MD PCP - General Family Medicine 03/19/20 02/19/21 Nola Dowling MD PCP - General Family Medicine 02/20/21 02/21/24 Eben Ball MD PCP - General Family Medicine 02/22/24 02/25/25 PcpNagi MD No Address [place], [place] PCP - General Internal Medicine 02/26/25 documented as of this encounter
--- OUTSIDE RECORDS SUMMARY | 2025-05-29 01:42 | XMS_ITS | Clinical Summary ---
Author Organization [facility] Address [address] [place] [address] Phone Care Team Providers Care Ship Pilot Name Role Phone Pcp, None MD Primary Care Provider [phone] Allergies No known active allergies Medications Blood Pressure Monitoring (BLOOD PRESSURE MONITOR/L CUFF) [facility] Check blood pressure three times daily. 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 TRACHOMATIS BY AMP RNA Not Detected Not Detected [facility] 2 N. GONORRHOEAE BY AMP RNA Not Detected Not Detected [facility] 2 Comment: (NOTE) Testing methodology is shingle packer mediated amplification (TMA) using the Aptima Combo 2 assay from [employer]. A negative result does not completely rule [...] methodology is available upon request. Tested at: [facility], [address] [place] [address] Urine specimen (specimen) URINE SPECIMEN / Unknown 10/09/2021 2:39 PM EST 10/09/2021 8:49 PM EST us Josué Silva Jr., MD BODY FLUIDS AND STOOLS ORDERABLES Final Result [facility] [address] [place] [id number] [place] [address] 2 * (ABNORMAL) CYTOLOGY HOTEL SERVICE SUPERVISOR (01/25/2020 11:33 AM EDT) CYTOLOGY-HOTEL SERVICE SUPERVISOR CYTOLOGY GYNECOLOGICAL REPORT Name: PENELOPE MERRITT#: [id number] Case #: [id number] Final Cytologic Diagnosis A. Cervical/Endocervic al thinprep pap: Adequacy: Satisfactory for evaluation, endocervical transformation zone component present. Interpretation: Epithelial cell abnormality: Low-grade squamous intraepithelial lesion. This specimen has been analyzed by the ThinPrep Imaging System ([employer].), an automated imaging and review system, which assists the residential collections and/or pathologist in evaluation of cells on Thinprep Pap tests. Flavia Up Electronically Signed Out By Diana Guillen MD Source of Specimen(s) A: Cervical/Endocervic al thinprep pap Clinical History Date of Last Menstrual Period: 01/03/[address] [facility], [address] [place] [address] [facility] Non-Formatted Report (A) [facility] 01/25/2020 11:3 3 AM EDT 01/26/2020 3:41 PM EDT Gordo Trejo MD PATHOLOGY/CYTOLOGY ORDERAB LES Final Result [facility] [address] [place], [place] [id number] from Last 3 Months or Most Recently Relevant to Health Maintenance Advance Directives * Full Code (Latest Code Status on File) Date Activated Date Inactivated Comments 11/23/2019 12:21 AM 11/24/2019 2:14 PM * Full Code Date Activated Date Inactivated Comments 11/22/2019 10:21 AM 11/23/2019 12:20 AM Care Teams Ship Pilot Relationship Specialty Start Date End Date Pcp, MD Nagi No Address [place], [place] PCP - General Internal Medicine 02/26/25
--- OUTSIDE RECORDS SUMMARY | 2025-05-29 01:42 | XMS_ITS | Encounter Summary ---
Author Organization [facility] TP P Address [facility] [place] [address] Phone Care Team Providers Care Distribution Estimator Name Role Phone Karishma Torres MD Primary Care Provider [phone] Nola Dowling MD Primary Care Provider Eben Ball MD Primary Care Provide r Pcp, Nagi [place] Primary Care Provider Encounter Details Date Type Department Care Team (Late st Contact Info) Description 07/26/[address] [address] Morgan Samaniego MD [address] [place] [address] [address] [place] [address] Social History Tobacco Use Types [...] documented as of this encounter Care Teams Distribution Estimator Relationship Specialty Start Date End Date Karishma Torres MD PCP - General Family Medicine 03/19/20 02/19/21 Nola Dowling MD PCP - General Family Medicine 02/20/21 02/21/24 Eben Ball MD PCP - General Family Medicine 02/22/24 02/25/25 PcpNagi MD No Address [place], [place] PCP - General Internal Medicine 02/26/25 documented as of this encounter
--- OUTSIDE RECORDS SUMMARY | 2025-05-29 01:42 | XMS_ITS | Encounter Summary ---
Author Organization [facility] SBO [facility] TP P Address [facility] [place] [address] Phone Care Team Providers Care Crozer Name Role Phone Karishma Torres MD Primary Care Provider [phone] Nola Dowling MD Primary Care Provider Eben Ball MD Primary Care Provide r PcpNagi MD Primary Care Provider [phone] Encounter Details Date Type Department Care Team (Late st Contact Info) Description 11/22/2019 OB Documents TH Care Program [address] [place] [phone] [facility] [place] [address] Social History Tobacco Use Types Packs/Day Years [...] documented as of this encounter Care Teams Crozer Relationship Specialty Start Date End Date Karishma Torres MD PCP - General Family Medicine 03/19/20 02/19/21 Nola Dowling MD PCP - General Family Medicine 02/20/21 02/21/24 Eben Ball MD PCP - General Family Medicine 02/22/24 02/25/25 Nagi Rodriguez MD No Address [place], [place] PCP - General Internal Medicine 02/26/25 documented as of this encounter
--- OUTSIDE RECORDS SUMMARY | 2025-05-29 01:42 | XMS_ITS | Continuity of Care Document ---
Author Organization [facility] Address [address] [place] [address] Care Team Providers Care Network Relations Consultant Name Role Phone KARLOS CHESTER Primary Care [...] Recorded Time Paresthesi a of upper limb 05003678 Active 2023 Raquel Guillen DO [address] , [place], [address] , [facility] & [place] 4 15:38:11 Essential hypertensi on 97080930 Active 2023 RON Azar [address] , [place], [address] , [facility] & [place] 4 12:30:28 Obesity 534449949 Active 2023 RON Azar [address], [place], [address] , [facility] [place] 4 12:30:50 Disorder of function of stomach 412717121 Active 2023 RON Azar [address], [place], [address] , [place] [facility] [place] [facility] [place] 4 12:30:50 Impaired glucose tolerance 3941657 Active 2023 RON Azar [address], [place], [address] , [place] [facility] [place] [facility] [place] 4 12:31:02 Postoperat nicholas pain 477338909 Active 2024 RON Azar [address], [place], [address] , [place] [facility] [place] [facility] [place] 5 08:04:37 Contact dermatitis 74480195 Active 2024 RON Azar [address], [place], [address] , [place] [facility] [place] [facility] [place] 5 10:32:01 Nausea 342129318 Active 2024 RON Azar [address] , [place], [address] , [place] [facility] [place] [facility] [place] 5 09:06:20 Nausea and vomiting 29530145 Active 2024 RON Azar [address], [place], [address] , [place] [facility] [place] [facility] [place] 5 10:19:41 Bilious vomiting 16029142 Active 2024 RON Azar [address], [place], [address] , [place] [facility] [place] [facility] [place] 5 09:06:37 Mild dehydratio n 4082415857709 Active 2024 RON Azar [address], [place], [address] , [place] [facility] [place] [facility] [place] 5 09:09:44 Intentiona l weight loss 826880845 Active 2024 RON Azar [address], [place], [address] , [place] [facility] [place] [facility] [place] 5 09:06:38 Body mass index 40+ - severely obese 741092274 Active 2024 RON Azar [address], [place], [address] , [place] [facility] [place] [facility] [place] 5 09:07:05 Severe obesity 5498345873766 4 Active 2024 RON Azar [address], [place], [address] , [place] [facility] [place] [facility] [place] 5 09:07:24 Nutritiona l deficiency state 69965765 Active 2024 RON Azar [address], [place], [address] , [place] [facility] [place] [facility] [place] 5 10:04:26 Epigastric pain 10518372 Active 2024 RON Azar [address], [place], [address] , [place] [facility] & [place] 5 10:16:35 Gestation period, 13 weeks 21254951 Active 2024 RON Azar [address], [place], [address] , [place] [facility] [place] [facility] [place] 5 10:26:24 Gestation period, 19 weeks 00980879 Active 2024 RON Azar [address], [place], [address] , [place] [facility] & [place] 5 13:38:05 Protein level - finding 990944390 Active 2024 RON Azar [address], [place], [address] , [place] [facility] & [place] 5 13:39:22 Vitamin D deficiency 57467872 Active 2024 RON Azar [address], [place], [address] , [facility] & [place] 13:40:16 Heartburn 04698528 Active 2024 RON Azar [address] , [place], [address] , [facility] & [place] 11:23:29 Problem Notes None recorded. Procedures Surgical History Date Name Laterality Status Provider Name and Address Organization Details Recorded Time 10/16/19 25 procedure on duodenum completed Parris Torres [facility] & [place] 11/09/2024 08:47:34 12/09/19 24 EMG/ Nerve Conduction Study completed Raquel Guillen DO [address], [place], [address], [facility] & [place] 12/09/2023 15:38:04 Cholecystectomy completed RON Azar [address], [place], [address], [facility] & [place] 07/04/2024 12:57:53 extraction of wisdom tooth completed Parris Torres [facility] & [place] 07/03/2024 15:07:44 Tonsillectomy completed Parris Torres [facility] & [place] 07/03/2024 15:07:52 procedure on ganglion cyst completed Stephanie Castro [facility] & [place] 10/04/2024 07:53:08 Imaging Results None [...] completed Not Available Not Available Not Available [facility] [place] ODT 75 mg disintegrat ing tablet 12/27 completed Not Available Not Available Not Available Vitals Date Recorded Body height Body mass index (BMI) Body weight Body temperature Oxygen saturation Oxygen saturation in Arterial blood by Pulse oximetry Heart rate Systolic And Diastolic Provider Name and Address Organization Details Last Updated DateTime 5 170.18 cm 35.9 kg/m2 290668. 45 g 97.4 [degF] 99 % 99 % 80 /min 112/78 mm[Hg] Flora Becerril [facility] & [place] 5 11:14:40 Social History Question Answer Notes LastModified by Organizat ion Details LastModified Time Tobacco Smoking Status Never Smoker Parris neely, [facility] & [place] 07/03/2024 15:12:10 What Is Your Level Of Caffeine Consumption? Occasional [email or web address] Information not available 07/04/2024 Sex: Female Functional Status Question Answer Note LastModified by Organizat ion Details LastModified Time Do you use any illicit or recreational drugs? No [email or web address] Information not available 07/03/2024 What is your level of alcohol consumption? Occasional [email or web address] Information not available 07/03/2024 Mental Status None recorded. Family History Relationship Description Onset Age of this Age Resolved Age Notes LastModified by Organization Details LastModified Time Father Hypertensive disorder [email or web address] Not available 06/2024 15:12:25 Father Hypercholest erolemia [email or web address] Not available 06/2024 15:12:51 Mother Hypertensive disorder [email or web address] Not available 06/2024 15:12:25 Mother Hypercholest [email or web address] Not available 06/2024 15:12:51 Mother Asthma [email or web address] Not availabl e 07/04/2024 13:49:15 Mother Chronic obstructive pulmonary disease [email or web address] Not available 06/2024 15:13:21 Maternal Grandmother Hypertensive disorder [email or web address] Not available 06/2024 15:12:25 Maternal Grandmother Chronic obstructive pulmonary disease [email or web address] Not available 06/2024 15:13:21 Maternal Grandfather Malignant neoplasm of lung Not available 06/23 13:49:15 Brother Asthma [email or web address] Not availab le 07/04/2024 13:49:15 Sister Asthma [email or web address] Not availabl e 07/04/2024 13:49:15 Medical History [...] ICD10 Code Diagnosis IMO Codes Diagnosis Note [id number] RON Azar [facility] [address] [facility] [address] [place] [address] 05/11/2025 11:05:40 05/11/2025 11:31:29 Heartburn 67512219 R12 67236 heartburn is to be expected with . Patient is to continue Tums as needed. She is to call for any worsening heartburn Normal 0911456 2 Z34.93 [id number] patient is now 32 weeks gravid. she is to continue to follow up with her obstetrici an.Discuss ed healthy nutrition to support . Encouraged patient to continue focus on protein fruits and vegetables . Small frequent meals Advised.Ron benjamin is to meet with our dietitian today. History of gastrectomy [id number] Z90.3 [id number] Patient is status post bariatric surgery and at increased risk for vitamin deficienci es and malnutriti on. Patient is to continue vitamin supplement ation. We will recheck vitamin levels at next office visit [id number] [facility] Bariatric s and Adv Surg [address] [facility] [address] [place] [address] 05/11/2025 11:30:41 05/11/2025 12:10:39 Diet education 40945589 Z71.3 [id number] Health Concerns Section Related Observation LastModified by Organization Detai ls LastModified Time None Recorded Concern Status LastModified by Organization Details LastModified Time None Recorded Payers Encounter Date Sequence Insurance Name Policy Number Policy Sanchez Covered Member ID Sanchez Member ID Guarantor Name 05/11/2025 1 [facility] (MEDICAID REPLACEMENT - HMO) MARY Christina [id number] Penelope Christina Notes Date Note Type Note [...] she states everything is going well. 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 She [...] states she had recent labs with her plane runner approximately 2 weeks ago and they were [...] she is doing well. She states her plane runner has her this the subchorionic hematoma is [...] to take medication during . RON Azar [address], [place], [address], [place] [facility] [place] [facility] [place] 05/11/2025 12:11:51 05/11/2025 text/html RDN met w/ pt for f/up s/p TORI-S. Pt is now 32 weeks . 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 daily kcal intake: 7262-9431 Est. daily protein intake: 70-90 Est. daily fluid intake: 50+ oz Meal Frequency/Pattern: eating almost every hour and doing protein focusedprotein shakes in the morning, protein spaghetti, eggs, adding in more beans, tuna, oikos drinks Drinks: body armor water Foods Not Tolerated: none noted Additional notes/concerns: Able to get food stamps and getting WIC, [employer], housing assistance ISRAEL [address]ERN[address], [address], [place], [address], [facility] & [place] 05/11/2025 11:50:26 OBGyn Episode No OBEpisode recorded.
--- OUTSIDE RECORDS SUMMARY | 2025-05-29 01:42 | XMS_ITS | Continuity of Care Document ---
Author Organization [place] [facility] Address [address] [place] [address] Care Team Providers Care Stamping Machine Operator Name Role Phone KARLOS CHESTER Primary [...] Recorded Time Paresthesi a of upper limb 62031598 Active 2023 Raquel Guillen, DO [address], [place], [address] , [place] [facility] [place] [facility] [place] 4 15:38:11 Essential hypertensi on 30303363 Active [address], [place], [address] , [place] [facility] [place] 4 12:30:28 Obesity 643354152 Active [address], [place], [address] , [place] [facility] [place] 4 12:30:50 Disorder of function of stomach 619075551 Active [address], [place], [address] , [place] [facility] [place] 4 12:30:50 Impaired glucose tolerance 5944976 Active [address], [place], [address] , [place] [facility] [place] 4 12:31:02 Postoperat nicholas pain 109623426 Active [address], [place], [address] , [place] [facility] [place] 5 08:04:37 Contact dermatitis 87417201 Active [address], [place], [address] , [place] [facility] [place] 5 10:32:01 Nausea 780194139 Active [address], [place], [address] , [place] [facility] [place] 5 09:06:20 Nausea and vomiting 98323010 Active [address], [place], [address] , [place] [facility] [place] 5 10:19:41 Bilious vomiting 44658119 Active [address], [place], [address] , [place] [facility] [place] 5 09:06:37 Mild dehydratio n 3709263396988 Active [address], [place], [address] , [place] [facility] [place] 5 09:09:44 Intentiona l weight loss 003702518 Active [address], [place], [address] , [place] [facility] & [place] 5 09:06:38 Body mass index 40+ - severely obese 278895950 Active [address], [place], [address] , [place] [facility] & [place] 5 09:07:05 Severe obesity 4740272146545 4 Active [address], [place], [address] , [place] [facility] & [place] 5 09:07:24 Nutritiona l deficiency state 11462608 Active [address], [place], [address] , [place] [facility] [place] 5 10:04:26 Epigastric pain 63105941 Active [address], [place], [address] , [place] [facility] [place] 5 10:16:35 Gestation period, 13 weeks 69631080 Active [address], [place], [address] , [place] [facility] [place] 10:26:24 Gestation period, 19 weeks 88155284 Active [address], [place], [address] , [place] [facility] [place] 13:38:05 Protein level - finding 161787705 Active [address], [place], [address] , [place] [facility] & [place] 13:39:22 Vitamin D deficiency 32506663 Active [address], [place], [address] , [place] [facility] & [place] 13:40:16 Heartburn 58205716 Active [address], [place], [address] , [place] [facility] & [place] 11:23:29 Problem Notes None recorded. Procedures Surgical History Date Name Laterality Status Provider Name and Address Organization Details Recorded Time 10/16/19 25 procedure on duodenum completed Parris Torres [place] - [facility] & [place] 11/09/2024 08:47:34 12/09/19 24 EMG/ Nerve Conduction Study completed DO [address], [place], [address], [place] [facility] & [place] 12/09/2023 15:38:04 [address] completed [address], [place], [address], [place] [facility] & [place] 07/04/2024 12:57:53 extraction of wisdom tooth completed Parris GUTHRIE - [facility] & [place] 07/03/2024 15:07:44 Tonsillectomy completed Parris GUTHRIE - [facility] & [place] 07/03/2024 15:07:52 procedure on ganglion cyst completed Stephanie Castro [place] - [facility] [place] 10/04/2024 07:53:08 Imaging Results [...] Last Updated DateTime 170.18 cm 35.9 kg/m2 053892. 45 g 97.4 [degF] 99 % 99 % 80 /min 112/78 mm[Hg] Flora Becerril [facility] & [place] 11:14:40 Social History Question Answer Notes LastModified by [employer] Details LastModified Time Tobacco Smoking Status Never Smoker Parrsi Torres null, [facility] & [place] 07/03/2024 15:12:10 What Is Your Level Of Caffeine Consumption? Occasional Information not available 07/04/2024 Sex: Female Functional Status Question Answer Note LastModified by [employer] Details LastModified Time Do you use any illicit or recreational drugs? No [email or web address] Information not available 07/03/2024 What is your level of alcohol consumption? Occasional [email or web address] Information not available 07/03/2024 Mental Status None recorded. Family History Relationship Description Onset Age of this Age Resolved Age Notes LastModified by Organization Details LastModified Time Father Hypertensive disorder [email or web address] Not available 06/2024 15:12:25 Father Hypercholest erolemia [email or web address] Not available 06/2024 15:12:51 Mother Hypertensive disorder [email or web address] Not available 06/2024 15:12:25 Mother Hypercholest erolemia [email or web address] Not available 06/2024 15:12:51 Mother Asthma [email or web address] Not availabl e 07/04/2024 13:49:15 Mother Chronic obstructive pulmonary disease [email or web address] Not available 06/2024 15:13:21 Maternal Grandmother Hypertensive disorder [email or web address] Not available 06/2024 15:12:25 Maternal Grandmother Chronic obstructive pulmonary disease [email or web address] Not available 06/2024 15:13:21 Maternal Grandfather Malignant neoplasm of lung [email or web address] Not available 06/23 13:49:15 Brother Asthma [email or web address] Not availab le 07/04/2024 13:49:15 Sister Asthma [email or web address] Not availabl e 07/04/2024 13:49:15 Medical History [...] ICD10 Code Diagnosis IMO Codes Diagnosis Note [id number] [address] [facility] [address] [place] [address] 05/11/2025 11:05:40 05/11/2025 11:31:29 Heartburn 73623117 R12 53320 heartburn is to be expected with . Patient is to continue Tums as needed. She is to call for any worsening heartburn Normal 6235296 2 Z34.93 59231376 patient is now 32 weeks gravid. she is to continue to follow up with her obstetrici an.Discuss ed healthy nutrition to support . Encouraged patient to continue focus on protein fruits and vegetables . Small frequent meals Advised.Ron benjamin is to meet with our dietitian today. History of gastrectomy 753552332 Z90.3 510434 Patient is status post bariatric surgery and at increased risk for vitamin deficienci es and malnutriti on. Patient is to continue vitamin supplement ation. We will recheck vitamin levels at next office visit [id number] [facility] [address] [place] [address] 05/11/2025 11:30:41 05/11/2025 12:10:39 Diet education 44623645 Z71.3 [id number] Health Concerns Section Related Observation LastModified by Organization Detai ls LastModified Time None Recorded Concern Status LastModified by Organization Details LastModified Time None Recorded Payers Encounter Date Sequence Insurance Name Policy Number Policy Sanchez Covered Member ID Sanchez Member ID Guarantor Name 05/11/2025 1 [facility] ([place]PLAC[place] - [place]MO) MARY Christina [id number] Penelope Christina Notes Date Note Type Note [...] she states everything is going well. 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 She [...] states she had recent labs with her cnc milling machinist approximately 2 weeks ago and they were [...] she is doing well. She states her cnc milling machinist has her this the subchorionic hematoma is [...] during . [address], [place], [address], [facility] & [place] 05/11/2025 12:11:51 05/11/2025 text/html RDN met w/ pt for f/up s/p TORI-S. Pt is now 32 weeks . 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 daily kcal intake: 1014-5915 Est. daily protein intake: 70-90 Est. daily fluid intake: 50+ oz Meal Frequency/Pattern: eating almost every hour and doing protein focusedprotein shakes in the morning, protein spaghetti, eggs, adding in more beans, tuna, oikos drinks Drinks: body armor water Foods Not Tolerated: none noted Additional notes/concerns: Able to get food stamps and getting WIC, [employer], housing assistance [address], [place], [address], [facility] & [place] 05/11/2025 11:50:26 OBGyn Episode No OBEpisode recorded.
== END 2025-05-28 23:59 | disposition home or self-care (01) ==
LOC: LAB.DROPOF 05-29 01:40
PROVIDERS: PCP Nurse Practitioner Obstetrics & Gynecology; Visit Provider Nurse Practitioner Obstetrics & Gynecology
DX: O16.1 Unspecified maternal hypertension, first trimester (principal); O99.844 Bariatric surgery status complicating childbirth; Z87.59 Personal history of other complications of pregnancy, childbirth and the puerperium
CPT/HCPCS: 86403

== ENCOUNTER 2025-06-06 14:03 | Outpatient (CLI) | payer OTHER, SELFPAY ==
--- NOTE | 2025-06-06 14:00 | US_ITS ---
PROCEDURE: US OB BIOPHYSICAL PROFILE CLINICAL INDICATION: Nonreactive NST COMPARISON: US US OB TRANSVAGINAL from 01/16/2025 US US OB /MATERNAL DETAIL from 02/14/2025 US OB FOLLOW UP from 03/08/2025 US OB BIOPHYSICAL PROFILE from 04/18/2025 US OB FOLLOW UP from 05/14/2025 FINDINGS: Transabdominal sonographic images of the uterus were obtained. From her established due date she is 36weeks 2days. The following parameters are obtained: Viable Fetus in the cephalic presentation with a posterior placenta grade 2. The cervix measures 3.60 cm in length. Measurements: heart Rate = 142bpm Amniotic fluid index: 16.71cm, MVP 4.75 cm. Qualitative AFV:2 Breathing movements: 2 Gross Body Movements: 2 Tone: 2 Biophysical profile score: 8 No obvious anomalies evident.Kidneys, profile, stomach, bladder, four-chamber heart, three-vessel cord appear normal. IMPRESSION: 1. Viable fetus in the cephalic presentation with a posterior placenta grade 2. 2. The fluid is within normal limits with an amniotic fluid index 16.71 cm, MVP 4.75 cm 3. Biophysical profile is 8/8 with good breathing movement and movement seen. 4. Limited anatomical scan appears normal. Dictated by: Gerber Mcgrath MD 06/06/2025 19:51 Gerber Mcgrath MD in OV 06/06/2025 19:51
--- OUTSIDE RECORDS SUMMARY | 2025-06-06 14:14 | XMS_ITS | Clinical Summary ---
Author Organization [facility] Address [address], [address] [place] [address] Care Team Providers Care Light Air Defense Artillery Crewmember Name Role Phone [facility] Primary Care Provider Unav ailable Allergies No [...] Plan of Treatment Not on file Insurance [facility] [place] Care Teams Light Air Defense Artillery Crewmember Relationship Specialty Start Date End Date [facility] PCP - General 07/29/21
--- OUTSIDE RECORDS SUMMARY | 2025-06-06 14:14 | XMS_ITS | Clinical Summary ---
Author Organization [facility] Address [address] [place] [address] Care Team Providers Care Director Of Operations For Therapy Name Role Phone Wilmer Niya Ellis NP [...] Anxiety disorder Sister Charity marin Asthma Sister Chairty marin Depression Sister Charity marin Miscarriages / [...] patient's age to complete this topic Insurance [place] MEDICA[place] [facility] Care Teams Director Of Operations For Therapy Relationship Specialty Start Date End Date Niya Guillen NP [address] [place] [address], [address] [place] [address] PCP - General Family Medicine 03/31/22
== END 2025-06-06 23:59 | disposition home or self-care (01) ==
LOC: RAD 14:04
PROVIDERS: PCP Nurse Practitioner Family; Visit Provider Obstetrics & Gynecology
DX: O16.3 Unspecified maternal hypertension, third trimester (principal); O28.8 Other abnormal findings on antenatal screening of mother; Z3A.36 36 weeks gestation of pregnancy
CPT/HCPCS: 76819

== ENCOUNTER 2025-06-13 10:19 | Outpatient (CLI) | payer OTHER, SELFPAY ==
--- NOTE | 2025-06-13 10:15 | US_ITS ---
PROCEDURE: US OB FOLLOW UP CLINICAL INDICATION: repeat U/S in 4wks for growth COMPARISON: US US OB <= 14 WEEKS FETUS from 12/14/2024 US US OB <= 14 WEEKS FETUS from 12/28/2024 US OB FOLLOW UP from 01/16/2025 US US OB TRANSVAGINAL from 01/16/2025 US OB /MATERNAL DETAIL from 02/14/2025 US OB FOLLOW UP from 03/08/2025 US OB BIOPHYSICAL PROFILE from 04/18/2025 US OB FOLLOW UP from 05/14/2025 US OB BIOPHYSICAL PROFILE from 06/06/2025 FINDINGS: Transabdominal sonographic images of the pelvis were obtained. The following parameters are obtained: From her established due date she is 37weeks 2days Viable fetus in the cephalic presentation with a posterior placenta grade 2. There are several placental lakes. The cervix measures 2.44 cm heart rate: 121bpm bpm. Average ultrasound age 36 weeks 5 days Estimated weight 2935 grams, 6 lb 8 oz BPD: 36weeks 4days, 46 percentile HC: 38weeks 0 days, 42 percentile AC: 36weeks 5days, 46 percentile FL: 35weeks 3days, 9 percentile HC/AC: 1.02 FL/BPD: 0.76 FL/AC: 0.21 Growth percentile: 35 Amniotic fluid index: 13.65cm, MVP 4.28 cm No obvious anomalies evident. Stomach, bladder, kidneys, three-vessel cord, four chamber heart appear normal. IMPRESSION: 1. Viable fetus in the cephalic presentation with a posterior placenta grade 2. 2. The fluid is within normal limits with an amniotic fluid index 13.65 cm, MVP 4.28 cm. 3. There has been good interval growth with the fetus currently 35th percentile. 4. movement and breathing movement were seen. 5. Limited anatomical scan appears normal. Dictated by: Gerber Mcgrath MD 06/13/2025 14:14 Gerber Mcgrath MD in OV 06/13/2025 14:14
== END 2025-06-13 23:59 | disposition home or self-care (01) ==
LOC: RAD 10:20
PROVIDERS: PCP Obstetrics & Gynecology; Visit Provider Obstetrics & Gynecology
DX: O99.843 Bariatric surgery status complicating pregnancy, third trimester (principal); Z87.59 Personal history of other complications of pregnancy, childbirth and the puerperium; Z3A.37 37 weeks gestation of pregnancy
CPT/HCPCS: 76816

== ENCOUNTER 2025-06-15 03:35 | Inpatient (IN) | payer OTHER, SELFPAY ==
--- OUTSIDE RECORDS SUMMARY | 2017-04-29 08:24 | XMS_ITS | Continuity of Care Document ---
Author Organization [facility] Address [address] [place] [address] Phone Care Team Providers Care Manufacturers Agent Name Role Phone Bijan Jang DO Unavailable Unavailable Advance Directives Directive Yes / No Effective Date File Name No Information Encounters Encounter Description Practice Location Reason(s) For Visit Diagnoses Date Provider Providers Copied on Encounter [facility], [address], [place], [place], [id number], [place] tel:[phone] [address] [place] [address] No Information 7 Suhail Livingston. [address], [place], [address], [place]. tel:[phone] Family History Family Member Type Diagnosis Age At Onset No Information Immunizations Vaccine Date Status Comments Tdap (Adacel) administered Note: Tdap gi usha by [facility] ; Source: Other Registry Payers Payer [...]
--- OUTSIDE RECORDS SUMMARY | 2025-06-14 23:17 | XMS_ITS | Encounter Summary ---
Author Organization [facility] Address [facility] [place] [address] [address] Phone Care Team Providers Care Knife Setter Name Role Phone Karishma Torres MD Primary Care Provider [phone] Nola Dowling MD Primary Care Provider Eben Ball MD Primary Care Provide r Pcp, Nagi HERNANDEZ Primary Care Provider Encounter Details Date Type Department Care Team (Late st Contact Info) Description 11/04/2020 E-Visit [facility] [address] [place], [place] [address]e [address] [place] [address] [place] [address] [place] [address] RE: RE: Other Topic (See message) Social History Tobacco Use Types Packs/Day Years Used Date Smoking Tobacco: Never Smokeless Tobacco: Never Alcohol Use Standard Drinks/Week Comments Yes 0 (1 standard drink = 0.6 oz pur e alcohol) smirnoff ice twice per year [place] Depression Scale Answer Date Recorded [place] Depression Scale Total 4 12/20/2019 The thought [...] Author No 06/05/2020 2:25 PM EDT Debbie Hwoell Registered Nurse * Are you blind or [...] on filedocumented in this encounter Care Teams Knife Setter Relationship Specialty Start Date End Date Karishma Torres MD PCP - General Family Medicine 03/19/20 02/19/21 Nola Dowling MD PCP - General Family Medicine 02/20/21 02/21/24 Eben Ball MD PCP - General Family Medicine 02/22/24 02/25/25 Pcp, MD Nagi No Address [place], [place] PCP - General Internal Medicine 02/26/25 documented as of this encounter
--- OUTSIDE RECORDS SUMMARY | 2025-06-14 23:18 | XMS_ITS | Encounter Summary ---
Author Organization [facility] Address [facility] [place] [address] Phone Care Team Providers Care Choir Teacher Name Role Phone Karishma Torres MD Primary Care Provider [phone] Nola Dowling MD Primary Care Provider Eben Ball MD Primary Care Provide r Pcp, Nagi HERNANDEZ Primary Care Provider Encounter Details Date Type Department Care Team (Late st Contact Info) Description 07/26/[address] [address] Morgan Samaniego MD [address] [place] [address] [address] [place] [address] Social History Tobacco Use Types [...] documented as of this encounter Care Teams Choir Teacher Relationship Specialty Start Date End Date Karishma Torres MD PCP - General Family Medicine 03/19/20 02/19/21 Nola Dowling MD PCP - General Family Medicine 02/20/21 02/21/24 Eben Ball MD PCP - General Family Medicine 02/22/24 02/25/25 PcpNagi MD No Address [place], [place] PCP - General Internal Medicine 02/26/25 documented as of this encounter
--- OUTSIDE RECORDS SUMMARY | 2025-06-14 23:18 | XMS_ITS | Encounter Summary ---
Author Organization [employer] [facility] Address [facility] [place] [address] [address] Phone Care Team Providers Care Repairer Pump Name Role Phone Karishma Torres MD Primary Care Provider [phone]- [phone] Nola Dowling MD Primary Care Provider Eben Ball MD Primary Care Provide r PcpNagi MD Primary Care Provider [phone] Encounter Details Date Type Department Care Team (Late st Contact Info) Description 04/19/2019 OB Documents [facility] Care Program [address] [place] [phone] [facility], MD allison [facility] [place] [address] Social History Tobacco Use Types Packs/Day Years [...] documented as of this encounter Care Teams Repairer Pump Relationship Specialty Start Date End Date Karishma Torres MD PCP - General Family Medicine 03/19/20 02/19/21 Nola Dowling MD PCP - General Family Medicine 02/20/21 02/21/24 Eben Ball MD PCP - General Family Medicine 02/22/24 02/25/25 PcpNagi MD No Address [place], [place] PCP - General Internal Medicine 02/26/25 documented as of this encounter
--- OUTSIDE RECORDS SUMMARY | 2025-06-14 23:18 | XMS_ITS | Clinical Summary ---
Author Organization [facility] Address [address] [place] [address] Phone Care Team Providers Care Steel Buffer Name Role Phone Pcp, None MD Primary Care Provider [phone] Allergies No known active allergies Medications Blood Pressure Monitoring (BLOOD PRESSURE MONITOR/L CUFF) [facility] Check blood pressure three times daily. 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 TRACHOMATIS BY AMP RNA Not Detected Not Detected [facility] 2 N. GONORRHOEAE BY AMP RNA Not Detected Not Detected [facility] 2 Comment: (NOTE) Testing methodology is etcher electrolytic mediated amplification (TMA) using the Aptima Combo 2 assay from [employer] 2 Step. A negative result does not completely rule [...] methodology is available upon request. Tested at: [facility], [address] [place] [address] Urine specimen (specimen) URINE SPECIMEN / Unknown 10/09/2021 2:39 PM EST 10/09/2021 8:49 PM EST us Josué Silva Jr., MD BODY FLUIDS AND STOOLS ORDERABLES Final Result [facility] [address] [place] [id number] [place] [address] 2 * (ABNORMAL) CYTOLOGY LOGGING TRACTOR OPERATOR SWAMP (01/25/2020 11:33 AM EDT) CYTOLOGY-LOGGING TRACTOR OPERATOR SWAMP CYTOLOGY GYNECOLOGICAL REPORT Name: PENELOPE MERRITT#: [id number] Case #: [id number] Final Cytologic Diagnosis A. Cervical/Endocervic al thinprep pap: Adequacy: Satisfactory for evaluation, endocervical transformation zone component present. Interpretation: Epithelial cell abnormality: Low-grade squamous intraepithelial lesion. This specimen has been analyzed by the ThinPrep Imaging System (Nexavis.), an automated imaging and review system, which assists the manager patient and/or pathologist in evaluation of cells on Thinprep Pap tests. Flavia Up Electronically Signed Out By Diana Guillen MD Source of Specimen(s) A: Cervical/Endocervic al thinprep pap Clinical History Date of Last Menstrual Period: 01/03/2020 Signed out at [facility], [address] [place] [address] [facility] [facility] Non-Formatted Report (A) [facility] 01/25/2020 11:3 3 AM EDT 01/26/2020 3:41 PM EDT Gordo Trejo MD PATHOLOGY/CYTOLOGY ORDERAB LES Final Result [facility] [address] [place], [place] [id number] from Last 3 Months or Most Recently Relevant to Health Maintenance Advance Directives * Full Code (Latest Code Status on File) Date Activated Date Inactivated Comments 11/23/2019 12:21 AM 11/24/2019 2:14 PM * Full Code Date Activated Date Inactivated Comments 11/22/2019 10:21 AM 11/23/2019 12:20 AM Care Teams Steel Buffer Relationship Specialty Start Date End Date Pcp, MD Nagi No Address [place], [place] PCP - General Internal Medicine 02/26/25
--- OUTSIDE RECORDS SUMMARY | 2025-06-14 23:18 | XMS_ITS | Clinical Summary ---
Author Organization [facility] Address [address] [place] [address] Care Team Providers Care Revenue Inspector Name Role Phone [facility] Primary Care Provider Unav ailable Allergies No [...] Plan of Treatment Not on file Insurance [facility] [place] Care Teams Revenue Inspector Relationship Specialty Start Date End Date [facility] PCP - General 07/29/21
--- OUTSIDE RECORDS SUMMARY | 2025-06-14 23:18 | XMS_ITS | Clinical Summary ---
Author Organization [facility] Address [address] [place] [address] Care Team Providers Care Parts Chaser Name Role Phone Wilmer Niya Ellis NP [...] patient's age to complete this topic Insurance [place] MEDICAID [facility] Care Teams Parts Chaser Relationship Specialty Start Date End Date Niya Guillen NP [address] [place] [address], [address] [place] [address] PCP - General Family Medicine 03/31/22
--- OUTSIDE RECORDS SUMMARY | 2025-06-14 23:18 | XMS_ITS | Clinical Summary ---
Author Organization [facility] Address [address] [place] [address] Care Team Providers Care Account Services Coordinator Name Role Phone Felipa Her APRN Primary Care Provider [phone] Allergies No known active allergies Medications hydroCHLOROthiazid e (HYDRODIURIL) 12.5 MG tablet 1 tablet. 03/30/20 23 Active Cholecalciferol (Vitamin D3) 1.25 MG (03168 UT) capsule TAKE ONE CAPSULE BY MOUTH [...] Date entered milka or to episode creation Immunizations Immunization Administration Dates Next Due DTaP [...] Tdap) 06/05/2025 06/05/2015 HPV VACCINES Completed 12/08/2012, 1104/2012, 05/31/2012 Pneumococcal Vaccine 0-49 Aged Out No longer eligible based on patient's age to complete this topic Insurance [facility] Care Teams Account Services Coordinator Relationship Specialty Start Date End Date Felipa Her APRN [address] [place] [address] [place] [address] PCP - General Nurse Practitioner 08/10/23
--- OUTSIDE RECORDS SUMMARY | 2025-06-14 23:18 | XMS_ITS | Encounter Summary ---
Author Organization [employer] [facility] Address [facility] [place] [address] Phone Care Team Providers Care Blanker Operator Name Role Phone Karishma Torres MD Primary Care Provider [phone] Nola Dowling MD Primary Care Provider Eben Ball MD Primary Care Provide r PcpNagi MD Primary Care Provider [phone] Encounter Details Date Type Department Care Team (Late st Contact Info) Description 11/22/2019 OB Documents TH Care Program [address] [place] [phone] [facility] [place] [address] Social History Tobacco Use Types Packs/Day Years [...] documented as of this encounter Care Teams Blanker Operator Relationship Specialty Start Date End Date Karishma Torres MD PCP - General Family Medicine 03/19/20 02/19/21 Nola Dowling MD PCP - General Family Medicine 02/20/21 02/21/24 Eben Ball MD PCP - General Family Medicine 02/22/24 02/25/25 Nagi Rodriguez MD No Address [place], [place] PCP - General Internal Medicine 02/26/25 documented as of this encounter
--- OUTSIDE RECORDS SUMMARY | 2025-06-14 23:18 | XMS_ITS | Encounter Summary ---
Author Organization [facility] P Address [facility] [place] [address] Phone Care Team Providers Care Vinyl Welder And Fabricator Name Role Phone Karishma Torres MD Primary Care Provider [phone] Nola Dowling MD Primary Care Provider Eben Ball MD Primary Care Provide r Pcp, Nagi HERNANDEZ Primary Care Provider Encounter Details Date Type Department Care Team (Late st Contact Info) Description 07/27/[address] [address] Morgan Samaniego MD [address] [place] [address] [id number] [place] [address] Social History Tobacco Use Types [...] documented as of this encounter Care Teams Vinyl Welder And Fabricator Relationship Specialty Start Date End Date Karishma Torres MD PCP - General Family Medicine 03/19/20 02/19/21 Nola Dowling MD PCP - General Family Medicine 02/20/21 02/21/24 Eben Ball MD PCP - General Family Medicine 02/22/24 02/25/25 PcpNagi MD No Address [place], [place] PCP - General Internal Medicine 02/26/25 documented as of this encounter
[2025-06-14 23:22] VITALS: BP 130/94; PULSE 90; RESP 16; TEMP 36.6; O2SAT 97; BMI 35.5
[2025-06-14 23:46] LABS: Color,Urine YELLOW (Yellow); Glucose,Urine (UA) Negative (Negative); Ketones,Urine TRACE (Negative); Leukocyte Esterase,Urine 1+ (Negative); PH,Urine 5.5 (5.0-8.5); Protein,Urine NEGATIVE (Negative); Specific Gravity, Urine >= 1.030 (1.005-1.030); Urobilinogen,Urine 1.0 EU/dl (0.2)
[2025-06-14 23:49] LABS: Bilirubin,Urine Negative (Negative)
[2025-06-14 23:51] LABS: Microscopic, Urine URINE MICROSCOPIC (MICROSCOPIC)
[2025-06-14 23:56] LABS: Bacteria,Urine 4+ /lpf; Mucus,Urine 2+ /lpf; WBC,Urine TNTC #/hpf (0-3)
[2025-06-15] MEDS: LACTATED RINGERS 1000ML 1,000 ML 999 ML IV ×2 (01:20→20:35)
[2025-06-15] MEDS: ACETAMINOPHEN 325MG/10.15ML UDC 650 MG PO (04:16)
--- NOTE | 2025-06-15 09:13 | HMH.PHAINT1 ---
Pharmacy Intervention Comments: MEDICATION RECONCILIATION COMPLETED ON PATIENT USING EXTERNAL FILL HISTORY FROM PHARMACY. -CRISTEL YATES, MIREYAD
[2025-06-15] MEDS: ONDANSETRON 4MG/2ML VIAL 4 MG IV (09:21)
[2025-06-15] MEDS: CEFTRIAXONE 1 GM 1 GM in 0.9 % SODIUM CHLORIDE 50 ML IV (12:03)
[2025-06-15] MEDS: ACETAMINOPHEN 1,000MG/100ML VIAL 1000 MG IV (16:04)
[2025-06-15] MEDS: PROMETHAZINE HCL 25MG/ML 1ML VIAL 12.5 MG IV (16:04)
[2025-06-15] MEDS: MORPHINE 4MG/ML SYRINGE 1 MG IV (16:05)
[2025-06-15] MEDS: SODIUM CHLORIDE 0.9% 25ML BAG 25 ML IV (16:05)
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
[2025-06-15 18:43] LABS: Hematocrit 37.0 % (37.0-47.0); Hemoglobin 12.2 g/dL (12.2-16.2); Immature Granulocytes % 0.3 %; Mean Corpuscular HGB Conc 33.0 g/dL (31.8-35.4); Mean Corpuscular Hemoglobin 33.1 pg (27.0-31.2); Mean Corpuscular Volume 100.3 fl (81-99); Nucleated Red Blood Cells % 0 %; Platelet Count 182 K/mm3 (142-424); Red Blood Count 3.69 M/mm3 (4.20-5.40); Red Cell Distribution Width-SD 63.3 fL; White Blood Count 11.7 K/mm3 (4.8-10.8)
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
[2025-06-16 07:07] LABS: Chloride 106 mmol/L (98-107)
[2025-06-16 07:08] LABS: Albumin Level 3.4 g/dl (3.5-5.0); Potassium 3.8 mmoL/L (3.5-5.1); Sodium 132 mmol/L (136-145)
[2025-06-16 07:10] LABS: Alanine Aminotransferase 25 U/L (12-78); Anion Gap 11.8 mEq/L (5-15); Aspartate Amino Transferase 41 U/L (14-36); Blood Urea Nitrogen 9 mg/dl (7-17); Carbon Dioxide 18 mmol/L (22.0-30.0); Creatinine Clearance Estimated 192 mL/min (50-200); Creatinine,Serum 0.70 mg/dl (0.52-1.04); Estimated Glomerular Filt Rate 101 ml/min (>60); GFR (African American) 122 ML/MIN (>60)
[2025-06-16 07:11] LABS: Albumin/Globulin Ratio 1.1 (1.1-1.8); Alkaline Phosphatase 115 U/L (38-126); Bilirubin,Total 0.9 mg/dl (0.2-1.3); Calcium 8.7 mg/dl (8.4-10.2); Globulin 3.0 g/dL (1.3-3.2); Glucose 79 mg/dl (74-100); Total Protein,Serum 6.4 g/dl (6.3-8.2)
[2025-06-16] MEDS: OXYTOCIN/RINGERS LACTATE 30 UNITS/500 ML BAG 999 UNITS IV (07:33)
--- NOTE | 2025-06-16 08:03 | EXP.DN ---
Delivery Note Delivery Date:: 06/16/25 Delivery Time:: 07:27 Anesthesia Type: Epidural Was labor medically induced?: No Induction method: none Gestational age (weeks): 37 delivered prior to 39 weeks?: Yes Justification for early elective delivery:: Active Labor Infant Gender: Male at 1 minute: 9 at 5 minutes: 10 Delivery Procedure:: Preoperative diagnosis: 1. at 37w5d completed this weeks gestation, vertex 2. Rh positive 3. GBS negative 4. Persistent nausea and vomiting with maternal weight loss or 5. Maternal obesity 6. Bariatric surgery in first trimester Postoperative diagnosis: 1. at 37w5d completed this weeks gestation, vertex 2. Rh positive 3. GBS negative 4. Persistent nausea and vomiting with maternal weight loss or 5. Maternal obesity 6. Bariatric surgery in first trimester EBL: 150mL Specimen: 1. Cord blood 2. Placenta Findings: 1. Liveborn viable male infant: Curtis. Apgars 9/10 at 1 and 5 minutes respectively. Weight 6lb 0oz, 2724g. 2. 2nd degree midline perineal laceration Complications: None Procedure: Nonoperative spontaneous vaginal delivery Penelope Christina is a 24yo who presented on Wednesday morning 06/15/2025 with regular painful contractions. She was observed and suspected to be in early latent labor. She slowly made progress throughout the day on Wednesday. Without any augmentation she progressed to complete this morning around 7 AM and delivered a live viable on 06/16/2025 at 07 . Her was complicated by maternal obesity, persistent nausea vomiting and weight loss throughout , and bariatric surgery in the first trimester. The infant was noted to be in OP position. With effective maternal pushing there was a nonoperative spontaneous vaginal delivery at 0727. There was no nuchal cord with delivery. The anterior right shoulder delivered, followed by the posterior shoulder without dystocia. The body and lower extremities delivered without difficulty. The was bulb suctioned and was crying immediately following delivery. The infant was placed on the maternal abdomen and greater than one minute was appreciated for delayed cord clamping. The umbilical cord was doubly clamped and cut. Cord blood was collected and sent for routine testing. The placenta delivered with cord traction and suprapubic contertraction at 0731. Pitocin was started. The uterus was firm and bleeding was minimal. The perineum, vaginal gatica, cervix, and paraurethral area were inspected thoroughly. There was a second-degree midline perineal laceration. The laceration was repaired in the usual fashion using 2-0 Vicryl suture. The laceration was hemostatic. The cervix and vaginal gatica were inspected and noted to be hemostatic. This concluded the delivery. The patient was counseled regarding the events of the delivery and repair. The patient tolerated the delivery well. All counts were correct by nursing. Mother and were doing well and bonding upon my leaving the delivery room. Laceration:: vaginal Placental Delivery Description: Spontaneous
[2025-06-16] MEDS: ONDANSETRON 4MG/2ML VIAL 4 MG IV (09:34)
[2025-06-16] MEDS: ACETAMINOPHEN 325MG/10.15ML UDC 650 MG PO ×3 (09:34→21:12)
[2025-06-16 10:43] LABS: RPR W/RFX Titers Nonreactive (Nonreactive)
[2025-06-16] MEDS: PROMETHAZINE HCL 25MG/ML 1ML VIAL 12.5 MG IV (12:55)
[2025-06-16] MEDS: SODIUM CHLORIDE 0.9% 25ML BAG 25 ML IV (12:56)
[2025-06-16] MEDS: WITCH HAZEL 40 PADS/BOX 1 EACH TP (17:55)
[2025-06-16] MEDS: BENZOCAINE-MENTHOL SPRAY 56GM CAN TP (17:55)
[2025-06-16 20:50] VITALS: BP 122/92; PULSE 59; RESP 16; TEMP 36.5; O2SAT 99
[2025-06-16] MEDS: FAMOTIDINE 20MG TABLET 20 MG PO (21:12)
[2025-06-17 05:00] VITALS: BP 107/58; PULSE 61; RESP 16; TEMP 36.6; O2SAT 96
[2025-06-17] MEDS: ACETAMINOPHEN 325MG/10.15ML UDC 650 MG PO ×3 (06:02→22:00)
[2025-06-17] MEDS: WITCH HAZEL 40 PADS/BOX 1 EACH TP (06:04)
[2025-06-17 06:06] LABS: Hematocrit 32.0 % (37.0-47.0); Hemoglobin 10.9 g/dL (12.2-16.2); Immature Granulocytes % 0.4 %; Mean Corpuscular HGB Conc 34.1 g/dL (31.8-35.4); Mean Corpuscular Hemoglobin 32.8 pg (27.0-31.2); Mean Corpuscular Volume 96.4 fl (81-99); Nucleated Red Blood Cells % 0 %; Platelet Count 131 K/mm3 (142-424); Red Blood Count 3.32 M/mm3 (4.20-5.40); Red Cell Distribution Width-SD 60.8 fL; White Blood Count 8.2 K/mm3 (4.8-10.8)
[2025-06-17 08:50] VITALS: BP 126/82; PULSE 57; RESP 17; TEMP 36.5; O2SAT 96
--- NOTE | 2025-06-17 13:14 | EXP.PN ---
Subjective *Date: 06/17/25 *Time: 13:14 Interval history: Penelope Christina is a 24-year-old G2, P2 day #1 following a normal spontaneous vaginal delivery at 37 weeks and 5 days gestation. Routine delivery and course. She is doing well, sitting up in bed, and visiting with family this morning. -Reports pain is well-controlled -Reports she is tolerating p.o. without nausea or vomiting. -Reports her lochia is scant. -Desires to use the contraceptive patch for contraception -She is breast-feeding her female -Ambulating, voiding difficulty or dysuria. Denies chest pain shortness of breath or pain in her legs. No further complaints at this time. Exam Data for Last 24 hours Vital signs and Labs for Last 24 Hours: Temp Pulse Resp BP Pulse Ox O2 Del Method 97.7 F 57 L 17 126/82 96 Room Air 06/17/25 08:50 06/17/25 08:50 06/17/25 08:50 06/17/25 08:50 06/17/25 08:50 06/17/25 08:50 Laboratory Results - last 24 hr 06/17/25 05:30: WBC 8.2 D, RBC 3.32 L, Hgb 10.9 L, Hct 32.0 L, MCV 96.4, MCH 32.8 H, MCHC 34.1, RDW 17.2, Plt Count 131 L D, MPV 11.0 H, Neut % (Auto) 49.3, Lymph % (Auto) 44.5, [place] % (Auto) 4.4, Eos % (Auto) 1.0, Baso % (Auto) 0.4, Neut # (Auto) 4.1, Lymph # (Auto) 3.7, [place] # (Auto) 0.4, Eos # (Auto) 0.1, Baso # (Auto) 0.0 I & O for Last 24 hours: Intake & Output 06/14/25 06/15/25 06/16/25 06/17/25 23:59 23:59 23:59 23:59 Intake Total 2049 489.75 / 489.75 Output Total 500 / 500 Balance 2049 -10.25 / -10.25 Weight 220 lb Narrative: General: patient is alert oriented in no acute distress and responds appropriately to questions. Appears to be in minimal pain. HEENT: NCAT, EOMI, moist mucous membranes, neck supple with full ROM Cardiovascular: RRR +S1/S2, no murmurs or rubs Pulmonary: Clear to auscultation bilaterally, nonlabored breathing, symmetric chest rise Abdominal: Fundus below the umbilicus, firm, and tenderness appropriate for the period. Extremities: trace edema, no tenderness or cyanosis noted Skin: Normal turgor, intact, warm. Negative for erythema, pallor, petechia, or lesions Neurologic: Negative for sensory or motor deficit Psychiatric: Normal affect, normal thought process, good judgment and insight, no depression or anxious mood appreciated. Assessment and Plan *Assessment and plan (1) Active labor: Status: Acute Category: Medical (2) Vomiting: Status: Acute Category: Medical Code(s): R11.10 - Vomiting, unspecified (3) Bariatric surgery status complicating childbirth: Status: Acute Category: Medical Code(s): O99.844 - Bariatric surgery status complicating childbirth (4) History of gestational hypertension: Status: Acute Category: Medical Code(s): Z87.59 - Personal history of other complications of , childbirth and the puerperium (5) Diarrhea: Status: Acute Category: Medical Code(s): R19.7 - Diarrhea, unspecified (6) Morbid obesity: Status: Acute Category: Medical Code(s): E66.01 - Morbid (severe) obesity due to excess calories (7) Headache: Status: Acute Category: Medical Code(s): R51.9 - Headache, unspecified (8) Pre-diabetes: Status: Acute Category: Medical Code(s): R73.03 - Prediabetes (9) Iron deficiency: Status: Acute Category: Medical Code(s): E61.1 - Iron deficiency (10) (normal spontaneous vaginal delivery): Status: Acute Category: Medical Code(s): O80 - Encounter for full-term uncomplicated delivery Plan Stable. PPD#1 s/p -Doing well. VSS. Serial lochia and fundal checks. -Continue with perineal ice packs for discomfort -Hemoglobin: 12.2--> 10.9 -B+/antibody negative -Bottle feeding, male -Desires circumcison, consents signed and risks reviewed. completed this morning -Contraception: undecided -Follow-up 2 weeks for routine visit -Dispo: home in 1-3 days pending mother/infant status
[2025-06-17 20:18] VITALS: BP 112/76; PULSE 61; RESP 18; TEMP 36.7; O2SAT 98
[2025-06-17] MEDS: FAMOTIDINE 20MG TABLET 20 MG PO (22:00)
[2025-06-18 04:25] VITALS: BP 107/67; PULSE 57; RESP 16; TEMP 36.9; O2SAT 97
[2025-06-18] MEDS: ACETAMINOPHEN 325MG/10.15ML UDC 650 MG PO (04:32)
[2025-06-18 08:05] VITALS: BP 127/91; PULSE 63; RESP 18; TEMP 36.7; O2SAT 97
[2025-06-18] MEDS: BENZOCAINE-MENTHOL SPRAY 56GM CAN TP (11:29)
[2025-06-18] MEDS: WITCH HAZEL 40 PADS/BOX 1 EACH TP (11:29)
--- NOTE | 2025-06-18 11:39 | EXP.DC.SUM ---
General Admission date:: 06/15/25 Discharge date: 06/18/25 HPI HPI HPI: Ms. Penelope Christina is a very pleasant 24-year-old G2, P1 who presented early this morning with regular painful contractions. She has been monitored throughout the day and noted to make slow changes. She was in early labor but she is now 6 cm and she will be admitted for labor monitoring and augmentation if necessary. This has been complicated by maternal obesity, weight loss throughout the , bariatric surgery in the first trimester. She has a history of gestational hypertension B+, antibody negative, rubella immune, hepatitis B negative, hepatitis C negative, RPR negative, HIV negative 1 hour GTT: 71 GBS negative Hospital Course Hospital Course Hospital Course: She progressed to full dilation. The was noted to be in OP position. With effective maternal pushing there was a nonoperative spontaneous vaginal delivery at 0727. There was no nuchal cord with delivery. The anterior right shoulder delivered, followed by the posterior shoulder without dystocia. The body and lower extremities delivered without difficulty. The infant was bulb suctioned and was crying immediately following delivery. The infant was placed on the maternal abdomen and greater than one minute was appreciated for delayed cord clamping. The umbilical cord was doubly clamped and cut. Cord blood was collected and sent for routine testing. The placenta delivered with cord traction and suprapubic contertraction at 0731. Pitocin was started. The uterus was firm and bleeding was minimal. The perineum, vaginal gatica, cervix, and paraurethral area were inspected thoroughly. There was a second-degree midline perineal laceration. The laceration was repaired in the usual fashion using 2-0 Vicryl suture. The laceration was hemostatic. The cervix and vaginal gatica were inspected and noted to be hemostatic. This concluded the delivery. The patient was counseled regarding the events of the delivery and repair. The patient tolerated the delivery well. All counts were correct by nursing. Mother and infant were doing well and bonding upon my leaving the delivery room. The baby was a liveborn male child weighing 6 pounds 0 ounces. He was 18.5 inches long. He had Apgars of 9 at 1 minute and 10 at 5 minutes. She has done well and has remained afebrile throughout her hospitalization. She is eating and drinking and ambulating. She is bottlefeeding. Her lochia is normal. She will be discharged home to follow-up in [address] Christina. She will continue with her vitamins. She was given the usual instructions with respect to limiting her activity, driving and sexual activity. Her acute found charges stable and improved. Exam Data for Last 24 hours Vital signs and Labs for Last 24 Hours: Temp Pulse Resp BP Pulse Ox O2 Del Method 98.0 F 63 18 127/91 H 97 Room Air 06/18/25 08:05 06/18/25 08:05 06/18/25 08:05 06/18/25 08:05 06/18/25 08:05 06/18/25 08:05 I & O for Last 24 hours: Intake & Output 06/15/25 06/16/25 06/17/25 06/18/25 11:59 11:59 11:59 11:59 Intake Total 1000 / 1000 1299.75 / 1299.75 240 / 240 Output Total 500 / 500 Balance 1000 / 1000 799.75 / 799.75 240 / 240 Weight 220 lb Constitutional Constitutional: no acute distress *Routine HEENT Exam Head: Present normocephalic *Routine Neck Exam Neck: Present full ROM *Routine Respiratory Exam Respiratory: Present normal respiratory effort; Absent accessory muscle use DS: Diagnosis Discharge Diagnosis (1) Active labor: Status: Acute (2) Bariatric surgery status complicating childbirth: Status: Acute Code(s): O99.844 - Bariatric surgery status complicating childbirth (3) History of gestational hypertension: Status: Acute Code(s): Z87.59 - Personal history of other complications of , childbirth and the puerperium (4) Diarrhea: Status: Acute Code(s): R19.7 - Diarrhea, unspecified Qualifiers: Diarrhea type: unspecified type Qualified Code(s): R19.7 - Diarrhea, unspecified (5) Morbid obesity: Status: Acute Code(s): E66.01 - Morbid (severe) obesity due to excess calories (6) Pre-diabetes: Status: Acute Code(s): R73.03 - Prediabetes (7) Iron deficiency: Status: Acute Code(s): E61.1 - Iron deficiency (8) (normal spontaneous vaginal delivery): Status: Acute Code(s): O80 - Encounter for full-term uncomplicated delivery Meds Home Medications and Allergies Home Medications ?Medication ?Instructions ?Recorded ?Confirmed ?Type aspirin 81 mg tablet 81 mg PO DAILY #30 tabs 01/05/25 06/15/25 Rx famotidine 20 mg tablet (Pepcid) 20 mg PO BID #60 tabs 04/18/25 06/15/25 Rx New Prescriptions to Start Prescriptions: Allergies Allergy/AdvReac Type Severity Reaction Status Date / Time grass pollen Allergy Sneezing Verified 06/14/25 14:01 nitrocellulose (From New AdvReac Rash Verified 06/14/25 14:01 Skin (nitrocellulose)) Discharge Plan Disposition Patient Disposition: Home, Self-Care Discharge Order Discharge Orders: Discharge Order (Routine); Ordered 06/18/25 Ordered By: Gerber Mcgrath Follow up Plan Follow up with: Livia Christina DO [Staff Physician, TUBE INSPECTOR] - 06/29/25 3:00 pm Prescriptions/Medication Reconciliation: Continued aspirin 81 mg tablet 81 mg PO DAILY Qty: 30 2RF famotidine [Pepcid] 20 mg tablet 20 mg PO BID Qty: 60 2RF Problem Reconciliation Problems Reviewed?: Yes Patient Discharge Instructions ACTIVITY: No heavy lifting DIET: continue same diet Patient Instructions: Depression, Hemorrhage, DI for Labor and Delivery, Vaginal , DI for Pre-eclampsia, [facility] Post Discharge Instructions Print Language: Lao Providers Primary Care Provider: Felipa Her Provider: Livia Christina Attending Provider: Livia Christina
== END 2025-06-18 13:20 | disposition home or self-care (01) | DRG 807 ==
LOC: OBOUT 03:35 → OB 03:35
PROVIDERS: Admitting Provider Obstetrics & Gynecology; PCP Nurse Practitioner Family; Visit Provider Obstetrics & Gynecology
DX: O99.214 Obesity complicating childbirth (principal); Z37.0 Single live birth; Z3A.37 37 weeks gestation of pregnancy; O99.844 Bariatric surgery status complicating childbirth; E66.01 Morbid (severe) obesity due to excess calories; O99.284 Endocrine, nutritional and metabolic diseases complicating childbirth; E61.1 Iron deficiency; O32.8XX0 Maternal care for other malpresentation of fetus, not applicable or unspecified; O99.892 Other specified diseases and conditions complicating childbirth; O21.8 Other vomiting complicating pregnancy; O70.1 Second degree perineal laceration during delivery; R73.03 Prediabetes; R19.7 Diarrhea, unspecified; R51.9 Headache, unspecified; Z87.59 Personal history of other complications of pregnancy, childbirth and the puerperium; Z79.82 Long term (current) use of aspirin; Z79.899 Other long term (current) drug therapy; Z91.048 Other nonmedicinal substance allergy status; Z23 Encounter for immunization
CPT/HCPCS: 36415; 51702; 59025; 80053; 81003; 81015; 85025; 86592; 86850; 87086; 96360; 99212; G0463; J0131; J0696; J2270; J2405; J2550; J7120

== ENCOUNTER 2025-06-26 10:08 | Outpatient (CLI) | payer OTHER, SELFPAY ==
--- OUTSIDE RECORDS SUMMARY | 2025-06-26 10:11 | XMS_ITS | Data Portability ---
Author Organization [facility] AD[facility] Address [address] [place] [id number] Care Team Providers Care Project Specialist Name Role Phone KARLOS CHESTER Primary [...] 64 fluid oz, try to get in [phone] calories starting now 7. Use OxThera dot to track 8. Take vitamins as [...] modifications. Will f/up as scheduled or PRN. [email or web address] Not available 05/11/2025 11:50:11 Plan of Treatment Reminders Order Date Submit Date Provider Last Modified By Organization Details Last Modified Time Details Appointments OV EST 20 2024 11:20A RON Sinclair Not available Not available Not available Lab vitamin D, 25-hydro xy, total, serum 2024 025 [facility], [address], [address], [place], [address], 02/16/2025 18:37:46 copper, serum or plasma 2024 025 [facility], [address], [address], [place], [address], 02/16/2025 18:37:49 selenium , quantita tive, blood 2024 025 [facility], [address], [address], [place], [address], 02/16/2025 18:37:52 prealbum in, serum 2024 025 [facility], [address], [address], [place], [address], 02/16/2025 18:37:51 zinc, serum or plasma 2024 025 [facility], [address], [address], [place], [address], 02/16/2025 18:37:50 folate, serum 2024 025 [facility], [address], [address], [place], [address], 02/16/2025 18:37:44 thiamine , QN, blood 2024 025 [facility], [address], [address], [place], [address], 02/16/2025 18:37:47 methylma lonate, QN, serum or plasma 2024 025 [facility], [address], [address], [place], [address], 02/16/2025 18:37:48 iron + TIBC + ferritin , serum 2024 025 [facility], [address], [address], [place], [address], 02/16/2025 18:37:38 CBC w/ auto diff 2024 025 [facility], [address], [address], [place], [address], 02/16/2025 18:37:40 CMP, serum or plasma 2024 025 [facility], [address], [address], [place], [address], 02/16/2025 18:37:42 vitamin E, serum 2024 025 [facility], [address], [address], [place], [address], 02/16/2025 18:37:43 vitamin A (retinol ), serum 2024 025 [facility], [address], [address], [place], [address], 02/16/2025 18:37:45 TSH + free T4, serum 2024 025 [facility], [address], [address], [place], [address], 02/16/2025 18:37:39 Referral None recorded . Procedures [...] /uL 3.4-10 .8 normal Not Available [facility] ([facility]) [address] [place], [address], 12/02/2024 03:38:32 12/02/1912/02/2024 CBC WITH DIFFE RENTI AL/PL ATELE T RBC 4.94 x10e6 /uL 3.77-5 .28 normal Not Available [facility] ([facility]) [address] [place], [address], 12/02/2024 03:38:32 12/02/19 25 12/02/2024 CBC WITH DIFFE RENTI AL/PL ATELE T hemoglobin 14.3 g/dL 11.1-1 5.9 normal Not Available [facility] ([facility]) [address] [place], [address], 12/02/2024 03:38:32 12/02/1912/02/2024 CBC WITH DIFFE RENTI AL/PL ATELE T hematocrit 41.7 % 34.0-4 6.6 normal Not Available [facility] ([facility]) [address] [place], [address], 12/02/2024 03:38:32 12/02/19 25 12/02/2024 CBC WITH DIFFE RENTI AL/PL ATELE T MCV 84 fL 79-97 normal Not Available [facility] ([facility]) [address] [place], [address], 12/02/2024 03:38:32 04/11/20 25 12/02/2024 CBC WITH DIFFE RENTI AL/PL ATELE T MCH 28.9 pg 26.6-3 3.0 normal Not Available [facility] ([facility]) [address] [facility], [place], [address], 12/02/2024 03:38:32 12/02/19 25 12/02/2024 CBC WITH DIFFE RENTI AL/PL ATELE T MCHC 34.3 g/dL 31.5-3 5.7 normal Not Available [facility] ([facility]) [address] [facility], [place], [address], 12/02/2024 03:38:32 12/02/19 25 12/02/2024 CBC WITH DIFFE RENTI AL/PL ATELE T RDW 14.5 % 11.7-1 5.4 Not Available [facility] ([facility]) [address] [facility], [place], [address], 12/02/2024 03:38:32 12/02/19 25 12/02/2024 CBC WITH DIFFE RENTI AL/PL ATELE T platelets 171 x10e3 /uL 150-45 0 normal Not Available [facility] ([facility]) [address] [facility], [place], [address], 12/02/2024 03:38:32 12/02/19 25 12/02/2024 CBC WITH DIFFE RENTI AL/PL ATELE T neutrophils 72 % not estab. normal Not Available [facility] ([facility]) [address] [facility], [place], [address], 12/02/2024 03:38:32 12/02/19 25 12/02/2024 CBC WITH DIFFE RENTI AL/PL ATELE T lymphs 21 % not estab. normal Not Available [facility] ([facility]) [address] [place], [address], 12/02/2024 03:38:32 12/02/19 25 12/02/2024 CBC WITH DIFFE RENTI AL/PL ATELE T monocytes 6 % not estab. normal Not Available [facility] ([facility]) [address] [facility], [place], [address], 12/02/2024 03:38:32 12/02/19 25 12/02/2024 CBC WITH DIFFE RENTI AL/PL ATELE T eos 1 % not estab. normal Not Available [facility] ([facility]) [address] [facility], [place], [address], 12/02/2024 03:38:32 12/02/19 25 12/02/2024 CBC WITH DIFFE RENTI AL/PL ATELE T basos 0 % not estab. normal Not Available [facility] ([facility]) [address] [facility], [place], [address], 12/02/2024 03:38:32 12/02/19 25 12/02/2024 CBC WITH DIFFE RENTI AL/PL ATELE T immature cells HEARING AND SPEECH ASSISTANT Not Available [facility] ([facility]) [address] [place], [address], 12/02/2024 03:38:32 12/02/19 25 12/02/2024 CBC WITH DIFFE RENTI AL/PL ATELE T neutrophils (absolute) 6.0 x10e3 /uL 1.4-7. 0 normal Not Available [facility] ([facility]) [address] [facility], [place], [address], 12/02/2024 03:38:32 12/02/19 25 12/02/2024 CBC WITH DIFFE RENTI AL/PL ATELE T lymphs (absolute) 1.8 x10e3 /uL 0.7-3. 1 normal Not Available [facility] ([facility]) [address] [place], [address], 12/02/2024 03:38:32 12/02/19 25 12/02/2024 CBC WITH DIFFE RENTI AL/PL ATELE T monocytes(ab solute) 0.5 x10e3 /uL 0.1-0. 9 normal Not Available [facility] ([facility]) [address] [place], [address], 12/02/2024 03:38:32 12/02/19 25 12/02/2024 CBC WITH DIFFE RENTI AL/PL ATELE T eos (absolute) 0.1 x10e3 /uL 0.0-0. 4 normal Not Available [facility] ([facility]) [address] [facility], [place], [address], 12/02/2024 03:38:32 12/02/19 25 12/02/2024 CBC WITH DIFFE RENTI AL/PL ATELE T baso (absolute) 0.0 x10e3 /uL 0.0-0. 2 normal Not Available [facility] ([facility]) [address] [place], [address], 12/02/2024 03:38:32 12/02/19 25 12/02/2024 CBC WITH DIFFE RENTI AL/PL ATELE T immature granulocytes 0 % not estab. Not Available [facility] ([facility]) [address] [place], [address], 12/02/2024 03:38:32 12/02/19 25 12/02/2024 CBC WITH DIFFE RENTI AL/PL ATELE T immature grans (abs) 0.0 x10e3 /uL 0.0-0. 1 Not Available [facility] ([facility]) [address] [place], [address], 12/02/2024 03:38:32 12/02/19 25 12/02/2024 CBC WITH DIFFE RENTI AL/PL ATELE T NRBC HEARING AND SPEECH ASSISTANT Not Available [facility] ([facility]) [address] [place], [address], 12/02/2024 03:38:32 12/02/19 25 12/02/2024 CBC WITH DIFFE KLAUS AL/PL DIA T hematology comments: HEARING AND SPEECH ASSISTANT Not Available [facility] ([facility]) [address] [facility], [place], [address], 12/02/2024 03:38:32 12/02/19 25 12/02/2024 COMP. METAB OLIC PANEL (14) glucose 96 mg/dL 70-99 normal Not Available [facility] ([facility]) [address] [facility], [place], [address], 12/02/2024 03:38:33 12/02/19 25 12/02/2024 COMP. METAB OLIC PANEL (14) BUN 5 mg/dL 6-20 below low normal Not Available [facility] ([facility]) [address] [facility], [place], [address], 12/02/2024 03:38:33 12/02/19 25 12/02/2024 COMP. METAB OLIC PANEL (14) creatinine 0.53 mg/dL 0.57-1 .00 below low normal Not Available [facility] ([facility]) [address] [place], [address], 12/02/2024 03:38:33 12/02/19 25 12/02/2024 COMP. METAB OLIC PANEL (14) eGFR 131 mL/mi n/1.7 3 >59 normal Not Available [facility] ([facility]) [address] [place], [address], 12/02/2024 03:38:33 12/02/19 25 12/02/2024 COMP. METAB OLIC PANEL (14) BUN/creatini ne ratio 9 9-23 normal Not Available [facility] ([facility]) [address] [place], [address], 12/02/2024 03:38:33 12/02/19 25 12/02/2024 COMP. METAB OLIC PANEL (14) sodium 136 mmol/ L 134-14 4 normal Not Available [facility] ([facility]) [address] [place], [address], 12/02/2024 03:38:33 12/02/19 25 12/02/2024 COMP. METAB OLIC PANEL (14) potassium 4.5 mmol/ L 3.5-5. 2 normal Not Available [facility] ([facility]) [address] [facility] [place], [address], 12/02/2024 03:38:33 12/02/19 25 12/02/2024 COMP. METAB OLIC PANEL (14) chloride 101 mmol/ L 96-106 normal Not Available [facility] ([facility]) [address] [facility] [place], [address], 12/02/2024 03:38:33 12/02/19 25 12/02/2024 COMP. METAB OLIC PANEL (14) carbon dioxide, total 20 mmol/ L 20-29 normal Not Available [facility] ([facility]) [address] [facility] [place], [address], 12/02/2024 03:38:33 12/02/19 25 12/02/2024 COMP. METAB OLIC PANEL (14) calcium 9.5 mg/dL 8.7-10 .2 normal Not Available [facility] ([facility]) [address] [facility] [place], [address], 12/02/2024 03:38:33 12/02/19 25 12/02/2024 COMP. METAB OLIC PANEL (14) protein, total 6.6 g/dL 6.0-8. 5 normal Not Available [facility] ([facility]) [address] [facility] [place], [address], 12/02/2024 03:38:33 12/02/19 25 12/02/2024 COMP. METAB OLIC PANEL (14) albumin 4.1 g/dL 4.0-5. 0 normal Not Available [facility] ([facility]) [address] [place], [address], 12/02/2024 03:38:33 12/02/19 25 12/02/2024 COMP. METAB OLIC PANEL (14) globulin, total 2.5 g/dL 1.5-4. 5 Not Available [facility] ([facility]) [address] [place], [address], 12/02/2024 03:38:33 12/02/19 25 12/02/2024 COMP. METAB OLIC PANEL (14) bilirubin, total 1.6 mg/dL 0.0-1. 2 above high normal Not Available [facility] ([facility]) [address] [place], [address], 12/02/2024 03:38:33 12/02/19 25 12/02/2024 COMP. METAB OLIC PANEL (14) alkaline phosphatase 83 IU/L 44-121 normal Not Available [facility] ([facility]) [address] [place], [address], 12/02/2024 03:38:33 12/02/19 25 12/02/2024 COMP. METAB OLIC PANEL (14) AST (SGOT) 46 IU/L 0-40 above high normal Not Available [facility] ([facility]) [address] [place], [address], 12/02/2024 03:38:33 12/02/19 25 12/02/2024 COMP. METAB OLIC PANEL (14) ALT (SGPT) 59 IU/L 0-32 above high normal Not Available [facility] ([facility]) [address] [place], [address], 12/02/2024 03:38:33 02/06/20 25 02/06/2025 FE+TI BC+FE R iron bind.cap.(TI BC) 357 ug/dL 250-45 0 normal Not Available [facility] ([facility]) [address] [place], [address], 02/16/2025 18:37:38 02/06/20 25 02/06/2025 FE+TI BC+FE R UIBC 292 ug/dL 131-42 5 normal Not Available [facility] ([facility]) [address] [facility], [place], [address], 02/16/2025 18:37:38 02/06/20 25 02/06/2025 FE+TI BC+FE R iron 65 ug/dL 27-159 normal Not Available [facility] ([facility]) [address] [facility], [place], [address], 02/16/2025 18:37:38 02/06/20 25 02/06/2025 FE+TI BC+FE R iron saturation 18 % 15-55 normal Not Available [facility] ([facility]) [address] [place], [address], 02/16/2025 18:37:38 02/06/20 25 02/06/2025 FE+TI BC+FE R ferritin 256 NG/mL 15-150 above high normal Not Available [facility] ([facility]) [address] [place], [address], 02/16/2025 18:37:38 02/06/20 25 02/06/2025 TSH+F REE T4 TSH 0.967 uIU/m L 0.450- 4.500 normal Not Available [facility] ([facility]) [address] [place], [address], 02/16/2025 18:37:39 02/06/20 25 02/06/2025 TSH+F REE T4 T4,free(dire ct) 0.82 NG/dL 0.82-1 .77 normal Not Available [facility] ([facility]) [address] [place], [address], 02/16/2025 18:37:39 02/06/20 25 02/06/2025 CBC WITH DIFFE RENTI AL/PL ATELE T WBC 6.1 x10e3 /uL 3.4-10 .8 normal Not Available [facility] ([facility]) [address] [place], [address], 02/16/2025 18:37:40 02/06/20 25 02/06/2025 CBC WITH DIFFE RENTI AL/PL ATELE T RBC 4.12 x10e6 /uL 3.77-5 .28 normal Not Available [facility] ([facility]) [address] [place], [address], 02/16/2025 18:37:40 02/06/20 25 02/06/2025 CBC WITH DIFFE RENTI AL/PL ATELE T hemoglobin 12.5 g/dL 11.1-1 5.9 normal Not Available [facility] ([facility]) [address] [place], [address], 02/16/2025 18:37:40 02/06/20 25 02/06/2025 CBC WITH DIFFE RENTI AL/PL ATELE T hematocrit 37.6 % 34.0-4 6.6 normal Not Available [facility] ([facility]) [address] [place], [address], 02/16/2025 18:37:40 02/06/20 25 02/06/2025 CBC WITH DIFFE RENTI AL/PL ATELE T MCV 91 fL 79-97 normal Not Available [facility] ([facility]) [address] [place], [address], 02/16/2025 18:37:40 02/06/20 25 02/06/2025 CBC WITH DIFFE RENTI AL/PL ATELE T MCH 30.3 pg 26.6-3 3.0 normal Not Available [facility] ([facility]) [address] [place], [address], 02/16/2025 18:37:40 02/06/20 25 02/06/2025 CBC WITH DIFFE RENTI AL/PL ATELE T MCHC 33.2 g/dL 31.5-3 5.7 normal Not Available [facility] ([facility]) [address] [facility], [place], [address], 02/16/2025 18:37:40 02/06/20 25 02/06/2025 CBC WITH DIFFE RENTI AL/PL ATELE T RDW 14.0 % 11.7-1 5.4 Not Available [facility] ([facility]) [address] [facility], [place], [address], 02/16/2025 18:37:40 02/06/20 25 02/06/2025 CBC WITH DIFFE RENTI AL/PL ATELE T platelets 230 x10e3 /uL 150-45 0 normal Not Available [facility] ([facility]) [address] [facility], [place], [address], 02/16/2025 18:37:40 02/06/20 25 02/06/2025 CBC WITH DIFFE RENTI AL/PL ATELE T neutrophils 67 % not estab. normal Not Available [facility] ([facility]) [address] [facility], [place], [address], 02/16/2025 18:37:40 02/06/20 25 02/06/2025 CBC WITH DIFFE RENTI AL/PL ATELE T lymphs 27 % not estab. normal Not Available [facility] ([facility]) [address] [facility], [place], [address], 02/16/2025 18:37:40 02/06/20 25 02/06/2025 CBC WITH DIFFE RENTI AL/PL ATELE T monocytes 5 % not estab. normal Not Available [facility] ([facility]) [address] [facility], [place], [address], 02/16/2025 18:37:40 02/06/20 25 02/06/2025 CBC WITH DIFFE RENTI AL/PL ATELE T eos 1 % not estab. normal Not Available [facility] ([facility]) [address] [facility], [place], [address], 02/16/2025 18:37:40 02/06/20 25 02/06/2025 CBC WITH DIFFE RENTI AL/PL ATELE T basos 0 % not estab. normal Not Available [facility] ([facility]) [address] [facility], [place], [address], 02/16/2025 18:37:40 02/06/20 25 02/06/2025 CBC WITH DIFFE RENTI AL/PL ATELE T immature cells HEARING AND SPEECH ASSISTANT Not Available [facility] ([facility]) [address] [facility], [place], [address], 02/16/2025 18:37:40 02/06/20 25 02/06/2025 CBC WITH DIFFE RENTI AL/PL ATELE T neutrophils (absolute) 4.1 x10e3 /uL 1.4-7. 0 normal Not Available [facility] ([facility]) [address] [place], [address], 02/16/2025 18:37:40 02/06/20 25 02/06/2025 CBC WITH DIFFE RENTI AL/PL ATELE T lymphs (absolute) 1.7 x10e3 /uL 0.7-3. 1 normal Not Available [facility] ([facility]) [address] [place], [address], 02/16/2025 18:37:40 02/06/20 25 02/06/2025 CBC WITH DIFFE RENTI AL/PL ATELE T monocytes(ab solute) 0.3 x10e3 /uL 0.1-0. 9 normal Not Available [facility] ([facility]) [address] [place], [address], 02/16/2025 18:37:40 02/06/20 25 02/06/2025 CBC WITH DIFFE RENTI AL/PL ATELE T eos (absolute) 0.0 x10e3 /uL 0.0-0. 4 normal Not Available [facility] ([facility]) [address] [place], [address], 02/16/2025 18:37:40 02/06/20 25 02/06/2025 CBC WITH DIFFE RENTI AL/PL ATELE T baso (absolute) 0.0 x10e3 /uL 0.0-0. 2 normal Not Available [facility] ([facility]) [address] [place], [address], 02/16/2025 18:37:40 02/06/20 25 02/06/2025 CBC WITH DIFFE RENTI AL/PL ATELE T immature granulocytes 0 % not estab. Not Available [facility] ([facility]) [address] [place], [address], 02/16/2025 18:37:40 02/06/20 25 02/06/2025 CBC WITH DIFFE RENTI AL/PL ATELE T immature grans (abs) 0.0 x10e3 /uL 0.0-0. 1 Not Available [facility] ([facility]) [address] [place], [address], 02/16/2025 18:37:40 02/06/20 25 02/06/2025 CBC WITH DIFFE RENTI AL/PL ATELE T NRBC HEARING AND SPEECH ASSISTANT Not Available [facility] ([facility]) [address] [place], [address], 02/16/2025 18:37:40 02/06/20 25 02/06/2025 CBC WITH DIFFE RENTI AL/PL ATELE T hematology comments: HEARING AND SPEECH ASSISTANT Not Available [facility] ([facility]) [address] [place], [address], 02/16/2025 18:37:40 02/06/20 25 02/06/2025 COMP. METAB OLIC PANEL (14) glucose 89 mg/dL 70-99 normal Not Available [facility] ([facility]) [address] [place], [address], 02/16/2025 18:37:42 02/06/20 25 02/06/2025 COMP. METAB OLIC PANEL (14) BUN 7 mg/dL 6-20 normal Not Available [facility] ([facility]) [address] [place], [address], 02/16/2025 18:37:42 02/06/20 25 02/06/2025 COMP. METAB OLIC PANEL (14) creatinine 0.43 mg/dL 0.57-1 .00 below low normal Not Available [facility] ([facility]) [address] [place], [address], 02/16/2025 18:37:42 02/06/20 25 02/06/2025 COMP. METAB OLIC PANEL (14) eGFR 137 mL/mi n/1.7 3 >59 normal Not Available [facility] ([facility]) [address] [place], [address], 02/16/2025 18:37:42 02/06/20 25 02/06/2025 COMP. METAB OLIC PANEL (14) BUN/creatini ne ratio 16 9-23 normal Not Available [facility] ([facility]) [address] [place], [address], 02/16/2025 18:37:42 02/06/20 25 02/06/2025 COMP. METAB OLIC PANEL (14) sodium 136 mmol/ L 134-14 4 normal Not Available [facility] ([facility]) [address] [place], [address], 02/16/2025 18:37:42 02/06/20 25 02/06/2025 COMP. METAB OLIC PANEL (14) potassium 4.5 mmol/ L 3.5-5. 2 normal Not Available [facility] ([facility]) [address] [facility] [place], [address], 02/16/2025 18:37:42 02/06/20 25 02/06/2025 COMP. METAB OLIC PANEL (14) chloride 105 mmol/ L 96-106 normal Not Available [facility] ([facility]) [address] [place], [address], 02/16/2025 18:37:42 02/06/20 25 02/06/2025 COMP. METAB OLIC PANEL (14) carbon dioxide, total 17 mmol/ L 20-29 below low normal Not Available [facility] ([facility]) [address] [place], [address], 02/16/2025 18:37:42 02/06/20 25 02/06/2025 COMP. METAB OLIC PANEL (14) calcium 9.7 mg/dL 8.7-10 .2 normal Not Available [facility] ([facility]) [address] [place], [address], 02/16/2025 18:37:42 02/06/20 25 02/06/2025 COMP. METAB OLIC PANEL (14) protein, total 6.2 g/dL 6.0-8. 5 normal Not Available [facility] ([facility]) [address] [place], [address], 02/16/2025 18:37:42 02/06/20 25 02/06/2025 COMP. METAB OLIC PANEL (14) albumin 3.8 g/dL 4.0-5. 0 below low normal Not Available [facility] ([facility]) [address] [facility] [place], [address], 02/16/2025 18:37:42 02/06/20 25 02/06/2025 COMP. METAB OLIC PANEL (14) globulin, total 2.4 g/dL 1.5-4. 5 Not Available [facility] ([facility]) [address] [place], [address], 02/16/2025 18:37:42 02/06/20 25 02/06/2025 COMP. METAB OLIC PANEL (14) bilirubin, total 0.5 mg/dL 0.0-1. 2 normal Not Available [facility] ([facility]) [address] [place], [address], 02/16/2025 18:37:42 02/06/20 25 02/06/2025 COMP. METAB OLIC PANEL (14) alkaline phosphatase 85 IU/L 44-121 normal Not Available [facility] ([facility]) [address] [place], [address], 02/16/2025 18:37:42 02/06/20 25 02/06/2025 COMP. METAB OLIC PANEL (14) AST (SGOT) 22 IU/L 0-40 normal Not Available [facility] ([facility]) [address] [place], [address], 02/16/2025 18:37:42 02/06/20 25 02/06/2025 COMP. METAB OLIC PANEL (14) ALT (SGPT) 22 IU/L 0-32 normal Not Available [facility] ([facility]) [address] [place], [address], 02/16/2025 18:37:42 02/06/20 25 02/16/2025 VITAM IN E vitamin E(alpha tocopherol) 13.7 mg/L 5.9-19 .4 Not Available [facility] ([facility]) [address] [place], [address], 02/16/2025 18:37:43 02/06/20 25 02/16/2025 VITAM IN [...] in E defic ient. Not Available [facility] ([facility]) [address] [facility], [place], [address], 02/16/2025 18:37:43 02/06/20 25 02/06/2025 FOLAT E (FOLI C ACID) , SERUM folate (folic acid), serum 4.2 NG/mL >3.0 normal A serum folat e matt ntrat ion of less than 3.1 ng/mL is consi dered to repre sent clini abby defic iency . Not Available [facility] ([facility]) [address] [facility], [place], [address], 02/16/2025 18:37:44 02/06/20 25 02/16/2025 VITAM IN [...] Drug Admin istra tion. Not Available [facility] ([facility]) [address] [facility], [place], [address], 02/16/2025 18:37:45 02/06/20 25 02/06/2025 VITAM IN [...] um and D. Lucretia pleitez [place]: [facility] . 2. Reinaldo moreno [place], Eileen mccann [place], David off-F errar i LILLY, et al. Evalu ation , treat ment, and preve ntion of vitam in D defic iency : an Endoc rine Socie ty clini abby pract ice guide line. JCEM. 2010; 96(7) :1911 -30. Not Available [facility] ([facility]) [address] [place], [address], 02/16/2025 18:37:46 02/06/20 25 02/08/2025 VITAM IN B1 (THIA MINE) , BLOOD vit. B1, whole blood 85.2 nmol/ L 66.5-2 00.0 Not Available [facility] ([facility]) [address] [place], [address], 02/16/2025 18:37:47 02/06/20 25 02/08/2025 METHY LMALO JAREK ACID, SERUM methylmaloni c acid, serum 79 nmol/ L 0-378 Not Available [facility] ([facility]) [address] [place], [address], 02/16/2025 18:37:48 02/06/20 25 02/09/2025 COPPE R, SERUM OR PLASM A copper, serum or plasma 188 ug/dL 80-158 above high normal Detec tion Limit = 5 Not Available [facility] ([facility]) [address] [place], [address], 02/16/2025 18:37:49 02/06/20 25 02/09/2025 ZINC, PLASM A OR SERUM zinc, plasma or serum 46 ug/dL 44-115 normal Detec tion Limit = 5 Not Available [facility] ([facility]) [address] [facility], [place], [address], 02/16/2025 18:37:50 02/06/20 25 02/06/2025 PREAL BUMIN prealbumin 16 mg/dL 14-35 Not Available [facility] ([facility]) [address] [facility], [place], [address], 02/16/2025 18:37:51 02/06/20 25 02/07/2025 SELEN IUM, BLOOD selenium, blood 125 ug/L 100-34 0 Detec tion Limit = 10 Not Available [facility] ([facility]) [address] [place] [facility], [place], [address], 02/16/2025 18:37:52 Result Notes None recorded. Problems Name Problem SNOMED Code Status Onset Date Resolution Date Notes Provider Name and Address Organization Details Recorded Time Paresthesi a of upper limb 00220086 Active 2023 Raquel Guillne, [address], [place], [address] , [facility] & [place] 4 15:38:11 Essential hypertensi on 20623691 Active 2023 RON Azar [address] , [place], [address] , [facility] & [place] 4 12:30:28 Obesity 096347101 Active 2023 RON Azar [address] , [place], [address] , [place] [facility] & [place] 4 12:30:50 Disorder of function of stomach 700648424 Active 2023 RON Azar [address] , [place], [address] , [facility] & [place] 4 12:30:50 Impaired glucose tolerance 4573679 Active 2023 RON Azar [address], [place], [address] , [place] [facility] [place] & [place] 4 12:31:02 Postoperat nicholas pain 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 2024 RON Azar [address] , [place], [address] , [place] [facility] [place] & [place] 5 08:04:37 Contact dermatitis 58545283 Active 2024 RON Azar [address] , [place], [address] , [place] [facility] [place] & [place] 5 10:32:01 Nausea 838787571 Active 2024 RON Azar [address] , [place], [address] , [place] [facility] [place] & [place] 5 09:06:20 Nausea and vomiting 94122303 Active 2024 RON Azar [address] , [place], [address] , [place] [facility] [place] & [place] 5 10:19:41 Bilious vomiting 70627495 Active 2024 RON Azar [address] , [place], [address] , [place] [facility] [place] & [place] 5 09:06:37 Mild dehydratio n 9554134049646 Active 2024 RON Azar [address], [place], [address] , [place] [facility] & [place] 5 09:09:44 Intentiona l weight loss 218316934 Active [address], [place], [address] , [place] [facility] & [place] 5 09:06:38 Body mass index 40+ - severely obese 298884186 Active 2024 RON Azar [address], [place], [address] , [place] [facility] [place] & [place] 5 09:07:05 Severe obesity 5239716291551 4 Active 2024 RON Azar [address], [place], [address] , [place] [facility] [place] & [place] 5 09:07:24 Nutritiona l deficiency state 58280852 Active 2024 RON Azar [address], [place], [address] , [place] [facility] [place] & [place] 5 10:04:26 Epigastric pain 87323973 Active 2024 RON Azar [address], [place], [address] , [place] [facility] [place] & [place] 5 10:16:35 Gestation period, 13 weeks 96958918 Active 2024 RON Azar [address], [place], [address] , [place] [facility] [place] & [place] 5 10:26:24 Gestation period, 19 weeks 46262143 Active 2024 RON Azar [address], [place], [address] , [place] [facility] [place] & [place] 5 13:38:05 Protein level - finding 244350833 Active 2024 RON Azar [address], [place], [address] , [place] [facility] [place] & [place] 5 13:39:22 Vitamin D deficiency 61262757 Active 2024 RON Azar [address], [place], [address] , [place] [facility] [place] & [place] 5 13:40:16 Heartburn 22141523 Active 2024 RON Azar [address], [place], [address] , [facility] & [place] 11:23:29 Problem Notes None recorded. Procedures Surgical History Date Name Laterality Status Provider Name and Address Organization Details Recorded Time 10/16/19 25 procedure on duodenum completed Parris Torres [facility] & [place] 11/09/2024 08:47:34 12/09/19 24 EMG/ Nerve Conduction Study completed Raquel Guillen DO [address], [place], [address], [facility] & [place] 12/09/2023 15:38:04 Cholecystectomy completed RON Azar [address], [place], [address], [facility] & [place] 07/04/2024 12:57:53 extraction of wisdom tooth completed Parris Torres [facility] & [place] 07/03/2024 15:07:44 Tonsillectomy completed Parris Torres [facility] & [place] 07/03/2024 15:07:52 procedure on ganglion cyst completed Stephanie Castro [facility] & [place] 10/04/2024 07:53:08 Imaging Results None recorded. Procedure [...] cm 97.1 [degF] 91 /min 40.5 kg/m2 337218. 35 g 141/100 mm[Hg] Stephanie Castro [facility] 5 09:49:04 Date Recorded Body height Body mass index (BMI) Body weight Body temperature Heart rate Systolic And Diastolic Provider Name and Address Organization Details Last Updated DateTime 5 170.18 cm 38.1 kg/m2 670727. 66 g 97.9 [degF] 99 /min 134/89 mm[Hg] Parris Torres [facility] 5 13:17:54 Date Recorded Body height Body mass index (BMI) Body weight Body temperature Oxygen saturation Oxygen saturation in Arterial blood by Pulse oximetry Heart rate Systolic And Diastolic Provider Name and Address Organization Details Last Updated DateTime 5 170.18 cm 35.9 kg/m2 675835. 45 g 97.4 [degF] 99 % 99 % 80 /min 112/78 mm[Hg] Flora Becerril [facility] & [place] 5 11:14:40 Social History Question Answer Notes LastModified by [employer] Details LastModified Time Tobacco Smoking Status Never Smoker Parris Torres [facility], [facility] & [place] 07/03/2024 15:12:10 What Is Your Level Of Caffeine Consumption? Occasional [email or web address] Information not available 07/04/2024 Sex: Female Functional Status Question Answer Note LastModified by [employer] Details LastModified Time Do you use any illicit or recreational drugs? No [email or web address] Information not available 07/03/2024 What is your level of alcohol consumption? Occasional [email or web address] Information not available 07/03/2024 Mental Status None recorded. Family History Relationship Description Onset Age of this Age Resolved Age Notes LastModified by Organization Details LastModified Time Father Hypertensive disorder [email or web address] Not available 06/2024 15:12:25 Father Hypercholest erolemia [email or web address] Not available 06/2024 15:12:51 Mother Hypertensive disorder [email or web address] Not available 06/2024 15:12:25 Mother Hypercholest erolemia [email or web address] Not available 06/2024 15:12:51 Mother Asthma [email or web address] Not availabl e 07/04/2024 13:49:15 Mother Chronic obstructive pulmonary disease [email or web address] Not available 06/2024 15:13:21 Maternal Grandmother Hypertensive disorder [email or web address] Not available 06/2024 15:12:25 Maternal Grandmother Chronic obstructive pulmonary disease [email or web address] Not available 06/2024 15:13:21 Maternal Grandfather Malignant neoplasm of lung [email or web address] Not available 06/23 13:49:15 Brother Asthma [email or web address] Not availab le 07/04/2024 13:49:15 Sister Asthma [email or web address] Not availabl e 07/04/2024 13:49:15 Medical History [...] ICD10 Code Diagnosis IMO Codes Diagnosis Note [id number] Raquel Guillen, ZZ [facility] Neurology [address] [facility] [place] [address] 12/09/2023 15:31:14 12/09/2023 16:01:57 Paresthesia of upper limb 98723817 R20.2 [id number] RON Azar [facility] [address] [place] [address] [address] [place] [address] 07/04/2024 11:29:18 07/04/2024 14:10:15 Obesity 226179672 E66.9 The patient will be scheduled for [...] completed Disorder o f function of stomach 006208637 K31.89 Pre-surger y evaluation 842228885 Z01.818 Obesity screening 967541 005 Z13.89 Essential hypertension 14738424 I10 Impaired g lucose tolerance 2301693 R73.[id number] [facility] [address] [facility] [address] [place] [address] 07/04/2024 13:49:08 07/04/2024 14:22:02 Dietary management surveillance 973556171 Z71.3 Completed nutrition evaluation and education with [...] to patient based on recommende d surgery. [id number] Forest Mena MD [facility] [address] [facility] [address] [place] [address] 08/01/2024 09:01:56 08/01/2024 09:49:38 Preoperative cardiovascular examination 507664803 Z01.810 23-year-ol d female sent for preoperati ve cardiovasc ular evaluation for weight loss surgery. She is physically active asymptomat ic can do more than 6 METs with no limitation s. EKG normal sinus rhythm. She can proceed with the surgery as low risk patient for moderate risk procedure from the cardiovasc ular standpoint . Obesity 657917805 E66.9 obesity body mass index 49.8. For weight loss surgery. Recommend sleep apnea evaluation . Essential hypertension 56902488 I10 hypertensi on on hydrochlor othiazide. Recommend switching to beta mathew because she is in the childbeari ng age. Patient declined at this time. She understand s the possible side effects of hydrochlor othiazide. [id number] [address] [facility] [address] [facility] [address] [place] [address] 08/08/2024 12:37:07 08/08/2024 13:20:53 Dietary management surveillance 127648049 Z71.3 [id number] KALI HAMILTON MD [facility] [address] [facility] [address] [place] [address] 10/04/2024 07:39:52 10/04/2024 14:13:26 Morbid obesity 579739415 E66.01 Pre-surger y evaluation 844679657 Z01.818 Postoperative pain 50639 9007 G89.18 pt will continue pregabalin post operativel y Essential hypertension 08979461 I10 Impaired g lucose tolerance 0706652 R73.03 [id number] RON Azar [facility] [address] [facility] [address] [place] [address] 10/24/2024 07:55:40 10/24/2024 10:33:45 History of gastrectomy 307411182 Z90.3 Encouraged patient to continue focus on intake of adequate protein and hydration. Advised minimum 70 g of protein and 800 calories. Patient is to continue incentive spirometer for another 5-7 days Encouraged ambulation Patient is to start bariatric approved vitamin Follow up 3 weeks Contact dermatitis 22659 004 L25.9 Likely from surgical glue. Patient advised to keep area clean. She may apply Benadryl cream or calamine lotion. Advised she take Zyrtec q.a.m. and Benadryl q.p.m.. Advised she avoid scratching these areas. She is report any worsening symptoms. [id number] RON Azar [facility] [address] [place] [address] [address] [place] [address] 11/09/2024 08:34:40 11/09/2024 14:27:44 Nausea and vomiting 88350050 R11.2 1539640523 Long discussion today regarding adherence to advise [...] to keep scheduled follow-up 11/17/2024 Mild dehydration 3412837 119 108 E86.0 [id number] Patient will have to a L normal saline IV rehydratio n today in office. History of gastrectomy 311569421 Z90.3 [id number] s/p TORI-s 10/16/24 [id number] RON Azar [facility] [address] [place] [place], [place] [address] 11/17/2024 08:51:00 11/17/2024 09:41:49 Disorder of function of stomach 868839279 K31.89 Long discussion with patient regarding fatigue [...] call for any worsening symptoms Essential hypertension 70888544 I10 Stop monitor and discussed with PCP Impaired g lucose tolerance 9355174 R73.03 History of gastrectomy 309241349 Z90.3 We discussed diet and the importance [...] to correct any vitamin deficienci es. [facility] of nutritional deficit 575401468 Z91.89 Severe obesity 833260877 1 9104 E66.813 E66.01 Z68.41 3925768171 [id number] [address] [facility] Adv Surg [address] [facility] [address] [place] [place], [place] [address] 11/17/2024 09:37:00 11/17/2024 10:29:59 Diet education 43424791 Z71.3 715349 [id number] RON Azar [facility] [address] [place] [address] 12/01/2024 09:40:04 12/01/2024 10:22:02 Nausea and vomiting 66108299 R11.2 1448586416 Long discussion with patient regarding fatigue and [...] has been resulted Nutritiona l deficiency state 72951299 E63.9 20715 Encouraged patient see focus on p.o. intake. Advised she continue small frequent sips of protein drinks. History of gastrectomy 838991657 Z90.3 s/p Tori-s 10/16/24 with continued struggles including nausea vomiting p.o. intake.Carmen thorne had upper GIPatient will be scheduled for upper endoscopy for further evaluation Epigastric pain 28555565 R10.13 32574 Advised patient to continue omeprazole . We [...] atient is advised to go to this [place] [facility] for any acute worsening symptoms [id number] [address] [facility] Adv Surg [address] [facility] [address] [place] [address] 12/27/2024 09:45:05 12/27/2024 11:07:46 Diet education 52134711 Z71.3 [id number] RON Azar [facility] [address] [facility] [address] [place] [address] 12/27/2024 09:47:12 12/27/2024 12:24:19 Gestation period, 13 weeks 42655935 Z3A.13 [id number] Pt seen with Dr Guillen today.Advi sed to continue vitamins. Next labs due January 2025Pt has appt with supervisor counseling and guidance today to discuss caloric need. Advise minimal 2665-5142 calories daily and 90 g proteinPt has high school agriculture teacher appt today in [place] to establish carePt given copy of recent labs to share with OB History of gastrectomy 674078027 Z90.3 [id number] s/p Tori-s 10/16/24Fol lowup with labs January 2025 [id number] RON Azar [facility] Adv [facility] [address] [facility] [address] [place] [address] 02/05/2025 13:13:06 02/05/2025 13:59:10 Gestation period, 19 weeks 02495514 Z3A.19 1477307 is progressin g well. Patient has a follow-up with obstetrici an on 02/07/2025 We are drawing labs today and we shared these with her obstetrici an. Nausea 077195197 R11.0 17011875 Patient has prescripti on of Zofran. She is to use this as needed. Nutritiona l assessment 431199410 Z00.8 906048 Encouraged patient track calories and protein. Advised 12-1500 calories and 80 g of protein daily.Evita ent declines dietitian visit todayPatie nt is to continue vitamin supplement ation. We are checking bariatric vitamin panel will contact patient to correct any deficienci es History of gastrectomy 277579068 Z90.3 Advised qid intake 50% protein 7168-7887 calories/d y less than 100 carbs/dy Patient is status post bariatric surgery and at increased risk for vitamin deficienci es and malnutriti on. Bariatric vitamin panel ordered today. Patient will be contacted to correct any vitamin deficienci es. [facility] 706522467 Z91.89 Protein le eugene - finding 627539993 R79.89 004748 Vitamin D deficiency 347 62679 E55.9 47582 [id number] RON Azar [facility] Adv Surg [address] [facility] [address] [place] [address] 05/11/2025 11:05:40 05/11/2025 11:31:29 Heartburn 38186039 R12 95453 heartburn is to be expected with . Patient is to continue Tums as needed. She is to call for any worsening heartburn Normal 4483721 2 Z34.93 [id number] patient is now 32 weeks gravid. she is to continue to follow up with her obstetrici an.Discuss ed healthy nutrition to support . Encouraged patient to continue focus on protein fruits and vegetables . Small frequent meals Advised.Ron benjamin is to meet with our dietitian today. History of gastrectomy 182818292 Z90.3 [id number] Patient is status post bariatric surgery and at increased risk for vitamin deficienci es and malnutriti on. Patient is to continue vitamin supplement ation. We will recheck vitamin levels at next office visit [id number] [facility] Bariat[facility] Adv Surg [address] [facility] [address] [place] [address] 05/11/2025 11:30:41 05/11/2025 12:10:39 Diet education 47887629 Z71.3 [id number] Health Concerns Section Related Observation LastModified by Organization Detai ls LastModified Time None Recorded Concern Status LastModified by Organization Details LastModified Time None Recorded Advance Directives Directive None Recorded Payers Insurance Date Sequence Insurance Name Policy Number Policy Sanchez Covered Member ID Sanchez Member ID Guarantor Name 06/21/2024 1 [facility] [place] Penelope Christina [id number] Penelope Christina 11/06/2024 [facility] [id number] Penelope Christina [id number] Penelope Christina 06/21/2024 2 [facility] [id number] 1 Penelope Christina [id number] Penelope Christina 08/01/2024 1 [facility] Penelope Christina [id number] Penelope Christina 05/14/2025 1 [facility] [place] - [place] [facility] Penelope Christina [id number] Penelope Christina Notes Date Note Type Note [...] Tori-s 10/16/ UGI (Read as [facility]) No stricture identified no hiatal hernia normal [...] to return to work. 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 She states her terrazzo polisher has her this the subchorionic hematoma is [...] Tori-s 10/16/ UGI (Read as [facility]) No stricture identified no hiatal hernia normal [...] to return to work. 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 OB is Dr Faye Hartmann. Patient presents the office today for routine follow-up status post bariatric surgery.Pt is now 32 wks gravid. . She is having baby boy. she states everything is going well. Her terrazzo polisher seems to be happy with things. She [...] states she had recent labs with her terrazzo polisher approximately 2 weeks ago and they were [...] she is doing well. She states her terrazzo polisher has her this the subchorionic hematoma is [...] to take medication during . RON Azar [address], [place], [address], [facility] - [place] & [place] 05/11/2025 12:11:51 05/11/2025 text/html RDN met w/ pt for f/up s/p TORI-S. Pt is now 32 weeks . 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 daily kcal intake: 6035-5985 Est. daily protein intake: 70-90 Est. daily fluid intake: 50+ oz Meal Frequency/Pattern: eating almost every hour and doing protein focusedprotein shakes in the morning, protein spaghetti, eggs, adding in more beans, tuna, oikos drinks Drinks: body armor water Foods Not Tolerated: none noted Additional notes/concerns: Able to get food stamps and getting WIC, [employer], housing assistance ISRAEL HERNÁNDEZ, [address], [place], [address], [facility] - [place] & [place] 05/11/2025 11:50:26 OBGyn Episode No OBEpisode recorded.
--- OUTSIDE RECORDS SUMMARY | 2025-06-26 10:11 | XMS_ITS | Continuity of Care Document ---
Author Organization [place] - [facility] & [facility] Surg Address [address] [place] [address] Care Team Providers Care Carbon Accountant Name Role Phone KARLOS CHESTER Primary Care [...] modifications. Will f/up as scheduled or PRN. [email or web address] Not available 05/11/2025 11:50:11 Plan of Treatment [...] Recorded Time Paresthesi a of upper limb 34882569 Active 2023 Raquel Guillen, DO [address], [place], [address] , [place] - [facility] - [place] & [place] 4 15:38:11 Essential hypertensi on 65698476 Active [address], [place], [address] , [place] [facility] [place] & [place] 4 12:30:28 Obesity 519143644 Active [address], [place], [address] , [place] [facility] [place] & [place] 4 12:30:50 Disorder of function of stomach 646007104 Active [address], [place], [address] , [place] [facility] [place] & [place] 4 12:30:50 Impaired glucose tolerance 6700642 Active [address], [place], [address] , [place] [facility] [place] & [place] 4 12:31:02 Postoperat nicholas pain 729879702 Active [address], [place], [address] , [place] [facility] [place] & [place] 5 08:04:37 Contact dermatitis 45617210 Active [address], [place], [address] , [place] [facility] [place] & [place] 5 10:32:01 Nausea 295022329 Active [address], [place], [address] , [place] [facility] [place] & [place] 5 09:06:20 Nausea and vomiting 79303678 Active [address], [place], [address] , [place] [facility] & [place] 5 10:19:41 Bilious vomiting 75035681 Active [address], [place], [address] , [place] [facility] [place] 5 09:06:37 Mild dehydratio n 8942379914596 Active [address], [place], [address] , [place] [facility] 5 09:09:44 Intentiona l weight loss 105748987 Active [address], [place], [address] , [place] [facility] & [place] 5 09:06:38 Body mass index 40+ - severely obese 544177184 Active [address], [place], [address] , [place] [facility] [facility] & [place] 5 09:07:05 Severe obesity 9267407703644 4 Active [address], [place], [address] , [place] [facility] [facility] & [place] 5 09:07:24 Nutritiona l deficiency state 23527280 Active [address], [place], [address] , [place] [facility] [facility] & [place] 5 10:04:26 Epigastric pain 65468799 Active [address], [place], [address] , [place] [facility] 5 10:16:35 Gestation period, 13 weeks 71645790 Active [address], [place], [address] , [place] [facility] 10:26:24 Gestation period, 19 weeks 54235511 Active [address], [place], [address] , [place] [facility] 13:38:05 Protein level - finding 196257023 Active [address], [place], [address] , [place] [facility] [facility] & [place] 13:39:22 Vitamin D deficiency 19670373 Active [address], [place], [address] , [place] [facility] & [place] 13:40:16 Heartburn 30414798 Active [address], [place], [address] , [place] [facility] & [place] 11:23:29 Problem Notes None recorded. Procedures Surgical History Date Name Laterality Status Provider Name and Address Organization Details Recorded Time 10/16/19 25 procedure on duodenum completed Parris Torres [place] - [facility] & [place] 11/09/2024 08:47:34 12/09/19 24 EMG/ Nerve Conduction Study completed DO [address], [place], [address], [place] - [facility] & [place] 12/09/2023 15:38:04 [address] completed [address], [place], [address], [place] - [facility] & [place] 07/04/2024 12:57:53 extraction of wisdom tooth completed Parris GUTHRIE - [facility] & [place] 07/03/2024 15:07:44 Tonsillectomy completed Parris GUTHRIE - [facility] & [place] 07/03/2024 15:07:52 procedure on ganglion cyst completed Stephanie Castro [place] - [facility] - [place] & [place] 10/04/2024 07:53:08 Imaging Results None [...] Last Updated DateTime 170.18 cm 35.9 kg/m2 636048. 45 g 97.4 [degF] 99 % 99 % 80 /min 112/78 mm[Hg] Flora Becerril [facility] & [place] 11:14:40 Social History Question Answer Notes LastModified by [employer] Details LastModified Time Tobacco Smoking Status Never Smoker Parris Torres null, [facility] & [place] 07/03/2024 15:12:10 What Is Your Level Of Caffeine Consumption? Occasional [email or web address] Information not available 07/04/2024 Sex: Female Functional Status Question Answer Note LastModified by [employer] Details LastModified Time Do you use any illicit or recreational drugs? No Information not available 07/03/2024 What is your level of alcohol consumption? Occasional [email or web address] Information not available 07/03/2024 Mental Status None recorded. Family History Relationship Description Onset Age of this Age Resolved Age Notes LastModified by Organization Details LastModified Time Father Hypertensive disorder [email or web address] Not available 06/2024 15:12:25 Father Hypercholest erolemia [email or web address] Not available 06/2024 15:12:51 Mother Hypertensive disorder [email or web address] Not available 06/2024 15:12:25 Mother Hypercholest erolemia [email or web address] Not available 06/2024 15:12:51 Mother Asthma [email or web address] Not availabl e 07/04/2024 13:49:15 Mother Chronic obstructive pulmonary disease [email or web address] Not available 06/2024 15:13:21 Maternal Grandmother Hypertensive disorder [email or web address] Not available 06/2024 15:12:25 Maternal Grandmother Chronic obstructive pulmonary disease [email or web address] Not available 06/2024 15:13:21 Maternal Grandfather Malignant neoplasm of lung [email or web address] Not available 06/23 13:49:15 Brother Asthma [email or web address] Not availab le 07/04/2024 13:49:15 Sister Asthma [...] ICD10 Code Diagnosis IMO Codes Diagnosis Note [id number] RON [address] [facility] Bariatric s and Adv Surg [address] [place] [address] 05/11/2025 11:05:40 05/11/2025 11:31:29 Heartburn 65362469 R12 08900 heartburn is to be expected with . Patient is to continue Tums as needed. She is to call for any worsening heartburn Normal 7951238 2 Z34.93 [id number] patient is now 32 weeks gravid. she is to continue to follow up with her obstetrici an.Discuss ed healthy nutrition to support . Encouraged patient to continue focus on protein fruits and vegetables . Small frequent meals Advised.Ron benjamin is to meet with our dietitian today. History of gastrectomy 533596796 Z90.3 044134 Patient is status post bariatric surgery and at increased risk for vitamin deficienci es and malnutriti on. Patient is to continue vitamin supplement ation. We will recheck vitamin levels at next office visit [id number] [facility] Bariatric s and Adv Surg [address] [place] [address] 05/11/2025 11:30:41 05/11/2025 12:10:39 Diet education 37828475 Z71.3 960294 Health Concerns Section Related Observation LastModified by Organization Detai ls LastModified Time None Recorded Concern Status LastModified by Organization Details LastModified Time None Recorded Payers Encounter Date Sequence Insurance Name Policy Number Policy Sanchez Covered Member ID Sanchez Member ID Guarantor Name 05/11/2025 1 [facility] ([place] REPLAC[place] - [place]MO) MARY Christina [id number] Penelope Christina Notes Date Note Type Note [...] she states everything is going well. 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 She [...] states she had recent labs with her merchandise flow team leader approximately 2 weeks ago and they were [...] she is doing well. She states her merchandise flow team leader has her this the subchorionic hematoma is [...] during . [address], [place], [address], [facility] & [place] 05/11/2025 12:11:51 05/11/2025 text/html RDN met w/ pt for f/up s/p TORI-S. Pt is now 32 weeks . 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 daily kcal intake: 0254-3412 Est. daily protein intake: 70-90 Est. daily fluid intake: 50+ oz Meal Frequency/Pattern: eating almost every hour and doing protein focusedprotein shakes in the morning, protein spaghetti, eggs, adding in more beans, tuna, oikos drinks Drinks: body armor water Foods Not Tolerated: none noted Additional notes/concerns: Able to get food stamps and getting WIC, [employer], housing assistance [address], [place], [address], [facility] - NT [facility] & [place] 05/11/2025 11:50:26 OBGyn Episode No OBEpisode recorded.
--- OUTSIDE RECORDS SUMMARY | 2025-06-26 10:12 | XMS_ITS | Clinical Summary ---
Author Organization [facility] Address [address] [place] [address] Care Team Providers Care Employee Relations Assistant Name Role Phone Felipa Her APRN Primary Care Provider [phone] Allergies No known active allergies Medications hydroCHLOROthiazid e (HYDRODIURIL) 12.5 MG tablet 1 tablet. 03/30/20 23 Active Cholecalciferol (Vitamin D3) 1.25 MG (11351 UT) capsule TAKE ONE CAPSULE BY MOUTH [...] 03/23/2025 06/05/2015, , 05/10/2013, Additional history exists TDAP/TD VACCINES (2 - Td or Tdap) 06/05/2025 06/05/2015 HPV VACCINES Completed 12/08/2012, 04/2012, 05/31/2012 Pneumococcal Vaccine 0-49 Aged Out No longer eligible based on patient's age to complete this topic RSV Vaccine - Adults (No Doses Required) Completed Insurance [facility] PLAN [facility] Care Teams Employee Relations Assistant Relationship Specialty Start Date End Date Felipa Her APRN [address] [place] [id number] PCP - General Nurse Practitioner 08/10/23
--- OUTSIDE RECORDS SUMMARY | 2025-06-26 10:12 | XMS_ITS | Continuity of Care Document ---
Author Organization [facility] & [facility]ariat[facility] Adv Surg Address [address] [place] [address] Care Team Providers Care Director Security Management Name Role Phone KARLOS CHESTER Primary [...] Recorded Time Paresthesi a of upper limb 94192759 Active 2023 Raquel Guillen DO [address] , [place], [address] , [facility] & [place] 4 15:38:11 Essential hypertensi on 71506795 Active 2023 [address] , [place], [address] , [facility] & [place] 4 12:30:28 Obesity 498796223 Active 2023 [address], [place], [address] , [facility] & [place] 4 12:30:50 Disorder of function of stomach 980930014 Active 2023 [address], [place], [address] , [place] [facility] [place] & [place] 4 12:30:50 Impaired glucose tolerance 8474882 Active 2023 [address], [place], [address] , [place] [facility] & [place] 4 12:31:02 Postoperat nicholas pain 063480148 Active 2024 [address], [place], [address] , [place] [facility] & [place] 5 08:04:37 Contact dermatitis 57356643 Active 2024 [address], [place], [address] , [place] [facility] & [place] 5 10:32:01 Nausea 575795251 Active 2024 [address] , [place], [address] , [place] [facility] 5 09:06:20 Nausea and vomiting 17549801 Active 2024 [address], [place], [address] , [place] [facility] 5 10:19:41 Bilious vomiting 12000382 Active 2024 [address], [place], [address] , [place] [facility] 5 09:06:37 Mild dehydratio n 7324938088575 Active 2024 [address], [place], [address] , [place] [facility] & [place] 5 09:09:44 Intentiona l weight loss 118167326 Active 2024 [address], [place], [address] , [place] [facility] 5 09:06:38 Body mass index 40+ - severely obese 877815808 Active 2024 [address], [place], [address] , [place] [facility] & [place] 5 09:07:05 Severe obesity 4566985492020 4 Active 2024 [address], [place], [address] , [place] [facility] 5 09:07:24 Nutritiona l deficiency state 80254543 Active 2024 [address], [place], [address] , [place] [facility] 5 10:04:26 Epigastric pain 47539503 Active 2024 [address], [place], [address] , [place] [facility] [facility] & [place] 5 10:16:35 Gestation period, 13 weeks 78565106 Active 2024 [address], [place], [address] , [place] [facility] 5 10:26:24 Gestation period, 19 weeks 59699047 Active 2024 [address], [place], [address] , [place] [facility] & [place] 5 13:38:05 Protein level - finding 194304075 Active 2024 [address], [place], [address] , [place] [facility] [facility] & [place] 5 13:39:22 Vitamin D deficiency 67958234 Active 2024 [address], [place], [address] , [facility] & [place] 13:40:16 Heartburn 15679823 Active 2024 [address] , [place], [address] , [facility] & [place] 11:23:29 Problem Notes None recorded. Procedures Surgical History Date Name Laterality Status Provider Name and Address Organization Details Recorded Time 10/16/19 25 procedure on duodenum completed Parris Torres [facility] & [place] 11/09/2024 08:47:34 12/09/19 24 EMG/ Nerve Conduction Study completed Raquel Guillen DO [address], [place], [address], [facility] & [place] 12/09/2023 15:38:04 Cholecystectomy completed [address], [place], [address], [facility] & [place] 07/04/2024 12:57:53 extraction of wisdom tooth completed Parris Torres [facility] & [place] 07/03/2024 15:07:44 Tonsillectomy completed Parris Torres [facility] & [place] 07/03/2024 15:07:52 procedure on ganglion cyst completed Stephanie Castro [facility] & [place] 10/04/2024 07:53:08 Imaging Results None recorded. Procedure [...] completed Not Available Not Available Not Available Bannerte ODT 75 mg disintegrat ing tablet 12/27 completed Not Available Not Available Not Available Vitals Date Recorded Body height Body mass index (BMI) Body weight Body temperature Oxygen saturation Oxygen saturation in Arterial blood by Pulse oximetry Heart rate Systolic And Diastolic Provider Name and Address Organization Details Last Updated DateTime 5 170.18 cm 35.9 kg/m2 259900. 45 g 97.4 [degF] 99 % 99 % 80 /min 112/78 mm[Hg] Flora Becerril [facility] & [place] 5 11:14:40 Social History Question Answer Notes LastModified by Organizat ion Details LastModified Time Tobacco Smoking Status Never Smoker Parris neely, [facility] & [place] 07/03/2024 15:12:10 What Is Your Level Of Caffeine Consumption? Occasional Information not available 07/04/2024 Sex: Female Functional Status Question Answer Note LastModified by Organizat ion Details LastModified Time Do you use any illicit or recreational drugs? No [email or web address] Information not available 07/03/2024 What is your level of alcohol consumption? Occasional [email or web address] Information not available 07/03/2024 Mental Status None recorded. Family History Relationship Description Onset Age of this Age Resolved Age Notes LastModified by Organization Details LastModified Time Father Hypertensive disorder [email or web address] Not available 06/2024 15:12:25 Father Hypercholest erolemia [email or web address] Not available 06/2024 15:12:51 Mother Hypertensive disorder [email or web address] Not available 06/2024 15:12:25 Mother Hypercholest erolemia [email or web address] Not available 06/2024 15:12:51 Mother Asthma [email or web address] Not availabl e 07/04/2024 13:49:15 Mother Chronic obstructive pulmonary disease [email or web address] Not available 06/2024 15:13:21 Maternal Grandmother Hypertensive disorder [email or web address] Not available 06/2024 15:12:25 Maternal Grandmother Chronic obstructive pulmonary disease [email or web address] Not available 06/2024 15:13:21 Maternal Grandfather Malignant neoplasm of lung [email or web address] Not available 06/23 13:49:15 Brother Asthma [email or web address] Not availab le 07/04/2024 13:49:15 Sister Asthma [email or web address] Not availabl e 07/04/2024 13:49:15 Medical History [...] ICD10 Code Diagnosis IMO Codes Diagnosis Note [id number] RON Azar [facility] Adv S[facility] [address] [place] [address] 05/11/2025 11:05:40 05/11/2025 11:31:29 Heartburn 59350837 R12 40929 heartburn is to be expected with . Patient is to continue Tums as needed. She is to call for any worsening heartburn Normal 1597833 2 Z34.93 [id number] patient is now 32 weeks gravid. she is to continue to follow up with her obstetrici an.Discuss ed healthy nutrition to support . Encouraged patient to continue focus on protein fruits and vegetables . Small frequent meals Advised.Ron benjamin is to meet with our dietitian today. History of gastrectomy 406883373 Z90.3 980514 Patient is status post bariatric surgery and at increased risk for vitamin deficienci es and malnutriti on. Patient is to continue vitamin supplement ation. We will recheck vitamin levels at next office visit [id number] [facility] Bariatric s and Adv Surg [address] [place] [address] 05/11/2025 11:30:41 05/11/2025 12:10:39 Diet education 84366619 Z71.3 886214 Health Concerns Section Related Observation LastModified by Organization Detai ls LastModified Time None Recorded Concern Status LastModified by Organization Details LastModified Time None Recorded Payers Encounter Date Sequence Insurance Name Policy Number Policy Sanchez Covered Member ID Sanchez Member ID Guarantor Name 05/11/2025 1 [facility] ([place] REPL[place] - [place]) MARY Christina [id number] Penelope Christina Notes Date Note Type Note [...] she states everything is going well. 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 She [...] states she had recent labs with her fruit buying grader approximately 2 weeks ago and they were [...] she is doing well. She states her fruit buying grader has her this the subchorionic hematoma is [...] to take medication during . [address], [place], [address], [place] [facility] [place] & [place] 05/11/2025 12:11:51 05/11/2025 text/html RDN met w/ pt for f/up s/p TORI-S. Pt is now 32 weeks . 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 daily kcal intake: 3300-5440 Est. daily protein intake: 70-90 Est. daily fluid intake: 50+ oz Meal Frequency/Pattern: eating almost every hour and doing protein focusedprotein shakes in the morning, protein spaghetti, eggs, adding in more beans, tuna, oikos drinks Drinks: body armor water Foods Not Tolerated: none noted Additional notes/concerns: Able to get food stamps and getting WIC, [employer], housing assistance [address], [place], [address], [facility] & [place] 05/11/2025 11:50:26 OBGyn Episode No OBEpisode recorded.
[2025-06-26 10:48] LABS: Hematocrit 42.4 % (37.0-47.0); Hemoglobin 14.3 g/dL (12.2-16.2); Immature Granulocytes % 0.3 %; Mean Corpuscular HGB Conc 33.7 g/dL (31.8-35.4); Mean Corpuscular Hemoglobin 32.2 pg (27.0-31.2); Mean Corpuscular Volume 95.5 fl (81-99); Nucleated Red Blood Cells % 0 %; Platelet Count 245 K/mm3 (142-424); Red Blood Count 4.44 M/mm3 (4.20-5.40); Red Cell Distribution Width-SD 56.0 fL; White Blood Count 7.2 K/mm3 (4.8-10.8)
[2025-06-26 11:46] LABS: Iron 76 ug/dL (37-170)
[2025-06-26 11:56] LABS: Total Iron Binding Capacity 400 ug/dL (265-497)
[2025-06-26 12:18] LABS: Ferritin 55.3 ng/ml (6.24-137)
== END 2025-06-26 23:59 | disposition home or self-care (01) ==
LOC: LAB 10:09
PROVIDERS: PCP Nurse Practitioner Family; Visit Provider Nurse Practitioner Family
DX: D64.9 Anemia, unspecified (principal); Z98.84 Bariatric surgery status
CPT/HCPCS: 36415; 82728; 83540; 83550; 85025